=== PATIENT | female | born 1955 | race Caucasian/White ===

== ENCOUNTER 2024-10-26 23:15 | Inpatient (IN) | payer MEDICARE, SELFPAY ==
--- NOTE | ~2024-10-26 | CT_ITS ---
CT of the Abdomen and Pelvis: Indication: Abdominal pain Technique: 2.5 mm axial scans were obtained through the abdomen and pelvis following intravenous adm inistration of 100 cc of Omnipaque 350. Dose reduction technique was used on this scan by utilizing a utomated exposure control and iterative reconstruction technique. The dose-length product (DLP) was 1 940.28 mGy-cm. Findings: Scans through the lung bases are unremarkable. The liver, spleen, pancreas, adrenals and kidneys are within normal limits. Calcified gallstone prese nt. No evidence of aortic aneurysm. No lymphadenopathy. There are multiple mildly distended small bowel loops with extensive haziness/inflammatory change in the mesentery adjacent to these loops. Large bowel unremarkable. No abscess or free air. No well deli neated transition point. Images through the pelvis were performed. Urinary bladder unremarkable. No pelvic mass seen. Impression: Multiple mildly distended small bowel is within central mesenteric haziness/inflammatory change. [place] for early/partial small bowel obstruction versus possibly enteritis and reactive ileus. Cholelithiasis. Reviewed, dictated and finalized at [facility]. NG MACHINE ATTACHMENT TESTER Impression: Multiple mildly distended small bowel is within central mesenteric haziness/inf lammatory change. Correlate for early/partial small bowel obstruction versus po ssibly enteritis and reactive ileus. Cholelithiasis.
--- NOTE | ~2024-10-26 | XR_ITS ---
XR chest 1V portable 11/02/2024 11:14 Indication: Hypoxia Procedure: AP portable chest Comparison: Comparison to multiple prior studies sequentially, with oldest reviewed study dated 04/2024 . Findings: Endotracheal tube tip 3.3 cm above the jonathon. NG tube in the stomach. Cardiomegaly. Mild i nterstitial edema. No significant effusion. No pneumothorax. Impression: 1: Persistent mild interstitial edema. Reviewed, dictated and finalized at location B. ER COVERING MACHINE OPERATOR Impression: 1: Persistent mild interstitial edema.
--- NOTE | ~2024-10-26 | XR_ITS ---
EXAMINATION: XR chest 1V portable DATE: 10/28/2024 10:30 INDICATION: Acute respiratory failure. TECHNIQUE: A single frontal view of the chest was obtained. COMPARISON: Chest single view 10/27/2024, CT abdomen and pelvis 10/27/24 FINDINGS: Calcified left lung nodules and calcified left hilar lymph nodes are consistent with old gr anulomatous disease. The lung volumes are small. There are airspace opacities in the perihilar region s. No pleural effusion or pneumothorax. Cardiomegaly is noted. The endotracheal tube tip is 2.9 cm ab ove the jonathon. A right internal jugular central venous catheter is seen with tip at the superior cav oatrial junction. The nasogastric tube tip is in the stomach. IMPRESSION: 1. Small lung volumes with stable airspace opacities in the perihilar regions, consistent with atelec tasis versus pneumonia. 2. Cardiomegaly. Reviewed, dictated and finalized at location A. L COATER OPERATOR IMPRESSION: 1. Small lung volumes with stable airspace opacities in the perihilar regions, consistent with atelectasis versus pneumonia. 2. Cardiomegaly.
--- NOTE | ~2024-10-26 | XR_ITS ---
EXAMINATION: XR abdomen/kub 1V DATE: 10/27/2024 12:53 INDICATION: Small bowel obstruction. TECHNIQUE: A supine view of the abdomen on 3 radiographs was obtained. COMPARISON: CT abdomen and pelvis 10/27/2024 FINDINGS: Sensitivity is decreased by obesity. There are multiple dilated loops of small bowel. The c olon is decompressed. IMPRESSION: 1. Closed-loop small bowel obstruction. Reviewed, dictated and finalized at location A. SYSTEMS ANALYST
--- NOTE | ~2024-10-26 | XR_ITS ---
XR chest ET placement Ordering provider: Wilmer Hemphill History: 68 years Female with . et placement AND CENTRAL LINE . Comparison: None. FINDINGS: MEDIASTINUM: The cardiac silhouette is slightly enlarged. Endotracheal tube with the tip about 2.9 c m above the jonathon. Right central line with the tip overlying superior vena cava. Nasogastric tube ex tending to the stomach. LUNGS: No effusions or pneumothorax. Opacification in the left lung base medially. Opacification the right upper and lower lobes. OTHER: No free air under the diaphragm. Degenerative changes of the spine. Contrast seen in the stoma ch. IMPRESSION: Bilateral pneumonia. Underlying pulmonary edema is not excluded. Reviewed, dictated and finalized at location A. ENT CARE TECHNICIAN
--- NOTE | ~2024-10-26 | XR_ITS ---
XR abdomen gastric tube insert Ordering provider: Wilmer Hemphill MD History: . ng placement . Comparison: None. FINDINGS: BOWEL: Nonobstructive bowel gas pattern. Nasogastric tube seen in the stomach. Contrast also noted in the stomach. ORGANOMEGALY: None. SIGNIFICANT PATHOLOGIC CALCIFICATIONS: Radiopaque shadow in the right kidney which may be residual co ntrast or stones. OTHER: No free air is seen under the diaphragm. Degenerative changes of the spine. IMPRESSION: NO ACUTE ABDOMINAL FINDINGS. Possible stones in the right kidney. Reviewed, dictated and finalized at location A. CTOR CASE MANAGEMENT
--- NOTE | ~2024-10-26 | XR_ITS ---
Portable chest x-ray Comparison: 10/29/2024 Clinical History: Respiratory failure Findings: Endotracheal tube, NG tube, and right IJ line are in place. There is mild central pulmonar y edema pattern. No pleural effusion. Cardiomediastinal silhouette is stable. Bones and soft tissues are unremarkable. Impression: Mild central pulmonary edema. Support tubes, as above. Reviewed, dictated and finalized at [facility]. CE SUPPORT ASSISTANT Impression: Mild central pulmonary edema. Support tubes, as above.
--- NOTE | ~2024-10-26 | XR_ITS ---
EXAMINATION: XR chest 1V portable DATE: 10/29/2024 05:44 INDICATION: Acute respiratory failure. TECHNIQUE: A single frontal view of the chest was obtained. COMPARISON: Chest single view 10/28/2024, CT abdomen and pelvis 10/27/2024 FINDINGS: The lung volumes are small. A calcified left lung nodule and calcified left hilar lymph nod es are consistent with old granulomatous disease. There are airspace opacities in left lower lobe. No pleural effusion or pneumothorax. Cardiomegaly is noted. The nasogastric tube tip is beyond the infe rior margin of the radiograph, but at least to the stomach. The endotracheal tube tip is 2.7 cm above the jonathon. A right internal jugular central venous catheter is seen with tip at the superior cavoat rial junction. IMPRESSION: 1. Small lung volumes with stable airspace opacities in left lower lobe, consistent with atelectasis versus pneumonia. 2. Cardiomegaly. Reviewed, dictated and finalized at location A. D SERVICE COORDINATOR IMPRESSION: 1. Small lung volumes with stable airspace opacities in left lower lobe, consis tent with atelectasis versus pneumonia. 2. Cardiomegaly.
--- NOTE | ~2024-10-26 | XR_ITS ---
EXAMINATION: XR sm bowel follow through WS DATE: 10/27/2024 12:32 INDICATION: Small bowel obstruction. TECHNIQUE: Oral contrast was administered, and a time course of radiographs of the abdomen was obtain ed. Fluoroscopy of the small bowel was not performed. Fluoroscopy exposure time was 0 minutes. The to geoffrey number of images was 6. COMPARISON: CT abdomen and pelvis 10/27/2024 FINDINGS: The nasogastric tube tip is in the stomach. At 2 hours, contrast is still in the stomach. There are m ultiple dilated loops of small bowel. The colon is decompressed. There is a gallstone in the gallblad richie. IMPRESSION: 1. Closed-loop small bowel obstruction. Reviewed, dictated and finalized at location A. OGRAPHER
--- NOTE | ~2024-10-26 | XR_ITS ---
Upright portable view of the abdomen Clinical history: NG tube placement Findings: NG tube is in satisfactory position. Probable mildly dilated small bowel loops in the upper abdomen. No free air. No abnormal mass lesion or calcification is seen. Osseous structures are intac t. Impression: NG tube in satisfactory position. Probable mildly distended small bowel loops in the upper abdomen. Reviewed, dictated and finalized at location . HOLDER Impression: NG tube in satisfactory position. Probable mildly distended small bowel loops i n the upper abdomen.
[2024-10-26 23:08] VITALS: BP 164/79; PULSE 90; RESP 20; TEMP 36.6; O2SAT 96
--- NOTE | 2024-10-26 23:33 | ED.NAVMDI ---
HPI - Nausea/Vomiting/Diarrhea General Chief complaint: Nausea/Vomiting/Diarrhea Stated complaint: GEN ABD PAIN, N/V AFTER EATING, FELL TODAY. Time Seen by Provider: 10/26/24 23:28 Source: patient Mode of arrival: ambulatory Limitations: no limitations History of Present Illness HPI Narrative: This is a 68-year-old female with PMH of HTN, hypothyroid who presents to the ED via EMS for chief complaint of sudden-onset abdominal pain, nausea and vomiting. Reports this started tonight around 6:00 p.m. while eating dinner with her family. Reports that she has known history of abdominal hernia but the area feels much more distended and tight today. Reports history of gallstones in the past but has not had any abdominal surgeries. Denies recent illness. Denies fevers, chills, hematemesis, diarrhea, chest pain, shortness of breath. Related Data Allergies Allergy/AdvReac Type Severity Reaction Status Date / Time No Known Allergies Allergy Verified 10/26/24 23:18 Review of Systems Review of Systems: All systems as dictated in HPI Exam Narrative: GENERAL: Well-appearing, well-nourished, and in no acute distress. HEAD: Normocephalic, atraumatic. EYES: PERRLA and EOMI. ENT: Nares clear, no rhinorrhea or epistaxis. Mucous membranes moist. Oropharynx without tonsillar hypertrophy exudate or other lesions. NECK: Supple. No adenopathy or masses. CHEST: No respiratory distress. Clear to auscultation. No wheezes rales or rhonchi HEART: Regular rate and rhythm. No murmur heard. Normal peripheral pulses. ABDOMEN: Tenderness to the epigastrium. Abdominal distension present. Soft, otherwise nontender, normal active bowel sounds. Negative Lane sign. Negative peritoneal signs. MSK: Normal range of motion. No edema. SKIN: Warm, dry, no rash. NEURO: Alert and oriented x4. No focal deficits. PSYCH: Normal mood and affect. Course Vital Signs Vital signs: Vital Signs Temperature 97.8 F 10/26/24 23:08 Pulse Rate 90 10/26/24 23:08 Respiratory Rate 20 10/26/24 23:08 Blood Pressure 164/79 H 10/26/24 23:08 Pulse Oximetry 96 10/26/24 23:08 Oxygen Delivery Room Air 10/26/24 23:08 Temperature 97.8 F 10/26/24 23:08 Pulse Rate 101 H 10/27/24 01:34 Respiratory Rate 18 10/27/24 01:34 Blood Pressure 144/54 H 10/27/24 01:34 Pulse Oximetry 99 10/27/24 01:34 Oxygen Delivery Nasal Cannula 10/27/24 00:47 Oxygen Flow Rate 3 10/27/24 00:47 MDM - Nausea/Vomiting/Diarrhea MDM Narrative Medical decision making narrative: This is a 60-year-old female who presents to the ED for chief complaint of abdominal pain, nausea and vomiting. Vitals are normal. Exam shows tenderness and abdominal distention present. Lab work shows mildly elevated white count of 10.9. CMP is unremarkable overall. Urinalysis does show evidence of UTI with some dehydration. CT abdomen pelvis with IV contrast: Dilated small bowel measuring up to 3.1 cm, concerning for a bowel obstruction. Perienteric edema. No definite transition point identified. Surgical evaluation should be considered. Spoke with surgeon, Dr. Morales who agrees to consult on the patient. Recommends admitting to the hospitalist after placing NG tube. Spoke with hospitalist, Dr. Mccarty who agrees to admit the patient to medical floor for observation. Lab Data 10/26/24 23:32 10/26/24 23:32 Labs: Lab Results 10/26/24 10/27/24 10/27/24 Range/Units 23:32 00:17 01:33 WBC 10.9 H (4.5-10.0) K/mm3 RBC 5.21 (4.2-5.4) M/mm3 Hgb 14.6 (12.0-15.0) g/dL Hct 47.1 H (37.0-47.0) % MCV 90.4 (80-100) fl MCH 28.0 (26-34) pg MCHC 31.0 L (32-36) g/dl RDW 16.8 H (11.5-14.5) % Plt Count 291 (150-375) k/mm3 MPV 9.4 (7.4-10.4) fl Immature Gran % (Auto) 0.5 (0-0.5) % Neut % (Auto) 81.9 H (45.5-73.1) % Lymph % (Auto) 9.3 L (18.3-44.2) % [place] % (Auto) 5.4 (2.6-8.5) % Eos % (Auto) 2.5 (0-4.4) % Baso % (Auto) 0.4 (0.2-1.2) % Lymph # (Auto) 1.02 (0.9-3.2) K/mm3 [place] # (Auto) 0.6 (0.1-0.6) K/mm3 Eos # (Auto) 0.3 (0-0.3) K/mm3 Baso # (Auto) 0.0 (0.0-0.1) K/mm3 Abs Immat Gran (auto) 0.05 H (0.00-0.031) K/mm3 Absolute Neuts (auto) 9.0 H (1.3-6.7) K/mm3 Absolute Nucleated RBC 0.000 (0.0-0.012) K/mm3 Nucleated RBC % 0.0 (0.0-0.2) % Sodium 139 (137-145) mmol/L Potassium 5.2 H (3.4-5.0) mmol/L Chloride 102 (98-107) mmol/L Carbon Dioxide 35 H (22-30) mmol/L Anion Gap 2 L (4-12) mmol/L BUN 23 H (7-17) mg/dL Creatinine 1.00 (0.7-1.0) mg/dL Estim Creat Clear Calc 70 ml/min Estimated GFR 55 L (59 - ) Glucose 134 H (65-110) mg/dL Lactic Acid 1.6 (0.7-2.0) mmol/L Calcium 9.5 (8.4-10.2) mg/dL Total Bilirubin 0.5 (0.2-1.3) mg/dL AST 27 (14-36) U/L ALT 18 (6-35) U/L Alkaline Phosphatase 116 (38-126) U/L Total Protein 8.0 (6.3-8.2) g/dL Albumin 4.2 (3.5-5.1) g/dL Lipase 151 (23-300) U/L Urine Color Pending Urine Appearance Pending Urine pH Pending Ur Specific [place] Pending Urine Protein Pending Urine Glucose (UA) Pending Urine Ketones Pending Ur Blood (Man) Pending Urine Nitrate Pending Urine Bilirubin Pending Urine Urobilinogen Pending Leukocyte Esterase Rfl Pending Discharge Plan Discharge Clinical Impression: Bowel obstruction, Acute UTI Patient Disposition: Still a Patient Condition: Stable Instructions: Antibiotic Form Follow-up/Referrals: UNKNOWN,DOCTOR [Primary Care Provider] -
[2024-10-26 23:37] LABS: Basophils Percent Auto 0.4 % (0.2-1.2); Eosinophils Absolute Auto 0.3 K/mm3 (0-0.3); Eosinophils Percent Auto 2.5 % (0-4.4); Hematocrit 47.1 % (37.0-47.0); Hemoglobin 14.6 g/dL (12.0-15.0); Immature Granulocyte Absolute 0.05 K/mm3 (0.00-0.031); Immature Granulocyte Percent A 0.5 % (0-0.5); Lymphocytes Absolute Auto 1.02 K/mm3 (0.9-3.2); Lymphocytes Percent Auto 9.3 % (18.3-44.2); Mean Corpuscular Volume 90.4 fl (80-100); Mean Platelet Volume 9.4 fl (7.4-10.4); Monocytes Absolute Auto 0.6 K/mm3 (0.1-0.6); Monocytes Percent Auto 5.4 % (2.6-8.5); Neutrophils Percent Auto 81.9 % (45.5-73.1); Platelet Count Result 291 k/mm3 (150-375); Red Blood Count 5.21 M/mm3 (4.2-5.4); Red Cell Distribution Width 16.8 % (11.5-14.5); White Blood Count 10.9 K/mm3 (4.5-10.0)
[2024-10-26 23:47] LABS: Alanine Aminotransferase 18 U/L (6-35); Albumin Level 4.2 g/dL (3.5-5.1); Alkaline Phosphatase 116 U/L (38-126); Anion Gap 2 mmol/L (4-12); Aspartate Amino Transferase 27 U/L (14-36); Bilirubin,Total 0.5 mg/dL (0.2-1.3); Blood Urea Nitrogen 23 mg/dL (7-17); Calcium 9.5 mg/dL (8.4-10.2); Carbon Dioxide 35 mmol/L (22-30); Chloride 102 mmol/L (98-107); Estimated CRCL calculation 70 ml/min; Estimated Glomerular Filt Rate 55; Glucose 134 mg/dL (65-110); Lipase 151 U/L (23-300); Potassium 5.2 mmol/L (3.4-5.0); Sodium 139 mmol/L (137-145)
[2024-10-27] VITALS (25 sets, daily range): BP systolic 137–157; BP diastolic 54–92; PULSE 80–104; RESP 12–29; TEMP 36.2–37.4; O2SAT 79–100; BMI 61.0
[2024-10-27] MEDS: ONDANSETRON INJ 4 MG/2 ML VIAL IV PUSH (00:08)
[2024-10-27] MEDS: HYDROmorphone HCL INJ (*CRX) 1 MG/ML SYR IV PUSH (00:08)
[2024-10-27] MEDS: SODIUM CHLORIDE 0.9% IV 1,000 ML 999 ML IV CONT (00:08)
[2024-10-27 00:32] LABS: Lactic Acid Reflex 1.6 mmol/L (0.7-2.0)
--- NOTE | 2024-10-27 01:37 | PC.NURSE ---
straight cath was done by this RN and Aly[facility] sample[facility] Pt voided 50 ml or urine. Pt urine appeared dark yellow and cloudy with an odor. Mariel care was done as well.
[2024-10-27] MEDS: HYDROmorphone HCL INJ (*CRX) 1 MG/ML SYR 0.5 MG IV PUSH ×2 (02:16→08:14)
[2024-10-27 02:24] LABS: Add Urine Microscopic? YES; Appearance Urine Cloudy (Clear); Bacteria Urine 4+ /hpf; Bilirubin Urine Negative (Negative); Blood Urine 1+ (Negative); Budding Yeast Urine Present /hpf; Color Urine Yellow (Yellow); Glucose Urine UA Negative (Negative); Ketones Urine Negative (Negative); Leukocyte Esterase Ur 2+ LEU/UL (Negative); Need Manual Microscopic Reviewed; Nitrate Urine Negative (Negative); Protein Urine 3+ mg/dL (Negative); RBC Urine 0-2 /hpf (0-2); Specific Grav Ur > 1.045 (1.001-1.035); Squamous Epithelial Cell Urine None Seen /hpf (Few); Urobilinogen Urine 0.2 mg/dL (<2.0); WBC Urine >100 /hpf (0-3); pH Urine 5.5 (5.0-9.0)
--- NOTE | 2024-10-27 05:32 | ADMGEN ---
This patient, June Petty, was admitted to Medical Room 260-01. Patient/family oriented to hospital policies and general routines including ID bracelet, bed and alarms, visiting hours, pain management, procedures, bathroom and other care routines, personal items, smoking policy, room service/diet, and visiting hours. Information on how to activate the Rapid Response Team has been discussed. Patient/Family are encouraged to report perceived risks to care and to ask questions if they do not understand what they are told or what they should do.
[2024-10-27] MEDS: SODIUM CHLORIDE 0.9% IV 1,000 ML 125 ML IV CONT (05:50)
[2024-10-27 09:01] LABS: Basophils Percent Auto 0.2 % (0.2-1.2); Hematocrit 53.6 % (37.0-47.0); Immature Granulocyte Absolute 0.15 K/mm3 (0.00-0.031); Immature Granulocyte Percent A 0.7 % (0-0.5); Lymphocytes Absolute Auto 0.43 K/mm3 (0.9-3.2); Mean Corpuscular HGB Conc 29.9 g/dl (32-36); Mean Corpuscular Hemoglobin 27.9 pg (26-34); Mean Corpuscular Volume 93.5 fl (80-100); Mean Platelet Volume 9.4 fl (7.4-10.4); Monocytes Absolute Auto 0.9 K/mm3 (0.1-0.6); Monocytes Percent Auto 4.1 % (2.6-8.5); Neutrophils Absolute Auto 20.4 K/mm3 (1.3-6.7); Platelet Count Result 350 k/mm3 (150-375); Red Blood Count 5.73 M/mm3 (4.2-5.4); Red Cell Distribution Width 17.3 % (11.5-14.5); White Blood Count 21.9 K/mm3 (4.5-10.0)
--- NOTE | 2024-10-27 09:57 | PM.CNGS ---
Assessment and Plan Assessment and plan (1) Bowel obstruction: Code(s): K56.609 - Unspecified intestinal obstruction, unspecified as to partial versus complete obstruction Status: Acute Assessment and Plan: Exam largely benign, continue conservative management with NG tube decompression bowel rest, will get small bowel series for further evaluation, GI consultation for suggested enteritis on CT (2) Acute UTI: Code(s): N39.0 - Urinary tract infection, site not specified Status: Acute Assessment and Plan: Continue antibiotics per primary team History of Present Illness Consult details Consult date: 10/27/24 Reason for consult: abdominal pain Requesting physician: Bhavesh Garibay PA-C Narrative: The patient is a 68-year-old female presenting to the emergency department complaining severe, crampy abdominal pain. The patient reports the pain is diffuse in nature and started acutely around dinnertime yesterday. So seated abdominal distension, nausea. The patient denies previous similar episodes. Workup in the emergency department, including imaging significant for early small-bowel obstruction and enteritis. Review of Systems Review of Systems: All systems reviewed & are unremarkable except as noted in HPI and below PMFSH Social History Social History Smoking status: Never smoker Alcohol intake: never Substance use: never Substance use type: does not use Do You Feel Safe in your Home?: Yes Lack of Transportation: No Lack of Food: Never True Current Housing: I Have Housing Concerned About Future Housing: No Difficulty Paying Gas/Electric Bills: No Difficulty Paying for Meds: No Currently Unemployed: No Education: High School Diploma/GED Difficulty w/ Childcare or Family Care: No Spiritual care concerns: No Meds Home Medications and Allergies Home Medications Medication Instructions Recorded Confirmed Type allopurinol 100 mg tablet 100 mg PO DAILY 10/27/24 10/27/24 History amlodipine 5 mg tablet 5 mg PO DAILY 10/27/24 10/27/24 History atorvastatin 20 mg tablet 20 mg PO DAILY 10/27/24 10/27/24 History ferrous sulfate 325 mg (65 mg 325 mg PO DAILY 10/27/24 10/27/24 History iron) tablet furosemide 40 mg tablet 40 mg PO DAILY 10/27/24 10/27/24 History gabapentin 300 mg capsule 300 mg PO TID 10/27/24 10/27/24 History levothyroxine 137 mcg tablet 137 mcg PO DAILY 10/27/24 10/27/24 History montelukast 10 mg tablet 10 mg PO HS 10/27/24 10/27/24 History Allergies Allergy/AdvReac Type Severity Reaction Status Date / Time No Known Allergies Allergy Verified 10/26/24 23:18 Vital Signs Vital Signs - 24 hr 10/26/24 23:08 10/27/24 00:47 10/27/24 00:47 Temperature 36.6 C Pulse Rate 90 Respiratory Rate 20 Blood Pressure 164/79 H Pulse Oximetry 96 79 L 100 Oxygen Delivery Room Air Room Air Nasal Cannula Oxygen Flow Rate 3 10/27/24 01:34 10/27/24 03:25 10/27/24 05:27 Temperature Pulse Rate 101 H 98 91 Respiratory Rate 18 18 12 Blood Pressure 144/54 H 157/92 H 154/73 H Pulse Oximetry 99 97 97 Oxygen Delivery Oxygen Flow Rate 10/27/24 05:49 10/27/24 05:57 Temperature 36.2 C L Pulse Rate 100 Respiratory Rate 20 Blood Pressure 141/55 H Pulse Oximetry 95 95 Oxygen Delivery Nasal Cannula Oxygen Flow Rate 3 Exam Const: General: cooperative, uncomfortable and obese HENMT: Head: normal to inspection, normocephalic and atraumatic Eyes: General: appearance normal, both eyes and all related structures Neck: Neck: normal visual inspection, full ROM and no lymphadenopathy Resp: Auscultation: diminished lung sounds Cardio: Rate: regular rate Rhythm: regular rhythm GI: Inspection: normal to inspection, distended, Pannus present and obesity GI Palp: Yes abdominal tenderness, Yes Soft to palpation, Yes Tenderness to palpation present (GI), No Guarding due to palpation present (GI) and No Rigid due to palpation Skin: General skin exam: normal color and no rashes or lesions noted Neuro: General: patient oriented x3 and CN's II-XI intact bilaterally Extrem: General: normal to inspection and full ROM Results Labs 10/27/24 08:51 10/26/24 23:32 Labs: Abnormal lab results 10/26/24 10/27/24 10/27/24 Range/Units 23:32 01:55 08:51 WBC 10.9 H 21.9 H (4.5-10.0) K/mm3 RBC 5.73 H (4.2-5.4) M/mm3 Hgb 16.0 H (12.0-15.0) g/dL Hct 47.1 H 53.6 H (37.0-47.0) % MCHC 31.0 L 29.9 L (32-36) g/dl RDW 16.8 H 17.3 H (11.5-14.5) % Immature Gran % (Auto) 0.7 H (0-0.5) % Neut % (Auto) 81.9 H 93.0 H (45.5-73.1) % Lymph % (Auto) 9.3 L 2.0 L (18.3-44.2) % Lymph # (Auto) 0.43 L (0.9-3.2) K/mm3 [place] # (Auto) 0.9 H (0.1-0.6) K/mm3 Abs Immat Gran (auto) 0.05 H 0.15 H (0.00-0.031) K/mm3 Absolute Neuts (auto) 9.0 H 20.4 H (1.3-6.7) K/mm3 Potassium 5.2 H (3.4-5.0) mmol/L Carbon Dioxide 35 H (22-30) mmol/L Anion Gap 2 L (4-12) mmol/L BUN 23 H (7-17) mg/dL Estimated GFR 55 L (59 - ) Glucose 134 H (65-110) mg/dL Urine Appearance Cloudy H (Clear) Ur Specific [place] > 1.045 H (1.001-1.035) Urine Protein 3+ H (Negative) mg/dL Ur Blood (Man) 1+ H (Negative) Leukocyte Esterase Rfl 2+ H (Negative) JENNA/UL Urine WBC >100 H (0-3) /hpf Urine Yeast (Budding) Present H (None) /hpf Diabetes panel 10/26/24 Range/Units 23:32 Sodium 139 (137-145) mmol/L Potassium 5.2 H (3.4-5.0) mmol/L Chloride 102 (98-107) mmol/L Carbon Dioxide 35 H (22-30) mmol/L BUN 23 H (7-17) mg/dL Creatinine 1.00 (0.7-1.0) mg/dL Glucose 134 H (65-110) mg/dL Calcium 9.5 (8.4-10.2) mg/dL AST 27 (14-36) U/L ALT 18 (6-35) U/L Alkaline Phosphatase 116 (38-126) U/L Total Protein 8.0 (6.3-8.2) g/dL Albumin 4.2 (3.5-5.1) g/dL Calcium panel 10/26/24 Range/Units 23:32 Calcium 9.5 (8.4-10.2) mg/dL Albumin 4.2 (3.5-5.1) g/dL Pituitary panel 10/26/24 Range/Units 23:32 Sodium 139 (137-145) mmol/L Potassium 5.2 H (3.4-5.0) mmol/L Chloride 102 (98-107) mmol/L Carbon Dioxide 35 H (22-30) mmol/L BUN 23 H (7-17) mg/dL Creatinine 1.00 (0.7-1.0) mg/dL Glucose 134 H (65-110) mg/dL Calcium 9.5 (8.4-10.2) mg/dL Adrenal panel 10/26/24 Range/Units 23:32 Sodium 139 (137-145) mmol/L Potassium 5.2 H (3.4-5.0) mmol/L Chloride 102 (98-107) mmol/L Carbon Dioxide 35 H (22-30) mmol/L BUN 23 H (7-17) mg/dL Creatinine 1.00 (0.7-1.0) mg/dL Glucose 134 H (65-110) mg/dL Calcium 9.5 (8.4-10.2) mg/dL Total Bilirubin 0.5 (0.2-1.3) mg/dL AST 27 (14-36) U/L ALT 18 (6-35) U/L Alkaline Phosphatase 116 (38-126) U/L Total Protein 8.0 (6.3-8.2) g/dL Albumin 4.2 (3.5-5.1) g/dL All other labs normal. Imaging Abdominal x-ray: report reviewed and image reviewed Abdomen CT scan report/results: report reviewed and image reviewed
--- NOTE | 2024-10-27 10:33 | P.CONGI_ITS ---
I, Darvin Nichols MD, have provided a substantive portion of the care of this patient and discussed the patient with my Nurse Practitioner. I have reviewed any new relevant radiographic and laboratory results including medications. I agree with her documentation as noted below.?I personally performed the medical decision making and much of the history and exam for this encounter. briefly, she came with severe abdominal pain, n/v. Diagnosed with small bowel obstruction on admission but more uncomfortable while she was getting SBFT. Repeat KU showed closed loop small bowel obstruction. Surgery now is planning to take patient to OR. Will follow along. Assessment and Plan Assessment and plan (1) Abdominal pain: Qualifiers: Abdominal location: generalized Qualified Code(s): R10.84 - Generalized abdominal pain Code(s): R10.9 - Unspecified abdominal pain Status: Acute (2) Nausea and vomiting: Qualifiers: Vomiting type: bilious vomiting Qualified Code(s): R11.14 - Bilious vomiting Code(s): R11.2 - Nausea with vomiting, unspecified Status: Acute (3) Leukocytosis: Qualifiers: Leukocytosis type: unspecified Qualified Code(s): D72.829 - Elevated white blood cell count, unspecified Code(s): D72.829 - Elevated white blood cell count, unspecified Status: Acute (4) Abnormal digestive system diagnostic imaging: Code(s): R93.3 - Abnormal findings on diagnostic imaging of other parts of digestive tract Status: Acute (5) Enteritis: Code(s): K52.9 - Noninfective gastroenteritis and colitis, unspecified Status: Acute (6) Abdominal distention: Code(s): R14.0 - Abdominal distension (gaseous) Status: Acute (7) Bowel obstruction: Qualifiers: Intestinal obstruction type: unspecified ileus Qualified Code(s): K56.7 - Ileus, unspecified Code(s): K56.609 - Unspecified intestinal obstruction, unspecified as to partial versus complete obstruction Status: Acute Plan 1. Generalized abdominal pain/ abdominal distension /abnormal imaging digestive/enteritis/SBO vs ileus/nausea and vomiting /Leukocytosis: Endoscopy Hx unknown. CT scan today showed multiple mildly distended small bowel is within central mesenteric haziness / inflammatory changes. Possible early/ partial small bowel obstruction versus enteritis versus reactive ileus. Abdominal x-ray this morning showed probable mildly dilated small bowel loops in the upper abdomen and NG tube in satisfactory position. Patient was seen on stretcher in supine poisition in Radiology as she had been down there for a few hours pending completion of a small-bowel follow-through. She had nasal cannula connected to O2. NG tube was in place but not connected to suction. Patient states that she started having abdominal distention yesterday around 6:00 p.m. No bowel movement or flatulence since yesterday. She complains of generalized moderate to severe abdominal pain denied any nausea or vomiting at time of visit. Per radiologist at 2 hr vega of the study contrast had not even exited the stomach. Patient had tinkling bowel sound in the LLQ and hypoactive bowel sounds throughout the rest of the abdomen. Her abdominal distention seem to be more prominent on the left side. Dr. Morales was contacted at 12:09 voicing concerns about patient's abdominal pain, discomfort, and significantly delayed small bowel follow-through. Dr. Morales recommended a boarding small-bowel follow-through and returning patient back to her room and restart suction per nasal cannula. I spoke with the patients nurse and advised the cautious use of opioids as this can further exacerbate her symptoms. WBC's have increased since yesterday from 11-->22 while on ceftriaxone. labs show lactic acid 1.6, lipase 151, LFTs normal, HGB 16, HCT 54, MCV 350. Todays BMP pending at time of visit but yesterday showed sodium 139, potassium 5.2, BUN 23, creatinine 1.00. * bedside stat KUB ordered to exclude perforation * continue antibiotics * no indication for endoscopic evaluation at this time * keep NG tube in place connected to LIS * Continue supportive care but care with opioids * surgery on case and updated on clinical findings Thank you very much for allowing me to share in the care this very nice patient This report may have been done utilizing a voice recognition system. Attempts have been made to correct errors. However, there may be uncorrected grammatical, spelling, and recognition errors present. GI Consult Note Consult date/time: 10/27/24 10:33 Reason for consult: SBO HPI: This is a 68 year old female with no significant PMSH who presents to the ER yesterday with complaints of abdominal pain, nausea and vomiting. GI consulted for SBO. Due to acute pain the patient was unable to provide much subjective in formation. Patient was seen on a stretcher in radiology. NG tube in place but not connected to suction. Patient was complaining of significant generalized abdominal pain and shortness of breath.Patient had a nasal cannula. Patient states that abdominal distention started yesterday around 6:00 p.m. and states her last bowel movement was yesterday. Denies any nausea or vomiting today. Patient had been down in Radiology for a few hours with radiologist stating that after 2 hours into the study contrast was still located within the stomach. ENDOSCOPY HISTORY: EGD and colonoscopy history unknown LABS AND STOOL STUDIES: Labs 10/26/2024 showed sodium 139, potassium 5.2, BUN 23, creatinine 1.00, GFR 55. WBC is 11, HGB 15, HCT 47, MCV 90, platelets 291. Total bilirubin 0.5, AST 27, ALT 18, alkaline phosphatase 116, albumin 4.2, lipase 151, lactic acid 1.6. IMAGING: Abdominal Xray 10/27/2024 Findings: NG tube is in satisfactory position. Probable mildly dilated small bowel loops in the upper abdomen. No free air. No abnormal mass lesion or calcification is seen. Osseous structures are intact. Impression: NG tube in satisfactory position. Probable mildly distended small bowel loops in the upper abdomen. CT abd/pelvis w/contrast 10/27/2024 Impression: Multiple mildly distended small bowel is within central mesenteric haz iness/inflammatory change. Correlate for early/partial small bowel obstruction versus possibly enteritis and reactive ileus. Cholelithiasis. Review of Systems Review of Systems: ROS unobtainable: Yes unobtainable due to medical condition Constitutional: Constitutional: Reports as per HPI ENT: Reports as per HPI Cardiovascular: Cardiovascular: Reports as per HPI, Denies chest pain, Reports pedal edema, Reports leg edema and Reports dyspnea Respiratory: Respiratory: Denies cough, Denies dyspnea and Reports dyspnea on exertion Gastrointestinal: Gastrointestinal: Reports as per HPI and Reports abdominal pain Comments: abdominal distention PMFSH Social History Social History Smoking status: Never smoker Alcohol intake: never Substance use: never Substance use type: does not use Do You Feel Safe in your Home?: Yes Lack of Transportation: No Lack of Food: Never True Current Housing: I Have Housing Concerned About Future Housing: No Difficulty Paying Gas/Electric Bills: No Difficulty Paying for Meds: No Currently Unemployed: No Education: High School Diploma/GED Difficulty w/ Childcare or Family Care: No Spiritual care concerns: No Meds Home Medications and Allergies Home Medications Medication Instructions Recorded Confirmed Type allopurinol 100 mg tablet 100 mg PO DAILY 10/27/24 10/27/24 History amlodipine 5 mg tablet 5 mg PO DAILY 10/27/24 10/27/24 History atorvastatin 20 mg tablet 20 mg PO DAILY 10/27/24 10/27/24 History ferrous sulfate 325 mg (65 mg 325 mg PO DAILY 10/27/24 10/27/24 History iron) tablet furosemide 40 mg tablet 40 mg PO DAILY 10/27/24 10/27/24 History gabapentin 300 mg capsule 300 mg PO TID 10/27/24 10/27/24 History levothyroxine 137 mcg tablet 137 mcg PO DAILY 10/27/24 10/27/24 History montelukast 10 mg tablet 10 mg PO HS 10/27/24 10/27/24 History Allergies Allergy/AdvReac Type Severity Reaction Status Date / Time No Known Allergies Allergy Verified 10/26/24 23:18 Vital Signs Vital Signs - 24 hr 10/26/24 23:08 10/27/24 00:47 10/27/24 00:47 Temperature 97.8 F Pulse Rate 90 Respiratory Rate 20 Blood Pressure 164/79 H Pulse Oximetry 96 79 L 100 Oxygen Delivery Room Air Room Air Nasal Cannula Oxygen Flow Rate 3 10/27/24 01:34 10/27/24 03:25 10/27/24 05:27 Temperature Pulse Rate 101 H 98 91 Respiratory Rate 18 18 12 Blood Pressure 144/54 H 157/92 H 154/73 H Pulse Oximetry 99 97 97 Oxygen Delivery Oxygen Flow Rate 10/27/24 05:49 10/27/24 05:57 Temperature 97.2 F L Pulse Rate 100 Respiratory Rate 20 Blood Pressure 141/55 H Pulse Oximetry 95 95 Oxygen Delivery Nasal Cannula Oxygen Flow Rate 3 Exam Const: General: cooperative, no acute distress, well developed and uncomfortable Orientation/consciousness: oriented to person, oriented to place, oriented to time and patient oriented x3 HENMT: Head: normal to inspection, normocephalic and atraumatic Mouth: Yes Normal oral and palatal mucosa present and Yes moist mucous membranes Eyes: General: appearance normal, both eyes and all related structures Conjunctivae: conjunctivae normal Sclera: sclerae normal Pupils: Equal, round and reactive pupils present Neck: Neck: normal visual inspection Chest: Chest palpation & inspection: normal inspection of the chest Resp: Effort & Inspection: normal respiratory effort and able to speak in complete sentences Auscultation: clear to auscultation bilaterally Cardio: Jugular venous distension: no JVD Rate: regular rate Rhythm: regular rhythm Heart sounds: S1 normal heart sound present and S2 normal heart sound present GI: Inspection: distended GI Palp: Yes Firmness to palpation present (GI), No Tenderness to palpation present (GI), Yes Guarding due to palpation present (GI) and Yes No hepatosplenomegaly present Auscultation: normal bowel sounds Rectal Exam: deferred Other: tinkling bowel sounds on the RLQ and hypoactive in all other quadrants Skin: General skin exam: erythema Wounds: wounds noted Other: bilateral lower legs Neuro: General: oriented to person, oriented to place, oriented to time and patient oriented x3 Cranial nerves: Yes Equal, round and reactive pupils present Speech: normal speech Extrem: General: normal to inspection, edema and pedal edema Psych: Appearance: grossly normal and well kempt Affect: normal affect Results Labs 10/27/24 08:51 10/26/24 23:32 Labs: Short CBC 10/26/24 10/27/24 Range/Units 23:32 08:51 WBC 10.9 H 21.9 H (4.5-10.0) K/mm3 Hgb 14.6 16.0 H (12.0-15.0) g/dL Hct 47.1 H 53.6 H (37.0-47.0) % Plt Count 291 350 (150-375) k/mm3 BMP 10/26/24 23:32 Sodium 139 Potassium 5.2 H Chloride 102 Carbon Dioxide 35 H BUN 23 H Creatinine 1.00 Glucose 134 H Calcium 9.5 Liver Function 10/26/24 Range/Units 23:32 Total Bilirubin 0.5 (0.2-1.3) mg/dL AST 27 (14-36) U/L ALT 18 (6-35) U/L Alkaline Phosphatase 116 (38-126) U/L Albumin 4.2 (3.5-5.1) g/dL Urine 10/27/24 Range/Units 01:55 Urine Color Yellow (Yellow) Urine Appearance Cloudy H (Clear) Urine pH 5.5 (5.0-9.0) Ur Specific [place] > 1.045 H (1.001-1.035) Urine Protein 3+ H (Negative) mg/dL Urine Glucose (UA) Negative (Negative) mg/dL
[2024-10-27] MEDS: LACTATED RINGERS 1,000 ML 30 ML IV CONT (14:00)
--- NOTE | 2024-10-27 14:00 | PC.NURSE ---
Attempted to call patient's sister at this time to update that June was going to surgery but the call went to voicemail.
--- NOTE | 2024-10-27 14:05 | P.HP_ITS ---
H&P: HPI History of Present Illness Date/Time: 10/27/24 14:05 Chief Complaint: ABD pain/N/V Narrative: Patient is a 68 year old female who presented to the ED with complaints of acute ABD pain a few hours after eating dinner she also endorse nausea and vomiting. Patient states she has had a HX of gallstones but this feeling was different. Patient with PMX of HTN, hypothyroidism, obesity, neuropathy, and iron deficiency anemia. Initial findings in the ED showed a WBC of 10.[address] ABD early/partial small bowel obstruction versus possibly enteritis and reactive ileus. UA was suspicious for UTI otherwise labs unremarkable and vitals stable. Patient had NG tube placed for decompression and was admitted to the medical unit. Upon assessment this am patient denied ABD pain but bowel distention present and no BM or Flatulence. Patient lethargic but able to answer questions but following asleep during assessment. F/U CBC with WBC up 21.9 and stat KUB with Closed-loop small bowel obstruction some concern for perforation. Patient was taken for immediate surgery. I had also been called with a potassium critical of 6.5 patient already pre-op, called to surgery and anesthesia. Review of Systems Review of Systems: All systems reviewed & are unremarkable except as noted in HPI and below PMFSH Past Medical History Medical History (Updated 10/27/24 @ 14:32 by Enrique Rodriguez MD) Cardiomyopathy Gout Hypertension Hypothyroidism Iron deficiency anemia Obesity Social History Social History Smoking status: Never smoker Alcohol intake: never Substance use: never Substance use type: does not use Do You Feel Safe in your Home?: Yes Lack of Transportation: No Lack of Food: Never True Current Housing: I Have Housing Concerned About Future Housing: No Difficulty Paying Gas/Electric Bills: No Difficulty Paying for Meds: No Currently Unemployed: No Education: High School Diploma/GED Difficulty w/ Childcare or Family Care: No Spiritual care concerns: No Meds Home Medications and Allergies Home Medications Medication Instructions Recorded Confirmed Type allopurinol 100 mg tablet 100 mg PO DAILY 10/27/24 10/27/24 History amlodipine 5 mg tablet 5 mg PO DAILY 10/27/24 10/27/24 History atorvastatin 20 mg tablet 20 mg PO DAILY 10/27/24 10/27/24 History ferrous sulfate 325 mg (65 mg 325 mg PO DAILY 10/27/24 10/27/24 History iron) tablet furosemide 40 mg tablet 40 mg PO DAILY 10/27/24 10/27/24 History gabapentin 300 mg capsule 300 mg PO TID 10/27/24 10/27/24 History levothyroxine 137 mcg tablet 137 mcg PO DAILY 10/27/24 10/27/24 History montelukast 10 mg tablet 10 mg PO HS 10/27/24 10/27/24 History Allergies Allergy/AdvReac Type Severity Reaction Status Date / Time No Known Allergies Allergy Verified 10/27/24 14:25 Vital Signs Vital Signs - 24 hr 10/26/24 23:08 10/27/24 00:47 10/27/24 00:47 Temperature 97.8 F Pulse Rate 90 Respiratory Rate 20 Blood Pressure 164/79 H Pulse Oximetry 96 79 L 100 Oxygen Delivery Room Air Room Air Nasal Cannula Oxygen Flow Rate 3 10/27/24 01:34 10/27/24 03:25 10/27/24 05:27 Temperature Pulse Rate 101 H 98 91 Respiratory Rate 18 18 12 Blood Pressure 144/54 H 157/92 H 154/73 H Pulse Oximetry 99 97 97 Oxygen Delivery Oxygen Flow Rate 10/27/24 05:49 10/27/24 05:57 Temperature 97.2 F L Pulse Rate 100 Respiratory Rate 20 Blood Pressure 141/55 H Pulse Oximetry 95 95 Oxygen Delivery Nasal Cannula Oxygen Flow Rate 3 Exam Narrative: * GENERAL: Lethargic but oriented x 3. able to answer question but falling asleep, toxic appearing pleasant morbidly obese * EYES: EOMI. No scleral icterus. PERRLA. * HEENT: Moist mucous membranes. * LUNGS: Clear to auscultation bilaterally. No accessory muscle use. * CARDIOVASCULAR: Regular rate and rhythm. No murmur. No JVD. S1-S2 * ABDOMEN: mild tenderness with moderate distention * EXTREMITIES: No edema. Non-tender * SKIN: BLE scaly edema with scant swelling. Erythema and excoriation to josr and lower ABD folds and inner bilateral thighs * NEUROLOGIC: No focal neurological deficits. CN II-XII grossly intact * PSYCHIATRIC: Appropriate mood and affect. H&P: Results Labs Labs: Short CBC 10/26/24 10/27/24 Range/Units 23:32 08:51 WBC 10.9 H 21.9 H (4.5-10.0) K/mm3 Hgb 14.6 16.0 H (12.0-15.0) g/dL Hct 47.1 H 53.6 H (37.0-47.0) % Plt Count 291 350 (150-375) k/mm3 BMP 10/26/24 23:32 Sodium 139 Potassium 5.2 H Chloride 102 Carbon Dioxide 35 H BUN 23 H Creatinine 1.00 Glucose 134 H Calcium 9.5 Liver Function 10/26/24 Range/Units 23:32 Total Bilirubin 0.5 (0.2-1.3) mg/dL AST 27 (14-36) U/L ALT 18 (6-35) U/L Alkaline Phosphatase 116 (38-126) U/L Albumin 4.2 (3.5-5.1) g/dL Urine 10/27/24 Range/Units 01:55 Urine Color Yellow (Yellow) Urine Appearance Cloudy H (Clear) Urine pH 5.5 (5.0-9.0) Ur Specific [place] > 1.045 H (1.001-1.035) Urine Protein 3+ H (Negative) mg/dL Urine Glucose (UA) Negative (Negative) mg/dL Imaging Abdominal x-ray: Radiologist's impression: EXAMINATION: XR sm bowel follow through WS DATE: 10/27/2024 12:32 INDICATION: Small bowel obstruction. TECHNIQUE: Oral contrast was administered, and a time course of radiographs of the abdomen was obtained. Fluoroscopy of the small bowel was not performed. Fluoroscopy exposure time was 0 minutes. The total number of images was 6. COMPARISON: CT abdomen and pelvis 10/27/2024 FINDINGS: The nasogastric tube tip is in the stomach. At 2 hours, contrast is still in the stomach. There are multiple dilated loops of small bowel. The colon is decompressed. There is a gallstone in the gallbladder. IMPRESSION: 1. Closed-loop small bowel obstruction. Assessment and Plan Assessment and plan (1) Small bowel obstruction: Code(s): K56.609 - Unspecified intestinal obstruction, unspecified as to partial versus complete obstruction Status: Acute Assessment and Plan: * CT ABD Closed-loop small bowel obstruction * Surgery consulted * WBC trended up to 21.9 from 10 with increasing distention stat KUB to R/O perforation * IV fluids * NPO * Pain control * antiemetics * NG tube to suction * CBC/CMP/mag daily * Went for immediate surgery 10/27 (2) Acute UTI: Code(s): N39.0 - Urinary tract infection, site not specified Status: Acute Assessment and Plan: * UA suspicious for UTI * Rocephin pending cultures (3) Hypertension: Code(s): I10 - Essential (primary) hypertension Status: Acute Assessment and Plan: * Mild hypertnesive * NPO * holding amlodipine * can add IV hydralazine PRN (4) Hypothyroidism: Code(s): E03.9 - Hypothyroidism, unspecified Status: Acute Assessment and Plan: * Will resume her levothyroxine (5) Iron deficiency anemia: Code(s): D50.9 - Iron deficiency anemia, unspecified Status: Acute Assessment and Plan: * Will resume ferrous sulfate * monitor Hgb * Transfuse PRBC if Hgb <7.0 (6) Obesity: Code(s): E66.9 - Obesity, unspecified Status: Acute Assessment and Plan: * encourage increased on physical activity and lifestyle modification * encourage outpatient weight loss clinic * BMI . * Diet exercise counseling done. * consult to dietitian. Plan Code status: Full code per patient DVT prophylaxis: SCD's Stress ulcer prophylaxis: Protonix 40 daily PT/OT notes: PT/OT post surgery Disposition: Patient admitted for SBO was taken to immediate surgery following F/U KUB. Quality VTE Prophylaxis VTE prophylaxis: mechanical ordered -Patient's previous records reviewed on admission -ER notes reviewed in detail on admission -discussed all findings and current treatment plan with patient/Family/POA -Consultations reviewed for recommendations -Patient's disposition for safe discharge discussed with director case Dictation performed by [employer] direct speech recognition software, therefore plate and weld inspector variants and typographical errors may occur. Hospitalist MIPS Advance Care Plan I have confirmed that the patient's Advanced Care Plan is present, code status is documented, or surrogate decision maker is listed in patient medical record.: Yes Medication Reconciliation I have utilized all available resources to obtain, update and review the patients current medications (includes all prescriptions, OTC, herbals, cannabis, and nutritional supplements).: Yes The patient is not eligible for med reconciliation; the patient is in a emergent medical situation where delaying treatment would jeopardize the patients health.: No
--- NOTE | 2024-10-27 14:08 | ECG_ITS ---
Test Date: 2024-10-27 14:17:01 Measurements Intervals [place] Rate: 100 P: 42 DC: 186 QRS: 35 QRSD: 89 T: 28 QT: 317 QTc: 410 Interpretive Statements SINUS TACHYCARDIA POSSIBLE INFERIOR MYOCARDIAL INFARCTION , PROBABLY OLD [30 ms Q WAVE IN II/aVF] No previous ECG available for comparison Electronically Signed On 10-27-2024 14:33:04 [employer]PA[employer] by Maria A Branch M.D.
--- NOTE | 2024-10-27 14:31 | P.PNAN_ITS ---
Anes - Initial Pre Proc Eval Procedure: Operation Date: 10/27/24 14:00 Proposed Procedures p Exploratory Laparotomy, Possible Bowel Resection, Possible Ostomy - Gaviota Morales MD Date/Time: 10/27/24 14:31 Surgeon: Lolis Boles APRN Pre Op Diagnosis: SBO Patient Data Age: 68 Gender: F Height: 1.57 m Weight: 151.2 kg Last Vital Signs Temp 36.2 C L 10/27/24 05:49 Pulse 100 10/27/24 05:49 Resp 20 10/27/24 05:49 BP 141/55 H 10/27/24 05:49 Pulse Ox 95 10/27/24 05:57 O2 Del Method Nasal Cannula 10/27/24 05:57 O2 Flow Rate 3 10/27/24 05:57 Allergies Allergy/AdvReac Type Severity Reaction Status Date / Time No Known Allergies Allergy Verified 10/27/24 14:25 Home Medications Medication Instructions Recorded Confirmed Type allopurinol 100 mg tablet 100 mg PO DAILY 10/27/24 10/27/24 History amlodipine 5 mg tablet 5 mg PO DAILY 10/27/24 10/27/24 History atorvastatin 20 mg tablet 20 mg PO DAILY 10/27/24 10/27/24 History ferrous sulfate 325 mg (65 mg 325 mg PO DAILY 10/27/24 10/27/24 History iron) tablet furosemide 40 mg tablet 40 mg PO DAILY 10/27/24 10/27/24 History gabapentin 300 mg capsule 300 mg PO TID 10/27/24 10/27/24 History levothyroxine 137 mcg tablet 137 mcg PO DAILY 10/27/24 10/27/24 History montelukast 10 mg tablet 10 mg PO HS 10/27/24 10/27/24 History Laboratory Tests 10/26/24 10/27/24 10/27/24 23:32 00:17 01:55 WBC 10.9 H K/mm3 (4.5-10.0) RBC 5.21 M/mm3 (4.2-5.4) Hgb 14.6 g/dL (12.0-15.0) Hct 47.1 H % (37.0-47.0) MCV 90.4 fl (80-100) MCH 28.0 pg (26-34) MCHC 31.0 L g/dl (32-36) RDW 16.8 H % (11.5-14.5) Plt Count 291 k/mm3 (150-375) MPV 9.4 fl (7.4-10.4) Immature Gran % (Auto) 0.5 % (0-0.5) Neut % (Auto) 81.9 H % (45.5-73.1) Lymph % (Auto) 9.3 L % (18.3-44.2) [place] % (Auto) 5.4 % (2.6-8.5) Eos % (Auto) 2.5 % (0-4.4) Baso % (Auto) 0.4 % (0.2-1.2) Lymph # (Auto) 1.02 K/mm3 (0.9-3.2) [place] # (Auto) 0.6 K/mm3 (0.1-0.6) Eos # (Auto) 0.3 K/mm3 (0-0.3) Baso # (Auto) 0.0 K/mm3 (0.0-0.1) Abs Immat Gran (auto) 0.05 H K/mm3 (0.00-0.031) Absolute Neuts (auto) 9.0 H K/mm3 (1.3-6.7) Absolute Nucleated RBC 0.000 K/mm3 (0.0-0.012) Nucleated RBC % 0.0 % (0.0-0.2) Sodium 139 mmol/L (137-145) Potassium 5.2 H mmol/L (3.4-5.0) Chloride 102 mmol/L (98-107) Carbon Dioxide 35 H mmol/L (22-30) Anion Gap 2 L mmol/L (4-12) BUN 23 H mg/dL (7-17) Creatinine 1.00 mg/dL (0.7-1.0) Estim Creat Clear Calc 70 ml/min Estimated GFR 55 L (59 - ) Glucose 134 H mg/dL (65-110) Lactic Acid 1.6 mmol/L (0.7-2.0) Calcium 9.5 mg/dL (8.4-10.2) Magnesium Total Bilirubin 0.5 mg/dL (0.2-1.3) AST 27 U/L (14-36) ALT 18 U/L (6-35) Alkaline Phosphatase 116 U/L (38-126) Total Protein 8.0 g/dL (6.3-8.2) Albumin 4.2 g/dL (3.5-5.1) Lipase 151 U/L (23-300) Urine Color Yellow (Yellow) Urine Appearance Cloudy H (Clear) Urine pH 5.5 (5.0-9.0) Ur Specific [place] > 1.045 H (1.001-1.035) Urine Protein 3+ H mg/dL (Negative) Urine Glucose (UA) Negative mg/dL (Negative) Urine Ketones Negative mg/dL (Negative) Ur Blood (Man) 1+ H (Negative) Urine Nitrate Negative (Negative) Urine Bilirubin Negative (Negative) Urine Urobilinogen 0.2 mg/dL (<2.0) Add Ur Microanalysis Reviewed Leukocyte Esterase Rfl 2+ H JENNA/UL (Negative) Urine RBC 0-2 /hpf (0-2) Urine WBC >100 H /hpf (0-3) Ur Squamous Epith Cells None seen /hpf (Few) Urine Bacteria 4+ /hpf Urine Casts 6-10 Urine Yeast (Budding) Present H /hpf (None) Blood Type Antibody Screen 10/27/24 10/27/24 08:51 14:02 WBC 21.9 H K/mm3 (4.5-10.0) RBC 5.73 H M/mm3 (4.2-5.4) Hgb 16.0 H g/dL (12.0-15.0) Hct 53.6 H % (37.0-47.0) MCV 93.5 fl (80-100) MCH 27.9 pg (26-34) MCHC 29.9 L g/dl (32-36) RDW 17.3 H % (11.5-14.5) Plt Count 350 k/mm3 (150-375) MPV 9.4 fl (7.4-10.4) Immature Gran % (Auto) 0.7 H % (0-0.5) Neut % (Auto) 93.0 H % (45.5-73.1) Lymph % (Auto) 2.0 L % (18.3-44.2) [place] % (Auto) 4.1 % (2.6-8.5) Eos % (Auto) 0.0 % (0-4.4) Baso % (Auto) 0.2 % (0.2-1.2) Lymph # (Auto) 0.43 L K/mm3 (0.9-3.2) [place] # (Auto) 0.9 H K/mm3 (0.1-0.6) Eos # (Auto) 0.0 K/mm3 (0-0.3) Baso # (Auto) 0.0 K/mm3 (0.0-0.1) Abs Immat Gran (auto) 0.15 H K/mm3 (0.00-0.031) Absolute Neuts (auto) 20.4 H K/mm3 (1.3-6.7) Absolute Nucleated RBC 0.000 K/mm3 (0.0-0.012) Nucleated RBC % 0.0 % (0.0-0.2) Sodium Pending Potassium Pending Chloride Pending Carbon Dioxide Pending Anion Gap Pending BUN Pending Creatinine Pending Estim Creat Clear Calc Pending Estimated GFR Pending Glucose Pending Lactic Acid Calcium Pending Magnesium Pending Total Bilirubin Pending AST Pending ALT Pending Alkaline Phosphatase Pending Total Protein Pending Albumin Pending Lipase Urine Color Urine Appearance Urine pH Ur Specific [place] Urine Protein Urine Glucose (UA) Urine Ketones Ur Blood (Man) Urine Nitrate Urine Bilirubin Urine Urobilinogen Add Ur Microanalysis Leukocyte Esterase Rfl Urine RBC Urine WBC Ur Squamous Epith Cells Urine Bacteria Urine Casts Urine Yeast (Budding) Blood Type Pending Antibody Screen Pending Patient hx anesthesia problems: none Family hx anesthesia problems: none Results Review: All pre-operative results and documents have been reviewed as part of the pre- operative evaluation. [facility] Past Medical History Medical History Cardiomyopathy Gout Hypertension Hypothyroidism Iron deficiency anemia Obesity Social History Social History Smoking status: Never smoker Alcohol intake: never Substance use: never Substance use type: does not use Do You Feel Safe in your Home?: Yes Lack of Transportation: No Lack of Food: Never True Current Housing: I Have Housing Concerned About Future Housing: No Difficulty Paying Gas/Electric Bills: No Difficulty Paying for Meds: No Currently Unemployed: No Education: High School Diploma/GED Difficulty w/ Childcare or Family Care: No Spiritual care concerns: No Anes - Eval Final PreProcedure Day of Procedure 10/27/24 14:31 Patient weight: super morbidly obese Heart: tachycardia Lungs: decreased breath sounds Airway: Mallampati scale class III Neurological: alert and oriented Last oral intake: >/= 8 hours ASA classification: V Emergent: yes Anesthetic plan: proceed Anesthesia type and monitoring: general ETT, standard monitoring and invasive monitoring arterial line and central venous line Results Review: All pre-operative results and documents have been reviewed as part of the pre- operative evaluation. Informed Consent: The patient's anesthetic plan and its attendant risks and benefits were discussed with the patient/family/POA. Questions were solicited and answers provided to the satisfaction of the patient/family/POA.
--- NOTE | 2024-10-27 14:36 | SUR.PREOP ---
ATTEMPTS MADE X3 TO OBTAIN ECHO REPORT FROM [facility]; VOICEMAIL REACHED X3; NO MESSAGE LEFT. PT TO EMERGENT SURGERY. DR. LEWIS AWARE OF ABOVE.
--- NOTE | 2024-10-27 14:49 | SUR.PREOP ---
ATTEMPTS MADE AGAIN TO OBTAIN CARDIAC RECORDS FROM [facility] [place]; NO RECORDS ON FILE AT EITHER FACILITY. PT SOMNOLENT AND POOR HISTORIAN.
--- NOTE | 2024-10-27 15:46 | WPDANESACPN ---
Arterial Cath Proc Note Consent: I have discussed with the patient/family/POA, the non-emergent placement of an arterial catheter, including its clinical necessity/indication and associated potential risks and complications. The patient/family/POA and/or understand(s) and acknowledge(s) the need to proceed with the arterial catheter insertion as an important element of the patient's clinical management. Given emergent patient conditions, temporal constraints may have precluded informed consent. Time-Out: A pre-procedural Time-Out was completed immediately before starting the procedure and confirmed: Patient Identification, Site, Procedure, Patient Position and the Availability of Requisite Equipment. Procedure Note Patient position: supine Insertion site: right radial Method of insertion: surface landmarks Forest Examiner prep: sterile gloves, mask and hat Site prep: chlorahexadine Skin anesthesia: general anesthesia Gauge: 20 gauge Length (cm): 4.4 cm Closure/Dressing: tegaderm Complications: None immediately noted/suspected.
[2024-10-27 15:53] LABS: Alveolar/Arterial O2 Gradient 293.4 mmHg; Base Excess ABG -0.9 mEq/l (+/-2.0); Fractional Inspired Oxygen 100 %; Oxygen Content ABG 22.2 %vol (16.0-22.0); Oxygen Saturation ABG 99.7 % (95.0-100.0); Oxyhemoglobin 98.2 % THb (90.0-100.0); PCO2 ABG 57.6 mmHg (35.0-45.0); PO2 FiO2 Ratio Arterial Blood 3.62 %; Total Hemoglobin 15.4 g/dL (12.0-18.0)
[2024-10-27 15:57] LABS: Device IN OR/PER ANESTHESIA; Site Drawn ARTLINE; pH ABG 7.289 (7.350-7.450)
--- NOTE | 2024-10-27 16:12 | P.PCNANE_ITS ---
Anes - Cent Venous Cath Note Consent: I have discussed with the patient/family/POA, the non-emergent placement of a central venous catheter, including its clinical necessity/indication and associated potential risks and complications. The patient/family/POA understand(s) and acknowledge(s) the need to proceed with central venous catheter insertion as an important element of the patient's clinical management given emergent patient conditions, temporal constraints may have precluded informed consent. Time-Out: A pre-procedural Time-Out was completed immediately before starting the procedure and confirmed: Patient Identification, Site, Procedure, Patient Position and the Availability of Requisite Equipment. Procedure Note Clinical Indications: hypotension volume depletion Patient position: trendelenburg Central venous catheter insertion site: right internal jugular CVC method of insertion: ultrasound-guided Hand hygiene/Aseptic technique: Hand hygiene procedures were performed. Aseptic technique was maintained throughout the procedure. Sterile barrier precautions: Maximal sterile barrier precautions, including use of a cap, mask, sterile gown, sterile gloves and a sterile full body drape. Site prep: chlorhexidine Skin anesthesia: placed under general anesthesia [place]: 7 Lumen: 3 Length (cm): 15 cm Depth of insertion (cm): 15 Closure/Dressing: suture, biopatch and tegaderm Complications: None immediately noted/suspected. Chest X Ray: Ordered/review to follow. Procedure comments: placed with use of u/s first wire would not feed through catheter. second wire no issues.
[2024-10-27 16:15] LABS: Alanine Aminotransferase 12 U/L (6-35); Albumin Level 2.9 g/dL (3.5-5.1); Alkaline Phosphatase 76 U/L (38-126); Anion Gap 4 mmol/L (4-12); Aspartate Amino Transferase 19 U/L (14-36); Bilirubin,Total 0.5 mg/dL (0.2-1.3); Blood Urea Nitrogen 29 mg/dL (7-17); Calcium 7.6 mg/dL (8.4-10.2); Carbon Dioxide 27 mmol/L (22-30); Chloride 108 mmol/L (98-107); Estimated CRCL calculation 46 ml/min; Estimated Glomerular Filt Rate 35; Glucose 156 mg/dL (65-110); Magnesium 1.7 mg/dL (1.6-2.3); Potassium 5.2 mmol/L (3.4-5.0); Sodium 139 mmol/L (137-145)
--- NOTE | 2024-10-27 16:22 | W.PM.PROC2 ---
Procedure Note - Detailed Date of Procedure 10/27/24 Pre-op Diagnosis Closed loop small bowel obstruction, ischemic small bowel, sepsis Post-op Diagnosis Same Procedure Performed Exploratory laparotomy, lysis of adhesions, detorsion of closed loop small bowel obstruction Surgeon Gavitoa Morales MD Anesthesia General Indications 68-year-old female presenting with closed loop small bowel obstruction, sepsis Findings Closed loop small bowel obstruction in the mid jejunum, ischemic changes within the loop of small bowel Description of Procedure The patient was taken to the operating room and placed in the supine position. After adequate induction of general anesthesia, the patient was prepped and draped in the normal sterile fashion. A time-out was then done verify the patient's identity, as well as the procedure being performed. I began by making a generous midline incision. This was taken down into the peritoneal cavity. Upon entering the peritoneal cavity, a large amount of ascites was noted. The small bowel was noted to be very dilated. And upon examining the small intestine, there was noted to be a area that was stuck down by a band. This band was lysed with the LigaSure device. I was then able to bring out a piece of mid jejunum that was very ischemic appearing. The distal aspect of this area was examined and there was another band that was lysed. This loop of small intestine looked to be torsed upon itself and the mesentery. I manually de torsed this area once the bands were lysed and immediately noted some viability of this small bowel. Once this entirely was able to be examined this was noted to be quite ischemic. I then ran the entirety of the small bowel, noting no other pathology. With continued observation, the loop of mid jejunum that was involved in the closed loop obstruction became quite pink and viable. There was a bit hyperemia and inflammation, however the ischemic changes reverse quite quickly. I also examined the colon which was noted to be unremarkable. Given these findings, and the fact that the patient was hemodynamically stable and requiring no vasopressors, the decision was made to replace this small intestine back in the abdominal cavity without resection. I then closed the abdomen with looped 0 PDS sutures at fascial level x2. The skin was closed skin walter. The patient tolerated procedure and will be transferred to the intensive care unit in critical condition. Estimated Blood Loss 50 Pathology None sent Complications No immediate complications Condition Critical Disposition ICU [facility] Billing Surgery - Charge Forward: Surgery Billing
[2024-10-27] MEDS: LACTATED RINGERS 1,000 ML 125 ML IV CONT (16:50)
[2024-10-27] MEDS: PROPOFOL IV EMULSION 100 ML 4.54 MG IV CONT (16:50)
[2024-10-27] MEDS: FENTANYL 2,500MCG/NS250ML(*CRX 2,500 MCG/250 ML BAG IV CONT (16:55)
[2024-10-27 17:29] LABS: Triglycerides 126 mg/dL (<150)
[2024-10-27] MEDS: PIPERACILLN/TAZ 3.375GM/NS50ML 3.375 GM/50 ML BAG IVPB ×2 (17:35→23:38)
[2024-10-27 17:40] LABS: Glucose Point of Care 128 mg/dl (65-105)
[2024-10-27 17:45] LABS: Alveolar/Arterial O2 Gradient 203.1 mmHg; Base Excess ABG -1.8 mEq/l (+/-2.0); Fractional Inspired Oxygen 50 %; HCO3 ABG 27.3 mEq/l (22.0-26.0); Oxygen Content ABG 20.1 %vol (16.0-22.0); Oxygen Saturation ABG 93.3 % (95.0-100.0); Oxyhemoglobin 94.4 % THb (90.0-100.0); PO2 ABG 79.6 mmHg (80.0-100.0); PO2 FiO2 Ratio Arterial Blood 1.59 %; Total Hemoglobin 15.1 g/dL (12.0-18.0)
[2024-10-27 17:47] LABS: pH ABG 7.237 (7.350-7.450)
[2024-10-27 17:48] LABS: Device VENTILATOR; PCO2 ABG 65.6 mmHg (35.0-45.0); Site Drawn ARTLINE
[2024-10-27 17:50] LABS: Arterial Blood Gas Ventilator rate 20 /MIN
[2024-10-27 17:51] LABS: Arterial Blood Gas PEEP 8 cmH2O; Arterial Blood Gas Tidal Volume 400 ml; Arterial Blood Gas Vent Mode CMV
--- NOTE | 2024-10-27 18:37 | PC.NURSE ---
This patient, June Petty, was received from OR(formerly room 260) on 10/27/24 at 1630. Patient intubated. Family updated.
[2024-10-27 19:35] LABS: MRSA (PCR) NOT DETECTED (NOT DETECTE)
[2024-10-27] MEDS: MINERAL OIL/WHITE PETROLATUM OINTMENT 1 APPLIC EACH EYE (20:24)
[2024-10-27] MEDS: PROPOFOL IV EMULSION 100 ML 18.14 MG IV CONT (21:50)
[2024-10-28] VITALS (38 sets, daily range): BP systolic 101–133; BP diastolic 56–68; PULSE 84–107; RESP 21–29; TEMP 36.2–37.2; O2SAT 95–100
--- NOTE | 2024-10-28 | ECHO_ITS ---
Patient Info Name: June Petty Age: 68 years : 1955 Gender: Female Ht: 62 in Wt: 350 lbs BSA: 2.75 m2 HR: 106 bpm BP: 151 / 74 mmHg Heart Rhythm: Sinus Rhythm Technical Quality: Fair Exam Date: 10/28/2024 2:09 PM Exam Location: Echo Lab Patient Status: Inpatient Admit Date: 10/27/2024 Staff Ordering Physician: Wilmer Hemphill MD Quality Assurance Auditor: Becky Jarvis RDCS Attending Provider: Lolis Boles APRN Exam Type: CA echo doppler color flow Study Info Complete two-dimensional, color flow and Doppler transthoracic echocardiogram is performed. Summary 1. Complete two-dimensional, color flow and Doppler transthoracic echocardiogram is performed. 2. Left ventricle is normal size and systolic function. There is concentric left ventricular remodeling. The left ventricular ejection fraction is visually estimated to be 60-65%. 3. The right ventricle is normal in size and systolic function. 4. There is no significant valvular disease. Left Ventricle Left ventricle is normal size and systolic function. There is concentric left ventricular remodeling. The left ventricular ejection fraction is visually estimated to be 60-65%. Right Ventricle The right ventricle is normal in size and systolic function. Left Atria The left atrium is normal size. Right Atria The right atrium is normal size. Atrial Septum Atrial septum is not well visualized. Aortic Valve The aortic valve is trileaflet and sclerotic but opens well. There is no aortic regurgitation. Pulmonic Valve The pulmonic valve is not well visualized. There is no color Doppler evidence of pulmonic valve regurgitation. Mitral Valve Mitral valve is grossly normal. There is no mitral regurgitation. Tricuspid Valve Tricuspid valve is grossly normal. There is trivial tricuspid regurgitation. Pericardium/Pleural There is no pericardial effusion in the available views. Inferior Vena Cava Inferior vena cava is not well visualized. Aorta The aortic root at the level of the sinus of Valsalva measures 2.8 cm in diameter. Left Ventricular Outflow Tract Name Value Normal LVOT 2D LVOT Diameter 2.0 cm LVOT Doppler LVOT Peak Gradient 20 mmHg LVOT Mean Gradient 11 mmHg LVOT VTI 42 cm LVOT VTI/AV VTI Ratio 0.7 LVOT Stroke Volume 129 ml LVOT CO 30.1 l/min LVOT CI 10.9 l/min/m2 Pulmonic Valve Name Value Normal PV Doppler PV Peak Gradient 8 mmHg Mitral Valve Name Value Normal MV Doppler MV Peak Gradient 6 mmHg MV Mean Gradient 2 mmHg MV Decel Campbell 371 cm/s2 MV PHT 69 ms MV Area (PHT) 3.2 cm2 4.0-5.0 MV Area (Cont Eq VTI) 5.1 cm2 MV Diastolic Function MV E Peak Velocity 89 cm/s MV A Peak Velocity 79 cm/s MV E/A 1.1 MV Decel Time 239 ms MV Annular TDI MV E/e' (Septal) 12.4 <=8.0 MV E/e' (Lateral) 8.6 <=8.0 MV E/e' (Average) 10.5 Aorta Name Value Normal Ascending Aorta Ao Root Diameter (2D) 2.8 cm Ao Root Diam Index (2D) 1.0 cm/m2 Aortic Valve Name Value Normal AV Doppler AV Peak Velocity 295 cm/s AV Peak Gradient 35 mmHg AV Mean Gradient 22 mmHg AV VTI 57 cm AV Area (Cont Eq VTI) 2.3 cm2 >=3.0 AV Area (Cont Eq Chang) 2.3 cm2 AV Regurgitation 2D LVOT Area 3.1 cm2 Ventricles Name Value Normal LV Dimensions 2D/MM IVS Diastolic Thickness (2D) 1.2 cm 0.6-1.0 LVID Diastole (2D) 4.6 cm 3.8-5.2 LVIW Diastolic Thickness (2D) 1.2 cm 0.6-0.9 LVID Systole (2D) 3.3 cm 2.2-3.5 LVOT Diameter 2.0 cm LV Mass (2D Cubed) 209.70 g 67.00-162.00 LV Mass Index (2D Cubed) 76 g/m2 43-95 Relative Wall Thickness (2D) 0.52 LV Fractional Shortening/Ejection Fraction 2D/MM LV Fractional Shortening (2D) 29 % 27-45 LV EF (2D Teicholz) 56 % 54-74 LV Diastolic Volume (4C MOD) 150 ml LV EF (4C MOD) 56 % LV Diastolic Length (4C) 9.0 cm LV Systolic Length (4C) 7.7 cm LV Stroke Volume (4C MOD) 84 ml Atria Name Value Normal LA Dimensions LA Volume (4C A-L) 48 ml Report Signatures
[2024-10-28 01:01] LABS: Glucose Point of Care 120 mg/dl (65-105)
[2024-10-28] MEDS: LACTATED RINGERS 1,000 ML 125 ML IV CONT (01:04)
[2024-10-28 01:08] LABS: Anion Gap 3 mmol/L (4-12); Blood Urea Nitrogen 38 mg/dL (7-17); Calcium 8.3 mg/dL (8.4-10.2); Carbon Dioxide 31 mmol/L (22-30); Chloride 107 mmol/L (98-107); Estimated CRCL calculation 37 ml/min; Estimated Glomerular Filt Rate 26; Glucose 133 mg/dL (65-110); Potassium 6.1 mmol/L (3.4-5.0); Sodium 141 mmol/L (137-145)
[2024-10-28] MEDS: DEXTROSE 50% 25 GM/50 ML SYRINGE IV PUSH (01:24)
[2024-10-28] MEDS: SODIUM ZIRCONIUM CYCLOSILICATE 10 GM POWD.PACK FEED TUBE (01:24)
[2024-10-28] MEDS: CALCIUM GLUC 1,000 MG/NS 50 ML 1,000 MG/50 ML BAG 100 MG IVPB (01:24)
[2024-10-28] MEDS: SODIUM BICARBONATE 8.4% 50 MEQ/50 ML SYRINGE IV PUSH (01:24)
[2024-10-28] MEDS: INSULIN HUMAN REGULAR (*BKC) 100 UNITS/ML 10 UNITS IV PUSH (01:24)
[2024-10-28] MEDS: PROPOFOL IV EMULSION 100 ML 13.61 MG IV CONT ×2 (02:55→09:46)
[2024-10-28 03:32] LABS: Basophils Absolute Auto 0.1 K/mm3 (0.0-0.1); Basophils Percent Auto 0.2 % (0.2-1.2); Hematocrit 45.5 % (37.0-47.0); Hemoglobin 13.6 g/dL (12.0-15.0); Immature Granulocyte Absolute 0.15 K/mm3 (0.00-0.031); Immature Granulocyte Percent A 0.6 % (0-0.5); Lymphocytes Absolute Auto 0.81 K/mm3 (0.9-3.2); Lymphocytes Percent Auto 3.2 % (18.3-44.2); Mean Corpuscular HGB Conc 29.9 g/dl (32-36); Mean Corpuscular Hemoglobin 27.8 pg (26-34); Mean Corpuscular Volume 92.9 fl (80-100); Mean Platelet Volume 9.2 fl (7.4-10.4); Monocytes Absolute Auto 1.6 K/mm3 (0.1-0.6); Monocytes Percent Auto 6.1 % (2.6-8.5); Neutrophils Absolute Auto 22.9 K/mm3 (1.3-6.7); Neutrophils Percent Auto 89.9 % (45.5-73.1); Platelet Count Result 272 k/mm3 (150-375); Red Cell Distribution Width 17.4 % (11.5-14.5); White Blood Count 25.5 K/mm3 (4.5-10.0)
[2024-10-28 03:43] LABS: Alanine Aminotransferase 13 U/L (6-35); Albumin Level 2.8 g/dL (3.5-5.1); Alkaline Phosphatase 71 U/L (38-126); Anion Gap 0 mmol/L (4-12); Aspartate Amino Transferase 18 U/L (14-36); Bilirubin,Total 0.4 mg/dL (0.2-1.3); Blood Urea Nitrogen 42 mg/dL (7-17); Calcium 7.9 mg/dL (8.4-10.2); Carbon Dioxide 32 mmol/L (22-30); Chloride 108 mmol/L (98-107); Estimated CRCL calculation 35 ml/min; Estimated Glomerular Filt Rate 25; Glucose 154 mg/dL (65-110); Magnesium 1.8 mg/dL (1.6-2.3); Sodium 140 mmol/L (137-145)
[2024-10-28 04:46] LABS: Base Excess ABG 1.4 mEq/l (+/-2.0); Fractional Inspired Oxygen 50 %; HCO3 ABG 30.3 mEq/l (22.0-26.0); Oxygen Content ABG 19.5 %vol (16.0-22.0); Oxygen Saturation ABG 96.2 % (95.0-100.0); Oxyhemoglobin 96.5 % THb (90.0-100.0); PO2 ABG 96.7 mmHg (80.0-100.0); PO2 FiO2 Ratio Arterial Blood 1.93 %; Total Hemoglobin 14.3 g/dL (12.0-18.0)
[2024-10-28 04:49] LABS: pH ABG 7.265 (7.350-7.450)
[2024-10-28 04:50] LABS: PCO2 ABG 68.3 mmHg (35.0-45.0); Site Drawn ARTLINE
[2024-10-28 04:51] LABS: Arterial Blood Gas Ventilator rate 24 /MIN; Device VENTILATOR; Modified Allen's Test Pass
[2024-10-28 04:52] LABS: Arterial Blood Gas PEEP 8 cmH2O; Arterial Blood Gas Tidal Volume 400 ml; Arterial Blood Gas Vent Mode CMV
[2024-10-28] MEDS: PIPERACILLN/TAZ 3.375GM/NS50ML 3.375 GM/50 ML BAG IVPB ×3 (06:26→17:01)
[2024-10-28 06:41] LABS: Glucose Point of Care 113 mg/dl (65-105)
[2024-10-28] MEDS: ENOXAPARIN 40 MG/0.4 ML SYRINGE SUB-Q (09:03)
[2024-10-28] MEDS: SODIUM CHLORIDE 0.45% 1,000 ML 100 ML IV CONT ×2 (09:03→21:51)
[2024-10-28] MEDS: PANTOPRAZOLE SODIUM IV 40 MG VIAL IV PUSH (09:03)
[2024-10-28] MEDS: MINERAL OIL/WHITE PETROLATUM OINTMENT 1 APPLIC EACH EYE ×2 (09:04→20:25)
[2024-10-28] MEDS: EUCERIN CREAM 120 GM JAR 1 APPLIC TOPICAL (09:04)
[2024-10-28] MEDS: ALBUMIN HUMAN 25% 25 GM/100 ML 100 ML IVPB ×3 (09:04→20:25)
[2024-10-28] MEDS: CALCIUM GLUC 2,000 MG/NS 100ML 2,000 MG/100 ML BAG 100 MG IVPB (09:09)
--- NOTE | 2024-10-28 09:26 | WPDCNINT ---
Assessment and Plan Assessment and plan (1) Small bowel obstruction: Code(s): K56.609 - Unspecified intestinal obstruction, unspecified as to partial versus complete obstruction Status: Acute Assessment and Plan: Status post Exploratory laparotomy, lysis of adhesions, detorsion of closed loop small bowel obstruction npo feeding and management of wound as per General surgery (2) Hypothyroidism: Code(s): E03.9 - Hypothyroidism, unspecified Status: Acute Assessment and Plan: Resume levothyroxine. Will switch to IV at this time (3) Enteritis: Code(s): K52.9 - Noninfective gastroenteritis and colitis, unspecified Status: Acute Assessment and Plan: Continue Zosyn (4) Acute UTI: Code(s): N39.0 - Urinary tract infection, site not specified Status: Acute Assessment and Plan: UA suggestive of UTI. Urine and blood cultures pending Currently on Zosyn (5) Acute respiratory failure: Code(s): J96.00 - Acute respiratory failure, unspecified whether with hypoxia or hypercapnia Status: Acute Assessment and Plan: Acute Respiratory failure secondary to general anaesthesia cephalopathy and small-bowel obstruction Continue full mechanical ventilation support to prevent hypoxemia/hypercarbia and end organ damage. ABG reviewed and shows hypoxia respiratory acidosis Increase tidal volume to 450. Wean FiO2 down. Peep is currently at 8 Check chest x-ray Will attempt SBT when ready to wean. Bronchodilators (6) VEE (acute kidney injury): Code(s): N17.9 - Acute kidney failure, unspecified Status: Acute Assessment and Plan: Patient has developed postop VEE which could be secondary to fluid shifting, as sepsis, hypovolemia Patient received high PEEP fluid bolus in OR. She also has significant amount of ascites as per the surgeon which was drained out. Patient does have overall volume overload as evidenced by lower extremity edema and chronic venous stasis which she is likely third-spacing I will continue IV fluids at this time Add 25% albumin Her blood pressure has been adequate and she has not required any vasopressors and will be monitor Check CK level and urine electrolytes CT scan was negative for any obstruction or stone Monitor urine output electrolytes and creatinine If renal function does not improve or deteriorates will consult nephrology Plan DVT prophylaxis -Lovenox Stress ulcer prophylaxis -PPI Nutrition - npo Code Status - Full Code Total Critical Care Time - 40 minutes Due to a high probability of clinically significant, life threatening deterioration, the patient required my highest level of preparedness to intervene emergently and I personally spent this critical care time directly and personally managing the patient. This critical care time included obtaining a history; examining the patient; pulse oximetry; ordering and review of studies; arranging urgent treatment with development of a management plan; evaluation of patient's response to treatment; frequent reassessment; and discussions with other providers. It was exclusive of separately billable procedures and treating other patients and teaching time. Please see Assessment and Plan section and the rest of the note for further information on patient assessment and treatment [employer] Systems Consultant Consult Note Consult date: 10/28/24 Reason for consult: Acute respiratory failure, status post laparotomy, VEE HPI: June Petty is a 68 year old female with past medical history of morbid obesity, hypertension, hypothyroidism, neuropathy, iron deficiency anemia was admitted with nausea vomiting on 10/[address] abdomen pelvis at that time showed partial or early small-bowel obstruction versus possible enteritis. UA showed UTI. Patient was admitted to hospital and was started on antibiotics and general surgery and GI was consulted. Initially the plan was conservative management with NG tube decompression bowel rest and small-bowel follow-through. But her patient's symptoms worsened and patient was taken to the operating room yesterday afternoon. She underwent Exploratory laparotomy, lysis of adhesions, detorsion of closed loop small bowel obstruction. During the case a central venous catheter in art line was placed. She was given IV fluids Postop she was admitted to ICU. Patient was started on sedation for mechanical ventilation. IV fluids were continues. Her urine output has been poor. At this time patient is sedated intubated and provide any history. History was obtained from chart review and physician sign-out from anesthesia and General surgery Review of Systems Review of Systems: ROS unobtainable: Yes unobtainable due to endotracheal tube, unobtainable due to medical condition and unobtainable due to mental status PMF Past Medical History Medical History Cardiomyopathy Gout Hypertension Hypothyroidism Iron deficiency anemia Obesity Social History Social History Smoking status: Never smoker Alcohol intake: never Substance use: never Substance use type: does not use Do You Feel Safe in your Home?: Yes Lack of Transportation: No Lack of Food: Never True Current Housing: I Have Housing Concerned About Future Housing: No Difficulty Paying Gas/Electric Bills: No Difficulty Paying for Meds: No Currently Unemployed: No Education: High School Diploma/GED Difficulty w/ Childcare or Family Care: No Spiritual care concerns: No Meds Home Medications and Allergies Home Medications Medication Instructions Recorded Confirmed Type allopurinol 100 mg tablet 100 mg PO DAILY 10/27/24 10/27/24 History amlodipine 5 mg tablet 5 mg PO DAILY 10/27/24 10/27/24 History atorvastatin 20 mg tablet 20 mg PO DAILY 10/27/24 10/27/24 History ferrous sulfate 325 mg (65 mg 325 mg PO DAILY 10/27/24 10/27/24 History iron) tablet furosemide 40 mg tablet 40 mg PO DAILY 10/27/24 10/27/24 History gabapentin 300 mg capsule 300 mg PO TID 10/27/24 10/27/24 History levothyroxine 137 mcg tablet 137 mcg PO DAILY 10/27/24 10/27/24 History montelukast 10 mg tablet 10 mg PO HS 10/27/24 10/27/24 History Allergies Allergy/AdvReac Type Severity Reaction Status Date / Time No Known Allergies Allergy Verified 10/27/24 14:25 Vital Signs Vital Signs - 24 hr 10/27/24 14:00 10/27/24 16:40 10/27/24 16:45 Temperature 37.4 C Pulse Rate 104 H 90 Respiratory Rate 18 15 Blood Pressure 148/82 H 156/86 H Pulse Oximetry 97 100 Oxygen Delivery Room Air Fraction of Inspired Oxygen 50 10/27/24 16:45 10/27/24 16:50 10/27/24 16:55 Temperature Pulse Rate 95 88 85 Respiratory Rate 26 H 29 H Blood Pressure Pulse Oximetry 100 Oxygen Delivery Mechanical Ventilation Fraction of Inspired Oxygen 50 10/27/24 18:00 10/27/24 17:30 10/27/24 17:00 Temperature Pulse Rate 85 92 Respiratory Rate 19 Blood Pressure Pulse Oximetry 97 Oxygen Delivery Mechanical Ventilation Fraction of Inspired Oxygen 50 10/27/24 17:10 10/27/24 17:20 10/27/24 17:25 Temperature Pulse Rate 91 86 86 Respiratory Rate 23 H 17 17 Blood Pressure Pulse Oximetry Oxygen Delivery Fraction of Inspired Oxygen 10/27/24 17:10 10/27/24 18:00 10/27/24 18:30 Temperature Pulse Rate 91 84 85 Respiratory Rate 23 H 20 24 H Blood Pressure Pulse Oximetry Oxygen Delivery Fraction of Inspired Oxygen 10/27/24 18:30 10/27/24 18:31 10/27/24 20:28 Temperature Pulse Rate 85 86 82 Respiratory Rate 20 Blood Pressure Pulse Oximetry 98 98 Oxygen Delivery Mechanical Ventilation Mechanical Ventilation Fraction of Inspired Oxygen 50 50 10/27/24 21:50 10/27/24 21:50 10/27/24 20:00 Temperature Pulse Rate 82 82 Respiratory Rate 24 H 24 H Blood Pressure Pulse Oximetry Oxygen Delivery Mechanical Ventilation Fraction of Inspired Oxygen 50 10/27/24 20:00 10/27/24 20:00 10/27/24 20:00 Temperature 36.3 C L Pulse Rate 83 82 Respiratory Rate 24 H Blood Pressure 145/69 H Pulse Oximetry 98 Oxygen Delivery Fraction of Inspired Oxygen 50 10/27/24 20:00 10/27/24 20:00 10/27/24 22:37 Temperature Pulse Rate 83 83 80 Respiratory Rate 24 H 24 H Blood Pressure Pulse Oximetry 99 Oxygen Delivery Mechanical Ventilation Fraction of Inspired Oxygen 50 10/27/24 22:00 10/27/24 22:00 10/27/24 22:00 Temperature Pulse Rate 84 84 84 Respiratory Rate 24 H 24 H 24 H Blood Pressure 137/68 Pulse Oximetry 98 Oxygen Delivery Fraction of Inspired Oxygen 10/27/24 23:43 10/28/24 00:00 10/28/24 00:15 Temperature 36.3 C L Pulse Rate 86 88 Respiratory Rate 24 H 24 H Blood Pressure Pulse Oximetry Oxygen Delivery Fraction of Inspired Oxygen 10/28/24 00:00 10/28/24 00:00 10/28/24 01:30 Temperature Pulse Rate 86 86 84 Respiratory Rate 24 H 24 H 29 H Blood Pressure 116/67 Pulse Oximetry 95 Oxygen Delivery Fraction of Inspired Oxygen 10/28/24 01:35 10/28/24 00:00 10/28/24 00:00 Temperature Pulse Rate 86 Respiratory Rate 26 H Blood Pressure Pulse Oximetry Oxygen Delivery Mechanical Ventilation Fraction of Inspired Oxygen 50 50 10/28/24 00:00 10/28/24 02:15 10/28/24 02:00 Temperature Pulse Rate 85 91 93 Respiratory Rate 24 H Blood Pressure Pulse Oximetry 95 Oxygen Delivery Mechanical Ventilation Fraction of Inspired Oxygen 50 10/28/24 02:00 10/28/24 02:55 10/28/24 02:55 Temperature Pulse Rate 93 87 87 Respiratory Rate 24 H 24 H 24 H Blood Pressure Pulse Oximetry Oxygen Delivery Fraction of Inspired Oxygen 10/28/24 02:00 10/28/24 04:41 10/28/24 04:00 Temperature Pulse Rate 93 87 Respiratory Rate 24 H Blood Pressure 133/62 Pulse Oximetry 98 98 Oxygen Delivery Mechanical Ventilation Mechanical Ventilation Fraction of Inspired Oxygen 50 50 10/28/24 04:00 10/28/24 06:00 10/28/24 04:00 Temperature Pulse Rate 89 86 89 Respiratory Rate 24 H 24 H 24 H Blood Pressure Pulse Oximetry Oxygen Delivery Fraction of Inspired Oxygen 10/28/24 06:00 10/28/24 06:40 10/28/24 04:00 Temperature 36.2 C L Pulse Rate 86 101 H 94 Respiratory Rate 24 H 24 H 24 H Blood Pressure 112/63 Pulse Oximetry 96 Oxygen Delivery Fraction of Inspired Oxygen 10/28/24 04:00 10/28/24 04:00 10/28/24 06:00 Temperature Pulse Rate 97 86 Respiratory Rate 24 H Blood Pressure 108/56 L Pulse Oximetry 98 Oxygen Delivery Fraction of Inspired Oxygen 50 10/28/24 08:47 10/28/24 08:49 Temperature Pulse Rate 92 Respiratory Rate Blood Pressure Pulse Oximetry 98 98 Oxygen Delivery Mechanical Ventilation Mechanical Ventilation Fraction of Inspired Oxygen 50 50 Exam Narrative: General: Pt is sedated, intubated and on mechanical ventilation Lungs/Chest: Trachea central Coarse BS B/L, No crackles or wheezing. Cardiac: RRR. Normal S1 S2. No murmurs Circulation: Feet are warm Abdomen: Absent bowel sounds. Morbidly Obese. Soft. NT. ND. Incision in the midline covered with dressing Extremities: Bilateral edema and chronic venous stasis changes with dry flaky skin : Ann in place Neurologic: Sedated Moves all 4 extremities to painful stimuli. PERRL Results Labs 10/28/24 03:21 10/28/24 03:21 Labs: Impressions Abdomen X-Ray 10/27/24 12:56 IMPRESSION: 1. Closed-loop small bowel obstruction. ADDENDUM: 10/27/24 1310 I discussed this result with Marian Taylor. Small Bowel X-Ray 10/27/24 13:04 IMPRESSION: 1. Closed-loop small bowel obstruction. ADDENDUM: 10/27/24 1317 I called this result to Dr. Morales. Chest X-Ray 10/27/24 17:06 IMPRESSION: Bilateral pneumonia. Underlying pulmonary edema is not excluded. Abdomen X-Ray 10/27/24 17:09 IMPRESSION: NO ACUTE ABDOMINAL FINDINGS. Possible stones in the right kidney. Short CBC 10/27/24 10/28/24 Range/Units 08:51 03:21 WBC 21.9 H 25.5 H (4.5-10.0) K/mm3 Hgb 16.0 H 13.6 (12.0-15.0) g/dL Hct 53.6 H 45.5 (37.0-47.0) % Plt Count 350 272 (150-375) k/mm3 BMP 10/27/24 10/28/24 10/28/24 15:33 00:51 03:21 Sodium 139 141 140 Potassium 5.2 H 6.1 H* 5.0 Chloride 108 H 107 108 H Carbon Dioxide 27 31 H 32 H BUN 29 H 38 H 42 H Creatinine 1.50 H 1.90 H 2.00 H Glucose 156 H 133 H 154 H Calcium 7.6 L 8.3 L 7.9 L Liver Function 10/27/24 10/28/24 Range/Units 15:33 03:21 Total Bilirubin 0.5 0.4 (0.2-1.3) mg/dL AST 19 18 (14-36) U/L ALT 12 13 (6-35) U/L Alkaline Phosphatase 76 71 (38-126) U/L Albumin 2.9 L 2.8 L (3.5-5.1) g/dL ECG Interpretation: Sinus tachycardia with possible inferior myocardial infarction which is old as there is a Q-wave Hospitalist MIPS Advance Care Plan I have confirmed that the patient's Advanced Care Plan is present, code status is documented, or surrogate decision maker is listed in patient medical record.: Yes Medication Reconciliation I have utilized all available resources to obtain, update and review the patients current medications (includes all prescriptions, OTC, herbals, cannabis, and nutritional supplements).: Yes
--- NOTE | 2024-10-28 09:40 | P.PNGS_ITS ---
Progress Note: A&P Assessment and Plan (1) Small bowel obstruction: Code(s): K56.609 - Unspecified intestinal obstruction, unspecified as to partial versus complete obstruction Status: Acute Assessment and Plan: s/p ex lap and detorsion, cont NG decompression for now, abx (2) Acute respiratory failure: Code(s): J96.00 - Acute respiratory failure, unspecified whether with hypoxia or hypercapnia Status: Acute Assessment and Plan: wean vent per executive assistant to general counsel team (3) VEE (acute kidney injury): Code(s): N17.9 - Acute kidney failure, unspecified Status: Acute Assessment and Plan: cont to follow closely, mgmt per executive assistant to general counsel team Subjective Subjective Date/Time Seen: 10/28/24 09:40 Interval history: no acute issues overnight, still intubated, sedated, third spacing quite a bit of fluid Review of Systems Review of Systems: ROS unobtainable: Yes unobtainable due to endotracheal tube Exam Const: Other: intubated, sedated Resp: Auscultation: diminished lung sounds Cardio: Rate: regular rate Rhythm: regular rhythm GI: Inspection: Abdominal wall edema, distended and incision GI Palp: Yes abdominal tenderness and Yes Soft to palpation Objective Data Vital Signs Vital Signs: Vital Signs - 24 hr 10/27/24 14:00 10/27/24 16:40 10/27/24 16:45 Temperature 37.4 C Pulse Rate 104 H 90 Respiratory Rate 18 15 Blood Pressure 148/82 H 156/86 H Pulse Oximetry 97 100 Oxygen Delivery Room Air Fraction of Inspired Oxygen 50 10/27/24 16:45 10/27/24 16:50 10/27/24 16:55 Temperature Pulse Rate 95 88 85 Respiratory Rate 26 H 29 H Blood Pressure Pulse Oximetry 100 Oxygen Delivery Mechanical Ventilation Fraction of Inspired Oxygen 50 10/27/24 18:00 10/27/24 17:30 10/27/24 17:00 Temperature Pulse Rate 85 92 Respiratory Rate 19 Blood Pressure Pulse Oximetry 97 Oxygen Delivery Mechanical Ventilation Fraction of Inspired Oxygen 50 10/27/24 17:10 10/27/24 17:20 10/27/24 17:25 Temperature Pulse Rate 91 86 86 Respiratory Rate 23 H 17 17 Blood Pressure Pulse Oximetry Oxygen Delivery Fraction of Inspired Oxygen 10/27/24 17:10 10/27/24 18:00 10/27/24 18:30 Temperature Pulse Rate 91 84 85 Respiratory Rate 23 H 20 24 H Blood Pressure Pulse Oximetry Oxygen Delivery Fraction of Inspired Oxygen 10/27/24 18:30 10/27/24 18:31 10/27/24 20:28 Temperature Pulse Rate 85 86 82 Respiratory Rate 20 Blood Pressure Pulse Oximetry 98 98 Oxygen Delivery Mechanical Ventilation Mechanical Ventilation Fraction of Inspired Oxygen 50 50 10/27/24 21:50 10/27/24 21:50 10/27/24 20:00 Temperature Pulse Rate 82 82 Respiratory Rate 24 H 24 H Blood Pressure Pulse Oximetry Oxygen Delivery Mechanical Ventilation Fraction of Inspired Oxygen 50 10/27/24 20:00 10/27/24 20:00 10/27/24 20:00 Temperature 36.3 C L Pulse Rate 83 82 Respiratory Rate 24 H Blood Pressure 145/69 H Pulse Oximetry 98 Oxygen Delivery Fraction of Inspired Oxygen 50 10/27/24 20:00 10/27/24 20:00 10/27/24 22:37 Temperature Pulse Rate 83 83 80 Respiratory Rate 24 H 24 H Blood Pressure Pulse Oximetry 99 Oxygen Delivery Mechanical Ventilation Fraction of Inspired Oxygen 50 10/27/24 22:00 10/27/24 22:00 10/27/24 22:00 Temperature Pulse Rate 84 84 84 Respiratory Rate 24 H 24 H 24 H Blood Pressure 137/68 Pulse Oximetry 98 Oxygen Delivery Fraction of Inspired Oxygen 10/27/24 23:43 10/28/24 00:00 10/28/24 00:15 Temperature 36.3 C L Pulse Rate 86 88 Respiratory Rate 24 H 24 H Blood Pressure Pulse Oximetry Oxygen Delivery Fraction of Inspired Oxygen 10/28/24 00:00 10/28/24 00:00 10/28/24 01:30 Temperature Pulse Rate 86 86 84 Respiratory Rate 24 H 24 H 29 H Blood Pressure 116/67 Pulse Oximetry 95 Oxygen Delivery Fraction of Inspired Oxygen 10/28/24 01:35 10/28/24 00:00 10/28/24 00:00 Temperature Pulse Rate 86 Respiratory Rate 26 H Blood Pressure Pulse Oximetry Oxygen Delivery Mechanical Ventilation Fraction of Inspired Oxygen 50 50 10/28/24 00:00 10/28/24 02:15 10/28/24 02:00 Temperature Pulse Rate 85 91 93 Respiratory Rate 24 H Blood Pressure Pulse Oximetry 95 Oxygen Delivery Mechanical Ventilation Fraction of Inspired Oxygen 50 10/28/24 02:00 10/28/24 02:55 10/28/24 02:55 Temperature Pulse Rate 93 87 87 Respiratory Rate 24 H 24 H 24 H Blood Pressure Pulse Oximetry Oxygen Delivery Fraction of Inspired Oxygen 10/28/24 02:00 10/28/24 04:41 10/28/24 04:00 Temperature Pulse Rate 93 87 Respiratory Rate 24 H Blood Pressure 133/62 Pulse Oximetry 98 98 Oxygen Delivery Mechanical Ventilation Mechanical Ventilation Fraction of Inspired Oxygen 50 50 10/28/24 04:00 10/28/24 06:00 10/28/24 04:00 Temperature Pulse Rate 89 86 89 Respiratory Rate 24 H 24 H 24 H Blood Pressure Pulse Oximetry Oxygen Delivery Fraction of Inspired Oxygen 10/28/24 06:00 10/28/24 06:40 10/28/24 04:00 Temperature 36.2 C L Pulse Rate 86 101 H 94 Respiratory Rate 24 H 24 H 24 H Blood Pressure 112/63 Pulse Oximetry 96 Oxygen Delivery Fraction of Inspired Oxygen 10/28/24 04:00 10/28/24 04:00 10/28/24 06:00 Temperature Pulse Rate 97 86 Respiratory Rate 24 H Blood Pressure 108/56 L Pulse Oximetry 98 Oxygen Delivery Fraction of Inspired Oxygen 50 10/28/24 08:47 10/28/24 08:49 Temperature Pulse Rate 92 Respiratory Rate Blood Pressure Pulse Oximetry 98 98 Oxygen Delivery Mechanical Ventilation Mechanical Ventilation Fraction of Inspired Oxygen 50 50 Intake/Output Intake/Output: Intake & Output 10/25/24 10/26/24 10/27/24 10/28/24 23:59 23:59 23:59 23:59 Intake Total 1838.1 1316.0 Output Total 975 325 Balance 863.1 991.0 Meds/Results Medications: Active Medications Generic Name Dose Route Start Last Admin Trade Name Freq PRN Reason Stop Dose Admin Dextrose 12.5 gm 10/27/24 16:50 Dextrose 50% 25 Gm/50 Ml Syringe IV PUSH PRN PRN Hypoglycemia Protocol Enoxaparin Sodium 40 mg 10/28/24 09:00 10/28/24 09:03 Enoxaparin 40 Mg/0.4 Ml Syringe SUB-Q 40 mg DAILY YFN Administration Glucagon 1 mg 10/27/24 16:50 Glucagon For Inj 1 Mg Vial IM PRN PRN Hypoglycemia Protocol Glucose 15 gm 10/27/24 16:50 Glucose Oral Gel 15 Gm Of Glucse In 37.5 Gm Tube PO PRN PRN Hypoglycemia Protocol Hydromorphone HCl 0.5 mg 10/27/24 03:39 10/27/24 08:14 Hydromorphone Hcl Inj (*Crx) 1 Mg/Ml Syr IV PUSH 0.5 mg Q4H PRN Administration Pain Rated 7-10 Fentanyl Citrate 2,500 mcg in 250 mls @ 5 mls/hr 10/27/24 16:50 10/28/24 06:00 Fentanyl 2,500 Mcg/Ns 250 Ml IV CONT 50 mcg/hr .Q50H YFN 5 mls/hr Titration Protocol 50 MCG/HR Propofol 100 mls @ 13.608 mls/hr 10/27/24 16:50 10/28/24 06:40 Diprivan IV CONT 15 mcg/kg/min .Q7H21M YFN 13.61 mls/hr Titration Protocol 15 MCG/KG/MIN Dextrose 1,000 mls @ 100 mls/hr 10/27/24 16:50 Dextrose 5% 1,000 Ml IVPB PRN PRN Hypoglycemia Protocol Piperacillin/Tazobactam/Dextrose 3.375 gm in 50 mls @ 100 mls/hr 10/27/24 18:00 10/28/24 06:56 Zosyn 3.375 Gm/Ns 50 Ml IVPB Infused Q6H [facility] Infusion Albumin Human 100 mls @ 60 mls/hr 10/28/24 09:00 10/28/24 09:04 Albutein IVPB 60 mls/hr Q6H [facility] Administration Sodium Chloride 1,000 mls @ 100 mls/hr 10/28/24 08:45 10/28/24 09:03 Sodium Chloride 0.45% IV CONT 100 mls/hr .Q10H YFN Administration Insulin Aspart 3 - 6 units 10/27/24 18:00 10/28/24 06:32 Insulin Aspart (*Bkc) 100 Units/Ml SUB-Q Not Given Q6HR [facility] Protocol Levothyroxine Sodium 70 mcg 10/28/24 09:30 Levothyroxine Sodium Inj 100 Mcg/5 Ml Vial IV PUSH DAILY@0630 [facility] Multi-Ingred Cream/Lotion/Oil/Oint 1 applic 10/27/24 21:00 10/28/24 09:04 Mineral Oil/White Petrolatum Ointment EACH EYE 1 applic Q12HR YFN Administration Multi-Ingred Cream/Lotion/Oil/Oint 1 applic 10/28/24 09:00 10/28/24 09:04 Eucerin Cream 120 Gm Jar TOPICAL 1 applic DAILY YFN Administration Ondansetron HCl 4 mg 10/27/24 03:39 Ondansetron Inj 4 Mg/2 Ml Vial IV PUSH Q4H PRN Nausea Pantoprazole Sodium 40 mg 10/28/24 09:00 10/28/24 09:03 Pantoprazole Sodium Iv 40 Mg Vial IV PUSH 40 mg QAM YFN Administration Perflutren Lipid Microsphere 0 ml 10/28/24 09:27 Perflutren Lipid Microspheres 1.5 Ml Vial Diluted To 10 Ml Total Volume IV PUSH 10/31/24 09:27 ONCE PRN adequate visualization Protocol Sodium Chloride 10 ml 10/28/24 14:00 Central Line Flush IV PUSH Q8HR YFN Sodium Chloride 20 ml 10/28/24 07:52 Central Line Flush IV PUSH PRN PRN after blood draws Radiology Results: ITS Impressions Abdomen/Pelvis CT 10/27/24 05:48 Impression: Multiple mildly distended small bowel is within central mesenteric haziness/inflammatory change. Correlate for early/partial small bowel obstruc tion versus possibly enteritis and reactive ileus. Cholelithiasis. Small Bowel X-Ray 10/27/24 13:04 IMPRESSION: 1. Closed-loop small bowel obstruction. ADDENDUM: 10/27/24 [id number] I called this result to Dr. Morales. Chest X-Ray 10/27/24 17:06 IMPRESSION: Bilateral pneumonia. Underlying pulmonary edema is not excluded. Abdomen X-Ray 10/27/24 17:09 IMPRESSION: NO ACUTE ABDOMINAL FINDINGS. Possible stones in the right kidney. Labs Labs: Laboratory Results - last 24 hr 10/27/24 10/27/24 10/27/24 14:02 15:33 17:38 WBC RBC Hgb Hct MCV MCH MCHC RDW Plt Count MPV Immature Gran % (Auto) Neut % (Auto) Lymph % (Auto) [place] % (Auto) Eos % (Auto) Baso % (Auto) Lymph # (Auto) [place] # (Auto) Eos # (Auto) Baso # (Auto) Abs Immat Gran (auto) Absolute Neuts (auto) Absolute Nucleated RBC Nucleated RBC % Puncture Site Artline ABG pH 7.289 L* ABG pCO2 57.6 H ABG pO2 362.0 H ABG PO2/FiO2 Ratio 3.62 ABG HCO3 27.0 H ABG O2 Saturation 99.7 ABG O2 Content 22.2 H ABG Base Excess -0.9 A-a Gradient 293.4 Oxyhemoglobin 98.2 Total Hemoglobin 15.4 O2 Delivery Device In or/per anesthesia O2 Liters/Min Not Reportable Minute Volume Vent Rate Vent Mode FiO2 100 Tidal Volume PEEP Peak Inspir Pressure Pressure Support Sodium 139 Potassium 5.2 H Chloride 108 H Carbon Dioxide 27 Anion Gap 4 BUN 29 H Creatinine 1.50 H Estim Creat Clear Calc 46 Estimated GFR 35 L Glucose 156 H POC Capillary Glucose 128 H Calcium 7.6 L Magnesium 1.7 Total Bilirubin 0.5 AST 19 ALT 12 Alkaline Phosphatase 76 Total Protein 6.0 L Albumin 2.9 L Triglycerides 126 Nasal MRSA (PCR) Blood Type O Positive Antibody Screen Negative 10/27/24 10/27/24 10/27/24 17:39 18:09 23:36 WBC RBC Hgb Hct MCV MCH MCHC RDW Plt Count MPV Immature Gran % (Auto) Neut % (Auto) Lymph % (Auto) [place] % (Auto) Eos % (Auto) Baso % (Auto) Lymph # (Auto) [place] # (Auto) Eos # (Auto) Baso # (Auto) Abs Immat Gran (auto) Absolute Neuts (auto) Absolute Nucleated RBC Nucleated RBC % Puncture Site Artline ABG pH 7.237 L* ABG pCO2 65.6 H* ABG pO2 79.6 L ABG PO2/FiO2 Ratio 1.59 ABG HCO3 27.3 H ABG O2 Saturation 93.3 L ABG O2 Content 20.1 ABG Base Excess -1.8 A-a Gradient 203.1 Oxyhemoglobin 94.4 Total Hemoglobin 15.1 O2 Delivery Device Ventilator O2 Liters/Min Not Reportable Minute Volume Not Reportable Vent Rate 20 Vent Mode Cmv FiO2 50 Tidal Volume 400 PEEP 8 Peak Inspir Pressure Not Reportable Pressure Support Not Reportable Sodium Potassium Chloride Carbon Dioxide Anion Gap BUN Creatinine Estim Creat Clear Calc Estimated GFR Glucose POC Capillary Glucose 120 H Calcium Magnesium Total Bilirubin AST ALT Alkaline Phosphatase Total Protein Albumin Triglycerides Nasal MRSA (PCR) Not detected Blood Type Antibody Screen 10/28/24 10/28/24 10/28/24 00:51 03:21 04:39 WBC 25.5 H RBC 4.90 Hgb 13.6 Hct 45.5 MCV 92.9 MCH 27.8 MCHC 29.9 L RDW 17.4 H Plt Count 272 MPV 9.2 Immature Gran % (Auto) 0.6 H Neut % (Auto) 89.9 H Lymph % (Auto) 3.2 L [place] % (Auto) 6.1 Eos % (Auto) 0.0 Baso % (Auto) 0.2 Lymph # (Auto) 0.81 L [place] # (Auto) 1.6 H Eos # (Auto) 0.0 Baso # (Auto) 0.1 Abs Immat Gran (auto) 0.15 H Absolute Neuts (auto) 22.9 H Absolute Nucleated RBC 0.000 Nucleated RBC % 0.0 Puncture Site Artline ABG pH 7.265 L* ABG pCO2 68.3 H* ABG pO2 96.7 ABG PO2/FiO2 Ratio 1.93 ABG HCO3 30.3 H ABG O2 Saturation 96.2 ABG O2 Content 19.5 ABG Base Excess 1.4 A-a Gradient 183.0 Oxyhemoglobin 96.5 Total Hemoglobin 14.3 O2 Delivery Device Ventilator O2 Liters/Min Not Reportable Minute Volume Not Reportable Vent Rate 24 Vent Mode Cmv FiO2 50 Tidal Volume 400 PEEP 8 Peak Inspir Pressure Not Reportable Pressure Support Not Reportable Sodium 141 140 Potassium 6.1 H* 5.0 Chloride 107 108 H Carbon Dioxide 31 H 32 H Anion Gap 3 L 0 L BUN 38 H 42 H Creatinine 1.90 H 2.00 H Estim Creat Clear Calc 37 35 Estimated GFR 26 L 25 L Glucose 133 H 154 H POC Capillary Glucose Calcium 8.3 L 7.9 L Magnesium 1.8 Total Bilirubin 0.4 AST 18 ALT 13 Alkaline Phosphatase 71 Total Protein 5.0 L Albumin 2.8 L Triglycerides Nasal MRSA (PCR) Blood Type Antibody Screen 10/28/24 06:35 WBC RBC Hgb Hct MCV MCH MCHC RDW Plt Count MPV Immature Gran % (Auto) Neut % (Auto) Lymph % (Auto) [place] % (Auto) Eos % (Auto) Baso % (Auto) Lymph # (Auto) [place] # (Auto) Eos # (Auto) Baso # (Auto) Abs Immat Gran (auto) Absolute Neuts (auto) Absolute Nucleated RBC Nucleated RBC % Puncture Site ABG pH ABG pCO2 ABG pO2 ABG PO2/FiO2 Ratio ABG HCO3 ABG O2 Saturation ABG O2 Content ABG Base Excess A-a Gradient Oxyhemoglobin Total Hemoglobin O2 Delivery Device O2 Liters/Min Minute Volume Vent Rate Vent Mode FiO2 Tidal Volume PEEP Peak Inspir Pressure Pressure Support Sodium Potassium Chloride Carbon Dioxide Anion Gap BUN Creatinine Estim Creat Clear Calc Estimated GFR Glucose POC Capillary Glucose 113 H Calcium Magnesium Total Bilirubin AST ALT Alkaline Phosphatase Total Protein Albumin Triglycerides Nasal MRSA (PCR) Blood Type Antibody Screen
[2024-10-28] MEDS: LEVOTHYROXINE SODIUM INJ 100 MCG/5 ML VIAL 70 MCG IV PUSH (09:46)
[2024-10-28 10:07] LABS: Creatine Kinase 34 U/L (30-135)
[2024-10-28] MEDS: CENTRAL LINE FLUSH 10 ML IV PUSH ×2 (11:14→21:52)
[2024-10-28 11:19] LABS: Glucose Point of Care 125 mg/dl (65-105)
[2024-10-28 12:31] LABS: Sodium Urine Random 91 meq/L
--- NOTE | 2024-10-28 12:51 | WPDGIPROGNO ---
Progress Note: A&P Assessment and Plan (1) Small bowel obstruction: Code(s): K56.609 - Unspecified intestinal obstruction, unspecified as to partial versus complete obstruction Status: Acute Assessment and Plan: treated with urgent surgery now she is in icu on respiratory support management by surgery and dental detail representative, will follow as needed (2) Acute respiratory failure: Code(s): J96.00 - Acute respiratory failure, unspecified whether with hypoxia or hypercapnia Status: Acute (3) Abdominal distention: Code(s): R14.0 - Abdominal distension (gaseous) Status: Acute (4) Leukocytosis: Qualifiers: Leukocytosis type: unspecified Qualified Code(s): D72.829 - Elevated white blood cell count, unspecified Code(s): D72.829 - Elevated white blood cell count, unspecified Status: Acute (5) Nausea and vomiting: Qualifiers: Vomiting type: bilious vomiting Qualified Code(s): R11.14 - Bilious vomiting Code(s): R11.2 - Nausea with vomiting, unspecified Status: Acute Subjective Date/time seen: 10/28/24 12:51 Interval history: taken to OR yesterday for Exploratory laparotomy, lysis of adhesions, detorsion of closed loop small bowel obstruction now she is intubated in ICU, NGT in place Review of Systems Review of Systems: All systems reviewed & are unremarkable except as noted in HPI and below Exam Const: Other: intubated, sedated, obese HENMT: Other: ngt in place Eyes: Sclera: sclerae normal Neck: Neck: supple Resp: Auscultation: diminished lung sounds Cardio: Rate: regular rate Rhythm: regular rhythm GI: Inspection: Abdominal wall edema, distended and incision GI Palp: Yes abdominal tenderness and Yes Soft to palpation Skin: General skin exam: normal color Neuro: Other: sedated Extrem: General: normal to inspection Objective Data Vital Signs Vital Signs: Vital Signs - 24 hr 10/27/24 14:00 10/27/24 16:40 10/27/24 16:45 Temperature 99.3 F Pulse Rate 104 H 90 Respiratory Rate 18 15 Blood Pressure 148/82 H 156/86 H Pulse Oximetry 97 100 Oxygen Delivery Room Air Fraction of Inspired Oxygen 50 10/27/24 16:45 10/27/24 16:50 10/27/24 16:55 Temperature Pulse Rate 95 88 85 Respiratory Rate 26 H 29 H Blood Pressure Pulse Oximetry 100 Oxygen Delivery Mechanical Ventilation Fraction of Inspired Oxygen 50 10/27/24 18:00 10/27/24 17:30 10/27/24 17:00 Temperature Pulse Rate 85 92 Respiratory Rate 19 Blood Pressure Pulse Oximetry 97 Oxygen Delivery Mechanical Ventilation Fraction of Inspired Oxygen 50 10/27/24 17:10 10/27/24 17:20 10/27/24 17:25 Temperature Pulse Rate 91 86 86 Respiratory Rate 23 H 17 17 Blood Pressure Pulse Oximetry Oxygen Delivery Fraction of Inspired Oxygen 10/27/24 17:10 10/27/24 18:00 10/27/24 18:30 Temperature Pulse Rate 91 84 85 Respiratory Rate 23 H 20 24 H Blood Pressure Pulse Oximetry Oxygen Delivery Fraction of Inspired Oxygen 10/27/24 18:30 10/27/24 18:31 10/27/24 20:28 Temperature Pulse Rate 85 86 82 Respiratory Rate 20 Blood Pressure Pulse Oximetry 98 98 Oxygen Delivery Mechanical Ventilation Mechanical Ventilation Fraction of Inspired Oxygen 50 50 10/27/24 21:50 10/27/24 21:50 10/27/24 20:00 Temperature Pulse Rate 82 82 Respiratory Rate 24 H 24 H Blood Pressure Pulse Oximetry Oxygen Delivery Mechanical Ventilation Fraction of Inspired Oxygen 50 10/27/24 20:00 10/27/24 20:00 10/27/24 20:00 Temperature 97.4 F L Pulse Rate 83 82 Respiratory Rate 24 H Blood Pressure 145/69 H Pulse Oximetry 98 Oxygen Delivery Fraction of Inspired Oxygen 50 10/27/24 20:00 10/27/24 20:00 10/27/24 22:37 Temperature Pulse Rate 83 83 80 Respiratory Rate 24 H 24 H Blood Pressure Pulse Oximetry 99 Oxygen Delivery Mechanical Ventilation Fraction of Inspired Oxygen 50 10/27/24 22:00 10/27/24 22:00 10/27/24 22:00 Temperature Pulse Rate 84 84 84 Respiratory Rate 24 H 24 H 24 H Blood Pressure 137/68 Pulse Oximetry 98 Oxygen Delivery Fraction of Inspired Oxygen 10/27/24 23:43 10/28/24 00:00 10/28/24 00:15 Temperature 97.3 F L Pulse Rate 86 88 Respiratory Rate 24 H 24 H Blood Pressure Pulse Oximetry Oxygen Delivery Fraction of Inspired Oxygen 10/28/24 00:00 10/28/24 00:00 10/28/24 01:30 Temperature Pulse Rate 86 86 84 Respiratory Rate 24 H 24 H 29 H Blood Pressure 116/67 Pulse Oximetry 95 Oxygen Delivery Fraction of Inspired Oxygen 10/28/24 01:35 10/28/24 00:00 10/28/24 00:00 Temperature Pulse Rate 86 Respiratory Rate 26 H Blood Pressure Pulse Oximetry Oxygen Delivery Mechanical Ventilation Fraction of Inspired Oxygen 50 50 10/28/24 00:00 10/28/24 02:15 10/28/24 02:00 Temperature Pulse Rate 85 91 93 Respiratory Rate 24 H Blood Pressure Pulse Oximetry 95 Oxygen Delivery Mechanical Ventilation Fraction of Inspired Oxygen 50 10/28/24 02:00 10/28/24 02:55 10/28/24 02:55 Temperature Pulse Rate 93 87 87 Respiratory Rate 24 H 24 H 24 H Blood Pressure Pulse Oximetry Oxygen Delivery Fraction of Inspired Oxygen 10/28/24 02:00 10/28/24 04:41 10/28/24 04:00 Temperature Pulse Rate 93 87 Respiratory Rate 24 H Blood Pressure 133/62 Pulse Oximetry 98 98 Oxygen Delivery Mechanical Ventilation Mechanical Ventilation Fraction of Inspired Oxygen 50 50 10/28/24 04:00 10/28/24 06:00 10/28/24 04:00 Temperature Pulse Rate 89 86 89 Respiratory Rate 24 H 24 H 24 H Blood Pressure Pulse Oximetry Oxygen Delivery Fraction of Inspired Oxygen 10/28/24 06:00 10/28/24 06:40 10/28/24 04:00 Temperature 97.2 F L Pulse Rate 86 101 H 94 Respiratory Rate 24 H 24 H 24 H Blood Pressure 112/63 Pulse Oximetry 96 Oxygen Delivery Fraction of Inspired Oxygen 10/28/24 04:00 10/28/24 04:00 10/28/24 06:00 Temperature Pulse Rate 97 86 Respiratory Rate 24 H Blood Pressure 108/56 L Pulse Oximetry 98 Oxygen Delivery Fraction of Inspired Oxygen 50 10/28/24 08:47 10/28/24 08:49 10/28/24 09:46 Temperature Pulse Rate 92 96 Respiratory Rate 24 H Blood Pressure Pulse Oximetry 98 98 Oxygen Delivery Mechanical Ventilation Mechanical Ventilation Fraction of Inspired Oxygen 50 50 10/28/24 09:46 10/28/24 11:29 10/28/24 08:00 Temperature 98.4 F Pulse Rate 96 101 H 97 Respiratory Rate 24 H 24 H Blood Pressure 116/60 Pulse Oximetry 97 98 Oxygen Delivery Mechanical Ventilation Fraction of Inspired Oxygen 40 10/28/24 10:00 10/28/24 12:00 10/28/24 08:00 Temperature 98.6 F 98.7 F Pulse Rate 99 98 Respiratory Rate 24 H 24 H Blood Pressure 120/63 101/63 Pulse Oximetry 98 97 Oxygen Delivery Fraction of Inspired Oxygen 40 10/28/24 12:00 10/28/24 08:00 10/28/24 12:00 Temperature Pulse Rate 97 98 Respiratory Rate Blood Pressure Pulse Oximetry Oxygen Delivery Fraction of Inspired Oxygen 40 Intake/Output Intake/Output: Intake & Output 10/25/24 10/26/24 10/27/24 10/28/24 23:59 23:59 23:59 23:59 Intake Total 1838.1 1358.2 Output Total 975 325 Balance 863.1 1033.2 Meds/Results Medications: Active Medications Generic Name Dose Route Start Last Admin Trade Name Freq PRN Reason Stop Dose Admin Albuterol/Ipratropium 3 ml 10/28/24 09:44 Ipratropium 0.5 Mg/Albuterol Sulfate 2.5 Mg Ampul.Neb 3 Ml INHALATION Q6HRT PRN Wheezing Dextrose 12.5 gm 10/27/24 16:50 Dextrose 50% 25 Gm/50 Ml Syringe IV PUSH PRN PRN Hypoglycemia Protocol Enoxaparin Sodium 40 mg 10/28/24 09:00 10/28/24 09:03 Enoxaparin 40 Mg/0.4 Ml Syringe SUB-Q 40 mg DAILY YFN Administration Glucagon 1 mg 10/27/24 16:50 Glucagon For Inj 1 Mg Vial IM PRN PRN Hypoglycemia Protocol Glucose 15 gm 10/27/24 16:50 Glucose Oral Gel 15 Gm Of Glucse In 37.5 Gm Tube PO PRN PRN Hypoglycemia Protocol Hydromorphone HCl 0.5 mg 10/27/24 03:39 10/27/24 08:14 Hydromorphone Hcl Inj (*Crx) 1 Mg/Ml Syr IV PUSH 0.5 mg Q4H PRN Administration Pain Rated 7-10 Fentanyl Citrate 2,500 mcg in 250 mls @ 5 mls/hr 10/27/24 16:50 10/28/24 06:00 Fentanyl 2,500 Mcg/Ns 250 Ml IV CONT 50 mcg/hr .Q50H YFN 5 mls/hr Titration Protocol 50 MCG/HR Propofol 100 mls @ 13.608 mls/hr 10/27/24 16:50 10/28/24 09:46 Diprivan IV CONT 15 mcg/kg/min .Q7H21M YFN 13.61 mls/hr Administration Protocol 15 MCG/KG/MIN Dextrose 1,000 mls @ 100 mls/hr 10/27/24 16:50 Dextrose 5% 1,000 Ml IVPB PRN PRN Hypoglycemia Protocol Piperacillin/Tazobactam/Dextrose 3.375 gm in 50 mls @ 100 mls/hr 10/27/24 18:00 10/28/24 11:13 Zosyn 3.375 Gm/Ns 50 Ml IVPB 100 mls/hr Q6H YFN Administration Albumin Human 100 mls @ 60 mls/hr 10/28/24 09:00 10/28/24 09:04 Albutein IVPB 60 mls/hr Q6H YFN Administration Sodium Chloride 1,000 mls @ 100 mls/hr 10/28/24 08:45 10/28/24 09:03 Sodium Chloride 0.45% IV CONT 100 mls/hr .Q10H YFN Administration Insulin Aspart 3 - 6 units 10/27/24 18:00 10/28/24 11:14 Insulin Aspart (*Bkc) 100 Units/Ml SUB-Q Not Given Q6HR YFN Protocol Levothyroxine Sodium 70 mcg 10/28/24 09:30 10/28/24 09:46 Levothyroxine Sodium Inj 100 Mcg/5 Ml Vial IV PUSH 70 mcg DAILY@0630 YFN Administration Multi-Ingred Cream/Lotion/Oil/Oint 1 applic 10/27/24 21:00 10/28/24 09:04 Mineral Oil/White Petrolatum Ointment EACH EYE 1 applic Q12HR YFN Administration Multi-Ingred Cream/Lotion/Oil/Oint 1 applic 10/28/24 09:00 10/28/24 09:04 Eucerin Cream 120 Gm Jar TOPICAL 1 applic DAILY YFN Administration Ondansetron HCl 4 mg 10/27/24 03:39 Ondansetron Inj 4 Mg/2 Ml Vial IV PUSH Q4H PRN Nausea Pantoprazole Sodium 40 mg 10/28/24 09:00 10/28/24 09:03 Pantoprazole Sodium Iv 40 Mg Vial IV PUSH 40 mg QAM YFN Administration Perflutren Lipid Microsphere 0 ml 10/28/24 09:27 Perflutren Lipid Microspheres 1.5 Ml Vial Diluted To 10 Ml Total Volume IV PUSH 10/31/24 09:27 ONCE PRN adequate visualization Protocol Sodium Chloride 10 ml 10/28/24 14:00 10/28/24 11:14 Central Line Flush IV PUSH 10 ml Q8HR YFN Administration Sodium Chloride 20 ml 10/28/24 07:52 Central Line Flush IV PUSH PRN PRN after blood draws Radiology Results: ITS Impressions Abdomen/Pelvis CT 10/27/24 05:48 Impression: Multiple mildly distended small bowel is within central mesenteric haziness/inflammatory change. Correlate for early/partial small bowel obstruction versus possibly enteritis and reactive ileus. Cholelithiasis. Small Bowel X-Ray 10/27/24 13:04 IMPRESSION: 1. Closed-loop small bowel obstruction. ADDENDUM: 10/27/24 [id number] I called this result to Dr. Morales. Abdomen X-Ray 10/27/24 17:09 IMPRESSION: NO ACUTE ABDOMINAL FINDINGS. Possible stones in the right kidney. Chest X-Ray 10/28/24 10:32 IMPRESSION: 1. Small lung volumes with stable airspace opacities in the perihilar regions, consistent with atelectasis versus pneumonia. 2. Cardiomegaly. Labs Labs: Laboratory Results - last 24 hr 10/27/24 10/27/24 10/27/24 01:55 14:02 15:33 WBC RBC Hgb Hct MCV MCH MCHC RDW Plt Count MPV Immature Gran % (Auto) Neut % (Auto) Lymph % (Auto) [place] % (Auto) Eos % (Auto) Baso % (Auto) Lymph # (Auto) [place] # (Auto) Eos # (Auto) Baso # (Auto) Abs Immat Gran (auto) Absolute Neuts (auto) Absolute Nucleated RBC Nucleated RBC % Puncture Site Artline ABG pH 7.289 L* ABG pCO2 57.6 H ABG pO2 362.0 H ABG PO2/FiO2 Ratio 3.62 ABG HCO3 27.0 H ABG O2 Saturation 99.7 ABG O2 Content 22.2 H ABG Base Excess -0.9 A-a Gradient 293.4 Oxyhemoglobin 98.2 Total Hemoglobin 15.4 O2 Delivery Device In or/per anesthesia O2 Liters/Min Not Reportable Minute Volume Vent Rate Vent Mode FiO2 100 Tidal Volume PEEP Peak Inspir Pressure Pressure Support Sodium 139 Potassium 5.2 H Chloride 108 H Carbon Dioxide 27 Anion Gap 4 BUN 29 H Creatinine 1.50 H Estim Creat Clear Calc 46 Estimated GFR 35 L Glucose 156 H POC Capillary Glucose Calcium 7.6 L Magnesium 1.7 Total Bilirubin 0.5 AST 19 ALT 12 Alkaline Phosphatase 76 Total Creatine Kinase Total Protein 6.0 L Albumin 2.9 L Triglycerides 126 Ur Random Sodium 91 Nasal MRSA (PCR) Blood Type O Positive Antibody Screen Negative 10/27/24 10/27/24 10/27/24 17:38 17:39 18:09 WBC RBC Hgb Hct MCV MCH MCHC RDW Plt Count MPV Immature Gran % (Auto) Neut % (Auto) Lymph % (Auto) [place] % (Auto) Eos % (Auto) Baso % (Auto) Lymph # (Auto) [place] # (Auto) Eos # (Auto) Baso # (Auto) Abs Immat Gran (auto) Absolute Neuts (auto) Absolute Nucleated RBC Nucleated RBC % Puncture Site Artline ABG pH 7.237 L* ABG pCO2 65.6 H* ABG pO2 79.6 L ABG PO2/FiO2 Ratio 1.59 ABG HCO3 27.3 H ABG O2 Saturation 93.3 L ABG O2 Content 20.1 ABG Base Excess -1.8 A-a Gradient 203.1 Oxyhemoglobin 94.4 Total Hemoglobin 15.1 O2 Delivery Device Ventilator O2 Liters/Min Not Reportable Minute Volume Not Reportable Vent Rate 20 Vent Mode Cmv FiO2 50 Tidal Volume 400 PEEP 8 Peak Inspir Pressure Not Reportable Pressure Support Not Reportable Sodium Potassium Chloride Carbon Dioxide Anion Gap BUN Creatinine Estim Creat Clear Calc Estimated GFR Glucose POC Capillary Glucose 128 H Calcium Magnesium Total Bilirubin AST ALT Alkaline Phosphatase Total Creatine Kinase Total Protein Albumin Triglycerides Ur Random Sodium Nasal MRSA (PCR) Not detected Blood Type Antibody Screen 10/27/24 10/28/24 10/28/24 23:36 00:51 03:21 WBC 25.5 H RBC 4.90 Hgb 13.6 Hct 45.5 MCV 92.9 MCH 27.8 MCHC 29.9 L RDW 17.4 H Plt Count 272 MPV 9.2 Immature Gran % (Auto) 0.6 H Neut % (Auto) 89.9 H Lymph % (Auto) 3.2 L [place] % (Auto) 6.1 Eos % (Auto) 0.0 Baso % (Auto) 0.2 Lymph # (Auto) 0.81 L [place] # (Auto) 1.6 H Eos # (Auto) 0.0 Baso # (Auto) 0.1 Abs Immat Gran (auto) 0.15 H Absolute Neuts (auto) 22.9 H Absolute Nucleated RBC 0.000 Nucleated RBC % 0.0 Puncture Site ABG pH ABG pCO2 ABG pO2 ABG PO2/FiO2 Ratio ABG HCO3 ABG O2 Saturation ABG O2 Content ABG Base Excess A-a Gradient Oxyhemoglobin Total Hemoglobin O2 Delivery Device O2 Liters/Min Minute Volume Vent Rate Vent Mode FiO2 Tidal Volume PEEP Peak Inspir Pressure Pressure Support Sodium 141 140 Potassium 6.1 H* 5.0 Chloride 107 108 H Carbon Dioxide 31 H 32 H Anion Gap 3 L 0 L BUN 38 H 42 H Creatinine 1.90 H 2.00 H Estim Creat Clear Calc 37 35 Estimated GFR 26 L 25 L Glucose 133 H 154 H POC Capillary Glucose 120 H Calcium 8.3 L 7.9 L Magnesium 1.8 Total Bilirubin 0.4 AST 18 ALT 13 Alkaline Phosphatase 71 Total Creatine Kinase 34 Total Protein 5.0 L Albumin 2.8 L Triglycerides Ur Random Sodium Nasal MRSA (PCR) Blood Type Antibody Screen 10/28/24 10/28/24 10/28/24 04:39 06:35 11:17 WBC RBC Hgb Hct MCV MCH MCHC RDW Plt Count MPV Immature Gran % (Auto) Neut % (Auto) Lymph % (Auto) [place] % (Auto) Eos % (Auto) Baso % (Auto) Lymph # (Auto) [place] # (Auto) Eos # (Auto) Baso # (Auto) Abs Immat Gran (auto) Absolute Neuts (auto) Absolute Nucleated RBC Nucleated RBC % Puncture Site Artline ABG pH 7.265 L* ABG pCO2 68.3 H* ABG pO2 96.7 ABG PO2/FiO2 Ratio 1.93 ABG HCO3 30.3 H ABG O2 Saturation 96.2 ABG O2 Content 19.5 ABG Base Excess 1.4 A-a Gradient 183.0 Oxyhemoglobin 96.5 Total Hemoglobin 14.3 O2 Delivery Device Ventilator O2 Liters/Min Not Reportable Minute Volume Not Reportable Vent Rate 24 Vent Mode Cmv FiO2 50 Tidal Volume 400 PEEP 8 Peak Inspir Pressure Not Reportable Pressure Support Not Reportable Sodium Potassium Chloride Carbon Dioxide Anion Gap BUN Creatinine Estim Creat Clear Calc Estimated GFR Glucose POC Capillary Glucose 113 H 125 H Calcium Magnesium Total Bilirubin AST ALT Alkaline Phosphatase Total Creatine Kinase Total Protein Albumin Triglycerides Ur Random Sodium Nasal MRSA (PCR) Blood Type Antibody Screen
[2024-10-28] MEDS: PROPOFOL IV EMULSION 100 ML 18.14 MG IV CONT ×2 (17:01→22:21)
[2024-10-28 17:25] LABS: Glucose Point of Care 104 mg/dl (65-105)
[2024-10-29] VITALS (31 sets, daily range): BP systolic 99–157; BP diastolic 51–81; PULSE 67–107; RESP 17–27; TEMP 36.6–36.9; O2SAT 93–99
[2024-10-29] MEDS: PIPERACILLN/TAZ 3.375GM/NS50ML 3.375 GM/50 ML BAG IVPB ×4 (00:20→17:28)
[2024-10-29 00:39] LABS: Glucose Point of Care 114 mg/dl (65-105)
[2024-10-29] MEDS: ALBUMIN HUMAN 25% 25 GM/100 ML 100 ML IVPB ×4 (02:48→20:28)
[2024-10-29] MEDS: PROPOFOL IV EMULSION 100 ML 18.14 MG IV CONT ×2 (03:01→10:13)
[2024-10-29] MEDS: FENTANYL 2,500MCG/NS250ML(*CRX 2,500 MCG/250 ML BAG 7.5 MCG IV CONT (03:03)
[2024-10-29 04:52] LABS: Alveolar/Arterial O2 Gradient 140.6 mmHg; Base Excess ABG -0.2 mEq/l (+/-2.0); Fractional Inspired Oxygen 40 %; HCO3 ABG 24.9 mEq/l (22.0-26.0); Oxygen Content ABG 14.6 %vol (16.0-22.0); Oxygen Saturation ABG 97.2 % (95.0-100.0); Oxyhemoglobin 97.2 % THb (90.0-100.0); PCO2 ABG 42.5 mmHg (35.0-45.0); PO2 ABG 95.7 mmHg (80.0-100.0); PO2 FiO2 Ratio Arterial Blood 2.39 %; Total Hemoglobin 10.6 g/dL (12.0-18.0); pH ABG 7.386 (7.350-7.450)
[2024-10-29 04:53] LABS: Device VENTILATOR; Site Drawn ARTLINE
[2024-10-29 04:54] LABS: Arterial Blood Gas PEEP 8 cmH2O; Arterial Blood Gas Tidal Volume 450 ml; Arterial Blood Gas Vent Mode CMV; Arterial Blood Gas Ventilator rate 24 /MIN
[2024-10-29] MEDS: LEVOTHYROXINE SODIUM INJ 100 MCG/5 ML VIAL 70 MCG IV PUSH (05:25)
[2024-10-29] MEDS: CENTRAL LINE FLUSH 10 ML IV PUSH ×3 (05:48→20:30)
[2024-10-29 05:52] LABS: Glucose Point of Care 109 mg/dl (65-105)
[2024-10-29 05:56] LABS: Basophils Absolute Auto 0.1 K/mm3 (0.0-0.1); Basophils Percent Auto 0.4 % (0.2-1.2); Eosinophils Absolute Auto 0.1 K/mm3 (0-0.3); Eosinophils Percent Auto 0.6 % (0-4.4); Hematocrit 34.4 % (37.0-47.0); Hemoglobin 10.5 g/dL (12.0-15.0); Immature Granulocyte Absolute 0.09 K/mm3 (0.00-0.031); Immature Granulocyte Percent A 0.6 % (0-0.5); Lymphocytes Absolute Auto 1.07 K/mm3 (0.9-3.2); Lymphocytes Percent Auto 6.9 % (18.3-44.2); Mean Corpuscular HGB Conc 30.5 g/dl (32-36); Mean Corpuscular Hemoglobin 27.9 pg (26-34); Mean Corpuscular Volume 91.5 fl (80-100); Mean Platelet Volume 9.7 fl (7.4-10.4); Monocytes Percent Auto 6.4 % (2.6-8.5); Neutrophils Absolute Auto 13.3 K/mm3 (1.3-6.7); Neutrophils Percent Auto 85.1 % (45.5-73.1); Platelet Count Result 228 k/mm3 (150-375); Red Blood Count 3.76 M/mm3 (4.2-5.4); Red Cell Distribution Width 17.3 % (11.5-14.5); White Blood Count 15.6 K/mm3 (4.5-10.0)
[2024-10-29 06:10] LABS: Alanine Aminotransferase 9 U/L (6-35); Albumin Level 3.6 g/dL (3.5-5.1); Alkaline Phosphatase 55 U/L (38-126); Anion Gap 6 mmol/L (4-12); Aspartate Amino Transferase 18 U/L (14-36); Bilirubin,Total 0.8 mg/dL (0.2-1.3); Blood Urea Nitrogen 47 mg/dL (7-17); Calcium 8.2 mg/dL (8.4-10.2); Carbon Dioxide 30 mmol/L (22-30); Chloride 107 mmol/L (98-107); Estimated CRCL calculation 37 ml/min; Estimated Glomerular Filt Rate 26; Glucose 106 mg/dL (65-110); Potassium 4.5 mmol/L (3.4-5.0); Sodium 143 mmol/L (137-145)
[2024-10-29] MEDS: MINERAL OIL/WHITE PETROLATUM OINTMENT 1 APPLIC EACH EYE ×2 (08:36→20:29)
[2024-10-29] MEDS: EUCERIN CREAM 120 GM JAR 1 APPLIC TOPICAL (08:36)
[2024-10-29] MEDS: ENOXAPARIN 40 MG/0.4 ML SYRINGE SUB-Q (08:36)
[2024-10-29] MEDS: PANTOPRAZOLE SODIUM IV 40 MG VIAL IV PUSH (08:36)
--- NOTE | 2024-10-29 09:12 | WPDINTPN ---
Progress Note: A&P Assessment and Plan (1) Acute respiratory failure: Code(s): J96.00 - Acute respiratory failure, unspecified whether with hypoxia or hypercapnia Status: Acute Assessment and Plan: Acute Respiratory failure secondary to general anaesthesia cephalopathy and small-bowel obstruction Continue full mechanical ventilation support to prevent hypoxemia/hypercarbia and end organ damage. ABG reviewed and shows hypoxia respiratory acidosis FiO2 is a 40 Peep is currently at 8 Chest x-ray reviewed Patient placed 5/8 PSV SBT at this time. Pt awake and following commands. RSBI is adequate. Will check ABG and evaluate for extubation. Continue Bronchodilators (2) Small bowel obstruction: Code(s): K56.609 - Unspecified intestinal obstruction, unspecified as to partial versus complete obstruction Status: Acute Assessment and Plan: Status post Exploratory laparotomy, lysis of adhesions, detorsion of closed loop small bowel obstruction npo. NG tube to L IS feeding and management of wound as per General surgery (3) VEE (acute kidney injury): Code(s): N17.9 - Acute kidney failure, unspecified Status: Acute Assessment and Plan: Patient has developed postop VEE which could be secondary to fluid shifting, as sepsis, hypovolemia Patient received IV fluid bolus in OR. She also has significant amount of ascites as per the surgeon which was drained out. Patient does have overall volume overload as evidenced by lower extremity edema and chronic venous stasis which she is likely third-spacing Continue IV fluids Continue 25% albumin Her blood pressure has been adequate and she has not required any vasopressors and will be monitor Normal CK level CT scan was negative for any obstruction or stone Creatinine appears to have stabilized urine output is improving Monitor urine output electrolytes and creatinine (4) Hypothyroidism: Code(s): E03.9 - Hypothyroidism, unspecified Status: Acute Assessment and Plan: Continue IV levothyroxine (5) Enteritis: Code(s): K52.9 - Noninfective gastroenteritis and colitis, unspecified Status: Acute Assessment and Plan: Continue Zosyn (6) Acute UTI: Code(s): N39.0 - Urinary tract infection, site not specified Status: Acute Assessment and Plan: UA suggestive of UTI. Urine and blood cultures pending Currently on Zosyn Plan DVT prophylaxis -Lovenox Stress ulcer prophylaxis -PPI Nutrition - npo Code Status - Full Code Total Critical Care Time - 35 minutes Due to a high probability of clinically significant, life threatening deterioration, the patient required my highest level of preparedness to intervene emergently and I personally spent this critical care time directly and personally managing the patient. This critical care time included obtaining a history; examining the patient; pulse oximetry; ordering and review of studies; arranging urgent treatment with development of a management plan; evaluation of patient's response to treatment; frequent reassessment; and discussions with other providers. It was exclusive of separately billable procedures and treating other patients and teaching time. Please see Assessment and Plan section and the rest of the note for further information on patient assessment and treatment Subjective Date/time seen: 10/29/24 Overnight events reviewed. Afebrile Continues to be on mechanical ventilation 40% FiO2 and 8 of PEEP Continues to be on vasopressors Continues to be sedated with propofol and fentanyl Other Vitals acceptable Improvement in urine output No bowel movement NG tube to low intermittent suction Review of Systems Review of Systems: ROS unobtainable: Yes unobtainable due to endotracheal tube, unobtainable due to medical condition and unobtainable due to mental status Exam Narrative: General: Pt is sedated, intubated and on mechanical ventilation Lungs/Chest: Trachea central Coarse BS B/L, No crackles or wheezing. Cardiac: RRR. Normal S1 S2. No murmurs Circulation: Feet are warm Abdomen: Very few if any bowel sounds. Morbidly Obese. Soft. NT. ND. Incision in the midline covered with dressing Extremities: Bilateral edema and chronic venous stasis changes with dry flaky skin : Ann in place Neurologic: Sedated Moves all 4 extremities to painful stimuli. PERRL on holding sedation she follows commands with all 4 extremities nodes are head appropriately to questions Objective Data Vital Signs Vital Signs: Vital Signs - 24 hr 10/28/24 09:46 10/28/24 09:46 10/28/24 11:29 Temperature Pulse Rate 96 96 101 H Respiratory Rate 24 H 24 H Blood Pressure Pulse Oximetry 97 Oxygen Delivery Mechanical Ventilation Fraction of Inspired Oxygen 40 10/28/24 10:00 10/28/24 12:00 10/28/24 12:00 Temperature 37.0 C 37.1 C Pulse Rate 99 98 Respiratory Rate 24 H 24 H Blood Pressure 120/63 101/63 Pulse Oximetry 98 97 Oxygen Delivery Fraction of Inspired Oxygen 40 10/28/24 12:00 10/28/24 12:00 10/28/24 14:34 Temperature Pulse Rate 98 98 107 H Respiratory Rate 24 H Blood Pressure Pulse Oximetry 97 96 Oxygen Delivery Mechanical Ventilation Mechanical Ventilation Fraction of Inspired Oxygen 50 40 10/28/24 14:00 10/28/24 14:00 10/28/24 10:00 Temperature 37.2 C Pulse Rate 104 H 104 H 99 Respiratory Rate 21 H 24 H Blood Pressure 113/68 Pulse Oximetry 96 Oxygen Delivery Fraction of Inspired Oxygen 10/28/24 11:30 10/28/24 13:30 10/28/24 15:30 Temperature Pulse Rate 98 104 H 103 H Respiratory Rate 24 H 24 H 24 H Blood Pressure Pulse Oximetry Oxygen Delivery Fraction of Inspired Oxygen 10/28/24 09:30 10/28/24 11:00 10/28/24 13:00 Temperature Pulse Rate 97 98 102 H Respiratory Rate 24 H 24 H 24 H Blood Pressure Pulse Oximetry Oxygen Delivery Fraction of Inspired Oxygen 10/28/24 15:00 10/28/24 16:00 10/28/24 16:00 Temperature Pulse Rate 106 H 100 Respiratory Rate 24 H 24 H Blood Pressure Pulse Oximetry 97 Oxygen Delivery Mechanical Ventilation Fraction of Inspired Oxygen 40 50 10/28/24 16:00 10/28/24 16:00 10/28/24 18:00 Temperature 37.2 C 37.1 C Pulse Rate 100 100 100 Respiratory Rate 24 H 24 H Blood Pressure 109/56 L 128/58 L Pulse Oximetry 100 96 Oxygen Delivery Fraction of Inspired Oxygen 10/28/24 18:00 10/28/24 18:07 10/28/24 18:09 Temperature Pulse Rate 100 99 102 H Respiratory Rate 24 H 24 H Blood Pressure Pulse Oximetry Oxygen Delivery Fraction of Inspired Oxygen 10/28/24 17:01 10/28/24 17:01 10/28/24 17:08 Temperature Pulse Rate 99 99 107 H Respiratory Rate 21 H 21 H Blood Pressure Pulse Oximetry 96 Oxygen Delivery Mechanical Ventilation Fraction of Inspired Oxygen 40 10/28/24 20:00 10/28/24 20:00 10/28/24 20:54 Temperature Pulse Rate 93 93 100 Respiratory Rate 24 H 24 H Blood Pressure Pulse Oximetry 97 Oxygen Delivery Mechanical Ventilation Fraction of Inspired Oxygen 40 10/28/24 22:00 10/28/24 22:00 10/28/24 22:21 Temperature Pulse Rate 96 96 92 Respiratory Rate 24 H 24 H 24 H Blood Pressure Pulse Oximetry Oxygen Delivery Fraction of Inspired Oxygen 10/28/24 22:21 10/28/24 22:46 10/28/24 20:00 Temperature Pulse Rate 92 95 93 Respiratory Rate 24 H 24 H Blood Pressure Pulse Oximetry 96 97 Oxygen Delivery Mechanical Ventilation Mechanical Ventilation Fraction of Inspired Oxygen 40 40 10/28/24 20:00 10/28/24 20:00 10/28/24 20:00 Temperature 37.1 C Pulse Rate 93 93 Respiratory Rate 24 H Blood Pressure 106/56 L Pulse Oximetry 97 Oxygen Delivery Fraction of Inspired Oxygen 40 10/28/24 22:00 10/29/24 00:00 10/29/24 00:00 Temperature 37.1 C Pulse Rate 96 92 93 Respiratory Rate 24 H 24 H 24 H Blood Pressure 112/56 L Pulse Oximetry 97 Oxygen Delivery Fraction of Inspired Oxygen 10/29/24 00:00 10/29/24 00:00 10/29/24 00:00 Temperature Pulse Rate 89 89 Respiratory Rate 24 H Blood Pressure Pulse Oximetry 97 Oxygen Delivery Mechanical Ventilation Fraction of Inspired Oxygen 40 40 10/29/24 00:00 10/29/24 02:19 10/29/24 02:00 Temperature 36.9 C Pulse Rate 89 81 81 Respiratory Rate 24 H 24 H Blood Pressure 110/53 L Pulse Oximetry 97 97 Oxygen Delivery Mechanical Ventilation Fraction of Inspired Oxygen 40 10/29/24 02:00 10/29/24 03:01 10/29/24 03:01 Temperature Pulse Rate 81 80 80 Respiratory Rate 24 H 24 H 24 H Blood Pressure Pulse Oximetry Oxygen Delivery Fraction of Inspired Oxygen 10/29/24 03:03 10/29/24 03:03 10/29/24 02:00 Temperature 36.8 C Pulse Rate 80 80 83 Respiratory Rate 24 H 24 H 24 H Blood Pressure 99/54 L Pulse Oximetry 97 Oxygen Delivery Fraction of Inspired Oxygen 10/29/24 04:00 10/29/24 04:00 10/29/24 04:59 Temperature Pulse Rate 77 76 88 Respiratory Rate 24 H 24 H Blood Pressure Pulse Oximetry 97 Oxygen Delivery Mechanical Ventilation Fraction of Inspired Oxygen 40 10/29/24 06:00 10/29/24 06:00 10/29/24 04:00 Temperature Pulse Rate 88 88 79 Respiratory Rate 24 H 24 H 24 H Blood Pressure Pulse Oximetry 97 Oxygen Delivery Mechanical Ventilation Fraction of Inspired Oxygen 40 10/29/24 04:00 10/29/24 04:00 10/29/24 04:00 Temperature 36.7 C Pulse Rate 79 79 Respiratory Rate 24 H Blood Pressure 112/57 L Pulse Oximetry 97 Oxygen Delivery Fraction of Inspired Oxygen 40 10/29/24 06:00 10/29/24 08:00 10/29/24 08:00 Temperature 36.9 C 36.7 C Pulse Rate 89 72 72 Respiratory Rate 24 H 24 H 24 H Blood Pressure 132/59 L 111/51 L Pulse Oximetry 96 96 Oxygen Delivery Fraction of Inspired Oxygen 10/29/24 08:00 10/29/24 08:44 Temperature Pulse Rate 72 105 H Respiratory Rate 24 H Blood Pressure Pulse Oximetry 94 Oxygen Delivery Mechanical Ventilation Fraction of Inspired Oxygen 40 Intake/Output Intake/Output: Intake & Output 10/26/24 10/27/24 10/28/24 10/29/24 23:59 23:59 23:59 23:59 Intake Total 1838.1 3066.2 450.0 Output Total 975 700 750 Balance 863.1 2366.2 -300.0 Meds/Results Medications: Active Medications Generic Name Dose Route Start Last Admin Trade Name Freq PRN Reason Stop Dose Admin Albuterol/Ipratropium 3 ml 10/28/24 09:44 Ipratropium 0.5 Mg/Albuterol Sulfate 2.5 Mg Ampul.Neb 3 Ml INHALATION Q6HRT PRN Wheezing Dextrose 12.5 gm 10/27/24 16:50 Dextrose 50% 25 Gm/50 Ml Syringe IV PUSH PRN PRN Hypoglycemia Protocol Enoxaparin Sodium 40 mg 10/28/24 09:00 10/29/24 08:36 Enoxaparin 40 Mg/0.4 Ml Syringe SUB-Q 40 mg DAILY YFN Administration Glucagon 1 mg 10/27/24 16:50 Glucagon For Inj 1 Mg Vial IM PRN PRN Hypoglycemia Protocol Glucose 15 gm 10/27/24 16:50 Glucose Oral Gel 15 Gm Of Glucse In 37.5 Gm Tube PO PRN PRN Hypoglycemia Protocol Hydromorphone HCl 0.5 mg 10/27/24 03:39 10/27/24 08:14 Hydromorphone Hcl Inj (*Crx) 1 Mg/Ml Syr IV PUSH 0.5 mg Q4H PRN Administration Pain Rated 7-10 Fentanyl Citrate 2,500 mcg in 250 mls @ 0 mls/hr 10/27/24 16:50 10/29/24 08:00 Fentanyl 2,500 Mcg/Ns 250 Ml IV CONT 0 mcg/hr .Q0M YFN 0 mls/hr Titration Protocol 0 MCG/HR Propofol 100 mls @ 0 mls/hr 10/27/24 16:50 10/29/24 08:00 Diprivan IV CONT 0 mcg/kg/min .Q0M YFN 0 mls/hr Titration Protocol 0 MCG/KG/MIN Dextrose 1,000 mls @ 100 mls/hr 10/27/24 16:50 Dextrose 5% 1,000 Ml IVPB PRN PRN Hypoglycemia Protocol Piperacillin/Tazobactam/Dextrose 3.375 gm in 50 mls @ 100 mls/hr 10/27/24 18:00 10/29/24 06:22 Zosyn 3.375 Gm/Ns 50 Ml IVPB Infused Q6H YFN Infusion Albumin Human 100 mls @ 60 mls/hr 10/28/24 09:00 10/29/24 08:37 Albutein IVPB 10/29/24 23:59 60 mls/hr Q6H YFN Administration Sodium Chloride 1,000 mls @ 100 mls/hr 10/28/24 08:45 10/28/24 21:51 Sodium Chloride 0.45% IV CONT 100 mls/hr .Q10H YFN Administration Insulin Aspart 3 - 6 units 10/27/24 18:00 10/29/24 05:49 Insulin Aspart (*Bkc) 100 Units/Ml SUB-Q Not Given Q6HR YFN Protocol Levothyroxine Sodium 70 mcg 10/28/24 09:30 10/29/24 05:25 Levothyroxine Sodium Inj 100 Mcg/5 Ml Vial IV PUSH 70 mcg DAILY@0630 YFN Administration Multi-Ingred Cream/Lotion/Oil/Oint 1 applic 10/27/24 21:00 10/29/24 08:36 Mineral Oil/White Petrolatum Ointment EACH EYE 1 applic Q12HR YFN Administration Multi-Ingred Cream/Lotion/Oil/Oint 1 applic 10/28/24 09:00 10/29/24 08:36 Eucerin Cream 120 Gm Jar TOPICAL 1 applic DAILY YFN Administration Ondansetron HCl 4 mg 10/27/24 03:39 Ondansetron Inj 4 Mg/2 Ml Vial IV PUSH Q4H PRN Nausea Pantoprazole Sodium 40 mg 10/28/24 09:00 10/29/24 08:36 Pantoprazole Sodium Iv 40 Mg Vial IV PUSH 40 mg QAM YFN Administration Perflutren Lipid Microsphere 0 ml 10/28/24 09:27 Perflutren Lipid Microspheres 1.5 Ml Vial Diluted To 10 Ml Total Volume IV PUSH 10/31/24 09:27 ONCE PRN adequate visualization Protocol Sodium Chloride 10 ml 10/28/24 14:00 10/29/24 05:48 Central Line Flush IV PUSH 10 ml Q8HR YFN Administration Sodium Chloride 20 ml 10/28/24 07:52 Central Line Flush IV PUSH PRN PRN after blood draws Radiology Results: ITS Impressions Abdomen/Pelvis CT 10/27/24 05:48 Impression: Multiple mildly distended small bowel is within central mesenteric haziness/inflammatory change. Correlate for early/partial small bowel obstruction versus possibly enteritis and reactive ileus. Cholelithiasis. Small Bowel X-Ray 10/27/24 13:04 IMPRESSION: 1. Closed-loop small bowel obstruction. ADDENDUM: 10/27/24 [id number] I called this result to Dr. Morales. Abdomen X-Ray 10/27/24 17:09 IMPRESSION: NO ACUTE ABDOMINAL FINDINGS. Possible stones in the right kidney. Chest X-Ray 10/29/24 06:18 IMPRESSION: 1. Small lung volumes with stable airspace opacities in left lower lobe, consistent with atelectasis versus pneumonia. 2. Cardiomegaly. Labs Labs: Laboratory Results - last 24 hr 10/27/24 10/28/24 10/28/24 01:55 00:51 11:17 WBC RBC Hgb Hct MCV MCH MCHC RDW Plt Count MPV Immature Gran % (Auto) Neut % (Auto) Lymph % (Auto) [place] % (Auto) Eos % (Auto) Baso % (Auto) Lymph # (Auto) [place] # (Auto) Eos # (Auto) Baso # (Auto) Abs Immat Gran (auto) Absolute Neuts (auto) Absolute Nucleated RBC Nucleated RBC % Puncture Site ABG pH ABG pCO2 ABG pO2 ABG PO2/FiO2 Ratio ABG HCO3 ABG O2 Saturation ABG O2 Content ABG Base Excess A-a Gradient Oxyhemoglobin Total Hemoglobin O2 Delivery Device O2 Liters/Min Minute Volume Vent Rate Vent Mode FiO2 Tidal Volume PEEP Peak Inspir Pressure Pressure Support Sodium Potassium Chloride Carbon Dioxide Anion Gap BUN Creatinine Estim Creat Clear Calc Estimated GFR Glucose POC Capillary Glucose 125 H Calcium Total Bilirubin AST ALT Alkaline Phosphatase Total Creatine Kinase 34 Total Protein Albumin Ur Random Sodium 91 10/28/24 10/29/24 10/29/24 17:24 00:19 04:38 WBC RBC Hgb Hct MCV MCH MCHC RDW Plt Count MPV Immature Gran % (Auto) Neut % (Auto) Lymph % (Auto) [place] % (Auto) Eos % (Auto) Baso % (Auto) Lymph # (Auto) [place] # (Auto) Eos # (Auto) Baso # (Auto) Abs Immat Gran (auto) Absolute Neuts (auto) Absolute Nucleated RBC Nucleated RBC % Puncture Site Artline ABG pH 7.386 ABG pCO2 42.5 ABG pO2 95.7 ABG PO2/FiO2 Ratio 2.39 ABG HCO3 24.9 ABG O2 Saturation 97.2 ABG O2 Content 14.6 L ABG Base Excess -0.2 A-a Gradient 140.6 Oxyhemoglobin 97.2 Total Hemoglobin 10.6 L O2 Delivery Device Ventilator O2 Liters/Min Not Reportable Minute Volume Not Reportable Vent Rate 24 Vent Mode Cmv FiO2 40 Tidal Volume 450 PEEP 8 Peak Inspir Pressure Not Reportable Pressure Support Not Reportable Sodium Potassium Chloride Carbon Dioxide Anion Gap BUN Creatinine Estim Creat Clear Calc Estimated GFR Glucose POC Capillary Glucose 104 114 H Calcium Total Bilirubin AST ALT Alkaline Phosphatase Total Creatine Kinase Total Protein Albumin Ur Random Sodium 10/29/24 10/29/24 05:33 05:46 WBC 15.6 H RBC 3.76 L Hgb 10.5 L D Hct 34.4 L MCV 91.5 MCH 27.9 MCHC 30.5 L RDW 17.3 H Plt Count 228 MPV 9.7 Immature Gran % (Auto) 0.6 H Neut % (Auto) 85.1 H Lymph % (Auto) 6.9 L [place] % (Auto) 6.4 Eos % (Auto) 0.6 Baso % (Auto) 0.4 Lymph # (Auto) 1.07 [place] # (Auto) 1.0 H Eos # (Auto) 0.1 Baso # (Auto) 0.1 Abs Immat Gran (auto) 0.09 H Absolute Neuts (auto) 13.3 H Absolute Nucleated RBC 0.000 Nucleated RBC % 0.0 Puncture Site ABG pH ABG pCO2 ABG pO2 ABG PO2/FiO2 Ratio ABG HCO3 ABG O2 Saturation ABG O2 Content ABG Base Excess A-a Gradient Oxyhemoglobin Total Hemoglobin O2 Delivery Device O2 Liters/Min Minute Volume Vent Rate Vent Mode FiO2 Tidal Volume PEEP Peak Inspir Pressure Pressure Support Sodium 143 Potassium 4.5 Chloride 107 Carbon Dioxide 30 Anion Gap 6 BUN 47 H Creatinine 1.90 H Estim Creat Clear Calc 37 Estimated GFR 26 L Glucose 106 POC Capillary Glucose 109 H Calcium 8.2 L Total Bilirubin 0.8 AST 18 ALT 9 Alkaline Phosphatase 55 Total Creatine Kinase Total Protein 6.0 L Albumin 3.6 Ur Random Sodium Quality VTE Prophylaxis VTE prophylaxis: mechanical ordered
[2024-10-29] MEDS: SODIUM CHLORIDE 0.45% 1,000 ML 100 ML IV CONT ×2 (09:15→20:24)
[2024-10-29 09:39] LABS: Alveolar/Arterial O2 Gradient 120.3 mmHg; Base Excess ABG 0.6 mEq/l (+/-2.0); Fractional Inspired Oxygen 40 %; HCO3 ABG 28.2 mEq/l (22.0-26.0); Oxygen Content ABG 15.5 %vol (16.0-22.0); Oxygen Saturation ABG 96.3 % (95.0-100.0); Oxyhemoglobin 96.6 % THb (90.0-100.0); PO2 ABG 95.1 mmHg (80.0-100.0); PO2 FiO2 Ratio Arterial Blood 2.38 %; Total Hemoglobin 11.3 g/dL (12.0-18.0)
[2024-10-29 09:41] LABS: pH ABG 7.285 (7.350-7.450)
[2024-10-29 09:42] LABS: Device VENTILATOR; PCO2 ABG 60.7 mmHg (35.0-45.0); Site Drawn ARTLINE
[2024-10-29 09:43] LABS: Arterial Blood Gas Vent Mode SPONTANEOUS; Peak Inspiratory Pressure 5 cmH2O
[2024-10-29 09:44] LABS: Arterial Blood Gas PEEP 8 cmH2O
--- NOTE | 2024-10-29 11:34 | PM.PNGS ---
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 Subjective Subjective Date/Time Seen: 10/29/24 11:34 Interval history: no acute issues, failed weaning trial this am Review of Systems Review of Systems: ROS unobtainable: Yes unobtainable due to endotracheal tube Exam Const: Other: intubated, sedated Resp: Auscultation: diminished lung sounds Cardio: Rate: tachycardic Rhythm: regular rhythm GI: Inspection: normal to inspection, distended, incision and obesity GI Palp: Yes abdominal tenderness and Yes Soft to palpation Objective Data Vital Signs Vital Signs: Vital Signs - 24 hr 10/28/24 12:00 10/28/24 12:00 10/28/24 12:00 Temperature 37.1 C Pulse Rate 98 98 Respiratory Rate 24 H Blood Pressure 101/63 Pulse Oximetry 97 Oxygen Delivery Fraction of Inspired Oxygen 40 10/28/24 12:00 10/28/24 14:34 10/28/24 14:00 Temperature 37.2 C Pulse Rate 98 107 H 104 H Respiratory Rate 24 H 21 H Blood Pressure 113/68 Pulse Oximetry 97 96 96 Oxygen Delivery Mechanical Ventilation Mechanical Ventilation Fraction of Inspired Oxygen 50 40 10/28/24 14:00 10/28/24 13:30 10/28/24 15:30 Temperature Pulse Rate 104 H 104 H 103 H Respiratory Rate 24 H 24 H Blood Pressure Pulse Oximetry Oxygen Delivery Fraction of Inspired Oxygen 10/28/24 13:00 10/28/24 15:00 10/28/24 16:00 Temperature Pulse Rate 102 H 106 H Respiratory Rate 24 H 24 H Blood Pressure Pulse Oximetry Oxygen Delivery Fraction of Inspired Oxygen 40 10/28/24 16:00 10/28/24 16:00 10/28/24 16:00 Temperature 37.2 C Pulse Rate 100 100 100 Respiratory Rate 24 H 24 H Blood Pressure 109/56 L Pulse Oximetry 97 100 Oxygen Delivery Mechanical Ventilation Fraction of Inspired Oxygen 50 10/28/24 18:00 10/28/24 18:00 10/28/24 18:07 Temperature 37.1 C Pulse Rate 100 100 99 Respiratory Rate 24 H 24 H Blood Pressure 128/58 L Pulse Oximetry 96 Oxygen Delivery Fraction of Inspired Oxygen 10/28/24 18:09 10/28/24 17:01 10/28/24 17:01 Temperature Pulse Rate 102 H 99 99 Respiratory Rate 24 H 21 H 21 H Blood Pressure Pulse Oximetry Oxygen Delivery Fraction of Inspired Oxygen 10/28/24 17:08 10/28/24 20:00 10/28/24 20:00 Temperature Pulse Rate 107 H 93 93 Respiratory Rate 24 H 24 H Blood Pressure Pulse Oximetry 96 Oxygen Delivery Mechanical Ventilation Fraction of Inspired Oxygen 40 10/28/24 20:54 10/28/24 22:00 10/28/24 22:00 Temperature Pulse Rate 100 96 96 Respiratory Rate 24 H 24 H Blood Pressure Pulse Oximetry 97 Oxygen Delivery Mechanical Ventilation Fraction of Inspired Oxygen 40 10/28/24 22:21 10/28/24 22:21 10/28/24 22:46 Temperature Pulse Rate 92 92 95 Respiratory Rate 24 H 24 H Blood Pressure Pulse Oximetry 96 Oxygen Delivery Mechanical Ventilation Fraction of Inspired Oxygen 40 10/28/24 20:00 10/28/24 20:00 10/28/24 20:00 Temperature Pulse Rate 93 93 Respiratory Rate 24 H Blood Pressure Pulse Oximetry 97 Oxygen Delivery Mechanical Ventilation Fraction of Inspired Oxygen 40 40 10/28/24 20:00 10/28/24 22:00 10/29/24 00:00 Temperature 37.1 C 37.1 C Pulse Rate 93 96 92 Respiratory Rate 24 H 24 H 24 H Blood Pressure 106/56 L 112/56 L Pulse Oximetry 97 97 Oxygen Delivery Fraction of Inspired Oxygen 10/29/24 00:00 10/29/24 00:00 10/29/24 00:00 Temperature Pulse Rate 93 89 89 Respiratory Rate 24 H 24 H Blood Pressure Pulse Oximetry 97 Oxygen Delivery Mechanical Ventilation Fraction of Inspired Oxygen 40 10/29/24 00:00 10/29/24 00:00 10/29/24 02:19 Temperature 36.9 C Pulse Rate 89 81 Respiratory Rate 24 H Blood Pressure 110/53 L Pulse Oximetry 97 97 Oxygen Delivery Mechanical Ventilation Fraction of Inspired Oxygen 40 40 10/29/24 02:00 10/29/24 02:00 10/29/24 03:01 Temperature Pulse Rate 81 81 80 Respiratory Rate 24 H 24 H 24 H Blood Pressure Pulse Oximetry Oxygen Delivery Fraction of Inspired Oxygen 10/29/24 03:01 10/29/24 03:03 10/29/24 03:03 Temperature Pulse Rate 80 80 80 Respiratory Rate 24 H 24 H 24 H Blood Pressure Pulse Oximetry Oxygen Delivery Fraction of Inspired Oxygen 10/29/24 02:00 10/29/24 04:00 10/29/24 04:00 Temperature 36.8 C Pulse Rate 83 77 76 Respiratory Rate 24 H 24 H 24 H Blood Pressure 99/54 L Pulse Oximetry 97 Oxygen Delivery Fraction of Inspired Oxygen 10/29/24 04:59 10/29/24 06:00 10/29/24 06:00 Temperature Pulse Rate 88 88 88 Respiratory Rate 24 H 24 H Blood Pressure Pulse Oximetry 97 Oxygen Delivery Mechanical Ventilation Fraction of Inspired Oxygen 40 10/29/24 04:00 10/29/24 04:00 10/29/24 04:00 Temperature Pulse Rate 79 79 Respiratory Rate 24 H Blood Pressure Pulse Oximetry 97 Oxygen Delivery Mechanical Ventilation Fraction of Inspired Oxygen 40 40 10/29/24 04:00 10/29/24 06:00 10/29/24 08:00 Temperature 36.7 C 36.9 C 36.7 C Pulse Rate 79 89 72 Respiratory Rate 24 H 24 H 24 H Blood Pressure 112/57 L 132/59 L 111/51 L Pulse Oximetry 97 96 96 Oxygen Delivery Fraction of Inspired Oxygen 10/29/24 08:00 10/29/24 08:00 10/29/24 08:44 Temperature Pulse Rate 72 72 105 H Respiratory Rate 24 H 24 H Blood Pressure Pulse Oximetry 94 Oxygen Delivery Mechanical Ventilation Fraction of Inspired Oxygen 40 10/29/24 08:00 10/29/24 08:00 10/29/24 09:50 Temperature Pulse Rate 106 H Respiratory Rate Blood Pressure Pulse Oximetry 95 Oxygen Delivery Mechanical Ventilation Mechanical Ventilation Fraction of Inspired Oxygen 40 40 40 10/29/24 09:50 10/29/24 10:13 10/29/24 10:13 Temperature Pulse Rate 107 H 96 96 Respiratory Rate 27 H 24 H 24 H Blood Pressure Pulse Oximetry Oxygen Delivery Fraction of Inspired Oxygen 10/29/24 10:00 10/29/24 11:00 Temperature 36.9 C Pulse Rate 97 85 Respiratory Rate 19 Blood Pressure 144/65 H Pulse Oximetry 95 95 Oxygen Delivery Mechanical Ventilation Fraction of Inspired Oxygen 40 Intake/Output Intake/Output: Intake & Output 10/26/24 10/27/24 10/28/24 10/29/24 23:59 23:59 23:59 23:59 Intake Total 1838.1 3066.2 1557.0 Output Total 975 700 750 Balance 863.1 2366.2 807.0 Meds/Results Medications: Active Medications Generic Name Dose Route Start Last Admin Trade Name Freq PRN Reason Stop Dose Admin Albuterol/Ipratropium 3 ml 10/28/24 09:44 Ipratropium 0.5 Mg/Albuterol Sulfate 2.5 Mg Ampul.Neb 3 Ml INHALATION Q6HRT PRN Wheezing Dextrose 12.5 gm 10/27/24 16:50 Dextrose 50% 25 Gm/50 Ml Syringe IV PUSH PRN PRN Hypoglycemia Protocol Enoxaparin Sodium 40 mg 10/28/24 09:00 10/29/24 08:36 Enoxaparin 40 Mg/0.4 Ml Syringe SUB-Q 40 mg DAILY YFN Administration Glucagon 1 mg 10/27/24 16:50 Glucagon For Inj 1 Mg Vial IM PRN PRN Hypoglycemia Protocol Glucose 15 gm 10/27/24 16:50 Glucose Oral Gel 15 Gm Of Glucse In 37.5 Gm Tube PO PRN PRN Hypoglycemia Protocol Hydromorphone HCl 0.5 mg 10/27/24 03:39 10/27/24 08:14 Hydromorphone Hcl Inj (*Crx) 1 Mg/Ml Syr IV PUSH 0.5 mg Q4H PRN Administration Pain Rated 7-10 Fentanyl Citrate 2,500 mcg in 250 mls @ 0 mls/hr 10/27/24 16:50 10/29/24 08:00 Fentanyl 2,500 Mcg/Ns 250 Ml IV CONT 0 mcg/hr .Q0M YFN 0 mls/hr Titration Protocol 0 MCG/HR Propofol 100 mls @ 18.144 mls/hr 10/27/24 16:50 10/29/24 10:13 Diprivan IV CONT 20 mcg/kg/min .Q5H31M YFN 18.14 mls/hr Administration Protocol 20 MCG/KG/MIN Dextrose 1,000 mls @ 100 mls/hr 10/27/24 16:50 Dextrose 5% 1,000 Ml IVPB PRN PRN Hypoglycemia Protocol Piperacillin/Tazobactam/Dextrose 3.375 gm in 50 mls @ 100 mls/hr 10/27/24 18:00 10/29/24 06:22 Zosyn 3.375 Gm/Ns 50 Ml IVPB Infused Q6H YFN Infusion Albumin Human 100 mls @ 60 mls/hr 10/28/24 09:00 10/29/24 10:59 Albutein IVPB 10/29/24 23:59 Infused Q6H YFN Infusion Sodium Chloride 1,000 mls @ 100 mls/hr 10/28/24 08:45 10/29/24 09:15 Sodium Chloride 0.45% IV CONT 100 mls/hr .Q10H YFN Administration Insulin Aspart 3 - 6 units 10/27/24 18:00 10/29/24 05:49 Insulin Aspart (*Bkc) 100 Units/Ml SUB-Q Not Given Q6HR YFN Protocol Levothyroxine Sodium 70 mcg 10/28/24 09:30 10/29/24 05:25 Levothyroxine Sodium Inj 100 Mcg/5 Ml Vial IV PUSH 70 mcg DAILY@0630 YFN Administration Multi-Ingred Cream/Lotion/Oil/Oint 1 applic 10/27/24 21:00 10/29/24 08:36 Mineral Oil/White Petrolatum Ointment EACH EYE 1 applic Q12HR YFN Administration Multi-Ingred Cream/Lotion/Oil/Oint 1 applic 10/28/24 09:00 10/29/24 08:36 Eucerin Cream 120 Gm Jar TOPICAL 1 applic DAILY YFN Administration Ondansetron HCl 4 mg 10/27/24 03:39 Ondansetron Inj 4 Mg/2 Ml Vial IV PUSH Q4H PRN Nausea Pantoprazole Sodium 40 mg 10/28/24 09:00 10/29/24 08:36 Pantoprazole Sodium Iv 40 Mg Vial IV PUSH 40 mg QAM YFN Administration Perflutren Lipid Microsphere 0 ml 10/28/24 09:27 Perflutren Lipid Microspheres 1.5 Ml Vial Diluted To 10 Ml Total Volume IV PUSH 10/31/24 09:27 ONCE PRN adequate visualization Protocol Sodium Chloride 10 ml 10/28/24 14:00 10/29/24 05:48 Central Line Flush IV PUSH 10 ml Q8HR YFN Administration Sodium Chloride 20 ml 10/28/24 07:52 Central Line Flush IV PUSH PRN PRN after blood draws Radiology Results: ITS Impressions Abdomen/Pelvis CT 10/27/24 05:48 Impression: Multiple mildly distended small bowel is within central mesenteric haziness/inflammatory change. Correlate for early/partial small bowel obstruction versus possibly enteritis and reactive ileus. Cholelithiasis. Small Bowel X-Ray 10/27/24 13:04 IMPRESSION: 1. Closed-loop small bowel obstruction. ADDENDUM: 10/27/24 [id number] I called this result to Dr. Morales. Abdomen X-Ray 10/27/24 17:09 IMPRESSION: NO ACUTE ABDOMINAL FINDINGS. Possible stones in the right kidney. Chest X-Ray 10/29/24 06:18 IMPRESSION: 1. Small lung volumes with stable airspace opacities in left lower lobe, consistent with atelectasis versus pneumonia. 2. Cardiomegaly. Labs Labs: Laboratory Results - last 24 hr 10/27/24 10/28/24 10/29/24 01:55 17:24 00:19 WBC RBC Hgb Hct MCV MCH MCHC RDW Plt Count MPV Immature Gran % (Auto) Neut % (Auto) Lymph % (Auto) [place] % (Auto) Eos % (Auto) Baso % (Auto) Lymph # (Auto) [place] # (Auto) Eos # (Auto) Baso # (Auto) Abs Immat Gran (auto) Absolute Neuts (auto) Absolute Nucleated RBC Nucleated RBC % Puncture Site ABG pH ABG pCO2 ABG pO2 ABG PO2/FiO2 Ratio ABG HCO3 ABG O2 Saturation ABG O2 Content ABG Base Excess A-a Gradient Oxyhemoglobin Total Hemoglobin O2 Delivery Device O2 Liters/Min Minute Volume Vent Rate Vent Mode FiO2 Tidal Volume PEEP Peak Inspir Pressure Pressure Support Sodium Potassium Chloride Carbon Dioxide Anion Gap BUN Creatinine Estim Creat Clear Calc Estimated GFR Glucose POC Capillary Glucose 104 114 H Calcium Total Bilirubin AST ALT Alkaline Phosphatase Total Protein Albumin Ur Random Sodium 91 10/29/24 10/29/24 10/29/24 04:38 05:33 05:46 WBC 15.6 H RBC 3.76 L Hgb 10.5 L D Hct 34.4 L MCV 91.5 MCH 27.9 MCHC 30.5 L RDW 17.3 H Plt Count 228 MPV 9.7 Immature Gran % (Auto) 0.6 H Neut % (Auto) 85.1 H Lymph % (Auto) 6.9 L [place] % (Auto) 6.4 Eos % (Auto) 0.6 Baso % (Auto) 0.4 Lymph # (Auto) 1.07 [place] # (Auto) 1.0 H Eos # (Auto) 0.1 Baso # (Auto) 0.1 Abs Immat Gran (auto) 0.09 H Absolute Neuts (auto) 13.3 H Absolute Nucleated RBC 0.000 Nucleated RBC % 0.0 Puncture Site Artline ABG pH 7.386 ABG pCO2 42.5 ABG pO2 95.7 ABG PO2/FiO2 Ratio 2.39 ABG HCO3 24.9 ABG O2 Saturation 97.2 ABG O2 Content 14.6 L ABG Base Excess -0.2 A-a Gradient 140.6 Oxyhemoglobin 97.2 Total Hemoglobin 10.6 L O2 Delivery Device Ventilator O2 Liters/Min Not Reportable Minute Volume Not Reportable Vent Rate 24 Vent Mode Cmv FiO2 40 Tidal Volume 450 PEEP 8 Peak Inspir Pressure Not Reportable Pressure Support Not Reportable Sodium 143 Potassium 4.5 Chloride 107 Carbon Dioxide 30 Anion Gap 6 BUN 47 H Creatinine 1.90 H Estim Creat Clear Calc 37 Estimated GFR 26 L Glucose 106 POC Capillary Glucose 109 H Calcium 8.2 L Total Bilirubin 0.8 AST 18 ALT 9 Alkaline Phosphatase 55 Total Protein 6.0 L Albumin 3.6 Ur Random Sodium 10/29/24 09:35 WBC RBC Hgb Hct MCV MCH MCHC RDW Plt Count MPV Immature Gran % (Auto) Neut % (Auto) Lymph % (Auto) [place] % (Auto) Eos % (Auto) Baso % (Auto) Lymph # (Auto) [place] # (Auto) Eos # (Auto) Baso # (Auto) Abs Immat Gran (auto) Absolute Neuts (auto) Absolute Nucleated RBC Nucleated RBC % Puncture Site Artline ABG pH 7.285 L* ABG pCO2 60.7 H* ABG pO2 95.1 ABG PO2/FiO2 Ratio 2.38 ABG HCO3 28.2 H ABG O2 Saturation 96.3 ABG O2 Content 15.5 L ABG Base Excess 0.6 A-a Gradient 120.3 Oxyhemoglobin 96.6 Total Hemoglobin 11.3 L O2 Delivery Device Ventilator O2 Liters/Min 0.0 Minute Volume Not Reportable Vent Rate Not Reportable Vent Mode Spontaneous FiO2 40 Tidal Volume PEEP 8 Peak Inspir Pressure 5 Pressure Support Sodium Potassium Chloride Carbon Dioxide Anion Gap BUN Creatinine Estim Creat Clear Calc Estimated GFR Glucose POC Capillary Glucose Calcium Total Bilirubin AST ALT Alkaline Phosphatase Total Protein Albumin Ur Random Sodium
[2024-10-29 12:27] LABS: Glucose Point of Care 97 mg/dl (65-105)
[2024-10-29] MEDS: EUCERIN CREAM 454 GM JAR 1 APPLIC TOPICAL (12:43)
[2024-10-29] MEDS: PROPOFOL IV EMULSION 100 ML 27.22 MG IV CONT (15:06)
[2024-10-29 16:45] LABS: Glucose Point of Care 82 mg/dl (65-105)
[2024-10-29 17:03] LABS: Triglycerides 153 mg/dL (<150)
[2024-10-29] MEDS: PROPOFOL IV EMULSION 100 ML 31.75 MG IV CONT ×2 (18:58→22:00)
[2024-10-30] VITALS (33 sets, daily range): BP systolic 126–159; BP diastolic 61–94; PULSE 49–85; RESP 18–26; TEMP 36.5–37.2; O2SAT 91–97; BMI 61.9
[2024-10-30] MEDS: PIPERACILLN/TAZ 3.375GM/NS50ML 3.375 GM/50 ML BAG IVPB ×4 (00:32→17:50)
[2024-10-30] MEDS: PROPOFOL IV EMULSION 100 ML 31.75 MG IV CONT ×2 (00:40→06:03)
[2024-10-30 00:43] LABS: Glucose Point of Care 101 mg/dl (65-105)
[2024-10-30] MEDS: PROPOFOL IV EMULSION 100 ML 36.29 MG IV CONT (03:21)
[2024-10-30] MEDS: CENTRAL LINE FLUSH 10 ML IV PUSH ×3 (05:28→21:00)
[2024-10-30] MEDS: LEVOTHYROXINE SODIUM INJ 100 MCG/5 ML VIAL 70 MCG IV PUSH (05:30)
[2024-10-30 05:43] LABS: Basophils Absolute Auto 0.1 K/mm3 (0.0-0.1); Basophils Percent Auto 0.5 % (0.2-1.2); Eosinophils Absolute Auto 0.5 K/mm3 (0-0.3); Eosinophils Percent Auto 4.4 % (0-4.4); Immature Granulocyte Percent A 0.8 % (0-0.5); Lymphocytes Absolute Auto 1.25 K/mm3 (0.9-3.2); Lymphocytes Percent Auto 10.2 % (18.3-44.2); Mean Corpuscular Hemoglobin 27.8 pg (26-34); Mean Corpuscular Volume 92.6 fl (80-100); Mean Platelet Volume 9.8 fl (7.4-10.4); Monocytes Absolute Auto 0.8 K/mm3 (0.1-0.6); Monocytes Percent Auto 6.5 % (2.6-8.5); Neutrophils Absolute Auto 9.5 K/mm3 (1.3-6.7); Neutrophils Percent Auto 77.6 % (45.5-73.1); Platelet Count Result 185 k/mm3 (150-375); Red Blood Count 3.24 M/mm3 (4.2-5.4); Red Cell Distribution Width 17.2 % (11.5-14.5); White Blood Count 12.3 K/mm3 (4.5-10.0)
[2024-10-30 05:55] LABS: Alanine Aminotransferase 10 U/L (6-35); Albumin Level 3.7 g/dL (3.5-5.1); Alkaline Phosphatase 74 U/L (38-126); Anion Gap 6 mmol/L (4-12); Aspartate Amino Transferase 20 U/L (14-36); Bilirubin,Total 1.1 mg/dL (0.2-1.3); Blood Urea Nitrogen 35 mg/dL (7-17); Calcium 8.1 mg/dL (8.4-10.2); Carbon Dioxide 28 mmol/L (22-30); Chloride 107 mmol/L (98-107); Estimated CRCL calculation 47 ml/min; Estimated Glomerular Filt Rate 35; Glucose 89 mg/dL (65-110); Potassium 3.7 mmol/L (3.4-5.0); Sodium 141 mmol/L (137-145)
[2024-10-30] MEDS: SODIUM CHLORIDE 0.45% 1,000 ML 100 ML IV CONT (07:21)
[2024-10-30 08:19] LABS: Base Excess ABG 1.4 mEq/l (+/-2.0); Fractional Inspired Oxygen 40 %; HCO3 ABG 26.5 mEq/l (22.0-26.0); Oxygen Content ABG 14.5 %vol (16.0-22.0); Oxygen Saturation ABG 98.3 % (95.0-100.0); PO2 ABG 118.6 mmHg (80.0-100.0); PO2 FiO2 Ratio Arterial Blood 2.96 %; Total Hemoglobin 10.4 g/dL (12.0-18.0); pH ABG 7.397 (7.350-7.450)
[2024-10-30 08:20] LABS: Device VENTILATOR; Modified Allen's Test Pass; Site Drawn RIGHT RADIAL
[2024-10-30 08:21] LABS: Arterial Blood Gas PEEP 8 cmH2O; Arterial Blood Gas Tidal Volume 450 ml; Arterial Blood Gas Vent Mode CMV; Arterial Blood Gas Ventilator rate 20 /MIN
[2024-10-30] MEDS: SODIUM BICARBONATE TAB 650 MG TABLET FEED TUBE ×2 (08:47→16:23)
[2024-10-30] MEDS: PANTOPRAZOLE SODIUM IV 40 MG VIAL IV PUSH (08:47)
[2024-10-30] MEDS: ENOXAPARIN 40 MG/0.4 ML SYRINGE SUB-Q (08:47)
[2024-10-30] MEDS: POTASSIUM BICARBONATE 25 MEQ TABEF PO (08:48)
[2024-10-30] MEDS: EUCERIN CREAM 454 GM JAR 1 APPLIC TOPICAL (08:48)
[2024-10-30] MEDS: MINERAL OIL/WHITE PETROLATUM OINTMENT 1 APPLIC EACH EYE ×2 (08:48→20:57)
--- NOTE | 2024-10-30 08:50 | P.PNINT_ITS ---
Progress Note: A&P Assessment and Plan (1) Acute respiratory failure: Code(s): J96.00 - Acute respiratory failure, unspecified whether with hypoxia or hypercapnia Status: Acute Assessment and Plan: Acute Respiratory failure secondary to general anaesthesia encephalopathy and small-bowel obstruction Continue full mechanical ventilation support to prevent hypoxemia/hypercarbia and end organ damage. ABG reviewed and wean FiO2 FiO2 is a 40 Peep is currently at 8 Chest x-ray reviewed 09/29 Patient placed 5/8 PSV SBT at this time. Pt awake and following commands. RSBI was adequate. ABG showed respiratory acidosis and hypercarbia preventing extubation I suspect patient is a chronic CO2 retainer as evidenced by her morbid obesity and high bicarb on presentation. Now due to acute kidney injury she has no compensation for hypercarbia leading to acidosis. I will add per tube bicarb. Once extubated she may also need NIPPV Will also order decreased ventilation on the ventilator Continue Bronchodilators (2) Small bowel obstruction: Code(s): K56.609 - Unspecified intestinal obstruction, unspecified as to partial versus complete obstruction Status: Acute Assessment and Plan: Status post Exploratory laparotomy, lysis of adhesions, detorsion of closed loop small bowel obstruction npo. Tube feeds initiated management of surgical incision wound as per General surgery (3) VEE (acute kidney injury): Code(s): N17.9 - Acute kidney failure, unspecified Status: Acute Assessment and Plan: Patient has developed postop VEE which could be secondary to fluid shifting, as sepsis, hypovolemia Patient received IV fluid bolus in OR. She also has significant amount of ascites as per the surgeon which was drained out. Patient does have overall volume overload as evidenced by lower extremity edema and chronic venous stasis which she is likely third-spacing Creatinine is improving along with urine output Advance tube feeds and discontinue further IV fluids She received 25% albumin Her blood pressure has been adequate and she has not required any vasopressors and will be monitor Normal CK level CT scan was negative for any obstruction or stone Monitor urine output electrolytes and creatinine (4) Hypothyroidism: Code(s): E03.9 - Hypothyroidism, unspecified Status: Acute Assessment and Plan: Continue IV levothyroxine (5) Enteritis: Code(s): K52.9 - Noninfective gastroenteritis and colitis, unspecified Status: Acute Assessment and Plan: Continue Zosyn (6) Acute UTI: Code(s): N39.0 - Urinary tract infection, site not specified Status: Acute Assessment and Plan: UA suggestive of UTI. Blood cultures negative Urine cultures growing pansensitive E coli Currently on Zosyn Plan DVT prophylaxis -Lovenox Stress ulcer prophylaxis -PPI Nutrition -advance tube feeds Code Status - Full Code Total Critical Care Time - 35 minutes Due to a high probability of clinically significant, life threatening deterioration, the patient required my highest level of preparedness to intervene emergently and I personally spent this critical care time directly and personally managing the patient. This critical care time included obtaining a history; examining the patient; pulse oximetry; ordering and review of studies; arranging urgent treatment with development of a management plan; evaluation of patient's response to treatment; frequent reassessment; and discussions with other providers. It was exclusive of separately billable procedures and treating other patients and teaching time. Please see Assessment and Plan section and the rest of the note for further information on patient assessment and treatment Subjective Date/time seen: 10/30/24 Overnight events reviewed. Afebrile Continues to be on mechanical ventilation 40% FiO2 She failed weaning trial yesterday. She was started on tube feeds at 20 mL/hour. He is having bowel movements Continues to be sedated with propofol Improvement in urine output. Other Vitals acceptable Review of Systems Review of Systems: ROS unobtainable: Yes unobtainable due to endotracheal tube, unobtainable due to medical condition and unobtainable due to mental status Exam Narrative: General: Pt is sedated, intubated and on mechanical ventilation Lungs/Chest: Trachea central Coarse BS B/L, No crackles or wheezing. Cardiac: RRR. Normal S1 S2. No murmurs Circulation: Feet are warm Abdomen: Very few if any bowel sounds. Morbidly Obese. Soft. NT. ND. Incision in the midline covered with dressing Extremities: Bilateral edema and chronic venous stasis changes with dry flaky skin : Ann in place Neurologic: Sedated Moves all 4 extremities to painful stimuli. PERRL on holding sedation she follows commands with all 4 extremities nodes are head appropriately to questions Objective Data Vital Signs Vital Signs: Vital Signs - 24 hr 10/29/24 09:50 10/29/24 09:50 10/29/24 10:13 Temperature Pulse Rate 106 H 107 H 96 Respiratory Rate 27 H 24 H Blood Pressure Pulse Oximetry 95 Oxygen Delivery Mechanical Ventilation Fraction of Inspired Oxygen 40 10/29/24 10:13 10/29/24 10:00 10/29/24 11:00 Temperature 36.9 C Pulse Rate 96 97 85 Respiratory Rate 24 H 19 Blood Pressure 144/65 H Pulse Oximetry 95 95 Oxygen Delivery Mechanical Ventilation Fraction of Inspired Oxygen 40 10/29/24 12:40 10/29/24 12:00 10/29/24 12:00 Temperature 36.8 C Pulse Rate 81 81 Respiratory Rate 20 20 Blood Pressure 110/66 Pulse Oximetry 95 Oxygen Delivery Fraction of Inspired Oxygen 40 10/29/24 12:42 10/29/24 12:00 10/29/24 10:00 Temperature Pulse Rate 88 79 97 Respiratory Rate 21 H Blood Pressure Pulse Oximetry Oxygen Delivery Fraction of Inspired Oxygen 10/29/24 13:00 10/29/24 12:00 10/29/24 14:05 Temperature Pulse Rate 87 86 Respiratory Rate 20 Blood Pressure Pulse Oximetry 95 Oxygen Delivery Mechanical Ventilation Mechanical Ventilation Fraction of Inspired Oxygen 30 30 10/29/24 14:00 10/29/24 14:47 10/29/24 15:06 Temperature Pulse Rate 83 90 90 Respiratory Rate 19 18 18 Blood Pressure Pulse Oximetry Oxygen Delivery Fraction of Inspired Oxygen 10/29/24 14:00 10/29/24 14:00 10/29/24 16:00 Temperature 36.7 C 36.6 C Pulse Rate 83 83 78 Respiratory Rate 19 20 Blood Pressure 136/74 119/61 Pulse Oximetry 97 93 Oxygen Delivery Fraction of Inspired Oxygen 10/29/24 16:00 10/29/24 16:59 10/29/24 16:00 Temperature Pulse Rate 72 77 Respiratory Rate 20 Blood Pressure Pulse Oximetry 94 Oxygen Delivery Mechanical Ventilation Fraction of Inspired Oxygen 40 30 10/29/24 18:00 10/29/24 18:45 10/29/24 18:47 Temperature Pulse Rate 78 101 H 98 Respiratory Rate 19 24 H 17 Blood Pressure Pulse Oximetry Oxygen Delivery Fraction of Inspired Oxygen 10/29/24 18:58 10/29/24 16:00 10/29/24 18:00 Temperature Pulse Rate 98 76 78 Respiratory Rate 17 Blood Pressure Pulse Oximetry Oxygen Delivery Fraction of Inspired Oxygen 10/29/24 16:00 10/29/24 18:00 10/29/24 19:15 Temperature Pulse Rate 78 89 Respiratory Rate 19 Blood Pressure 157/79 H Pulse Oximetry 96 95 Oxygen Delivery Mechanical Ventilation Mechanical Ventilation Fraction of Inspired Oxygen 40 30 10/29/24 20:00 10/29/24 20:00 10/29/24 22:55 Temperature 36.6 C Pulse Rate 81 81 67 Respiratory Rate 20 20 Blood Pressure 156/81 H Pulse Oximetry 99 98 Oxygen Delivery Mechanical Ventilation Fraction of Inspired Oxygen 30 10/29/24 20:00 10/29/24 20:00 10/29/24 20:00 Temperature Pulse Rate 81 Respiratory Rate Blood Pressure Pulse Oximetry Oxygen Delivery Mechanical Ventilation Fraction of Inspired Oxygen 40 40 10/29/24 22:00 10/30/24 00:00 10/29/24 22:00 Temperature Pulse Rate 68 68 Respiratory Rate 20 Blood Pressure Pulse Oximetry Oxygen Delivery Mechanical Ventilation Fraction of Inspired Oxygen 40 10/29/24 22:00 10/30/24 00:00 10/29/24 22:00 Temperature Pulse Rate 67 66 68 Respiratory Rate 20 20 20 Blood Pressure 120/62 Pulse Oximetry 98 Oxygen Delivery Fraction of Inspired Oxygen 10/30/24 00:00 10/30/24 00:40 10/30/24 00:40 Temperature 36.7 C Pulse Rate 66 78 78 Respiratory Rate 20 23 H 23 H Blood Pressure 127/80 Pulse Oximetry 97 Oxygen Delivery Fraction of Inspired Oxygen 10/30/24 00:00 10/30/24 03:21 10/30/24 03:21 Temperature Pulse Rate 85 85 Respiratory Rate 26 H 26 H Blood Pressure Pulse Oximetry Oxygen Delivery Fraction of Inspired Oxygen 40 10/30/24 02:00 10/30/24 00:00 10/30/24 02:00 Temperature Pulse Rate 80 70 77 Respiratory Rate 20 Blood Pressure Pulse Oximetry Oxygen Delivery Fraction of Inspired Oxygen 10/30/24 02:00 10/30/24 02:02 10/30/24 04:00 Temperature 36.8 C Pulse Rate 77 72 65 Respiratory Rate 20 20 Blood Pressure 159/94 H 137/73 Pulse Oximetry 91 97 96 Oxygen Delivery Mechanical Ventilation Fraction of Inspired Oxygen 30 10/30/24 04:00 10/30/24 04:00 10/30/24 04:00 Temperature Pulse Rate 65 Respiratory Rate 20 Blood Pressure Pulse Oximetry Oxygen Delivery Mechanical Ventilation Fraction of Inspired Oxygen 40 40 10/30/24 04:00 10/30/24 05:27 10/30/24 05:31 Temperature Pulse Rate 68 56 L 49 L Respiratory Rate 20 Blood Pressure Pulse Oximetry 96 Oxygen Delivery Mechanical Ventilation Fraction of Inspired Oxygen 30 10/30/24 06:03 10/30/24 06:03 10/30/24 06:00 Temperature Pulse Rate 60 60 58 L Respiratory Rate 20 20 Blood Pressure Pulse Oximetry Oxygen Delivery Fraction of Inspired Oxygen 10/30/24 06:00 10/30/24 07:20 10/30/24 07:56 Temperature Pulse Rate 58 L 57 L 58 L Respiratory Rate 20 20 Blood Pressure 136/73 Pulse Oximetry 96 96 Oxygen Delivery Mechanical Ventilation Fraction of Inspired Oxygen 40 10/30/24 08:01 10/30/24 08:20 Temperature Pulse Rate 57 L 54 L Respiratory Rate 50 H Blood Pressure 148/79 H Pulse Oximetry 96 95 Oxygen Delivery Mechanical Ventilation Fraction of Inspired Oxygen 35 Intake/Output Intake/Output: Intake & Output 10/27/24 10/28/24 10/29/24 10/30/24 23:59 23:59 23:59 23:59 Intake Total 1838.1 3066.2 3138.3 1726.0 Output Total 913 996 8671 825 Balance 863.1 2366.2 1463.3 901.0 Meds/Results Medications: Active Medications Generic Name Dose Route Start Last Admin Trade Name Freq PRN Reason Stop Dose Admin Albuterol/Ipratropium 3 ml 10/28/24 09:44 Ipratropium 0.5 Mg/Albuterol Sulfate 2.5 Mg Ampul.Neb 3 Ml INHALATION Q6HRT PRN Wheezing Dextrose 12.5 gm 10/27/24 16:50 Dextrose 50% 25 Gm/50 Ml Syringe IV PUSH PRN PRN Hypoglycemia Protocol Enoxaparin Sodium 40 mg 10/28/24 09:00 10/30/24 08:47 Enoxaparin 40 Mg/0.4 Ml Syringe SUB-Q 40 mg DAILY YFN Administration Glucagon 1 mg 10/27/24 16:50 Glucagon For Inj 1 Mg Vial IM PRN PRN Hypoglycemia Protocol Glucose 15 gm 10/27/24 16:50 Glucose Oral Gel 15 Gm Of Glucse In 37.5 Gm Tube PO PRN PRN Hypoglycemia Protocol Hydromorphone HCl 0.5 mg 10/27/24 03:39 10/27/24 08:14 Hydromorphone Hcl Inj (*Crx) 1 Mg/Ml Syr IV PUSH 0.5 mg Q4H PRN Administration Pain Rated 7-10 Propofol 100 mls @ 27.216 mls/hr 10/27/24 16:50 10/30/24 07:56 Diprivan IV CONT 30 mcg/kg/min .Q3H41M YFN 27.22 mls/hr Titration Protocol 30 MCG/KG/MIN Dextrose 1,000 mls @ 100 mls/hr 10/27/24 16:50 Dextrose 5% 1,000 Ml IVPB PRN PRN Hypoglycemia Protocol Piperacillin/Tazobactam/Dextrose 3.375 gm in 50 mls @ 100 mls/hr 10/27/24 18:00 10/30/24 05:58 Zosyn 3.375 Gm/Ns 50 Ml IVPB Infused Q6H YFN Infusion Insulin Aspart 3 - 6 units 10/27/24 18:00 10/30/24 06:05 Insulin Aspart (*Bkc) 100 Units/Ml SUB-Q Not Given Q6HR YFN Protocol Levothyroxine Sodium 70 mcg 10/28/24 09:30 10/30/24 05:30 Levothyroxine Sodium Inj 100 Mcg/5 Ml Vial IV PUSH 70 mcg DAILY@0630 YFN Administration Multi-Ingred Cream/Lotion/Oil/Oint 1 applic 10/27/24 21:00 10/30/24 08:48 Mineral Oil/White Petrolatum Ointment EACH EYE 1 applic Q12HR YFN Administration Multi-Ingred Cream/Lotion/Oil/Oint 1 applic 10/29/24 12:30 10/30/24 08:48 Eucerin Cream 454 Gm Jar TOPICAL 1 applic DAILY YFN Administration Ondansetron HCl 4 mg 10/27/24 03:39 Ondansetron Inj 4 Mg/2 Ml Vial IV PUSH Q4H PRN Nausea Pantoprazole Sodium 40 mg 10/28/24 09:00 10/30/24 08:47 Pantoprazole Sodium Iv 40 Mg Vial IV PUSH 40 mg QAM YFN Administration Perflutren Lipid Microsphere 0 ml 10/28/24 09:27 Perflutren Lipid Microspheres 1.5 Ml Vial Diluted To 10 Ml Total Volume IV PUSH 10/31/24 09:27 ONCE PRN adequate visualization Protocol Sodium Bicarbonate 650 mg 10/30/24 09:00 10/30/24 08:47 Sodium Bicarbonate Tab 650 Mg Tablet FEED TUBE 650 mg BID YFN Administration Sodium Chloride 10 ml 10/28/24 14:00 10/30/24 05:28 Central Line Flush IV PUSH 10 ml Q8HR YFN Administration Sodium Chloride 20 ml 10/28/24 07:52 Central Line Flush IV PUSH PRN PRN after blood draws Radiology Results: ITS Impressions Abdomen/Pelvis CT 10/27/24 05:48 Impression: Multiple mildly distended small bowel is within central mesenteric hazi ness/inflammatory change. Correlate for early/partial small bowel obstruction versus possibly enteritis and reactive ileus. Cholelithiasis. Small Bowel X-Ray 10/27/24 13:04 IMPRESSION: 1. Closed-loop small bowel obstruction. ADDENDUM: 10/27/24 [id number] I called this result to Dr. Morales. Abdomen X-Ray 10/27/24 17:09 IMPRESSION: NO ACUTE ABDOMINAL FINDINGS. Possible stones in the right kidney. Chest X-Ray 10/29/24 06:18 IMPRESSION: 1. Small lung volumes with stable airspace opacities in left lower lobe, consistent with atelectasis versus pneumonia. 2. Cardiomegaly. Labs Labs: Laboratory Results - last 24 hr 10/29/24 10/29/24 10/29/24 09:35 12:23 16:41 WBC RBC Hgb Hct MCV MCH MCHC RDW Plt Count MPV Immature Gran % (Auto) Neut % (Auto) Lymph % (Auto) [place] % (Auto) Eos % (Auto) Baso % (Auto) Lymph # (Auto) [place] # (Auto) Eos # (Auto) Baso # (Auto) Abs Immat Gran (auto) Absolute Neuts (auto) Absolute Nucleated RBC Nucleated RBC % Puncture Site Artline ABG pH 7.285 L* ABG pCO2 60.7 H* ABG pO2 95.1 ABG PO2/FiO2 Ratio 2.38 ABG HCO3 28.2 H ABG O2 Saturation 96.3 ABG O2 Content 15.5 L ABG Base Excess 0.6 A-a Gradient 120.3 Oxyhemoglobin 96.6 Total Hemoglobin 11.3 L O2 Delivery Device Ventilator O2 Liters/Min 0.0 Minute Volume Not Reportable Vent Rate Not Reportable Vent Mode Spontaneous FiO2 40 Tidal Volume PEEP 8 Peak Inspir Pressure 5 Pressure Support Sodium Potassium Chloride Carbon Dioxide Anion Gap BUN Creatinine Estim Creat Clear Calc Estimated GFR Glucose POC Capillary Glucose 97 82 Calcium Total Bilirubin AST ALT Alkaline Phosphatase Total Protein Albumin Triglycerides 153 H 10/30/24 10/30/24 10/30/24 00:29 05:37 08:10 WBC 12.3 H RBC 3.24 L Hgb 9.0 L Hct 30.0 L MCV 92.6 MCH 27.8 MCHC 30.0 L RDW 17.2 H Plt Count 185 MPV 9.8 Immature Gran % (Auto) 0.8 H Neut % (Auto) 77.6 H Lymph % (Auto) 10.2 L [place] % (Auto) 6.5 Eos % (Auto) 4.4 Baso % (Auto) 0.5 Lymph # (Auto) 1.25 [place] # (Auto) 0.8 H Eos # (Auto) 0.5 H Baso # (Auto) 0.1 Abs Immat Gran (auto) 0.10 H Absolute Neuts (auto) 9.5 H Absolute Nucleated RBC 0.000 Nucleated RBC % 0.0 Puncture Site Right radial ABG pH 7.397 ABG pCO2 44.0 ABG pO2 118.6 H ABG PO2/FiO2 Ratio 2.96 ABG HCO3 26.5 H ABG O2 Saturation 98.3 ABG O2 Content 14.5 L ABG Base Excess 1.4 A-a Gradient 116.0 Oxyhemoglobin 98.0 Total Hemoglobin 10.4 L O2 Delivery Device Ventilator O2 Liters/Min Not Reportable Minute Volume Not Reportable Vent Rate 20 Vent Mode Cmv FiO2 40 Tidal Volume 450 PEEP 8 Peak Inspir Pressure Not Reportable Pressure Support Not Reportable Sodium 141 Potassium 3.7 Chloride 107 Carbon Dioxide 28 Anion Gap 6 BUN 35 H D Creatinine 1.50 H Estim Creat Clear Calc 47 Estimated GFR 35 L Glucose 89 POC Capillary Glucose 101 Calcium 8.1 L Total Bilirubin 1.1 AST 20 ALT 10 Alkaline Phosphatase 74 Total Protein 6.0 L Albumin 3.7 Triglycerides Quality VTE Prophylaxis VTE prophylaxis: mechanical ordered
[2024-10-30] MEDS: PROPOFOL IV EMULSION 100 ML 27.22 MG IV CONT ×5 (09:13→22:19)
--- NOTE | 2024-10-30 11:39 | P.PNGS_ITS ---
Progress Note: A&P Assessment and Plan (1) Acute respiratory failure: Code(s): J96.00 - Acute respiratory failure, unspecified whether with hypoxia or hypercapnia Status: Acute Assessment and Plan: continue vent management per certified rehabilitation counselor (2) Small bowel obstruction: Code(s): K56.609 - Unspecified intestinal obstruction, unspecified as to partial versus complete obstruction Status: Acute Assessment and Plan: abdominal exam largely benign, leukocytosis resolving, advance tube feeds as tolerated to goal (3) VEE (acute kidney injury): Code(s): N17.9 - Acute kidney failure, unspecified Status: Acute Assessment and Plan: improving, management per certified rehabilitation counselor team Subjective Subjective Date/Time Seen: 10/30/24 11:39 Interval history: no acute issues overnight, aimee trophic TFs, +bowel fxn Review of Systems Review of Systems: ROS unobtainable: Yes unobtainable due to endotracheal tube Exam Const: Other: intubated, sedated Resp: Auscultation: diminished lung sounds Cardio: Rate: regular rate Rhythm: regular rhythm GI: Inspection: normal to inspection, Abdominal wall edema and distended GI Palp: Yes abdominal tenderness and Yes Soft to palpation Other: incision clean dry and intact Objective Data Vital Signs Vital Signs: Vital Signs - 24 hr 10/29/24 12:40 10/29/24 12:00 10/29/24 12:00 Temperature 36.8 C Pulse Rate 81 81 Respiratory Rate 20 20 Blood Pressure 110/66 Pulse Oximetry 95 Oxygen Delivery Fraction of Inspired Oxygen 40 10/29/24 12:42 10/29/24 12:00 10/29/24 13:00 Temperature Pulse Rate 88 79 87 Respiratory Rate 21 H 20 Blood Pressure Pulse Oximetry Oxygen Delivery Fraction of Inspired Oxygen 10/29/24 12:00 10/29/24 14:05 10/29/24 14:00 Temperature Pulse Rate 86 83 Respiratory Rate 19 Blood Pressure Pulse Oximetry 95 Oxygen Delivery Mechanical Ventilation Mechanical Ventilation Fraction of Inspired Oxygen 30 30 10/29/24 14:47 10/29/24 15:06 10/29/24 14:00 Temperature Pulse Rate 90 90 83 Respiratory Rate 18 18 Blood Pressure Pulse Oximetry Oxygen Delivery Fraction of Inspired Oxygen 10/29/24 14:00 10/29/24 16:00 10/29/24 16:00 Temperature 36.7 C 36.6 C Pulse Rate 83 78 Respiratory Rate 19 20 Blood Pressure 136/74 119/61 Pulse Oximetry 97 93 Oxygen Delivery Fraction of Inspired Oxygen 40 10/29/24 16:59 10/29/24 16:00 10/29/24 18:00 Temperature Pulse Rate 72 77 78 Respiratory Rate 20 19 Blood Pressure Pulse Oximetry 94 Oxygen Delivery Mechanical Ventilation Fraction of Inspired Oxygen 30 10/29/24 18:45 10/29/24 18:47 10/29/24 18:58 Temperature Pulse Rate 101 H 98 98 Respiratory Rate 24 H 17 17 Blood Pressure Pulse Oximetry Oxygen Delivery Fraction of Inspired Oxygen 10/29/24 16:00 10/29/24 18:00 10/29/24 16:00 Temperature Pulse Rate 76 78 Respiratory Rate Blood Pressure Pulse Oximetry Oxygen Delivery Mechanical Ventilation Fraction of Inspired Oxygen 40 10/29/24 18:00 10/29/24 19:15 10/29/24 20:00 Temperature Pulse Rate 78 89 81 Respiratory Rate 19 20 Blood Pressure 157/79 H Pulse Oximetry 96 95 Oxygen Delivery Mechanical Ventilation Fraction of Inspired Oxygen 30 10/29/24 20:00 10/29/24 22:55 10/29/24 20:00 Temperature 36.6 C Pulse Rate 81 67 Respiratory Rate 20 Blood Pressure 156/81 H Pulse Oximetry 99 98 Oxygen Delivery Mechanical Ventilation Mechanical Ventilation Fraction of Inspired Oxygen 30 40 10/29/24 20:00 10/29/24 20:00 10/29/24 22:00 Temperature Pulse Rate 81 68 Respiratory Rate Blood Pressure Pulse Oximetry Oxygen Delivery Fraction of Inspired Oxygen 40 10/30/24 00:00 10/29/24 22:00 10/29/24 22:00 Temperature Pulse Rate 68 67 Respiratory Rate 20 20 Blood Pressure Pulse Oximetry Oxygen Delivery Mechanical Ventilation Fraction of Inspired Oxygen 40 10/30/24 00:00 10/29/24 22:00 10/30/24 00:00 Temperature 36.7 C Pulse Rate 66 68 66 Respiratory Rate 20 20 20 Blood Pressure 120/62 127/80 Pulse Oximetry 98 97 Oxygen Delivery Fraction of Inspired Oxygen 10/30/24 00:40 10/30/24 00:40 10/30/24 00:00 Temperature Pulse Rate 78 78 Respiratory Rate 23 H 23 H Blood Pressure Pulse Oximetry Oxygen Delivery Fraction of Inspired Oxygen 40 10/30/24 03:21 10/30/24 03:21 10/30/24 02:00 Temperature Pulse Rate 85 85 80 Respiratory Rate 26 H 26 H 20 Blood Pressure Pulse Oximetry Oxygen Delivery Fraction of Inspired Oxygen 10/30/24 00:00 10/30/24 02:00 10/30/24 02:00 Temperature Pulse Rate 70 77 77 Respiratory Rate 20 Blood Pressure 159/94 H Pulse Oximetry 91 Oxygen Delivery Fraction of Inspired Oxygen 10/30/24 02:02 10/30/24 04:00 10/30/24 04:00 Temperature 36.8 C Pulse Rate 72 65 Respiratory Rate 20 Blood Pressure 137/73 Pulse Oximetry 97 96 Oxygen Delivery Mechanical Ventilation Mechanical Ventilation Fraction of Inspired Oxygen 30 40 10/30/24 04:00 10/30/24 04:00 10/30/24 04:00 Temperature Pulse Rate 65 68 Respiratory Rate 20 Blood Pressure Pulse Oximetry Oxygen Delivery Fraction of Inspired Oxygen 40 10/30/24 05:27 10/30/24 05:31 10/30/24 06:03 Temperature Pulse Rate 56 L 49 L 60 Respiratory Rate 20 20 Blood Pressure Pulse Oximetry 96 Oxygen Delivery Mechanical Ventilation Fraction of Inspired Oxygen 30 10/30/24 06:03 10/30/24 06:00 10/30/24 06:00 Temperature Pulse Rate 60 58 L 58 L Respiratory Rate 20 20 Blood Pressure 136/73 Pulse Oximetry 96 Oxygen Delivery Fraction of Inspired Oxygen 10/30/24 07:20 10/30/24 07:56 10/30/24 08:01 Temperature Pulse Rate 57 L 58 L 57 L Respiratory Rate 20 20 Blood Pressure 148/79 H Pulse Oximetry 96 96 Oxygen Delivery Mechanical Ventilation Fraction of Inspired Oxygen 40 10/30/24 08:20 10/30/24 09:13 10/30/24 09:13 Temperature Pulse Rate 54 L 67 67 Respiratory Rate 20 20 Blood Pressure Pulse Oximetry 95 Oxygen Delivery Mechanical Ventilation Fraction of Inspired Oxygen 35 10/30/24 08:00 10/30/24 08:00 10/30/24 08:00 Temperature Pulse Rate 56 L Respiratory Rate Blood Pressure Pulse Oximetry Oxygen Delivery Mechanical Ventilation Fraction of Inspired Oxygen 35 40 10/30/24 10:18 10/30/24 10:00 10/30/24 10:00 Temperature Pulse Rate 59 L 59 L 58 L Respiratory Rate 18 18 Blood Pressure 157/81 H Pulse Oximetry 94 Oxygen Delivery Fraction of Inspired Oxygen 10/30/24 10:00 Temperature Pulse Rate 59 L Respiratory Rate Blood Pressure Pulse Oximetry 94 Oxygen Delivery Mechanical Ventilation Fraction of Inspired Oxygen 35 Intake/Output Intake/Output: Intake & Output 10/27/24 10/28/24 10/29/24 10/30/24 23:59 23:59 23:59 23:59 Intake Total 1838.1 3066.2 3138.3 1790.4 Output Total 453 459 6107 825 Balance 863.1 2366.2 1463.3 965.4 Meds/Results Medications: Active Medications Generic Name Dose Route Start Last Admin Trade Name Freq PRN Reason Stop Dose Admin Albuterol/Ipratropium 3 ml 10/28/24 09:44 Ipratropium 0.5 Mg/Albuterol Sulfate 2.5 Mg Ampul.Neb 3 Ml INHALATION Q6HRT PRN Wheezing Dextrose 12.5 gm 10/27/24 16:50 Dextrose 50% 25 Gm/50 Ml Syringe IV PUSH PRN PRN Hypoglycemia Protocol Enoxaparin Sodium 40 mg 10/28/24 09:00 10/30/24 08:47 Enoxaparin 40 Mg/0.4 Ml Syringe SUB-Q 40 mg DAILY YFN Administration Glucagon 1 mg 10/27/24 16:50 Glucagon For Inj 1 Mg Vial IM PRN PRN Hypoglycemia Protocol Glucose 15 gm 10/27/24 16:50 Glucose Oral Gel 15 Gm Of Glucse In 37.5 Gm Tube PO PRN PRN Hypoglycemia Protocol Hydromorphone HCl 0.5 mg 10/27/24 03:39 10/27/24 08:14 Hydromorphone Hcl Inj (*Crx) 1 Mg/Ml Syr IV PUSH 0.5 mg Q4H PRN Administration Pain Rated 7-10 Propofol 100 mls @ 27.216 mls/hr 10/27/24 16:50 10/30/24 10:18 Diprivan IV CONT 30 mcg/kg/min .Q3H41M YFN 27.22 mls/hr Titration Protocol 30 MCG/KG/MIN Dextrose 1,000 mls @ 100 mls/hr 10/27/24 16:50 Dextrose 5% 1,000 Ml IVPB PRN PRN Hypoglycemia Protocol Piperacillin/Tazobactam/Dextrose 3.375 gm in 50 mls @ 100 mls/hr 10/27/24 18:00 10/30/24 05:58 Zosyn 3.375 Gm/Ns 50 Ml IVPB Infused Q6H YFN Infusion Insulin Aspart 3 - 6 units 10/27/24 18:00 10/30/24 06:05 Insulin Aspart (*Bkc) 100 Units/Ml SUB-Q Not Given Q6HR YFN Protocol Levothyroxine Sodium 70 mcg 10/28/24 09:30 10/30/24 05:30 Levothyroxine Sodium Inj 100 Mcg/5 Ml Vial IV PUSH 70 mcg DAILY@0630 YFN Administration Multi-Ingred Cream/Lotion/Oil/Oint 1 applic 10/27/24 21:00 10/30/24 08:48 Mineral Oil/White Petrolatum Ointment EACH EYE 1 applic Q12HR YFN Administration Multi-Ingred Cream/Lotion/Oil/Oint 1 applic 10/29/24 12:30 10/30/24 08:48 Eucerin Cream 454 Gm Jar TOPICAL 1 applic DAILY YFN Administration Ondansetron HCl 4 mg 10/27/24 03:39 Ondansetron Inj 4 Mg/2 Ml Vial IV PUSH Q4H PRN Nausea Pantoprazole Sodium 40 mg 10/28/24 09:00 10/30/24 08:47 Pantoprazole Sodium Iv 40 Mg Vial IV PUSH 40 mg QAM YFN Administration Perflutren Lipid Microsphere 0 ml 10/28/24 09:27 Perflutren Lipid Microspheres 1.5 Ml Vial Diluted To 10 Ml Total Volume IV PUSH 10/31/24 09:27 ONCE PRN adequate visualization Protocol Sodium Bicarbonate 650 mg 10/30/24 09:00 10/30/24 08:47 Sodium Bicarbonate Tab 650 Mg Tablet FEED TUBE 650 mg BID YFN Administration Sodium Chloride 10 ml 10/28/24 14:00 10/30/24 05:28 Central Line Flush IV PUSH 10 ml Q8HR YFN Administration Sodium Chloride 20 ml 10/28/24 07:52 Central Line Flush IV PUSH PRN PRN after blood draws Radiology Results: ITS Impressions Abdomen/Pelvis CT 10/27/24 05:48 Impression: Multiple mildly distended small bowel is within central mesenteric haziness/inflammatory change. Correlate for early/partial small bowel obstruction versus possibly enteritis and reactive ileus. Cholelithiasis. Small Bowel X-Ray 10/27/24 13:04 IMPRESSION: 1. Closed-loop small bowel obstruction. ADDENDUM: 10/27/24 [id number] I called this result to Dr. Morales. Abdomen X-Ray 10/27/24 17:09 IMPRESSION: NO ACUTE ABDOMINAL FINDINGS. Possible stones in the right kidney. Chest X-Ray 10/29/24 06:18 IMPRESSION: 1. Small lung volumes with stable airspace opacities in left lower lobe, consistent with atelectasis versus pneumonia. 2. Cardiomegaly. Labs Labs: Laboratory Results - last 24 hr 10/29/24 10/29/24 10/29/24 09:35 12:23 16:41 WBC RBC Hgb Hct MCV MCH MCHC RDW Plt Count MPV Immature Gran % (Auto) Neut % (Auto) Lymph % (Auto) [place] % (Auto) Eos % (Auto) Baso % (Auto) Lymph # (Auto) [place] # (Auto) Eos # (Auto) Baso # (Auto) Abs Immat Gran (auto) Absolute Neuts (auto) Absolute Nucleated RBC Nucleated RBC % Puncture Site ABG pH ABG pCO2 ABG pO2 ABG PO2/FiO2 Ratio ABG HCO3 ABG O2 Saturation ABG O2 Content ABG Base Excess A-a Gradient Oxyhemoglobin Total Hemoglobin O2 Delivery Device O2 Liters/Min Minute Volume Vent Rate Vent Mode FiO2 Tidal Volume Not Reportable PEEP Peak Inspir Pressure Pressure Support Not Reportable Sodium Potassium Chloride Carbon Dioxide Anion Gap BUN Creatinine Estim Creat Clear Calc Estimated GFR Glucose POC Capillary Glucose 97 82 Calcium Total Bilirubin AST ALT Alkaline Phosphatase Total Protein Albumin Triglycerides 153 H 10/30/24 10/30/24 10/30/24 00:29 05:37 08:10 WBC 12.3 H RBC 3.24 L Hgb 9.0 L Hct 30.0 L MCV 92.6 MCH 27.8 MCHC 30.0 L RDW 17.2 H Plt Count 185 MPV 9.8 Immature Gran % (Auto) 0.8 H Neut % (Auto) 77.6 H Lymph % (Auto) 10.2 L [place] % (Auto) 6.5 Eos % (Auto) 4.4 Baso % (Auto) 0.5 Lymph # (Auto) 1.25 [place] # (Auto) 0.8 H Eos # (Auto) 0.5 H Baso # (Auto) 0.1 Abs Immat Gran (auto) 0.10 H Absolute Neuts (auto) 9.5 H Absolute Nucleated RBC 0.000 Nucleated RBC % 0.0 Puncture Site Right radial ABG pH 7.397 ABG pCO2 44.0 ABG pO2 118.6 H ABG PO2/FiO2 Ratio 2.96 ABG HCO3 26.5 H ABG O2 Saturation 98.3 ABG O2 Content 14.5 L ABG Base Excess 1.4 A-a Gradient 116.0 Oxyhemoglobin 98.0 Total Hemoglobin 10.4 L O2 Delivery Device Ventilator O2 Liters/Min Not Reportable Minute Volume Not Reportable Vent Rate 20 Vent Mode Cmv FiO2 40 Tidal Volume 450 PEEP 8 Peak Inspir Pressure Not Reportable Pressure Support Not Reportable Sodium 141 Potassium 3.7 Chloride 107 Carbon Dioxide 28 Anion Gap 6 BUN 35 H D Creatinine 1.50 H Estim Creat Clear Calc 47 Estimated GFR 35 L Glucose 89 POC Capillary Glucose 101 Calcium 8.1 L Total Bilirubin 1.1 AST 20 ALT 10 Alkaline Phosphatase 74 Total Protein 6.0 L Albumin 3.7 Triglycerides
[2024-10-30 12:16] LABS: Glucose Point of Care 95 mg/dl (65-105)
[2024-10-30 17:32] LABS: Glucose Point of Care 100 mg/dl (65-105)
[2024-10-31] VITALS (25 sets, daily range): BP systolic 114–179; BP diastolic 54–83; PULSE 54–88; RESP 14–28; TEMP 36.6–37.3; O2SAT 93–98
[2024-10-31 00:11] LABS: Glucose Point of Care 115 mg/dl (65-105)
[2024-10-31] MEDS: PIPERACILLN/TAZ 3.375GM/NS50ML 3.375 GM/50 ML BAG IVPB ×5 (00:11→23:45)
[2024-10-31] MEDS: PROPOFOL IV EMULSION 100 ML 27.22 MG IV CONT ×3 (02:00→09:04)
[2024-10-31] MEDS: LEVOTHYROXINE SODIUM INJ 100 MCG/5 ML VIAL 70 MCG IV PUSH (06:00)
[2024-10-31] MEDS: CENTRAL LINE FLUSH 10 ML IV PUSH ×3 (06:00→22:00)
[2024-10-31 06:32] LABS: Glucose Point of Care 100 mg/dl (65-105)
[2024-10-31 07:12] LABS: Basophils Absolute Auto 0.1 K/mm3 (0.0-0.1); Basophils Percent Auto 0.5 % (0.2-1.2); Eosinophils Absolute Auto 0.7 K/mm3 (0-0.3); Eosinophils Percent Auto 5.8 % (0-4.4); Hematocrit 33.3 % (37.0-47.0); Hemoglobin 9.9 g/dL (12.0-15.0); Immature Granulocyte Absolute 0.21 K/mm3 (0.00-0.031); Immature Granulocyte Percent A 1.6 % (0-0.5); Lymphocytes Absolute Auto 1.22 K/mm3 (0.9-3.2); Lymphocytes Percent Auto 9.5 % (18.3-44.2); Mean Corpuscular HGB Conc 29.7 g/dl (32-36); Mean Corpuscular Volume 94.1 fl (80-100); Mean Platelet Volume 10.2 fl (7.4-10.4); Monocytes Absolute Auto 0.9 K/mm3 (0.1-0.6); Monocytes Percent Auto 6.9 % (2.6-8.5); Neutrophils Absolute Auto 9.7 K/mm3 (1.3-6.7); Neutrophils Percent Auto 75.7 % (45.5-73.1); Nucleated Red Blood Cells Perc 0.2 % (0.0-0.2); Platelet Count Result 217 k/mm3 (150-375); Red Blood Count 3.54 M/mm3 (4.2-5.4); Red Cell Distribution Width 17.1 % (11.5-14.5); White Blood Count 12.8 K/mm3 (4.5-10.0)
[2024-10-31 08:04] LABS: Base Excess ABG 2.6 mEq/l (+/-2.0); HCO3 ABG 29.5 mEq/l (22.0-26.0); Oxygen Saturation ABG 93.5 % (95.0-100.0); PCO2 ABG 57.2 mmHg (35.0-45.0); PO2 ABG 73.4 mmHg (80.0-100.0); pH ABG 7.331 (7.350-7.450)
[2024-10-31 08:05] LABS: Alveolar/Arterial O2 Gradient 73.3 mmHg; Carboxyhemoglobin 0.4 % THb (0-2.0); Device VENTILATOR; Methemoglobin ABG 0.1 %THb (0-1.5); Oxygen Content ABG 14.6 %vol (16.0-22.0); Oxyhemoglobin 93.9 % THb (90.0-100.0); Reduced Hemoglobin 5.6 %THb (0-5.0)
[2024-10-31 08:06] LABS: Arterial Blood Gas PEEP 8 cmH2O; Arterial Blood Gas Tidal Volume 400 ml; Arterial Blood Gas Vent Mode CMV; Arterial Blood Gas Ventilator rate 18 /MIN; Fractional Inspired Oxygen 30 %
[2024-10-31 08:07] LABS: Alanine Aminotransferase 15 U/L (6-35); Albumin Level 3.7 g/dL (3.5-5.1); Alkaline Phosphatase 98 U/L (38-126); Anion Gap 5 mmol/L (4-12); Aspartate Amino Transferase 31 U/L (14-36); Bilirubin,Total 1.2 mg/dL (0.2-1.3); Blood Urea Nitrogen 29 mg/dL (7-17); Calcium 8.6 mg/dL (8.4-10.2); Carbon Dioxide 28 mmol/L (22-30); Chloride 110 mmol/L (98-107); Estimated CRCL calculation 58 ml/min; Estimated Glomerular Filt Rate 45; Glucose 107 mg/dL (65-110); Potassium 3.7 mmol/L (3.4-5.0); Sodium 143 mmol/L (137-145)
[2024-10-31] MEDS: ENOXAPARIN 40 MG/0.4 ML SYRINGE SUB-Q (08:58)
[2024-10-31] MEDS: PANTOPRAZOLE SODIUM IV 40 MG VIAL IV PUSH (08:58)
[2024-10-31] MEDS: SODIUM BICARBONATE TAB 650 MG TABLET FEED TUBE ×2 (08:59→17:33)
[2024-10-31] MEDS: MINERAL OIL/WHITE PETROLATUM OINTMENT 1 APPLIC EACH EYE ×2 (08:59→22:00)
[2024-10-31] MEDS: EUCERIN CREAM 454 GM JAR 1 APPLIC TOPICAL (08:59)
[2024-10-31 09:15] LABS: Anisocytosis 1+; Hypochromasia 1+; Ovalocytes 1+; Platelet Estimate Adequate (Adequate); Schistocytes None Seen
--- NOTE | 2024-10-31 11:28 | PCNFU ---
Nutrition Follow-Up Complete: Inadequate energy intake related to mechanical ventilation as evidenced by need for full tube feeding. Goal: Meet estimated protein energy needs Patient progressing towards goal. We will continue current goal. Pt current nutrition is Nepro at 50 ml/hr. Nutrition recommendation: rate to 40 ml/hr Last recorded weight is 155 kg, up from 153.5 kg on admit Bowel Motility: FMS Labs Reviewed:Cr 1.2, GFR 45, BUN 29 Meds Noted:Propofol at 25 kmok=038 kcal Skin: WNL Additional Notes: Patient remains on mechanical vent. Tube feedings are being tolerated of Nepro at 50 ml/hr. Discussions in rounds regarding overfeeding, recommend tube feeding rate change to 40 ml/hr. Tube feedings at 40 ml/hr in addition to propofol infusion 2183 kcal/ 71 gm protein/690 ml water with flush 30 ml q 4 hours. Monitoring medications, labs, weights, tube feeding tolerance, plan of care Follow up Tuesdays and Fridays per policy
--- NOTE | 2024-10-31 11:43 | PM.PNGS ---
Progress Note: A&P Assessment and Plan (1) Acute respiratory failure: Code(s): J96.00 - Acute respiratory failure, unspecified whether with hypoxia or hypercapnia Status: Acute Assessment and Plan: Continue vent management per director business systems. Will attempt breathing trial today. (2) Small bowel obstruction: Code(s): K56.609 - Unspecified intestinal obstruction, unspecified as to partial versus complete obstruction Status: Acute Assessment and Plan: S/p ex lap with adhesiolysis. Tolerating tube feedings. Continue to advance as tolerated to goal. Incision healing well. (3) VEE (acute kidney injury): Code(s): N17.9 - Acute kidney failure, unspecified Status: Acute Assessment and Plan: Continues to improve. Trend labs. Plan I have discussed the patient's case and plan of care with Dr. Moralse. Subjective Subjective Date/Time Seen: 10/31/24 11:43 Post Op day: 4 (Exploratory laparotomy, lysis of adhesions, detorsion of closed loop small bowel obstruction) Interval history: Patient intubated and sedated in the ICU. Bowels are moving. Per nursing, tolerating tube feeds. Review of Systems Review of Systems: ROS unobtainable: Yes unobtainable due to endotracheal tube Exam Const: General: no acute distress Orientation/consciousness: Other orientation findings (Sedated and intubated) GI: Inspection: distended, incision (Dry and walter intact, no erythema) and obesity GI Palp: Yes Soft to palpation, No Guarding due to palpation present (GI) and Yes Other GI palpation findings present (Exam limited due to sedation) Auscultation: normal bowel sounds Other: Rectal tube in place with liquid brown stool Objective Data Vital Signs Vital Signs: Vital Signs - 24 hr 10/30/24 12:00 10/30/24 12:00 10/30/24 12:00 Temperature 97.7 F Pulse Rate 61 Respiratory Rate 18 Blood Pressure 140/72 Pulse Oximetry 94 Oxygen Delivery Mechanical Ventilation Fraction of Inspired Oxygen 35 35 10/30/24 12:00 10/30/24 12:39 10/30/24 12:39 Temperature Pulse Rate 59 L 75 75 Respiratory Rate 19 19 Blood Pressure Pulse Oximetry Oxygen Delivery Fraction of Inspired Oxygen 10/30/24 13:10 10/30/24 14:00 10/30/24 14:00 Temperature Pulse Rate 64 56 L 56 L Respiratory Rate 18 Blood Pressure 126/62 Pulse Oximetry 92 96 Oxygen Delivery Mechanical Ventilation Fraction of Inspired Oxygen 35 10/30/24 16:00 10/30/24 16:00 10/30/24 16:00 Temperature 98.0 F Pulse Rate 62 62 Respiratory Rate 18 Blood Pressure 139/69 Pulse Oximetry 95 Oxygen Delivery Mechanical Ventilation Fraction of Inspired Oxygen 35 10/30/24 16:00 10/30/24 16:05 10/30/24 16:19 Temperature Pulse Rate 62 63 Respiratory Rate 18 Blood Pressure Pulse Oximetry 95 Oxygen Delivery Mechanical Ventilation Fraction of Inspired Oxygen 35 35 10/30/24 16:19 10/30/24 18:00 10/30/24 18:00 Temperature Pulse Rate 63 77 72 Respiratory Rate 18 18 Blood Pressure 148/70 H Pulse Oximetry Oxygen Delivery Fraction of Inspired Oxygen 10/30/24 19:23 10/30/24 19:23 10/30/24 20:00 Temperature Pulse Rate 66 66 61 Respiratory Rate 21 H 21 H 18 Blood Pressure Pulse Oximetry Oxygen Delivery Fraction of Inspired Oxygen 10/30/24 20:00 10/30/24 20:00 10/30/24 20:00 Temperature 98.7 F Pulse Rate 61 61 Respiratory Rate 18 Blood Pressure 136/61 Pulse Oximetry 97 Oxygen Delivery Mechanical Ventilation Fraction of Inspired Oxygen 35 10/30/24 20:00 10/30/24 20:10 10/30/24 22:00 Temperature Pulse Rate 59 L 63 Respiratory Rate Blood Pressure Pulse Oximetry 97 Oxygen Delivery Mechanical Ventilation Fraction of Inspired Oxygen 35 35 10/30/24 22:00 10/30/24 22:19 10/30/24 22:19 Temperature Pulse Rate 63 66 66 Respiratory Rate 18 18 18 Blood Pressure 142/68 H Pulse Oximetry 95 Oxygen Delivery Fraction of Inspired Oxygen 10/30/24 23:08 10/31/24 00:00 10/31/24 00:00 Temperature Pulse Rate 68 69 Respiratory Rate 18 Blood Pressure Pulse Oximetry 94 Oxygen Delivery Mechanical Ventilation Mechanical Ventilation Fraction of Inspired Oxygen 30 30 10/31/24 00:00 10/31/24 00:00 10/31/24 00:00 Temperature 97.9 F Pulse Rate 69 69 Respiratory Rate 18 Blood Pressure 156/68 H Pulse Oximetry 94 Oxygen Delivery Fraction of Inspired Oxygen 30 10/31/24 02:00 10/31/24 02:00 10/31/24 02:00 Temperature Pulse Rate 71 71 72 Respiratory Rate 18 18 Blood Pressure Pulse Oximetry Oxygen Delivery Fraction of Inspired Oxygen 10/31/24 02:00 10/31/24 02:04 10/31/24 04:00 Temperature Pulse Rate 72 70 Respiratory Rate 18 Blood Pressure 164/74 H Pulse Oximetry 98 98 Oxygen Delivery Mechanical Ventilation Mechanical Ventilation Fraction of Inspired Oxygen 30 30 10/31/24 04:00 10/31/24 04:00 10/31/24 04:00 Temperature 98.6 F Pulse Rate 83 83 Respiratory Rate 28 H Blood Pressure 157/83 H Pulse Oximetry 93 Oxygen Delivery Fraction of Inspired Oxygen 30 10/31/24 04:00 10/31/24 05:49 10/31/24 06:00 Temperature Pulse Rate 83 70 73 Respiratory Rate 28 H 18 Blood Pressure Pulse Oximetry Oxygen Delivery Fraction of Inspired Oxygen 10/31/24 06:00 10/31/24 07:16 10/31/24 07:46 Temperature Pulse Rate 73 70 62 Respiratory Rate 18 18 Blood Pressure 147/65 H Pulse Oximetry 94 96 Oxygen Delivery Mechanical Ventilation Fraction of Inspired Oxygen 30 10/31/24 08:00 10/31/24 08:00 10/31/24 08:00 Temperature Pulse Rate 76 76 Respiratory Rate 22 H Blood Pressure Pulse Oximetry 96 Oxygen Delivery Mechanical Ventilation Fraction of Inspired Oxygen 30 30 10/31/24 08:00 10/31/24 08:00 10/31/24 09:03 Temperature 98.4 F Pulse Rate 76 60 61 Respiratory Rate 22 H 20 Blood Pressure 159/61 H Pulse Oximetry 96 94 Oxygen Delivery Mechanical Ventilation Fraction of Inspired Oxygen 30 10/31/24 09:04 10/31/24 09:04 10/31/24 10:00 Temperature Pulse Rate 60 60 54 L Respiratory Rate 20 20 20 Blood Pressure Pulse Oximetry Oxygen Delivery Fraction of Inspired Oxygen 10/31/24 10:00 10/31/24 10:00 10/31/24 11:26 Temperature Pulse Rate 54 L 56 L 55 L Respiratory Rate 14 Blood Pressure 114/54 L Pulse Oximetry 95 95 Oxygen Delivery Mechanical Ventilation Fraction of Inspired Oxygen 30 Intake/Output Intake/Output: Intake & Output 10/28/24 10/29/24 10/30/24 10/31/24 23:59 23:59 23:59 23:59 Intake Total 3066.2 3138.3 2601.6 941.4 Output Total 700 1675 1775 1050 Balance 2366.2 1463.3 826.6 -108.6 Meds/Results Medications: Active Medications Generic Name Dose Route Start Last Admin Trade Name Freq PRN Reason Stop Dose Admin Albuterol/Ipratropium 3 ml 10/28/24 09:44 Ipratropium 0.5 Mg/Albuterol Sulfate 2.5 Mg Ampul.Neb 3 Ml INHALATION Q6HRT PRN Wheezing Dextrose 12.5 gm 10/27/24 16:50 Dextrose 50% 25 Gm/50 Ml Syringe IV PUSH PRN PRN Hypoglycemia Protocol Enoxaparin Sodium 40 mg 10/28/24 09:00 10/31/24 08:58 Enoxaparin 40 Mg/0.4 Ml Syringe SUB-Q 40 mg DAILY YFN Administration Glucagon 1 mg 10/27/24 16:50 Glucagon For Inj 1 Mg Vial IM PRN PRN Hypoglycemia Protocol Glucose 15 gm 10/27/24 16:50 Glucose Oral Gel 15 Gm Of Glucse In 37.5 Gm Tube PO PRN PRN Hypoglycemia Protocol Hydromorphone HCl 0.5 mg 10/27/24 03:39 10/27/24 08:14 Hydromorphone Hcl Inj (*Crx) 1 Mg/Ml Syr IV PUSH 0.5 mg Q4H PRN Administration Pain Rated 7-10 Propofol 100 mls @ 22.68 mls/hr 10/27/24 16:50 10/31/24 10:00 Diprivan IV CONT 25 mcg/kg/min .Q4H25M YFN 22.68 mls/hr Titration Protocol 25 MCG/KG/MIN Dextrose 1,000 mls @ 100 mls/hr 10/27/24 16:50 Dextrose 5% 1,000 Ml IVPB PRN PRN Hypoglycemia Protocol Piperacillin/Tazobactam/Dextrose 3.375 gm in 50 mls @ 100 mls/hr 10/27/24 18:00 10/31/24 07:18 Zosyn 3.375 Gm/Ns 50 Ml IVPB 11/02/24 23:59 Infused Q6H YFN Infusion Insulin Aspart 3 - 6 units 10/27/24 18:00 10/31/24 05:49 Insulin Aspart (*Bkc) 100 Units/Ml SUB-Q Not Given Q6HR [facility] Protocol Levothyroxine Sodium 70 mcg 10/28/24 09:30 10/31/24 06:00 Levothyroxine Sodium Inj 100 Mcg/5 Ml Vial IV PUSH 70 mcg DAILY@0630 YFN Administration Multi-Ingred Cream/Lotion/Oil/Oint 1 applic 10/27/24 21:00 10/31/24 08:59 Mineral Oil/White Petrolatum Ointment EACH EYE 1 applic Q12HR YFN Administration Multi-Ingred Cream/Lotion/Oil/Oint 1 applic 10/29/24 12:30 10/31/24 08:59 Eucerin Cream 454 Gm Jar TOPICAL 1 applic DAILY YFN Administration Ondansetron HCl 4 mg 10/27/24 03:39 Ondansetron Inj 4 Mg/2 Ml Vial IV PUSH Q4H PRN Nausea Pantoprazole Sodium 40 mg 10/28/24 09:00 10/31/24 08:58 Pantoprazole Sodium Iv 40 Mg Vial IV PUSH 40 mg QAM YFN Administration Sodium Bicarbonate 650 mg 10/30/24 09:00 10/31/24 08:59 Sodium Bicarbonate Tab 650 Mg Tablet FEED TUBE 650 mg BID YFN Administration Sodium Chloride 10 ml 10/28/24 14:00 10/30/24 21:00 Central Line Flush IV PUSH 10 ml Q8HR YFN Administration Sodium Chloride 20 ml 10/28/24 07:52 Central Line Flush IV PUSH PRN PRN after blood draws Radiology Results: ITS Impressions Abdomen/Pelvis CT 10/27/24 05:48 Impression: Multiple mildly distended small bowel is within central mesenteric haziness/inflammatory change. Correlate for early/partial small bowel obstruction versus possibly enteritis and reactive ileus. Cholelithiasis. Small Bowel X-Ray 10/27/24 13:04 IMPRESSION: 1. Closed-loop small bowel obstruction. ADDENDUM: 10/27/24 [id number] I called this result to Dr. Morales. Abdomen X-Ray 10/27/24 17:09 IMPRESSION: NO ACUTE ABDOMINAL FINDINGS. Possible stones in the right kidney. Chest X-Ray 10/29/24 06:18 IMPRESSION: 1. Small lung volumes with stable airspace opacities in left lower lobe, consistent with atelectasis versus pneumonia. 2. Cardiomegaly. Labs Labs: Laboratory Results - last 24 hr 12/09/24 12/09/24 12/10/24 12:13 16:38 00:04 WBC RBC Hgb Hct MCV MCH MCHC RDW Plt Count MPV Immature Gran % (Auto) Neut % (Auto) Lymph % (Auto) [place] % (Auto) Eos % (Auto) Baso % (Auto) Lymph # (Auto) [place] # (Auto) Eos # (Auto) Baso # (Auto) Abs Immat Gran (auto) Absolute Neuts (auto) Absolute Nucleated RBC Nucleated RBC % Platelet Estimate Hypochromasia Anisocytosis Ovalocytes Schistocytes Puncture Site ABG pH ABG pCO2 ABG pO2 ABG PO2/FiO2 Ratio ABG HCO3 ABG O2 Saturation ABG O2 Content ABG Base Excess A-a Gradient Oxyhemoglobin Carboxyhemoglobin Methemoglobin Reduced Hemoglobin Total Hemoglobin O2 Delivery Device O2 Liters/Min Minute Volume Vent Rate Vent Mode FiO2 Tidal Volume PEEP Peak Inspir Pressure Pressure Support Sodium Potassium Chloride Carbon Dioxide Anion Gap BUN Creatinine Estim Creat Clear Calc Estimated GFR Glucose POC Capillary Glucose 95 100 115 H Calcium Total Bilirubin AST ALT Alkaline Phosphatase Total Protein Albumin 10/31/24 10/31/24 10/31/24 05:00 05:13 05:51 WBC 12.8 H RBC 3.54 L Hgb 9.9 L Hct 33.3 L MCV 94.1 MCH 28.0 MCHC 29.7 L RDW 17.1 H Plt Count 217 MPV 10.2 Immature Gran % (Auto) 1.6 H Neut % (Auto) 75.7 H Lymph % (Auto) 9.5 L [place] % (Auto) 6.9 Eos % (Auto) 5.8 H Baso % (Auto) 0.5 Lymph # (Auto) 1.22 [place] # (Auto) 0.9 H Eos # (Auto) 0.7 H Baso # (Auto) 0.1 Abs Immat Gran (auto) 0.21 H Absolute Neuts (auto) 9.7 H Absolute Nucleated RBC 0.030 H Nucleated RBC % 0.2 Platelet Estimate Adequate Hypochromasia 1+ Anisocytosis 1+ Ovalocytes 1+ Schistocytes None seen Puncture Site Not Reportable ABG pH 7.331 L ABG pCO2 57.2 H ABG pO2 73.4 L ABG PO2/FiO2 Ratio 93.50 ABG HCO3 29.5 H ABG O2 Saturation 93.5 L ABG O2 Content 14.6 L ABG Base Excess 2.6 A-a Gradient 73.3 Oxyhemoglobin 93.9 Carboxyhemoglobin 0.4 Methemoglobin 0.1 Reduced Hemoglobin 5.6 H Total Hemoglobin 11.0 L O2 Delivery Device Ventilator O2 Liters/Min Not Reportable Minute Volume Not Reportable Vent Rate 18 Vent Mode Cmv FiO2 30 Tidal Volume 400 PEEP 8 Peak Inspir Pressure Not Reportable Pressure Support Not Reportable Sodium Potassium Chloride Carbon Dioxide Anion Gap BUN Creatinine Estim Creat Clear Calc Estimated GFR Glucose POC Capillary Glucose 100 Calcium Total Bilirubin AST ALT Alkaline Phosphatase Total Protein Albumin 10/31/24 06:30 WBC RBC Hgb Hct MCV MCH MCHC RDW Plt Count MPV Immature Gran % (Auto) Neut % (Auto) Lymph % (Auto) [place] % (Auto) Eos % (Auto) Baso % (Auto) Lymph # (Auto) [place] # (Auto) Eos # (Auto) Baso # (Auto) Abs Immat Gran (auto) Absolute Neuts (auto) Absolute Nucleated RBC Nucleated RBC % Platelet Estimate Hypochromasia Anisocytosis Ovalocytes Schistocytes Puncture Site ABG pH ABG pCO2 ABG pO2 ABG PO2/FiO2 Ratio ABG HCO3 ABG O2 Saturation ABG O2 Content ABG Base Excess A-a Gradient Oxyhemoglobin Carboxyhemoglobin Methemoglobin Reduced Hemoglobin Total Hemoglobin O2 Delivery Device O2 Liters/Min Minute Volume Vent Rate Vent Mode FiO2 Tidal Volume PEEP Peak Inspir Pressure Pressure Support Sodium 143 Potassium 3.7 Chloride 110 H Carbon Dioxide 28 Anion Gap 5 BUN 29 H Creatinine 1.20 H Estim Creat Clear Calc 58 Estimated GFR 45 L Glucose 107 POC Capillary Glucose Calcium 8.6 Total Bilirubin 1.2 AST 31 ALT 15 Alkaline Phosphatase 98 Total Protein 6.0 L Albumin 3.7
[2024-10-31 12:49] LABS: Glucose Point of Care 103 mg/dl (65-105)
--- NOTE | 2024-10-31 13:46 | WPDINTPN ---
Progress Note: A&P Assessment and Plan (1) Acute respiratory failure: Code(s): J96.00 - Acute respiratory failure, unspecified whether with hypoxia or hypercapnia Status: Acute Assessment and Plan: Acute Respiratory failure secondary to general anaesthesia encephalopathy and small-bowel obstruction Continue full mechanical ventilation support to prevent hypoxemia/hypercarbia and end organ damage. ABG reviewed and wean FiO2 Chest and ABGs reviewed x-ray reviewed ventilator adjusted, on peep of 8 in 30% FiO2, decrease rate to 20 -have asked the bedside RN to DC propofol, will place patient on SBT and evaluate for extubation -I suspect patient is a chronic CO2 retainer as evidenced by her morbid obesity and high bicarb on presentation. Now due to acute kidney injury she has no compensation for hypercarbia leading to acidosis. Bicarb per tube. Once extubated she may also need NIPPV Continue Bronchodilators (2) Small bowel obstruction: Code(s): K56.609 - Unspecified intestinal obstruction, unspecified as to partial versus complete obstruction Status: Acute Assessment and Plan: Status post Exploratory laparotomy, lysis of adhesions, detorsion of closed loop small bowel obstruction npo. Tube feeds initiated management of surgical incision wound as per General surgery (3) VEE (acute kidney injury): Code(s): N17.9 - Acute kidney failure, unspecified Status: Acute Assessment and Plan: Patient has developed postop VEE which could be secondary to fluid shifting, as sepsis, hypovolemia Patient received IV fluid bolus in OR. She also has significant amount of ascites as per the surgeon which was drained out. Patient does have overall volume overload as evidenced by lower extremity edema and chronic venous stasis which she is likely third-spacing Creatinine is improving along with urine output Advance tube feeds and discontinue further IV fluids She received 25% albumin Her blood pressure has been adequate and she has not required any vasopressors and will be monitor Normal CK level CT scan was negative for any obstruction or stone Monitor urine output electrolytes and creatinine -creatinine improving, will continue to monitor (4) Hypothyroidism: Code(s): E03.9 - Hypothyroidism, unspecified Status: Acute Assessment and Plan: Continue IV levothyroxine (5) Enteritis: Code(s): K52.9 - Noninfective gastroenteritis and colitis, unspecified Status: Acute Assessment and Plan: Continue Zosyn (6) Acute UTI: Code(s): N39.0 - Urinary tract infection, site not specified Status: Acute Assessment and Plan: UA suggestive of UTI. Blood cultures negative Urine cultures growing pansensitive E coli Currently on Zosyn Plan DVT prophylaxis -Lovenox Stress ulcer prophylaxis -PPI Nutrition -tolerating tube feeds Code Status - Full Code Total Critical Care Time - 34 minutes Due to a high probability of clinically significant, life threatening deterioration, the patient required my highest level of preparedness to intervene emergently and I personally spent this critical care time directly and personally managing the patient. This critical care time included obtaining a history; examining the patient; pulse oximetry; ordering and review of studies; arranging urgent treatment with development of a management plan; evaluation of patient's response to treatment; frequent reassessment; and discussions with other providers. It was exclusive of separately billable procedures and treating other patients and teaching time. Please see Assessment and Plan section and the rest of the note for further information on patient assessment and treatment This dictation may have been done utilizing a voice recognition system. Attempts have been made to correct errors. However, there may be uncorrected grammatical, spelling, and recognitions errors present. Subjective Date/time seen: 10/31/24 13:46 Interval history: Reason for consult: Small-bowel obstruction status post Exploratory laparotomy, lysis of adhesions, detorsion of closed loop small bowel obstruction, acute respiratory failure, acute kidney injury 10/31/2024: Patient seen examined the ICU, remains intubated on CMV mode of ventilation, peep of 8, 30% FiO2. Sedated with propofol infusion, patient opens eyes but does not follow simple commands. Urine output has been adequate, afebrile. Creatinine improving Review of Systems Review of Systems: ROS unobtainable: Yes unobtainable due to endotracheal tube, unobtainable due to medical condition and unobtainable due to mental status Exam Narrative: General: Pt is sedated, intubated and on mechanical ventilation Lungs/Chest: Trachea central Coarse BS B/L, No crackles or wheezing. Cardiac: RRR. Normal S1 S2. No murmurs Circulation: Feet are warm Abdomen: Hypoactive bowel sounds Morbidly Obese. Soft. NT. ND. Incision in the midline covered with dressing Extremities: Bilateral edema and chronic venous stasis changes with dry flaky skin : Ann in place Neurologic: Intubated, sedated. Opens her eyes but does not follow simple commands. Pupils equal and reactive, sclerae is clear Objective Data Vital Signs Vital Signs: Vital Signs - 24 hr 10/30/24 14:00 10/30/24 14:00 10/30/24 16:00 Temperature Pulse Rate 56 L 56 L 62 Respiratory Rate 18 Blood Pressure 126/62 Pulse Oximetry 96 Oxygen Delivery Fraction of Inspired Oxygen 10/30/24 16:00 10/30/24 16:00 10/30/24 16:00 Temperature 98.0 F Pulse Rate 62 Respiratory Rate 18 Blood Pressure 139/69 Pulse Oximetry 95 Oxygen Delivery Mechanical Ventilation Fraction of Inspired Oxygen 35 35 10/30/24 16:05 10/30/24 16:19 10/30/24 16:19 Temperature Pulse Rate 62 63 63 Respiratory Rate 18 18 Blood Pressure Pulse Oximetry 95 Oxygen Delivery Mechanical Ventilation Fraction of Inspired Oxygen 35 10/30/24 18:00 10/30/24 18:00 10/30/24 19:23 Temperature Pulse Rate 77 72 66 Respiratory Rate 18 21 H Blood Pressure 148/70 H Pulse Oximetry Oxygen Delivery Fraction of Inspired Oxygen 10/30/24 19:23 10/30/24 20:00 10/30/24 20:00 Temperature Pulse Rate 66 61 Respiratory Rate 21 H 18 Blood Pressure Pulse Oximetry Oxygen Delivery Mechanical Ventilation Fraction of Inspired Oxygen 35 10/30/24 20:00 10/30/24 20:00 10/30/24 20:00 Temperature 98.7 F Pulse Rate 61 61 Respiratory Rate 18 Blood Pressure 136/61 Pulse Oximetry 97 Oxygen Delivery Fraction of Inspired Oxygen 35 10/30/24 20:10 10/30/24 22:00 10/30/24 22:00 Temperature Pulse Rate 59 L 63 63 Respiratory Rate 18 Blood Pressure 142/68 H Pulse Oximetry 97 95 Oxygen Delivery Mechanical Ventilation Fraction of Inspired Oxygen 35 10/30/24 22:19 10/30/24 22:19 10/30/24 23:08 Temperature Pulse Rate 66 66 68 Respiratory Rate 18 18 Blood Pressure Pulse Oximetry 94 Oxygen Delivery Mechanical Ventilation Fraction of Inspired Oxygen 30 10/31/24 00:00 10/31/24 00:00 10/31/24 00:00 Temperature Pulse Rate 69 69 Respiratory Rate 18 Blood Pressure Pulse Oximetry Oxygen Delivery Mechanical Ventilation Fraction of Inspired Oxygen 30 10/31/24 00:00 10/31/24 00:00 10/31/24 02:00 Temperature 97.9 F Pulse Rate 69 71 Respiratory Rate 18 18 Blood Pressure 156/68 H Pulse Oximetry 94 Oxygen Delivery Fraction of Inspired Oxygen 30 10/31/24 02:00 10/31/24 02:00 10/31/24 02:00 Temperature Pulse Rate 71 72 72 Respiratory Rate 18 18 Blood Pressure 164/74 H Pulse Oximetry 98 Oxygen Delivery Fraction of Inspired Oxygen 10/31/24 02:04 10/31/24 04:00 10/31/24 04:00 Temperature Pulse Rate 70 83 Respiratory Rate Blood Pressure Pulse Oximetry 98 Oxygen Delivery Mechanical Ventilation Mechanical Ventilation Fraction of Inspired Oxygen 30 30 10/31/24 04:00 10/31/24 04:00 10/31/24 04:00 Temperature 98.6 F Pulse Rate 83 83 Respiratory Rate 28 H 28 H Blood Pressure 157/83 H Pulse Oximetry 93 Oxygen Delivery Fraction of Inspired Oxygen 30 10/31/24 05:49 10/31/24 06:00 10/31/24 06:00 Temperature Pulse Rate 70 73 73 Respiratory Rate 18 18 Blood Pressure 147/65 H Pulse Oximetry 94 Oxygen Delivery Fraction of Inspired Oxygen 10/31/24 07:16 10/31/24 07:46 10/31/24 08:00 Temperature Pulse Rate 70 62 76 Respiratory Rate 18 22 H Blood Pressure Pulse Oximetry 96 96 Oxygen Delivery Mechanical Ventilation Mechanical Ventilation Fraction of Inspired Oxygen 30 30 10/31/24 08:00 10/31/24 08:00 10/31/24 08:00 Temperature 98.4 F Pulse Rate 76 76 Respiratory Rate 22 H Blood Pressure 159/61 H Pulse Oximetry 96 Oxygen Delivery Fraction of Inspired Oxygen 30 10/31/24 08:00 10/31/24 09:03 10/31/24 09:04 Temperature Pulse Rate 60 61 60 Respiratory Rate 20 20 Blood Pressure Pulse Oximetry 94 Oxygen Delivery Mechanical Ventilation Fraction of Inspired Oxygen 30 10/31/24 09:04 10/31/24 10:00 10/31/24 10:00 Temperature Pulse Rate 60 54 L 54 L Respiratory Rate 20 20 Blood Pressure Pulse Oximetry Oxygen Delivery Fraction of Inspired Oxygen 10/31/24 10:00 10/31/24 11:26 10/31/24 12:00 Temperature Pulse Rate 56 L 55 L 55 L Respiratory Rate 14 20 Blood Pressure 114/54 L Pulse Oximetry 95 95 95 Oxygen Delivery Mechanical Ventilation Mechanical Ventilation Fraction of Inspired Oxygen 30 30 12/10/24 12:00 10/31/24 12:00 10/31/24 12:00 Temperature 98.6 F Pulse Rate 73 55 L Respiratory Rate 20 Blood Pressure 137/74 Pulse Oximetry 95 Oxygen Delivery Fraction of Inspired Oxygen 30 10/31/24 12:47 Temperature Pulse Rate 73 Respiratory Rate Blood Pressure Pulse Oximetry 95 Oxygen Delivery Mechanical Ventilation Fraction of Inspired Oxygen 30 Intake/Output Intake/Output: Intake & Output 10/28/24 10/29/24 10/30/24 10/31/24 23:59 23:59 23:59 23:59 Intake Total 3066.2 3138.3 2601.6 941.4 Output Total 700 1675 1775 1050 Balance 2366.2 1463.3 826.6 -108.6 Meds/Results Medications: Active Medications Generic Name Dose Route Start Last Admin Trade Name Freq PRN Reason Stop Dose Admin Albuterol/Ipratropium 3 ml 10/28/24 09:44 Ipratropium 0.5 Mg/Albuterol Sulfate 2.5 Mg Ampul.Neb 3 Ml INHALATION Q6HRT PRN Wheezing Dextrose 12.5 gm 10/27/24 16:50 Dextrose 50% 25 Gm/50 Ml Syringe IV PUSH PRN PRN Hypoglycemia Protocol Enoxaparin Sodium 40 mg 10/28/24 09:00 10/31/24 08:58 Enoxaparin 40 Mg/0.4 Ml Syringe SUB-Q 40 mg DAILY YFN Administration Glucagon 1 mg 10/27/24 16:50 Glucagon For Inj 1 Mg Vial IM PRN PRN Hypoglycemia Protocol Glucose 15 gm 10/27/24 16:50 Glucose Oral Gel 15 Gm Of Glucse In 37.5 Gm Tube PO PRN PRN Hypoglycemia Protocol Hydromorphone HCl 0.5 mg 10/27/24 03:39 10/27/24 08:14 Hydromorphone Hcl Inj (*Crx) 1 Mg/Ml Syr IV PUSH 0.5 mg Q4H PRN Administration Pain Rated 7-10 Propofol 100 mls @ 22.68 mls/hr 10/27/24 16:50 10/31/24 10:00 Diprivan IV CONT 25 mcg/kg/min .Q4H25M YFN 22.68 mls/hr Titration Protocol 25 MCG/KG/MIN Dextrose 1,000 mls @ 100 mls/hr 10/27/24 16:50 Dextrose 5% 1,000 Ml IVPB PRN PRN Hypoglycemia Protocol Piperacillin/Tazobactam/Dextrose 3.375 gm in 50 mls @ 100 mls/hr 10/27/24 18:00 10/31/24 12:50 Zosyn 3.375 Gm/Ns 50 Ml IVPB 11/02/24 23:59 100 mls/hr Q6H YFN Administration Insulin Aspart 3 - 6 units 10/27/24 18:00 10/31/24 12:47 Insulin Aspart (*Bkc) 100 Units/Ml SUB-Q Not Given Q6HR YFN Protocol Levothyroxine Sodium 70 mcg 10/28/24 09:30 10/31/24 06:00 Levothyroxine Sodium Inj 100 Mcg/5 Ml Vial IV PUSH 70 mcg DAILY@0630 YFN Administration Multi-Ingred Cream/Lotion/Oil/Oint 1 applic 10/27/24 21:00 10/31/24 08:59 Mineral Oil/White Petrolatum Ointment EACH EYE 1 applic Q12HR YFN Administration Multi-Ingred Cream/Lotion/Oil/Oint 1 applic 10/29/24 12:30 10/31/24 08:59 Eucerin Cream 454 Gm Jar TOPICAL 1 applic DAILY YFN Administration Ondansetron HCl 4 mg 10/27/24 03:39 Ondansetron Inj 4 Mg/2 Ml Vial IV PUSH Q4H PRN Nausea Pantoprazole Sodium 40 mg 10/28/24 09:00 10/31/24 08:58 Pantoprazole Sodium Iv 40 Mg Vial IV PUSH 40 mg QAM YFN Administration Sodium Bicarbonate 650 mg 10/30/24 09:00 10/31/24 08:59 Sodium Bicarbonate Tab 650 Mg Tablet FEED TUBE 650 mg BID YFN Administration Sodium Chloride 10 ml 10/28/24 14:00 10/30/24 21:00 Central Line Flush IV PUSH 10 ml Q8HR YFN Administration Sodium Chloride 20 ml 10/28/24 07:52 Central Line Flush IV PUSH PRN PRN after blood draws Radiology Results: ITS Impressions Abdomen/Pelvis CT 10/27/24 05:48 Impression: Multiple mildly distended small bowel is within central mesenteric haziness/inflammatory change. Correlate for early/partial small bowel obstruction versus possibly enteritis and reactive ileus. Cholelithiasis. Small Bowel X-Ray 10/27/24 13:04 IMPRESSION: 1. Closed-loop small bowel obstruction. ADDENDUM: 10/27/24 [id number] I called this result to Dr. Morales. Abdomen X-Ray 10/27/24 17:09 IMPRESSION: NO ACUTE ABDOMINAL FINDINGS. Possible stones in the right kidney. Chest X-Ray 10/29/24 06:18 IMPRESSION: 1. Small lung volumes with stable airspace opacities in left lower lobe, consistent with atelectasis versus pneumonia. 2. Cardiomegaly. Labs Labs: Laboratory Results - last 24 hr 10/30/24 10/31/24 10/31/24 16:38 00:04 05:00 WBC 12.8 H RBC 3.54 L Hgb 9.9 L Hct 33.3 L MCV 94.1 MCH 28.0 MCHC 29.7 L RDW 17.1 H Plt Count 217 MPV 10.2 Immature Gran % (Auto) 1.6 H Neut % (Auto) 75.7 H Lymph % (Auto) 9.5 L [place] % (Auto) 6.9 Eos % (Auto) 5.8 H Baso % (Auto) 0.5 Lymph # (Auto) 1.22 [place] # (Auto) 0.9 H Eos # (Auto) 0.7 H Baso # (Auto) 0.1 Abs Immat Gran (auto) 0.21 H Absolute Neuts (auto) 9.7 H Absolute Nucleated RBC 0.030 H Nucleated RBC % 0.2 Platelet Estimate Adequate Hypochromasia 1+ Anisocytosis 1+ Ovalocytes 1+ Schistocytes None seen Puncture Site ABG pH ABG pCO2 ABG pO2 ABG PO2/FiO2 Ratio ABG HCO3 ABG O2 Saturation ABG O2 Content ABG Base Excess A-a Gradient Oxyhemoglobin Carboxyhemoglobin Methemoglobin Reduced Hemoglobin Total Hemoglobin O2 Delivery Device O2 Liters/Min Minute Volume Vent Rate Vent Mode FiO2 Tidal Volume PEEP Peak Inspir Pressure Pressure Support Sodium Potassium Chloride Carbon Dioxide Anion Gap BUN Creatinine Estim Creat Clear Calc Estimated GFR Glucose POC Capillary Glucose 100 115 H Calcium Total Bilirubin AST ALT Alkaline Phosphatase Total Protein Albumin 10/31/24 10/31/24 10/31/24 05:13 05:51 06:30 WBC RBC Hgb Hct MCV MCH MCHC RDW Plt Count MPV Immature Gran % (Auto) Neut % (Auto) Lymph % (Auto) [place] % (Auto) Eos % (Auto) Baso % (Auto) Lymph # (Auto) [place] # (Auto) Eos # (Auto) Baso # (Auto) Abs Immat Gran (auto) Absolute Neuts (auto) Absolute Nucleated RBC Nucleated RBC % Platelet Estimate Hypochromasia Anisocytosis Ovalocytes Schistocytes Puncture Site Not Reportable ABG pH 7.331 L ABG pCO2 57.2 H ABG pO2 73.4 L ABG PO2/FiO2 Ratio 93.50 ABG HCO3 29.5 H ABG O2 Saturation 93.5 L ABG O2 Content 14.6 L ABG Base Excess 2.6 A-a Gradient 73.3 Oxyhemoglobin 93.9 Carboxyhemoglobin 0.4 Methemoglobin 0.1 Reduced Hemoglobin 5.6 H Total Hemoglobin 11.0 L O2 Delivery Device Ventilator O2 Liters/Min Not Reportable Minute Volume Not Reportable Vent Rate 18 Vent Mode Cmv FiO2 30 Tidal Volume 400 PEEP 8 Peak Inspir Pressure Not Reportable Pressure Support Not Reportable Sodium 143 Potassium 3.7 Chloride 110 H Carbon Dioxide 28 Anion Gap 5 BUN 29 H Creatinine 1.20 H Estim Creat Clear Calc 58 Estimated GFR 45 L Glucose 107 POC Capillary Glucose 100 Calcium 8.6 Total Bilirubin 1.2 AST 31 ALT 15 Alkaline Phosphatase 98 Total Protein 6.0 L Albumin 3.7 10/31/24 12:46 WBC RBC Hgb Hct MCV MCH MCHC RDW Plt Count MPV Immature Gran % (Auto) Neut % (Auto) Lymph % (Auto) [place] % (Auto) Eos % (Auto) Baso % (Auto) Lymph # (Auto) [place] # (Auto) Eos # (Auto) Baso # (Auto) Abs Immat Gran (auto) Absolute Neuts (auto) Absolute Nucleated RBC Nucleated RBC % Platelet Estimate Hypochromasia Anisocytosis Ovalocytes Schistocytes Puncture Site ABG pH ABG pCO2 ABG pO2 ABG PO2/FiO2 Ratio ABG HCO3 ABG O2 Saturation ABG O2 Content ABG Base Excess A-a Gradient Oxyhemoglobin Carboxyhemoglobin Methemoglobin Reduced Hemoglobin Total Hemoglobin O2 Delivery Device O2 Liters/Min Minute Volume Vent Rate Vent Mode FiO2 Tidal Volume PEEP Peak Inspir Pressure Pressure Support Sodium Potassium Chloride Carbon Dioxide Anion Gap BUN Creatinine Estim Creat Clear Calc Estimated GFR Glucose POC Capillary Glucose 103 Calcium Total Bilirubin AST ALT Alkaline Phosphatase Total Protein Albumin Quality VTE Prophylaxis VTE prophylaxis: mechanical ordered and pharmacologic ordered
[2024-10-31 17:07] LABS: Glucose Point of Care 107 mg/dl (65-105)
[2024-10-31 23:56] LABS: Glucose Point of Care 104 mg/dl (65-105)
[2024-11-01] VITALS (20 sets, daily range): BP systolic 141–164; BP diastolic 58–78; PULSE 61–619; RESP 17–27; TEMP 36.8–37.7; O2SAT 90–97
[2024-11-01 04:56] LABS: Basophils Percent Auto 0.3 % (0.2-1.2); Eosinophils Absolute Auto 0.7 K/mm3 (0-0.3); Eosinophils Percent Auto 5.8 % (0-4.4); Hematocrit 32.4 % (37.0-47.0); Immature Granulocyte Absolute 0.19 K/mm3 (0.00-0.031); Immature Granulocyte Percent A 1.7 % (0-0.5); Lymphocytes Absolute Auto 1.26 K/mm3 (0.9-3.2); Lymphocytes Percent Auto 11.2 % (18.3-44.2); Mean Corpuscular HGB Conc 30.9 g/dl (32-36); Mean Corpuscular Hemoglobin 28.2 pg (26-34); Mean Corpuscular Volume 91.3 fl (80-100); Mean Platelet Volume 9.5 fl (7.4-10.4); Monocytes Absolute Auto 0.9 K/mm3 (0.1-0.6); Monocytes Percent Auto 8.1 % (2.6-8.5); Neutrophils Absolute Auto 8.2 K/mm3 (1.3-6.7); Neutrophils Percent Auto 72.9 % (45.5-73.1); Nucleated Red Blood Cells Perc 0.2 % (0.0-0.2); Platelet Count Result 204 k/mm3 (150-375); Red Blood Count 3.55 M/mm3 (4.2-5.4); Red Cell Distribution Width 16.8 % (11.5-14.5); White Blood Count 11.3 K/mm3 (4.5-10.0)
[2024-11-01 05:04] LABS: Alveolar/Arterial O2 Gradient 82.9 mmHg; Base Excess ABG 4.1 mEq/l (+/-2.0); Carboxyhemoglobin 0.6 % THb (0-2.0); Fractional Inspired Oxygen 30 %; HCO3 ABG 29.7 mEq/l (22.0-26.0); Oxygen Content ABG 14.8 %vol (16.0-22.0); Oxygen Saturation ABG 94.3 % (95.0-100.0); Oxyhemoglobin 94.2 % THb (90.0-100.0); PCO2 ABG 49.8 mmHg (35.0-45.0); PO2 ABG 72.5 mmHg (80.0-100.0); PO2 FiO2 Ratio Arterial Blood 2.42 %; Reduced Hemoglobin 5.2 %THb (0-5.0); Total Hemoglobin 11.1 g/dL (12.0-18.0); pH ABG 7.394 (7.350-7.450)
[2024-11-01 05:05] LABS: Arterial Blood Gas PEEP 8 cmH2O; Arterial Blood Gas Vent Mode CMV; Arterial Blood Gas Ventilator rate 20 /MIN; Device VENTILATOR; Modified Allen's Test Pass; Site Drawn RIGHT RADIAL
[2024-11-01 05:06] LABS: Arterial Blood Gas Tidal Volume 400 ml
[2024-11-01 05:09] LABS: Alanine Aminotransferase 17 U/L (6-35); Albumin Level 3.2 g/dL (3.5-5.1); Alkaline Phosphatase 113 U/L (38-126); Anion Gap 1 mmol/L (4-12); Aspartate Amino Transferase 26 U/L (14-36); Bilirubin,Total 1.3 mg/dL (0.2-1.3); Blood Urea Nitrogen 22 mg/dL (7-17); Calcium 8.7 mg/dL (8.4-10.2); Carbon Dioxide 34 mmol/L (22-30); Chloride 109 mmol/L (98-107); Estimated CRCL calculation 58 ml/min; Estimated Glomerular Filt Rate 45; Glucose 104 mg/dL (65-110); Potassium 3.4 mmol/L (3.4-5.0); Sodium 144 mmol/L (137-145)
[2024-11-01] MEDS: CENTRAL LINE FLUSH 10 ML IV PUSH ×2 (05:34→20:45)
[2024-11-01] MEDS: LEVOTHYROXINE SODIUM INJ 100 MCG/5 ML VIAL 70 MCG IV PUSH (05:34)
[2024-11-01] MEDS: PIPERACILLN/TAZ 3.375GM/NS50ML 3.375 GM/50 ML BAG IVPB ×3 (05:34→23:48)
[2024-11-01] MEDS: FUROSEMIDE INJ 40 MG/4 ML VIAL IV PUSH (07:52)
[2024-11-01] MEDS: POTASSIUM CHLORIDE 20 MEQ PACKET (FOR LIQUID) 40 MEQ FEED TUBE (07:52)
[2024-11-01] MEDS: SODIUM BICARBONATE TAB 650 MG TABLET FEED TUBE (07:52)
[2024-11-01] MEDS: PANTOPRAZOLE SODIUM IV 40 MG VIAL IV PUSH (07:53)
[2024-11-01] MEDS: KCL 40 MEQ/WATER 100 ML 100 ML 25 ML IVPB (08:13)
[2024-11-01] MEDS: ENOXAPARIN 40 MG/0.4 ML SYRINGE SUB-Q (08:13)
[2024-11-01] MEDS: EUCERIN CREAM 454 GM JAR 1 APPLIC TOPICAL (08:14)
--- NOTE | 2024-11-01 08:43 | WPDINTPN ---
Progress Note: A&P Assessment and Plan (1) Acute respiratory failure: Code(s): J96.00 - Acute respiratory failure, unspecified whether with hypoxia or hypercapnia Status: Acute Assessment and Plan: Acute Respiratory failure secondary to general anaesthesia encephalopathy and small-bowel obstruction Continue full mechanical ventilation support to prevent hypoxemia/hypercarbia and end organ damage. ABG reviewed and wean FiO2 Chest and ABGs reviewed x-ray reviewed ventilator adjusted, on peep of 8 in 30% FiO2, decrease rate to 20 -patient is off all sedation, will place patient on SBT likely 08/29 in extubate to if she does well -I suspect patient is a chronic CO2 retainer as evidenced by her morbid obesity and high bicarb on presentation. Now due to acute kidney injury she has no compensation for hypercarbia leading to acidosis. Bicarb per tube. Once extubated she may also need NIPPV Continue Bronchodilators (2) Small bowel obstruction: Code(s): K56.609 - Unspecified intestinal obstruction, unspecified as to partial versus complete obstruction Status: Acute Assessment and Plan: Status post Exploratory laparotomy, lysis of adhesions, detorsion of closed loop small bowel obstruction npo. Tube feeds initiated management of surgical incision wound as per General surgery (3) VEE (acute kidney injury): Code(s): N17.9 - Acute kidney failure, unspecified Status: Acute Assessment and Plan: Patient has developed postop VEE which could be secondary to fluid shifting, as sepsis, hypovolemia Patient received IV fluid bolus in OR. She also has significant amount of ascites as per the surgeon which was drained out. Patient does have overall volume overload as evidenced by lower extremity edema and chronic venous stasis which she is likely third-spacing Creatinine is improving along with urine output Advance tube feeds and discontinue further IV fluids She received 25% albumin Her blood pressure has been adequate and she has not required any vasopressors and will be monitor Normal CK level CT scan was negative for any obstruction or stone Monitor urine output electrolytes and creatinine -creatinine improving, will continue to monitor (4) Hypothyroidism: Code(s): E03.9 - Hypothyroidism, unspecified Status: Acute Assessment and Plan: Continue IV levothyroxine (5) Enteritis: Code(s): K52.9 - Noninfective gastroenteritis and colitis, unspecified Status: Acute Assessment and Plan: Continue Zosyn (6) Acute UTI: Code(s): N39.0 - Urinary tract infection, site not specified Status: Acute Assessment and Plan: UA suggestive of UTI. Blood cultures negative Urine cultures growing pansensitive E coli Currently on Zosyn Plan DVT prophylaxis -Lovenox Stress ulcer prophylaxis -PPI Nutrition -tolerating tube feeds, currently on hold for possible extubated Code Status - Full Code Total Critical Care Time - 33 minutes Due to a high probability of clinically significant, life threatening deterioration, the patient required my highest level of preparedness to intervene emergently and I personally spent this critical care time directly and personally managing the patient. This critical care time included obtaining a history; examining the patient; pulse oximetry; ordering and review of studies; arranging urgent treatment with development of a management plan; evaluation of patient's response to treatment; frequent reassessment; and discussions with other providers. It was exclusive of separately billable procedures and treating other patients and teaching time. Please see Assessment and Plan section and the rest of the note for further information on patient assessment and treatment This dictation may have been done utilizing a voice recognition system. Attempts have been made to correct errors. However, there may be uncorrected grammatical, spelling, and recognitions errors present. Subjective Date/time seen: 11/01/24 08:43 Interval history: Reason for consult: Small-bowel obstruction status post Exploratory laparotomy, lysis of adhesions, detorsion of closed loop small bowel obstruction, acute respiratory failure, acute kidney injury 11/01/2024: Patient seen and examined in the ICU, remains intubated on CMV mode of ventilation, peep of 8, 30% FiO2. Patient is off all sedation, is awake, alert, follows simple commands and nods to questions. Chest pain, shortness of breath, abdominal pain. Hemodynamically stable. Creatinine improving, adequate urine output, afebrile Review of Systems Review of Systems: ROS unobtainable: Yes unobtainable due to endotracheal tube, unobtainable due to medical condition and unobtainable due to mental status Exam Narrative: General: Morbidly obese patient, is intubated, off sedation, in no acute distress HEENT: Pupils equal and reactive, sclera is clear Lungs/Chest: Coarse breath sounds bilaterally, decreased at bases, no wheezing, adequate air entry. Cardiac: RRR. Normal S1 S2. No murmurs Abdomen: Hypoactive bowel sounds Morbidly Obese. Soft. NT. ND. Incision in the midline covered with dressing Extremities: Bilateral edema and chronic venous stasis changes with dry flaky skin : Ann in place Neurologic: Intubated, not on any sedation, opens her eyes, nods to questions, follows simple commands in all extremities Objective Data Vital Signs Vital Signs: Vital Signs - 24 hr 10/31/24 09:03 10/31/24 09:04 10/31/24 09:04 Temperature Pulse Rate 61 60 60 Respiratory Rate 20 20 Blood Pressure Pulse Oximetry 94 Oxygen Delivery Mechanical Ventilation Fraction of Inspired Oxygen 30 10/31/24 10:00 10/31/24 10:00 10/31/24 10:00 Temperature Pulse Rate 54 L 54 L 56 L Respiratory Rate 20 14 Blood Pressure 114/54 L Pulse Oximetry 95 Oxygen Delivery Fraction of Inspired Oxygen 10/31/24 11:26 10/31/24 12:00 10/31/24 12:00 Temperature Pulse Rate 55 L 55 L 73 Respiratory Rate 20 Blood Pressure Pulse Oximetry 95 95 Oxygen Delivery Mechanical Ventilation Mechanical Ventilation Fraction of Inspired Oxygen 30 30 10/31/24 12:00 10/31/24 12:00 10/31/24 12:00 Temperature 98.6 F Pulse Rate 55 L 62 Respiratory Rate 20 19 Blood Pressure 137/74 Pulse Oximetry 95 Oxygen Delivery Fraction of Inspired Oxygen 30 10/31/24 12:47 10/31/24 14:00 10/31/24 14:00 Temperature Pulse Rate 73 87 87 Respiratory Rate 24 H Blood Pressure 171/79 H Pulse Oximetry 95 94 Oxygen Delivery Mechanical Ventilation Fraction of Inspired Oxygen 30 10/31/24 16:00 10/31/24 16:00 10/31/24 16:00 Temperature Pulse Rate 86 88 Respiratory Rate 20 Blood Pressure Pulse Oximetry 95 Oxygen Delivery Mechanical Ventilation Fraction of Inspired Oxygen 30 30 10/31/24 16:00 10/31/24 16:09 10/31/24 17:11 Temperature 98.5 F Pulse Rate 86 88 84 Respiratory Rate 20 Blood Pressure 160/75 H Pulse Oximetry 94 95 93 Oxygen Delivery Mechanical Ventilation Mechanical Ventilation Fraction of Inspired Oxygen 30 30 10/31/24 18:00 10/31/24 18:00 10/31/24 20:00 Temperature 98.9 F Pulse Rate 72 72 Respiratory Rate 18 Blood Pressure 179/74 H Pulse Oximetry 94 Oxygen Delivery Fraction of Inspired Oxygen 30 10/31/24 20:00 10/31/24 20:00 10/31/24 20:00 Temperature 99.1 F Pulse Rate 86 86 Respiratory Rate 20 Blood Pressure 164/73 H Pulse Oximetry 94 Oxygen Delivery Mechanical Ventilation Fraction of Inspired Oxygen 30 10/31/24 20:25 10/31/24 22:00 10/31/24 22:00 Temperature Pulse Rate 85 75 75 Respiratory Rate 20 Blood Pressure 148/59 H Pulse Oximetry 94 94 Oxygen Delivery Mechanical Ventilation Fraction of Inspired Oxygen 30 10/31/24 22:52 11/01/24 00:00 11/01/24 00:00 Temperature Pulse Rate 80 Respiratory Rate Blood Pressure Pulse Oximetry 95 Oxygen Delivery Mechanical Ventilation Mechanical Ventilation Fraction of Inspired Oxygen 30 30 30 11/01/24 00:00 11/01/24 00:00 11/01/24 02:00 Temperature 99.5 F Pulse Rate 68 68 65 Respiratory Rate 20 20 Blood Pressure 141/59 H 142/58 H Pulse Oximetry 93 93 Oxygen Delivery Fraction of Inspired Oxygen 11/01/24 02:00 11/01/24 02:23 11/01/24 04:00 Temperature Pulse Rate 65 65 Respiratory Rate Blood Pressure Pulse Oximetry 94 Oxygen Delivery Mechanical Ventilation Fraction of Inspired Oxygen 30 30 11/01/24 04:00 11/01/24 04:00 11/01/24 04:00 Temperature 99.8 F H Pulse Rate 64 64 Respiratory Rate 20 Blood Pressure 143/60 H Pulse Oximetry 93 Oxygen Delivery Mechanical Ventilation Fraction of Inspired Oxygen 30 11/01/24 05:07 11/01/24 06:00 11/01/24 06:00 Temperature Pulse Rate 73 81 81 Respiratory Rate 20 Blood Pressure 163/70 H Pulse Oximetry 93 94 Oxygen Delivery Mechanical Ventilation Fraction of Inspired Oxygen 30 Intake/Output Intake/Output: Intake & Output 10/29/24 10/30/24 10/31/24 11/01/24 23:59 23:59 23:59 23:59 Intake Total 3138.3 2601.6 1682.8 50 Output Total 1675 1775 2300 1225 Balance 1463.3 826.6 -617.2 -1175 Meds/Results Medications: Active Medications Generic Name Dose Route Start Last Admin Trade Name Freq PRN Reason Stop Dose Admin Albuterol/Ipratropium 3 ml 10/28/24 09:44 Ipratropium 0.5 Mg/Albuterol Sulfate 2.5 Mg Ampul.Neb 3 Ml INHALATION Q6HRT PRN Wheezing Dextrose 12.5 gm 10/27/24 16:50 Dextrose 50% 25 Gm/50 Ml Syringe IV PUSH PRN PRN Hypoglycemia Protocol Enoxaparin Sodium 40 mg 10/28/24 09:00 11/01/24 08:13 Enoxaparin 40 Mg/0.4 Ml Syringe SUB-Q 40 mg DAILY YFN Administration Glucagon 1 mg 10/27/24 16:50 Glucagon For Inj 1 Mg Vial IM PRN PRN Hypoglycemia Protocol Glucose 15 gm 10/27/24 16:50 Glucose Oral Gel 15 Gm Of Glucse In 37.5 Gm Tube PO PRN PRN Hypoglycemia Protocol Hydromorphone HCl 0.5 mg 10/27/24 03:39 10/27/24 08:14 Hydromorphone Hcl Inj (*Crx) 1 Mg/Ml Syr IV PUSH 0.5 mg Q4H PRN Administration Pain Rated 7-10 Dextrose 1,000 mls @ 100 mls/hr 10/27/24 16:50 Dextrose 5% 1,000 Ml IVPB PRN PRN Hypoglycemia Protocol Piperacillin/Tazobactam/Dextrose 3.375 gm in 50 mls @ 100 mls/hr 10/27/24 18:00 11/01/24 05:34 Zosyn 3.375 Gm/Ns 50 Ml IVPB 11/02/24 23:59 100 mls/hr Q6H YFN Administration Potassium Chloride 100 mls @ 25 mls/hr 11/01/24 07:45 11/01/24 08:13 Kcl 40 Meq/Water 100 Ml IVPB 11/01/24 11:44 25 mls/hr ONCE ONE Administration Insulin Aspart 3 - 6 units 10/27/24 18:00 11/01/24 05:33 Insulin Aspart (*Bkc) 100 Units/Ml SUB-Q Not Given Q6HR YFN Protocol Levothyroxine Sodium 70 mcg 10/28/24 09:30 11/01/24 05:34 Levothyroxine Sodium Inj 100 Mcg/5 Ml Vial IV PUSH 70 mcg DAILY@0630 YFN Administration Multi-Ingred Cream/Lotion/Oil/Oint 1 applic 10/27/24 21:00 11/01/24 07:53 Mineral Oil/White Petrolatum Ointment EACH EYE Not Given Q12HR YFN Multi-Ingred Cream/Lotion/Oil/Oint 1 applic 10/29/24 12:30 11/01/24 08:14 Eucerin Cream 454 Gm Jar TOPICAL 1 applic DAILY YFN Administration Ondansetron HCl 4 mg 10/27/24 03:39 Ondansetron Inj 4 Mg/2 Ml Vial IV PUSH Q4H PRN Nausea Pantoprazole Sodium 40 mg 10/28/24 09:00 11/01/24 07:53 Pantoprazole Sodium Iv 40 Mg Vial IV PUSH 40 mg QAM YFN Administration Sodium Bicarbonate 650 mg 10/30/24 09:00 11/01/24 07:52 Sodium Bicarbonate Tab 650 Mg Tablet FEED TUBE 650 mg BID YFN Administration Sodium Chloride 10 ml 10/28/24 14:00 11/01/24 05:34 Central Line Flush IV PUSH 10 ml Q8HR YFN Administration Sodium Chloride 20 ml 10/28/24 07:52 Central Line Flush IV PUSH PRN PRN after blood draws Radiology Results: ITS Impressions Abdomen/Pelvis CT 10/27/24 05:48 Impression: Multiple mildly distended small bowel is within central mesenteric haziness/inflammatory change. Correlate for early/partial small bowel obstruction versus possibly enteritis and reactive ileus. Cholelithiasis. Small Bowel X-Ray 10/27/24 13:04 IMPRESSION: 1. Closed-loop small bowel obstruction. ADDENDUM: 10/27/24 [id number] I called this result to Dr. Morales. Abdomen X-Ray 10/27/24 17:09 IMPRESSION: NO ACUTE ABDOMINAL FINDINGS. Possible stones in the right kidney. Chest X-Ray 11/01/24 06:23 Impression: Mild central pulmonary edema. Support tubes, as above. Labs Labs: Laboratory Results - last 24 hr 10/31/24 10/31/24 10/31/24 05:00 12:46 17:05 WBC 12.8 H RBC 3.54 L Hgb 9.9 L Hct 33.3 L MCV 94.1 MCH 28.0 MCHC 29.7 L RDW 17.1 H Plt Count 217 MPV 10.2 Immature Gran % (Auto) 1.6 H Neut % (Auto) 75.7 H Lymph % (Auto) 9.5 L Stewart % (Auto) 6.9 Eos % (Auto) 5.8 H Baso % (Auto) 0.5 Lymph # (Auto) 1.22 Stewart # (Auto) 0.9 H Eos # (Auto) 0.7 H Baso # (Auto) 0.1 Abs Immat Gran (auto) 0.21 H Absolute Neuts (auto) 9.7 H Absolute Nucleated RBC 0.030 H Nucleated RBC % 0.2 Platelet Estimate Adequate Hypochromasia 1+ Anisocytosis 1+ Ovalocytes 1+ Schistocytes None seen Puncture Site ABG pH ABG pCO2 ABG pO2 ABG PO2/FiO2 Ratio ABG HCO3 ABG O2 Saturation ABG O2 Content ABG Base Excess A-a Gradient Oxyhemoglobin Carboxyhemoglobin Methemoglobin Reduced Hemoglobin Total Hemoglobin O2 Delivery Device O2 Liters/Min Minute Volume Vent Rate Vent Mode FiO2 Tidal Volume PEEP Peak Inspir Pressure Pressure Support Sodium Potassium Chloride Carbon Dioxide Anion Gap BUN Creatinine Estim Creat Clear Calc Estimated GFR Glucose POC Capillary Glucose 103 107 H Calcium Total Bilirubin AST ALT Alkaline Phosphatase Total Protein Albumin 10/31/24 11/01/24 11/01/24 23:48 04:51 04:52 WBC 11.3 H RBC 3.55 L Hgb 10.0 L Hct 32.4 L MCV 91.3 MCH 28.2 MCHC 30.9 L RDW 16.8 H Plt Count 204 MPV 9.5 Immature Gran % (Auto) 1.7 H Neut % (Auto) 72.9 Lymph % (Auto) 11.2 L Stewart % (Auto) 8.1 Eos % (Auto) 5.8 H Baso % (Auto) 0.3 Lymph # (Auto) 1.26 Stewart # (Auto) 0.9 H Eos # (Auto) 0.7 H Baso # (Auto) 0.0 Abs Immat Gran (auto) 0.19 H Absolute Neuts (auto) 8.2 H Absolute Nucleated RBC 0.020 H Nucleated RBC % 0.2 Platelet Estimate Hypochromasia Anisocytosis Ovalocytes Schistocytes Puncture Site Right radial ABG pH 7.394 ABG pCO2 49.8 H ABG pO2 72.5 L ABG PO2/FiO2 Ratio 2.42 ABG HCO3 29.7 H ABG O2 Saturation 94.3 L ABG O2 Content 14.8 L ABG Base Excess 4.1 A-a Gradient 82.9 Oxyhemoglobin 94.2 Carboxyhemoglobin 0.6 Methemoglobin 0.0 Reduced Hemoglobin 5.2 H Total Hemoglobin 11.1 L O2 Delivery Device Ventilator O2 Liters/Min Not Reportable Minute Volume Not Reportable Vent Rate 20 Vent Mode Cmv FiO2 30 Tidal Volume 400 PEEP 8 Peak Inspir Pressure Not Reportable Pressure Support Not Reportable Sodium 144 Potassium 3.4 Chloride 109 H Carbon Dioxide 34 H Anion Gap 1 L BUN 22 H Creatinine 1.20 H Estim Creat Clear Calc 58 Estimated GFR 45 L Glucose 104 POC Capillary Glucose 104 Calcium 8.7 Total Bilirubin 1.3 AST 26 ALT 17 Alkaline Phosphatase 113 Total Protein 6.0 L Albumin 3.2 L Quality VTE Prophylaxis VTE prophylaxis: mechanical ordered and pharmacologic ordered
[2024-11-01 10:38] LABS: Alveolar/Arterial O2 Gradient 73.8 mmHg; Base Excess ABG 5.5 mEq/l (+/-2.0); Fractional Inspired Oxygen 30 %; HCO3 ABG 31.7 mEq/l (22.0-26.0); Oxygen Content ABG 15.5 %vol (16.0-22.0); Oxygen Saturation ABG 94.9 % (95.0-100.0); Oxyhemoglobin 94.6 % THb (90.0-100.0); PCO2 ABG 54.2 mmHg (35.0-45.0); PO2 ABG 76.4 mmHg (80.0-100.0); PO2 FiO2 Ratio Arterial Blood 2.55 %; Total Hemoglobin 11.6 g/dL (12.0-18.0); pH ABG 7.385 (7.350-7.450)
[2024-11-01 10:41] LABS: Device VENTILATOR; Modified Allen's Test Pass; Site Drawn RIGHT RADIAL
[2024-11-01 10:44] LABS: Arterial Blood Gas Vent Mode SPONTANEOUS
[2024-11-01 10:45] LABS: Arterial Blood Gas PEEP 8 cmH2O; Peak Inspiratory Pressure 10 cmH2O
--- NOTE | 2024-11-01 11:21 | PCFNICU ---
ICU Rounding Note: Pt current nutrition is Nepro @ 40 ml/h ON HOLD for breathing trial. May be discontinued if pt is extubated Nutrition recommendation: Resume tube feeding with formula change: Vital 1.2 @ 60 ml/h for 1584 kcal, 99 g protein, 1070 ml free water if tube feeding resumed. If pt is extubated, PO diet per speech recs Last recorded weight is 155 kg. Bowel Motility: Liquid stool output per FMS Labs Reviewed: Hgb 10.0, Hct 34.4, Alb 3.2, GFR 45, BUN 22, Cre 1.2 Meds Noted: Sedation is off. Novolog, zosyn Skin: No skin issues noted Additional Notes: Pt continues on ent, may be extubated today. Recommend formula change to Vital 1.2 to better meet protein energy needs if tube feeding is resumed. Following daily in ICU rounds. Monitoring medications, labs, weights, tube feeding tolerance, plan of care Follow up Tuesdays and Fridays per policy.
[2024-11-01 12:19] LABS: Glucose Point of Care 89 mg/dl (65-105)
--- NOTE | 2024-11-01 13:42 | PM.PNGS ---
Progress Note: A&P Assessment and Plan (1) Acute respiratory failure: Code(s): J96.00 - Acute respiratory failure, unspecified whether with hypoxia or hypercapnia Status: Acute Assessment and Plan: Continue vent management per housekeeping/laundry. Will attempt breathing trial today. (2) Small bowel obstruction: Code(s): K56.609 - Unspecified intestinal obstruction, unspecified as to partial versus complete obstruction Status: Acute Assessment and Plan: S/p ex lap with adhesiolysis. Has been tolerating tube feedings. Will be held for extubation. Once patient is extubated, if she is stable, then it is okay from our standpoint to start an oral diet when swallow has been evaluated. Incision healing well. (3) VEE (acute kidney injury): Code(s): N17.9 - Acute kidney failure, unspecified Status: Acute Plan I have discussed the patient's case and plan of care with Dr. Morales. Subjective Subjective Date/Time Seen: 11/01/24 13:42 Post Op day: 5 (Exploratory laparotomy, lysis of adhesions, detorsion of closed loop small bowel obstruction) Patient reports: afebrile Interval history: Patient intubated and sedated in ICU. Per nursing they are going to attempt extubation this morning. No acute events overnight. Review of Systems Review of Systems: ROS unobtainable: Yes unobtainable due to endotracheal tube Exam Const: Nutritional Appearance: obese Orientation/consciousness: Other orientation findings (Sedated and intubated) GI: Inspection: distended, incision (Dry and walter intact, no erythema), Pannus present and obesity GI Palp: Yes Soft to palpation and No Guarding due to palpation present (GI) Auscultation: normal bowel sounds Other: Rectal tube in place with liquid brown stool Objective Data Vital Signs Vital Signs: Vital Signs - 24 hr 10/31/24 14:00 10/31/24 14:00 10/31/24 16:00 Temperature Pulse Rate 87 87 86 Respiratory Rate 24 H 20 Blood Pressure 171/79 H Pulse Oximetry 94 95 Oxygen Delivery Mechanical Ventilation Fraction of Inspired Oxygen 30 10/31/24 16:00 10/31/24 16:00 10/31/24 16:00 Temperature 98.5 F Pulse Rate 88 86 Respiratory Rate 20 Blood Pressure 160/75 H Pulse Oximetry 94 Oxygen Delivery Fraction of Inspired Oxygen 30 10/31/24 16:09 10/31/24 17:11 10/31/24 18:00 Temperature Pulse Rate 88 84 72 Respiratory Rate Blood Pressure Pulse Oximetry 95 93 Oxygen Delivery Mechanical Ventilation Mechanical Ventilation Fraction of Inspired Oxygen 30 30 10/31/24 18:00 10/31/24 20:00 10/31/24 20:00 Temperature 98.9 F Pulse Rate 72 Respiratory Rate 18 Blood Pressure 179/74 H Pulse Oximetry 94 Oxygen Delivery Mechanical Ventilation Fraction of Inspired Oxygen 30 30 10/31/24 20:00 10/31/24 20:00 10/31/24 20:25 Temperature 99.1 F Pulse Rate 86 86 85 Respiratory Rate 20 Blood Pressure 164/73 H Pulse Oximetry 94 94 Oxygen Delivery Mechanical Ventilation Fraction of Inspired Oxygen 30 10/31/24 22:00 10/31/24 22:00 10/31/24 22:52 Temperature Pulse Rate 75 75 80 Respiratory Rate 20 Blood Pressure 148/59 H Pulse Oximetry 94 95 Oxygen Delivery Mechanical Ventilation Fraction of Inspired Oxygen 30 11/01/24 00:00 11/01/24 00:00 11/01/24 00:00 Temperature Pulse Rate 68 Respiratory Rate Blood Pressure Pulse Oximetry Oxygen Delivery Mechanical Ventilation Fraction of Inspired Oxygen 30 30 11/01/24 00:00 11/01/24 02:00 11/01/24 02:00 Temperature 99.5 F Pulse Rate 68 65 65 Respiratory Rate 20 20 Blood Pressure 141/59 H 142/58 H Pulse Oximetry 93 93 Oxygen Delivery Fraction of Inspired Oxygen 11/01/24 02:23 11/01/24 04:00 11/01/24 04:00 Temperature 99.8 F H Pulse Rate 65 64 Respiratory Rate 20 Blood Pressure 143/60 H Pulse Oximetry 94 93 Oxygen Delivery Mechanical Ventilation Fraction of Inspired Oxygen 30 30 11/01/24 04:00 11/01/24 04:00 11/01/24 05:07 Temperature Pulse Rate 64 73 Respiratory Rate Blood Pressure Pulse Oximetry 93 Oxygen Delivery Mechanical Ventilation Mechanical Ventilation Fraction of Inspired Oxygen 30 30 11/01/24 06:00 11/01/24 06:00 11/01/24 08:00 Temperature Pulse Rate 81 81 72 Respiratory Rate 20 22 H Blood Pressure 163/70 H Pulse Oximetry 94 94 Oxygen Delivery Mechanical Ventilation Fraction of Inspired Oxygen 30 11/01/24 08:00 11/01/24 08:00 11/01/24 08:00 Temperature 98.3 F Pulse Rate 72 71 Respiratory Rate 22 H Blood Pressure 152/63 H Pulse Oximetry 93 Oxygen Delivery Fraction of Inspired Oxygen 30 11/01/24 08:53 11/01/24 10:00 11/01/24 10:00 Temperature Pulse Rate 77 77 72 Respiratory Rate 22 H Blood Pressure 142/60 H Pulse Oximetry 93 94 Oxygen Delivery Mechanical Ventilation Fraction of Inspired Oxygen 30 11/01/24 10:55 11/01/24 12:00 11/01/24 12:00 Temperature Pulse Rate 69 63 69 Respiratory Rate 20 Blood Pressure Pulse Oximetry 94 94 Oxygen Delivery Mechanical Ventilation Mechanical Ventilation Fraction of Inspired Oxygen 30 30 11/01/24 12:00 11/01/24 12:00 Temperature Pulse Rate 63 Respiratory Rate 20 Blood Pressure 141/61 H Pulse Oximetry 94 Oxygen Delivery Fraction of Inspired Oxygen 30 Intake/Output Intake/Output: Intake & Output 10/29/24 10/30/24 10/31/24 11/01/24 23:59 23:59 23:59 23:59 Intake Total 3138.3 2601.6 1682.8 150 Output Total 1675 1775 2300 1225 Balance 1463.3 826.6 -617.2 -1075 Meds/Results Medications: Active Medications Generic Name Dose Route Start Last Admin Trade Name Freq PRN Reason Stop Dose Admin Albuterol/Ipratropium 3 ml 10/28/24 09:44 Ipratropium 0.5 Mg/Albuterol Sulfate 2.5 Mg Ampul.Neb 3 Ml INHALATION Q6HRT PRN Wheezing Dextrose 12.5 gm 10/27/24 16:50 Dextrose 50% 25 Gm/50 Ml Syringe IV PUSH PRN PRN Hypoglycemia Protocol Enoxaparin Sodium 40 mg 10/28/24 09:00 11/01/24 08:13 Enoxaparin 40 Mg/0.4 Ml Syringe SUB-Q 40 mg DAILY YFN Administration Glucagon 1 mg 10/27/24 16:50 Glucagon For Inj 1 Mg Vial IM PRN PRN Hypoglycemia Protocol Glucose 15 gm 10/27/24 16:50 Glucose Oral Gel 15 Gm Of Glucse In 37.5 Gm Tube PO PRN PRN Hypoglycemia Protocol Hydromorphone HCl 0.5 mg 10/27/24 03:39 10/27/24 08:14 Hydromorphone Hcl Inj (*Crx) 1 Mg/Ml Syr IV PUSH 0.5 mg Q4H PRN Administration Pain Rated 7-10 Dextrose 1,000 mls @ 100 mls/hr 10/27/24 16:50 Dextrose 5% 1,000 Ml IVPB PRN PRN Hypoglycemia Protocol Piperacillin/Tazobactam/Dextrose 3.375 gm in 50 mls @ 100 mls/hr 10/27/24 18:00 11/01/24 13:25 Zosyn 3.375 Gm/Ns 50 Ml IVPB 11/02/24 23:59 Infused Q6H YFN Infusion Insulin Aspart 3 - 6 units 10/27/24 18:00 11/01/24 12:53 Insulin Aspart (*Bkc) 100 Units/Ml SUB-Q Not Given Q6HR [facility] Protocol Levothyroxine Sodium 70 mcg 10/28/24 09:30 11/01/24 05:34 Levothyroxine Sodium Inj 100 Mcg/5 Ml Vial IV PUSH 70 mcg DAILY@0630 YFN Administration Multi-Ingred Cream/Lotion/Oil/Oint 1 applic 10/27/24 21:00 11/01/24 07:53 Mineral Oil/White Petrolatum Ointment EACH EYE Not Given Q12HR YFN Multi-Ingred Cream/Lotion/Oil/Oint 1 applic 10/29/24 12:30 11/01/24 08:14 Eucerin Cream 454 Gm Jar TOPICAL 1 applic DAILY YFN Administration Ondansetron HCl 4 mg 10/27/24 03:39 Ondansetron Inj 4 Mg/2 Ml Vial IV PUSH Q4H PRN Nausea Pantoprazole Sodium 40 mg 10/28/24 09:00 11/01/24 07:53 Pantoprazole Sodium Iv 40 Mg Vial IV PUSH 40 mg QAM YFN Administration Sodium Bicarbonate 650 mg 10/30/24 09:00 11/01/24 07:52 Sodium Bicarbonate Tab 650 Mg Tablet FEED TUBE 650 mg BID YFN Administration Sodium Chloride 10 ml 10/28/24 14:00 11/01/24 05:34 Central Line Flush IV PUSH 10 ml Q8HR YFN Administration Sodium Chloride 20 ml 10/28/24 07:52 Central Line Flush IV PUSH PRN PRN after blood draws Radiology Results: ITS Impressions Abdomen/Pelvis CT 10/27/24 05:48 Impression: Multiple mildly distended small bowel is within central mesenteric haziness/inflammatory change. Correlate for early/partial small bowel obstruction versus possibly enteritis and reactive ileus. Cholelithiasis. Small Bowel X-Ray 10/27/24 13:04 IMPRESSION: 1. Closed-loop small bowel obstruction. ADDENDUM: 10/27/24 [id number] I called this result to Dr. Morales. Abdomen X-Ray 10/27/24 17:09 IMPRESSION: NO ACUTE ABDOMINAL FINDINGS. Possible stones in the right kidney. Chest X-Ray 11/01/24 06:23 Impression: Mild central pulmonary edema. Support tubes, as above. Labs Labs: Laboratory Results - last 24 hr 10/31/24 10/31/24 11/01/24 17:05 23:48 04:51 WBC 11.3 H RBC 3.55 L Hgb 10.0 L Hct 32.4 L MCV 91.3 MCH 28.2 MCHC 30.9 L RDW 16.8 H Plt Count 204 MPV 9.5 Immature Gran % (Auto) 1.7 H Neut % (Auto) 72.9 Lymph % (Auto) 11.2 L [place] % (Auto) 8.1 Eos % (Auto) 5.8 H Baso % (Auto) 0.3 Lymph # (Auto) 1.26 [place] # (Auto) 0.9 H Eos # (Auto) 0.7 H Baso # (Auto) 0.0 Abs Immat Gran (auto) 0.19 H Absolute Neuts (auto) 8.2 H Absolute Nucleated RBC 0.020 H Nucleated RBC % 0.2 Puncture Site ABG pH ABG pCO2 ABG pO2 ABG PO2/FiO2 Ratio ABG HCO3 ABG O2 Saturation ABG O2 Content ABG Base Excess A-a Gradient Oxyhemoglobin Carboxyhemoglobin Methemoglobin Reduced Hemoglobin Total Hemoglobin O2 Delivery Device O2 Liters/Min Minute Volume Vent Rate Vent Mode FiO2 Tidal Volume PEEP Peak Inspir Pressure Pressure Support Sodium 144 Potassium 3.4 Chloride 109 H Carbon Dioxide 34 H Anion Gap 1 L BUN 22 H Creatinine 1.20 H Estim Creat Clear Calc 58 Estimated GFR 45 L Glucose 104 POC Capillary Glucose 107 H 104 Calcium 8.7 Total Bilirubin 1.3 AST 26 ALT 17 Alkaline Phosphatase 113 Total Protein 6.0 L Albumin 3.2 L 11/01/24 11/01/24 11/01/24 04:52 10:33 12:17 WBC RBC Hgb Hct MCV MCH MCHC RDW Plt Count MPV Immature Gran % (Auto) Neut % (Auto) Lymph % (Auto) [place] % (Auto) Eos % (Auto) Baso % (Auto) Lymph # (Auto) [place] # (Auto) Eos # (Auto) Baso # (Auto) Abs Immat Gran (auto) Absolute Neuts (auto) Absolute Nucleated RBC Nucleated RBC % Puncture Site Right radial Right radial ABG pH 7.394 7.385 ABG pCO2 49.8 H 54.2 H ABG pO2 72.5 L 76.4 L ABG PO2/FiO2 Ratio 2.42 2.55 ABG HCO3 29.7 H 31.7 H ABG O2 Saturation 94.3 L 94.9 L ABG O2 Content 14.8 L 15.5 L ABG Base Excess 4.1 5.5 A-a Gradient 82.9 73.8 Oxyhemoglobin 94.2 94.6 Carboxyhemoglobin 0.6 Methemoglobin 0.0 Reduced Hemoglobin 5.2 H Total Hemoglobin 11.1 L 11.6 L O2 Delivery Device Ventilator Ventilator O2 Liters/Min Not Reportable Not Reportable Minute Volume Not Reportable Not Reportable Vent Rate 20 Not Reportable Vent Mode Cmv Spontaneous FiO2 30 30 Tidal Volume 400 Not Reportable PEEP 8 8 Peak Inspir Pressure Not Reportable 10 Pressure Support Not Reportable Not Reportable Sodium Potassium Chloride Carbon Dioxide Anion Gap BUN Creatinine Estim Creat Clear Calc Estimated GFR Glucose POC Capillary Glucose 89 Calcium Total Bilirubin AST ALT Alkaline Phosphatase Total Protein Albumin
[2024-11-01 17:20] LABS: Phosphorus 2.9 mg/dL (2.5-4.5)
[2024-11-01 17:41] LABS: Glucose Point of Care 93 mg/dl (65-105)
[2024-11-01] MEDS: MINERAL OIL/WHITE PETROLATUM OINTMENT 1 APPLIC EACH EYE (20:43)
[2024-11-02] VITALS (29 sets, daily range): BP systolic 122–160; BP diastolic 54–75; PULSE 47–84; RESP 16–24; TEMP 36.7–37.7; O2SAT 90–99
[2024-11-02 00:13] LABS: Glucose Point of Care 101 mg/dl (65-105)
[2024-11-02 05:02] LABS: Basophils Absolute Auto 0.1 K/mm3 (0.0-0.1); Basophils Percent Auto 0.6 % (0.2-1.2); Eosinophils Absolute Auto 0.7 K/mm3 (0-0.3); Eosinophils Percent Auto 5.1 % (0-4.4); Hematocrit 33.9 % (37.0-47.0); Hemoglobin 10.4 g/dL (12.0-15.0); Immature Granulocyte Absolute 0.26 K/mm3 (0.00-0.031); Immature Granulocyte Percent A 2.1 % (0-0.5); Lymphocytes Absolute Auto 1.23 K/mm3 (0.9-3.2); Lymphocytes Percent Auto 9.7 % (18.3-44.2); Mean Corpuscular HGB Conc 30.7 g/dl (32-36); Mean Corpuscular Volume 91.4 fl (80-100); Mean Platelet Volume 9.3 fl (7.4-10.4); Monocytes Percent Auto 8.2 % (2.6-8.5); Neutrophils Absolute Auto 9.4 K/mm3 (1.3-6.7); Neutrophils Percent Auto 74.3 % (45.5-73.1); Nucleated Red Blood Cells Perc 0.2 % (0.0-0.2); Platelet Count Result 221 k/mm3 (150-375); Red Blood Count 3.71 M/mm3 (4.2-5.4); Red Cell Distribution Width 16.9 % (11.5-14.5); White Blood Count 12.7 K/mm3 (4.5-10.0)
[2024-11-02 05:13] LABS: Alanine Aminotransferase 20 U/L (6-35); Albumin Level 3.2 g/dL (3.5-5.1); Alkaline Phosphatase 111 U/L (38-126); Anion Gap 0 mmol/L (4-12); Aspartate Amino Transferase 29 U/L (14-36); Bilirubin,Total 1.2 mg/dL (0.2-1.3); Blood Urea Nitrogen 23 mg/dL (7-17); Calcium 8.8 mg/dL (8.4-10.2); Carbon Dioxide 36 mmol/L (22-30); Chloride 107 mmol/L (98-107); Estimated CRCL calculation 58 ml/min; Estimated Glomerular Filt Rate 45; Glucose 104 mg/dL (65-110); Potassium 3.7 mmol/L (3.4-5.0); Sodium 143 mmol/L (137-145)
[2024-11-02] MEDS: PIPERACILLN/TAZ 3.375GM/NS50ML 3.375 GM/50 ML BAG IVPB ×3 (05:35→17:21)
[2024-11-02] MEDS: CENTRAL LINE FLUSH 10 ML IV PUSH ×3 (05:35→20:00)
[2024-11-02] MEDS: LEVOTHYROXINE SODIUM INJ 100 MCG/5 ML VIAL 70 MCG IV PUSH (05:36)
[2024-11-02 06:08] LABS: Base Excess ABG 8.4 mEq/l (+/-2.0); Carboxyhemoglobin 1.5 % THb (0-2.0); Fractional Inspired Oxygen 30 %; HCO3 ABG 33.5 mEq/l (22.0-26.0); Methemoglobin ABG 0.2 %THb (0-1.5); Oxygen Content ABG 8.9 %vol (16.0-22.0); Oxygen Saturation ABG 93.2 % (95.0-100.0); Oxyhemoglobin 92.9 % THb (90.0-100.0); PCO2 ABG 51.8 mmHg (35.0-45.0); Reduced Hemoglobin 5.4 %THb (0-5.0); pH ABG 7.429 (7.350-7.450)
[2024-11-02 06:09] LABS: Total Hemoglobin 6.7 g/dL (12.0-18.0)
[2024-11-02 06:10] LABS: Arterial Blood Gas PEEP 8 cmH2O; Arterial Blood Gas Tidal Volume 400 ml; Arterial Blood Gas Vent Mode CMV; Arterial Blood Gas Ventilator rate 20 /MIN; Device VENTILATOR; Modified Allen's Test Pass; Site Drawn RIGHT RADIAL
[2024-11-02] MEDS: ENOXAPARIN 40 MG/0.4 ML SYRINGE SUB-Q (08:34)
[2024-11-02] MEDS: POTASSIUM CHLORIDE 20 MEQ PACKET (FOR LIQUID) 40 MEQ FEED TUBE (08:34)
[2024-11-02] MEDS: SODIUM BICARBONATE TAB 650 MG TABLET FEED TUBE ×2 (08:34→17:20)
[2024-11-02] MEDS: PANTOPRAZOLE SODIUM IV 40 MG VIAL IV PUSH (08:34)
[2024-11-02] MEDS: FUROSEMIDE INJ 40 MG/4 ML VIAL IV PUSH (08:34)
[2024-11-02] MEDS: EUCERIN CREAM 454 GM JAR 1 APPLIC TOPICAL (08:35)
[2024-11-02] MEDS: KCL 40 MEQ/WATER 100 ML 100 ML 25 ML IVPB (08:53)
--- NOTE | 2024-11-02 09:18 | WPDINTPN ---
Progress Note: A&P Assessment and Plan (1) Acute respiratory failure: Code(s): J96.00 - Acute respiratory failure, unspecified whether with hypoxia or hypercapnia Status: Acute Assessment and Plan: Acute Respiratory failure secondary to general anaesthesia encephalopathy and small-bowel obstruction Continue full mechanical ventilation support to prevent hypoxemia/hypercarbia and end organ damage. ABG reviewed and wean FiO2 Chest and ABGs reviewed x-ray reviewed -patient is off all sedation, will place patient on SBT likely 08/29 in extubate to if she does well -I suspect patient is a chronic CO2 retainer as evidenced by her morbid obesity and high bicarb on presentation. Now due to acute kidney injury she has no compensation for hypercarbia leading to acidosis. Bicarb per tube. Once extubated she may also need NIPPV 11/01: Tolerated SBT 08/29 for approximately 2 hours, then she was tachypneic in the upper 20s to mid 30s. RSBI had increased, patient was hypercapnic on her ABGs. Extubation was deferred 11/02: Will retry placing patient on a little higher SBT support today given her body habitus and BMI of 62.5 Continue Bronchodilators -will diurese today (2) Small bowel obstruction: Code(s): K56.609 - Unspecified intestinal obstruction, unspecified as to partial versus complete obstruction Status: Acute Assessment and Plan: Status post Exploratory laparotomy, lysis of adhesions, detorsion of closed loop small bowel obstruction npo. Tube feeds initiated management of surgical incision wound as per General surgery (3) VEE (acute kidney injury): Code(s): N17.9 - Acute kidney failure, unspecified Status: Acute Assessment and Plan: Patient has developed postop VEE which could be secondary to fluid shifting, as sepsis, hypovolemia Patient received IV fluid bolus in OR. She also has significant amount of ascites as per the surgeon which was drained out. Patient does have overall volume overload as evidenced by lower extremity edema and chronic venous stasis which she is likely third-spacing Creatinine is improving along with urine output Advance tube feeds and discontinue further IV fluids Status post albumin Her blood pressure has been adequate and she has not required any vasopressors and will be monitor Normal CK level CT scan was negative for any obstruction or stone Monitor urine output electrolytes and creatinine -creatinine improving, will continue to monitor (4) Hypothyroidism: Code(s): E03.9 - Hypothyroidism, unspecified Status: Acute Assessment and Plan: Continue IV levothyroxine (5) Enteritis: Code(s): K52.9 - Noninfective gastroenteritis and colitis, unspecified Status: Acute Assessment and Plan: Continue Zosyn (6) Acute UTI: Code(s): N39.0 - Urinary tract infection, site not specified Status: Acute Assessment and Plan: UA suggestive of UTI. Blood cultures negative Urine cultures growing pansensitive E coli Currently on Zosyn Plan DVT prophylaxis -Lovenox Stress ulcer prophylaxis -PPI Nutrition -tolerating tube feeds Code Status - Full Code Total Critical Care Time - 33 minutes Due to a high probability of clinically significant, life threatening deterioration, the patient required my highest level of preparedness to intervene emergently and I personally spent this critical care time directly and personally managing the patient. This critical care time included obtaining a history; examining the patient; pulse oximetry; ordering and review of studies; arranging urgent treatment with development of a management plan; evaluation of patient's response to treatment; frequent reassessment; and discussions with other providers. It was exclusive of separately billable procedures and treating other patients and teaching time. Please see Assessment and Plan section and the rest of the note for further information on patient assessment and treatment This dictation may have been done utilizing a voice recognition system. Attempts have been made to correct errors. However, there may be uncorrected grammatical, spelling, and recognitions errors present. Subjective Date/time seen: 11/02/24 09:18 Interval history: Reason for consult: Small-bowel obstruction status post Exploratory laparotomy, lysis of adhesions, detorsion of closed loop small bowel obstruction, acute respiratory failure, acute kidney injury 11/02/2024: Patient seen and examined the ICU, remains intubated on CMV mode of ventilation, peep of 8, 30% FiO2, patient has been off all sedation for approximately 48 hours. Patient opens her eyes, follows simple commands in all extremities. Patient was placed on SBT you yesterday 08/29, tolerated well for approximately 2 hours, then she had episodes of tachypnea with increased RSBI, ABG showed hypercapnia, extubation was deferred Patient denies any chest pain, shortness of breath, abdominal pain. Afebrile, hemodynamically stable, responded well to diuresis yesterday Review of Systems Review of Systems: ROS unobtainable: Yes unobtainable due to endotracheal tube, unobtainable due to medical condition and unobtainable due to mental status Exam Narrative: General: Morbidly obese patient, is intubated, off sedation, in no acute distress HEENT: Pupils equal and reactive, sclera is clear Lungs/Chest: Coarse breath sounds bilaterally, decreased at bases, no wheezing, adequate air entry. Cardiac: RRR. Normal S1 S2. No murmurs Abdomen: Hypoactive bowel sounds Morbidly Obese. Soft. NT. ND. Incision in the midline covered with dressing Extremities: Bilateral edema and chronic venous stasis changes with dry flaky skin : Ann in place Neurologic: Intubated, not on any sedation, opens her eyes, nods to questions, follows simple commands in all extremities Objective Data Vital Signs Vital Signs: Vital Signs - 24 hr 11/01/24 10:00 11/01/24 10:00 11/01/24 10:55 Temperature Pulse Rate 77 72 69 Respiratory Rate 22 H Blood Pressure 142/60 H Pulse Oximetry 94 94 Oxygen Delivery Mechanical Ventilation Fraction of Inspired Oxygen 30 11/01/24 12:00 11/01/24 12:00 11/01/24 12:00 Temperature Pulse Rate 63 69 Respiratory Rate 20 Blood Pressure Pulse Oximetry 94 Oxygen Delivery Mechanical Ventilation Fraction of Inspired Oxygen 30 30 11/01/24 12:00 11/01/24 14:00 11/01/24 14:00 Temperature Pulse Rate 63 69 619 H Respiratory Rate 20 21 H Blood Pressure 141/61 H 142/63 H Pulse Oximetry 94 92 Oxygen Delivery Fraction of Inspired Oxygen 11/01/24 14:11 11/01/24 16:00 11/01/24 16:00 Temperature 98.4 F Pulse Rate 70 63 88 Respiratory Rate 17 27 H Blood Pressure 159/61 H Pulse Oximetry 93 94 94 Oxygen Delivery Mechanical Ventilation Mechanical Ventilation Fraction of Inspired Oxygen 30 30 11/01/24 16:00 11/01/24 16:00 11/01/24 18:00 Temperature Pulse Rate 89 61 Respiratory Rate Blood Pressure Pulse Oximetry 94 Oxygen Delivery Mechanical Ventilation Fraction of Inspired Oxygen 30 30 11/01/24 18:59 11/01/24 20:00 11/01/24 20:00 Temperature 98.8 F Pulse Rate 68 73 72 Respiratory Rate 20 Blood Pressure 164/75 H Pulse Oximetry 97 90 Oxygen Delivery Mechanical Ventilation Fraction of Inspired Oxygen 30 11/01/24 20:00 11/01/24 20:00 11/01/24 20:30 Temperature Pulse Rate 66 Respiratory Rate Blood Pressure Pulse Oximetry 93 Oxygen Delivery Mechanical Ventilation Mechanical Ventilation Fraction of Inspired Oxygen 30 30 30 11/01/24 22:00 11/01/24 22:00 11/01/24 22:29 Temperature Pulse Rate 76 76 72 Respiratory Rate 20 Blood Pressure 159/78 H Pulse Oximetry 95 94 Oxygen Delivery Mechanical Ventilation Fraction of Inspired Oxygen 30 11/02/24 00:00 11/02/24 00:00 11/02/24 00:00 Temperature 99.9 F H Pulse Rate 72 Respiratory Rate 20 Blood Pressure 160/75 H Pulse Oximetry 99 Oxygen Delivery Mechanical Ventilation Fraction of Inspired Oxygen 30 30 11/02/24 00:00 11/02/24 02:00 11/02/24 02:00 Temperature Pulse Rate 69 67 67 Respiratory Rate 20 Blood Pressure 144/70 H Pulse Oximetry 94 Oxygen Delivery Fraction of Inspired Oxygen 11/02/24 02:20 11/02/24 04:00 11/02/24 04:00 Temperature 99.2 F Pulse Rate 59 L 63 Respiratory Rate 20 Blood Pressure 137/60 Pulse Oximetry 95 94 Oxygen Delivery Mechanical Ventilation Fraction of Inspired Oxygen 30 30 11/02/24 04:00 11/02/24 04:00 11/02/24 05:12 Temperature Pulse Rate 63 59 L Respiratory Rate Blood Pressure Pulse Oximetry 93 Oxygen Delivery Mechanical Ventilation Mechanical Ventilation Fraction of Inspired Oxygen 30 30 11/02/24 06:00 11/02/24 06:00 11/02/24 08:20 Temperature Pulse Rate 57 L 57 L 74 Respiratory Rate 20 Blood Pressure 131/62 Pulse Oximetry 93 93 Oxygen Delivery Mechanical Ventilation Fraction of Inspired Oxygen 30 11/02/24 08:51 11/02/24 09:14 Temperature Pulse Rate 81 Respiratory Rate Blood Pressure Pulse Oximetry 90 93 Oxygen Delivery Mechanical Ventilation Mechanical Ventilation Fraction of Inspired Oxygen 30 40 Intake/Output Intake/Output: Intake & Output 10/30/24 10/31/24 11/01/24 11/02/24 23:59 23:59 23:59 23:59 Intake Total 2601.6 1682.8 150 614 Output Total 1775 2300 1775 650 Balance 826.6 -617.2 -1625 -36 Meds/Results Medications: Active Medications Generic Name Dose Route Start Last Admin Trade Name Freq PRN Reason Stop Dose Admin Albuterol/Ipratropium 3 ml 10/28/24 09:44 Ipratropium 0.5 Mg/Albuterol Sulfate 2.5 Mg Ampul.Neb 3 Ml INHALATION Q6HRT PRN Wheezing Dextrose 12.5 gm 10/27/24 16:50 Dextrose 50% 25 Gm/50 Ml Syringe IV PUSH PRN PRN Hypoglycemia Protocol Enoxaparin Sodium 40 mg 10/28/24 09:00 11/02/24 08:34 Enoxaparin 40 Mg/0.4 Ml Syringe SUB-Q 40 mg DAILY YFN Administration Glucagon 1 mg 10/27/24 16:50 Glucagon For Inj 1 Mg Vial IM PRN PRN Hypoglycemia Protocol Glucose 15 gm 10/27/24 16:50 Glucose Oral Gel 15 Gm Of Glucse In 37.5 Gm Tube PO PRN PRN Hypoglycemia Protocol Hydromorphone HCl 0.5 mg 10/27/24 03:39 10/27/24 08:14 Hydromorphone Hcl Inj (*Crx) 1 Mg/Ml Syr IV PUSH 0.5 mg Q4H PRN Administration Pain Rated 7-10 Dextrose 1,000 mls @ 100 mls/hr 10/27/24 16:50 Dextrose 5% 1,000 Ml IVPB PRN PRN Hypoglycemia Protocol Piperacillin/Tazobactam/Dextrose 3.375 gm in 50 mls @ 100 mls/hr 10/27/24 18:00 11/02/24 05:35 Zosyn 3.375 Gm/Ns 50 Ml IVPB 11/02/24 23:59 100 mls/hr Q6H YFN Administration Potassium Chloride 100 mls @ 25 mls/hr 11/02/24 07:51 11/02/24 08:53 Kcl 40 Meq/Water 100 Ml IVPB 11/02/24 11:50 25 mls/hr ONCE ONE Administration Insulin Aspart 3 - 6 units 10/27/24 18:00 11/02/24 05:36 Insulin Aspart (*Bkc) 100 Units/Ml SUB-Q Not Given Q6HR YFN Protocol Levothyroxine Sodium 70 mcg 10/28/24 09:30 11/02/24 05:36 Levothyroxine Sodium Inj 100 Mcg/5 Ml Vial IV PUSH 70 mcg DAILY@0630 YFN Administration Multi-Ingred Cream/Lotion/Oil/Oint 1 applic 10/29/24 12:30 11/02/24 08:35 Eucerin Cream 454 Gm Jar TOPICAL 1 applic DAILY YFN Administration Ondansetron HCl 4 mg 10/27/24 03:39 Ondansetron Inj 4 Mg/2 Ml Vial IV PUSH Q4H PRN Nausea Pantoprazole Sodium 40 mg 10/28/24 09:00 11/02/24 08:34 Pantoprazole Sodium Iv 40 Mg Vial IV PUSH 40 mg QAM YFN Administration Sodium Bicarbonate 650 mg 10/30/24 09:00 11/02/24 08:34 Sodium Bicarbonate Tab 650 Mg Tablet FEED TUBE 650 mg BID YFN Administration Sodium Chloride 10 ml 10/28/24 14:00 11/02/24 05:35 Central Line Flush IV PUSH 10 ml Q8HR YFN Administration Sodium Chloride 20 ml 10/28/24 07:52 Central Line Flush IV PUSH PRN PRN after blood draws Radiology Results: ITS Impressions Abdomen/Pelvis CT 10/27/24 05:48 Impression: Multiple mildly distended small bowel is within central mesenteric haziness/inflammatory change. Correlate for early/partial small bowel obstruction versus possibly enteritis and reactive ileus. Cholelithiasis. Small Bowel X-Ray 10/27/24 13:04 IMPRESSION: 1. Closed-loop small bowel obstruction. ADDENDUM: 10/27/24 0081 I called this result to Dr. Morales. Abdomen X-Ray 10/27/24 17:09 IMPRESSION: NO ACUTE ABDOMINAL FINDINGS. Possible stones in the right kidney. Chest X-Ray 11/01/24 06:23 Impression: Mild central pulmonary edema. Support tubes, as above. Labs Labs: Laboratory Results - last 24 hr 11/01/24 11/01/24 11/01/24 04:51 10:33 12:17 WBC RBC Hgb Hct MCV MCH MCHC RDW Plt Count MPV Immature Gran % (Auto) Neut % (Auto) Lymph % (Auto) [place] % (Auto) Eos % (Auto) Baso % (Auto) Lymph # (Auto) [place] # (Auto) Eos # (Auto) Baso # (Auto) Abs Immat Gran (auto) Absolute Neuts (auto) Absolute Nucleated RBC Nucleated RBC % Puncture Site Right radial ABG pH 7.385 ABG pCO2 54.2 H ABG pO2 76.4 L ABG PO2/FiO2 Ratio 2.55 ABG HCO3 31.7 H ABG O2 Saturation 94.9 L ABG O2 Content 15.5 L ABG Base Excess 5.5 A-a Gradient 73.8 Oxyhemoglobin 94.6 Carboxyhemoglobin Methemoglobin Reduced Hemoglobin Total Hemoglobin 11.6 L O2 Delivery Device Ventilator O2 Liters/Min Not Reportable Minute Volume Not Reportable Vent Rate Not Reportable Vent Mode Spontaneous FiO2 30 Tidal Volume Not Reportable PEEP 8 Peak Inspir Pressure 10 Pressure Support Not Reportable Sodium Potassium Chloride Carbon Dioxide Anion Gap BUN Creatinine Estim Creat Clear Calc Estimated GFR Glucose POC Capillary Glucose 89 Calcium Phosphorus 2.9 Magnesium 2.0 Total Bilirubin AST ALT Alkaline Phosphatase Total Protein Albumin 11/01/24 11/01/24 11/02/24 17:39 23:39 04:54 WBC 12.7 H RBC 3.71 L Hgb 10.4 L Hct 33.9 L MCV 91.4 MCH 28.0 MCHC 30.7 L RDW 16.9 H Plt Count 221 MPV 9.3 Immature Gran % (Auto) 2.1 H Neut % (Auto) 74.3 H Lymph % (Auto) 9.7 L [place] % (Auto) 8.2 Eos % (Auto) 5.1 H Baso % (Auto) 0.6 Lymph # (Auto) 1.23 [place] # (Auto) 1.0 H Eos # (Auto) 0.7 H Baso # (Auto) 0.1 Abs Immat Gran (auto) 0.26 H Absolute Neuts (auto) 9.4 H Absolute Nucleated RBC 0.020 H Nucleated RBC % 0.2 Puncture Site ABG pH ABG pCO2 ABG pO2 ABG PO2/FiO2 Ratio ABG HCO3 ABG O2 Saturation ABG O2 Content ABG Base Excess A-a Gradient Oxyhemoglobin Carboxyhemoglobin Methemoglobin Reduced Hemoglobin Total Hemoglobin O2 Delivery Device O2 Liters/Min Minute Volume Vent Rate Vent Mode FiO2 Tidal Volume PEEP Peak Inspir Pressure Pressure Support Sodium 143 Potassium 3.7 Chloride 107 Carbon Dioxide 36 H Anion Gap 0 L BUN 23 H Creatinine 1.20 H Estim Creat Clear Calc 58 Estimated GFR 45 L Glucose 104 POC Capillary Glucose 93 101 Calcium 8.8 Phosphorus Magnesium Total Bilirubin 1.2 AST 29 ALT 20 Alkaline Phosphatase 111 Total Protein 6.0 L Albumin 3.2 L 11/02/24 05:17 WBC RBC Hgb Hct MCV MCH MCHC RDW Plt Count MPV Immature Gran % (Auto) Neut % (Auto) Lymph % (Auto) [place] % (Auto) Eos % (Auto) Baso % (Auto) Lymph # (Auto) [place] # (Auto) Eos # (Auto) Baso # (Auto) Abs Immat Gran (auto) Absolute Neuts (auto) Absolute Nucleated RBC Nucleated RBC % Puncture Site Right radial ABG pH 7.429 ABG pCO2 51.8 H ABG pO2 66.0 L ABG PO2/FiO2 Ratio 2.20 ABG HCO3 33.5 H ABG O2 Saturation 93.2 L ABG O2 Content 8.9 L ABG Base Excess 8.4 A-a Gradient 87.0 Oxyhemoglobin 92.9 Carboxyhemoglobin 1.5 Methemoglobin 0.2 Reduced Hemoglobin 5.4 H Total Hemoglobin 6.7 L* O2 Delivery Device Ventilator O2 Liters/Min Not Reportable Minute Volume Not Reportable Vent Rate 20 Vent Mode Cmv FiO2 30 Tidal Volume 400 PEEP 8 Peak Inspir Pressure Not Reportable Pressure Support Not Reportable Sodium Potassium Chloride Carbon Dioxide Anion Gap BUN Creatinine Estim Creat Clear Calc Estimated GFR Glucose POC Capillary Glucose Calcium Phosphorus Magnesium Total Bilirubin AST ALT Alkaline Phosphatase Total Protein Albumin Quality VTE Prophylaxis VTE prophylaxis: mechanical ordered and pharmacologic ordered
--- NOTE | 2024-11-02 10:25 | PM.PNGS ---
Progress Note: A&P Assessment and Plan (1) Small bowel obstruction: Code(s): K56.609 - Unspecified intestinal obstruction, unspecified as to partial versus complete obstruction Status: Acute Assessment and Plan: aimee TF at goal, off now for SBT, exam benign (2) Acute respiratory failure: Code(s): J96.00 - Acute respiratory failure, unspecified whether with hypoxia or hypercapnia Status: Acute Assessment and Plan: SBT today, wean/extubate as tolerated Subjective Subjective Date/Time Seen: 11/02/24 10:25 Interval history: no acute issues, more alert today, plan to SBT later today Review of Systems Review of Systems: ROS unobtainable: Yes unobtainable due to endotracheal tube Exam Const: General: cooperative, alert, ill appearing and obese Resp: Auscultation: diminished lung sounds Cardio: Rate: regular rate Rhythm: regular rhythm GI: Inspection: normal to inspection, distended and incision GI Palp: Yes abdominal tenderness, Yes Soft to palpation, Yes Tenderness to palpation present (GI), No Guarding due to palpation present (GI) and No Rigid due to palpation Other: incision C/D/I Objective Data Vital Signs Vital Signs: Vital Signs - 24 hr 11/01/24 10:55 11/01/24 12:00 11/01/24 12:00 Temperature Pulse Rate 69 63 69 Respiratory Rate 20 Blood Pressure Pulse Oximetry 94 94 Oxygen Delivery Mechanical Ventilation Mechanical Ventilation Fraction of Inspired Oxygen 30 30 11/01/24 12:00 11/01/24 12:00 11/01/24 14:00 Temperature Pulse Rate 63 69 Respiratory Rate 20 21 H Blood Pressure 141/61 H 142/63 H Pulse Oximetry 94 92 Oxygen Delivery Fraction of Inspired Oxygen 30 11/01/24 14:00 11/01/24 14:11 11/01/24 16:00 Temperature 36.9 C Pulse Rate 619 H 70 63 Respiratory Rate 17 Blood Pressure 159/61 H Pulse Oximetry 93 94 Oxygen Delivery Mechanical Ventilation Fraction of Inspired Oxygen 30 11/01/24 16:00 11/01/24 16:00 11/01/24 16:00 Temperature Pulse Rate 88 89 Respiratory Rate 27 H Blood Pressure Pulse Oximetry 94 Oxygen Delivery Mechanical Ventilation Fraction of Inspired Oxygen 30 30 11/01/24 18:00 11/01/24 18:59 11/01/24 20:00 Temperature 37.1 C Pulse Rate 61 68 73 Respiratory Rate 20 Blood Pressure 164/75 H Pulse Oximetry 94 97 90 Oxygen Delivery Mechanical Ventilation Mechanical Ventilation Fraction of Inspired Oxygen 30 30 11/01/24 20:00 11/01/24 20:00 11/01/24 20:00 Temperature Pulse Rate 72 Respiratory Rate Blood Pressure Pulse Oximetry Oxygen Delivery Mechanical Ventilation Fraction of Inspired Oxygen 30 30 11/01/24 20:30 11/01/24 22:00 11/01/24 22:00 Temperature Pulse Rate 66 76 76 Respiratory Rate 20 Blood Pressure 159/78 H Pulse Oximetry 93 95 Oxygen Delivery Mechanical Ventilation Fraction of Inspired Oxygen 30 11/01/24 22:29 11/02/24 00:00 11/02/24 00:00 Temperature 37.7 C H Pulse Rate 72 72 Respiratory Rate 20 Blood Pressure 160/75 H Pulse Oximetry 94 99 Oxygen Delivery Mechanical Ventilation Fraction of Inspired Oxygen 30 30 11/02/24 00:00 11/02/24 00:00 11/02/24 02:00 Temperature Pulse Rate 69 67 Respiratory Rate 20 Blood Pressure 144/70 H Pulse Oximetry 94 Oxygen Delivery Mechanical Ventilation Fraction of Inspired Oxygen 30 11/02/24 02:00 11/02/24 02:20 11/02/24 04:00 Temperature 37.3 C Pulse Rate 67 59 L 63 Respiratory Rate 20 Blood Pressure 137/60 Pulse Oximetry 95 94 Oxygen Delivery Mechanical Ventilation Fraction of Inspired Oxygen 30 11/02/24 04:00 11/02/24 04:00 11/02/24 04:00 Temperature Pulse Rate 63 Respiratory Rate Blood Pressure Pulse Oximetry Oxygen Delivery Mechanical Ventilation Fraction of Inspired Oxygen 30 30 11/02/24 05:12 11/02/24 06:00 11/02/24 06:00 Temperature Pulse Rate 59 L 57 L 57 L Respiratory Rate 20 Blood Pressure 131/62 Pulse Oximetry 93 93 Oxygen Delivery Mechanical Ventilation Fraction of Inspired Oxygen 30 11/02/24 08:00 11/02/24 08:00 11/02/24 08:00 Temperature Pulse Rate 57 L Respiratory Rate Blood Pressure Pulse Oximetry Oxygen Delivery Mechanical Ventilation Fraction of Inspired Oxygen 30 30 11/02/24 08:00 11/02/24 08:20 11/02/24 08:51 Temperature 37.1 C Pulse Rate 57 L 74 81 Respiratory Rate 20 Blood Pressure 123/56 L Pulse Oximetry 93 93 90 Oxygen Delivery Mechanical Ventilation Mechanical Ventilation Fraction of Inspired Oxygen 30 30 11/02/24 09:14 11/02/24 10:00 11/02/24 10:00 Temperature Pulse Rate 50 L 47 L Respiratory Rate 16 Blood Pressure 131/60 Pulse Oximetry 93 96 Oxygen Delivery Mechanical Ventilation Fraction of Inspired Oxygen 40 Intake/Output Intake/Output: Intake & Output 10/30/24 10/31/24 11/01/24 11/02/24 23:59 23:59 23:59 23:59 Intake Total 2601.6 1682.8 150 614 Output Total 1775 2300 1775 650 Balance 826.6 -617.2 -1625 -36 Meds/Results Medications: Active Medications Generic Name Dose Route Start Last Admin Trade Name Freq PRN Reason Stop Dose Admin Albuterol/Ipratropium 3 ml 11/02/24 14:00 Ipratropium 0.5 Mg/Albuterol Sulfate 2.5 Mg Ampul.Neb 3 Ml INHALATION Q6HRT YFN Dextrose 12.5 gm 10/27/24 16:50 Dextrose 50% 25 Gm/50 Ml Syringe IV PUSH PRN PRN Hypoglycemia Protocol Enoxaparin Sodium 40 mg 10/28/24 09:00 11/02/24 08:34 Enoxaparin 40 Mg/0.4 Ml Syringe SUB-Q 40 mg DAILY FYN Administration Glucagon 1 mg 10/27/24 16:50 Glucagon For Inj 1 Mg Vial IM PRN PRN Hypoglycemia Protocol Glucose 15 gm 10/27/24 16:50 Glucose Oral Gel 15 Gm Of Glucse In 37.5 Gm Tube PO PRN PRN Hypoglycemia Protocol Hydromorphone HCl 0.5 mg 10/27/24 03:39 10/27/24 08:14 Hydromorphone Hcl Inj (*Crx) 1 Mg/Ml Syr IV PUSH 0.5 mg Q4H PRN Administration Pain Rated 7-10 Dextrose 1,000 mls @ 100 mls/hr 10/27/24 16:50 Dextrose 5% 1,000 Ml IVPB PRN PRN Hypoglycemia Protocol Piperacillin/Tazobactam/Dextrose 3.375 gm in 50 mls @ 100 mls/hr 10/27/24 18:00 11/02/24 05:35 Zosyn 3.375 Gm/Ns 50 Ml IVPB 11/02/24 23:59 100 mls/hr Q6H YFN Administration Potassium Chloride 100 mls @ 25 mls/hr 11/02/24 07:51 11/02/24 08:53 Kcl 40 Meq/Water 100 Ml IVPB 11/02/24 11:50 25 mls/hr ONCE ONE Administration Insulin Aspart 3 - 6 units 10/27/24 18:00 11/02/24 05:36 Insulin Aspart (*Bkc) 100 Units/Ml SUB-Q Not Given Q6HR [facility] Protocol Levothyroxine Sodium 70 mcg 10/28/24 09:30 11/02/24 05:36 Levothyroxine Sodium Inj 100 Mcg/5 Ml Vial IV PUSH 70 mcg DAILY@0630 YFN Administration Multi-Ingred Cream/Lotion/Oil/Oint 1 applic 10/29/24 12:30 11/02/24 08:35 Eucerin Cream 454 Gm Jar TOPICAL 1 applic DAILY YFN Administration Ondansetron HCl 4 mg 10/27/24 03:39 Ondansetron Inj 4 Mg/2 Ml Vial IV PUSH Q4H PRN Nausea Pantoprazole Sodium 40 mg 10/28/24 09:00 11/02/24 08:34 Pantoprazole Sodium Iv 40 Mg Vial IV PUSH 40 mg QAM YFN Administration Sodium Bicarbonate 650 mg 10/30/24 09:00 11/02/24 08:34 Sodium Bicarbonate Tab 650 Mg Tablet FEED TUBE 650 mg BID YFN Administration Sodium Chloride 10 ml 10/28/24 14:00 11/02/24 05:35 Central Line Flush IV PUSH 10 ml Q8HR YFN Administration Sodium Chloride 20 ml 10/28/24 07:52 Central Line Flush IV PUSH PRN PRN after blood draws Radiology Results: ITS Impressions Abdomen/Pelvis CT 10/27/24 05:48 Impression: Multiple mildly distended small bowel is within central mesenteric haziness/inflammatory change. Correlate for early/partial small bowel obstruction versus possibly enteritis and reactive ileus. Cholelithiasis. Small Bowel X-Ray 10/27/24 13:04 IMPRESSION: 1. Closed-loop small bowel obstruction. ADDENDUM: 10/27/24 2072 I called this result to Dr. Morales. Abdomen X-Ray 10/27/24 17:09 IMPRESSION: NO ACUTE ABDOMINAL FINDINGS. Possible stones in the right kidney. Chest X-Ray 11/01/24 06:23 Impression: Mild central pulmonary edema. Support tubes, as above. Labs Labs: Laboratory Results - last 24 hr 11/01/24 11/01/24 11/01/24 04:51 10:33 12:17 WBC RBC Hgb Hct MCV MCH MCHC RDW Plt Count MPV Immature Gran % (Auto) Neut % (Auto) Lymph % (Auto) [place] % (Auto) Eos % (Auto) Baso % (Auto) Lymph # (Auto) [place] # (Auto) Eos # (Auto) Baso # (Auto) Abs Immat Gran (auto) Absolute Neuts (auto) Absolute Nucleated RBC Nucleated RBC % Puncture Site Right radial ABG pH 7.385 ABG pCO2 54.2 H ABG pO2 76.4 L ABG PO2/FiO2 Ratio 2.55 ABG HCO3 31.7 H ABG O2 Saturation 94.9 L ABG O2 Content 15.5 L ABG Base Excess 5.5 A-a Gradient 73.8 Oxyhemoglobin 94.6 Carboxyhemoglobin Methemoglobin Reduced Hemoglobin Total Hemoglobin 11.6 L O2 Delivery Device Ventilator O2 Liters/Min Not Reportable Minute Volume Not Reportable Vent Rate Not Reportable Vent Mode Spontaneous FiO2 30 Tidal Volume Not Reportable PEEP 8 Peak Inspir Pressure 10 Pressure Support Not Reportable Sodium Potassium Chloride Carbon Dioxide Anion Gap BUN Creatinine Estim Creat Clear Calc Estimated GFR Glucose POC Capillary Glucose 89 Calcium Phosphorus 2.9 Magnesium 2.0 Total Bilirubin AST ALT Alkaline Phosphatase Total Protein Albumin 11/01/24 11/01/24 11/02/24 17:39 23:39 04:54 WBC 12.7 H RBC 3.71 L Hgb 10.4 L Hct 33.9 L MCV 91.4 MCH 28.0 MCHC 30.7 L RDW 16.9 H Plt Count 221 MPV 9.3 Immature Gran % (Auto) 2.1 H Neut % (Auto) 74.3 H Lymph % (Auto) 9.7 L [place] % (Auto) 8.2 Eos % (Auto) 5.1 H Baso % (Auto) 0.6 Lymph # (Auto) 1.23 [place] # (Auto) 1.0 H Eos # (Auto) 0.7 H Baso # (Auto) 0.1 Abs Immat Gran (auto) 0.26 H Absolute Neuts (auto) 9.4 H Absolute Nucleated RBC 0.020 H Nucleated RBC % 0.2 Puncture Site ABG pH ABG pCO2 ABG pO2 ABG PO2/FiO2 Ratio ABG HCO3 ABG O2 Saturation ABG O2 Content ABG Base Excess A-a Gradient Oxyhemoglobin Carboxyhemoglobin Methemoglobin Reduced Hemoglobin Total Hemoglobin O2 Delivery Device O2 Liters/Min Minute Volume Vent Rate Vent Mode FiO2 Tidal Volume PEEP Peak Inspir Pressure Pressure Support Sodium 143 Potassium 3.7 Chloride 107 Carbon Dioxide 36 H Anion Gap 0 L BUN 23 H Creatinine 1.20 H Estim Creat Clear Calc 58 Estimated GFR 45 L Glucose 104 POC Capillary Glucose 93 101 Calcium 8.8 Phosphorus Magnesium Total Bilirubin 1.2 AST 29 ALT 20 Alkaline Phosphatase 111 Total Protein 6.0 L Albumin 3.2 L 11/02/24 05:17 WBC RBC Hgb Hct MCV MCH MCHC RDW Plt Count MPV Immature Gran % (Auto) Neut % (Auto) Lymph % (Auto) [place] % (Auto) Eos % (Auto) Baso % (Auto) Lymph # (Auto) [place] # (Auto) Eos # (Auto) Baso # (Auto) Abs Immat Gran (auto) Absolute Neuts (auto) Absolute Nucleated RBC Nucleated RBC % Puncture Site Right radial ABG pH 7.429 ABG pCO2 51.8 H ABG pO2 66.0 L ABG PO2/FiO2 Ratio 2.20 ABG HCO3 33.5 H ABG O2 Saturation 93.2 L ABG O2 Content 8.9 L ABG Base Excess 8.4 A-a Gradient 87.0 Oxyhemoglobin 92.9 Carboxyhemoglobin 1.5 Methemoglobin 0.2 Reduced Hemoglobin 5.4 H Total Hemoglobin 6.7 L* O2 Delivery Device Ventilator O2 Liters/Min Not Reportable Minute Volume Not Reportable Vent Rate 20 Vent Mode Cmv FiO2 30 Tidal Volume 400 PEEP 8 Peak Inspir Pressure Not Reportable Pressure Support Not Reportable Sodium Potassium Chloride Carbon Dioxide Anion Gap BUN Creatinine Estim Creat Clear Calc Estimated GFR Glucose POC Capillary Glucose Calcium Phosphorus Magnesium Total Bilirubin AST ALT Alkaline Phosphatase Total Protein Albumin
--- NOTE | 2024-11-02 11:41 | PCFNICU ---
ICU Rounding Note: Pt current nutrition is Nepro at 40 ml/hr. Last recorded weight is 155 kg, up from 153.5 kg on admit. Bowel Motility: FMS Labs Reviewed: Cr 1.2, GFR 45, BUN 23, Alb 3.2 Meds Noted:Lovenox, Zosyn, Protonix Skin: skin tear noted-coccyx. Additional Notes: Patient current with mechanical vent. No sedation. Tube feedings on hold for breathing trial today. If patient does not tolerate breathing trail recommend restarting tube feedings of Nepro at 40 ml/hr. Flush 30 ml q 4 hours. Following daily in ICU rounds. Monitoring medications, labs, weights, tube feeding tolerance, plan of care Follow up Tuesdays and Fridays per policy.
[2024-11-02 12:09] LABS: Glucose Point of Care 100 mg/dl (65-105)
[2024-11-02] MEDS: IPRATROPIUM 0.5 MG/ALBUTEROL SULFATE 2.5 MG AMPUL.NEB 3 ML INHALATION ×2 (12:59→20:19)
[2024-11-02 13:38] LABS: Alveolar/Arterial O2 Gradient 80.5 mmHg; Base Excess ABG 7.5 mEq/l (+/-2.0); Fractional Inspired Oxygen 30 %; HCO3 ABG 32.8 mEq/l (22.0-26.0); Oxygen Content ABG 15.7 %vol (16.0-22.0); Oxygen Saturation ABG 95.3 % (95.0-100.0); Oxyhemoglobin 94.3 % THb (90.0-100.0); PCO2 ABG 49.7 mmHg (35.0-45.0); Total Hemoglobin 11.8 g/dL (12.0-18.0); pH ABG 7.438 (7.350-7.450)
[2024-11-02 13:39] LABS: Modified Allen's Test Pass; Site Drawn RIGHT RADIAL
[2024-11-02 13:40] LABS: Arterial Blood Gas PEEP 8 cmH2O; Arterial Blood Gas Pressure Support 10 cmH2O; Arterial Blood Gas Vent Mode SPONTANEOUS; Device VENTILATOR
[2024-11-02 17:38] LABS: Glucose Point of Care 85 mg/dl (65-105)
--- NOTE | 2024-11-02 17:42 | PC.NURSE ---
Notified Dr Phillips of patients POC glucose of 85. Trending down from POC of 100 previously. Received order to give half an amp of D50. Order read back and verified.
[2024-11-02] MEDS: DEXTROSE 50% 25 GM/50 ML SYRINGE IV PUSH (17:45)
[2024-11-02 18:36] LABS: Glucose Point of Care 119 mg/dl (65-105)
[2024-11-03] VITALS (22 sets, daily range): BP systolic 113–157; BP diastolic 49–95; PULSE 58–606; RESP 14–24; TEMP 36.5–37.1; O2SAT 91–100
[2024-11-03 00:51] LABS: Glucose Point of Care 74 mg/dl (65-105)
[2024-11-03] MEDS: IPRATROPIUM 0.5 MG/ALBUTEROL SULFATE 2.5 MG AMPUL.NEB 3 ML INHALATION ×4 (02:36→20:28)
[2024-11-03 05:32] LABS: Alveolar/Arterial O2 Gradient 100.7 mmHg; Carboxyhemoglobin 0.7 % THb (0-2.0); Fractional Inspired Oxygen 36 %; HCO3 ABG 31.7 mEq/l (22.0-26.0); Methemoglobin ABG 0.1 %THb (0-1.5); Oxygen Content ABG 16.3 %vol (16.0-22.0); Oxygen Saturation ABG 96.4 % (95.0-100.0); PCO2 ABG 56.9 mmHg (35.0-45.0); Reduced Hemoglobin 3.2 %THb (0-5.0); pH ABG 7.364 (7.350-7.450)
[2024-11-03 06:01] LABS: Device NASAL CANNULA; Modified Allen's Test Pass; Site Drawn LEFT RADIAL
[2024-11-03 06:23] LABS: Basophils Absolute Auto 0.1 K/mm3 (0.0-0.1); Basophils Percent Auto 0.5 % (0.2-1.2); Eosinophils Absolute Auto 0.8 K/mm3 (0-0.3); Eosinophils Percent Auto 6.5 % (0-4.4); Hematocrit 35.1 % (37.0-47.0); Hemoglobin 10.6 g/dL (12.0-15.0); Immature Granulocyte Percent A 2.4 % (0-0.5); Lymphocytes Absolute Auto 1.41 K/mm3 (0.9-3.2); Lymphocytes Percent Auto 11.2 % (18.3-44.2); Mean Corpuscular HGB Conc 30.2 g/dl (32-36); Mean Corpuscular Volume 92.9 fl (80-100); Mean Platelet Volume 9.5 fl (7.4-10.4); Monocytes Absolute Auto 1.1 K/mm3 (0.1-0.6); Monocytes Percent Auto 8.5 % (2.6-8.5); Neutrophils Absolute Auto 8.9 K/mm3 (1.3-6.7); Neutrophils Percent Auto 70.9 % (45.5-73.1); Platelet Count Result 248 k/mm3 (150-375); Red Blood Count 3.78 M/mm3 (4.2-5.4); Red Cell Distribution Width 16.8 % (11.5-14.5); White Blood Count 12.6 K/mm3 (4.5-10.0)
[2024-11-03 06:25] LABS: Glucose Point of Care 72 mg/dl (65-105)
[2024-11-03 06:25] LABS: Glucose Point of Care 47 mg/dl (65-105)
[2024-11-03 06:33] LABS: Alanine Aminotransferase 25 U/L (6-35); Albumin Level 3.3 g/dL (3.5-5.1); Alkaline Phosphatase 109 U/L (38-126); Anion Gap 1 mmol/L (4-12); Aspartate Amino Transferase 38 U/L (14-36); Bilirubin,Total 1.2 mg/dL (0.2-1.3); Blood Urea Nitrogen 25 mg/dL (7-17); Calcium 8.7 mg/dL (8.4-10.2); Carbon Dioxide 37 mmol/L (22-30); Chloride 106 mmol/L (98-107); Estimated CRCL calculation 58 ml/min; Estimated Glomerular Filt Rate 45; Glucose 81 mg/dL (65-110); Magnesium 1.9 mg/dL (1.6-2.3); Potassium 4.3 mmol/L (3.4-5.0); Sodium 144 mmol/L (137-145)
[2024-11-03] MEDS: CENTRAL LINE FLUSH 10 ML IV PUSH ×3 (06:45→21:14)
[2024-11-03] MEDS: LEVOTHYROXINE SODIUM INJ 100 MCG/5 ML VIAL 70 MCG IV PUSH (06:46)
[2024-11-03] MEDS: ENOXAPARIN 40 MG/0.4 ML SYRINGE SUB-Q (08:38)
[2024-11-03] MEDS: PANTOPRAZOLE SODIUM IV 40 MG VIAL IV PUSH (08:39)
[2024-11-03] MEDS: SODIUM BICARBONATE TAB 650 MG TABLET FEED TUBE ×2 (08:39→16:49)
[2024-11-03] MEDS: EUCERIN CREAM 454 GM JAR 1 APPLIC TOPICAL (08:39)
--- NOTE | 2024-11-03 10:05 | P.PNGS_ITS ---
Progress Note: A&P Assessment and Plan (1) Bowel obstruction: Qualifiers: Intestinal obstruction type: unspecified ileus Qualified Code(s): K56.7 - Ileus, unspecified Code(s): K56.609 - Unspecified intestinal obstruction, unspecified as to partial versus complete obstruction Status: Acute Assessment and Plan: will get modified swallow study, cont TFs for now, ok to transfer to floor from surgical standpoint Subjective Subjective Date/Time Seen: 11/03/24 10:05 Interval history: extubated yesterday, failed swallow study this am Review of Systems Review of Systems: All systems reviewed & are unremarkable except as noted in HPI and below Exam Const: General: cooperative, comfortable, no acute distress and obese Resp: Auscultation: diminished lung sounds Cardio: Rate: regular rate Rhythm: regular rhythm GI: Inspection: normal to inspection, incision and obesity GI Palp: Yes abdominal tenderness and Yes Soft to palpation Objective Data Vital Signs Vital Signs: Vital Signs - 24 hr 11/02/24 10:20 11/02/24 10:32 11/02/24 10:53 Temperature Pulse Rate 48 L 60 Respiratory Rate Blood Pressure Pulse Oximetry 95 93 92 Oxygen Delivery Mechanical Ventilation Mechanical Ventilation Mechanical Ventilation Oxygen Flow Rate Fraction of Inspired Oxygen 40 30 30 11/02/24 12:00 11/02/24 12:00 11/02/24 12:00 Temperature 36.9 C Pulse Rate 56 L 59 L Respiratory Rate 17 Blood Pressure 145/66 H Pulse Oximetry 92 Oxygen Delivery Mechanical Ventilation Oxygen Flow Rate Fraction of Inspired Oxygen 30 11/02/24 13:00 11/02/24 13:00 11/02/24 13:20 Temperature Pulse Rate 57 L 57 L 67 Respiratory Rate 19 21 H Blood Pressure Pulse Oximetry 94 Oxygen Delivery Mechanical Ventilation Oxygen Flow Rate Fraction of Inspired Oxygen 30 11/02/24 13:56 11/02/24 14:00 11/02/24 14:00 Temperature Pulse Rate 84 84 Respiratory Rate 17 Blood Pressure 122/54 L Pulse Oximetry 92 Oxygen Delivery BiPAP Oxygen Flow Rate Fraction of Inspired Oxygen 11/02/24 14:02 11/02/24 15:40 11/02/24 15:50 Temperature Pulse Rate Respiratory Rate Blood Pressure Pulse Oximetry 95 97 93 Oxygen Delivery Nasal Cannula Nasal Cannula Nasal Cannula Oxygen Flow Rate 6 6 4 Fraction of Inspired Oxygen 44 44 36 11/02/24 15:53 11/02/24 16:00 11/02/24 16:00 Temperature Pulse Rate 72 69 70 Respiratory Rate 18 Blood Pressure 135/62 Pulse Oximetry 94 92 Oxygen Delivery Nasal Cannula Oxygen Flow Rate 4 Fraction of Inspired Oxygen 11/02/24 18:00 11/02/24 18:00 11/02/24 20:00 Temperature 36.7 C Pulse Rate 64 67 62 Respiratory Rate 18 Blood Pressure 137/70 144/67 H Pulse Oximetry 97 95 Oxygen Delivery Oxygen Flow Rate Fraction of Inspired Oxygen 11/02/24 20:00 11/02/24 20:00 11/02/24 20:24 Temperature Pulse Rate 63 63 Respiratory Rate 24 H Blood Pressure Pulse Oximetry 93 Oxygen Delivery Nasal Cannula Oxygen Flow Rate 4 Fraction of Inspired Oxygen 11/02/24 20:27 11/02/24 20:34 11/02/24 22:00 Temperature Pulse Rate 65 74 Respiratory Rate 24 H Blood Pressure Pulse Oximetry 95 Oxygen Delivery Nasal Cannula Oxygen Flow Rate 4 Fraction of Inspired Oxygen 11/02/24 22:00 11/03/24 00:00 11/03/24 00:00 Temperature 36.9 C Pulse Rate 74 65 Respiratory Rate 19 17 Blood Pressure 135/72 142/66 H Pulse Oximetry 94 94 94 Oxygen Delivery Nasal Cannula Oxygen Flow Rate 4 Fraction of Inspired Oxygen 11/03/24 00:00 11/03/24 02:00 11/03/24 02:00 Temperature Pulse Rate 65 58 L 58 L Respiratory Rate 19 Blood Pressure 157/75 H Pulse Oximetry 96 Oxygen Delivery Oxygen Flow Rate Fraction of Inspired Oxygen 11/03/24 02:40 11/03/24 02:50 11/03/24 04:00 Temperature Pulse Rate 60 606 H Respiratory Rate 19 19 Blood Pressure Pulse Oximetry 95 Oxygen Delivery Nasal Cannula Oxygen Flow Rate 4 Fraction of Inspired Oxygen 11/03/24 04:00 11/03/24 04:00 11/03/24 06:00 Temperature 36.8 C Pulse Rate 69 67 58 L Respiratory Rate 24 H Blood Pressure 141/66 H Pulse Oximetry 95 Oxygen Delivery Oxygen Flow Rate Fraction of Inspired Oxygen 11/03/24 06:00 11/03/24 07:25 11/03/24 07:25 Temperature Pulse Rate 58 L 60 60 Respiratory Rate 18 18 18 Blood Pressure 127/49 L Pulse Oximetry 93 96 Oxygen Delivery Nasal Cannula Oxygen Flow Rate 4 Fraction of Inspired Oxygen 11/03/24 07:32 11/03/24 08:00 11/03/24 08:00 Temperature 36.5 C Pulse Rate 58 L 64 68 Respiratory Rate 18 14 Blood Pressure 154/77 H Pulse Oximetry 96 Oxygen Delivery Oxygen Flow Rate Fraction of Inspired Oxygen Intake/Output Intake/Output: Intake & Output 10/31/24 11/01/24 11/02/24 11/03/24 23:59 23:59 23:59 23:59 Intake Total 1682.8 150 864 Output Total 2300 1775 3100 955 Balance -617.2 -1625 -2236 -955 Meds/Results Medications: Active Medications Generic Name Dose Route Start Last Admin Trade Name Freq PRN Reason Stop Dose Admin Albuterol/Ipratropium 3 ml 11/02/24 14:00 11/03/24 07:25 Ipratropium 0.5 Mg/Albuterol Sulfate 2.5 Mg Ampul.Neb 3 Ml INHALATION 3 ml Q6HRT YFN Administration Dextrose 12.5 gm 10/27/24 16:50 11/02/24 17:45 Dextrose 50% 25 Gm/50 Ml Syringe IV PUSH 12.5 gm PRN PRN Administration Hypoglycemia Protocol Enoxaparin Sodium 40 mg 10/28/24 09:00 11/03/24 08:38 Enoxaparin 40 Mg/0.4 Ml Syringe SUB-Q 40 mg DAILY YFN Administration Glucagon 1 mg 10/27/24 16:50 Glucagon For Inj 1 Mg Vial IM PRN PRN Hypoglycemia Protocol Glucose 15 gm 10/27/24 16:50 Glucose Oral Gel 15 Gm Of Glucse In 37.5 Gm Tube PO PRN PRN Hypoglycemia Protocol Hydromorphone HCl 0.5 mg 10/27/24 03:39 10/27/24 08:14 Hydromorphone Hcl Inj (*Crx) 1 Mg/Ml Syr IV PUSH 0.5 mg Q4H PRN Administration Pain Rated 7-10 Dextrose 1,000 mls @ 100 mls/hr 10/27/24 16:50 Dextrose 5% 1,000 Ml IVPB PRN PRN Hypoglycemia Protocol Insulin Aspart 3 - 6 units 10/27/24 18:00 11/03/24 06:45 Insulin Aspart (*Bkc) 100 Units/Ml SUB-Q Not Given Q6HR YFN Protocol Levothyroxine Sodium 70 mcg 10/28/24 09:30 11/03/24 06:46 Levothyroxine Sodium Inj 100 Mcg/5 Ml Vial IV PUSH 70 mcg DAILY@0630 YFN Administration Multi-Ingred Cream/Lotion/Oil/Oint 1 applic 10/29/24 12:30 11/03/24 08:39 Eucerin Cream 454 Gm Jar TOPICAL 1 applic DAILY YFN Administration Ondansetron HCl 4 mg 10/27/24 03:39 Ondansetron Inj 4 Mg/2 Ml Vial IV PUSH Q4H PRN Nausea Pantoprazole Sodium 40 mg 10/28/24 09:00 11/03/24 08:39 Pantoprazole Sodium Iv 40 Mg Vial IV PUSH 40 mg QAM YFN Administration Sodium Bicarbonate 650 mg 10/30/24 09:00 11/03/24 08:39 Sodium Bicarbonate Tab 650 Mg Tablet FEED TUBE 650 mg BID YFN Administration Sodium Chloride 10 ml 10/28/24 14:00 11/03/24 06:45 Central Line Flush IV PUSH 10 ml Q8HR YFN Administration Sodium Chloride 20 ml 10/28/24 07:52 Central Line Flush IV PUSH PRN PRN after blood draws Radiology Results: ITS Impressions Abdomen/Pelvis CT 10/27/24 05:48 Impression: Multiple mildly distended small bowel is within central mesenteric haziness/inflammatory change. Correlate for early/partial small bowel obstruction versus possibly enteritis and reactive ileus. Cholelithiasis. Small Bowel X-Ray 10/27/24 13:04 IMPRESSION: 1. Closed-loop small bowel obstruction. ADDENDUM: 10/27/24 1713 I called this result to Dr. Morales. Abdomen X-Ray 10/27/24 17:09 IMPRESSION: NO ACUTE ABDOMINAL FINDINGS. Possible stones in the right kidney. Chest X-Ray 11/02/24 11:28 Impression: 1: Persistent mild interstitial edema. Labs Labs: Laboratory Results - last 24 hr 11/02/24 11/02/24 11/02/24 11:37 13:36 17:20 WBC RBC Hgb Hct MCV MCH MCHC RDW Plt Count MPV Immature Gran % (Auto) Neut % (Auto) Lymph % (Auto) [place] % (Auto) Eos % (Auto) Baso % (Auto) Lymph # (Auto) [place] # (Auto) Eos # (Auto) Baso # (Auto) Abs Immat Gran (auto) Absolute Neuts (auto) Absolute Nucleated RBC Nucleated RBC % Puncture Site Right radial ABG pH 7.438 ABG pCO2 49.7 H ABG pO2 75.0 L ABG PO2/FiO2 Ratio 2.50 ABG HCO3 32.8 H ABG O2 Saturation 95.3 ABG O2 Content 15.7 L ABG Base Excess 7.5 A-a Gradient 80.5 Oxyhemoglobin 94.3 Carboxyhemoglobin Methemoglobin Reduced Hemoglobin Total Hemoglobin 11.8 L O2 Delivery Device Ventilator O2 Liters/Min Not Reportable Minute Volume Not Reportable Vent Rate Not Reportable Vent Mode Spontaneous FiO2 30 Tidal Volume Not Reportable PEEP 8 Peak Inspir Pressure Not Reportable Pressure Support 10 Sodium Potassium Chloride Carbon Dioxide Anion Gap BUN Creatinine Estim Creat Clear Calc Estimated GFR Glucose POC Capillary Glucose 100 85 Calcium Phosphorus Magnesium Total Bilirubin AST ALT Alkaline Phosphatase Total Protein Albumin 11/02/24 11/03/24 11/03/24 18:34 00:49 05:23 WBC RBC Hgb Hct MCV MCH MCHC RDW Plt Count MPV Immature Gran % (Auto) Neut % (Auto) Lymph % (Auto) [place] % (Auto) Eos % (Auto) Baso % (Auto) Lymph # (Auto) [place] # (Auto) Eos # (Auto) Baso # (Auto) Abs Immat Gran (auto) Absolute Neuts (auto) Absolute Nucleated RBC Nucleated RBC % Puncture Site Left radial ABG pH 7.364 ABG pCO2 56.9 H ABG pO2 90.0 ABG PO2/FiO2 Ratio 2.50 ABG HCO3 31.7 H ABG O2 Saturation 96.4 ABG O2 Content 16.3 ABG Base Excess 5.0 A-a Gradient 100.7 Oxyhemoglobin 96.0 Carboxyhemoglobin 0.7 Methemoglobin 0.1 Reduced Hemoglobin 3.2 Total Hemoglobin 12.0 O2 Delivery Device Nasal cannula O2 Liters/Min 4.0 Minute Volume Vent Rate Vent Mode FiO2 36 Tidal Volume PEEP Peak Inspir Pressure Pressure Support Sodium Potassium Chloride Carbon Dioxide Anion Gap BUN Creatinine Estim Creat Clear Calc Estimated GFR Glucose POC Capillary Glucose 119 H 74 Calcium Phosphorus Magnesium Total Bilirubin AST ALT Alkaline Phosphatase Total Protein Albumin 11/03/24 11/03/24 11/03/24 06:14 06:19 06:21 WBC 12.6 H RBC 3.78 L Hgb 10.6 L Hct 35.1 L MCV 92.9 MCH 28.0 MCHC 30.2 L RDW 16.8 H Plt Count 248 MPV 9.5 Immature Gran % (Auto) 2.4 H Neut % (Auto) 70.9 Lymph % (Auto) 11.2 L [place] % (Auto) 8.5 Eos % (Auto) 6.5 H Baso % (Auto) 0.5 Lymph # (Auto) 1.41 [place] # (Auto) 1.1 H Eos # (Auto) 0.8 H Baso # (Auto) 0.1 Abs Immat Gran (auto) 0.30 H Absolute Neuts (auto) 8.9 H Absolute Nucleated RBC 0.000 Nucleated RBC % 0.0 Puncture Site ABG pH ABG pCO2 ABG pO2 ABG PO2/FiO2 Ratio ABG HCO3 ABG O2 Saturation ABG O2 Content ABG Base Excess A-a Gradient Oxyhemoglobin Carboxyhemoglobin Methemoglobin Reduced Hemoglobin Total Hemoglobin O2 Delivery Device O2 Liters/Min Minute Volume Vent Rate Vent Mode FiO2 Tidal Volume PEEP Peak Inspir Pressure Pressure Support Sodium 144 Potassium 4.3 Chloride 106 Carbon Dioxide 37 H Anion Gap 1 L BUN 25 H Creatinine 1.20 H Estim Creat Clear Calc 58 Estimated GFR 45 L Glucose 81 POC Capillary Glucose 47 L* 72 Calcium 8.7 Phosphorus 4.0 Magnesium 1.9 Total Bilirubin 1.2 AST 38 H ALT 25 Alkaline Phosphatase 109 Total Protein 6.0 L Albumin 3.3 L
--- NOTE | 2024-11-03 10:20 | PCSTNOTE ---
Please refer to the Bedside Swallow Evaluation in the EMR. Please note, silent aspiration cannot be ruled out at bedside. The above pt, admitted with an SBO with surgery, subsequent respiratory failure, and intubation was seen for a bedside swallow evaluation; she was extubated yesterday. She was positioned as upright as possible in the ICU bed for an optimal feeding position. She was alert but not oriented to place; denied previous dysphagia. Oral motor function was grossly intact with good upper and lower dentition. Vocal quality was clear but slightly raspy. Oral mucosa was dry. She was presented with multiple trials of ice chips via a spoon, pudding and cracker, then water via cup sips. With all trials of ice chips and water, no overt s/s of aspiration were exhibited; multiple trials of pudding revealed inconsistent cough; and after the cracker trial, coughing was again exhibited. Due to the inconsistent nature of the overt s/s of aspiration, an MBS was recommended; however, it was then determined pts weight exceeded the MBS chair limit. Impression: undetermined degree of dysphagia due to inconsistent s/s of aspiration, i.e. coughing. Recommend ice chips today to facilitate swallowing, reassess at bedside tomorrow. If MBS is still recommended after another bedside swallow assessment tomorrow and PT/OT feel pt would be able to stand for that testing, MBS could be completed as she could be transferred to x-ray via w/c.
[2024-11-03 12:12] LABS: Glucose Point of Care 77 mg/dl (65-105)
--- NOTE | 2024-11-03 12:17 | PCNFU ---
Nutrition Follow-Up Complete: Inadequate energy intake related to mechanical ventilation as evidenced by need for full tube feeding. Goal: Meet estimated protein energy needs Patient is progressing towards goal. We will continue current goal. Pt current nutrition is Nepro at 40 ml/hr. Last recorded weight is 158 kg, up from 153.5 kg. Bowel Motility: FMS Labs Reviewed: Cr 1.2, BUN 25, BUN 45, Alb 3.3, Hct 35.1, Hgb 10.6 Meds Noted: NovoLog, Zosyn, Protonix. Skin: WNL Additional Notes: Patient has been extubated 11/02. Speech Evaluation today, patient unable to tolerate MBS. Plans to repeat MBS tomorrow and will continue NGT feedings of Nepro at 40 ml/hr. Tube feedings at 40 ml/hr providing 1584 kcal/72 gm protein/640 ml water. Flush 30 ml q 4 hours. Agree with diet orders. Monitoring medications, labs, weights, tube feeding tolerance, plan of care Follow up Tuesdays and Fridays per policy
--- NOTE | 2024-11-03 12:19 | P.PNINT_ITS ---
Progress Note: A&P Assessment and Plan (1) Acute respiratory failure: Code(s): J96.00 - Acute respiratory failure, unspecified whether with hypoxia or hypercapnia Status: Acute Assessment and Plan: Acute Respiratory failure secondary to general anaesthesia encephalopathy and small-bowel obstruction Continue full mechanical ventilation support to prevent hypoxemia/hypercarbia and end organ damage. ABG reviewed and wean FiO2 Chest and ABGs reviewed x-ray reviewed -patient is off all sedation, will place patient on SBT likely 08/29 in extubate to if she does well -I suspect patient is a chronic CO2 retainer as evidenced by her morbid obesity and high bicarb on presentation. Now due to acute kidney injury she has no compensation for hypercarbia leading to acidosis. Bicarb per tube. Once extubated she may also need NIPPV 11/01: Tolerated SBT 08/29 for approximately 2 hours, then she was tachypneic in the upper 20s to mid 30s. RSBI had increased, patient was hypercapnic on her ABGs. Extubation was deferred 11/02: Will retry placing patient on a little higher SBT support today given her body habitus and BMI of 62.5 11/02: Successfully extubated -patient diuresed well Continue bronchodilators, on 3 L nasal cannula (2) Small bowel obstruction: Code(s): K56.609 - Unspecified intestinal obstruction, unspecified as to partial versus complete obstruction Status: Acute Assessment and Plan: Status post Exploratory laparotomy, lysis of adhesions, detorsion of closed loop small bowel obstruction npo. management of surgical incision wound as per General surgery -speech therapy evaluated the patient, failed her bedside swallow, recommended modified barium swallow test, patient will not be able to get her modified swallow test due to weight limitations (3) VEE (acute kidney injury): Code(s): N17.9 - Acute kidney failure, unspecified Status: Acute Assessment and Plan: Patient has developed postop VEE which could be secondary to fluid shifting, as sepsis, hypovolemia Patient received IV fluid bolus in OR. She also has significant amount of ascites as per the surgeon which was drained out. Patient does have overall volume overload as evidenced by lower extremity edema and chronic venous stasis which she is likely third-spacing Creatinine is improving along with urine output Advance tube feeds and discontinue further IV fluids Status post albumin Her blood pressure has been adequate and she has not required any vasopressors and will be monitor Normal CK level CT scan was negative for any obstruction or stone Monitor urine output electrolytes and creatinine -creatinine improving, will continue to monitor (4) Hypothyroidism: Code(s): E03.9 - Hypothyroidism, unspecified Status: Acute Assessment and Plan: Continue IV levothyroxine (5) Enteritis: Code(s): K52.9 - Noninfective gastroenteritis and colitis, unspecified Status: Acute Assessment and Plan: Completed a course of Zosyn (6) Acute UTI: Code(s): N39.0 - Urinary tract infection, site not specified Status: Acute Assessment and Plan: UA suggestive of UTI. Blood cultures negative Urin n cultures growing pansensitive E coli Completed a course of Zosyn Plan DVT prophylaxis -Lovenox Stress ulcer prophylaxis -PPI Nutrition -patient failed his swallow test, unable to do modified swallow test due to weight limitations on the of the chair, will continue tube feeds. Speech will continue to follow, okay with ice chips and sips with meds Code Status - Full Code Total Critical Care Time - 32 minutes Due to a high probability of clinically significant, life threatening dete rioration, the patient required my highest level of preparedness to intervene emergently and I personally spent this critical care time directly and personally managing the patient. This critical care time included obtaining a history; examining the patient; pulse oximetry; ordering and review of studies; arranging urgent treatment with development of a management plan; evaluation of patient's response to treatment; frequent reassessment; and discussions with other providers. It was exclusive of separately billable procedures and treating other patients and teaching time. Please see Assessment and Plan section and the rest of the note for further information on patient assessment and treatment This dictation may have been done utilizing a voice recognition system. Attempts have been made to correct errors. However, there may be uncorrected grammatical, spelling, and recognitions errors present. Subjective Date/time seen: 11/03/24 12:19 Interval history: Reason for consult: Small-bowel obstruction status post Exploratory laparotomy, lysis of adhesions, detorsion of closed loop small bowel obstruction, acute respiratory failure, acute kidney injury 11/02/24: Extubated 11/03/2024: Patient seen and examined in the ICU, remains extubated on 3 L nasal cannula, is awake, alert, oriented x3, denies any chest pain, shortness a ventral abdominal pain, nausea, vomiting. States she is hungry. Urine output has been adequate, hemodynamically stable afebrile Review of Systems Review of Systems: All systems reviewed & are unremarkable except as noted in HPI and below Exam Narrative: General: Morbidly obese patient, is awake, alert, oriented, in no acute distress HEENT: Pupils equal and reactive, sclera is clear Lungs/Chest: Clear to auscultation bilaterally, decreased at bases, adequate air entry. Cardiac: Sinus tachycardia Abdomen: Hypoactive bowel sounds Morbidly Obese. Soft. NT. ND. Incision in the midline covered with dressing Extremities: Bilateral edema and chronic venous stasis changes with dry flaky skin : Ann in place Neurologic: patient is awake, alert, answers to questions appropriately and follows simple commands in all extremities Objective Data Vital Signs Vital Signs: Vital Signs - 24 hr 11/02/24 13:00 11/02/24 13:00 11/02/24 13:20 Temperature Pulse Rate 57 L 57 L 67 Respiratory Rate 19 21 H Blood Pressure Pulse Oximetry 94 Oxygen Delivery Mechanical Ventilation Oxygen Flow Rate Fraction of Inspired Oxygen 30 11/02/24 13:56 11/02/24 14:00 11/02/24 14:00 Temperature Pulse Rate 84 84 Respiratory Rate 17 Blood Pressure 122/54 L Pulse Oximetry 92 Oxygen Delivery BiPAP Oxygen Flow Rate Fraction of Inspired Oxygen 11/02/24 14:02 11/02/24 15:40 11/02/24 15:50 Temperature Pulse Rate Respiratory Rate Blood Pressure Pulse Oximetry 95 97 93 Oxygen Delivery Nasal Cannula Nasal Cannula Nasal Cannula Oxygen Flow Rate 6 6 4 Fraction of Inspired Oxygen 44 44 36 11/02/24 15:53 11/02/24 16:00 11/02/24 16:00 Temperature Pulse Rate 72 69 70 Respiratory Rate 18 Blood Pressure 135/62 Pulse Oximetry 94 92 Oxygen Delivery Nasal Cannula Oxygen Flow Rate 4 Fraction of Inspired Oxygen 11/02/24 18:00 11/02/24 18:00 11/02/24 20:00 Temperature 98.0 F Pulse Rate 64 67 62 Respiratory Rate 18 Blood Pressure 137/70 144/67 H Pulse Oximetry 97 95 Oxygen Delivery Oxygen Flow Rate Fraction of Inspired Oxygen 11/02/24 20:00 11/02/24 20:00 11/02/24 20:24 Temperature Pulse Rate 63 63 Respiratory Rate 24 H Blood Pressure Pulse Oximetry 93 Oxygen Delivery Nasal Cannula Oxygen Flow Rate 4 Fraction of Inspired Oxygen 11/02/24 20:27 11/02/24 20:34 11/02/24 22:00 Temperature Pulse Rate 65 74 Respiratory Rate 24 H Blood Pressure Pulse Oximetry 95 Oxygen Delivery Nasal Cannula Oxygen Flow Rate 4 Fraction of Inspired Oxygen 11/02/24 22:00 11/03/24 00:00 11/03/24 00:00 Temperature 98.4 F Pulse Rate 74 65 Respiratory Rate 19 17 Blood Pressure 135/72 142/66 H Pulse Oximetry 94 94 94 Oxygen Delivery Nasal Cannula Oxygen Flow Rate 4 Fraction of Inspired Oxygen 11/03/24 00:00 11/03/24 02:00 11/03/24 02:00 Temperature Pulse Rate 65 58 L 58 L Respiratory Rate 19 Blood Pressure 157/75 H Pulse Oximetry 96 Oxygen Delivery Oxygen Flow Rate Fraction of Inspired Oxygen 11/03/24 02:40 11/03/24 02:50 11/03/24 04:00 Temperature Pulse Rate 60 606 H Respiratory Rate 19 19 Blood Pressure Pulse Oximetry 95 Oxygen Delivery Nasal Cannula Oxygen Flow Rate 4 Fraction of Inspired Oxygen 11/03/24 04:00 11/03/24 04:00 11/03/24 06:00 Temperature 98.2 F Pulse Rate 69 67 58 L Respiratory Rate 24 H Blood Pressure 141/66 H Pulse Oximetry 95 Oxygen Delivery Oxygen Flow Rate Fraction of Inspired Oxygen 11/03/24 06:00 11/03/24 07:25 11/03/24 07:25 Temperature Pulse Rate 58 L 60 60 Respiratory Rate 18 18 18 Blood Pressure 127/49 L Pulse Oximetry 93 96 Oxygen Delivery Nasal Cannula Oxygen Flow Rate 4 Fraction of Inspired Oxygen 11/03/24 07:32 11/03/24 08:00 11/03/24 08:00 Temperature 97.7 F Pulse Rate 58 L 64 68 Respiratory Rate 18 14 Blood Pressure 154/77 H Pulse Oximetry 96 Oxygen Delivery Oxygen Flow Rate Fraction of Inspired Oxygen 11/03/24 10:00 11/03/24 10:00 11/03/24 12:00 Temperature Pulse Rate 67 61 63 Respiratory Rate 19 Blood Pressure 113/95 H Pulse Oximetry 100 Oxygen Delivery Oxygen Flow Rate Fraction of Inspired Oxygen 11/03/24 12:00 Temperature 98.7 F Pulse Rate 65 Respiratory Rate 18 Blood Pressure 139/87 Pulse Oximetry 97 Oxygen Delivery Oxygen Flow Rate Fraction of Inspired Oxygen Intake/Output Intake/Output: Intake & Output 10/31/24 11/01/24 11/02/24 11/03/24 23:59 23:59 23:59 23:59 Intake Total 1682.8 150 864 Output Total 2300 1775 3100 955 [facility] -617.2 -1625 -2236 -955 Meds/Results Medications: Active Medications Generic Name Dose Route Start Last Admin Trade Name Freq PRN Reason Stop Dose Admin Albuterol/Ipratropium 3 ml 11/02/24 14:00 11/03/24 07:25 Ipratropium 0.5 Mg/Albuterol Sulfate 2.5 Mg Ampul.Neb 3 Ml INHALATION 3 ml Q6HRT YFN Administration Dextrose 12.5 gm 10/27/24 16:50 11/02/24 17:45 Dextrose 50% 25 Gm/50 Ml Syringe IV PUSH 12.5 gm PRN PRN Administration Hypoglycemia Protocol Enoxaparin Sodium 40 mg 10/28/24 09:00 11/03/24 08:38 Enoxaparin 40 Mg/0.4 Ml Syringe SUB-Q 40 mg DAILY YFN Administration Glucagon 1 mg 10/27/24 16:50 Glucagon For Inj 1 Mg Vial IM PRN PRN Hypoglycemia Protocol Glucose 15 gm 10/27/24 16:50 Glucose Oral Gel 15 Gm Of Glucse In 37.5 Gm Tube PO PRN PRN Hypoglycemia Protocol Hydromorphone HCl 0.5 mg 10/27/24 03:39 10/27/24 08:14 Hydromorphone Hcl Inj (*Crx) 1 Mg/Ml Syr IV PUSH 0.5 mg Q4H PRN Administration Pain Rated 7-10 Dextrose 1,000 mls @ 100 mls/hr 10/27/24 16:50 Dextrose 5% 1,000 Ml IVPB PRN PRN Hypoglycemia Protocol Insulin Aspart 3 - 6 units 10/27/24 18:00 11/03/24 06:45 Insulin Aspart (*Bkc) 100 Units/Ml SUB-Q Not Given Q6HR [facility] Protocol Levothyroxine Sodium 70 mcg 10/28/24 09:30 11/03/24 06:46 Levothyroxine Sodium Inj 100 Mcg/5 Ml Vial IV PUSH 70 mcg DAILY@0630 [facility] Administration Multi-Ingred Cream/Lotion/Oil/Oint 1 applic 10/29/24 12:30 11/03/24 08:39 Eucerin Cream 454 Gm Jar TOPICAL 1 applic DAILY YFN Administration Ondansetron HCl 4 mg 10/27/24 03:39 Ondansetron Inj 4 Mg/2 Ml Vial IV PUSH Q4H PRN Nausea Pantoprazole Sodium 40 mg 10/28/24 09:00 11/03/24 08:39 Pantoprazole Sodium Iv 40 Mg Vial IV PUSH 40 mg QAM FYN Administration Sodium Bicarbonate 650 mg 10/30/24 09:00 11/03/24 08:39 Sodium Bicarbonate Tab 650 Mg Tablet FEED TUBE 650 mg BID YFN Administration Sodium Chloride 10 ml 10/28/24 14:00 11/03/24 06:45 Central Line Flush IV PUSH 10 ml Q8HR YFN Administration Sodium Chloride 20 ml 10/28/24 07:52 Central Line Flush IV PUSH PRN PRN after blood draws Radiology Results: ITS Impressions Abdomen/Pelvis CT 10/27/24 05:48 Impression: Multiple mildly distended small bowel is within central mesenteric haziness/inflammatory change. Correlate for early/partial small bowel obstruction versus possibly enteritis and reactive ileus. Cholelithiasis. Small Bowel X-Ray 10/27/24 13:04 IMPRESSION: 1. Closed-loop small bowel obstruction. ADDENDUM: 10/27/24 [id number] I called this result to Dr. Morales. Abdomen X-Ray 10/27/24 17:09 IMPRESSION: NO ACUTE ABDOMINAL FINDINGS. Possible stones in the right kidney. Chest X-Ray 11/02/24 11:28 Impression: 1: Persistent mild interstitial edema. Labs Labs: Laboratory Results - last 24 hr 11/02/24 11/02/24 11/02/24 13:36 17:20 18:34 WBC RBC Hgb Hct MCV MCH MCHC RDW Plt Count MPV Immature Gran % (Auto) Neut % (Auto) Lymph % (Auto) [place] % (Auto) Eos % (Auto) Baso % (Auto) Lymph # (Auto) [place] # (Auto) Eos # (Auto) Baso # (Auto) Abs Immat Gran (auto) Absolute Neuts (auto) Absolute Nucleated RBC Nucleated RBC % Puncture Site Right radial ABG pH 7.438 ABG pCO2 49.7 H ABG pO2 75.0 L ABG PO2/FiO2 Ratio 2.50 ABG HCO3 32.8 H ABG O2 Saturation 95.3 ABG O2 Content 15.7 L ABG Base Excess 7.5 A-a Gradient 80.5 Oxyhemoglobin 94.3 Carboxyhemoglobin Methemoglobin Reduced Hemoglobin Total Hemoglobin 11.8 L O2 Delivery Device Ventilator O2 Liters/Min Not Reportable Minute Volume Not Reportable Vent Rate Not Reportable Vent Mode Spontaneous FiO2 30 Tidal Volume Not Reportable PEEP 8 Peak Inspir Pressure Not Reportable Pressure Support 10 Sodium Potassium Chloride Carbon Dioxide Anion Gap BUN Creatinine Estim Creat Clear Calc Estimated GFR Glucose POC Capillary Glucose 85 119 H Calcium Phosphorus Magnesium Total Bilirubin AST ALT Alkaline Phosphatase Total Protein Albumin 11/03/24 11/03/24 11/03/24 00:49 05:23 06:14 WBC 12.6 H RBC 3.78 L Hgb 10.6 L Hct 35.1 L MCV 92.9 MCH 28.0 MCHC 30.2 L RDW 16.8 H Plt Count 248 MPV 9.5 Immature Gran % (Auto) 2.4 H Neut % (Auto) 70.9 Lymph % (Auto) 11.2 L [place] % (Auto) 8.5 Eos % (Auto) 6.5 H Baso % (Auto) 0.5 Lymph # (Auto) 1.41 [place] # (Auto) 1.1 H Eos # (Auto) 0.8 H Baso # (Auto) 0.1 Abs Immat Gran (auto) 0.30 H Absolute Neuts (auto) 8.9 H Absolute Nucleated RBC 0.000 Nucleated RBC % 0.0 Puncture Site Left radial ABG pH 7.364 ABG pCO2 56.9 H ABG pO2 90.0 ABG PO2/FiO2 Ratio 2.50 ABG HCO3 31.7 H ABG O2 Saturation 96.4 ABG O2 Content 16.3 ABG Base Excess 5.0 A-a Gradient 100.7 Oxyhemoglobin 96.0 Carboxyhemoglobin 0.7 Methemoglobin 0.1 Reduced Hemoglobin 3.2 Total Hemoglobin 12.0 O2 Delivery Device Nasal cannula O2 Liters/Min 4.0 Minute Volume Vent Rate Vent Mode FiO2 36 Tidal Volume PEEP Peak Inspir Pressure Pressure Support Sodium 144 Potassium 4.3 Chloride 106 Carbon Dioxide 37 H Anion Gap 1 L BUN 25 H Creatinine 1.20 H Estim Creat Clear Calc 58 Estimated GFR 45 L Glucose 81 POC Capillary Glucose 74 Calcium 8.7 Phosphorus 4.0 Magnesium 1.9 Total Bilirubin 1.2 AST 38 H ALT 25 Alkaline Phosphatase 109 Total Protein 6.0 L Albumin 3.3 L 11/03/24 11/03/24 11/03/24 06:19 06:21 12:10 WBC RBC Hgb Hct MCV MCH MCHC RDW Plt Count MPV Immature Gran % (Auto) Neut % (Auto) Lymph % (Auto) [place] % (Auto) Eos % (Auto) Baso % (Auto) Lymph # (Auto) [place] # (Auto) Eos # (Auto) Baso # (Auto) Abs Immat Gran (auto) Absolute Neuts (auto) Absolute Nucleated RBC Nucleated RBC % Puncture Site ABG pH ABG pCO2 ABG pO2 ABG PO2/FiO2 Ratio ABG HCO3 ABG O2 Saturation ABG O2 Content ABG Base Excess A-a Gradient Oxyhemoglobin Carboxyhemoglobin Methemoglobin Reduced Hemoglobin Total Hemoglobin O2 Delivery Device O2 Liters/Min Minute Volume Vent Rate Vent Mode FiO2 Tidal Volume PEEP Peak Inspir Pressure Pressure Support Sodium Potassium Chloride Carbon Dioxide Anion Gap BUN Creatinine Estim Creat Clear Calc Estimated GFR Glucose POC Capillary Glucose 47 L* 72 77 Calcium Phosphorus Magnesium Total Bilirubin AST ALT Alkaline Phosphatase Total Protein Albumin Quality VTE Prophylaxis VTE prophylaxis: mechanical ordered and pharmacologic ordered
--- NOTE | 2024-11-03 12:56 | PC.NURSE ---
Patient failed bedside swallow evaluation this AM. Speech therapist recommends modified barium swallow follow through. Cloth Printing Inspector notified at time of recommendations. Per speech therapist, the recliner in which barium studies are performed is not rated for weight >250-300 lbs. If patient can tolerate standing for 5-10 minutes they will be able to complete. At this time patient is due to be seen and evaluated by PT and OT. Will assess appropriateness for standing. Currently surgical services and outside parts salesman recommend resuming tube feeds per NG following previous diet/rate/flushes. Patient states she does not feel she needs this study completed despite medical recommendations.
--- NOTE | 2024-11-03 14:43 | P.PNIM_ITS ---
Progress Note: A&P Assessment and Plan (1) Acute respiratory failure: Code(s): J96.00 - Acute respiratory failure, unspecified whether with hypoxia or hypercapnia Status: Acute Assessment and Plan: Acute Respiratory failure secondary to general anaesthesia encephalopathy and small-bowel obstruction patient extubated successfully and now on 3 liters oxygen 11/02: Successfully extubated CXR showed pulm edema on Lasix (2) Small bowel obstruction: Code(s): K56.609 - Unspecified intestinal obstruction, unspecified as to partial versus complete obstruction Status: Acute Assessment and Plan: Status post Exploratory laparotomy, lysis of adhesions, detorsion of closed loop small bowel obstruction npo. management of surgical incision wound as per General surgery -continued modified diet per SPeech therapy and advance per evaluation (3) VEE (acute kidney injury): Code(s): N17.9 - Acute kidney failure, unspecified Status: Acute Assessment and Plan: Patient has developed postop VEE which could be secondary to fluid shifting, as sepsis, hypovolemia s/p IVF -creatinine improving, Cr 1.2 today monitor (4) Hypothyroidism: Code(s): E03.9 - Hypothyroidism, unspecified Status: Acute Assessment and Plan: Continue IV levothyroxine (5) Enteritis: Code(s): K52.9 - Noninfective gastroenteritis and colitis, unspecified Status: Acute Assessment and Plan: Completed a course of Zosyn (6) Acute UTI: Code(s): N39.0 - Urinary tract infection, site not specified Status: Acute Assessment and Plan: UA suggestive of UTI. Blood cultures negative Urin n cultures growing pansensitive E coli Completed a course of Zosyn Plan DVT prophylaxis -Lovenox Stress ulcer prophylaxis -PPI Code Status - Full Code Subjective Date/time seen: 11/03/24 14:43 Interval history: Patient comfortable at bedside now on modified diet Review of Systems Review of Systems: All systems reviewed & are unremarkable except as noted in HPI and below ROS unobtainable: Yes unobtainable due to endotracheal tube, unobtainable due to medical condition and unobtainable due to mental status Exam Narrative: General: Morbidly obese patient, is awake, alert, oriented, in no acute distress HEENT: Pupils equal and reactive, sclera is clear Lungs/Chest: Clear to auscultation bilaterally, decreased at bases, adequate air entry. Cardiac: Sinus tachycardia Abdomen: Hypoactive bowel sounds Morbidly Obese. Soft. NT. ND. Incision in the midline covered with dressing Extremities: Bilateral edema and chronic venous stasis changes with dry flaky skin : Ann in place Neurologic: patient is awake, alert, answers to questions appropriately and follows simple commands in all extremities Objective Data Vital Signs Vital Signs: Vital Signs - 24 hr 11/02/24 15:40 11/02/24 15:50 11/02/24 15:53 Temperature Pulse Rate 72 Respiratory Rate Blood Pressure Pulse Oximetry 97 93 94 Oxygen Delivery Nasal Cannula Nasal Cannula Nasal Cannula Oxygen Flow Rate 6 4 4 Fraction of Inspired Oxygen 44 36 11/02/24 16:00 11/02/24 16:00 11/02/24 18:00 Temperature Pulse Rate 69 70 64 Respiratory Rate 18 Blood Pressure 135/62 Pulse Oximetry 92 Oxygen Delivery Oxygen Flow Rate Fraction of Inspired Oxygen 11/02/24 18:00 11/02/24 20:00 11/02/24 20:00 Temperature 98.0 F Pulse Rate 67 62 Respiratory Rate 18 Blood Pressure 137/70 144/67 H Pulse Oximetry 97 95 93 Oxygen Delivery Nasal Cannula Oxygen Flow Rate 4 Fraction of Inspired Oxygen 11/02/24 20:00 11/02/24 20:24 11/02/24 20:27 Temperature Pulse Rate 63 63 Respiratory Rate 24 H Blood Pressure Pulse Oximetry 95 Oxygen Delivery Nasal Cannula Oxygen Flow Rate 4 Fraction of Inspired Oxygen 11/02/24 20:34 11/02/24 22:00 11/02/24 22:00 Temperature Pulse Rate 65 74 74 Respiratory Rate 24 H 19 Blood Pressure 135/72 Pulse Oximetry 94 Oxygen Delivery Oxygen Flow Rate Fraction of Inspired Oxygen 11/03/24 00:00 11/03/24 00:00 11/03/24 00:00 Temperature 98.4 F Pulse Rate 65 65 Respiratory Rate 17 Blood Pressure 142/66 H Pulse Oximetry 94 94 Oxygen Delivery Nasal Cannula Oxygen Flow Rate 4 Fraction of Inspired Oxygen 11/03/24 02:00 11/03/24 02:00 11/03/24 02:40 Temperature Pulse Rate 58 L 58 L 60 Respiratory Rate 19 19 Blood Pressure 157/75 H Pulse Oximetry 96 Oxygen Delivery Oxygen Flow Rate Fraction of Inspired Oxygen 11/03/24 02:50 11/03/24 04:00 11/03/24 04:00 Temperature 98.2 F Pulse Rate 606 H 69 Respiratory Rate 19 24 H Blood Pressure 141/66 H Pulse Oximetry 95 95 Oxygen Delivery Nasal Cannula Oxygen Flow Rate 4 Fraction of Inspired Oxygen 11/03/24 04:00 11/03/24 06:00 11/03/24 06:00 Temperature Pulse Rate 67 58 L 58 L Respiratory Rate 18 Blood Pressure 127/49 L Pulse Oximetry 93 Oxygen Delivery Oxygen Flow Rate Fraction of Inspired Oxygen 11/03/24 07:25 11/03/24 07:25 11/03/24 07:32 Temperature Pulse Rate 60 60 58 L Respiratory Rate 18 18 18 Blood Pressure Pulse Oximetry 96 Oxygen Delivery Nasal Cannula Oxygen Flow Rate 4 Fraction of Inspired Oxygen 11/03/24 08:00 11/03/24 08:00 11/03/24 10:00 Temperature 97.7 F Pulse Rate 64 68 67 Respiratory Rate 14 19 Blood Pressure 154/77 H 113/95 H Pulse Oximetry 96 100 Oxygen Delivery Oxygen Flow Rate Fraction of Inspired Oxygen 11/03/24 10:00 11/03/24 12:00 11/03/24 12:00 Temperature 98.7 F Pulse Rate 61 63 65 Respiratory Rate 18 Blood Pressure 139/87 Pulse Oximetry 97 Oxygen Delivery Oxygen Flow Rate Fraction of Inspired Oxygen 11/03/24 13:15 11/03/24 13:25 Temperature Pulse Rate 59 L 63 Respiratory Rate 18 18 Blood Pressure Pulse Oximetry Oxygen Delivery Oxygen Flow Rate Fraction of Inspired Oxygen Intake/Output Intake/Output: Intake & Output 10/31/24 11/01/24 11/02/24 11/03/24 23:59 23:59 23:59 23:59 Intake Total 1682.8 150 864 Output Total 2300 1775 3100 955 [facility]617.2 -1625 -2236 -955 Meds/Results Medications: Active Medications Generic Name Dose Route Start Last Admin Trade Name Freq PRN Reason Stop Dose Admin Albuterol/Ipratropium 3 ml 11/02/24 14:00 11/03/24 13:13 Ipratropium 0.5 Mg/Albuterol Sulfate 2.5 Mg Ampul.Neb 3 Ml INHALATION 3 ml Q6HRT YFN Administration Dextrose 12.5 gm 10/27/24 16:50 11/02/24 17:45 Dextrose 50% 25 Gm/50 Ml Syringe IV PUSH 12.5 gm PRN PRN Administration Hypoglycemia Protocol Enoxaparin Sodium 40 mg 10/28/24 09:00 11/03/24 08:38 Enoxaparin 40 Mg/0.4 Ml Syringe SUB-Q 40 mg DAILY YFN Administration Glucagon 1 mg 10/27/24 16:50 Glucagon For Inj 1 Mg Vial IM PRN PRN Hypoglycemia Protocol Glucose 15 gm 10/27/24 16:50 Glucose Oral Gel 15 Gm Of Glucse In 37.5 Gm Tube PO PRN PRN Hypoglycemia Protocol Hydromorphone HCl 0.5 mg 10/27/24 03:39 10/27/24 08:14 Hydromorphone Hcl Inj (*Crx) 1 Mg/Ml Syr IV PUSH 0.5 mg Q4H PRN Administration Pain Rated 7-10 Dextrose 1,000 mls @ 100 mls/hr 10/27/24 16:50 Dextrose 5% 1,000 Ml IVPB PRN PRN Hypoglycemia Protocol Insulin Aspart 3 - 6 units 10/27/24 18:00 11/03/24 12:21 Insulin Aspart (*Bkc) 100 Units/Ml SUB-Q Not Given Q6HR YFN Protocol Levothyroxine Sodium 70 mcg 10/28/24 09:30 11/03/24 06:46 Levothyroxine Sodium Inj 100 Mcg/5 Ml Vial IV PUSH 70 mcg DAILY@0630 YFN Administration Multi-Ingred Cream/Lotion/Oil/Oint 1 applic 10/29/24 12:30 11/03/24 08:39 Eucerin Cream 454 Gm Jar TOPICAL 1 applic DAILY YFN Administration Ondansetron HCl 4 mg 10/27/24 03:39 Ondansetron Inj 4 Mg/2 Ml Vial IV PUSH Q4H PRN Nausea Pantoprazole Sodium 40 mg 10/28/24 09:00 11/03/24 08:39 Pantoprazole Sodium Iv 40 Mg Vial IV PUSH 40 mg QAM YFN Administration Sodium Bicarbonate 650 mg 10/30/24 09:00 11/03/24 08:39 Sodium Bicarbonate Tab 650 Mg Tablet FEED TUBE 650 mg BID YFN Administration Sodium Chloride 10 ml 10/28/24 14:00 11/03/24 06:45 Central Line Flush IV PUSH 10 ml Q8HR YFN Administration Sodium Chloride 20 ml 10/28/24 07:52 Central Line Flush IV PUSH PRN PRN after blood draws Radiology Results: ITS Impressions Abdomen/Pelvis CT 10/27/24 05:48 Impression: Multiple mildly distended small bowel is within central mesenteric haziness/inflammatory change. Correlate for early/partial small bowel obstruction versus possibly enteritis and reactive ileus. Cholelithiasis. Small Bowel X-Ray 10/27/24 13:04 IMPRESSION: 1. Closed-loop small bowel obstruction. ADDENDUM: 10/27/24 1914 I called this result to Dr. Morales. Abdomen X-Ray 10/27/24 17:09 IMPRESSION: NO ACUTE ABDOMINAL FINDINGS. Possible stones in the right kidney. Chest X-Ray 11/02/24 11:28 Impression: 1: Persistent mild interstitial edema. Labs Labs: Laboratory Results - last 24 hr 11/02/24 11/02/24 11/03/24 17:20 18:34 00:49 WBC RBC Hgb Hct MCV MCH MCHC RDW Plt Count MPV Immature Gran % (Auto) Neut % (Auto) Lymph % (Auto) [place] % (Auto) Eos % (Auto) Baso % (Auto) Lymph # (Auto) [place] # (Auto) Eos # (Auto) Baso # (Auto) Abs Immat Gran (auto) Absolute Neuts (auto) Absolute Nucleated RBC Nucleated RBC % Puncture Site ABG pH ABG pCO2 ABG pO2 ABG PO2/FiO2 Ratio ABG HCO3 ABG O2 Saturation ABG O2 Content ABG Base Excess A-a Gradient Oxyhemoglobin Carboxyhemoglobin Methemoglobin Reduced Hemoglobin Total Hemoglobin O2 Delivery Device O2 Liters/Min FiO2 Sodium Potassium Chloride Carbon Dioxide Anion Gap BUN Creatinine Estim Creat Clear Calc Estimated GFR Glucose POC Capillary Glucose 85 119 H 74 Calcium Phosphorus Magnesium Total Bilirubin AST ALT Alkaline Phosphatase Total Protein Albumin 11/03/24 11/03/24 11/03/24 05:23 06:14 06:19 WBC 12.6 H RBC 3.78 L Hgb 10.6 L Hct 35.1 L MCV 92.9 MCH 28.0 MCHC 30.2 L RDW 16.8 H Plt Count 248 MPV 9.5 Immature Gran % (Auto) 2.4 H Neut % (Auto) 70.9 Lymph % (Auto) 11.2 L [place] % (Auto) 8.5 Eos % (Auto) 6.5 H Baso % (Auto) 0.5 Lymph # (Auto) 1.41 [place] # (Auto) 1.1 H Eos # (Auto) 0.8 H Baso # (Auto) 0.1 Abs Immat Gran (auto) 0.30 H Absolute Neuts (auto) 8.9 H Absolute Nucleated RBC 0.000 Nucleated RBC % 0.0 Puncture Site Left radial ABG pH 7.364 ABG pCO2 56.9 H ABG pO2 90.0 ABG PO2/FiO2 Ratio 2.50 ABG HCO3 31.7 H ABG O2 Saturation 96.4 ABG O2 Content 16.3 ABG Base Excess 5.0 A-a Gradient 100.7 Oxyhemoglobin 96.0 Carboxyhemoglobin 0.7 Methemoglobin 0.1 Reduced Hemoglobin 3.2 Total Hemoglobin 12.0 O2 Delivery Device Nasal cannula O2 Liters/Min 4.0 FiO2 36 Sodium 144 Potassium 4.3 Chloride 106 Carbon Dioxide 37 H Anion Gap 1 L BUN 25 H Creatinine 1.20 H Estim Creat Clear Calc 58 Estimated GFR 45 L Glucose 81 POC Capillary Glucose 47 L* Calcium 8.7 Phosphorus 4.0 Magnesium 1.9 Total Bilirubin 1.2 AST 38 H ALT 25 Alkaline Phosphatase 109 Total Protein 6.0 L Albumin 3.3 L 11/03/24 11/03/24 06:21 12:10 WBC RBC Hgb Hct MCV MCH MCHC RDW Plt Count MPV Immature Gran % (Auto) Neut % (Auto) Lymph % (Auto) [place] % (Auto) Eos % (Auto) Baso % (Auto) Lymph # (Auto) [place] # (Auto) Eos # (Auto) Baso # (Auto) Abs Immat Gran (auto) Absolute Neuts (auto) Absolute Nucleated RBC Nucleated RBC % Puncture Site ABG pH ABG pCO2 ABG pO2 ABG PO2/FiO2 Ratio ABG HCO3 ABG O2 Saturation ABG O2 Content ABG Base Excess A-a Gradient Oxyhemoglobin Carboxyhemoglobin Methemoglobin Reduced Hemoglobin Total Hemoglobin O2 Delivery Device O2 Liters/Min FiO2 Sodium Potassium Chloride Carbon Dioxide Anion Gap BUN Creatinine Estim Creat Clear Calc Estimated GFR Glucose POC Capillary Glucose 72 77 Calcium Phosphorus Magnesium Total Bilirubin AST ALT Alkaline Phosphatase Total Protein Albumin Quality VTE Prophylaxis VTE prophylaxis: mechanical ordered and pharmacologic ordered
[2024-11-03 17:05] LABS: Glucose Point of Care 77 mg/dl (65-105)
--- NOTE | 2024-11-03 19:05 | PC.NURSE ---
This patient, Juen Petty, was received from [ICU-6 ] on 11/03/24 at 1908. Patient/family oriented to unit policies and routines. Reported received from SALONI Wright @ [id number]
[2024-11-04] VITALS (27 sets, daily range): BP systolic 120–155; BP diastolic 48–65; PULSE 65–87; RESP 16–24; TEMP 36.4–36.7; O2SAT 85–99
[2024-11-04 00:53] LABS: Glucose Point of Care 89 mg/dl (65-105)
[2024-11-04] MEDS: IPRATROPIUM 0.5 MG/ALBUTEROL SULFATE 2.5 MG AMPUL.NEB 3 ML INHALATION ×4 (02:18→20:54)
[2024-11-04] MEDS: CENTRAL LINE FLUSH 10 ML IV PUSH ×3 (05:27→22:39)
[2024-11-04] MEDS: LEVOTHYROXINE SODIUM INJ 100 MCG/5 ML VIAL 70 MCG IV PUSH (05:27)
[2024-11-04] MEDS: CENTRAL LINE FLUSH 20 ML IV PUSH ×2 (05:27→09:43)
[2024-11-04 05:58] LABS: Basophils Absolute Auto 0.1 K/mm3 (0.0-0.1); Basophils Percent Auto 0.4 % (0.2-1.2); Eosinophils Absolute Auto 0.7 K/mm3 (0-0.3); Eosinophils Percent Auto 5.1 % (0-4.4); Hematocrit 34.9 % (37.0-47.0); Hemoglobin 10.7 g/dL (12.0-15.0); Immature Granulocyte Absolute 0.33 K/mm3 (0.00-0.031); Immature Granulocyte Percent A 2.4 % (0-0.5); Lymphocytes Absolute Auto 1.53 K/mm3 (0.9-3.2); Lymphocytes Percent Auto 10.9 % (18.3-44.2); Mean Corpuscular HGB Conc 30.7 g/dl (32-36); Mean Corpuscular Hemoglobin 28.2 pg (26-34); Mean Corpuscular Volume 92.1 fl (80-100); Mean Platelet Volume 9.4 fl (7.4-10.4); Monocytes Absolute Auto 1.1 K/mm3 (0.1-0.6); Monocytes Percent Auto 7.6 % (2.6-8.5); Neutrophils Absolute Auto 10.3 K/mm3 (1.3-6.7); Neutrophils Percent Auto 73.6 % (45.5-73.1); Platelet Count Result 280 k/mm3 (150-375); Red Blood Count 3.79 M/mm3 (4.2-5.4); Red Cell Distribution Width 16.5 % (11.5-14.5)
[2024-11-04 06:09] LABS: Alanine Aminotransferase 33 U/L (6-35); Albumin Level 3.3 g/dL (3.5-5.1); Alkaline Phosphatase 123 U/L (38-126); Anion Gap -1 mmol/L (4-12); Aspartate Amino Transferase 47 U/L (14-36); Bilirubin,Total 1.1 mg/dL (0.2-1.3); Blood Urea Nitrogen 25 mg/dL (7-17); Calcium 8.6 mg/dL (8.4-10.2); Carbon Dioxide 36 mmol/L (22-30); Chloride 106 mmol/L (98-107); Estimated CRCL calculation 71 ml/min; Estimated Glomerular Filt Rate 55; Glucose 103 mg/dL (65-110); Lactic Acid Reflex 0.7 mmol/L (0.7-2.0); Magnesium 1.9 mg/dL (1.6-2.3); Potassium 3.8 mmol/L (3.4-5.0); Sodium 141 mmol/L (137-145)
[2024-11-04] MEDS: PANTOPRAZOLE SODIUM IV 40 MG VIAL IV PUSH (09:44)
[2024-11-04] MEDS: EUCERIN CREAM 454 GM JAR 1 APPLIC TOPICAL (09:44)
[2024-11-04] MEDS: ENOXAPARIN 40 MG/0.4 ML SYRINGE SUB-Q (09:44)
[2024-11-04] MEDS: SODIUM BICARBONATE TAB 650 MG TABLET FEED TUBE ×2 (09:44→22:39)
[2024-11-04 12:09] LABS: Glucose Point of Care 106 mg/dl (65-105)
--- NOTE | 2024-11-04 13:26 | PCSTNOTE ---
Please refer to the Bedside Swallow Evaluation in the EMR. Please note, silent aspiration cannot be ruled out at bedside.
--- NOTE | 2024-11-04 15:27 | PM.IMPN ---
Progress Note: A&P Assessment and Plan (1) Acute respiratory failure: Code(s): J96.00 - Acute respiratory failure, unspecified whether with hypoxia or hypercapnia Status: Acute Assessment and Plan: Acute Respiratory failure secondary to general anaesthesia encephalopathy and small-bowel obstruction patient extubated successfully and now on 3 liters oxygen 11/02: Successfully extubated CXR showed pulm edema on Lasix (2) Small bowel obstruction: Code(s): K56.609 - Unspecified intestinal obstruction, unspecified as to partial versus complete obstruction Status: Acute Assessment and Plan: Status post Exploratory laparotomy, lysis of adhesions, detorsion of closed loop small bowel obstruction npo. management of surgical incision wound as per General surgery -continued modified diet per ST (3) VEE (acute kidney injury): Code(s): N17.9 - Acute kidney failure, unspecified Status: Acute Assessment and Plan: Patient has developed postop VEE which could be secondary to fluid shifting, as sepsis, hypovolemia s/p IVF -creatinine improving, Cr 1.0 today monitor (4) Hypothyroidism: Code(s): E03.9 - Hypothyroidism, unspecified Status: Acute Assessment and Plan: Continue IV levothyroxine (5) Enteritis: Code(s): K52.9 - Noninfective gastroenteritis and colitis, unspecified Status: Acute Assessment and Plan: Completed a course of Zosyn (6) Acute UTI: Code(s): N39.0 - Urinary tract infection, site not specified Status: Acute Assessment and Plan: UA suggestive of UTI. Blood cultures negative Urin n cultures growing pansensitive E coli Completed a course of Zosyn Plan DVT prophylaxis -Lovenox Stress ulcer prophylaxis -PPI Code Status - Full Code Subjective Date/time seen: 11/04/24 15:27 Interval history: Patient comfortable at bedside now cleared for diet per Speech on rectal tube, likely diarrhea from tube feeding Review of Systems Review of Systems: All systems reviewed & are unremarkable except as noted in HPI and below ROS unobtainable: Yes unobtainable due to endotracheal tube, unobtainable due to medical condition and unobtainable due to mental status Exam Narrative: General: Morbidly obese patient, is awake, alert, oriented, in no acute distress HEENT: Pupils equal and reactive, sclera is clear Lungs/Chest: Clear to auscultation bilaterally, decreased at bases, adequate air entry. Cardiac: Sinus tachycardia Abdomen: Hypoactive bowel sounds Morbidly Obese. Soft. NT. ND. Incision in the midline covered with dressing Extremities: Bilateral edema and chronic venous stasis changes with dry flaky skin : Ann in place Neurologic: patient is awake, alert, answers to questions appropriately and follows simple commands in all extremities Objective Data Vital Signs Vital Signs: Vital Signs - 24 hr 11/03/24 16:00 11/03/24 16:00 11/03/24 18:00 Temperature 98.6 F Pulse Rate 67 67 71 Respiratory Rate 21 H Blood Pressure 150/54 H Pulse Oximetry 94 Oxygen Delivery Oxygen Flow Rate Fraction of Inspired Oxygen 11/03/24 20:00 11/03/24 20:00 11/03/24 20:20 Temperature 97.8 F Pulse Rate 75 77 75 Respiratory Rate 20 20 Blood Pressure 123/54 L Pulse Oximetry 94 94 Oxygen Delivery Nasal Cannula Oxygen Flow Rate 2 Fraction of Inspired Oxygen 11/03/24 20:30 11/03/24 20:31 11/03/24 20:41 Temperature Pulse Rate 73 76 Respiratory Rate 18 18 Blood Pressure Pulse Oximetry 91 Oxygen Delivery Nasal Cannula Oxygen Flow Rate 2 Fraction of Inspired Oxygen 11/03/24 22:00 11/04/24 00:00 11/04/24 00:00 Temperature 97.9 F Pulse Rate 79 72 78 Respiratory Rate 20 Blood Pressure 135/48 L Pulse Oximetry 91 Oxygen Delivery Oxygen Flow Rate Fraction of Inspired Oxygen 11/04/24 00:40 11/04/24 02:00 11/04/24 02:19 Temperature Pulse Rate 72 77 70 Respiratory Rate 20 16 Blood Pressure Pulse Oximetry 91 Oxygen Delivery Nasal Cannula Oxygen Flow Rate 2 Fraction of Inspired Oxygen 11/04/24 02:30 11/04/24 04:00 11/04/24 04:52 Temperature 97.8 F Pulse Rate 72 86 86 Respiratory Rate 16 20 Blood Pressure 155/65 H Pulse Oximetry 92 Oxygen Delivery Oxygen Flow Rate Fraction of Inspired Oxygen 11/04/24 04:55 11/04/24 06:00 11/04/24 08:00 Temperature 97.6 F Pulse Rate 86 77 73 Respiratory Rate 20 24 H Blood Pressure 139/60 Pulse Oximetry 92 97 Oxygen Delivery Nasal Cannula Oxygen Flow Rate 2 Fraction of Inspired Oxygen 11/04/24 08:19 11/04/24 08:19 11/04/24 08:40 Temperature Pulse Rate 71 Respiratory Rate 18 Blood Pressure Pulse Oximetry 96 Oxygen Delivery Nasal Cannula Nasal Cannula Oxygen Flow Rate 2 2 Fraction of Inspired Oxygen 28 11/04/24 09:57 11/04/24 11:56 11/04/24 14:10 Temperature 97.5 F L Pulse Rate 80 77 65 Respiratory Rate 18 24 H 20 Blood Pressure 120/55 L Pulse Oximetry 90 Oxygen Delivery Oxygen Flow Rate Fraction of Inspired Oxygen 11/04/24 14:23 Temperature Pulse Rate 70 Respiratory Rate 20 Blood Pressure Pulse Oximetry Oxygen Delivery Oxygen Flow Rate Fraction of Inspired Oxygen Intake/Output Intake/Output: Intake & Output 11/01/24 11/02/24 11/03/24 11/04/24 23:59 23:59 23:59 23:59 Intake Total 150 864 186 412 Output Total 1775 3100 1630 620 [facility] -1625 -2236 -1444 -208 Meds/Results Medications: Active Medications Generic Name Dose Route Start Last Admin Trade Name Freq PRN Reason Stop Dose Admin Albuterol/Ipratropium 3 ml 11/02/24 14:00 11/04/24 14:10 Ipratropium 0.5 Mg/Albuterol Sulfate 2.5 Mg Ampul.Neb 3 Ml INHALATION 3 ml Q6HRT YFN Administration Dextrose 12.5 gm 10/27/24 16:50 11/02/24 17:45 Dextrose 50% 25 Gm/50 Ml Syringe IV PUSH 12.5 gm PRN PRN Administration Hypoglycemia Protocol Enoxaparin Sodium 40 mg 10/28/24 09:00 11/04/24 09:44 Enoxaparin 40 Mg/0.4 Ml Syringe SUB-Q 40 mg DAILY YFN Administration Glucagon 1 mg 10/27/24 16:50 Glucagon For Inj 1 Mg Vial IM PRN PRN Hypoglycemia Protocol Glucose 15 gm 10/27/24 16:50 Glucose Oral Gel 15 Gm Of Glucse In 37.5 Gm Tube PO PRN PRN Hypoglycemia Protocol Hydromorphone HCl 0.5 mg 10/27/24 03:39 10/27/24 08:14 Hydromorphone Hcl Inj (*Crx) 1 Mg/Ml Syr IV PUSH 0.5 mg Q4H PRN Administration Pain Rated 7-10 Dextrose 1,000 mls @ 100 mls/hr 10/27/24 16:50 Dextrose 5% 1,000 Ml IVPB PRN PRN Hypoglycemia Protocol Insulin Aspart 3 - 6 units 10/27/24 18:00 11/04/24 08:00 Insulin Aspart (*Bkc) 100 Units/Ml SUB-Q Not Given Q6HR [facility] Protocol Levothyroxine Sodium 70 mcg 10/28/24 09:30 11/04/24 05:27 Levothyroxine Sodium Inj 100 Mcg/5 Ml Vial IV PUSH 70 mcg DAILY@0630 YFN Administration Multi-Ingred Cream/Lotion/Oil/Oint 1 applic 10/29/24 12:30 11/04/24 09:44 Eucerin Cream 454 Gm Jar TOPICAL 1 applic DAILY YFN Administration Ondansetron HCl 4 mg 10/27/24 03:39 Ondansetron Inj 4 Mg/2 Ml Vial IV PUSH Q4H PRN Nausea Pantoprazole Sodium 40 mg 10/28/24 09:00 11/04/24 09:44 Pantoprazole Sodium Iv 40 Mg Vial IV PUSH 40 mg QAM YFN Administration Sodium Bicarbonate 650 mg 10/30/24 09:00 11/04/24 09:44 Sodium Bicarbonate Tab 650 Mg Tablet FEED TUBE 650 mg BID YFN Administration Sodium Chloride 10 ml 10/28/24 14:00 11/04/24 05:27 Central Line Flush IV PUSH 10 ml Q8HR YFN Administration Sodium Chloride 20 ml 10/28/24 07:52 11/04/24 09:43 Central Line Flush IV PUSH 20 ml PRN PRN Administration after blood draws Radiology Results: ITS Impressions Abdomen/Pelvis CT 10/27/24 05:48 Impression: Multiple mildly distended small bowel is within central mesenteric haziness/inflammatory change. Correlate for early/partial small bowel obstruction versus possibly enteritis and reactive ileus. Cholelithiasis. Small Bowel X-Ray 10/27/24 13:04 IMPRESSION: 1. Closed-loop small bowel obstruction. ADDENDUM: 10/27/24 [id number] I called this result to Dr. Morales. Abdomen X-Ray 10/27/24 17:09 IMPRESSION: NO ACUTE ABDOMINAL FINDINGS. Possible stones in the right kidney. Chest X-Ray 11/02/24 11:28 Impression: 1: Persistent mild interstitial edema. Labs Labs: Laboratory Results - last 24 hr 11/03/24 11/04/24 11/04/24 17:02 00:13 05:47 WBC 14.0 H RBC 3.79 L Hgb 10.7 L Hct 34.9 L MCV 92.1 MCH 28.2 MCHC 30.7 L RDW 16.5 H Plt Count 280 MPV 9.4 Immature Gran % (Auto) 2.4 H Neut % (Auto) 73.6 H Lymph % (Auto) 10.9 L [place] % (Auto) 7.6 Eos % (Auto) 5.1 H Baso % (Auto) 0.4 Lymph # (Auto) 1.53 [place] # (Auto) 1.1 H Eos # (Auto) 0.7 H Baso # (Auto) 0.1 Abs Immat Gran (auto) 0.33 H Absolute Neuts (auto) 10.3 H Absolute Nucleated RBC 0.000 Nucleated RBC % 0.0 Sodium 141 Potassium 3.8 Chloride 106 Carbon Dioxide 36 H Anion Gap -1 L BUN 25 H Creatinine 1.00 Estim Creat Clear Calc 71 Estimated GFR 55 L Glucose 103 POC Capillary Glucose 77 89 Lactic Acid 0.7 Calcium 8.6 Magnesium 1.9 Total Bilirubin 1.1 AST 47 H ALT 33 Alkaline Phosphatase 123 Total Protein 6.0 L Albumin 3.3 L 11/04/24 12:06 WBC RBC Hgb Hct MCV MCH MCHC RDW Plt Count MPV Immature Gran % (Auto) Neut % (Auto) Lymph % (Auto) [place] % (Auto) Eos % (Auto) Baso % (Auto) Lymph # (Auto) [place] # (Auto) Eos # (Auto) Baso # (Auto) Abs Immat Gran (auto) Absolute Neuts (auto) Absolute Nucleated RBC Nucleated RBC % Sodium Potassium Chloride Carbon Dioxide Anion Gap BUN Creatinine Estim Creat Clear Calc Estimated GFR Glucose POC Capillary Glucose 106 H Lactic Acid Calcium Magnesium Total Bilirubin AST ALT Alkaline Phosphatase Total Protein Albumin Quality VTE Prophylaxis VTE prophylaxis: mechanical ordered and pharmacologic ordered
[2024-11-04 18:35] LABS: Glucose Point of Care 75 mg/dl (65-105)
--- NOTE | 2024-11-04 21:12 | WPDPN ---
Progress Note: A&P Assessment and Plan (1) Small bowel obstruction: Code(s): K56.609 - Unspecified intestinal obstruction, unspecified as to partial versus complete obstruction Status: Acute Assessment and Plan: Small-bowel obstruction has not resolved after laparotomy and adhesiolysis. She has tolerated extubation. She actually has passed her swallow test today and her nasogastric tube was removed and started on a modified soft diet as per speech therapy recommendations. Continue supportive management. She seems to be improving. Subjective Date/time seen: 11/04/24 21:12 Interval history: Patient sitting up in chair today. Rectal tube in place. Having liquid stools. She is tolerating her tube feeds via nasogastric tube. She had failed her swallow test yesterday had a continued on tube feeds. She otherwise feels pretty well. Pain her incision is okay. Her breathing is okay. Exam GI: Other: Abdomen is morbidly obese. Soft. Midline incision healing well with walter in place. No redness or drainage. Objective Data Vital Signs Vital Signs: Vital Signs - 24 hr 11/03/24 22:00 11/04/24 00:00 11/04/24 00:00 Temperature 36.6 C Pulse Rate 79 72 78 Respiratory Rate 20 Blood Pressure 135/48 L Pulse Oximetry 91 Oxygen Delivery Oxygen Flow Rate Fraction of Inspired Oxygen 11/04/24 00:40 11/04/24 02:00 11/04/24 02:19 Temperature Pulse Rate 72 77 70 Respiratory Rate 20 16 Blood Pressure Pulse Oximetry 91 Oxygen Delivery Nasal Cannula Oxygen Flow Rate 2 Fraction of Inspired Oxygen 11/04/24 02:30 11/04/24 04:00 11/04/24 04:52 Temperature 36.6 C Pulse Rate 72 86 86 Respiratory Rate 16 20 Blood Pressure 155/65 H Pulse Oximetry 92 Oxygen Delivery Oxygen Flow Rate Fraction of Inspired Oxygen 11/04/24 04:55 11/04/24 06:00 11/04/24 08:00 Temperature 36.4 C Pulse Rate 86 77 73 Respiratory Rate 20 24 H Blood Pressure 139/60 Pulse Oximetry 92 97 Oxygen Delivery Nasal Cannula Oxygen Flow Rate 2 Fraction of Inspired Oxygen 11/04/24 08:00 11/04/24 08:19 11/04/24 08:19 Temperature Pulse Rate 71 71 Respiratory Rate 18 Blood Pressure Pulse Oximetry 96 Oxygen Delivery Nasal Cannula Oxygen Flow Rate 2 Fraction of Inspired Oxygen 28 11/04/24 08:40 11/04/24 09:57 11/04/24 10:00 Temperature Pulse Rate 80 73 Respiratory Rate 18 Blood Pressure Pulse Oximetry Oxygen Delivery Nasal Cannula Oxygen Flow Rate 2 Fraction of Inspired Oxygen 11/04/24 11:56 11/04/24 12:00 11/04/24 14:10 Temperature 36.4 C L Pulse Rate 77 73 65 Respiratory Rate 24 H 20 Blood Pressure 120/55 L Pulse Oximetry 90 Oxygen Delivery Oxygen Flow Rate Fraction of Inspired Oxygen 11/04/24 14:23 11/04/24 15:48 11/04/24 16:00 Temperature 36.4 C L Pulse Rate 70 78 84 Respiratory Rate 20 24 H Blood Pressure 150/53 H Pulse Oximetry 99 Oxygen Delivery Oxygen Flow Rate Fraction of Inspired Oxygen 11/04/24 19:34 11/04/24 20:55 11/04/24 21:04 Temperature 36.7 C Pulse Rate 79 80 85 Respiratory Rate 24 H 20 20 Blood Pressure 140/61 Pulse Oximetry 97 Oxygen Delivery Oxygen Flow Rate Fraction of Inspired Oxygen 11/04/24 21:05 Temperature Pulse Rate Respiratory Rate Blood Pressure Pulse Oximetry 94 Oxygen Delivery Room Air Oxygen Flow Rate Fraction of Inspired Oxygen Intake/Output Intake/Output: Intake & Output 11/01/24 11/02/24 11/03/24 11/04/24 23:59 23:59 23:59 23:59 Intake Total 150 864 186 412 Output Total 1775 3100 1630 1120 [facility] -1625 -2236 -1444 -708 Meds/Results Medications: Active Medications Generic Name Dose Route Start Last Admin Trade Name Freq PRN Reason Stop Dose Admin Albuterol/Ipratropium 3 ml 11/02/24 14:00 11/04/24 20:54 Ipratropium 0.5 Mg/Albuterol Sulfate 2.5 Mg Ampul.Neb 3 Ml INHALATION 3 ml Q6HRT YFN Administration Amlodipine Besylate 5 mg 11/05/24 09:00 Amlodipine Besylate 5 Mg Tablet PO DAILY YFN Dextrose 12.5 gm 10/27/24 16:50 11/02/24 17:45 Dextrose 50% 25 Gm/50 Ml Syringe IV PUSH 12.5 gm PRN PRN Administration Hypoglycemia Protocol Enoxaparin Sodium 40 mg 10/28/24 09:00 11/04/24 09:44 Enoxaparin 40 Mg/0.4 Ml Syringe SUB-Q 40 mg DAILY YFN Administration Furosemide 40 mg 11/05/24 09:00 Furosemide 40 Mg Tablet PO DAILY YFN Glucagon 1 mg 10/27/24 16:50 Glucagon For Inj 1 Mg Vial IM PRN PRN Hypoglycemia Protocol Glucose 15 gm 10/27/24 16:50 Glucose Oral Gel 15 Gm Of Glucse In 37.5 Gm Tube PO PRN PRN Hypoglycemia Protocol Hydromorphone HCl 0.5 mg 10/27/24 03:39 10/27/24 08:14 Hydromorphone Hcl Inj (*Crx) 1 Mg/Ml Syr IV PUSH 0.5 mg Q4H PRN Administration Pain Rated 7-10 Dextrose 1,000 mls @ 100 mls/hr 10/27/24 16:50 Dextrose 5% 1,000 Ml IVPB PRN PRN Hypoglycemia Protocol Insulin Aspart 3 - 6 units 10/27/24 18:00 11/04/24 17:21 Insulin Aspart (*Bkc) 100 Units/Ml SUB-Q Not Given Q6HR [facility] Protocol Levothyroxine Sodium 112 mcg/ 137 mcg 11/05/24 06:30 Levothyroxine Sodium 25 mcg PO DAILY@0630 [facility] Montelukast Sodium 10 mg 11/04/24 21:00 Montelukast Sodium 10 Mg Tablet PO HS [facility] Multi-Ingred Cream/Lotion/Oil/Oint 1 applic 10/29/24 12:30 11/04/24 09:44 Eucerin Cream 454 Gm Jar TOPICAL 1 applic DAILY YFN Administration Ondansetron HCl 4 mg 10/27/24 03:39 Ondansetron Inj 4 Mg/2 Ml Vial IV PUSH Q4H PRN Nausea Pantoprazole Sodium 40 mg 10/28/24 09:00 11/04/24 09:44 Pantoprazole Sodium Iv 40 Mg Vial IV PUSH 40 mg QAM YFN Administration Sodium Bicarbonate 650 mg 10/30/24 09:00 11/04/24 09:44 Sodium Bicarbonate Tab 650 Mg Tablet FEED TUBE 650 mg BID YFN Administration Sodium Chloride 10 ml 10/28/24 14:00 11/04/24 12:00 Central Line Flush IV PUSH 10 ml Q8HR YFN Administration Sodium Chloride 20 ml 10/28/24 07:52 11/04/24 09:43 Central Line Flush IV PUSH 20 ml PRN PRN Administration after blood draws Radiology Results: ITS Impressions Abdomen/Pelvis CT 10/27/24 05:48 Impression: Multiple mildly distended small bowel is within central mesenteric haziness/inflammatory change. Correlate for early/partial small bowel obstruction versus possibly enteritis and reactive ileus. Cholelithiasis. Small Bowel X-Ray 10/27/24 13:04 IMPRESSION: 1. Closed-loop small bowel obstruction. ADDENDUM: 10/27/24 1847 I called this result to Dr. Morales. Abdomen X-Ray 10/27/24 17:09 IMPRESSION: NO ACUTE ABDOMINAL FINDINGS. Possible stones in the right kidney. Chest X-Ray 11/02/24 11:28 Impression: 1: Persistent mild interstitial edema. Labs Labs: Laboratory Results - last 24 hr 11/04/24 11/04/24 11/04/24 00:13 05:47 12:06 WBC 14.0 H RBC 3.79 L Hgb 10.7 L Hct 34.9 L MCV 92.1 MCH 28.2 MCHC 30.7 L RDW 16.5 H Plt Count 280 MPV 9.4 Immature Gran % (Auto) 2.4 H Neut % (Auto) 73.6 H Lymph % (Auto) 10.9 L [place] % (Auto) 7.6 Eos % (Auto) 5.1 H Baso % (Auto) 0.4 Lymph # (Auto) 1.53 [place] # (Auto) 1.1 H Eos # (Auto) 0.7 H Baso # (Auto) 0.1 Abs Immat Gran (auto) 0.33 H Absolute Neuts (auto) 10.3 H Absolute Nucleated RBC 0.000 Nucleated RBC % 0.0 Sodium 141 Potassium 3.8 Chloride 106 Carbon Dioxide 36 H Anion Gap -1 L BUN 25 H Creatinine 1.00 Estim Creat Clear Calc 71 Estimated GFR 55 L Glucose 103 POC Capillary Glucose 89 106 H Lactic Acid 0.7 Calcium 8.6 Magnesium 1.9 Total Bilirubin 1.1 AST 47 H ALT 33 Alkaline Phosphatase 123 Total Protein 6.0 L Albumin 3.3 L 11/04/24 18:33 WBC RBC Hgb Hct MCV MCH MCHC RDW Plt Count MPV Immature Gran % (Auto) Neut % (Auto) Lymph % (Auto) [place] % (Auto) Eos % (Auto) Baso % (Auto) Lymph # (Auto) [place] # (Auto) Eos # (Auto) Baso # (Auto) Abs Immat Gran (auto) Absolute Neuts (auto) Absolute Nucleated RBC Nucleated RBC % Sodium Potassium Chloride Carbon Dioxide Anion Gap BUN Creatinine Estim Creat Clear Calc Estimated GFR Glucose POC Capillary Glucose 75 Lactic Acid Calcium Magnesium Total Bilirubin AST ALT Alkaline Phosphatase Total Protein Albumin
[2024-11-04] MEDS: MONTELUKAST SODIUM 10 MG TABLET PO (22:39)
[2024-11-05] VITALS (22 sets, daily range): BP systolic 109–138; BP diastolic 42–66; PULSE 64–100; RESP 16–24; TEMP 36.2–36.9; O2SAT 88–100
[2024-11-05 00:39] LABS: Glucose Point of Care 76 mg/dl (65-105)
[2024-11-05] MEDS: IPRATROPIUM 0.5 MG/ALBUTEROL SULFATE 2.5 MG AMPUL.NEB 3 ML INHALATION ×4 (01:33→18:09)
[2024-11-05 05:07] LABS: Hematocrit 36.5 % (37.0-47.0); Hemoglobin 10.9 g/dL (12.0-15.0); Mean Corpuscular HGB Conc 29.9 g/dl (32-36); Mean Corpuscular Hemoglobin 27.6 pg (26-34); Mean Corpuscular Volume 92.4 fl (80-100); Mean Platelet Volume 9.5 fl (7.4-10.4); Platelet Count Result 297 k/mm3 (150-375); Red Blood Count 3.95 M/mm3 (4.2-5.4); Red Cell Distribution Width 16.5 % (11.5-14.5); White Blood Count 11.1 K/mm3 (4.5-10.0)
[2024-11-05 05:36] LABS: Anisocytosis 1+; Atypical Lymphocytes Present; Eosinophils Absolute Manual 0.77 K/mm3 (0.02-0.50); Eosinophils Percent Manual 7 % (0-4); Hypochromasia 1+; Lymphocytes Absolute Manual 1.99 K/mm3 (1.1-4.5); Monocytes Absolute Manual 0.44 K/mm3 (0.1-0.90); Monocytes Percent Manual 4 % (3-9); Neutrophils Percent Manual 71 % (46-73); Platelet Estimate Adequate (Adequate); Schistocytes None Seen; Smudge Cells PRESENT; Total Cells Counted 100
[2024-11-05 05:38] LABS: Alanine Aminotransferase 46 U/L (6-35); Albumin Level 3.3 g/dL (3.5-5.1); Alkaline Phosphatase 130 U/L (38-126); Anion Gap 1 mmol/L (4-12); Aspartate Amino Transferase 56 U/L (14-36); Blood Urea Nitrogen 21 mg/dL (7-17); Calcium 8.6 mg/dL (8.4-10.2); Carbon Dioxide 33 mmol/L (22-30); Chloride 106 mmol/L (98-107); Estimated CRCL calculation 65 ml/min; Estimated Glomerular Filt Rate 49; Glucose 79 mg/dL (65-110); Potassium 3.8 mmol/L (3.4-5.0); Sodium 140 mmol/L (137-145)
[2024-11-05 05:44] LABS: Glucose Point of Care 80 mg/dl (65-105)
[2024-11-05] MEDS: LEVOTHYROXINE SODIUM 112 MCG, LEVOTHYROXINE SODIUM 25 MCG 137 MCG PO (06:56)
[2024-11-05] MEDS: SODIUM BICARBONATE TAB 650 MG TABLET FEED TUBE ×2 (09:05→16:28)
[2024-11-05] MEDS: FUROSEMIDE 40 MG TABLET PO (09:05)
[2024-11-05] MEDS: PANTOPRAZOLE SODIUM IV 40 MG VIAL IV PUSH (09:05)
[2024-11-05] MEDS: ENOXAPARIN 40 MG/0.4 ML SYRINGE SUB-Q (09:05)
[2024-11-05] MEDS: amLODIPine BESYLATE 5 MG TABLET PO (09:05)
[2024-11-05] MEDS: EUCERIN CREAM 454 GM JAR 1 APPLIC TOPICAL (09:06)
--- NOTE | 2024-11-05 10:10 | PC.NURSE ---
Transfer received from IMU room 204 to room 341 per hospital bed.
--- NOTE | 2024-11-05 11:05 | PM.IMPN ---
Progress Note: A&P Assessment and Plan (1) Acute respiratory failure: Code(s): J96.00 - Acute respiratory failure, unspecified whether with hypoxia or hypercapnia Status: Acute Assessment and Plan: Acute Respiratory failure secondary to general anaesthesia encephalopathy and small-bowel obstruction patient extubated successfully and now on 3 liters oxygen 11/02: Successfully extubated CXR showed pulm edema on Lasix (2) Small bowel obstruction: Code(s): K56.609 - Unspecified intestinal obstruction, unspecified as to partial versus complete obstruction Status: Acute Assessment and Plan: Status post Exploratory laparotomy, lysis of adhesions, detorsion of closed loop small bowel obstruction management of surgical incision wound as per General surgery -continued modified diet per ST (3) VEE (acute kidney injury): Code(s): N17.9 - Acute kidney failure, unspecified Status: Acute Assessment and Plan: Patient has developed postop VEE which could be secondary to fluid shifting, as sepsis, hypovolemia s/p IVF -creatinine improving, Cr 1.0 today monitor (4) Hypothyroidism: Code(s): E03.9 - Hypothyroidism, unspecified Status: Acute Assessment and Plan: Continue IV levothyroxine (5) Enteritis: Code(s): K52.9 - Noninfective gastroenteritis and colitis, unspecified Status: Acute Assessment and Plan: Completed a course of Zosyn (6) Acute UTI: Code(s): N39.0 - Urinary tract infection, site not specified Status: Acute Assessment and Plan: UA suggestive of UTI. Blood cultures negative Urin n cultures growing pansensitive E coli Completed a course of Zosyn Plan Diarrhea likely from tube feeding now on po diet monitor DVT prophylaxis -Lovenox Stress ulcer prophylaxis -PPI Code Status - Full Code Subjective Date/time seen: 11/05/24 11:05 Interval history: Patient comfortable at bedside Now on diet Rectal tube was not draining feces today will monitor one more day . Review of Systems Review of Systems: All systems reviewed & are unremarkable except as noted in HPI and below ROS unobtainable: Yes unobtainable due to endotracheal tube, unobtainable due to medical condition and unobtainable due to mental status Exam Narrative: General: Morbidly obese patient, is awake, alert, oriented, in no acute distress HEENT: Pupils equal and reactive, sclera is clear Lungs/Chest: Clear to auscultation bilaterally, decreased at bases, adequate air entry. Cardiac: Sinus tachycardia Abdomen: Hypoactive bowel sounds Morbidly Obese. Soft. NT. ND. Incision in the midline covered with dressing Extremities: Bilateral edema and chronic venous stasis changes with dry flaky skin : Ann in place Neurologic: patient is awake, alert, answers to questions appropriately and follows simple commands in all extremities Objective Data Vital Signs Vital Signs: Vital Signs - 24 hr 11/04/24 11:56 11/04/24 12:00 11/04/24 14:10 Temperature 97.5 F L Pulse Rate 77 73 65 Respiratory Rate 24 H 20 Blood Pressure 120/55 L Pulse Oximetry 90 Oxygen Delivery Oxygen Flow Rate Fraction of Inspired Oxygen 11/04/24 14:23 11/04/24 15:48 11/04/24 16:00 Temperature 97.5 F L Pulse Rate 70 78 84 Respiratory Rate 20 24 H Blood Pressure 150/53 H Pulse Oximetry 99 Oxygen Delivery Oxygen Flow Rate Fraction of Inspired Oxygen 11/04/24 19:34 11/04/24 20:00 11/04/24 20:00 Temperature 98.1 F Pulse Rate 79 79 83 Respiratory Rate 24 H 24 H Blood Pressure 140/61 Pulse Oximetry 97 97 Oxygen Delivery Room Air Oxygen Flow Rate Fraction of Inspired Oxygen 11/04/24 20:55 11/04/24 21:04 11/04/24 21:05 Temperature Pulse Rate 80 85 Respiratory Rate 20 20 Blood Pressure Pulse Oximetry 94 Oxygen Delivery Room Air Oxygen Flow Rate Fraction of Inspired Oxygen 11/04/24 22:00 11/04/24 22:35 11/04/24 23:00 Temperature Pulse Rate 87 84 82 Respiratory Rate 22 H 20 Blood Pressure Pulse Oximetry 85 L 98 Oxygen Delivery Room Air Nasal Cannula Oxygen Flow Rate 2 Fraction of Inspired Oxygen 11/05/24 00:00 11/05/24 00:00 11/05/24 00:20 Temperature 98.5 F Pulse Rate 82 80 82 Respiratory Rate 22 H 22 H Blood Pressure 125/42 L Pulse Oximetry 95 95 Oxygen Delivery Nasal Cannula Oxygen Flow Rate 2 Fraction of Inspired Oxygen 11/05/24 01:33 11/05/24 01:42 11/05/24 01:45 Temperature Pulse Rate 70 74 71 Respiratory Rate 20 20 20 Blood Pressure Pulse Oximetry 96 Oxygen Delivery Nasal Cannula Oxygen Flow Rate 2 Fraction of Inspired Oxygen 11/05/24 02:00 11/05/24 04:00 11/05/24 04:00 Temperature Pulse Rate 78 74 72 Respiratory Rate 23 H Blood Pressure Pulse Oximetry 98 Oxygen Delivery Nasal Cannula Oxygen Flow Rate 1 Fraction of Inspired Oxygen 11/05/24 04:14 11/05/24 04:30 11/05/24 06:00 Temperature 97.9 F Pulse Rate 74 77 64 Respiratory Rate 23 H 22 H Blood Pressure 138/57 L Pulse Oximetry 98 98 Oxygen Delivery Room Air Oxygen Flow Rate Fraction of Inspired Oxygen 11/05/24 06:30 11/05/24 07:00 11/05/24 08:00 Temperature Pulse Rate 65 69 69 Respiratory Rate 24 H 20 20 Blood Pressure Pulse Oximetry 88 L 97 100 Oxygen Delivery Room Air Nasal Cannula Room Air Oxygen Flow Rate 1 Fraction of Inspired Oxygen 28 11/05/24 08:03 11/05/24 09:13 11/05/24 09:13 Temperature 97.8 F Pulse Rate 64 100 Respiratory Rate 22 H 20 Blood Pressure 137/52 L Pulse Oximetry 100 100 Oxygen Delivery Nasal Cannula Oxygen Flow Rate 2 Fraction of Inspired Oxygen 11/05/24 09:22 Temperature Pulse Rate 69 Respiratory Rate 20 Blood Pressure Pulse Oximetry Oxygen Delivery Oxygen Flow Rate Fraction of Inspired Oxygen Intake/Output Intake/Output: Intake & Output 11/02/24 11/03/24 11/04/24 11/05/24 23:59 23:59 23:59 23:59 Intake Total 864 186 412 300 Output Total 3100 1630 1170 730 [facility] -2236 -1444 -758 -430 Meds/Results Medications: Active Medications Generic Name Dose Route Start Last Admin Trade Name Freq PRN Reason Stop Dose Admin Albuterol/Ipratropium 3 ml 11/02/24 14:00 11/05/24 09:10 Ipratropium 0.5 Mg/Albuterol Sulfate 2.5 Mg Ampul.Neb 3 Ml INHALATION 3 ml Q6HRT YFN Administration Amlodipine Besylate 5 mg 11/05/24 09:00 11/05/24 09:05 Amlodipine Besylate 5 Mg Tablet PO 5 mg DAILY YFN Administration Dextrose 12.5 gm 10/27/24 16:50 11/02/24 17:45 Dextrose 50% 25 Gm/50 Ml Syringe IV PUSH 12.5 gm PRN PRN Administration Hypoglycemia Protocol Enoxaparin Sodium 40 mg 10/28/24 09:00 11/05/24 09:05 Enoxaparin 40 Mg/0.4 Ml Syringe SUB-Q 40 mg DAILY YFN Administration Furosemide 40 mg 11/05/24 09:00 11/05/24 09:05 Furosemide 40 Mg Tablet PO 40 mg DAILY YFN Administration Glucagon 1 mg 10/27/24 16:50 Glucagon For Inj 1 Mg Vial IM PRN PRN Hypoglycemia Protocol Glucose 15 gm 10/27/24 16:50 Glucose Oral Gel 15 Gm Of Glucse In 37.5 Gm Tube PO PRN PRN Hypoglycemia Protocol Hydromorphone HCl 0.5 mg 10/27/24 03:39 10/27/24 08:14 Hydromorphone Hcl Inj (*Crx) 1 Mg/Ml Syr IV PUSH 0.5 mg Q4H PRN Administration Pain Rated 7-10 Dextrose 1,000 mls @ 100 mls/hr 10/27/24 16:50 Dextrose 5% 1,000 Ml IVPB PRN PRN Hypoglycemia Protocol Insulin Aspart 3 - 6 units 10/27/24 18:00 11/05/24 06:54 Insulin Aspart (*Bkc) 100 Units/Ml SUB-Q Not Given Q6HR YFN Protocol Levothyroxine Sodium 112 mcg/ 137 mcg 11/05/24 06:30 11/05/24 06:56 Levothyroxine Sodium 25 mcg PO 137 mcg DAILY@0630 YFN Administration Miscellaneous Information 1 each 11/05/24 00:01 Dilauded Needs To Be Renewed Or It Will Automatically Discontinue. XX 12/05/24 00:00 CLARIFY YFN Montelukast Sodium 10 mg 11/04/24 21:00 11/04/24 22:39 Montelukast Sodium 10 Mg Tablet PO 10 mg HS YFN Administration Multi-Ingred Cream/Lotion/Oil/Oint 1 applic 10/29/24 12:30 11/05/24 09:06 Eucerin Cream 454 Gm Jar TOPICAL 1 applic DAILY YFN Administration Ondansetron HCl 4 mg 10/27/24 03:39 Ondansetron Inj 4 Mg/2 Ml Vial IV PUSH Q4H PRN Nausea Pantoprazole Sodium 40 mg 10/28/24 09:00 11/05/24 09:05 Pantoprazole Sodium Iv 40 Mg Vial IV PUSH 40 mg QAM YFN Administration Sodium Bicarbonate 650 mg 10/30/24 09:00 11/05/24 09:05 Sodium Bicarbonate Tab 650 Mg Tablet FEED TUBE 650 mg BID YFN Administration Sodium Chloride 10 ml 10/28/24 14:00 11/05/24 06:55 Central Line Flush IV PUSH Not Given Q8HR YFN Sodium Chloride 20 ml 10/28/24 07:52 11/04/24 09:43 Central Line Flush IV PUSH 20 ml PRN PRN Administration after blood draws Radiology Results: ITS Impressions Abdomen/Pelvis CT 10/27/24 05:48 Impression: Multiple mildly distended small bowel is within central mesenteric haziness/inflammatory change. Correlate for early/partial small bowel obstruction versus possibly enteritis and reactive ileus. Cholelithiasis. Small Bowel X-Ray 10/27/24 13:04 IMPRESSION: 1. Closed-loop small bowel obstruction. ADDENDUM: 10/27/24 2524 I called this result to Dr. Morales. Abdomen X-Ray 10/27/24 17:09 IMPRESSION: NO ACUTE ABDOMINAL FINDINGS. Possible stones in the right kidney. Chest X-Ray 11/02/24 11:28 Impression: 1: Persistent mild interstitial edema. Labs Labs: Laboratory Results - last 24 hr 11/04/24 11/04/24 11/05/24 12:06 18:33 00:22 WBC RBC Hgb Hct MCV MCH MCHC RDW Plt Count MPV Immature Gran % (Auto) Neut % (Auto) Lymph % (Auto) [place] % (Auto) Eos % (Auto) Baso % (Auto) Lymph # (Auto) [place] # (Auto) Eos # (Auto) Baso # (Auto) Abs Immat Gran (auto) Absolute Neuts (auto) Absolute Nucleated RBC Total Counted Neutrophils % (Manual) Lymphocytes % (Manual) Monocytes % (Manual) Eosinophils % (Manual) Nucleated RBC % Abs Lymphs (Manual) Abs Monocytes (Manual) Absolute Eos (Manual) Atypical Lymphocytes Smudge Cells Platelet Estimate Hypochromasia Anisocytosis Schistocytes Sodium Potassium Chloride Carbon Dioxide Anion Gap BUN Creatinine Estim Creat Clear Calc Estimated GFR Glucose POC Capillary Glucose 106 H 75 76 Calcium Magnesium Total Bilirubin AST ALT Alkaline Phosphatase Total Protein Albumin 11/05/24 11/05/24 11/05/24 04:24 04:26 05:41 WBC 11.1 H RBC 3.95 L Hgb 10.9 L Hct 36.5 L MCV 92.4 MCH 27.6 MCHC 29.9 L RDW 16.5 H Plt Count 297 MPV 9.5 Immature Gran % (Auto) Not Reportable Neut % (Auto) Not Reportable Lymph % (Auto) Not Reportable [place] % (Auto) Not Reportable Eos % (Auto) Not Reportable Baso % (Auto) Not Reportable Lymph # (Auto) Not Reportable [place] # (Auto) Not Reportable Eos # (Auto) Not Reportable Baso # (Auto) Not Reportable Abs Immat Gran (auto) Not Reportable Absolute Neuts (auto) Not Reportable Absolute Nucleated RBC Not Reportable Total Counted 100 Neutrophils % (Manual) 71 Lymphocytes % (Manual) 18.0 Monocytes % (Manual) 4 Eosinophils % (Manual) 7 H Nucleated RBC % Not Reportable Abs Lymphs (Manual) 1.99 Abs Monocytes (Manual) 0.44 Absolute Eos (Manual) 0.77 H Atypical Lymphocytes Present Smudge Cells Present Platelet Estimate Adequate Hypochromasia 1+ Anisocytosis 1+ Schistocytes None seen Sodium 140 Potassium 3.8 Chloride 106 Carbon Dioxide 33 H Anion Gap 1 L BUN 21 H Creatinine 1.10 H Estim Creat Clear Calc 65 Estimated GFR 49 L Glucose 79 POC Capillary Glucose 80 Calcium 8.6 Magnesium 2.0 Total Bilirubin 1.0 AST 56 H ALT 46 H Alkaline Phosphatase 130 H Total Protein 6.0 L Albumin 3.3 L Quality VTE Prophylaxis VTE prophylaxis: mechanical ordered and pharmacologic ordered
--- NOTE | 2024-11-05 11:36 | P.PN_ITS ---
Progress Note: A&P Assessment and Plan (1) Bowel obstruction: Qualifiers: Intestinal obstruction type: unspecified ileus Qualified Code(s): K56.7 - Ileus, unspecified Code(s): K56.609 - Unspecified intestinal obstruction, unspecified as to partial versus complete obstruction Status: Acute Assessment and Plan: Resolved after laparotomy and adhesiolysis. Now continued to have bowel movements a rectal tube. Passed her swallow tests now on soft consistency small bite diet. She continues to slowly improve. Continue physical therapy and occupational therapy treatments for strengthening. She continues to be a full clear lift the present time. Removing Ann catheter and rectal tube as soon as possible would be advisable. If her mobility is improved to the point that she can get to a bedside commode then that can be ordered. Continue supportive management. Subjective Date/time seen: 11/05/24 11:36 Interval history: Patient is doing well today. Has been moved from IMU to regular med/surg floor. Tolerating soft small bite diet. Rectal tube in place and is having stool output. Ann catheter remains in place. White blood cell count is down to 11,000. She feels pretty good. Therapy is working with there but she is still max assist with a Zena lift. Exam GI: Other: The abdomen is soft very obese. Midline incision is healing well without any redness or drainage. [place] are in place. Objective Data Vital Signs Vital Signs: Vital Signs - 24 hr 11/04/24 11:56 11/04/24 12:00 11/04/24 14:10 Temperature 36.4 C L Pulse Rate 77 73 65 Respiratory Rate 24 H 20 Blood Pressure 120/55 L Pulse Oximetry 90 Oxygen Delivery Oxygen Flow Rate Fraction of Inspired Oxygen 11/04/24 14:23 11/04/24 15:48 11/04/24 16:00 Temperature 36.4 C L Pulse Rate 70 78 84 Respiratory Rate 20 24 H Blood Pressure 150/53 H Pulse Oximetry 99 Oxygen Delivery Oxygen Flow Rate Fraction of Inspired Oxygen 11/04/24 19:34 11/04/24 20:00 11/04/24 20:00 Temperature 36.7 C Pulse Rate 79 79 83 Respiratory Rate 24 H 24 H Blood Pressure 140/61 Pulse Oximetry 97 97 Oxygen Delivery Room Air Oxygen Flow Rate Fraction of Inspired Oxygen 11/04/24 20:55 11/04/24 21:04 11/04/24 21:05 Temperature Pulse Rate 80 85 Respiratory Rate 20 20 Blood Pressure Pulse Oximetry 94 Oxygen Delivery Room Air Oxygen Flow Rate Fraction of Inspired Oxygen 11/04/24 22:00 11/04/24 22:35 11/04/24 23:00 Temperature Pulse Rate 87 84 82 Respiratory Rate 22 H 20 Blood Pressure Pulse Oximetry 85 L 98 Oxygen Delivery Room Air Nasal Cannula Oxygen Flow Rate 2 Fraction of Inspired Oxygen 11/05/24 00:00 11/05/24 00:00 11/05/24 00:20 Temperature 36.9 C Pulse Rate 82 80 82 Respiratory Rate 22 H 22 H Blood Pressure 125/42 L Pulse Oximetry 95 95 Oxygen Delivery Nasal Cannula Oxygen Flow Rate 2 Fraction of Inspired Oxygen 11/05/24 01:33 11/05/24 01:42 11/05/24 01:45 Temperature Pulse Rate 70 74 71 Respiratory Rate 20 20 20 Blood Pressure Pulse Oximetry 96 Oxygen Delivery Nasal Cannula Oxygen Flow Rate 2 Fraction of Inspired Oxygen 11/05/24 02:00 11/05/24 04:00 11/05/24 04:00 Temperature Pulse Rate 78 74 72 Respiratory Rate 23 H Blood Pressure Pulse Oximetry 98 Oxygen Delivery Nasal Cannula Oxygen Flow Rate 1 Fraction of Inspired Oxygen 11/05/24 04:14 11/05/24 04:30 11/05/24 06:00 Temperature 36.6 C Pulse Rate 74 77 64 Respiratory Rate 23 H 22 H Blood Pressure 138/57 L Pulse Oximetry 98 98 Oxygen Delivery Room Air Oxygen Flow Rate Fraction of Inspired Oxygen 11/05/24 06:30 11/05/24 07:00 11/05/24 08:00 Temperature Pulse Rate 65 69 69 Respiratory Rate 24 H 20 20 Blood Pressure Pulse Oximetry 88 L 97 100 Oxygen Delivery Room Air Nasal Cannula Room Air Oxygen Flow Rate 1 Fraction of Inspired Oxygen 28 11/05/24 08:03 11/05/24 09:13 11/05/24 09:13 Temperature 36.6 C Pulse Rate 64 100 Respiratory Rate 22 H 20 Blood Pressure 137/52 L Pulse Oximetry 100 100 Oxygen Delivery Nasal Cannula Oxygen Flow Rate 2 Fraction of Inspired Oxygen 11/05/24 09:22 Temperature Pulse Rate 69 Respiratory Rate 20 Blood Pressure Pulse Oximetry Oxygen Delivery Oxygen Flow Rate Fraction of Inspired Oxygen Intake/Output Intake/Output: Intake & Output 12/12/24 12/13/24 12/14/24 12/15/24 23:59 23:59 23:59 23:59 Intake Total 864 186 412 300 Output Total 3100 0870 1170 730 [id number] [phone] Meds/Results Medications: Active Medications Generic Name Dose Route Start Last Admin Trade Name Freq PRN Reason Stop Dose Admin Albuterol/Ipratropium 3 ml 11/02/24 14:00 11/05/24 09:10 Ipratropium 0.5 Mg/Albuterol Sulfate 2.5 Mg Ampul.Neb 3 Ml INHALATION 3 ml Q6HRT YFN Administration Amlodipine Besylate 5 mg 11/05/24 09:00 11/05/24 09:05 Amlodipine Besylate 5 Mg Tablet PO 5 mg DAILY YFN Administration Dextrose 12.5 gm 10/27/24 16:50 11/02/24 17:45 Dextrose 50% 25 Gm/50 Ml Syringe IV PUSH 12.5 gm PRN PRN Administration Hypoglycemia Protocol Enoxaparin Sodium 40 mg 10/28/24 09:00 11/05/24 09:05 Enoxaparin 40 Mg/0.4 Ml Syringe SUB-Q 40 mg DAILY YFN Administration Furosemide 40 mg 11/05/24 09:00 11/05/24 09:05 Furosemide 40 Mg Tablet PO 40 mg DAILY YFN Administration Glucagon 1 mg 10/27/24 16:50 Glucagon For Inj 1 Mg Vial IM PRN PRN Hypoglycemia Protocol Glucose 15 gm 10/27/24 16:50 Glucose Oral Gel 15 Gm Of Glucse In 37.5 Gm Tube PO PRN PRN Hypoglycemia Protocol Hydromorphone HCl 0.5 mg 10/27/24 03:39 10/27/24 08:14 Hydromorphone Hcl Inj (*Crx) 1 Mg/Ml Syr IV PUSH 0.5 mg Q4H PRN Administration Pain Rated 7-10 Dextrose 1,000 mls @ 100 mls/hr 10/27/24 16:50 Dextrose 5% 1,000 Ml IVPB PRN PRN Hypoglycemia Protocol Insulin Aspart 3 - 6 units 10/27/24 18:00 11/05/24 06:54 Insulin Aspart (*Bkc) 100 Units/Ml SUB-Q Not Given Q6HR YFN Protocol Levothyroxine Sodium 112 mcg/ 137 mcg 11/05/24 06:30 11/05/24 06:56 Levothyroxine Sodium 25 mcg PO 137 mcg DAILY@0630 YFN Administration Miscellaneous Information 1 each 11/05/24 00:01 Dilauded Needs To Be Renewed Or It Will Automatically Discontinue. XX 12/05/24 00:00 CLARIFY YFN Montelukast Sodium 10 mg 11/04/24 21:00 11/04/24 22:39 Montelukast Sodium 10 Mg Tablet PO 10 mg HS YFN Administration Multi-Ingred Cream/Lotion/Oil/Oint 1 applic 10/29/24 12:30 11/05/24 09:06 Eucerin Cream 454 Gm Jar TOPICAL 1 applic DAILY YFN Administration Ondansetron HCl 4 mg 10/27/24 03:39 Ondansetron Inj 4 Mg/2 Ml Vial IV PUSH Q4H PRN Nausea Pantoprazole Sodium 40 mg 10/28/24 09:00 11/05/24 09:05 Pantoprazole Sodium Iv 40 Mg Vial IV PUSH 40 mg QAM YFN Administration Sodium Bicarbonate 650 mg 10/30/24 09:00 11/05/24 09:05 Sodium Bicarbonate Tab 650 Mg Tablet FEED TUBE 650 mg BID YFN Administration Sodium Chloride 10 ml 10/28/24 14:00 11/05/24 06:55 Central Line Flush IV PUSH Not Given Q8HR YFN Sodium Chloride 20 ml 10/28/24 07:52 11/04/24 09:43 Central Line Flush IV PUSH 20 ml PRN PRN Administration after blood draws Radiology Results: ITS Impressions Abdomen/Pelvis CT 10/27/24 05:48 Impression: Multiple mildly distended small bowel is within central mesenteric haziness/inflammatory change. Correlate for early/partial small bowel obstruction versus possibly enteritis and reactive ileus. Cholelithiasis. Small Bowel X-Ray 10/27/24 13:04 IMPRESSION: 1. Closed-loop small bowel obstruction. ADDENDUM: 10/27/24 [id number] I called this result to Dr. Morales. Abdomen X-Ray 10/27/24 17:09 IMPRESSION: NO ACUTE ABDOMINAL FINDINGS. Possible stones in the right kidney. Chest X-Ray 11/02/24 11:28 Impression: 1: Persistent mild interstitial edema. Labs Labs: Laboratory Results - last 24 hr 11/04/24 11/04/24 11/05/24 12:06 18:33 00:22 WBC RBC Hgb Hct MCV MCH MCHC RDW Plt Count MPV Immature Gran % (Auto) Neut % (Auto) Lymph % (Auto) [place] % (Auto) Eos % (Auto) Baso % (Auto) Lymph # (Auto) [place] # (Auto) Eos # (Auto) Baso # (Auto) Abs Immat Gran (auto) Absolute Neuts (auto) Absolute Nucleated RBC Total Counted Neutrophils % (Manual) Lymphocytes % (Manual) Monocytes % (Manual) Eosinophils % (Manual) Nucleated RBC % Abs Lymphs (Manual) Abs Monocytes (Manual) Absolute Eos (Manual) Atypical Lymphocytes Smudge Cells Platelet Estimate Hypochromasia Anisocytosis Schistocytes Sodium Potassium Chloride Carbon Dioxide Anion Gap BUN Creatinine Estim Creat Clear Calc Estimated GFR Glucose POC Capillary Glucose 106 H 75 76 Calcium Magnesium Total Bilirubin AST ALT Alkaline Phosphatase Total Protein Albumin 11/05/24 11/05/24 11/05/24 04:24 04:26 05:41 WBC 11.1 H RBC 3.95 L Hgb 10.9 L Hct 36.5 L MCV 92.4 MCH 27.6 MCHC 29.9 L RDW 16.5 H Plt Count 297 MPV 9.5 Immature Gran % (Auto) Not Reportable Neut % (Auto) Not Reportable Lymph % (Auto) Not Reportable [place] % (Auto) Not Reportable Eos % (Auto) Not Reportable Baso % (Auto) Not Reportable Lymph # (Auto) Not Reportable [place] # (Auto) Not Reportable Eos # (Auto) Not Reportable Baso # (Auto) Not Reportable Abs Immat Gran (auto) Not Reportable Absolute Neuts (auto) Not Reportable Absolute Nucleated RBC Not Reportable Total Counted 100 Neutrophils % (Manual) 71 Lymphocytes % (Manual) 18.0 Monocytes % (Manual) 4 Eosinophils % (Manual) 7 H Nucleated RBC % Not Reportable Abs Lymphs (Manual) 1.99 Abs Monocytes (Manual) 0.44 Absolute Eos (Manual) 0.77 H Atypical Lymphocytes Present Smudge Cells Present Platelet Estimate Adequate Hypochromasia 1+ Anisocytosis 1+ Schistocytes None seen Sodium 140 Potassium 3.8 Chloride 106 Carbon Dioxide 33 H Anion Gap 1 L BUN 21 H Creatinine 1.10 H Estim Creat Clear Calc 65 Estimated GFR 49 L Glucose 79 POC Capillary Glucose 80 Calcium 8.6 Magnesium 2.0 Total Bilirubin 1.0 AST 56 H ALT 46 H Alkaline Phosphatase 130 H Total Protein 6.0 L Albumin 3.3 L
[2024-11-05 12:20] LABS: Glucose Point of Care 86 mg/dl (65-105)
[2024-11-05 17:10] LABS: Glucose Point of Care 114 mg/dl (65-105)
[2024-11-05] MEDS: MONTELUKAST SODIUM 10 MG TABLET PO (21:31)
[2024-11-05 22:14] LABS: Glucose Point of Care 87 mg/dl (65-105)
[2024-11-06] VITALS (10 sets, daily range): BP systolic 131–147; BP diastolic 52–60; PULSE 68–82; RESP 16–20; TEMP 36.1–36.6; O2SAT 91–99
--- NOTE | 2024-11-06 05:46 | PCRCNOTE ---
Window of time for administration has passed. See next scheduled administration.
[2024-11-06 05:58] LABS: Hematocrit 37.2 % (37.0-47.0); Hemoglobin 11.2 g/dL (12.0-15.0); Mean Corpuscular HGB Conc 30.1 g/dl (32-36); Mean Corpuscular Hemoglobin 27.3 pg (26-34); Mean Corpuscular Volume 90.7 fl (80-100); Mean Platelet Volume 9.5 fl (7.4-10.4); Platelet Count Result 338 k/mm3 (150-375); Red Cell Distribution Width 16.2 % (11.5-14.5); White Blood Count 12.2 K/mm3 (4.5-10.0)
[2024-11-06 06:10] LABS: Alanine Aminotransferase 53 U/L (6-35); Albumin Level 3.4 g/dL (3.5-5.1); Alkaline Phosphatase 128 U/L (38-126); Anion Gap 3 mmol/L (4-12); Aspartate Amino Transferase 61 U/L (14-36); Bilirubin,Total 0.8 mg/dL (0.2-1.3); Blood Urea Nitrogen 18 mg/dL (7-17); Calcium 8.5 mg/dL (8.4-10.2); Carbon Dioxide 33 mmol/L (22-30); Chloride 103 mmol/L (98-107); Estimated CRCL calculation 72 ml/min; Estimated Glomerular Filt Rate 55; Glucose 85 mg/dL (65-110); Magnesium 1.8 mg/dL (1.6-2.3); Potassium 3.5 mmol/L (3.4-5.0); Sodium 139 mmol/L (137-145)
[2024-11-06] MEDS: LEVOTHYROXINE SODIUM 112 MCG, LEVOTHYROXINE SODIUM 25 MCG 137 MCG PO (06:13)
[2024-11-06] MEDS: IPRATROPIUM 0.5 MG/ALBUTEROL SULFATE 2.5 MG AMPUL.NEB 3 ML INHALATION ×3 (07:32→21:02)
[2024-11-06 08:29] LABS: Band Neutrophils Percent 6 % (0-6); Eosinophils Absolute Manual 0.61 K/mm3 (0.02-0.50); Eosinophils Percent Manual 5 % (0-4); Hypochromasia 1+; Lymphocytes Absolute Manual 1.46 K/mm3 (1.1-4.5); Lymphocytes Percent Manual 12 % (18-44); Monocytes Absolute Manual 0.85 K/mm3 (0.1-0.90); Monocytes Percent Manual 7 % (3-9); Neutrophils Absolute Manual 9.27 K/mm3 (1.7-7.2); Neutrophils Percent Manual 70 % (46-73); Platelet Estimate Adequate (Adequate); Total Cells Counted 100
[2024-11-06 08:30] LABS: Schistocytes None Seen
[2024-11-06] MEDS: ENOXAPARIN 40 MG/0.4 ML SYRINGE SUB-Q (09:12)
[2024-11-06] MEDS: amLODIPine BESYLATE 5 MG TABLET PO (09:12)
[2024-11-06] MEDS: PANTOPRAZOLE SODIUM IV 40 MG VIAL IV PUSH (09:12)
[2024-11-06] MEDS: SODIUM BICARBONATE TAB 650 MG TABLET FEED TUBE ×2 (09:12→16:05)
[2024-11-06] MEDS: FUROSEMIDE 40 MG TABLET PO (09:12)
--- NOTE | 2024-11-06 12:50 | PCNFU ---
Nutrition Follow-Up Complete: Inadequate energy intake related to mechanical ventilation as evidenced by need for full tube feeding. - Resolved Meet estimated protein energy needs - Goal being met. Nutrition needs being met PO. Intakes 100% Goal: Pt current nutrition is Heart healthy diet, soft & bite sized level 6, Moderately thick L3 liquids. Nutrition recommendation: No new nutrition recommendations. Continue current nutrition care plan and orders Agree with orders Last recorded weight is 163.1 kg. Bowel Motility: Liquid stool output per FMS Labs Reviewed: Hgb 11.2, Alb 3.4, GFR 55, BUN 18 Meds Noted: Novolog, Lasix, protonix Skin: No pressure injuries Additional Notes: Intakes are improved to 100%. Continue current nutrition care plan. Monitoring medications, labs, weights, intakes, plan of care Follow up every 5 days
--- NOTE | 2024-11-06 13:30 | P.PNGS_ITS ---
Progress Note: A&P Assessment and Plan (1) Bowel obstruction: Qualifiers: Intestinal obstruction type: unspecified ileus Qualified Code(s): K56.7 - Ileus, unspecified Code(s): K56.609 - Unspecified intestinal obstruction, unspecified as to partial versus complete obstruction Status: Acute Assessment and Plan: doing well, cont routine postop care, PT/OT, OOB/IS Subjective Subjective Date/Time Seen: 11/06/24 13:30 Interval history: no acute issues, feels pretty good, aimee diet Review of Systems Review of Systems: All systems reviewed & are unremarkable except as noted in HPI and below Exam Const: General: cooperative, comfortable, no acute distress, ill appearing and obese Resp: Auscultation: diminished lung sounds Cardio: Rate: regular rate Rhythm: regular rhythm GI: Inspection: normal to inspection, incision, Pannus present and obesity GI Palp: No abdominal tenderness, Yes Soft to palpation and No Tenderness to palpation present (GI) Other: incision C/D/I Objective Data Vital Signs Vital Signs: Vital Signs - 24 hr 11/05/24 13:39 11/05/24 17:10 11/05/24 18:09 Temperature 36.2 C L Pulse Rate 74 72 Respiratory Rate 18 16 Blood Pressure 132/49 L Pulse Oximetry 93 90 Oxygen Delivery Room Air Fraction of Inspired Oxygen 21 11/05/24 18:09 11/05/24 18:16 11/05/24 20:00 Temperature Pulse Rate 72 69 Respiratory Rate 20 20 Blood Pressure Pulse Oximetry Oxygen Delivery Room Air Fraction of Inspired Oxygen 11/05/24 22:03 11/06/24 05:59 11/06/24 07:30 Temperature 36.2 C L 36.1 C L Pulse Rate 67 70 68 Respiratory Rate 18 18 18 Blood Pressure 109/66 147/57 H Pulse Oximetry 91 92 91 Oxygen Delivery Room Air Fraction of Inspired Oxygen 11/06/24 07:30 11/06/24 07:40 11/06/24 08:00 Temperature Pulse Rate 68 69 Respiratory Rate 18 18 Blood Pressure Pulse Oximetry 92 Oxygen Delivery Room Air Fraction of Inspired Oxygen Intake/Output Intake/Output: Intake & Output 11/03/24 11/04/24 11/05/24 11/06/24 23:59 23:59 23:59 23:59 Intake Total 186 412 880 590 Output Total 1630 1170 2030 1250 [facility] -[phone] -660 Meds/Results Medications: Active Medications Generic Name Dose Route Start Last Admin Trade Name Freq PRN Reason Stop Dose Admin Albuterol/Ipratropium 3 ml 11/02/24 14:00 11/06/24 07:32 Ipratropium 0.5 Mg/Albuterol Sulfate 2.5 Mg Ampul.Neb 3 Ml INHALATION 3 ml Q6HRT YFN Administration Amlodipine Besylate 5 mg 11/05/24 09:00 11/06/24 09:12 Amlodipine Besylate 5 Mg Tablet PO 5 mg DAILY YFN Administration Dextrose 12.5 gm 10/27/24 16:50 11/02/24 17:45 Dextrose 50% 25 Gm/50 Ml Syringe IV PUSH 12.5 gm PRN PRN Administration Hypoglycemia Protocol Enoxaparin Sodium 40 mg 10/28/24 09:00 11/06/24 09:12 Enoxaparin 40 Mg/0.4 Ml Syringe SUB-Q 40 mg DAILY YFN Administration Furosemide 40 mg 11/05/24 09:00 11/06/24 09:12 Furosemide 40 Mg Tablet PO 40 mg DAILY YFN Administration Glucagon 1 mg 10/27/24 16:50 Glucagon For Inj 1 Mg Vial IM PRN PRN Hypoglycemia Protocol Glucose 15 gm 10/27/24 16:50 Glucose Oral Gel 15 Gm Of Glucse In 37.5 Gm Tube PO PRN PRN Hypoglycemia Protocol Dextrose 1,000 mls @ 100 mls/hr 10/27/24 16:50 Dextrose 5% 1,000 Ml IVPB PRN PRN Hypoglycemia Protocol Levothyroxine Sodium 112 mcg/ 137 mcg 11/05/24 06:30 11/06/24 06:13 Levothyroxine Sodium 25 mcg PO 137 mcg DAILY@0630 YFN Administration Montelukast Sodium 10 mg 11/04/24 21:00 11/05/24 21:31 Montelukast Sodium 10 Mg Tablet PO 10 mg HS YNF Administration Multi-Ingred Cream/Lotion/Oil/Oint 1 applic 10/29/24 12:30 11/05/24 09:06 Eucerin Cream 454 Gm Jar TOPICAL 1 applic DAILY YFN Administration Ondansetron HCl 4 mg 10/27/24 03:39 Ondansetron Inj 4 Mg/2 Ml Vial IV PUSH Q4H PRN Nausea Pantoprazole Sodium 40 mg 10/28/24 09:00 11/06/24 09:12 Pantoprazole Sodium Iv 40 Mg Vial IV PUSH 40 mg QAM YFN Administration Sodium Bicarbonate 650 mg 10/30/24 09:00 11/06/24 09:12 Sodium Bicarbonate Tab 650 Mg Tablet FEED TUBE 650 mg BID YFN Administration Sodium Chloride 10 ml 10/28/24 14:00 11/06/24 06:14 Central Line Flush IV PUSH Not Given Q8HR YFN Sodium Chloride 20 ml 10/28/24 07:52 11/04/24 09:43 Central Line Flush IV PUSH 20 ml PRN PRN Administration after blood draws Radiology Results: ITS Impressions Abdomen/Pelvis CT 10/27/24 05:48 Impression: Multiple mildly distended small bowel is within central mesenteric haziness/inflammatory change. Correlate for early/partial small bowel obstruction versus possibly enteritis and reactive ileus. Cholelithiasis. Small Bowel X-Ray 10/27/24 13:04 IMPRESSION: 1. Closed-loop small bowel obstruction. ADDENDUM: 10/27/24 [id number] I called this result to Dr. Morales. Abdomen X-Ray 10/27/24 17:09 IMPRESSION: NO ACUTE ABDOMINAL FINDINGS. Possible stones in the right kidney. Chest X-Ray 11/02/24 11:28 Impression: 1: Persistent mild interstitial edema. Labs Labs: Laboratory Results - last 24 hr 11/05/24 11/05/24 11/06/24 17:05 22:07 05:24 WBC 12.2 H RBC 4.10 L Hgb 11.2 L Hct 37.2 MCV 90.7 MCH 27.3 MCHC 30.1 L RDW 16.2 H Plt Count 338 MPV 9.5 Immature Gran % (Auto) Not Reportable Neut % (Auto) Not Reportable Lymph % (Auto) Not Reportable [place] % (Auto) Not Reportable Eos % (Auto) Not Reportable Baso % (Auto) Not Reportable Lymph # (Auto) Not Reportable [place] # (Auto) Not Reportable Eos # (Auto) Not Reportable Baso # (Auto) Not Reportable Abs Immat Gran (auto) Not Reportable Absolute Neuts (auto) Not Reportable Absolute Nucleated RBC Not Reportable Total Counted 100 Neutrophils % (Manual) 70 Band Neutrophils % 6 Lymphocytes % (Manual) 12 L Monocytes % (Manual) 7 Eosinophils % (Manual) 5 H Nucleated RBC % Not Reportable Abs Neuts (Manual) 9.27 H Abs Lymphs (Manual) 1.46 Abs Monocytes (Manual) 0.85 Absolute Eos (Manual) 0.61 H Platelet Estimate Adequate Hypochromasia 1+ Schistocytes None seen Sodium 139 Potassium 3.5 Chloride 103 Carbon Dioxide 33 H Anion Gap 3 L BUN 18 H Creatinine 1.00 Estim Creat Clear Calc 72 Estimated GFR 55 L Glucose 85 POC Capillary Glucose 114 H 87 Calcium 8.5 Magnesium 1.8 Total Bilirubin 0.8 AST 61 H ALT 53 H Alkaline Phosphatase 128 H Total Protein 6.0 L Albumin 3.4 L
--- NOTE | 2024-11-06 15:41 | P.PNIM_ITS ---
Progress Note: A&P Assessment and Plan (1) Acute respiratory failure: Code(s): J96.00 - Acute respiratory failure, unspecified whether with hypoxia or hypercapnia Status: Acute Assessment and Plan: Acute Respiratory failure secondary to general anaesthesia encephalopathy and small-bowel obstruction patient extubated successfully and now on 3 liters oxygen 11/02: Successfully extubated CXR showed pulm edema on Lasix (2) Small bowel obstruction: Code(s): K56.609 - Unspecified intestinal obstruction, unspecified as to partial versus complete obstruction Status: Acute Assessment and Plan: Status post Exploratory laparotomy, lysis of adhesions, detorsion of closed loop small bowel obstruction management of surgical incision wound as per General surgery -now on regular diet (3) VEE (acute kidney injury): Code(s): N17.9 - Acute kidney failure, unspecified Status: Acute Assessment and Plan: Patient has developed postop VEE which could be secondary to fluid shifting, as sepsis, hypovolemia s/p IVF -creatinine improving, Cr 1.0 today monitor (4) Hypothyroidism: Code(s): E03.9 - Hypothyroidism, unspecified Status: Acute Assessment and Plan: Continue IV levothyroxine (5) Enteritis: Code(s): K52.9 - Noninfective gastroenteritis and colitis, unspecified Status: Acute Assessment and Plan: Completed a course of Zosyn (6) Acute UTI: Code(s): N39.0 - Urinary tract infection, site not specified Status: Acute Assessment and Plan: UA suggestive of UTI. Blood cultures negative Urin n cultures growing pansensitive E coli Completed a course of Zosyn Plan Diarrhea r/o infection persistent despite switching to regular diet Stool culture and C diff test pendi ng gentle rehydration and monitor monitor DVT prophylaxis -Lovenox Stress ulcer prophylaxis -PPI Code Status - Full Code Subjective Date/time seen: 11/06/24 15:41 Interval history: Patient still having diarrhea despite switching to regular diet, still on fecal management system Will obtain stool studies along with C diff Review of Systems Review of Systems: All systems reviewed & are unremarkable except as noted in HPI and below ROS unobtainable: Yes unobtainable due to endotracheal tube, unobtainable due to medical condition and unobtainable due to mental status Exam Narrative: General: Morbidly obese patient, is awake, alert, oriented, in no acute distress HEENT: Pupils equal and reactive, sclera is clear Lungs/Chest: Clear to auscultation bilaterally, decreased at bases, adequate air entry. Cardiac: Sinus tachycardia Abdomen: Hypoactive bowel sounds Morbidly Obese. Soft. NT. ND. Incision in the midline covered with dressing Extremities: Bilateral edema and chronic venous stasis changes with dry flaky skin : Ann in place Neurologic: patient is awake, alert, answers to questions appropriately and follows simple commands in all extremities Objective Data Vital Signs Vital Signs: Vital Signs - 24 hr 11/05/24 17:10 11/05/24 18:09 11/05/24 18:09 Temperature 97.1 F L Pulse Rate 72 72 Respiratory Rate 16 20 Blood Pressure 132/49 L Pulse Oximetry 93 90 Oxygen Delivery Room Air Fraction of Inspired Oxygen 21 11/05/24 18:16 11/05/24 20:00 11/05/24 22:03 Temperature 97.1 F L Pulse Rate 69 67 Respiratory Rate 20 18 Blood Pressure 109/66 Pulse Oximetry 91 Oxygen Delivery Room Air Fraction of Inspired Oxygen 11/06/24 05:59 11/06/24 07:30 11/06/24 07:30 Temperature 97 F L Pulse Rate 70 68 68 Respiratory Rate 18 18 18 Blood Pressure 147/57 H Pulse Oximetry 92 91 Oxygen Delivery Room Air Fraction of Inspired Oxygen 11/06/24 07:40 11/06/24 08:00 11/06/24 13:15 Temperature Pulse Rate 69 74 Respiratory Rate 18 18 Blood Pressure Pulse Oximetry 92 Oxygen Delivery Room Air Fraction of Inspired Oxygen 11/06/24 13:25 Temperature Pulse Rate 73 Respiratory Rate 20 Blood Pressure Pulse Oximetry Oxygen Delivery Fraction of Inspired Oxygen Intake/Output Intake/Output: Intake & Output 11/03/24 11/04/24 11/05/24 11/06/24 23:59 23:59 23:59 23:59 Intake Total 186 412 880 590 Output Total 1630 1170 2030 1250 [facility] -[phone] Meds/Results Medications: Active Medications Generic Name Dose Route Start Last Admin Trade Name Freq PRN Reason Stop Dose Admin Albuterol/Ipratropium 3 ml 11/02/24 14:00 11/06/24 13:15 Ipratropium 0.5 Mg/Albuterol Sulfate 2.5 Mg Ampul.Neb 3 Ml INHALATION 3 ml Q6HRT YFN Administration Amlodipine Besylate 5 mg 11/05/24 09:00 11/06/24 09:12 Amlodipine Besylate 5 Mg Tablet PO 5 mg DAILY YFN Administration Dextrose 12.5 gm 10/27/24 16:50 11/02/24 17:45 Dextrose 50% 25 Gm/50 Ml Syringe IV PUSH 12.5 gm PRN PRN Administration Hypoglycemia Protocol Enoxaparin Sodium 40 mg 10/28/24 09:00 11/06/24 09:12 Enoxaparin 40 Mg/0.4 Ml Syringe SUB-Q 40 mg DAILY YFN Administration Furosemide 40 mg 11/05/24 09:00 11/06/24 09:12 Furosemide 40 Mg Tablet PO 40 mg DAILY YFN Administration Glucagon 1 mg 10/27/24 16:50 Glucagon For Inj 1 Mg Vial IM PRN PRN Hypoglycemia Protocol Glucose 15 gm 10/27/24 16:50 Glucose Oral Gel 15 Gm Of Glucse In 37.5 Gm Tube PO PRN PRN Hypoglycemia Protocol Dextrose 1,000 mls @ 100 mls/hr 10/27/24 16:50 Dextrose 5% 1,000 Ml IVPB PRN PRN Hypoglycemia Protocol Levothyroxine Sodium 112 mcg/ 137 mcg 11/05/24 06:30 11/06/24 06:13 Levothyroxine Sodium 25 mcg PO 137 mcg DAILY@0630 YFN Administration Montelukast Sodium 10 mg 11/04/24 21:00 11/05/24 21:31 Montelukast Sodium 10 Mg Tablet PO 10 mg HS YFN Administration Multi-Ingred Cream/Lotion/Oil/Oint 1 applic 10/29/24 12:30 11/05/24 09:06 Eucerin Cream 454 Gm Jar TOPICAL 1 applic DAILY YFN Administration Ondansetron HCl 4 mg 10/27/24 03:39 Ondansetron Inj 4 Mg/2 Ml Vial IV PUSH Q4H PRN Nausea Pantoprazole Sodium 40 mg 10/28/24 09:00 11/06/24 09:12 Pantoprazole Sodium Iv 40 Mg Vial IV PUSH 40 mg QAM YFN Administration Sodium Bicarbonate 650 mg 10/30/24 09:00 11/06/24 09:12 Sodium Bicarbonate Tab 650 Mg Tablet FEED TUBE 650 mg BID YFN Administration Sodium Chloride 10 ml 10/28/24 14:00 11/06/24 06:14 Central Line Flush IV PUSH Not Given Q8HR YFN Sodium Chloride 20 ml 10/28/24 07:52 11/04/24 09:43 Central Line Flush IV PUSH 20 ml PRN PRN Administration after blood draws Radiology Results: ITS Impressions Abdomen/Pelvis CT 10/27/24 05:48 Impression: Multiple mildly distended small bowel is within central mesenteric haziness/inflammatory change. Correlate for early/partial small bowel obstruction versus possibly enteritis and reactive ileus. Cholelithiasis. Small Bowel X-Ray 10/27/24 13:04 IMPRESSION: 1. Closed-loop small bowel obstruction. ADDENDUM: 10/27/24 [id number] I called this result to Dr. Morales. Abdomen X-Ray 10/27/24 17:09 IMPRESSION: NO ACUTE ABDOMINAL FINDINGS. Possible stones in the right kidney. Chest X-Ray 11/02/24 11:28 Impression: 1: Persistent mild interstitial edema. Labs Labs: Laboratory Results - last 24 hr 11/05/24 11/05/24 11/06/24 17:05 22:07 05:24 WBC 12.2 H RBC 4.10 L Hgb 11.2 L Hct 37.2 MCV 90.7 MCH 27.3 MCHC 30.1 L RDW 16.2 H Plt Count 338 MPV 9.5 Immature Gran % (Auto) Not Reportable Neut % (Auto) Not Reportable Lymph % (Auto) Not Reportable [place] % (Auto) Not Reportable Eos % (Auto) Not Reportable Baso % (Auto) Not Reportable Lymph # (Auto) Not Reportable [place] # (Auto) Not Reportable Eos # (Auto) Not Reportable Baso # (Auto) Not Reportable Abs Immat Gran (auto) Not Reportable Absolute Neuts (auto) Not Reportable Absolute Nucleated RBC Not Reportable Total Counted 100 Neutrophils % (Manual) 70 Band Neutrophils % 6 Lymphocytes % (Manual) 12 L Monocytes % (Manual) 7 Eosinophils % (Manual) 5 H Nucleated RBC % Not Reportable Abs Neuts (Manual) 9.27 H Abs Lymphs (Manual) 1.46 Abs Monocytes (Manual) 0.85 Absolute Eos (Manual) 0.61 H Platelet Estimate Adequate Hypochromasia 1+ Schistocytes None seen Sodium 139 Potassium 3.5 Chloride 103 Carbon Dioxide 33 H Anion Gap 3 L BUN 18 H Creatinine 1.00 Estim Creat Clear Calc 72 Estimated GFR 55 L Glucose 85 POC Capillary Glucose 114 H 87 Calcium 8.5 Magnesium 1.8 Total Bilirubin 0.8 AST 61 H ALT 53 H Alkaline Phosphatase 128 H Total Protein 6.0 L Albumin 3.4 L Quality VTE Prophylaxis VTE prophylaxis: mechanical ordered and pharmacologic ordered
[2024-11-06] MEDS: EUCERIN CREAM 454 GM JAR 1 APPLIC TOPICAL (16:05)
[2024-11-06] MEDS: CENTRAL LINE FLUSH 10 ML IV PUSH (16:05)
[2024-11-06] MEDS: SODIUM CHLORIDE 0.9% IV 1,000 ML 50 ML IV CONT (16:05)
[2024-11-06 19:04] LABS: Toxigenic C. Diff NEGATIVE (NEGATIVE)
[2024-11-06] MEDS: MONTELUKAST SODIUM 10 MG TABLET PO (20:56)
[2024-11-07] VITALS (13 sets, daily range): BP systolic 128–137; BP diastolic 46–58; PULSE 72–85; RESP 16–24; TEMP 36.4–36.6; O2SAT 93–96
[2024-11-07] MEDS: IPRATROPIUM 0.5 MG/ALBUTEROL SULFATE 2.5 MG AMPUL.NEB 3 ML INHALATION ×4 (02:08→19:55)
[2024-11-07 05:41] LABS: Basophils Absolute Auto 0.1 K/mm3 (0.0-0.1); Basophils Percent Auto 0.9 % (0.2-1.2); Eosinophils Absolute Auto 0.7 K/mm3 (0-0.3); Eosinophils Percent Auto 5.4 % (0-4.4); Hematocrit 37.8 % (37.0-47.0); Hemoglobin 11.2 g/dL (12.0-15.0); Immature Granulocyte Percent A 3.3 % (0-0.5); Lymphocytes Absolute Auto 1.66 K/mm3 (0.9-3.2); Lymphocytes Percent Auto 13.6 % (18.3-44.2); Mean Corpuscular HGB Conc 29.6 g/dl (32-36); Mean Corpuscular Hemoglobin 27.2 pg (26-34); Mean Corpuscular Volume 91.7 fl (80-100); Mean Platelet Volume 9.3 fl (7.4-10.4); Monocytes Absolute Auto 0.8 K/mm3 (0.1-0.6); Monocytes Percent Auto 6.6 % (2.6-8.5); Neutrophils Absolute Auto 8.6 K/mm3 (1.3-6.7); Neutrophils Percent Auto 70.2 % (45.5-73.1); Nucleated Red Blood Cells Perc 0.2 % (0.0-0.2); Platelet Count Result 334 k/mm3 (150-375); Red Blood Count 4.12 M/mm3 (4.2-5.4); Red Cell Distribution Width 16.4 % (11.5-14.5); White Blood Count 12.2 K/mm3 (4.5-10.0)
[2024-11-07 05:51] LABS: Alanine Aminotransferase 50 U/L (6-35); Albumin Level 3.3 g/dL (3.5-5.1); Alkaline Phosphatase 118 U/L (38-126); Anion Gap 2 mmol/L (4-12); Aspartate Amino Transferase 47 U/L (14-36); Bilirubin,Total 0.7 mg/dL (0.2-1.3); Blood Urea Nitrogen 17 mg/dL (7-17); Calcium 8.1 mg/dL (8.4-10.2); Carbon Dioxide 33 mmol/L (22-30); Chloride 104 mmol/L (98-107); Estimated CRCL calculation 65 ml/min; Estimated Glomerular Filt Rate 49; Glucose 90 mg/dL (65-110); Magnesium 1.8 mg/dL (1.6-2.3); Potassium 3.6 mmol/L (3.4-5.0); Sodium 139 mmol/L (137-145)
[2024-11-07 06:23] LABS: Anisocytosis 1+; Hypochromasia 1+; Platelet Estimate Adequate (Adequate); Schistocytes None Seen
[2024-11-07] MEDS: LEVOTHYROXINE SODIUM 112 MCG, LEVOTHYROXINE SODIUM 25 MCG 137 MCG PO (06:28)
[2024-11-07] MEDS: amLODIPine BESYLATE 5 MG TABLET PO (08:50)
[2024-11-07] MEDS: SODIUM BICARBONATE TAB 650 MG TABLET FEED TUBE (08:50)
[2024-11-07] MEDS: ENOXAPARIN 40 MG/0.4 ML SYRINGE SUB-Q (08:51)
[2024-11-07] MEDS: PANTOPRAZOLE SODIUM IV 40 MG VIAL IV PUSH (08:51)
[2024-11-07] MEDS: EUCERIN CREAM 454 GM JAR 1 APPLIC TOPICAL (08:51)
--- NOTE | 2024-11-07 11:05 | PM.IMPN ---
Progress Note: A&P Assessment and Plan (1) VEE (acute kidney injury): Code(s): N17.9 - Acute kidney failure, unspecified Status: Acute (2) Acute respiratory failure: Code(s): J96.00 - Acute respiratory failure, unspecified whether with hypoxia or hypercapnia Status: Acute (3) Small bowel obstruction: Code(s): K56.609 - Unspecified intestinal obstruction, unspecified as to partial versus complete obstruction Status: Acute (4) Obesity: Code(s): E66.9 - Obesity, unspecified Status: Acute (5) Iron deficiency anemia: Code(s): D50.9 - Iron deficiency anemia, unspecified Status: Acute (6) Hypothyroidism: Code(s): E03.9 - Hypothyroidism, unspecified Status: Acute (7) Hypertension: Code(s): I10 - Essential (primary) hypertension Status: Acute (8) Abdominal distention: Code(s): R14.0 - Abdominal distension (gaseous) Status: Acute (9) Leukocytosis: Qualifiers: Leukocytosis type: unspecified Qualified Code(s): D72.829 - Elevated white blood cell count, unspecified Code(s): D72.829 - Elevated white blood cell count, unspecified Status: Acute (10) Nausea and vomiting: Qualifiers: Vomiting type: bilious vomiting Qualified Code(s): R11.14 - Bilious vomiting Code(s): R11.2 - Nausea with vomiting, unspecified Status: Acute Plan (1) Acute respiratory failure: Code(s): J96.00 - Acute respiratory failure, unspecified whether with hypoxia or hypercapnia Status: Acute Assessment and Plan: Acute Respiratory failure secondary to general anaesthesia encephalopathy and small-bowel obstruction patient extubated successfully and now on 3 liters oxygen 12/12: Successfully extubated CXR showed pulm edema Received A Lasix Patient is on 2 L oxygen (2) Small bowel obstruction: Code(s): K56.609 - Unspecified intestinal obstruction, unspecified as to partial versus complete obstruction Status: Acute Assessment and Plan: Status post Exploratory laparotomy, lysis of adhesions, detorsion of closed loop small bowel obstruction management of surgical incision wound as per General surgery -now on regular diet Patient tolerated diet well. Denies nausea vomiting. Diarrhea has resolved (3) VEE (acute kidney injury): Code(s): N17.9 - Acute kidney failure, unspecified Status: Acute Assessment and Plan: Patient has developed postop VEE which could be secondary to fluid shifting, as sepsis, hypovolemia s/p IVF -creatinine improving, Resolved monitor (4) Hypothyroidism: Code(s): E03.9 - Hypothyroidism, unspecified Status: Acute Assessment and Plan: Continue IV levothyroxine (5) Enteritis: Code(s): K52.9 - Noninfective gastroenteritis and colitis, unspecified Status: Acute Assessment and Plan: Completed a course of Zosyn (6) Acute UTI: Code(s): N39.0 - Urinary tract infection, site not specified Status: Acute Assessment and Plan: UA suggestive of UTI. Blood cultures negative Urin n cultures growing pansensitive E coli Completed a course of Zosyn Plan Diarrhea r/o infection persistent despite switching to regular diet Stool culture pending gentle rehydration and monitor monitor Subjective Date/time seen: 11/07/24 11:05 Interval history: I saw examined patient. Patient feels better today, she has a general weakness. Able to tolerated diet well, denies nausea vomiting abdomen pain. Diarrhea stopped. Patient is afebrile blood pressure stable. Patient denies dysuria, urinary urgency frequency also Exam Narrative: GENERAL: Pleasant, in no acute distress. Morbid obesity, - EYES: EOMI. Anicteric. - HENT: Moist mucous membranes. - LUNGS: Clear to auscultation bilaterally, no wheezing, rhonchi, or rales. - CARDIOVASCULAR: Regular rate and rhythm. No murmur. No JVD. - ABDOMEN: Soft, non-tender and non-distended. No palpable masses. - EXTREMITIES: No edema. Peripheral pulses 2+. Non-tender. - NEUROLOGIC: No focal neurological deficits. CN II-XII grossly intact. - PSYCHIATRIC: Awake, Alert and oriented x 3. Appropriate mood and affect. - SKIN: No rashes or lesions. Warm. - LYMPH: No cervical lymphadenopathy. Objective Data Vital Signs Vital Signs: Vital Signs - 24 hr 11/06/24 13:15 11/06/24 13:25 11/06/24 14:00 Temperature 97.3 F L Pulse Rate 74 73 82 Respiratory Rate 18 20 16 Blood Pressure 131/60 Pulse Oximetry 99 Oxygen Delivery Oxygen Flow Rate 11/06/24 20:00 11/06/24 21:02 11/06/24 21:02 Temperature Pulse Rate 70 Respiratory Rate 20 Blood Pressure Pulse Oximetry 94 Oxygen Delivery Room Air Room Air Oxygen Flow Rate 11/06/24 21:07 11/06/24 21:59 11/07/24 02:08 Temperature 98 F Pulse Rate 71 76 72 Respiratory Rate 20 18 24 H Blood Pressure 136/52 L Pulse Oximetry 93 Oxygen Delivery Oxygen Flow Rate 11/07/24 02:10 11/07/24 02:14 11/07/24 05:56 Temperature 97.6 F Pulse Rate 73 76 Respiratory Rate 24 H 18 Blood Pressure 137/58 L Pulse Oximetry 93 96 Oxygen Delivery Nasal Cannula Oxygen Flow Rate 1 11/07/24 07:45 11/07/24 07:47 11/07/24 08:03 Temperature Pulse Rate 72 74 Respiratory Rate 21 H 21 H Blood Pressure Pulse Oximetry 94 Oxygen Delivery Nasal Cannula Oxygen Flow Rate 2 Intake/Output Intake/Output: Intake & Output 11/04/24 11/05/24 11/06/24 11/07/24 23:59 23:59 23:59 23:59 Intake Total 412 880 690 0 Output Total 1170 2030 2375 700 [facility] [phone] Meds/Results Medications: Active Medications Generic Name Dose Route Start Last Admin Trade Name Freq PRN Reason Stop Dose Admin Albuterol/Ipratropium 3 ml 11/02/24 14:00 11/07/24 07:42 Ipratropium 0.5 Mg/Albuterol Sulfate 2.5 Mg Ampul.Neb 3 Ml INHALATION 3 ml Q6HRT YFN Administration Amlodipine Besylate 5 mg 11/05/24 09:00 11/07/24 08:50 Amlodipine Besylate 5 Mg Tablet PO 5 mg DAILY YFN Administration Dextrose 12.5 gm 10/27/24 16:50 11/02/24 17:45 Dextrose 50% 25 Gm/50 Ml Syringe IV PUSH 12.5 gm PRN PRN Administration Hypoglycemia Protocol Enoxaparin Sodium 40 mg 10/28/24 09:00 11/07/24 08:51 Enoxaparin 40 Mg/0.4 Ml Syringe SUB-Q 40 mg DAILY YFN Administration Glucagon 1 mg 10/27/24 16:50 Glucagon For Inj 1 Mg Vial IM PRN PRN Hypoglycemia Protocol Glucose 15 gm 10/27/24 16:50 Glucose Oral Gel 15 Gm Of Glucse In 37.5 Gm Tube PO PRN PRN Hypoglycemia Protocol Dextrose 1,000 mls @ 100 mls/hr 10/27/24 16:50 Dextrose 5% 1,000 Ml IVPB PRN PRN Hypoglycemia Protocol Sodium Chloride 1,000 mls @ 50 mls/hr 11/06/24 15:45 11/06/24 16:05 Normal Saline Iv IV CONT 50 mls/hr .Q20H YFN Administration Levothyroxine Sodium 112 mcg/ 137 mcg 11/05/24 06:30 11/07/24 06:28 Levothyroxine Sodium 25 mcg PO 137 mcg DAILY@0630 YFN Administration Montelukast Sodium 10 mg 11/04/24 21:00 11/06/24 20:56 Montelukast Sodium 10 Mg Tablet PO 10 mg HS YFN Administration Multi-Ingred Cream/Lotion/Oil/Oint 1 applic 10/29/24 12:30 11/07/24 08:51 Eucerin Cream 454 Gm Jar TOPICAL 1 applic DAILY YFN Administration Ondansetron HCl 4 mg 10/27/24 03:39 Ondansetron Inj 4 Mg/2 Ml Vial IV PUSH Q4H PRN Nausea Pantoprazole Sodium 40 mg 10/28/24 09:00 11/07/24 08:51 Pantoprazole Sodium Iv 40 Mg Vial IV PUSH 40 mg QAM YFN Administration Sodium Bicarbonate 650 mg 10/30/24 09:00 11/07/24 08:50 Sodium Bicarbonate Tab 650 Mg Tablet FEED TUBE 650 mg BID YFN Administration Sodium Chloride 10 ml 10/28/24 14:00 11/07/24 06:29 Central Line Flush IV PUSH Not Given Q8HR YFN Sodium Chloride 20 ml 10/28/24 07:52 11/04/24 09:43 Central Line Flush IV PUSH 20 ml PRN PRN Administration after blood draws Radiology Results: ITS Impressions Abdomen/Pelvis CT 10/27/24 05:48 Impression: Multiple mildly distended small bowel is within central mesenteric haziness/inflammatory change. Correlate for early/partial small bowel obstruction versus possibly enteritis and reactive ileus. Cholelithiasis. Small Bowel X-Ray 10/27/24 13:04 IMPRESSION: 1. Closed-loop small bowel obstruction. ADDENDUM: 10/27/24 [id number] I called this result to Dr. Morales. Abdomen X-Ray 10/27/24 17:09 IMPRESSION: NO ACUTE ABDOMINAL FINDINGS. Possible stones in the right kidney. Chest X-Ray 11/02/24 11:28 Impression: 1: Persistent mild interstitial edema. Labs Labs: Laboratory Results - last 24 hr 11/06/24 11/07/24 17:16 05:20 WBC 12.2 H RBC 4.12 L Hgb 11.2 L Hct 37.8 MCV 91.7 MCH 27.2 MCHC 29.6 L RDW 16.4 H Plt Count 334 MPV 9.3 Immature Gran % (Auto) 3.3 H Neut % (Auto) 70.2 Lymph % (Auto) 13.6 L [place] % (Auto) 6.6 Eos % (Auto) 5.4 H Baso % (Auto) 0.9 Lymph # (Auto) 1.66 [place] # (Auto) 0.8 H Eos # (Auto) 0.7 H Baso # (Auto) 0.1 Abs Immat Gran (auto) 0.40 H Absolute Neuts (auto) 8.6 H Absolute Nucleated RBC 0.020 H Nucleated RBC % 0.2 Platelet Estimate Adequate Hypochromasia 1+ Anisocytosis 1+ Schistocytes None seen Sodium 139 Potassium 3.6 Chloride 104 Carbon Dioxide 33 H Anion Gap 2 L BUN 17 Creatinine 1.10 H Estim Creat Clear Calc 65 Estimated GFR 49 L Glucose 90 Calcium 8.1 L Magnesium 1.8 Total Bilirubin 0.7 AST 47 H ALT 50 H Alkaline Phosphatase 118 Total Protein 6.0 L Albumin 3.3 L C. difficile (PCR) Negative
--- NOTE | 2024-11-07 11:33 | PM.PNGS ---
Progress Note: A&P Assessment and Plan (1) Bowel obstruction: Qualifiers: Intestinal obstruction type: unspecified ileus Qualified Code(s): K56.7 - Ileus, unspecified Code(s): K56.609 - Unspecified intestinal obstruction, unspecified as to partial versus complete obstruction Status: Acute Assessment and Plan: POD11 and surgically stable. Still has rectal tube and she is increasing her activity with PT/OT. Will have nursing try to remove the rectal tube today as she can stand and pivot to the commode. Incision is healing well. Will plan to remove walter before she discharges. CC working on placement to rehab on discharge, which is appropriate. Okay to discharge from a surgical standpoint once placement is confirmed. Plan I have discussed the patient's case and plan of care with Dr. Morales. Subjective Subjective Date/Time Seen: 11/07/24 11:33 Post Op day: 11 Patient reports: no new complaints, flatus, bowel movement and afebrile Interval history: Patient being seen by PT when evaluating her. They are doing bed exercises. She was hoyered into a chair yesterday, but was able to stand at the side of the bed with a wheelchair. She denies any abdominal pain, nausea, vomiting. She is tolerating a heart healthy diet with thickened liquids. She still has a rectal tube in place with liquid stools. Exam Const: General: comfortable and no acute distress Nutritional Appearance: obese Orientation/consciousness: patient oriented x3 GI: Inspection: incision (dry and walter intact, no erythema, no drainage), Pannus present and obesity GI Palp: Yes Soft to palpation, No Tenderness to palpation present (GI), No Guarding due to palpation present (GI) and No Rebound tenderness present Auscultation: normal bowel sounds Other: Rectal tube in place with liquid brown stool Urinary Catheter: Urinary Catheter: patent and draining Objective Data Vital Signs Vital Signs: Vital Signs - 24 hr 11/06/24 13:15 11/06/24 13:25 11/06/24 14:00 Temperature 97.3 F L Pulse Rate 74 73 82 Respiratory Rate 18 20 16 Blood Pressure 131/60 Pulse Oximetry 99 Oxygen Delivery Oxygen Flow Rate 11/06/24 20:00 11/06/24 21:02 11/06/24 21:02 Temperature Pulse Rate 70 Respiratory Rate 20 Blood Pressure Pulse Oximetry 94 Oxygen Delivery Room Air Room Air Oxygen Flow Rate 11/06/24 21:07 11/06/24 21:59 11/07/24 02:08 Temperature 98 F Pulse Rate 71 76 72 Respiratory Rate 20 18 24 H Blood Pressure 136/52 L Pulse Oximetry 93 Oxygen Delivery Oxygen Flow Rate 11/07/24 02:10 11/07/24 02:14 11/07/24 05:56 Temperature 97.6 F Pulse Rate 73 76 Respiratory Rate 24 H 18 Blood Pressure 137/58 L Pulse Oximetry 93 96 Oxygen Delivery Nasal Cannula Oxygen Flow Rate 1 11/07/24 07:45 11/07/24 07:47 11/07/24 08:03 Temperature Pulse Rate 72 74 Respiratory Rate 21 H 21 H Blood Pressure Pulse Oximetry 94 Oxygen Delivery Nasal Cannula Oxygen Flow Rate 2 Intake/Output Intake/Output: Intake & Output 11/04/24 11/05/24 11/06/24 11/07/24 23:59 23:59 23:59 23:59 Intake Total 412 880 690 0 Output Total 1170 2030 9585 700 [place] [phone] Meds/Results Medications: Active Medications Generic Name Dose Route Start Last Admin Trade Name Freq PRN Reason Stop Dose Admin Albuterol/Ipratropium 3 ml 11/02/24 14:00 11/07/24 07:42 Ipratropium 0.5 Mg/Albuterol Sulfate 2.5 Mg Ampul.Neb 3 Ml INHALATION 3 ml Q6HRT YFN Administration Amlodipine Besylate 5 mg 11/05/24 09:00 11/07/24 08:50 Amlodipine Besylate 5 Mg Tablet PO 5 mg DAILY YFN Administration Dextrose 12.5 gm 10/27/24 16:50 11/02/24 17:45 Dextrose 50% 25 Gm/50 Ml Syringe IV PUSH 12.5 gm PRN PRN Administration Hypoglycemia Protocol Enoxaparin Sodium 40 mg 10/28/24 09:00 11/07/24 08:51 Enoxaparin 40 Mg/0.4 Ml Syringe SUB-Q 40 mg DAILY YFN Administration Glucagon 1 mg 10/27/24 16:50 Glucagon For Inj 1 Mg Vial IM PRN PRN Hypoglycemia Protocol Glucose 15 gm 10/27/24 16:50 Glucose Oral Gel 15 Gm Of Glucse In 37.5 Gm Tube PO PRN PRN Hypoglycemia Protocol Dextrose 1,000 mls @ 100 mls/hr 10/27/24 16:50 Dextrose 5% 1,000 Ml IVPB PRN PRN Hypoglycemia Protocol Sodium Chloride 1,000 mls @ 50 mls/hr 11/06/24 15:45 11/06/24 16:05 Normal Saline Iv IV CONT 50 mls/hr .Q20H YFN Administration Levothyroxine Sodium 112 mcg/ 137 mcg 11/05/24 06:30 11/07/24 06:28 Levothyroxine Sodium 25 mcg PO 137 mcg DAILY@0630 YFN Administration Montelukast Sodium 10 mg 11/04/24 21:00 11/06/24 20:56 Montelukast Sodium 10 Mg Tablet PO 10 mg HS YFN Administration Multi-Ingred Cream/Lotion/Oil/Oint 1 applic 10/29/24 12:30 11/07/24 08:51 Eucerin Cream 454 Gm Jar TOPICAL 1 applic DAILY YFN Administration Ondansetron HCl 4 mg 10/27/24 03:39 Ondansetron Inj 4 Mg/2 Ml Vial IV PUSH Q4H PRN Nausea Pantoprazole Sodium 40 mg 10/28/24 09:00 11/07/24 08:51 Pantoprazole Sodium Iv 40 Mg Vial IV PUSH 40 mg QAM YFN Administration Sodium Bicarbonate 650 mg 11/07/24 17:00 Sodium Bicarbonate Tab 650 Mg Tablet PO BID YFN Sodium Chloride 10 ml 10/28/24 14:00 11/07/24 06:29 Central Line Flush IV PUSH Not Given Q8HR YFN Sodium Chloride 20 ml 10/28/24 07:52 11/04/24 09:43 Central Line Flush IV PUSH 20 ml PRN PRN Administration after blood draws Radiology Results: ITS Impressions Abdomen/Pelvis CT 10/27/24 05:48 Impression: Multiple mildly distended small bowel is within central mesenteric haziness/inflammatory change. Correlate for early/partial small bowel obstruction versus possibly enteritis and reactive ileus. Cholelithiasis. Small Bowel X-Ray 10/27/24 13:04 IMPRESSION: 1. Closed-loop small bowel obstruction. ADDENDUM: 10/27/24 [id number] I called this result to Dr. Morales. Abdomen X-Ray 10/27/24 17:09 IMPRESSION: NO ACUTE ABDOMINAL FINDINGS. Possible stones in the right kidney. Chest X-Ray 12/12/24 11:28 Impression: 1: Persistent mild interstitial edema. Labs Labs: Laboratory Results - last 24 hr 11/06/24 11/07/24 17:16 05:20 WBC 12.2 H RBC 4.12 L Hgb 11.2 L Hct 37.8 MCV 91.7 MCH 27.2 MCHC 29.6 L RDW 16.4 H Plt Count 334 MPV 9.3 Immature Gran % (Auto) 3.3 H Neut % (Auto) 70.2 Lymph % (Auto) 13.6 L [place] % (Auto) 6.6 Eos % (Auto) 5.4 H Baso % (Auto) 0.9 Lymph # (Auto) 1.66 [place] # (Auto) 0.8 H Eos # (Auto) 0.7 H Baso # (Auto) 0.1 Abs Immat Gran (auto) 0.40 H Absolute Neuts (auto) 8.6 H Absolute Nucleated RBC 0.020 H Nucleated RBC % 0.2 Platelet Estimate Adequate Hypochromasia 1+ Anisocytosis 1+ Schistocytes None seen Sodium 139 Potassium 3.6 Chloride 104 Carbon Dioxide 33 H Anion Gap 2 L BUN 17 Creatinine 1.10 H Estim Creat Clear Calc 65 Estimated GFR 49 L Glucose 90 Calcium 8.1 L Magnesium 1.8 Total Bilirubin 0.7 AST 47 H ALT 50 H Alkaline Phosphatase 118 Total Protein 6.0 L Albumin 3.3 L C. difficile (PCR) Negative
[2024-11-07] MEDS: SODIUM BICARBONATE TAB 650 MG TABLET PO (16:46)
[2024-11-07] MEDS: MONTELUKAST SODIUM 10 MG TABLET PO (21:22)
[2024-11-08 01:18] VITALS: PULSE 76; RESP 20
[2024-11-08] MEDS: IPRATROPIUM 0.5 MG/ALBUTEROL SULFATE 2.5 MG AMPUL.NEB 3 ML INHALATION ×2 (01:18→07:36)
[2024-11-08 01:26] VITALS: PULSE 74; RESP 20
[2024-11-08] MEDS: LEVOTHYROXINE SODIUM 112 MCG, LEVOTHYROXINE SODIUM 25 MCG 137 MCG PO (05:05)
[2024-11-08 06:28] VITALS: BP 130/46; PULSE 72; RESP 18; TEMP 36.6; O2SAT 99
[2024-11-08 07:36] VITALS: PULSE 77; RESP 20; O2SAT 98
[2024-11-08 07:47] VITALS: PULSE 72; RESP 20
--- NOTE | 2024-11-08 08:31 | P.PNIM_ITS ---
Progress Note: A&P Assessment and Plan (1) VEE (acute kidney injury): Code(s): N17.9 - Acute kidney failure, unspecified Status: Acute (2) Acute respiratory failure: Code(s): J96.00 - Acute respiratory failure, unspecified whether with hypoxia or hypercapnia Status: Acute (3) Small bowel obstruction: Code(s): K56.609 - Unspecified intestinal obstruction, unspecified as to partial versus complete obstruction Status: Acute (4) Obesity: Code(s): E66.9 - Obesity, unspecified Status: Acute (5) Iron deficiency anemia: Code(s): D50.9 - Iron deficiency anemia, unspecified Status: Acute (6) Hypothyroidism: Code(s): E03.9 - Hypothyroidism, unspecified Status: Acute (7) Hypertension: Code(s): I10 - Essential (primary) hypertension Status: Acute (8) Abdominal distention: Code(s): R14.0 - Abdominal distension (gaseous) Status: Acute (9) Leukocytosis: Qualifiers: Leukocytosis type: unspecified Qualified Code(s): D72.829 - Elevated white blood cell count, unspecified Code(s): D72.829 - Elevated white blood cell count, unspecified Status: Acute (10) Nausea and vomiting: Qualifiers: Vomiting type: bilious vomiting Qualified Code(s): R11.14 - Bilious vomiting Code(s): R11.2 - Nausea with vomiting, unspecified Status: Acute Plan Acute respiratory failure: Code(s): J96.00 - Acute respiratory failure, unspecified whether with hypoxia or hypercapnia Status: Acute Assessment and Plan: Acute Respiratory failure secondary to general anaesthesia encephalopathy and small-bowel obstruction patient extubated successfully and now on 3 liters oxygen 12/12: Successfully extubated CXR showed pulm edema Received A Lasix Patient is on 2 L oxygen possible superimposed with hypoventilation syndrome due to morbid obesity Small bowel obstruction: Code(s): K56.609 - Unspecified intestinal obstruction, unspecified as to partial versus complete obstruction Status: Acute Assessment and Plan: Status post Exploratory laparotomy, lysis of adhesions, detorsion of closed loop small bowel obstruction management of surgical incision wound as per General surgery -now on regular diet Patient tolerated diet well. Denies nausea vomiting. Diarrhea has resolved Speech eval patient, and recommends regular diet (3) VEE (acute kidney injury): Code(s): N17.9 - Acute kidney failure, unspecified Status: Acute Assessment and Plan: Patient has developed postop VEE which could be secondary to fluid shifting, as sepsis, hypovolemia s/p IVF creatinine improving, Resolved monitor Hypothyroidism: Code(s): E03.9 - Hypothyroidism, unspecified Status: Acute Assessment and Plan: Continue IV levothyroxine (5) Enteritis: Code(s): K52.9 - Noninfective gastroenteritis and colitis, unspecified Status: Acute Assessment and Plan: Completed a course of Zosyn Acute UTI: Code(s): N39.0 - Urinary tract infection, site not specified Status: Acute Assessment and Plan: UA suggestive of UTI. Blood cultures negative Urin n cultures growing pansensitive E coli Completed a course of Zosyn Diarrhea has resolved gentle rehydration Stool culture unremarkable monitor Subjective Date/time seen: 11/08/24 08:31 Interval history: I saw examined patient. Patient feels better today, patient tolerated regular diet well patient denies nausea vomiting abdomen pain. Patient is afebrile blood pressure stable. Patient denies dysuria, urinary urgency frequency. Folic catheter was removed yesterday, no urinary retention Exam Narrative: GENERAL: Pleasant, in no acute distress. Morbid obesity, - EYES: EOMI. Anicteric. - HENT: Moist mucous membranes. - LUNGS: Clear to auscultation bilateral ly, no wheezing, rhonchi, or rales. - CARDIOVASCULAR: Regular rate and rhyth m. No murmur. No JVD. - ABDOMEN: Soft, non-tender and non-dist ended. No palpable masses. - EXTREMITIES: No edema. Peripheral puls es 2+. Non-tender. - NEUROLOGIC: No focal neurological defi cits. CN II-XII grossly intact. - PSYCHIATRIC: Awake, Alert and oriented x 3. Appropriate mood and affect. - SKIN: No rashes or lesions. Warm. - LYMPH: No cervical lymphadenopathy. Objective Data Vital Signs Vital Signs: Vital Signs - 24 hr 11/07/24 13:50 11/07/24 14:03 11/07/24 14:26 Temperature 97.9 F Pulse Rate 76 75 82 Respiratory Rate 20 20 16 Blood Pressure 128/48 L Pulse Oximetry 96 Oxygen Delivery Oxygen Flow Rate 11/07/24 19:56 11/07/24 20:00 11/07/24 20:05 Temperature Pulse Rate 72 74 Respiratory Rate 20 20 Blood Pressure Pulse Oximetry Oxygen Delivery Room Air Oxygen Flow Rate 11/07/24 22:14 11/08/24 01:18 11/08/24 01:26 Temperature 97.7 F Pulse Rate 85 76 74 Respiratory Rate 16 20 20 Blood Pressure 130/46 L Pulse Oximetry 93 Oxygen Delivery Oxygen Flow Rate 11/08/24 06:28 11/08/24 07:36 11/08/24 07:36 Temperature 97.8 F Pulse Rate 72 77 Respiratory Rate 18 20 Blood Pressure 130/46 L Pulse Oximetry 99 98 Oxygen Delivery Nasal Cannula Oxygen Flow Rate 2 11/08/24 07:47 Temperature Pulse Rate 72 Respiratory Rate 20 Blood Pressure Pulse Oximetry Oxygen Delivery Oxygen Flow Rate Intake/Output Intake/Output: Intake & Output 11/05/24 11/06/24 11/07/24 11/08/24 23:59 23:59 23:59 23:59 Intake Total 880 690 100 0 Output Total 2030 2375 1200 200 Balance -1150 -1685 -1100 -200 Meds/Results Medications: Active Medications Generic Name Dose Route Start Last Admin Trade Name Freq PRN Reason Stop Dose Admin Albuterol/Ipratropium 3 ml 11/02/24 14:00 11/08/24 07:36 Ipratropium 0.5 Mg/Albuterol Sulfate 2.5 Mg Ampul.Neb 3 Ml INHALATION 3 ml Q6HRT YFN Administration Amlodipine Besylate 5 mg 11/05/24 09:00 11/07/24 08:50 Amlodipine Besylate 5 Mg Tablet PO 5 mg DAILY YFN Administration Dextrose 12.5 gm 10/27/24 16:50 11/02/24 17:45 Dextrose 50% 25 Gm/50 Ml Syringe IV PUSH 12.5 gm PRN PRN Administration Hypoglycemia Protocol Enoxaparin Sodium 40 mg 10/28/24 09:00 11/07/24 08:51 Enoxaparin 40 Mg/0.4 Ml Syringe SUB-Q 40 mg DAILY YFN Administration Glucagon 1 mg 10/27/24 16:50 Glucagon For Inj 1 Mg Vial IM PRN PRN Hypoglycemia Protocol Glucose 15 gm 10/27/24 16:50 Glucose Oral Gel 15 Gm Of Glucse In 37.5 Gm Tube PO PRN PRN Hypoglycemia Protocol Dextrose 1,000 mls @ 100 mls/hr 10/27/24 16:50 Dextrose 5% 1,000 Ml IVPB PRN PRN Hypoglycemia Protocol Levothyroxine Sodium 112 mcg/ 137 mcg 11/05/24 06:30 11/08/24 05:05 Levothyroxine Sodium 25 mcg PO 137 mcg DAILY@0630 YFN Administration Montelukast Sodium 10 mg 11/04/24 21:00 11/07/24 21:22 Montelukast Sodium 10 Mg Tablet PO 10 mg HS YFN Administration Multi-Ingred Cream/Lotion/Oil/Oint 1 applic 10/29/24 12:30 11/07/24 08:51 Eucerin Cream 454 Gm Jar TOPICAL 1 applic DAILY YFN Administration Ondansetron HCl 4 mg 10/27/24 03:39 Ondansetron Inj 4 Mg/2 Ml Vial IV PUSH Q4H PRN Nausea Pantoprazole Sodium 40 mg 10/28/24 09:00 11/07/24 08:51 Pantoprazole Sodium Iv 40 Mg Vial IV PUSH 40 mg QAM YFN Administration Sodium Bicarbonate 650 mg 11/07/24 17:00 11/07/24 16:46 Sodium Bicarbonate Tab 650 Mg Tablet PO 650 mg BID YFN Administration Sodium Chloride 20 ml 10/28/24 07:52 11/04/24 09:43 Central Line Flush IV PUSH 20 ml PRN PRN Administration after blood draws Radiology Results: ITS Impressions Abdomen/Pelvis CT 10/27/24 05:48 Impression: Multiple mildly distended small bowel is within central mesenteric haziness/inflammatory change. Correlate for early/partial small bowel obstruction versus possibly enteritis and reactive ileus. Cholelithiasis. Small Bowel X-Ray 10/27/24 13:04 IMPRESSION: 1. Closed-loop small bowel obstruction. ADDENDUM: 10/27/24 [id number] I called this result to Dr. Morales. Abdomen X-Ray 10/27/24 17:09 IMPRESSION: NO ACUTE ABDOMINAL FINDINGS. Possible stones in the right kidney. Chest X-Ray 11/02/24 11:28 Impression: 1: Persistent mild interstitial edema.
[2024-11-08] MEDS: SODIUM BICARBONATE TAB 650 MG TABLET PO (08:40)
[2024-11-08] MEDS: PANTOPRAZOLE SODIUM IV 40 MG VIAL IV PUSH (08:40)
[2024-11-08] MEDS: amLODIPine BESYLATE 5 MG TABLET PO (08:40)
[2024-11-08] MEDS: ENOXAPARIN 40 MG/0.4 ML SYRINGE SUB-Q (08:41)
[2024-11-08] MEDS: EUCERIN CREAM 454 GM JAR 1 APPLIC TOPICAL (08:41)
--- NOTE | 2024-11-08 11:31 | P.PNGS_ITS ---
Progress Note: A&P Assessment and Plan (1) Bowel obstruction: Qualifiers: Intestinal obstruction type: unspecified ileus Qualified Code(s): K56.7 - Ileus, unspecified Code(s): K56.609 - Unspecified intestinal obstruction, unspecified as to partial versus complete obstruction Status: Acute Assessment and Plan: doing well, ok to dc to rehab from surgical standpoint, f/u 2 wks Subjective Subjective Date/Time Seen: 11/08/24 11:31 Interval history: no c/o, aimee diet, +bowel fxn Review of Systems 2 Review of Systems: All systems reviewed & are unremarkable except as noted in HPI and below Exam Const: General: cooperative, comfortable and no acute distress Resp: Auscultation: diminished lung sounds Cardio: Rate: regular rate Rhythm: regular rhythm GI: Inspection: normal to inspection, distended and incision GI Palp: No abdominal tenderness and Yes Soft to palpation Other: walter removed Objective Data Vital Signs Vital Signs: Vital Signs - 24 hr 11/07/24 13:50 11/07/24 14:03 11/07/24 14:26 Temperature 36.6 C Pulse Rate 76 75 82 Respiratory Rate 20 20 16 Blood Pressure 128/48 L Pulse Oximetry 96 Oxygen Delivery Oxygen Flow Rate 11/07/24 19:56 11/07/24 20:00 11/07/24 20:05 Temperature Pulse Rate 72 74 Respiratory Rate 20 20 Blood Pressure Pulse Oximetry Oxygen Delivery Room Air Oxygen Flow Rate 11/07/24 22:14 11/08/24 01:18 11/08/24 01:26 Temperature 36.5 C Pulse Rate 85 76 74 Respiratory Rate 16 20 20 Blood Pressure 130/46 L Pulse Oximetry 93 Oxygen Delivery Oxygen Flow Rate 11/08/24 06:28 11/08/24 07:36 11/08/24 07:36 Temperature 36.6 C Pulse Rate 72 77 Respiratory Rate 18 20 Blood Pressure 130/46 L Pulse Oximetry 99 98 Oxygen Delivery Nasal Cannula Oxygen Flow Rate 2 11/08/24 07:47 Temperature Pulse Rate 72 Respiratory Rate 20 Blood Pressure Pulse Oximetry Oxygen Delivery Oxygen Flow Rate Intake/Output Intake/Output: Intake & Output 11/05/24 11/06/24 11/07/24 11/08/24 23:59 23:59 23:59 23:59 Intake Total 880 690 100 0 Output Total 2030 2375 1200 200 Balance -1150 -1685 -1100 -200 Meds/Results Medications: Active Medications Generic Name Dose Route Start Last Admin Trade Name Freq PRN Reason Stop Dose Admin Albuterol/Ipratropium 3 ml 11/02/24 14:00 11/08/24 07:36 Ipratropium 0.5 Mg/Albuterol Sulfate 2.5 Mg Ampul.Neb 3 Ml INHALATION 3 ml Q6HRT YFN Administration Amlodipine Besylate 5 mg 11/05/24 09:00 11/08/24 08:40 Amlodipine Besylate 5 Mg Tablet PO 5 mg DAILY YFN Administration Dextrose 12.5 gm 10/27/24 16:50 11/02/24 17:45 Dextrose 50% 25 Gm/50 Ml Syringe IV PUSH 12.5 gm PRN PRN Administration Hypoglycemia Protocol Enoxaparin Sodium 40 mg 10/28/24 09:00 11/08/24 08:41 Enoxaparin 40 Mg/0.4 Ml Syringe SUB-Q 40 mg DAILY YFN Administration Glucagon 1 mg 10/27/24 16:50 Glucagon For Inj 1 Mg Vial IM PRN PRN Hypoglycemia Protocol Glucose 15 gm 10/27/24 16:50 Glucose Oral Gel 15 Gm Of Glucse In 37.5 Gm Tube PO PRN PRN Hypoglycemia Protocol Dextrose 1,000 mls @ 100 mls/hr 10/27/24 16:50 Dextrose 5% 1,000 Ml IVPB PRN PRN Hypoglycemia Protocol Levothyroxine Sodium 112 mcg/ 137 mcg 11/05/24 06:30 11/08/24 05:05 Levothyroxine Sodium 25 mcg PO 137 mcg DAILY@0630 YFN Administration Montelukast Sodium 10 mg 11/04/24 21:00 11/07/24 21:22 Montelukast Sodium 10 Mg Tablet PO 10 mg HS YFN Administration Multi-Ingred Cream/Lotion/Oil/Oint 1 applic 10/29/24 12:30 11/08/24 08:41 Eucerin Cream 454 Gm Jar TOPICAL 1 applic DAILY YFN Administration Ondansetron HCl 4 mg 10/27/24 03:39 Ondansetron Inj 4 Mg/2 Ml Vial IV PUSH Q4H PRN Nausea Pantoprazole Sodium 40 mg 10/28/24 09:00 11/08/24 08:40 Pantoprazole Sodium Iv 40 Mg Vial IV PUSH 40 mg QAM YFN Administration Sodium Bicarbonate 650 mg 11/07/24 17:00 11/08/24 08:40 Sodium Bicarbonate Tab 650 Mg Tablet PO 650 mg BID YFN Administration Sodium Chloride 20 ml 10/28/24 07:52 11/04/24 09:43 Central Line Flush IV PUSH 20 ml PRN PRN Administration after blood draws Radiology Results: ITS Impressions Abdomen/Pelvis CT 10/27/24 05:48 Impression: Multiple mildly distended small bowel is within central mesenteric haziness/inflammatory change. Correlate for early/partial small bowel obstruction versus possibly enteritis and reactive ileus. Cholelithiasis. Small Bowel X-Ray 10/27/24 13:04 IMPRESSION: 1. Closed-loop small bowel obstruction. ADDENDUM: 10/27/24 [id number] I called this result to Dr. Morales. Abdomen X-Ray 10/27/24 17:09 IMPRESSION: NO ACUTE ABDOMINAL FINDINGS. Possible stones in the right kidney. Chest X-Ray 11/02/24 11:28 Impression: 1: Persistent mild interstitial edema.
--- NOTE | 2024-11-08 12:10 | PM.DS ---
DS: Admitting Diagnosis Discharge Date 11/08/24 Admitting Diagnosis (1) VEE (acute kidney injury): Code(s): N17.9 - Acute kidney failure, unspecified Status: Acute (2) Acute respiratory failure: Code(s): J96.00 - Acute respiratory failure, unspecified whether with hypoxia or hypercapnia Status: Acute (3) Small bowel obstruction: Code(s): K56.609 - Unspecified intestinal obstruction, unspecified as to partial versus complete obstruction Status: Acute (4) Obesity: Code(s): E66.9 - Obesity, unspecified Status: Acute (5) Iron deficiency anemia: Code(s): D50.9 - Iron deficiency anemia, unspecified Status: Acute (6) Hypothyroidism: Code(s): E03.9 - Hypothyroidism, unspecified Status: Acute (7) Hypertension: Code(s): I10 - Essential (primary) hypertension Status: Acute (8) Abdominal distention: Code(s): R14.0 - Abdominal distension (gaseous) Status: Acute (9) Leukocytosis: Qualifiers: Leukocytosis type: unspecified Qualified Code(s): D72.829 - Elevated white blood cell count, unspecified Code(s): D72.829 - Elevated white blood cell count, unspecified Status: Acute (10) Nausea and vomiting: Qualifiers: Vomiting type: bilious vomiting Qualified Code(s): R11.14 - Bilious vomiting Code(s): R11.2 - Nausea with vomiting, unspecified Status: Acute DS: Discharge Diagnosis Discharge Diagnosis (1) VEE (acute kidney injury): Code(s): N17.9 - Acute kidney failure, unspecified Status: Acute (2) Acute respiratory failure: Code(s): J96.00 - Acute respiratory failure, unspecified whether with hypoxia or hypercapnia Status: Acute (3) Small bowel obstruction: Code(s): K56.609 - Unspecified intestinal obstruction, unspecified as to partial versus complete obstruction Status: Acute (4) Obesity: Code(s): E66.9 - Obesity, unspecified Status: Acute (5) Iron deficiency anemia: Code(s): D50.9 - Iron deficiency anemia, unspecified Status: Acute (6) Hypothyroidism: Code(s): E03.9 - Hypothyroidism, unspecified Status: Acute (7) Hypertension: Code(s): I10 - Essential (primary) hypertension Status: Acute (8) Abdominal distention: Code(s): R14.0 - Abdominal distension (gaseous) Status: Acute (9) Leukocytosis: Qualifiers: Leukocytosis type: unspecified Qualified Code(s): D72.829 - Elevated white blood cell count, unspecified Code(s): D72.829 - Elevated white blood cell count, unspecified Status: Acute (10) Nausea and vomiting: Qualifiers: Vomiting type: bilious vomiting Qualified Code(s): R11.14 - Bilious vomiting Code(s): R11.2 - Nausea with vomiting, unspecified Status: Acute DS: Summary Hospital Course Hospital Course: Per H&P, Patient is a 68 year old female who presented to the ED with complaints of acute ABD pain a few hours after eating dinner she also endorse nausea and vomiting. Patient states she has had a HX of gallstones but this feeling was different. Patient with PMX of HTN, hypothyroidism, obesity, neuropathy, and iron deficiency anemia. Initial findings in the ED showed a WBC of 10.[address] ABD early/partial small bowel obstruction versus possibly enteritis and reactive ileus. UA was suspicious for UTI otherwise labs unremarkable and vitals stable. Patient had NG tube placed for decompression and was admitted to the medical unit. Upon assessment this am patient denied ABD pain but bowel distention present and no BM or Flatulence. Patient lethargic but able to answer questions but following asleep during assessment. F/U CBC with WBC up 21.9 and stat KUB with Closed-loop small bowel obstruction some concern for perforation. Patient was taken for immediate surgery. potassium critical of 6.5 upon arrival The following med issues have been addressed during hospitalization Acute respiratory failure: Code(s): J96.00 - Acute respiratory failure, unspecified whether with hypoxia or hypercapnia Status: Acute Assessment and Plan: Acute Respiratory failure secondary to general anaesthesia encephalopathy and small-bowel obstruction patient extubated successfully and now on 3 liters oxygen /: Successfully extubated CXR showed pulm edema Received A Lasix Patient is on 2 L oxygen possible superimposed with hypoventilation syndrome due to morbid obesity Small bowel obstruction: Code(s): K56.609 - Unspecified intestinal obstruction, unspecified as to partial versus complete obstruction Status: Acute Assessment and Plan: Status post Exploratory laparotomy, lysis of adhesions, detorsion of closed loop small bowel obstruction management of surgical incision wound as per General surgery -now on regular diet Patient tolerated diet well. Denies nausea vomiting. Diarrhea has resolved Speech eval patient, and recommends regular diet (3) VEE (acute kidney injury): Code(s): N17.9 - Acute kidney failure, unspecified Status: Acute Assessment and Plan: Patient has developed postop VEE which could be secondary to fluid shifting, as sepsis, hypovolemia s/p IVF creatinine improving, Resolved monitor Hypothyroidism: Code(s): E03.9 - Hypothyroidism, unspecified Status: Acute Assessment and Plan: Continue IV levothyroxine (5) Enteritis: Code(s): K52.9 - Noninfective gastroenteritis and colitis, unspecified Status: Acute Assessment and Plan: Completed a course of Zosyn Acute UTI: Code(s): N39.0 - Urinary tract infection, site not specified Status: Acute Assessment and Plan: UA suggestive of UTI. Blood cultures negative Urin n cultures growing pansensitive E coli Completed a course of Zosyn Diarrhea has resolved gentle rehydration Stool culture unremarkable Patient will be discharged to residential for rehab Time Spent with Patient Time attestation: Total time spent providing and/or coordinating discharge services: Exam Narrative: GENERAL: Pleasant, in no acute distress. Morbid obesity, - EYES: EOMI. Anicteric. - HENT: Moist mucous membranes. - LUNGS: Clear to auscultation bilaterally, no wheezing, rhonchi, or rales. - CARDIOVASCULAR: Regular rate and rhythm. No murmur. No JVD. - ABDOMEN: Soft, non-tender and non-distended. No palpable masses. - EXTREMITIES: No edema. Peripheral pulses 2+. Non-tender. - NEUROLOGIC: No focal neurological deficits. CN II-XII grossly intact. - PSYCHIATRIC: Awake, Alert and oriented x 3. Appropriate mood and affect. - SKIN: No rashes or lesions. Warm. - LYMPH: No cervical lymphadenopathy. Discharge Plan Discharge Attending physician on discharge: Idris Cardoso Consulting providers: Darvin Nichols; Gaviota Morales; Wilmer Hemphill Discharging Clinician: Idris Cardoso Anticipated Discharge Date/Time: 11/08/24 12:14 Activity: as tolerated Diet: as tolerated and heart healthy Patient Language: Maltese Follow-up/Referrals: Bhavesh Garibay PA-C [Emergency Provider] - Gaviota Morales MD [Physician] - (Patient has follow-up appointment with general surgeon in 2 weeks) UNKNOWN,DOCTOR [Primary Care Provider] - (Patient needs to see primary care doctor in 1 week) Discharge Medications: Continued furosemide 40 mg tablet 40 mg PO DAILY levothyroxine 137 mcg tablet 137 mcg PO DAILY atorvastatin 20 mg tablet 20 mg PO DAILY amlodipine 5 mg tablet 5 mg PO DAILY allopurinol 100 mg tablet 100 mg PO DAILY ferrous sulfate 325 mg (65 mg iron) tablet 325 mg PO DAILY gabapentin 300 mg capsule 300 mg PO TID montelukast 10 mg tablet 10 mg PO HS Date of admission: 10/27/24 07:31 Primary Care Provider: UNKNOWN,DOCTOR Admitting Provider: Amirah Mccarty Attending physician on admission: Lolis Boles Condition: Stable
[2024-11-08 13:41] VITALS: BP 122/46; PULSE 70; RESP 18; TEMP 36.7; O2SAT 94
--- NOTE | 2024-11-09 12:53 | WPDHPUPDATE1 ---
History and Physical Update Update Date/Time: 11/09/24 12:53 History and Physical has been reviewed, including an updated exam of the patient. There are NO changes in the patient's condition. Risks, benefits, and alternatives have been discussed and questions answered. Patient agrees to proceed with procedure. For exploratory laporotomy
== END 2024-11-08 14:33 | DRG 335 ==
LOC: ANHED 10-27 03:42 → ANH2MED 10-27 05:10 → ANHICU 10-27 16:50 → ANHIMU 11-03 18:54 → ANH3MED 11-05 09:44
PROVIDERS: Emergency Medicine; Internal Medicine; Nurse Practitioner Family; Surgery; Admitting Provider Internal Medicine; Emergency Provider Physician Assistant; Visit Provider Hospitalist
PROC: 0DN80ZZ Release Small Intestine, Open Approach (ICD-10-PCS; CPT 49000; principal; 2024-10-27 14:00)
DX: K56.2 Volvulus (principal); G92.8 Other toxic encephalopathy; J96.00 Acute respiratory failure, unspecified whether with hypoxia or hypercapnia; N17.9 Acute kidney failure, unspecified; N39.0 Urinary tract infection, site not specified; R18.8 Other ascites; Z68.44 Body mass index [BMI] 60.0-69.9, adult; K56.52 Intestinal adhesions [bands] with complete obstruction; T88.59XA Other complications of anesthesia, initial encounter; I10 Essential (primary) hypertension; E03.9 Hypothyroidism, unspecified; D50.9 Iron deficiency anemia, unspecified; K52.9 Noninfective gastroenteritis and colitis, unspecified; I87.8 Other specified disorders of veins; E66.01 Morbid (severe) obesity due to excess calories; B96.20 Unspecified Escherichia coli [E. coli] as the cause of diseases classified elsewhere
CPT/HCPCS: 36415; 36600; 71045; 74018; 74177; 74250; 80048; 80053; 81001; 82375; 82550; 82805; 82948; 83050; 83605; 83690; 83735; 84100; 84300; 84478; 85018; 85025; 86850; 86900; 86901; 87040; 87045; 87086; 87186; 87427; 87449; 87493; 87641; 92610; 93005; 93306; 94002; 94003; 94640; 96361; 96365; 96375; 96376; 97110; 97161; 97166; 97530; 97535; 99212; 99285; A9270; G0378; G0463; J0612; J0613; J0650; J0696; J1171; J1650; J1815; J1940; J2405; J2470; J2543; J2704; J3010; J3480; J7030; J7120; P9047; Q9967

== ENCOUNTER 2025-09-21 20:30 | Inpatient (IN) | payer MEDICARE, SELFPAY ==
--- NOTE | ~2025-09-21 | CT_ITS ---
CT LUMBAR SPINE WITHOUT CONTRAST INDICATION: Back pain, fall COMPARISON: None available. TECHNIQUE: Axial 2.5 mm images of the lumbar spine were obtained without contrast. Additional coronal and sagittal reformatted images were rendered. FINDINGS: Vertebral body height and alignment are maintained. There is no acute compression fracture or spondylolysis. Multilevel degenerative disc disease with disc bulging and disc osteophyte complexes are noted. Facet joint arthropathy and vacuum disc phenomenon. This results in moderate mild to moderate neural foraminal narrowing. Mild central canal narrowing noted. IMPRESSION: No acute fracture or spondylolysis. Degenerative changes with disc bulging and disc osteophyte complexes. All CT scans at this facility are performed using low dose modulation techniques as appropriate to perform exam including the following: automated exposure control; use of iterative reconstruction technique; adjustment of the mA and/or kV according to patient size (this includes techniques or standardized protocols for targeted exams where dose is matched to indication/reason for exam). Reviewed, dictated and finalized at location S. IMPRESSION: No acute fracture or spondylolysis. Degenerative changes with disc bulging and disc osteophyte complexes. All CT scans at this facility are performed using low dose modulation techniqu es as appropriate to perform exam including the following: automated exposure c ontrol; use of iterative reconstruction technique; adjustment of the mA and/or kV according to patient size (this includes techniques or standardized protocol s for targeted exams where dose is matched to indication/reason for exam).
--- NOTE | ~2025-09-21 | CT_ITS ---
CT brain wo con HISTORY:falls COMPARISON: None. TECHNIQUE: Axial images were obtained of the head without intravenous contrast. FINDINGS: No acute intracranial hemorrhage, mass effect or midline shift. No extra-axial fluid collections. Chronic white matter microangiopathic changes are noted in the periventricular white matter.Visualized paranasal sinuses and mastoid air cells are clear. IMPRESSION: No acute intracranial hemorrhage or extra axial fluid collections. Chronic white matter microangiopathic changes. All CT scans at this facility are performed using low dose modulation techniques as appropriate to perform exam including the following: automated exposure control; use of iterative reconstruction technique; adjustment of the mA and/or kV according to patient size (this includes techniques or standardized protocols for targeted exams where dose is matched to indication/reason for exam). Reviewed, dictated and finalized at location S. IMPRESSION: No acute intracranial hemorrhage or extra axial fluid collections. Chronic white matter microangiopathic changes. All CT scans at this facility are performed using low dose modulation techniqu es as appropriate to perform exam including the following: automated exposure c ontrol; use of iterative reconstruction technique; adjustment of the mA and/or kV according to patient size (this includes techniques or standardized protocol s for targeted exams where dose is matched to indication/reason for exam).
--- NOTE | ~2025-09-21 | XR_ITS ---
XR chest 1V INDICATION:. 69 years Female GENERAL WEAKNESS COMPARISON: None FINDINGS: A single view of the chest demonstrates enlarged heart. Infiltrates are noted. There is no evidence of pneumothorax or pleural effusion. IMPRESSION: Bilateral infiltrates. Reviewed, dictated and finalized at location S. IMPRESSION: Bilateral infiltrates.
[2025-09-21 20:39] VITALS: BP 154/86; PULSE 94; RESP 23; O2SAT 98
[2025-09-21 20:40] VITALS: BP 154/100; PULSE 97; RESP 24; TEMP 36.5; O2SAT 99
--- OUTSIDE RECORDS SUMMARY | 2025-09-21 20:49 | XMS_ITS | Encounter Summary ---
Author Organization [facility] Address [facility] [place] [address] Care Team Providers Care Finance And Administration Manager Name Role Phone Xavier Mclaughlin Primary Care Provider [phone] Helen Mathews MD Primary Care Provider + Encounter Details Date Type Department Care Team (Late st Contact Info) Description 07/08/2022 Abstract [facility] [address] Alyse Delgado MA Social History Tobacco Use Types Packs/Day Years Used Date Smoking Tobacco: Never Smokeless Tobacco: Never Alcohol Use Standard Drinks/Week Comments No 0 (1 standard drink = 0.6 oz pur e alcohol) AUDIT-C Answer Date Recorded Frequency of Alcohol Consumption Never 11/30/2018 Average Number of Drinks Not on file 019 Frequency of Binge Drinking Not on file 07/2019 Comments No Sex and Gender Information Value Date Recorded Sex Assigned at Not on file Legal Sex Female 7:25 PM CDT Gender Identity Not on file Sexual Orientation Not on file documented as of this encounter Plan of Treatment Not on file documented as of this encounter Procedures Procedure Name Priority Date/Time Associated Diagnosis Comments CBC (OUTSIDE LAB) Routine 02/03/2023 BASIC METABOLIC PANEL Routine 10/30/2022 LIPOPROTEIN A Routine 10/09/2022 BASIC METABOLIC PANEL Routine 10/09/2022 LIPID PANEL Routine 10/09/2022 CBC (OUTSIDE LAB) Routine 04/15/2022 BNP Routine 04/15/2022 COMPREHENSIVE METABOLIC PANEL Routine 04/15/2022 THYROXINE, FREE (FT4) Routine 04/15/2022 THYROID STIM HORMONE TSH Routine 04/15/2022 documented in this encounter Results * CBC (OUTSIDE LAB) (02/03/2023) WBC 8.5 HGB 13.5 HCT 41.6 PLT 275 02/03/2023 us Default History Genericprovider LAB-OUTSIDE/ABST RACTED Final Result * (ABNORMAL) BASIC METABOLIC PANEL (10/30/2022) SODIUM S/P/B 143 POTASSIUM S/P/B 4.9 CO2 20 CHLORIDE S/P/B 100 GLUCOSE 102 mg/dL CALCIUM S/P/B 9.9 BUN 26 CREATININE S/P/B 1.29(A) 0.5 - 1.0 EGFR NON-AFR. AMER. 46 <=90 10/30/2022 us Default History Genericprovider LABORATORY Final Result * LIPOPROTEIN A (10/09/2022) LIPOPROTEIN (A) 129 <75 10/09/2022 us Default History Genericprovider LABORATORY Final Result * BASIC METABOLIC PANEL (10/09/2022) SODIUM S/P/B 146 POTASSIUM S/P/B 4.4 CO2 29 CHLORIDE S/P/B 104 GLUCOSE 70 mg/dL CALCIUM S/P/B 9.2 BUN 20 CREATININE S/P/B 0.98 0.5 - 1.0 EGFR NON-AFR. AMER. 64 <=90 10/09/2022 Default History Genericprovider LABORATORY Final Result * LIPID PANEL (10/09/2022) Pathologist [facility] CHOLESTEROL 157 HDL 79 TRIGLYCERIDES 72 NON HDL CHOLESTEROL 78 LDL (CALCULATED) 63 10/09/2022 Default History Genericprovider LABORATORY Edited Result - Final * THYROXINE, FREE (FT4) (04/15/2022) Pathologist [facility] FREE T4 1.1 04/15/2022 us Doc [facility] Abstract LABORATORY Final Result * THYROID STIM HORMONE, TSH (04/15/2022) Pathologist [facility] TSH 4.28 04/15/2022 us Doc [facility] Abstract LABORATORY Final Result * CBC (OUTSIDE LAB) (04/15/2022) [facility] WBC 8.8 HGB 11.2 HCT 35.7 PLT 315 04/15/2022 us Doc [facility] Abstract LAB-OUTSIDE/ABSTRACTED Final Result * (ABNORMAL) COMPREHENSIVE METABOLIC PANEL (04/15/2022) Pathologist [facility] SODIUM S/P/B 148 POTASSIUM S/P/B 5.4 CO2 27 CHLORIDE S/P/B 109 GLUCOSE 73 mg/dL CALCIUM S/P/B 9.3 BUN 35 CREATININE S/P/B 1.44(A) 0.5 - 1.0 EGFR AFR. AMER. 44 <=90 EGFR NON-AFR. AMER. 38 <=90 ALKALINE PHOSPHATASE S/P/B 102 ALT 8 AST 12 BILIRUBIN TOTAL S/P/B 0.5 ALBUMIN S/P/B 4.0 3.5 - 5.0 TOTAL PROTEIN S/P/B 6.8 GLOBULIN 2.8 04/15/2022 us Doc [facility] Abstract LABORATORY Final Result * BNP (04/15/2022) B TYPE NATRIURETIC PEPTIDE 17 04/15/2022 us Doc [facility] Abstract LABORATORY Final Result documented in this encounter Visit Diagnoses Not on filedocumented in this encounter Care Teams Finance And Administration Manager Relationship Specialty Start Date End Date Xavier Mclaughlin PA PCP - General 01/11/17 05/02/25 Helen Mathews MD [id number] [address] PCP - General FAMILY PRACTICE 05/03/25 documented as of this encounter
--- OUTSIDE RECORDS SUMMARY | 2025-09-21 20:49 | XMS_ITS | Clinical Summary ---
Author Organization [facility] Address [address] [place] [address] Care Team Providers Care Wagon Person Name Role Phone Gamaliel Grajeda MD Unavailable [phone] Gamaliel Grajeda MD Primary Care Provider [phone] Allergies No known active allergies Medications atorvastatin (LIPITOR) 20 mg tablet Take 1 tablet (20 mg total) by mouth daily Active albuterol HFA (PROVENTIL HFA,VENTOLIN HFA,PROAIR HFA) 90 mcg/actuation inhaler Inhale 2 puffs every 4 (four) hours as needed 2 Active ferrous sulfate 325 mg (65 mg of elemental iron) tablet Take 1 tablet (325 mg total) by mouth daily 2 Active aspirin 81 mg enteric coated tablet Take 1 tablet (81 mg total) by mouth daily 2 Active Vanicream Moisturizing lotion Apply 1 Application topically daily as needed 3 Active gabapentin (NEURONTIN) 300 mg capsule Take 1 capsule (300 mg total) by mouth 3 (three) times a day Active furosemide (LASIX) 40 mg tablet Take 1 tablet (40 mg total) by mouth 2 (two) times a day 180 tablet 1 3 Active amLODIPine (NORVASC) 5 mg tablet Take 1 tablet (5 mg total) by mouth daily Active budesonide-formo teroL (SYMBICORT) 160-4.5 mcg/actuation inhalerIndicatio ns:Bronchospasm Prevention with COPD Inhale 2 puffs 2 (two) times a day Rinse mouth with water after use. Do not swallow. 1 each 3 3 Active Additional Information Patient not taking.Reported on 04/13/2024 montelukast (SINGULAIR) 10 mg tablet Take 1 tablet (10 mg total) by mouth nightly 30 tablet 11 3 Active Additional Information Patient not taking.Reported on 04/13/2024 levothyroxine (SYNTHROID) 137 mcg tablet Take 1 tablet (137 mcg total) by mouth loss prevention supervisor before breakfast Active allopurinoL (ZYLOPRIM) 300 mg tablet Take 0.5 tablets (150 mg total) by mouth daily Active triamcinolone (KENALOG) 0.1 % cream Apply 1 g topically 2 (two) times a day 4 Active nystatin cream Apply 1 Application topically 2 (two) times a day APPLY TO AFFECTED AREA 4 Active miconazole 2 % powder Apply topically 2 (two) times a day 70 g 1 4 Active acetaminophen (TYLENOL) 325 mg tablet Take 2 tablets (650 mg total) by mouth every 4 (four) hours as needed for pain 4 Active clobetasoL (TEMOVATE) 0.05 % creamIndications :Plaque Psoriasis Apply topically 2 (two) times a day Use for 14 days to BLE with Vanicream then hold x14 days. 60 g 4 Active Active Problems Problem Noted Date Diagnosed Date Other emphysema 04/04/2024 Assessment & Plan (04/04/2024 8:48 AM CDT): Chronic, stable; recent HPI was SOB; cont rx albuterol, complete rx doxycycline. Arthralgia 04/04/2024 Assessment & Plan (04/04/2024 8:52 AM CDT): Chronic, cont rx gabapentin Metabolic syndrome 03/24/2024 Psoriasis 03/24/2024 Physical deconditioning 03/24/2024 Assessment & Plan (04/04/2024 8:55 AM CDT): I endorse admission to penitentiary care. The patient is at risk of injury, illness and a requirement for a higher level of care without this service. The patient needs assistance from the nurses and care team for all activities of daily living including dressing, hygeine of person and toilet, safe transfer and mobility, dietary needs, medication administration, and grooming. The patient will need physical and occupational therapy to progress to a safer level of care. Animal bite 10/05/2023 CKD (chronic kidney disease), stage III 10/01/20 Assessment & Plan (04/10/2024 12:15 PM CDT): Labs ordered for today but not transmitted - changed to Wednesday 04/11. Monitor. Assessment & Plan (04/07/2024 11:17 AM CDT): Cr mildly elevated. Recheck BMP Wednesday. Murmur, heart 04/28/2023 Hypercapnia 04/21/2023 Pulmonary scarring 11/10/2022 Obstructive sleep apnea 09/08/2022 Nonsmoker 09/08/[address] of the chest 09/08/2022 Type 2 diabetes mellitus wit h kidney complication, without long-term current use of insulin 07/20/2022 Assessment & Plan (04/07/2024 11:16 AM CDT): A1c 6.1. Well controlled off meds. Assessment & Plan (08/05/2022 1:31 PM CDT): A1c 6.0, Trulicity discontinued. Sliding scale insulin discontinued and Accu- Cheks have been well controlled without intervention Assessment & Plan (07/30/2022 11:37 AM CDT): BG < 130s. Will dc SSI mealtime. Accucheks prn Assessment & Plan (07/21/2022 1:05 PM CDT): A1c 6.0 Currently only on SSI. Has not required any since admission. Monitor rest of week - if continues to not required d/c mealtime insulin. Will dc nightime today. Assessment & Plan (07/20/2022 8:17 AM CDT): A1C 6.0 on 12/2021. BG 71-109. On SSI. Accucheks. Trulicity dcd Mixed hyperlipidemia 07/20/2022 Assessment & Plan (04/04/2024 8:50 AM CDT): Chronic, contr rx lipitor Assessment & Plan (08/05/2022 1:30 PM CDT): Stable, continue statin Assessment & Plan (07/20/2022 8:19 AM CDT): Cont lipitor 20 mg Chronic gout of multiple sites 07/20/2022 Assessment & Plan (04/04/2024 8:49 AM CDT): Monitor and cont rx allopurinol. Assessment & Plan (08/05/2022 1:32 PM CDT): Stable, continue allopurinol Assessment & Plan (07/30/2022 11:38 AM CDT): syx controlled with med Assessment & Plan (07/20/2022 8:20 AM CDT): On allopurinol 300 mg Fall 07/05/2022 Chronic respiratory failure with hypercapnia Assessment & Plan (04/13/2024 11:54 AM CDT): Compensated. Baseline. Continue O2. Not discharged/transferred on any inhaler. FU with PCP. Assessment & Plan (04/10/2024 12:15 PM CDT): Compensated. Baseline. BMI 50.0-59.9, adult 12/22/2021 Assessment & Plan (08/20/2022 10:03 AM CDT): Morbidly obese. Weight loss would significantly improve her current condition. Encouraged diet exercise and potential evaluation for weight loss surgery. Acquired hypothyroidism 12/22/2021 Assessment & Plan (04/04/2024 8:52 AM CDT): Cont rx synthroid Assessment & Plan (08/05/2022 1:31 PM CDT): Recent TSH within normal limits, continue Synthroid 112 mcg daily Assessment & Plan (07/20/2022 8:12 AM CDT): TSH 3.6. On synthroid 112 mcg Essential hypertension 12/22/2021 Assessment & Plan (04/04/2024 8:49 AM CDT): Chronic, stable; cont rx norvasc Assessment & Plan (08/20/2022 10:03 AM CDT): Hypertension chronic and controlled. Continue medical therapy Assessment & Plan (08/05/2022 1:30 PM CDT): Blood pressure control, continue only Lasix Assessment & Plan (07/30/2022 11:37 AM CDT): BP controlled. On lasix Assessment & Plan (07/21/2022 10:40 AM CDT): BP stable. Continue Lasix daily. Assessment & Plan (07/20/2022 8:19 AM CDT): TRANG controlled. On lasix 40 mg daily. Lymphedema of both lower extremities 12/22/2021 Assessment & Plan (08/20/2022 10:04 AM CDT): Edema stable. She has chronic skin changes and likely secondary to morbid obesity. Patient has been non compliant with pneumatic compression. I stressed the absolute importance for compliance with her compression regimen. Follow-up with me on a p.r.n. basis. Assessment & Plan (08/05/2022 1:33 PM CDT): Edema is overall stable, continue compression, elevation, Lasix 40 mg daily Assessment & Plan (08/03/2022 10:29 PM CDT): Edema overall stable. Continue compression, elevation. Continue Lasix 40 mg daily Assessment & Plan (07/30/2022 11:38 AM CDT): Cont lasix, paul wrap, Edema improving Assessment & Plan (07/20/2022 8:19 AM CDT): Cont lasix 40 mg daily. Monitor lytes and wt. Paul wrap Venous stasis dermatitis of both lower extremiti es 12/22/2021 Assessment & Plan (04/13/2024 11:53 AM CDT): Continue Eucerin + Clobetasol BID x 14d, off 14d. Monitor. Assessment & Plan (04/07/2024 11:14 AM CDT): Will start Eucerin + Clobetasol BID x 14d. Monitor. Assessment & Plan (04/04/2024 8:50 AM CDT): Dietary consult, encourage wt management. Ordered lovenox rx for dvt prophy Tinea pedis of both feet 12/22/2021 Overview (12/22/2021): Between 4-5th toes bilaterally Left knee pain 04/07/2018 Patella, chondromalacia 04/07/2018 Chronic diastolic congestive heart failure Assessment & Plan (04/13/2024 11:54 AM CDT): Compensated. Continue Lasix. Monitor. Assessment & Plan (04/10/2024 12:13 PM CDT): Compensated. Continue Lasix. Monitor. Assessment & Plan (04/07/2024 11:16 AM CDT): Acute phase resolved. Continue Lasix. Monitor. Resolved Problems Problem Noted Date Diagnosed Date Resolved Date Lymphedema 04/04/2024 04/04/2024 Normocytic anemia 03/24/2024 04/07/2024 History of CHF (congestive heart failure) 10/05/2023 04/07/2024 Assessment & Plan (04/04/2024 8:51 AM CDT): Cont rx lasix Acute hypoxic respiratory failure 10/01/2023 04/13/2024 Raccoon bite 10/01/2023 04/07/2024 Diastolic dysfunction 05/27/20232023 Lower extremity edema 04/28/20232023 BMI 60.0-69.9, adult 09/08/2022 024 Shortness of breath 09/08/2022 04/07/20 24 Venous ulcer of left leg 07/30/2022 Assessment & Plan (08/05/2022 1:32 PM CDT): Wound continues to slowly improved. Continue current dressing changes Assessment & Plan (08/03/2022 10:32 PM CDT): Wound improving, no surrounding signs or symptoms of worsening cellulitis. Continue current dressing changes Assessment & Plan (07/30/2022 9:11 AM CDT): Continue cleans wound with cleanser, skin prep, apply Xeroform, covered with ABD and Royal wrap, Tubigrip. Change daily or p.r.n.. Follows by [facility] Metabolic acidosis with respiratory acidosis 07/21/2022 Assessment & Plan (07/20/2022 7:55 AM CDT): pH of 7.1, pCO2 of 52 and Bicarb of 14. Patient has been treated with sodium bicarb. Cellulitis of both lower extremities 07/20/2022 04/07/2024 Assessment & Plan (08/05/2022 1:32 PM CDT): Antibiotics were completed, skin is stable, wound slowly healing. Encouraged lower extremity elevation, compression to reduce swelling Assessment & Plan (07/21/2022 10:45 AM CDT): Abx complete. Continue wound care. Assessment & Plan (07/20/2022 7:57 AM CDT): Presented with swelling BLE, C/B frequent falls. Treated with vancomycin, Rocephin, completed 11 day course. Blood culture negative. Continue to monitor Bandemia 07/20/2022 04/07/2024 Assessment & Plan (07/21/2022 1:02 PM CDT): Trending down. Continue to monitor. Assessment & Plan (07/20/2022 8:07 AM CDT): WBC elevated, can be steroid induced. Has completed abx for legs cellulitis. BCx neg, CXR wnl, UCx criteria not met. Completing prednisone on 07/24. Monitor CBC Acute kidney injury superimp osed on chronic kidney disease 07/20/2022 04/04/2024 Assessment & Plan (08/05/2022 1:31 PM CDT): Renal function has returned to baseline, continue Lasix 40 mg daily Assessment & Plan (08/03/2022 10:35 PM CDT): Renal function is overall stable, continue to monitor as patient is on Lasix. Assessment & Plan (07/21/2022 1:04 PM CDT): Continues to fluctuate. 1.9 today. Montior. Assessment & Plan (07/20/2022 8:11 AM CDT): Cr 3.4 in ER (baseline around 1.3). Nephrology consulted. Cr improved with IVF. Lisinopril dcd. Now Cr 1.7. Avoid nephrotoxic drugs. Monitor renal function Hyperkalemia 07/06/2022 07/21/2022 Assessment & Plan (07/20/2022 7:56 AM CDT): On presentation potassium was 7. Given calcium gluconate, insulin, dextrose, Lokelma. Home med lisinopril discontinued. Potassium levels improved. Continue to monitor Assessment & Plan (07/06/2022 10:01 AM CDT): Treat with Ca gluconate,Insulin,Dextrose,Lokelma and alb nebs.nephrology has been consulted.Telemetry monitoring Pneumonia due to COVID-19 virus 12/22/2021 07/21/2022 Acute respiratory failure due to COVID-19 12/22/2021 07/21/2022 Decreased GFR 12/12/2020 04/04/2024 Lymphedema 04/13/2018 04/04/2024 Immunizations Immunization Administration Dates Next Due Influenza, Quadrivalent, Spl it, Intramuscular 09/13/2019,12/16/2018 Influenza, Quadrivalent, Spl it, Preservative Free, Intramuscular 08/25/2020,08/21/2017 Pneumococcal Polysaccharide PPV23 12/16/2018 Rabies Immune Globulin 10/01/2023 Rabies Vaccine 10/15/2023, 3,10/04/2023,10/01 Td, adsorbed 01/15/2012 Surgical History Surgery Date Site/Laterality Comments BREAST LUMPECTOMY MOLE REMOVAL Back Medical History Medical History Date Comments Hypertension Thyroid disease hypothyroidism Hyperlipidemia CKD (chronic kidney disease), stage III (HCC) Lymphedema Asthma Emphysema lung CHF (congestive heart failure) (HCC) Psoriasis Lymphedema 04/04/2024 Other emphysema 04/04/2024 Social History Tobacco Use Types Packs/Day Years Used Date Smoking Tobacco: Never Smokeless Tobacco: Never Tobacco Cessation:Counseling Given: Not Answered [facility] Utilities Answer Date Recorded In the past 12 months has Gr[employer]per, gas, oil, or water Nobl threatened to shut off services in your home? No 03/24/2024 Social Connection and Isolation Panel Answer Date Recorded In a typical week, how many times do you talk on the phone with family, friends, or neighbors? Three times a week 03/24/2024 How often do you get togethe r with friends or relatives? Three times a week 03/24/2024 How often do you attend chur ch or advent services? Never 03/24/2024 Do you belong to any clubs o r organizations such as mosque groups, unions, fraternal or athletic groups, or school groups? No 03/24/2024 How often do you attend meet ings of the clubs or organizations you belong to? Never 03/24/2024 Are you , , di vorced, , never , or living with a partner? Never 03/24/2024 AUDIT-C Answer Date Recorded Frequency of Alcohol Consumption Not on file 03/24/2024 Q2: How many drinks containi ng alcohol do you have on a typical day when you are drinking? Patient does not drink Q3: How often do you have si x or more drinks on one occasion? Never 03/24/2024 Overall Financial Resource Strain (CARDIA) Answe r Date Recorded How hard is it for you to pa y for the very basics like food, housing, medical care, and heating? Not very hard 03/24/2024 Hunger Vital Sign Answer Date Recorded Within the past 12 months, y ou worried that your food would run out before you got the money to buy more. Never true 03/26/20 24 Within the past 12 months, t he food you bought just didn't last and you didn't have money to get more. Never true 03/26/2024 PRAPARE - Transportation Answer Date Re corded In the past 12 months, has l ack of transportation kept you from medical appointments or from getting medications? No 01/2024 In the past 12 months, has l ack of transportation kept you from meetings, work, or from getting things needed for daily living? No 03/24/2024 Housing Stability Vital Sign Answer Octavio e Recorded In the last 12 months, was t here a time when you were not able to pay the mortgage or rent on time? No 03/24/2024 In the last 12 months, how many places have you lived? 1 03/24/2024 In the last 12 months, was t here a time when you did not have a steady place to sleep or slept in a mcc (including now)? No 03/24/2024 Personal Safety Answer Date Recorded Have you ever been in or are you currently in a harmful physical or emotional relationship or is someone making you feel afraid or unsafe? 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 Gender Identity Not on file Sexual Orientation Not on file Obstetrics History Last Filed Vital Signs Vital Sign Reading Time Taken Comments Blood Pressure 125/54 04/13/2024 11:48 AM CDT Pulse 55 04/13/2024 11:48 AM CDT Temperature 36.3 C (97.3 F) 04/13/2024 11:48 AM CDT Respiratory Rate 20 04/13/2024 11:4 8 AM CDT Oxygen Saturation 100% 04/13/2024 11: 48 AM CDT Inhaled Oxygen Concentration - - Weight 148.2 kg (326 lb 11.2 oz) 2023 12:10 AM CDT Height 157.5 cm (5' 2) 03/24/2024 12:1 0 AM CDT Body Mass Index 59.75 03/24/2024 12:10 AM CDT Plan of Treatment Health Maintenance Due Date Last Done Comments Albumin Creatinine Ratio, Urine 1955 Breast Cancer Screening-Mammogram 1955 Colon Cancer Screening-Colonoscopy 1955 Depression Screening 1955 Hepatitis C Screening 1955 Osteoporosis Screening-Bone Density Scan 1955 Dilated Eye Exam 1955 Foot Exam 1955 Hepatitis B Screening 1973 Zoster Vaccine (1 of 2) 2005 DTaP/Tdap/Td Vaccine (1 - Tdap) 01/16/2012 2 Pneumococcal vaccine 65+ (2 of 2 - PCV) 12/16/2019 12/16/2018 Well Visit 65+ 2020 Hemoglobin A1C 09/24/2024 03/24/2024, 08/3 , 12/23/2021 Lipid Panel 03/24/2025 03/24/2024, 07/0 11/2022, 10/09/2022 Fall Risk Assessment 04/02/2025 04/02/2024 eGFR 04/11/2025 04/11/2024, 03/22, 03/30/2024, Additional history exists Covid-19 Vaccine (3 - 2024-2 6 season) 2025 04/18/2021, 03/27/2021 Influenza Vaccine (#1) 2025 0, 09/13/2019, 12/16/2018, Additional history exists Procedures Procedure Name Priority Date/Time Associated Diagnosis Comments EGFR Routine 04/11/2024 7:20 AM CDT HEMOGLOBIN A1C Routine 03/24/2024 2:13 AM CDT LIPID PANEL Routine 03/24/2024 2:13 AM CDT from Last 3 Months or Most Recently Relevant to Health Maintenance Results * (ABNORMAL) eGFR (04/11/2024 7:20 AM CDT) eGFR 33(L) >=60 mL/min/1. 73 m2 [facility] Comment: Interpretive Data Reference Interval Normal >/= 90 mL/min/1.73m2 Mildly decreased* 60 - 89 mL/min/1.73m2 Mildly to moderately decreased 45 - 59 mL/min/1.73m2 Moderately to severely decreased 30 - 44 mL/min/1.73m2 Severely decreased 15 - 29 mL/min/1.73m2 Kidney Failure < 15 mL/min/1.73m2 *Relative to young adult level Estimated glomerular filtration rate is determined by the 2020 CKD-EPI equation recommended by the National Kidney Foundation (A Unifying Approach to GFR Estimation: Recommendations of the NKF-ASK Task Force on Reassessing the Inclusion of Race in Diagnosing Kidney Disease, JASN 2020). The CKD-EPI equation should not be used for patients with unstable renal function and has not been validated in children and those over 70. Current interpretive data was last reviewed 2021. [facility], [address] [place] [address], [place]., [address] Blood 04/11/2024 7:20 AM CDT 04/11/2024 7:39 AM CDT us Kirsty Paniagua TRAINING AND QUALITY MANAGER LAB BLOOD ORDERABLES Final Result [facility] [address] [place] [address] Department [place] [address] * (ABNORMAL) Hemoglobin A1c (03/24/2024 2:13 AM CDT) Hgb A1C 6.1(H) 4.0 - 5.6 % Estimated Average Glucose 128 mg/dL [facility] Comment: The ADA recommends reporting an estimated Average Glucose (eAG) with all Hemoglobin A1c results using the equation derived from a study of 507 normal and diabetic adults. Minority populations were underrepresented and children were not included. (Diabetes Care 31:0456-4597, 2008). The eAG is not equivalent to a fasting glucose. Blood 03/24/2024 2:13 AM CDT 03/24/2024 3:38 AM CDT us Rip Miguel Trujillo TRAINING AND QUALITY MANAGER LAB BLOOD ORDERABLES Fin al Result [facility] [address] [facility] Department [place] [address] * Lipid panel (03/24/2024 2:13 AM CDT) Cholesterol 188 30 - 199 mg/dL Comment: Interpretive Data Ages < or = 19 years Acceptable: <170 mg/dL Borderline high: 170-199 mg/dL High: >or= 200 mg/dL Ages > or = 20 years Desirable: <200 mg/dL Borderline high: 200-239 mg/dL High: >or= 240 mg/dL Literature References: 1. Expert Panel on Integrated Guidelines for Cardiovascular Health and Risk Reduction in Children and Adolescents. Pediatrics 2011;128:S213 2. NCEP Expert Panel. Circulation 2004;110:227 Current Interpretive Data was last revised on 2018. Triglycerides 142 <=149 mg/dL [facility] Comment: Interpretive Data Ages < or = 9 years Acceptable: <75 mg/dL Borderline high: 75-99 mg/dL High: >or= 100 mg/dL Ages 10 to 20 years Acceptable: <90 mg/dL Borderline high: 90-129 mg/dL High: >or= 130 mg/dL Ages > or = 20 years Desirable: <150 mg/dL Borderline high: 150-199 mg/dL High: 200-499 mg/dL Very high: >or= 499 mg/dL Literature References: 1. Expert Panel on Integrated Guidelines for Cardiovascular Health and Risk Reduction in Children and Adolescents. Pediatrics 2011;128:S213 2. NCEP Expert Panel. Circulation 2004;110:227 Current Interpretive Data was last revised on 2018. HDL 63 >=40 mg/dL [facility] Comment: Interpretive Data Ages < or = 19 years Acceptable: >45 mg/dL Borderline low: 40-45 mg/dL Low: <40 mg/dL Ages > or = 20 years Desirable: >or= 60 mg/dL Low: <40 mg/dL Literature References: 1. Expert Panel on Integrated Guidelines for Cardiovascular Health and Risk Reduction in Children and Adolescents. Pediatrics 2011;128:S213 2. NCEP Expert Panel. Circulation 2003;110:227 Current Interpretive Data was last revised on 2018. LDL, calculated 97 <=129 mg/dL [facility] Comment: Interpretive Data Ages < or = 19 years Acceptable: <110 mg/dL Borderline high: 110-129 mg/dL High: >or= 130 mg/dL Ages > or = 20 years Optimal: <100 mg/dL Near optimal: 100-129 mg/dL Borderline high: 130-159 mg/dL High: >160 mg/dL Literature References: 1. Expert Panel on Integrated Guidelines for Cardiovascular Health and Risk Reduction in Children and Adolescents. Pediatrics 2011;128:S213 2. NCEP Expert Panel. Circulation 2004;110:227 Current Interpretive Data was last revised on 2018. Non-HDL Cholesterol 125 mg/dL [facility] Comment: Interpretive Data Ages < or = 19 years Acceptable: <120 mg/dL Borderline high: 120-144 mg/dL High: >145 mg/dL Ages > or = 20 years When triglycerides are >200 mg/dL, Non-HDL cholesterol is a secondary target of therapy with treatment goals that are 30 mg/dL greater than the LDL cholesterol target. Literature References: 1. Expert Panel on Integrated Guidelines for Cardiovascular Health and Risk Reduction in Children and Adolescents. Pediatrics 2011;128:S213 2. NCEP Expert Panel. Circulation 2003;110:227 Current Interpretive Data was last revised on 2018. Chol/HDL ratio 3 [facility] Blood 03/24/2024 2:13 AM CDT 03/24/2024 3:38 AM CDT us Rip Miguel Trujillo TRAINING AND QUALITY MANAGER LAB BLOOD ORDERABLES Fin al Result [facility] [address] [facility] [place] [address] from Last 3 Months or Most Recently Relevant to Health Maintenance Insurance [facility] Member Subscriber Plan / Payer (Ef fective 2022-Present) Name:June Petty Relation to Subscriber:Self Name:June Petty Payer ID:[id number] (NAIC) Type:[facility] HMO/PPO Address: [place] [phone] MEDICARE [facility] Advance Directives For more information, please contact: [phone] * LIMITED - No CPR (Latest Code Status on File) Date Activated Date Inactivated Comments 03/23/2024 11:43 PM 04/02/2024 6:48 PM Question Answer Comments Provide aggressive medical m anagement before a full cardiopulmonary arrest occurs. Use antibiotics, IV Fluids, and medical treatment unless specifically selected below: No intubation * Full Code Date Activated Date Inactivated Comments 03/23/2024 10:37 PM 03/23/2024 11:43 PM * Full Code Date Activated Date Inactivated Comments 10/01/2023 1:53 PM 10/06/2023 8:00 PM * Full Code Date Activated Date Inactivated Comments 04/21/2023 11:50 PM 04/30/2023 9:51 PM * Full Code Date Activated Date Inactivated Comments 07/05/2022 9:59 PM 07/18/2022 10:06 PM Care Teams Wagon Person Relationship Specialty Start Date End Date Gamaliel Grajeda MD PCP - General Pulmonary Disease 10/27/24 Gamaliel Grajeda MD Consulting Physician Pulmonary Disease 10/27/24
--- NOTE | 2025-09-21 20:50 | ED.BACK ---
HPI - Back Pain/Injury General Chief Complaint: Back Pain/Injury Stated Complaint: back pain Time Seen by Provider: 09/21/25 20:33 Source: patient and EMS Mode of arrival: EMS Limitations: no limitations History of Present Illness HPI Narrative: 69 YEARS OLD WHITE FEMALE CAME TO THE ED BY AMBULANCE FROM HOME AFTER SLIDING DOWN WHILE WALKING TRYING TO GO TO THE BATHROOM USING HER WALKER. PATIENT REPORTS LOWER BACK PAIN WHICH IS NEW TODAY. SHE DENIES ANY FEVER, CHILLS, NAUSEA, VOMITING, DIARRHEA, CONSTIPATION, CHEST PAIN OR SHORTNESS OF BREATH OR HEAD INJURY OR HEADACHE OR NECK PAIN. , HISTORY OF KIDNEY INSUFFICIENCY, CHRONIC RESPIRATORY FAILURE, OBESITY, IRON DEFICIENCY ANEMIA, HYPOTHYROIDISM, HYPERTENSION, PATIENT CURRENTLY ON CHRONIC OXYGEN BY NASAL CANNULA AT 3 LITERS/MINUTE. PATIENT IS TELLING ME THAT SHE LIVES WITH HER SISTER WHO BEEN DIAGNOSED OF CANCER AND UNABLE TO MANAGE TO TAKE CARE OF HERSELF, SEVERE POOR HYGIENIC CONDITION, EMT REPORT THAT PATIENT HOUSE IS EXTREMELY FILTHY WITH STOOL AND URINE ALL OVER THE PLACE. Related Data Home Medications ?Medication ?Instructions ?Recorded ?Confirmed ?Last Taken ?Type allopurinol 100 mg tablet 100 mg PO DAILY 10/27/24 09/22/25 09/10/25 History amlodipine 5 mg tablet 5 mg PO DAILY 10/27/24 09/22/25 09/10/25 History atorvastatin 20 mg tablet 20 mg PO DAILY 10/27/24 09/22/25 09/10/25 History ferrous sulfate 325 mg (65 mg 325 mg PO DAILY 10/27/24 09/22/25 09/10/25 History iron) tablet furosemide 40 mg tablet 40 mg PO DAILY 10/27/24 09/22/25 09/10/25 History gabapentin 300 mg capsule 300 mg PO TID 10/27/24 09/22/25 09/10/25 History levothyroxine 137 mcg tablet 137 mcg PO DAILY 10/27/24 09/22/25 09/10/25 History montelukast 10 mg tablet 10 mg PO HS 10/27/24 09/22/25 09/10/25 History Allergies Allergy/AdvReac Type Severity Reaction Status Date / Time No Known Allergies Allergy Verified 09/22/25 05:02 Review of Systems Review of Systems: All systems reviewed & are unremarkable except as noted in HPI and below PMFSH Past Medical History Medical History (Updated 09/24/25 @ 07:51 by Jes Moreno MD) Congestive heart failure Chronic respiratory failure Asthma Cardiomyopathy Echo 10/28/2024ummary 1. Complete two-dimensional, color flow and Doppler transthoracic echocardiogram is performed. 2. Left ventricle is normal size and systolic function. There is concentric left ventricular remodeling. The left ventricular ejection fraction is visually estimated to be 60-65%. 3. The right ventricle is normal in size and systolic function. 4. There is no significant valvular disease Obesity Iron deficiency anemia Hypothyroidism Gout Hypertension Surgical History Surgical History (Updated 09/22/25 @ 07:03 by Eve Freitas APRN) History of colon resection Social History Social History (Updated 09/22/25 @ 07:06 by Eve Freitas APRN) Social History: She lives with her sister and is single. She has never been or had any children. Code status: Full code Smoking status: Never smoker Alcohol intake: never Substance use: never Substance use type: does not use Do You Feel Safe in your Home?: Yes Lack of Transportation: No Lack of Food: Never True Current Housing: I Have Housing Concerned About Future Housing: No Difficulty Paying Gas/Electric Bills: No Difficulty Paying for Meds: No Currently Unemployed: No Education: High School Diploma/GED Difficulty w/ Childcare or Family Care: No Spiritual care concerns: No Exam Narrative: GENERAL APPEARANCE: WELL-DEVELOPED, WELL-NOURISHED, OBESE, SEVERE POOR HYGIENIC CONDITION, STOOL AND URINE ALL OVER HER BODY. SKIN: NORMAL COLOR, CHRONIC STASIS DERMATITIS BILATERALLY HEAD: NORMOCEPHALIC, NONTRAUMATIC EYES: CLEAR CONJUNCTIVA ENT: OROPHARYNX NORMAL, EARS NORMAL, NOSE NORMAL NECK: SUPPLE, NONTENDER CHEST AND RESPIRATORY: AIRWAY PATENT, NO RESPIRATORY DISTRESS, NO ACCESSORY MUSCLE USE. NASAL CANNULA ON, 3 LITER/MINUTE, HEART: REGULAR RATE/RHYTHM ABDOMEN: SOFT, NONTENDER, NO ORGANOMEGALY, QUIET BOWEL SOUNDS VASCULAR: NORMAL PERIPHERAL PULSES, NORMAL CAPILLARY REFILL. MUSCULOSKELETAL: LOWER BACK PAIN, NO BRUISES, NO SWELLING OR RASH NEUROLOGIC: ALERT AND ORIENTED ?3, GASTROENTEROLOGY MANAGER IS NORMAL TESTED, NO GROSS MOTOR DEFICIT Course Consultations Consultation #1: PATIENT CARE TURNED OVER TO DR. Navarro AT SHIFT CHANGE, AWAITING LABS, IMAGING, DISPOSITION. PATIENT BEEN RESTING QUIETLY IN THE EMERGENCY ROOM WITHOUT ANY ISSUES OR PROBLEMS. Date: 09/21/25 Time: 22:01 Vital Signs Vital signs: Vital Signs Pulse Rate 94 09/21/25 20:39 Respiratory Rate 23 H 09/21/25 20:39 Blood Pressure 154/86 H 09/21/25 20:39 Pulse Oximetry 98 09/21/25 20:39 Temperature 36.5 C 09/24/25 05:18 Pulse Rate 80 09/24/25 05:18 Respiratory Rate 20 09/24/25 05:18 Blood Pressure 113/61 09/24/25 05:18 Pulse Oximetry 98 09/24/25 05:18 Oxygen Delivery Nasal Cannula 09/23/25 20:00 Oxygen Flow Rate 3 09/23/25 20:00 Fraction of Inspired Oxygen 32 09/22/25 20:00 MDM - Back Pain/Injury MDM Narrative Medical decision making narrative: PATIENT CAME WITH GENERAL WEAKNESS, MULTIPLE FALLS, UNABLE TO MANAGE CARE WITHOUT MARKETING COMMUNICATIONS MANAGER, LIVES WITH HER SISTER WHO BEEN DIAGNOSIS OF CANCER. VITAL SIGNS ARE STABLE PHYSICAL EXAMINATION SHOWING POOR HYGIENIC CONDITION, OBESITY, 3 L OF OXYGEN BY NASAL CANNULA, CHRONIC, LOWER BACK TENDERNESS DIFFERENTIAL DIAGNOSIS INCLUDE GENERAL WEAKNESS, ELECTROLYTE IMBALANCE, DEHYDRATION, POOR HYGIENIC CONDITION, UNABLE TO MANAGE LIVING WITHOUT MARKETING COMMUNICATIONS MANAGER AND HELP. BLOOD WORKUP TODAY INCLUDES CBC, CMP, TSH SHOWED URINALYSIS SHOWED CT LUMBAR SPINE SHOWED Differential Diagnosis Differential diagnosis: Likely other ( ABOVE) Lab Data 09/24/25 05:48 09/24/25 05:48 Labs: Lab Results 09/21/25 09/22/25 09/22/25 Range/Units 23:22 00:43 02:22 WBC 11.7 H (4.5-10.0) K/mm3 RBC 4.60 (4.2-5.4) M/mm3 Hgb 12.8 (12.0-15.0) g/dL Hct 45.9 (37.0-47.0) % MCV 99.8 (80-100) fl MCH 27.8 (26-34) pg MCHC 27.9 L (32-36) g/dl RDW 14.1 (11.5-14.5) % Plt Count 297 (150-375) k/mm3 MPV 9.1 (7.4-10.4) fl Immature Gran % (Auto) 0.9 H (0-0.5) % Neut % (Auto) 83.9 H (45.5-73.1) % Lymph % (Auto) 7.2 L (18.3-44.2) % Early % (Auto) 5.6 (2.6-8.5) % Eos % (Auto) 2.1 (0-4.4) % Baso % (Auto) 0.3 (0.2-1.2) % Lymph # (Auto) 0.84 L (0.9-3.2) K/mm3 Early # (Auto) 0.7 H (0.1-0.6) K/mm3 Eos # (Auto) 0.3 (0-0.3) K/mm3 Baso # (Auto) 0.0 (0.0-0.1) K/mm3 Abs Immat Gran (auto) 0.11 H (0.00-0.031) K/mm3 Absolute Neuts (auto) 9.8 H (1.3-6.7) K/mm3 Absolute Nucleated RBC 0.000 (0.0-0.012) K/mm3 Nucleated RBC % 0.0 (0.0-0.2) % PT 12.5 (11.1-14.7) Seconds INR 0.9 APTT 25.2 (22.3-36.8) Seconds Sodium 139 (137-145) mmol/L Potassium 4.8 (3.4-5.0) mmol/L Chloride 95 L (98-107) mmol/L Carbon Dioxide 37 H (22-30) mmol/L Anion Gap 7 (4-12) mmol/L BUN 20 H (7-17) mg/dL Creatinine 0.96 (0.7-1.0) mg/dL Estim Creat Clear Calc 67 ml/min Estimated GFR 58 L (59 - ) Glucose 83 (65-110) mg/dL Lactic Acid 1.5 (0.7-2.0) mmol/L Calcium 8.9 (8.4-10.2) mg/dL Magnesium (1.6-2.3) mg/dL Total Bilirubin 0.6 (0.2-1.3) mg/dL AST 24 (14-36) U/L ALT 11 (6-35) U/L Alkaline Phosphatase 102 (38-126) U/L C-Reactive Protein 1.5 H (<1.0) mg/dL Total Protein 7.8 (6.3-8.2) g/dL Albumin 4.2 (3.5-5.1) g/dL TSH 11.600 H (0.465-4.680) uIU/mL TSH (Reflex) (0.465-4.68) uIU/mL Free T4 (0.78-2.19) ng/dL Urine Color Yellow (Yellow) Urine Appearance Cloudy H (Clear) Urine pH 5.0 (5.0-9.0) Ur Specific [place] 1.020 (1.001-1.035) Urine Protein 3+ H (Negative) mg/dL Urine Glucose (UA) Negative (Negative) mg/dL Urine Ketones Negative (Negative) mg/dL Ur Blood (Man) Trace (Negative) Urine Nitrate Positive H (Negative) Urine Bilirubin Negative (Negative) Urine Urobilinogen 0.2 (<2.0) mg/dL Add Ur Microanalysis Reviewed Leukocyte Esterase Rfl 1+ H (Negative) JENNA/UL Urine RBC 0-2 (0-2) /hpf Urine WBC 21-50 H (0-3) /hpf Ur Squamous Epith Cells None seen (Few) /hpf Urine Bacteria 4+ H /hpf Urine Casts 6-10 09/22/25 09/23/25 Range/Units 07:41 05:23 WBC 9.1 6.3 (4.5-10.0) K/mm3 RBC 3.96 L 4.02 L (4.2-5.4) M/mm3 Hgb 11.1 L 11.2 L (12.0-15.0) g/dL Hct 39.1 39.4 (37.0-47.0) % MCV 98.7 98.0 (80-100) fl MCH 28.0 27.9 (26-34) pg MCHC 28.4 L 28.4 L (32-36) g/dl RDW 14.2 14.3 (11.5-14.5) % Plt Count 235 265 (150-375) k/mm3 MPV 8.5 9.3 (7.4-10.4) fl Immature Gran % (Auto) 0.6 H (0-0.5) % Neut % (Auto) 65.7 (45.5-73.1) % Lymph % (Auto) 19.4 (18.3-44.2) % Early % (Auto) 7.8 (2.6-8.5) % Eos % (Auto) 6.0 H (0-4.4) % Baso % (Auto) 0.5 (0.2-1.2) % Lymph # (Auto) 1.22 (0.9-3.2) K/mm3 Early # (Auto) 0.5 (0.1-0.6) K/mm3 Eos # (Auto) 0.4 H (0-0.3) K/mm3 Baso # (Auto) 0.0 (0.0-0.1) K/mm3 Abs Immat Gran (auto) 0.04 H (0.00-0.031) K/mm3 Absolute Neuts (auto) 4.1 (1.3-6.7) K/mm3 Absolute Nucleated RBC 0.000 (0.0-0.012) K/mm3 Nucleated RBC % 0.0 (0.0-0.2) % PT (11.1-14.7) Seconds INR APTT (22.3-36.8) Seconds Sodium 137 138 (137-145) mmol/L Potassium 4.7 4.9 (3.4-5.0) mmol/L Chloride 97 L 94 L (98-107) mmol/L Carbon Dioxide 38 H 38 H (22-30) mmol/L Anion Gap 2 L 6 (4-12) mmol/L BUN 18 H 16 (7-17) mg/dL Creatinine 0.92 0.89 (0.7-1.0) mg/dL Estim Creat Clear Calc 70 72 ml/min Estimated GFR > 60 > 60 (59 - ) Glucose 88 78 (65-110) mg/dL Lactic Acid (0.7-2.0) mmol/L Calcium 8.3 L 8.0 L (8.4-10.2) mg/dL Magnesium 1.6 (1.6-2.3) mg/dL Total Bilirubin 0.4 (0.2-1.3) mg/dL AST 17 (14-36) U/L ALT 8 (6-35) U/L Alkaline Phosphatase 77 (38-126) U/L C-Reactive Protein (<1.0) mg/dL Total Protein 5.6 L (6.3-8.2) g/dL Albumin 3.0 L (3.5-5.1) g/dL TSH (0.465-4.680) uIU/mL TSH (Reflex) 12.900 H (0.465-4.68) uIU/mL Free T4 0.62 L (0.78-2.19) ng/dL Urine Color (Yellow) Urine Appearance (Clear) Urine pH (5.0-9.0) Ur Specific [place] (1.001-1.035) Urine Protein (Negative) mg/dL Urine Glucose (UA) (Negative) mg/dL Urine Ketones (Negative) mg/dL Ur Blood (Man) (Negative) Urine Nitrate (Negative) Urine Bilirubin (Negative) Urine Urobilinogen (<2.0) mg/dL Add Ur Microanalysis Leukocyte Esterase Rfl (Negative) JENNA/UL Urine RBC (0-2) /hpf Urine WBC (0-3) /hpf Ur Squamous Epith Cells (Few) /hpf Urine Bacteria /hpf Urine Casts Critical Care Time Critical Care Time Critical Care Time: No Discharge Plan Discharge Clinical Impression: Urinary tract infection, Pneumonia Patient Disposition: Still a Patient Condition: Stable
--- NOTE | 2025-09-21 21:11 | ECG_ITS ---
Test Date: 2025-09-21 23:43:01 Measurements Intervals [place] Rate: 98 P: 22 [place]: 195 QRS: 10 QRSD: 87 T: 2 QT: 340 QTc: 435 Interpretive Statements SINUS RHYTHM WITH OCCASIONAL VENTRICULAR PREMATURE COMPLEXES INFERIOR MYOCARDIAL INFARCTION , PROBABLY OLD [40+ ms Q WAVE AND/OR ST/T ABNORMALITY IN II/aVF] Compared to ECG 10/27/2024 14:17:01 Ventricular premature complex(es) now present Sinus tachycardia no longer present Electronically Signed On 09-22-2025 11:59:58 CDT by Sky Reyes M.D.
[2025-09-21 22:43] VITALS: BP 149/78; PULSE 92; RESP 15; O2SAT 96
[2025-09-21 23:30] VITALS: BP 170/66; PULSE 91; RESP 18; O2SAT 98
[2025-09-21 23:43] LABS: Hematocrit 45.9 % (37.0-47.0); Hemoglobin 12.8 g/dL (12.0-15.0); Immature Granulocyte Percent A 0.9 % (0-0.5); Lymphocytes Absolute Auto 0.84 K/mm3 (0.9-3.2); Mean Corpuscular HGB Conc 27.9 g/dl (32-36); Mean Corpuscular Hemoglobin 27.8 pg (26-34); Mean Corpuscular Volume 99.8 fl (80-100); Nucleated Red Blood Cells Absolute Auto 0.000 K/mm3 (0.0-0.012); Nucleated Red Blood Cells Perc 0.0 % (0.0-0.2); Platelet Count Result 297 k/mm3 (150-375); Red Blood Count 4.60 M/mm3 (4.2-5.4); White Blood Count 11.7 K/mm3 (4.5-10.0)
[2025-09-21 23:54] LABS: Alanine Aminotransferase 11 U/L (6-35); Alkaline Phosphatase 102 U/L (38-126); Aspartate Amino Transferase 24 U/L (14-36); Bilirubin,Total 0.6 mg/dL (0.2-1.3); Blood Urea Nitrogen 20 mg/dL (7-17); CRP 1.5 mg/dL (<1.0); Calcium 8.9 mg/dL (8.4-10.2); Chloride 95 mmol/L (98-107); Estimated CRCL calculation 67 ml/min; Estimated Glomerular Filt Rate 58; Glucose 83 mg/dL (65-110); Potassium 4.8 mmol/L (3.4-5.0); Sodium 139 mmol/L (137-145); Total Protein 7.8 g/dL (6.3-8.2)
[2025-09-21 23:55] LABS: Albumin Level 4.2 g/dL (3.5-5.1)
[2025-09-21 23:59] LABS: Anion Gap 7 mmol/L (4-12); Carbon Dioxide 37 mmol/L (22-30)
[2025-09-22] VITALS (10 sets, daily range): BP systolic 117–177; BP diastolic 55–77; PULSE 89–96; RESP 19–22; TEMP 36–36.4; O2SAT 96–99; BMI 57.6
--- NOTE | 2025-09-22 00:10 | PC.NURSE ---
Multiple attempts for second set of blood cultures unsuccessful. Phlebotomy called.
[2025-09-22 00:13] LABS: Thyroid Stimulating Hormone 11.600 uIU/mL (0.465-4.680)
--- NOTE | 2025-09-22 00:47 | PC.NURSE ---
pt cleaned. pt put on female external catheter
[2025-09-22 01:09] LABS: Add Urine Microscopic? YES; Appearance Urine Cloudy (Clear); Glucose Urine UA Negative (Negative); Leukocyte Esterase Ur 1+ LEU/UL (Negative); Need Manual Microscopic Reviewed; Nitrate Urine Positive (Negative); Specific Grav Ur 1.020 (1.001-1.035)
[2025-09-22] MEDS: cefTRIAXone 1 GM in SODIUM CHLORIDE 0.9% IV 50 ML 100 ML IVPB (02:37)
[2025-09-22 02:39] LABS: Partial Thromboplastin Time 25.2 Seconds (22.3-36.8)
[2025-09-22 02:45] LABS: INR 0.9; Prothrombin Time 12.5 Seconds (11.1-14.7)
[2025-09-22] MEDS: AZITHROMYCIN IV 500 MG in SODIUM CHLORIDE 0.9% IV 250 ML IVPB (04:05)
--- NOTE | 2025-09-22 05:02 | ADMGEN ---
This patient, June Petty, was admitted to [facility] Surg Room 303-01. Patient/family oriented to hospital policies and general routines including ID bracelet, bed and alarms, visiting hours, pain management, procedures, bathroom and other care routines, personal items, smoking policy, room service/diet, and visiting hours. Information on how to activate the Rapid Response Team has been discussed. Patient/Family are encouraged to report perceived risks to care and to ask questions if they do not understand what they are told or what they should do.
--- NOTE | 2025-09-22 06:51 | PM.IMHP ---
H&P: HPI History of Present Illness Date/Time: 09/22/25 06:51 Chief Complaint: Back pain after fall Narrative: And this is a 69-year-old female patient who has a history of chronic respiratory failure and is chronically on oxygen 3 L per nasal cannula at home. She denies having COPD but admits having asthma. The patient stated that her legs have been weak lately and she has been falling often. She is not on any anticoagulations. The patient came to the emergency room via ambulance after sliding down to the floor while walking to the bathroom. She stated she was using the walker if that time. She denies any fever chills nausea vomiting or diarrhea. She lives with her sister who was diagnosed with an aggressive cancer and is not able to take care of the patient. Is reported that the house was extremely filthy with stool and urine all over the place. Abnormal labs her white count was 11.7. Her CRP was 1.5. Her TSH was 11.6 no reflux was performed. Urine was cloudy with 3+ protein, positive nitrate, 1+ leukocyte esterase, wbc's 21-50, and 4+ bacteria. Head CT shows no acute intracranial and hemorrhage or extra-axial fluid collection. Chronic white-matter microangiopathic changes. Chest x-ray was read as bilateral infiltration. Lumbar spine CT was read as no acute fracture or spondylosis. Degenerative changes with disc bulging and disc osteophyte complexes. The patient was started on Rocephin and azithromycin. EKG was read as sinus rhythm. The patient is being admitted to observation status on the date of service of 09/22/2025 Review of Systems Constitutional: Constitutional: Reports as per HPI and Reports no additional constitutional complaints Eyes: Eyes: Reports as per HPI and Reports no additional eye complaints ENT: Reports system reviewed and no additional complaints, except as documented and Reports Normal hearing present Cardiovascular: Cardiovascular: Reports no additional cardiovascular complaints Respiratory: Respiratory: Reports as per HPI and Reports no additional respiratory complaints Gastrointestinal: Gastrointestinal: Reports as per HPI and Reports no additional gastrointestinal complaints Genitourinary: Genitourinary: Reports no additional female genitourinary complaints Musculoskeletal: Musculoskeletal: Reports no additional musculoskeletal complaints Integumentary/Breasts: Skin/Breast: Reports system reviewed and no additional complaints, except as docu Neurologic: Reports system reviewed and no additional complaints, except as documented and Reports Normal hearing present Psychiatric: Psychiatric: Reports no additional psychiatric complaints and Reports as per HPI Hematologic/Lymphatic: Hematologic/Lymphatic: Reports no additional hematologic/lymphatic complaints Allergic/Immunologic: Allergic/Immunologic: Reports no additional allergic/immunologic complaints [facility] Past Medical History Medical History (Updated 09/24/25 @ 07:51 by Jes Moreno MD) Congestive heart failure Chronic respiratory failure Asthma Cardiomyopathy Echo 10/28/2024ummary 1. Complete two-dimensional, color flow and Doppler transthoracic echocardiogram is performed. 2. Left ventricle is normal size and systolic function. There is concentric left ventricular remodeling. The left ventricular ejection fraction is visually estimated to be 60-65%. 3. The right ventricle is normal in size and systolic function. 4. There is no significant valvular disease Obesity Iron deficiency anemia Hypothyroidism Gout Hypertension Surgical History Surgical History (Updated 09/22/25 @ 07:03 by Eve Freitas APRN) History of colon resection Social History Social History (Updated 09/22/25 @ 07:06 by Eve Freitas APRN) Social History: She lives with her sister and is single. She has never been or had any children. Code status: Full code Smoking status: Never smoker Alcohol intake: never Substance use: never Substance use type: does not use Do You Feel Safe in your Home?: Yes Lack of Transportation: No Lack of Food: Never True Current Housing: I Have Housing Concerned About Future Housing: No Difficulty Paying Gas/Electric Bills: No Difficulty Paying for Meds: No Currently Unemployed: No Education: High School Diploma/GED Difficulty w/ Childcare or Family Care: No Spiritual care concerns: No Meds Home Medications and Allergies Home Medications ?Medication ?Instructions ?Recorded ?Confirmed ?Type allopurinol 100 mg tablet 100 mg PO DAILY 10/27/24 09/22/25 History amlodipine 5 mg tablet 5 mg PO DAILY 10/27/24 09/22/25 History atorvastatin 20 mg tablet 20 mg PO DAILY 10/27/24 09/22/25 History ferrous sulfate 325 mg (65 mg 325 mg PO DAILY 10/27/24 09/22/25 History iron) tablet furosemide 40 mg tablet 40 mg PO DAILY 10/27/24 09/22/25 History gabapentin 300 mg capsule 300 mg PO TID 10/27/24 09/22/25 History levothyroxine 137 mcg tablet 137 mcg PO DAILY 10/27/24 09/22/25 History montelukast 10 mg tablet 10 mg PO HS 10/27/24 09/22/25 History Allergies Allergy/AdvReac Type Severity Reaction Status Date / Time No Known Allergies Allergy Verified 09/22/25 05:02 Vital Signs Vital Signs - 24 hr 09/21/25 20:39 09/21/25 20:40 09/21/25 22:43 Temperature 97.7 F Pulse Rate 94 97 92 Respiratory Rate 23 H 24 H 15 Blood Pressure 154/86 H 154/100 H 149/78 H Pulse Oximetry 98 99 96 Oxygen Delivery Nasal Cannula Oxygen Flow Rate 3 09/21/25 23:30 09/22/25 00:15 09/22/25 01:38 Temperature Pulse Rate 91 93 89 Respiratory Rate 18 21 H 20 Blood Pressure 170/66 H 159/77 H 164/69 H Pulse Oximetry 98 98 96 Oxygen Delivery Oxygen Flow Rate 09/22/25 02:59 09/22/25 04:58 09/22/25 06:00 Temperature 97.2 F L Pulse Rate 96 96 90 Respiratory Rate 22 H 22 H 20 Blood Pressure 177/71 H 117/71 132/64 Pulse Oximetry 99 99 98 Oxygen Delivery Oxygen Flow Rate Exam Const: General: cooperative, healthy appearing, comfortable, no acute distress, well developed, awake and Physically active Nutritional Appearance: well nourished Orientation/consciousness: oriented to person, oriented to place and oriented to time HENMT: Head: normal to inspection, No palpable skull fracture present, normocephalic, atraumatic and abrasion Ears: hearing grossly normal bilaterally Eyes: General: appearance normal, both eyes and all related structures Alignment and Position: alignment normal Periorbital: periorbital findings normal Neck: Neck: normal visual inspection, full ROM and no lymphadenopathy Chest: Chest palpation & inspection: normal inspection of the chest Resp: Effort & Inspection: normal respiratory effort Auscultation: abnormal I/E ratio and wheezes scattered wheezes Cardio: Palpation: normal PMI Rate: regular rate Rhythm: regular rhythm Heart sounds: S1 normal heart sound present and S2 normal heart sound present Peripheral pulses: Peripheral pulses 2+ throughout GI: Inspection: normal to inspection Auscultation: normal bowel sounds : General: Yes no CVA tenderness Back/Spine/Pelvis: Thoracic/Lumbar Spine: thoracic and lumbar spine normal to inspection Skin: General skin exam: normal color Lesions: no lesions Rashes: no rashes Trauma: no lacerations or abrasions Wounds: no wounds Hair: normal Nails: normal Other: Lower extremity dry and flaky on a salmon bed Neuro: General: oriented to person, oriented to place, oriented to time and patient oriented x3 Cranial nerves: Yes Equal, round and reactive pupils present and Yes Normal hearing present Cognition (Neuro): normal cognition Speech: normal speech Motor exam (neuro): 5/5 motor strength present throughout Sensory Exam: normal sensation Extrem: General: normal to inspection Right upper extremity: normal to inspection and shoulder/upper arm Left upper extremity: normal to inspection and shoulder/upper arm Right lower extremity: normal to inspection Left lower extremity: normal to inspection Psych: Appearance: grossly normal Mental Status: mental status grossly normal Speech and movement: Normal speech and movement present Affect: normal affect Attitude: cooperative Thought process: Normal thought process present Thought content: Yes Normal thought content present H&P: Results Labs Labs: Short CBC 09/21/25 Range/Units 23:22 WBC 11.7 H (4.5-10.0) K/mm3 Hgb 12.8 (12.0-15.0) g/dL Hct 45.9 (37.0-47.0) % Plt Count 297 (150-375) k/mm3 BMP 09/21/25 23:22 Sodium 139 Potassium 4.8 Chloride 95 L Carbon Dioxide 37 H BUN 20 H Creatinine 0.96 Glucose 83 Calcium 8.9 Liver Function 09/21/25 Range/Units 23:22 Total Bilirubin 0.6 (0.2-1.3) mg/dL AST 24 (14-36) U/L ALT 11 (6-35) U/L Alkaline Phosphatase 102 (38-126) U/L Albumin 4.2 (3.5-5.1) g/dL Urine 09/22/25 Range/Units 00:43 Urine Color Yellow (Yellow) Urine Appearance Cloudy H (Clear) Urine pH 5.0 (5.0-9.0) Ur Specific [place] 1.020 (1.001-1.035) Urine Protein 3+ H (Negative) mg/dL Urine Glucose (UA) Negative (Negative) mg/dL ECG Interpretation: 195 QRSd 87 QT 340 QTc 435 --Jud-- P 22 QRS 10 T 2 SINUS RHYTHM WITH OCCASIONAL VENTRICULAR PREMATURE COMPLEXES INFERIOR MYOCARDIAL INFARCTION , PROBABLY OLD [40+ ms Q WAVE AND/OR ST/T ABNORMALITY IN II/aVF] Compared to ECG 10/27/2024 14:17:01 Ventricular premature complex(es) now present Sinus tachycardia no longer present Myocardial infarct finding Imaging Chest x-ray: Radiologist's impression: Impressions Lumbar Spine CT 09/21/25 21:31 IMPRESSION: No acute fracture or spondylolysis. Degenerative changes with disc bulging and disc osteophyte complexes. All CT scans at this facility are performed using low dose modulation techniques as appropriate to perform exam including the following: automated exposure control; use of iterative reconstruction technique; adjustment of the mA and/or kV according to patient size (this includes techniques or standardized protocols for targeted exams where dose is matched to indication/reason for exam). Chest X-Ray 09/21/25 21:38 IMPRESSION: Bilateral infiltrates. Head CT 09/21/25 22:46 IMPRESSION: No acute intracranial hemorrhage or extra axial fluid collections. Chronic white matter microangiopathic changes. All CT scans at this facility are performed using low dose modulation techniques as appropriate to perform exam including the following: automated exposure control; use of iterative reconstruction technique; adjustment of the mA and/or kV according to patient size (this includes techniques or standardized protocols for targeted exams where dose is matched to indication/reason for exam). Assessment and Plan Assessment and plan (1) Acute UTI: Code(s): N39.0 - Urinary tract infection, site not specified Status: Acute Assessment and Plan: -patient was placed on Rocephin. -blood and urine cultures are pending -the patient has a history of UTIs with E coli which is pansensitive. -patient has mild leukocytosis but is afebrile. White count 11.7 (2) Pneumonia: Code(s): J18.9 - Pneumonia, unspecified organism Status: Acute Assessment and Plan: -the patient was placed on azithromycin and Rocephin. -urine cultures are pending and blood cultures are pending. -p.r.n. albuterol. -the patient denies having COPD but admitted to asthma. She has some wheezing. (3) Chronic respiratory failure: Code(s): J96.10 - Chronic respiratory failure, unspecified whether with hypoxia or hypercapnia Status: Acute Assessment and Plan: -the patient is on oxygen at 3 L per nasal cannula chronically (4) Asthma: Code(s): J45.909 - Unspecified asthma, uncomplicated Status: Acute Assessment and Plan: -p.r.n. albuterol. -continue with Singulair (5) Hypertension: Code(s): I10 - Essential (primary) hypertension Status: Acute Assessment and Plan: -continue with amlodipine and Lasix. (6) Debility: Code(s): R53.81 - Other malaise Status: Acute Assessment and Plan: -the patient had multiple falls at home. The patient stated that her legs are giving out she feels weak. -PT OT evaluation would greatly be appreciated. -care coordination consult with greatly be appreciated. The patient stated that she is open to going to rehab. Quality VTE Prophylaxis VTE prophylaxis: mechanical ordered
[2025-09-22 07:48] LABS: Hematocrit 39.1 % (37.0-47.0); Hemoglobin 11.1 g/dL (12.0-15.0); Mean Corpuscular HGB Conc 28.4 g/dl (32-36); Mean Corpuscular Hemoglobin 28.0 pg (26-34); Mean Corpuscular Volume 98.7 fl (80-100); Platelet Count Result 235 k/mm3 (150-375); Red Blood Count 3.96 M/mm3 (4.2-5.4); White Blood Count 9.1 K/mm3 (4.5-10.0)
[2025-09-22 08:00] LABS: Blood Urea Nitrogen 18 mg/dL (7-17); Calcium 8.3 mg/dL (8.4-10.2); Chloride 97 mmol/L (98-107); Estimated CRCL calculation 70 ml/min; Estimated Glomerular Filt Rate > 60; Glucose 88 mg/dL (65-110); Magnesium 1.6 mg/dL (1.6-2.3); Potassium 4.7 mmol/L (3.4-5.0); Sodium 137 mmol/L (137-145)
--- NOTE | 2025-09-22 08:05 | PM.IMPN ---
Progress Note: A&P Assessment and Plan (1) Acute UTI: Code(s): N39.0 - Urinary tract infection, site not specified Status: Acute Assessment and Plan: -patient was placed on Rocephin. -blood and urine cultures are pending -the patient has a history of UTIs with E coli which is pansensitive. -patient has mild leukocytosis but is afebrile. White count 11.7 -AM labs (2) Pneumonia: Code(s): J18.9 - Pneumonia, unspecified organism Status: Acute Assessment and Plan: -the patient was placed on Paul of the mycin Rocephin. -urine cultures are pending and blood cultures are pending. -p.r.n. albuterol. -the patient denies having COPD but admitted to asthma. -AM labs (3) Chronic respiratory failure: Code(s): J96.10 - Chronic respiratory failure, unspecified whether with hypoxia or hypercapnia Status: Acute Assessment and Plan: -the patient is on oxygen at 3 L per nasal cannula. (4) Asthma: Code(s): J45.909 - Unspecified asthma, uncomplicated Status: Acute Assessment and Plan: -p.r.n. albuterol. -continue with Singulair -no wheezing on exam (5) Hypertension: Code(s): I10 - Essential (primary) hypertension Status: Acute Assessment and Plan: -continue with amlodipine and Lasix. (6) Debility: Code(s): R53.81 - Other malaise Status: Acute Assessment and Plan: -the patient had multiple falls at home. The patient stated that her legs are giving out she feels weak. -PT OT evaluation would greatly be appreciated. -care coronary consult with greatly be appreciated. The patient stated that she is open to going to rehab. -per ED not the patients home is not livable, patient may need LTC placement but says she is going home after rehab Subjective Date/time seen: 09/22/25 08:05 Interval history: Patient seen for a follow up visit. Patient lying in bed, in no acute distress. Patient on IV ceftriaxone for UTI and PNA. PT/OT consulted. Patient open to going to rehab on discharge but reports she wants to return home. Per EMS the home was not livable. Care coordination consult. Review of Systems Review of Systems: All systems reviewed & are unremarkable except as noted in HPI and below Objective Data Vital Signs Vital Signs: Vital Signs - 24 hr 09/21/25 20:39 09/21/25 20:40 09/21/25 22:43 Temperature 97.7 F Pulse Rate 94 97 92 Respiratory Rate 23 H 24 H 15 Blood Pressure 154/86 H 154/100 H 149/78 H Pulse Oximetry 98 99 96 Oxygen Delivery Nasal Cannula Oxygen Flow Rate 3 09/21/25 23:30 09/22/25 00:15 09/22/25 01:38 Temperature Pulse Rate 91 93 89 Respiratory Rate 18 21 H 20 Blood Pressure 170/66 H 159/77 H 164/69 H Pulse Oximetry 98 98 96 Oxygen Delivery Oxygen Flow Rate 09/22/25 02:59 09/22/25 04:58 09/22/25 05:00 Temperature Pulse Rate 96 96 90 Respiratory Rate 22 H 22 H 20 Blood Pressure 177/71 H 117/71 Pulse Oximetry 99 99 98 Oxygen Delivery Nasal Cannula Oxygen Flow Rate 3 09/22/25 06:00 Temperature 97.2 F L Pulse Rate 90 Respiratory Rate 20 Blood Pressure 132/64 Pulse Oximetry 98 Oxygen Delivery Oxygen Flow Rate Intake/Output Intake/Output: Intake & Output 09/19/25 09/20/25 09/21/25 09/22/25 23:59 23:59 23:59 23:59 Intake Total 50 Output Total 200 Balance -150 Meds/Results Medications: Active Medications Generic Name Dose Route Start Last Admin Trade Name Freq PRN Reason Stop Dose Admin Acetaminophen 650 mg 09/22/25 02:59 Acetaminophen 325 Mg Tablet PO Q4H PRN Mild Pain (1-3) or Fever Albuterol 2.5 mg 09/22/25 07:12 Albuterol Sulfate Neb 2.5 Mg/3 Ml Inh INHALATION Q4HRT PRN Shortness Of Breath Allopurinol 100 mg 09/22/25 09:00 Allopurinol 100 Mg Tablet PO DAILY [facility] Amlodipine Besylate 5 mg 09/22/25 09:00 Amlodipine Besylate 5 Mg Tablet PO DAILY [facility] Atorvastatin Calcium 20 mg 09/22/25 09:00 Atorvastatin 20 Mg Tablet PO DAILY [facility] Ferrous Sulfate 325 mg 09/22/25 09:00 Ferrous Sulfate 325 Mg Tablet PO DAILY [facility] Furosemide 40 mg 09/22/25 09:00 Furosemide 40 Mg Tablet PO DAILY [facility] Gabapentin 300 mg 09/22/25 09:00 Gabapentin 300 Mg Capsule PO TID [facility] Ceftriaxone Sodium 1 gm/ 50 mls @ 100 mls/hr 09/23/25 02:00 Sodium Chloride IVPB Q24H YNF Azithromycin 500 mg/ Sodium 250 mls @ 250 mls/hr 09/23/25 04:00 Chloride IVPB 09/26/25 04:59 Q24H [facility] Levothyroxine Sodium 112 mcg/ 137 mcg 09/22/25 08:00 Levothyroxine Sodium 25 mcg PO DAILY@0630 [facility] Montelukast Sodium 10 mg 09/22/25 21:00 Montelukast Sodium 10 Mg Tablet PO HS [facility] Ondansetron HCl 4 mg 09/22/25 02:59 Ondansetron Inj 4 Mg/2 Ml Vial IV PUSH Q4H PRN Nausea Radiology Results: ITS Impressions Lumbar Spine CT 09/21/25 21:31 IMPRESSION: No acute fracture or spondylolysis. Degenerative changes with disc bulging and disc osteophyte complexes. All CT scans at this facility are performed using low dose modulation techniques as appropriate to perform exam including the following: automated exposure control; use of iterative reconstruction technique; adjustment of the mA and/or kV according to patient size (this includes techniques or standardized protocols for targeted exams where dose is matched to indication/reason for exam). Chest X-Ray 09/21/25 21:38 IMPRESSION: Bilateral infiltrates. Head CT 09/21/25 22:46 IMPRESSION: No acute intracranial hemorrhage or extra axial fluid collections. Chronic white matter microangiopathic changes. All CT scans at this facility are performed using low dose modulation techniques as appropriate to perform exam including the following: automated exposure control; use of iterative reconstruction technique; adjustment of the mA and/or kV according to patient size (this includes techniques or standardized protocols for targeted exams where dose is matched to indication/reason for exam). Labs Labs: Laboratory Results - last 24 hr 09/21/25 09/22/25 09/22/25 23:22 00:43 02:22 WBC 11.7 H RBC 4.60 Hgb 12.8 Hct 45.9 MCV 99.8 MCH 27.8 MCHC 27.9 L RDW 14.1 Plt Count 297 MPV 9.1 Immature Gran % (Auto) 0.9 H Neut % (Auto) 83.9 H Lymph % (Auto) 7.2 L [place] % (Auto) 5.6 Eos % (Auto) 2.1 Baso % (Auto) 0.3 Lymph # (Auto) 0.84 L [place] # (Auto) 0.7 H Eos # (Auto) 0.3 Baso # (Auto) 0.0 Abs Immat Gran (auto) 0.11 H Absolute Neuts (auto) 9.8 H Absolute Nucleated RBC 0.000 Nucleated RBC % 0.0 PT 12.5 INR 0.9 APTT 25.2 Sodium 139 Potassium 4.8 Chloride 95 L Carbon Dioxide 37 H Anion Gap 7 BUN 20 H Creatinine 0.96 Estim Creat Clear Calc 67 Estimated GFR 58 L Glucose 83 Lactic Acid 1.5 Calcium 8.9 Magnesium Total Bilirubin 0.6 AST 24 ALT 11 Alkaline Phosphatase 102 C-Reactive Protein 1.5 H Total Protein 7.8 Albumin 4.2 TSH 11.600 H Urine Color Yellow Urine Appearance Cloudy H Urine pH 5.0 Ur Specific [place] 1.020 Urine Protein 3+ H Urine Glucose (UA) Negative Urine Ketones Negative Ur Blood (Man) Trace Urine Nitrate Positive H Urine Bilirubin Negative Urine Urobilinogen 0.2 Add Ur Microanalysis Reviewed Leukocyte Esterase Rfl 1+ H Urine RBC 0-2 Urine WBC 21-50 H Ur Squamous Epith Cells None seen Urine Bacteria 4+ H Urine Casts 6-10 09/22/25 07:41 WBC 9.1 RBC 3.96 L Hgb 11.1 L Hct 39.1 MCV 98.7 MCH 28.0 MCHC 28.4 L RDW 14.2 Plt Count 235 MPV 8.5 Immature Gran % (Auto) Neut % (Auto) Lymph % (Auto) [place] % (Auto) Eos % (Auto) Baso % (Auto) Lymph # (Auto) [place] # (Auto) Eos # (Auto) Baso # (Auto) Abs Immat Gran (auto) Absolute Neuts (auto) Absolute Nucleated RBC Nucleated RBC % PT INR APTT Sodium 137 Potassium 4.7 Chloride 97 L Carbon Dioxide Anion Gap BUN 18 H Creatinine 0.92 Estim Creat Clear Calc 70 Estimated GFR > 60 Glucose 88 Lactic Acid Calcium 8.3 L Magnesium 1.6 Total Bilirubin AST ALT Alkaline Phosphatase C-Reactive Protein Total Protein Albumin TSH Urine Color Urine Appearance Urine pH Ur Specific [place] Urine Protein Urine Glucose (UA) Urine Ketones Ur Blood (Man) Urine Nitrate Urine Bilirubin Urine Urobilinogen Add Ur Microanalysis Leukocyte Esterase Rfl Urine RBC Urine WBC Ur Squamous Epith Cells Urine Bacteria Urine Casts Quality VTE Prophylaxis VTE prophylaxis: mechanical ordered
[2025-09-22 08:26] LABS: Anion Gap 2 mmol/L (4-12); Carbon Dioxide 38 mmol/L (22-30)
[2025-09-22] MEDS: GABAPENTIN 300 MG CAPSULE PO ×3 (08:27→17:04)
[2025-09-22] MEDS: FUROSEMIDE 40 MG TABLET PO (08:28)
[2025-09-22 08:29] LABS: Thyroid Stimulating Hormone Reflex 12.900 uIU/mL (0.465-4.68)
[2025-09-22] MEDS: FERROUS SULFATE 325 MG TABLET PO (08:29)
[2025-09-22] MEDS: ATORVASTATIN 20 MG TABLET PO (08:29)
[2025-09-22] MEDS: ACETAMINOPHEN 325 MG TABLET 650 MG PO ×2 (08:34→19:48)
[2025-09-22 09:50] LABS: Free T4 Free Thyroxine Reflex 0.62 ng/dL (0.78-2.19)
[2025-09-22] MEDS: MONTELUKAST SODIUM 10 MG TABLET PO (20:37)
[2025-09-23] MEDS: cefTRIAXone 1 GM in SODIUM CHLORIDE 0.9% IV 50 ML 100 ML IVPB (02:24)
--- NOTE | 2025-09-23 02:35 | PC.NURSE ---
Daylight Savings Time For Daylight Savings Time Ending in the Fall - Clocks are moved back. For Daylight Savings Time Beginning in the Spring - Clocks are moved ahead. For [facility], the time of change occurs at 0200 hrs. Time is taken from the senior sql server developer. This entry on the patient's chart recognizes the change in time reflected during documentation. Example: 2 entries for vital signs may be charted for 0200 hrs.
[2025-09-23] MEDS: AZITHROMYCIN IV 500 MG in SODIUM CHLORIDE 0.9% IV 250 ML IVPB (04:06)
[2025-09-23 04:30] VITALS: BP 141/63; PULSE 81; RESP 26; TEMP 36.6; O2SAT 99
[2025-09-23 06:21] LABS: Hematocrit 39.4 % (37.0-47.0); Hemoglobin 11.2 g/dL (12.0-15.0); Immature Granulocyte Percent A 0.6 % (0-0.5); Lymphocytes Absolute Auto 1.22 K/mm3 (0.9-3.2); Mean Corpuscular HGB Conc 28.4 g/dl (32-36); Mean Corpuscular Hemoglobin 27.9 pg (26-34); Mean Corpuscular Volume 98.0 fl (80-100); Nucleated Red Blood Cells Absolute Auto 0.000 K/mm3 (0.0-0.012); Nucleated Red Blood Cells Perc 0.0 % (0.0-0.2); Platelet Count Result 265 k/mm3 (150-375); Red Blood Count 4.02 M/mm3 (4.2-5.4); White Blood Count 6.3 K/mm3 (4.5-10.0)
[2025-09-23 07:08] LABS: Alanine Aminotransferase 8 U/L (6-35); Albumin Level 3.0 g/dL (3.5-5.1); Alkaline Phosphatase 77 U/L (38-126); Anion Gap 6 mmol/L (4-12); Aspartate Amino Transferase 17 U/L (14-36); Bilirubin,Total 0.4 mg/dL (0.2-1.3); Blood Urea Nitrogen 16 mg/dL (7-17); Calcium 8.0 mg/dL (8.4-10.2); Carbon Dioxide 38 mmol/L (22-30); Chloride 94 mmol/L (98-107); Estimated CRCL calculation 72 ml/min; Estimated Glomerular Filt Rate > 60; Glucose 78 mg/dL (65-110); Potassium 4.9 mmol/L (3.4-5.0); Sodium 138 mmol/L (137-145); Total Protein 5.6 g/dL (6.3-8.2)
[2025-09-23] MEDS: FERROUS SULFATE 325 MG TABLET PO (08:05)
[2025-09-23] MEDS: ACETAMINOPHEN 325 MG TABLET 650 MG PO ×3 (08:06→22:21)
[2025-09-23] MEDS: FUROSEMIDE 40 MG TABLET PO (08:06)
[2025-09-23] MEDS: GABAPENTIN 300 MG CAPSULE PO ×3 (08:06→17:21)
[2025-09-23] MEDS: ATORVASTATIN 20 MG TABLET PO (08:06)
--- NOTE | 2025-09-23 08:10 | PM.IMPN ---
Progress Note: A&P Assessment and Plan (1) Acute UTI: Code(s): N39.0 - Urinary tract infection, site not specified Status: Acute Assessment and Plan: - UA: cloudy appearance with 3+ protein, positive nitrates, 1+ leukocytes, 21-50 WBC, 4+ bacteria - UC obtained on 09/22: pending - Blood culture obtained on 09/22: pending - previous micro reviewed 10/27/24: ecoli pansensitive - started on Rocephin 09/23 No longer endorsing UTI like symptoms. (2) Pneumonia: Code(s): J18.9 - Pneumonia, unspecified organism Status: Acute Assessment and Plan: CXR: bilateral infiltrates - started on CAP tx: azithromycin ceftriaxone on 09/23 - Consider ordering legionella, mycoplasma and pneumococcal - Remains on baseline 3L NC with stable saturations - Monitor vital signs, I&Os, neuro status and patient is a fall risk - Follow WBC, serum electrolytes, temperature curves and cultures (3) Hypothyroidism: Code(s): E03.9 - Hypothyroidism, unspecified Status: Acute Assessment and Plan: Chronic TSH elevated at 12.9 with low T4 of 0.62 Patient states she does not remember the last time she has taken her synthroid. She denies being unable to afford it. Will continue her synthroid 137 mcg daily and patient will need repeat tsh and t4 in the outpatient setting (4) Debility: Code(s): R53.81 - Other malaise Status: Acute Assessment and Plan: Reports multiple falls at home. The patient stated that her legs are giving out resulting in her falling to the floor and requiring lift assists. She denies any dizziness/lightheadedness prior to falls. - Head CT and lumbar spine ct showing no acute findings - PT OT recommending SNF placement - Care coordination following for possible placement (5) Hypertension: Code(s): I10 - Essential (primary) hypertension Status: Acute Assessment and Plan: Chronic, continue home medications - lasix 40 mg daily and amlodipine 5 mg daily - blood pressures reviewed and stable, continue to monitor (6) COPD (chronic obstructive pulmonary disease): Code(s): J44.9 - Chronic obstructive pulmonary disease, unspecified Status: Acute Assessment and Plan: Chronic, not in acute exacerbation (7) Chronic respiratory failure: Code(s): J96.10 - Chronic respiratory failure, unspecified whether with hypoxia or hypercapnia Status: Acute Assessment and Plan: -the patient is on oxygen at 3 L per nasal cannula. Time Spent With Patient Time with patient: 25 - 35 minutes Subjective Date/time seen: 09/23/25 08:10 Interval history: 69 year old female with past medical history of hypertension, hypothyroidism, copd with chronic respiratory failure on 3L NC baseline, and chf presents to the hospital for weakness and recurrent falls. Patient is pleasant sitting up comfortably in her bed. She continues to endorse shortness of breath that is further exacerbated with activity but states that this is getting closer to her baseline. She denies any associated cough. She notes that her UTI like symptoms have resolved. She has no other complaints denying chest pain, palpitations, nausea /vomiting, abdominal pain. Review of Systems Review of Systems: All systems reviewed & are unremarkable except as noted in HPI and below Exam Narrative: AF HR 81 RR 26 SpO2 99 3L NC baseline BP 141/63 General: female in no acute respiratory distress who is nontoxic appearing, lying semi recumbent in bed. HEENT: Normocephalic. Atraumatic. Extraocular movement intact. Sclera clear and anicteric. No facial asymmetry. Chest: Lungs are clear to auscultation bilaterally. No wheezes or crackles. CV: Heart was regular rate and rhythm. Abd: Abdomen was soft. Nontender. Nondistended. Positive bowel sounds. Ext: Scaling to the bilateral lower extremities. No noted wounds. DP pulses bilaterally. Neuro: Patient is alert and oriented x4. Speech is clear. Objective Data Vital Signs Vital Signs: Vital Signs - 24 hr 09/22/25 09:14 09/22/25 09:54 09/22/25 10:01 Temperature Pulse Rate 92 Respiratory Rate 20 Blood Pressure Pulse Oximetry 96 Oxygen Delivery Nasal Cannula Nasal Cannula Nasal Cannula Oxygen Flow Rate 3 3 2 Fraction of Inspired Oxygen 32 09/22/25 14:00 09/22/25 20:00 09/22/25 20:10 Temperature 97.6 F 96.8 F L Pulse Rate 92 92 92 Respiratory Rate 19 20 20 Blood Pressure 128/55 L 128/72 Pulse Oximetry 98 99 99 Oxygen Delivery Nasal Cannula Oxygen Flow Rate 3 Fraction of Inspired Oxygen 32 09/23/25 04:30 Temperature 97.8 F Pulse Rate 81 Respiratory Rate 26 H Blood Pressure 141/63 H Pulse Oximetry 99 Oxygen Delivery Oxygen Flow Rate Fraction of Inspired Oxygen Intake/Output Intake/Output: Intake & Output 09/20/25 09/21/25 09/22/25 09/23/25 23:59 23:59 23:59 22:59 Intake Total 1400 300 Output Total 200 675 Balance 1200 -375 Meds/Results Medications: Active Medications Generic Name Dose Route Start Last Admin Trade Name Freq PRN Reason Stop Dose Admin Acetaminophen 650 mg 09/22/25 02:59 09/23/25 08:06 Acetaminophen 325 Mg Tablet PO 650 mg Q4H PRN Administration Mild Pain (1-3) or Fever Albuterol 2.5 mg 09/22/25 07:12 Albuterol Sulfate Neb 2.5 Mg/3 Ml Inh INHALATION Q4HRT PRN Shortness Of Breath Allopurinol 100 mg 09/22/25 09:00 09/23/25 08:05 Allopurinol 100 Mg Tablet PO 100 mg DAILY YFN Administration Amlodipine Besylate 5 mg 09/22/25 09:00 09/23/25 08:06 Amlodipine Besylate 5 Mg Tablet PO 5 mg DAILY YFN Administration Atorvastatin Calcium 20 mg 09/22/25 09:00 09/23/25 08:06 Atorvastatin 20 Mg Tablet PO 20 mg DAILY YFN Administration Ferrous Sulfate 325 mg 09/22/25 09:00 09/23/25 08:05 Ferrous Sulfate 325 Mg Tablet PO 325 mg DAILY YFN Administration Furosemide 40 mg 09/22/25 09:00 09/23/25 08:06 Furosemide 40 Mg Tablet PO 40 mg DAILY YFN Administration Gabapentin 300 mg 09/22/25 09:00 09/23/25 08:06 Gabapentin 300 Mg Capsule PO 300 mg TID YFN Administration Ceftriaxone Sodium 1 gm/ 50 mls @ 100 mls/hr 09/23/25 02:00 09/23/25 02:54 Sodium Chloride IVPB Infused Q24H YFN Infusion Azithromycin 500 mg/ Sodium 250 mls @ 250 mls/hr 09/23/25 04:00 09/23/25 05:06 Chloride IVPB 09/26/25 04:59 Infused Q24H YFN Infusion Levothyroxine Sodium 112 mcg/ 137 mcg 09/22/25 08:00 09/23/25 05:48 Levothyroxine Sodium 25 mcg PO 137 mcg DAILY@0630 YFN Administration Montelukast Sodium 10 mg 09/22/25 21:00 09/22/25 20:37 Montelukast Sodium 10 Mg Tablet PO 10 mg HS YFN Administration Ondansetron HCl 4 mg 09/22/25 02:59 Ondansetron Inj 4 Mg/2 Ml Vial IV PUSH Q4H PRN Nausea Radiology Results: ITS Impressions Lumbar Spine CT 09/21/25 21:31 IMPRESSION: No acute fracture or spondylolysis. Degenerative changes with disc bulging and disc osteophyte complexes. All CT scans at this facility are performed using low dose modulation techniques as appropriate to perform exam including the following: automated exposure control; use of iterative reconstruction technique; adjustment of the mA and/or kV according to patient size (this includes techniques or standardized protocols for targeted exams where dose is matched to indication/reason for exam). Chest X-Ray 09/21/25 21:38 IMPRESSION: Bilateral infiltrates. Head CT 09/21/25 22:46 IMPRESSION: No acute intracranial hemorrhage or extra axial fluid collections. Chronic white matter microangiopathic changes. All CT scans at this facility are performed using low dose modulation techniques as appropriate to perform exam including the following: automated exposure control; use of iterative reconstruction technique; adjustment of the mA and/or kV according to patient size (this includes techniques or standardized protocols for targeted exams where dose is matched to indication/reason for exam). Labs Labs: Laboratory Results - last 24 hr 09/22/25 09/23/25 07:41 05:23 WBC 6.3 RBC 4.02 L Hgb 11.2 L Hct 39.4 MCV 98.0 MCH 27.9 MCHC 28.4 L RDW 14.3 Plt Count 265 MPV 9.3 Immature Gran % (Auto) 0.6 H Neut % (Auto) 65.7 Lymph % (Auto) 19.4 [place] % (Auto) 7.8 Eos % (Auto) 6.0 H Baso % (Auto) 0.5 Lymph # (Auto) 1.22 [place] # (Auto) 0.5 Eos # (Auto) 0.4 H Baso # (Auto) 0.0 Abs Immat Gran (auto) 0.04 H Absolute Neuts (auto) 4.1 Absolute Nucleated RBC 0.000 Nucleated RBC % 0.0 Sodium 138 Potassium 4.9 Chloride 94 L Carbon Dioxide 38 H Anion Gap 6 BUN 16 Creatinine 0.89 Estim Creat Clear Calc 72 Estimated GFR > 60 Glucose 78 Calcium 8.0 L Total Bilirubin 0.4 AST 17 ALT 8 Alkaline Phosphatase 77 Total Protein 5.6 L Albumin 3.0 L Free T4 0.62 L Quality VTE Prophylaxis VTE prophylaxis: mechanical ordered and pharmacologic ordered
[2025-09-23 14:00] VITALS: BP 120/59; PULSE 87; RESP 20; TEMP 36; O2SAT 97
[2025-09-23 20:00] VITALS: O2SAT 97
[2025-09-23 22:00] VITALS: BP 143/61; PULSE 86; RESP 20; TEMP 36.4; O2SAT 97
[2025-09-23] MEDS: MONTELUKAST SODIUM 10 MG TABLET PO (22:22)
[2025-09-24] VITALS (7 sets, daily range): BP systolic 113–137; BP diastolic 46–65; PULSE 77–83; RESP 17–20; TEMP 36.3–36.5; O2SAT 97–100
[2025-09-24] MEDS: cefTRIAXone 1 GM in SODIUM CHLORIDE 0.9% IV 50 ML 100 ML IVPB (04:32)
[2025-09-24] MEDS: AZITHROMYCIN IV 500 MG in SODIUM CHLORIDE 0.9% IV 250 ML IVPB (04:33)
[2025-09-24 06:00] LABS: Hematocrit 39.7 % (37.0-47.0); Hemoglobin 11.2 g/dL (12.0-15.0); Mean Corpuscular HGB Conc 28.2 g/dl (32-36); Mean Corpuscular Hemoglobin 27.9 pg (26-34); Mean Corpuscular Volume 98.8 fl (80-100); Platelet Count Result 257 k/mm3 (150-375); Red Blood Count 4.02 M/mm3 (4.2-5.4); White Blood Count 6.8 K/mm3 (4.5-10.0)
[2025-09-24 06:24] LABS: Alanine Aminotransferase 9 U/L (6-35); Albumin Level 3.3 g/dL (3.5-5.1); Alkaline Phosphatase 72 U/L (38-126); Aspartate Amino Transferase 21 U/L (14-36); Bilirubin,Total 0.4 mg/dL (0.2-1.3); Blood Urea Nitrogen 15 mg/dL (7-17); Calcium 8.3 mg/dL (8.4-10.2); Chloride 92 mmol/L (98-107); Estimated CRCL calculation 74 ml/min; Estimated Glomerular Filt Rate > 60; Glucose 83 mg/dL (65-110); Potassium 5.1 mmol/L (3.4-5.0); Sodium 138 mmol/L (137-145); Total Protein 6.3 g/dL (6.3-8.2)
[2025-09-24 06:52] LABS: Carbon Dioxide > 40 mmol/L (22-30)
[2025-09-24] MEDS: FUROSEMIDE 40 MG TABLET PO (08:36)
[2025-09-24] MEDS: GABAPENTIN 300 MG CAPSULE PO ×3 (08:38→16:39)
[2025-09-24] MEDS: ATORVASTATIN 20 MG TABLET PO (08:39)
[2025-09-24] MEDS: FERROUS SULFATE 325 MG TABLET PO (08:40)
[2025-09-24] MEDS: ENOXAPARIN 40 MG/0.4 ML SYRINGE SUB-Q (08:41)
--- NOTE | 2025-09-24 08:58 | PM.IMPN ---
Progress Note: A&P Assessment and Plan (1) Acute UTI: Code(s): N39.0 - Urinary tract infection, site not specified Status: Acute Assessment and Plan: - UA: cloudy appearance with 3+ protein, positive nitrates, 1+ leukocytes, 21-50 WBC, 4+ bacteria - UC obtained on 09/22: gram negative bacilli - Blood culture obtained on 09/22: pending - previous micro reviewed 10/27/24: ecoli pansensitive - started on Rocephin 09/23 Endorsed slight discomfort with urination. Otherwise denies UTI like symptoms. (2) Pneumonia: Code(s): J18.9 - Pneumonia, unspecified organism Status: Acute Assessment and Plan: CXR: bilateral infiltrates - started on CAP tx: IV azithromycin ceftriaxone on 09/23, transitioned to oral azithromycin on 09/24. Continue IV Rocephin pending urine culture. - Consider ordering legionella, mycoplasma and pneumococcal - Remains on baseline 2-3L NC with stable saturations - Monitor vital signs, I&Os, neuro status and patient is a fall risk - Follow WBC, serum electrolytes, temperature curves and cultures Lungs slightly diminished. States feels at baseline shortness of breath given COPD. Continue antibiotics as above. (3) Hypothyroidism: Code(s): E03.9 - Hypothyroidism, unspecified Status: Acute Assessment and Plan: Chronic TSH elevated at 12.9 with low T4 of 0.62 Patient states she does not remember the last time she has taken her synthroid. She denies being unable to afford it. Will continue her synthroid 137 mcg daily and patient will need repeat tsh and t4 in the outpatient setting (4) Debility: Code(s): R53.81 - Other malaise Status: Acute Assessment and Plan: Reports multiple falls at home. The patient stated that her legs are giving out resulting in her falling to the floor and requiring lift assists. She denies any dizziness/lightheadedness prior to falls. - Head CT and lumbar spine ct showing no acute findings - PT OT recommending SNF placement - Care coordination following for possible placement (5) Hypertension: Code(s): I10 - Essential (primary) hypertension Status: Acute Assessment and Plan: Chronic, continue home medications - lasix 40 mg daily and amlodipine 5 mg daily - blood pressures reviewed and stable, continue to monitor (6) COPD (chronic obstructive pulmonary disease): Code(s): J44.9 - Chronic obstructive pulmonary disease, unspecified Status: Acute Assessment and Plan: Chronic, not in acute exacerbation (7) Chronic respiratory failure: Code(s): J96.10 - Chronic respiratory failure, unspecified whether with hypoxia or hypercapnia Status: Acute Assessment and Plan: -the patient is on oxygen at 2-3 L per nasal cannula. Time Spent With Patient Time with patient: 25 - 35 minutes Subjective Date/time seen: 09/24/25 08:58 Interval history: 69 year old female with past medical history of hypertension, hypothyroidism, copd with chronic respiratory failure on 3L NC baseline, and chf presents to the hospital for weakness and recurrent falls. Patient is pleasant sitting up comfortably in her chair with family at bedside. She continues to endorse shortness of breath but states this is at her baseline given her COPD. She has no other complaints denying chest pain, palpitations, nausea/vomiting and abdominal pain. She notes slight discomfort with urination but denies any burning sensation. Review of Systems Review of Systems: All systems reviewed & are unremarkable except as noted in HPI and below Exam Narrative: AF HR 77 RR 18 SPO2 100 2L NC BP 132/64 General: female in no acute respiratory distress who is nontoxic appearing, sitting up in chair HEENT: Normocephalic. Atraumatic. Extraocular movement intact. Sclera clear and anicteric. No facial asymmetry. Chest: Lungs are slightly diminished to auscultation bilaterally. No wheezes or crackles. CV: Heart was regular rate and rhythm. Abd: Abdomen was soft. Nontender. Nondistended. Positive bowel sounds. Ext: Scaling to the bilateral lower extremities. No noted wounds. DP pulses bilaterally. Neuro: Patient is alert. Speech is clear. Objective Data Vital Signs Vital Signs: Vital Signs - 24 hr 09/23/25 14:00 09/23/25 20:00 09/23/25 22:00 Temperature 96.8 F L 97.5 F L Pulse Rate 87 86 Respiratory Rate 20 20 Blood Pressure 120/59 L 143/61 H Pulse Oximetry 97 97 97 Oxygen Delivery Nasal Cannula Oxygen Flow Rate 3 09/24/25 05:18 09/24/25 08:00 09/24/25 08:27 Temperature 97.7 F 97.7 F Pulse Rate 80 77 Respiratory Rate 20 18 Blood Pressure 113/61 132/64 Pulse Oximetry 98 98 100 Oxygen Delivery Nasal Cannula Oxygen Flow Rate 2 Intake/Output Intake/Output: Intake & Output 09/21/25 09/22/25 09/23/25 09/24/25 23:59 23:59 22:59 23:59 Intake Total 1400 1520 640 Output Total 200 2675 200 Balance 1200 -1155 440 Meds/Results Medications: Active Medications Generic Name Dose Route Start Last Admin Trade Name Freq PRN Reason Stop Dose Admin Acetaminophen 650 mg 09/22/25 02:59 09/23/25 22:21 Acetaminophen 325 Mg Tablet PO 650 mg Q4H PRN Administration Mild Pain (1-3) or Fever Albuterol 2.5 mg 09/22/25 07:12 Albuterol Sulfate Neb 2.5 Mg/3 Ml Inh INHALATION Q4HRT PRN Shortness Of Breath Allopurinol 100 mg 09/22/25 09:00 09/24/25 08:38 Allopurinol 100 Mg Tablet PO 100 mg DAILY YFN Administration Amlodipine Besylate 5 mg 09/22/25 09:00 09/24/25 08:37 Amlodipine Besylate 5 Mg Tablet PO 5 mg DAILY YFN Administration Atorvastatin Calcium 20 mg 09/22/25 09:00 09/24/25 08:39 Atorvastatin 20 Mg Tablet PO 20 mg DAILY YFN Administration Enoxaparin Sodium 40 mg 09/24/25 09:00 09/24/25 08:41 Enoxaparin 40 Mg/0.4 Ml Syringe SUB-Q 40 mg DAILY YFN Administration Ferrous Sulfate 325 mg 09/22/25 09:00 09/24/25 08:40 Ferrous Sulfate 325 Mg Tablet PO 325 mg DAILY YFN Administration Furosemide 40 mg 09/22/25 09:00 09/24/25 08:36 Furosemide 40 Mg Tablet PO 40 mg DAILY YFN Administration Gabapentin 300 mg 09/22/25 09:00 09/24/25 08:38 Gabapentin 300 Mg Capsule PO 300 mg TID YFN Administration Ceftriaxone Sodium 1 gm/ 50 mls @ 100 mls/hr 09/23/25 02:00 09/24/25 04:32 Sodium Chloride IVPB 100 mls/hr Q24H YFN Administration Azithromycin 500 mg/ Sodium 250 mls @ 250 mls/hr 09/23/25 04:00 09/24/25 04:33 Chloride IVPB 09/26/25 04:59 250 mls/hr Q24H YFN Administration Levothyroxine Sodium 112 mcg/ 137 mcg 09/22/25 08:00 09/24/25 06:29 Levothyroxine Sodium 25 mcg PO 137 mcg DAILY@0630 YFN Administration Montelukast Sodium 10 mg 09/22/25 21:00 09/23/25 22:22 Montelukast Sodium 10 Mg Tablet PO 10 mg HS YFN Administration Ondansetron HCl 4 mg 09/22/25 02:59 Ondansetron Inj 4 Mg/2 Ml Vial IV PUSH Q4H PRN Nausea Radiology Results: ITS Impressions Lumbar Spine CT 09/21/25 21:31 IMPRESSION: No acute fracture or spondylolysis. Degenerative changes with disc bulging and disc osteophyte complexes. All CT scans at this facility are performed using low dose modulation techniques as appropriate to perform exam including the following: automated exposure control; use of iterative reconstruction technique; adjustment of the mA and/or kV according to patient size (this includes techniques or standardized protocols for targeted exams where dose is matched to indication/reason for exam). Chest X-Ray 09/21/25 21:38 IMPRESSION: Bilateral infiltrates. Head CT 09/21/25 22:46 IMPRESSION: No acute intracranial hemorrhage or extra axial fluid collections. Chronic white matter microangiopathic changes. All CT scans at this facility are performed using low dose modulation techniques as appropriate to perform exam including the following: automated exposure control; use of iterative reconstruction technique; adjustment of the mA and/or kV according to patient size (this includes techniques or standardized protocols for targeted exams where dose is matched to indication/reason for exam). Labs Labs: Laboratory Results - last 24 hr 09/24/25 05:48 WBC 6.8 RBC 4.02 L Hgb 11.2 L Hct 39.7 MCV 98.8 MCH 27.9 MCHC 28.2 L RDW 14.2 Plt Count 257 MPV 8.9 Sodium 138 Potassium 5.1 H Chloride 92 L Carbon Dioxide > 40 H Anion Gap BUN 15 Creatinine 0.86 Estim Creat Clear Calc 74 Estimated GFR > 60 Glucose 83 Calcium 8.3 L Total Bilirubin 0.4 AST 21 ALT 9 Alkaline Phosphatase 72 Total Protein 6.3 Albumin 3.3 L Quality VTE Prophylaxis VTE prophylaxis: mechanical ordered and pharmacologic ordered
--- NOTE | 2025-09-24 10:07 | PC.NURSE ---
On 09/24/25, the student, [Nivia Skinner ], provided care and completed [facility] documentation on this patient. I have reviewed the student's documentation and agree with the findings.
--- NOTE | 2025-09-24 10:07 | PC.NURSE ---
On 09/24/25, the student, [Bria Jackson ], provided care and completed [facility] documentation on this patient. I have reviewed the student's documentation and agree with the findings.
--- NOTE | 2025-09-24 11:01 | P.CDI_ITS ---
CDI Query Clarification Request Patient with a BMI of 57.7 please provide a diagnosis to accompany this finding: * Overweight * Obesity * Morbid Obesity * Other/Unknown <Yolanda Yu RN - Last Filed: 09/24/25 11:02> Clarified Diagnosis Clarified Diagnosis: Morbid obesity <Maria M Cristobal PA-C - Last Filed: 09/24/25 12:34>
[2025-09-24] MEDS: ACETAMINOPHEN 325 MG TABLET 650 MG PO ×2 (12:16→21:38)
[2025-09-24] MEDS: LACTIC ACID 12% LOTION 225 BTL 1 APPLIC TOPICAL (12:48)
[2025-09-24] MEDS: MONTELUKAST SODIUM 10 MG TABLET PO (21:36)
[2025-09-25] MEDS: cefTRIAXone 1 GM in SODIUM CHLORIDE 0.9% IV 50 ML 100 ML IVPB (01:48)
[2025-09-25 05:03] VITALS: BP 123/60; PULSE 90; RESP 20; TEMP 36; O2SAT 98
[2025-09-25 05:42] LABS: Hematocrit 41.2 % (37.0-47.0); Hemoglobin 11.9 g/dL (12.0-15.0); Mean Corpuscular HGB Conc 28.9 g/dl (32-36); Mean Corpuscular Hemoglobin 28.3 pg (26-34); Mean Corpuscular Volume 97.9 fl (80-100); Platelet Count Result 251 k/mm3 (150-375); Red Blood Count 4.21 M/mm3 (4.2-5.4); White Blood Count 7.1 K/mm3 (4.5-10.0)
[2025-09-25 06:11] LABS: Alanine Aminotransferase 9 U/L (6-35); Albumin Level 3.6 g/dL (3.5-5.1); Alkaline Phosphatase 66 U/L (38-126); Aspartate Amino Transferase 21 U/L (14-36); Bilirubin,Total 0.4 mg/dL (0.2-1.3); Blood Urea Nitrogen 18 mg/dL (7-17); Calcium 7.9 mg/dL (8.4-10.2); Carbon Dioxide > 40 mmol/L (22-30); Chloride 93 mmol/L (98-107); Estimated CRCL calculation 71 ml/min; Estimated Glomerular Filt Rate > 60; Glucose 79 mg/dL (65-110); Potassium 4.9 mmol/L (3.4-5.0); Sodium 136 mmol/L (137-145); Total Protein 6.5 g/dL (6.3-8.2)
[2025-09-25 08:00] VITALS: O2SAT 98
--- NOTE | 2025-09-25 08:02 | PM.IMPN ---
Progress Note: A&P Assessment and Plan (1) Acute UTI: Code(s): N39.0 - Urinary tract infection, site not specified Status: Acute Assessment and Plan: - UA: cloudy appearance with 3+ protein, positive nitrates, 1+ leukocytes, 21-50 WBC, 4+ bacteria - UC obtained on 09/22: Ecoli with significant resistance, see report - Blood culture obtained on 09/22: pending - previous micro reviewed 10/27/24: ecoli pansensitive - started on Rocephin 09/23, transitioned to Macrobid on 09/25 after discussing with [facility] pharmacy Denies any UTI like symptoms at this time. (2) Pneumonia: Code(s): J18.9 - Pneumonia, unspecified organism Status: Acute Assessment and Plan: CXR: bilateral infiltrates - started on CAP tx: IV azithromycin ceftriaxone on 09/23, transitioned to oral azithromycin on 09/24. Transitioned to Augmentin on 09/25, Rocephin DC. - Consider ordering legionella, mycoplasma and pneumococcal - Remains on baseline 2-3L NC with stable saturations - Monitor vital signs, I&Os, neuro status and patient is a fall risk - Follow WBC, serum electrolytes, temperature curves and cultures Denies shortness of breath. Oxygen saturations stable on home O2. Continue antibiotics as above. (3) Hypothyroidism: Code(s): E03.9 - Hypothyroidism, unspecified Status: Acute Assessment and Plan: Chronic TSH elevated at 12.9 with low T4 of 0.62 Patient states she does not remember the last time she has taken her synthroid. She denies being unable to afford it. Will continue her synthroid 137 mcg daily and patient will need repeat tsh and t4 in the outpatient setting (4) Debility: Code(s): R53.81 - Other malaise Status: Acute Assessment and Plan: Reports multiple falls at home. The patient stated that her legs are giving out resulting in her falling to the floor and requiring lift assists. She denies any dizziness/lightheadedness prior to falls. - Head CT and lumbar spine ct showing no acute findings - PT OT recommending SNF placement - Care coordination following for placement (5) Hypertension: Code(s): I10 - Essential (primary) hypertension Status: Acute Assessment and Plan: Chronic, continue home medications - lasix 40 mg daily and amlodipine 5 mg daily - blood pressures reviewed and stable, continue to monitor (6) COPD (chronic obstructive pulmonary disease): Code(s): J44.9 - Chronic obstructive pulmonary disease, unspecified Status: Acute Assessment and Plan: Chronic, not in acute exacerbation (7) Chronic respiratory failure: Code(s): J96.10 - Chronic respiratory failure, unspecified whether with hypoxia or hypercapnia Status: Acute Assessment and Plan: -the patient is on oxygen at 2-3 L per nasal cannula. Time Spent With Patient Time with patient: 25 - 35 minutes Subjective Date/time seen: 09/25/25 08:02 Interval history: 69 year old female with past medical history of hypertension, hypothyroidism, copd with chronic respiratory failure on 3L NC baseline, and chf presents to the hospital for weakness and recurrent falls. Patient is pleasant sitting comfortably in her chair. She has not had movement but is passing flatus. She denies any associated nausea / vomiting or abdominal pain and is tolerating her diet well. Started on a bowel regimen. She has no other complaints denying chest pain, shortness a breath, palpitations, and any UTI like symptoms including dysuria/ burning sensation with urination. Review of Systems Review of Systems: All systems reviewed & are unremarkable except as noted in HPI and below Exam Narrative: AF HR 90 RR 20 SPO2 98 3L NC (baseline) BP 123/60 General: female in no acute respiratory distress who is nontoxic appearing, sitting up in chair HEENT: Normocephalic. Atraumatic. Extraocular movement intact. Sclera clear and anicteric. No facial asymmetry. Chest: Lungs are slightly diminished to auscultation bilaterally. No wheezes or crackles. CV: Heart was regular rate and rhythm. Abd: Abdomen was soft. Nontender. Nondistended. Positive bowel sounds. Ext: Scaling to the bilateral lower extremities. No noted wounds. DP pulses bilaterally. Neuro: Patient is alert. Speech is clear. Objective Data Vital Signs Vital Signs: Vital Signs - 24 hr 09/24/25 08:27 09/24/25 13:59 09/24/25 19:46 Temperature 97.7 F 97.7 F Pulse Rate 77 83 Respiratory Rate 18 17 Blood Pressure 132/64 137/46 L Pulse Oximetry 100 99 97 Oxygen Delivery Nasal Cannula Oxygen Flow Rate 3 Fraction of Inspired Oxygen 32 09/24/25 20:00 09/24/25 20:44 09/25/25 05:03 Temperature 97.4 F L 96.8 F L Pulse Rate 78 90 Respiratory Rate 20 20 Blood Pressure 124/65 123/60 Pulse Oximetry 99 99 98 Oxygen Delivery Nasal Cannula Oxygen Flow Rate 3 Fraction of Inspired Oxygen Intake/Output Intake/Output: Intake & Output 09/22/25 09/23/25 09/24/25 09/25/25 23:59 22:59 23:59 23:59 Intake Total 1400 1520 1410 360 Output Total 200 2675 1750 250 Balance 1200 -1155 -340 110 Meds/Results Medications: Active Medications Generic Name Dose Route Start Last Admin Trade Name Freq PRN Reason Stop Dose Admin Acetaminophen 650 mg 09/22/25 02:59 09/24/25 21:38 Acetaminophen 325 Mg Tablet PO 650 mg Q4H PRN Administration Mild Pain (1-3) or Fever Albuterol 2.5 mg 09/22/25 07:12 Albuterol Sulfate Neb 2.5 Mg/3 Ml Inh INHALATION Q4HRT PRN Shortness Of Breath Allopurinol 100 mg 09/22/25 09:00 09/24/25 08:38 Allopurinol 100 Mg Tablet PO 100 mg DAILY YFN Administration Amlodipine Besylate 5 mg 09/22/25 09:00 09/24/25 08:37 Amlodipine Besylate 5 Mg Tablet PO 5 mg DAILY YFN Administration Atorvastatin Calcium 20 mg 09/22/25 09:00 09/24/25 08:39 Atorvastatin 20 Mg Tablet PO 20 mg DAILY YFN Administration Azithromycin 500 mg 09/25/25 09:00 Azithromycin 500 Mg Tablet PO 09/27/25 08:59 DAILY YFN Enoxaparin Sodium 40 mg 09/24/25 09:00 09/24/25 08:41 Enoxaparin 40 Mg/0.4 Ml Syringe SUB-Q 40 mg DAILY YFN Administration Ferrous Sulfate 325 mg 09/22/25 09:00 09/24/25 08:40 Ferrous Sulfate 325 Mg Tablet PO 325 mg DAILY YFN Administration Furosemide 40 mg 09/22/25 09:00 09/24/25 08:36 Furosemide 40 Mg Tablet PO 40 mg DAILY YFN Administration Gabapentin 300 mg 09/22/25 09:00 09/24/25 16:39 Gabapentin 300 Mg Capsule PO 300 mg TID YFN Administration Ceftriaxone Sodium 1 gm/ 50 mls @ 100 mls/hr 09/23/25 02:00 09/25/25 01:48 Sodium Chloride IVPB 100 mls/hr Q24H YFN Administration Lactic Acid 1 applic 09/24/25 09:00 09/24/25 12:48 Lactic Acid 12% Lotion 225 Btl TOPICAL 1 applic QAM YFN Administration Levothyroxine Sodium 112 mcg/ 137 mcg 09/22/25 08:00 09/25/25 05:32 Levothyroxine Sodium 25 mcg PO 137 mcg DAILY@0630 YFN Administration Montelukast Sodium 10 mg 09/22/25 21:00 09/24/25 21:36 Montelukast Sodium 10 Mg Tablet PO 10 mg HS YFN Administration Ondansetron HCl 4 mg 09/22/25 02:59 Ondansetron Inj 4 Mg/2 Ml Vial IV PUSH Q4H PRN Nausea Radiology Results: ITS Impressions Lumbar Spine CT 09/21/25 21:31 IMPRESSION: No acute fracture or spondylolysis. Degenerative changes with disc bulging and disc osteophyte complexes. All CT scans at this facility are performed using low dose modulation techniques as appropriate to perform exam including the following: automated exposure control; use of iterative reconstruction technique; adjustment of the mA and/or kV according to patient size (this includes techniques or standardized protocols for targeted exams where dose is matched to indication/reason for exam). Chest X-Ray 09/21/25 21:38 IMPRESSION: Bilateral infiltrates. Head CT 09/21/25 22:46 IMPRESSION: No acute intracranial hemorrhage or extra axial fluid collections. Chronic white matter microangiopathic changes. All CT scans at this facility are performed using low dose modulation techniques as appropriate to perform exam including the following: automated exposure control; use of iterative reconstruction technique; adjustment of the mA and/or kV according to patient size (this includes techniques or standardized protocols for targeted exams where dose is matched to indication/reason for exam). Labs Labs: Laboratory Results - last 24 hr 09/25/25 05:18 WBC 7.1 RBC 4.21 Hgb 11.9 L Hct 41.2 MCV 97.9 MCH 28.3 MCHC 28.9 L RDW 14.5 Plt Count 251 MPV 9.1 Sodium 136 L Potassium 4.9 Chloride 93 L Carbon Dioxide > 40 H Anion Gap BUN 18 H Creatinine 0.91 Estim Creat Clear Calc 71 Estimated GFR > 60 Glucose 79 Calcium 7.9 L Total Bilirubin 0.4 AST 21 ALT 9 Alkaline Phosphatase 66 Total Protein 6.5 Albumin 3.6 Quality VTE Prophylaxis VTE prophylaxis: mechanical ordered and pharmacologic ordered
[2025-09-25 08:05] VITALS: O2SAT 97
[2025-09-25] MEDS: GABAPENTIN 300 MG CAPSULE PO ×3 (08:35→16:40)
[2025-09-25] MEDS: AZITHROMYCIN 500 MG TABLET PO (08:35)
[2025-09-25] MEDS: ENOXAPARIN 40 MG/0.4 ML SYRINGE SUB-Q (08:35)
[2025-09-25] MEDS: FERROUS SULFATE 325 MG TABLET PO (08:35)
[2025-09-25] MEDS: ATORVASTATIN 20 MG TABLET PO (08:35)
[2025-09-25] MEDS: FUROSEMIDE 40 MG TABLET PO (08:35)
[2025-09-25] MEDS: LACTIC ACID 12% LOTION 225 BTL 1 APPLIC TOPICAL (08:36)
[2025-09-25] MEDS: NITROFURANTOIN MONOHYD MACROCR 100 MG CAP PO ×2 (08:36→21:43)
[2025-09-25 14:00] VITALS: BP 115/47; PULSE 83; RESP 22; TEMP 36.2; O2SAT 98
[2025-09-25] MEDS: ACETAMINOPHEN 325 MG TABLET 650 MG PO (18:14)
[2025-09-25 20:00] VITALS: PULSE 86; RESP 16; O2SAT 98
[2025-09-25 20:13] VITALS: BP 132/56; PULSE 86; RESP 16; TEMP 36.1; O2SAT 98
[2025-09-25] MEDS: SENNA/DOCUSATE SODIUM TABLET 1 TAB PO (21:44)
[2025-09-25] MEDS: MONTELUKAST SODIUM 10 MG TABLET PO (21:44)
[2025-09-26 05:55] LABS: Hematocrit 41.4 % (37.0-47.0); Hemoglobin 11.5 g/dL (12.0-15.0); Mean Corpuscular HGB Conc 27.8 g/dl (32-36); Mean Corpuscular Hemoglobin 27.8 pg (26-34); Mean Corpuscular Volume 100.2 fl (80-100); Platelet Count Result 234 k/mm3 (150-375); Red Blood Count 4.13 M/mm3 (4.2-5.4); White Blood Count 7.2 K/mm3 (4.5-10.0)
[2025-09-26 06:00] VITALS: BP 133/54; PULSE 80; RESP 18; TEMP 36.2; O2SAT 100
[2025-09-26 06:19] LABS: Alanine Aminotransferase 9 U/L (6-35); Albumin Level 3.4 g/dL (3.5-5.1); Alkaline Phosphatase 72 U/L (38-126); Aspartate Amino Transferase 21 U/L (14-36); Bilirubin,Total 0.3 mg/dL (0.2-1.3); Blood Urea Nitrogen 20 mg/dL (7-17); Calcium 7.9 mg/dL (8.4-10.2); Chloride 92 mmol/L (98-107); Estimated CRCL calculation 63 ml/min; Estimated Glomerular Filt Rate 53; Glucose 81 mg/dL (65-110); Potassium 4.7 mmol/L (3.4-5.0); Sodium 136 mmol/L (137-145); Total Protein 6.2 g/dL (6.3-8.2)
[2025-09-26 06:46] LABS: Carbon Dioxide > 40 mmol/L (22-30)
[2025-09-26 08:00] VITALS: O2SAT 93
[2025-09-26] MEDS: FUROSEMIDE 40 MG TABLET PO (08:20)
[2025-09-26] MEDS: AZITHROMYCIN 500 MG TABLET PO (08:20)
[2025-09-26] MEDS: ENOXAPARIN 40 MG/0.4 ML SYRINGE SUB-Q (08:20)
[2025-09-26] MEDS: GABAPENTIN 300 MG CAPSULE PO ×2 (08:20→13:25)
[2025-09-26] MEDS: ATORVASTATIN 20 MG TABLET PO (08:20)
[2025-09-26] MEDS: NITROFURANTOIN MONOHYD MACROCR 100 MG CAP PO (08:20)
[2025-09-26] MEDS: FERROUS SULFATE 325 MG TABLET PO (08:20)
[2025-09-26] MEDS: LACTIC ACID 12% LOTION 225 BTL 1 APPLIC TOPICAL (08:22)
[2025-09-26 08:59] VITALS: PULSE 87; O2SAT 93
[2025-09-26] MEDS: ACETAMINOPHEN 325 MG TABLET 650 MG PO (12:40)
[2025-09-26 14:00] VITALS: BP 119/55; PULSE 78; RESP 18; TEMP 36.3; O2SAT 99
--- NOTE | 2025-09-26 15:45 | PM.DS ---
DS: Admitting Diagnosis Discharge Date 09/26/2025 Admitting Diagnosis Weakness and recurrent falls DS: Discharge Diagnosis Discharge Diagnosis (1) Congestive heart failure: Code(s): I50.9 - Heart failure, unspecified Status: Acute (2) Hypertension: Code(s): I10 - Essential (primary) hypertension Status: Acute (3) Acute UTI: Code(s): N39.0 - Urinary tract infection, site not specified Status: Acute (4) Debility: Code(s): R53.81 - Other malaise Status: Acute (5) Recurrent falls: Code(s): R29.6 - Repeated falls Status: Acute (6) Pneumonia: Code(s): J18.9 - Pneumonia, unspecified organism Status: Acute Plan 69-year-old female with multiple comorbidities presents with weakness and recurrent falls. She has been improving with therapy. Discharged in stable condition on 09/26/2025 to intermediate facility. Repeat BMP in 2 days to monitor kidney function on Lasix. At this time appears euvolemic. All of her questions and concerns were answered to satisfaction. The patient was full code during admission. Discharge with Macrobid for UTI, Augmentin to finish course for pneumonia. Also received azithromycin for 3 days. DS: Summary Hospital Course Hospital Course: 69-year-old female with multiple comorbidities presents with weakness and recurrent falls. She has been improving with therapy. Discharged in stable condition on 09/26/2025 to intermediate facility. Repeat BMP in 2 days to monitor kidney function on Lasix. At this time appears euvolemic. All of her questions and concerns were answered to satisfaction. The patient was full code during admission. Discharge with Macrobid for UTI, Augmentin to finish course for pneumonia. Also received azithromycin for 3 days. Time Spent with Patient Time attestation: Total time spent providing and/or coordinating discharge services: Time spent: Greater than 30 minutes Exam Const: General: comfortable and no acute distress Eyes: Pupils: Equal, round and reactive pupils present Neck: Neck: supple Resp: Effort & Inspection: normal respiratory effort Auscultation: clear to auscultation bilaterally Cardio: Rate: regular rate Rhythm: regular rhythm GI: Inspection: non-distended GI Palp: Yes Soft to palpation Neuro: Motor exam (neuro): 5/5 motor strength present throughout Extrem: Other: No edema. Lipodermatosclerosis with large skin folding DS: Data Data Completed and Pending Labs on day of discharge: Labs from last 24 hours 09/26/25 05:44 WBC 7.2 RBC 4.13 L Hgb 11.5 L Hct 41.4 MCV 100.2 H MCH 27.8 MCHC 27.8 L RDW 13.9 Plt Count 234 MPV 9.3 Sodium 136 L Potassium 4.7 Chloride 92 L Carbon Dioxide > 40 H Anion Gap BUN 20 H Creatinine 1.03 H Estim Creat Clear Calc 63 Estimated GFR 53 L Glucose 81 Calcium 7.9 L Total Bilirubin 0.3 AST 21 ALT 9 Alkaline Phosphatase 72 Total Protein 6.2 L Albumin 3.4 L Preliminary micro results at discharge 09/21/25 23:22 Blood Culture - Preliminary Blood 09/22/25 02:22 Blood Culture - Preliminary Blood Discharge Plan Discharge Attending physician on discharge: Marina Marquez Consulting providers: Maria M Cristobal Discharging Clinician: Marina Marquez Patient Disposition: SNF Activity: march shower Diet: as tolerated Patient Language: Romansh Stand Alone Forms: General Discharge Information Discharge Medications: New nitrofurantoin monohyd/m-cryst [Macrobid] 100 mg Capsule 100 mg PO Q12HR Qty: 7 0RF sennosides-docusate sodium [Senokot-S] 8.6-50 mg Tablet 1 tablet PO HS Qty: 30 0RF amoxicillin-pot clavulanate 875-125 mg tablet 1 tablet PO Q12H Qty: 4 0RF Continued furosemide 40 mg tablet 40 mg PO DAILY levothyroxine 137 mcg tablet 137 mcg PO DAILY atorvastatin 20 mg tablet 20 mg PO DAILY allopurinol 100 mg tablet 100 mg PO DAILY ferrous sulfate 325 mg (65 mg iron) tablet 325 mg PO DAILY gabapentin 300 mg capsule 300 mg PO TID montelukast 10 mg tablet 10 mg PO HS Discontinued amlodipine 5 mg tablet 5 mg PO DAILY Other Ambulatory Orders: Basic Metabolic Panel (Routine) Timeframe: 2 Days Location: Determined by Patient Ordered By: Marina Marquez Date of admission: 09/23/25 14:58 Primary Care Provider: ReidHelen Admitting Provider: Oscar Castro Attending physician on admission: Castro,Oscar Condition: Stable Hospitalist MIPS Heart Failure (Exclusion) Patient has history of Heart Transplant or Left Ventricular Assistive Device?: No IF YES, STOP HERE Heart Failure (Qualifier) Patient has current or prior documentation of LVEF less than or equal to 40%, or mod/servere depressed LVSF?: No IF NO, STOP HERE
== END 2025-09-26 17:03 | DRG 689 ==
LOC: ANHED 20:46 → ANH3MEDSUR 09-22 03:54
PROVIDERS: Nurse Practitioner; Nurse Practitioner Adult Health; Student in an Organized Health Care Education/Training Program; Admitting Provider Internal Medicine; Emergency Provider Emergency Medicine; PCP Student in an Organized Health Care Education/Training Program; Visit Provider General Practice
DX: N39.0 Urinary tract infection, site not specified (principal); J18.9 Pneumonia, unspecified organism; Z68.43 Body mass index [BMI] 50.0-59.9, adult; J96.10 Chronic respiratory failure, unspecified whether with hypoxia or hypercapnia; B96.20 Unspecified Escherichia coli [E. coli] as the cause of diseases classified elsewhere; E66.01 Morbid (severe) obesity due to excess calories; D50.9 Iron deficiency anemia, unspecified; E03.9 Hypothyroidism, unspecified; I11.0 Hypertensive heart disease with heart failure; I50.9 Heart failure, unspecified; J45.909 Unspecified asthma, uncomplicated; M10.9 Gout, unspecified; R29.6 Repeated falls; Z99.81 Dependence on supplemental oxygen
CPT/HCPCS: 36415; 70450; 71045; 72131; 80048; 80053; 81001; 83605; 83735; 84439; 84443; 85025; 85027; 85610; 85730; 86140; 87040; 87086; 87186; 87449; 93005; 96365; 97110; 97161; 97165; 97530; 97535; 99285; A9270; G0378; J0456; J0696; J1650; J7050

== ENCOUNTER 2025-10-28 17:57 | Inpatient (IN) | payer MEDICARE, SELFPAY ==
[2025-10-28] VITALS (19 sets, daily range): BP systolic 137–200; BP diastolic 55–187; PULSE 82–97; RESP 14–36; TEMP 36.6; O2SAT 96–100
--- NOTE | ~2025-10-28 | XR_ITS ---
EXAMINATION: XR chest 1V portable COMPARISON: No comparisons available. HISTORY: cough/DARRICK, BEST IMAGES OBTAINABLE DUE TO PT CONDITION FINDINGS: Mild pulmonary venous congestion. No pneumothorax. Mild cardiomegaly. Mediastinal and hilar contours are within normal limits. Bony thorax no acute abnormality. Miscellaneous: None Impression: CHF Reviewed, dictated and finalized at location P. LFISH FARMING SUPERVISOR Impression: CHF
--- NOTE | ~2025-10-28 | CT_ITS ---
EXAMINATION: CTA chest PE protocol DATE: 10/28/2025 23:32 INDICATION: Hypoxia. Hypercapnia. TECHNIQUE: Computed tomography angiography (CTA) of the chest was performed with 100 mL Omnipaque-350 intravenous contrast timed to evaluate the pulmonary arteries. Coronal maximum intensity projection 3D-reconstructions were created by the technologist. Automated exposure control and iterative reconstruction technique were employed. The dose-length product was 914.47 mGy-cm. COMPARISON: None. FINDINGS: The lungs demonstrate mild atelectasis. There is septal thickening, consistent mild pulmonary edema. Calcified left lung nodules and calcified left hilar and mediastinal lymph nodes are consistent with old granulomatous disease. No pleural effusion. Cardiomegaly is noted. No pericardial effusion. The central pulmonary arteries are enlarged, consistent with pulmonary arterial hypertension. There is no pulmonary embolus. There is a gallstone in the gallbladder, which is normal in size. Calcifications in the spleen are consistent with old granulomatous disease. There is severe thoracic spondylosis. IMPRESSION: 1. No pulmonary embolus. 2. Mild pulmonary edema. Reviewed, dictated and finalized at location E. LIFT OPERATOR
--- NOTE | 2025-10-28 18:08 | ECG_ITS ---
Test Date: 2025-10-28 18:27:02 Measurements Intervals Disney Rate: 95 P: 43 AR: 216 QRS: 60 QRSD: 97 T: 18 QT: 336 QTc: 423 Interpretive Statements SINUS RHYTHM WITH FIRST DEGREE AV BLOCK WITH OCCASIONAL VENTRICULAR PREMATURE COMPLEXES CONSIDER INFERIOR INFARCT, AGE INDETERMINATE BASELINE ARTIFACT- I, II, III, AVR, AVL, AVF, V1, V4-V6 ABNORMAL ECG Compared to ECG 09/21/2025 23:43:01 First degree AV block now present Electronically Signed On 10-28-2025 19:41:25 [employer]IOR [employer]OCIATE by Chris Farias D.O.
--- NOTE | 2025-10-28 18:24 | PC.NURSE ---
RT at bedside placing pt. on BiPAP.
--- NOTE | 2025-10-28 18:34 | ED.AMS ---
HPI - Altered Mental Status General Chief Complaint: Altered Mental Status Stated Complaint: unresponsive Time Seen by Provider: 10/28/25 18:08 History of Present Illness HPI narrative: Patient sent here from group home due to being unresponsive with difficulty breathing, patient tells me it is because her oxygen is low. She is denying other complaints. Related Data Home Medications ?Medication ?Instructions ?Recorded ?Confirmed ?Last Taken ?Type allopurinol 100 mg tablet 100 mg PO DAILY 10/27/24 09/22/25 09/10/25 History atorvastatin 20 mg tablet 20 mg PO DAILY 10/27/24 09/22/25 09/10/25 History ferrous sulfate 325 mg (65 mg 325 mg PO DAILY 10/27/24 09/22/25 09/10/25 History iron) tablet furosemide 40 mg tablet 40 mg PO DAILY 10/27/24 09/22/25 09/10/25 History gabapentin 300 mg capsule 300 mg PO TID 10/27/24 09/22/25 09/10/25 History levothyroxine 137 mcg tablet 137 mcg PO DAILY 10/27/24 09/22/25 09/10/25 History montelukast 10 mg tablet 10 mg PO HS 10/27/24 09/22/25 09/10/25 History Allergies Allergy/AdvReac Type Severity Reaction Status Date / Time No Known Allergies Allergy Verified 10/28/25 18:42 Review of Systems Review of Systems: All systems reviewed & are unremarkable except as noted in HPI and below PMFSH Past Medical History Medical History (Updated 10/28/25 @ 19:30 by Galilea Gonzáles MD) Congestive heart failure Chronic respiratory failure Asthma Cardiomyopathy Echo 10/28/2024ummary 1. Complete two-dimensional, color flow and Doppler transthoracic echocardiogram is performed. 2. Left ventricle is normal size and systolic function. There is concentric left ventricular remodeling. The left ventricular ejection fraction is visually estimated to be 60-65%. 3. The right ventricle is normal in size and systolic function. 4. There is no significant valvular disease Obesity Iron deficiency anemia Hypothyroidism Gout Hypertension Surgical History Surgical History (Updated 09/22/25 @ 07:03 by Eve Freitas APRN) History of colon resection Social History Social History (Updated 09/22/25 @ 07:06 by Eve Freitas APRN) Social History: She lives with her sister and is single. She has never been or had any children. Code status: Full code Smoking status: Never smoker Alcohol intake: never Substance use: never Substance use type: does not use Lack of Transportation: No Lack of Food: Never True Current Housing: I Have Housing Concerned About Future Housing: No Difficulty Paying Gas/Electric Bills: No Difficulty Paying for Meds: No Currently Unemployed: No Education: High School Diploma/GED Difficulty w/ Childcare or Family Care: No Spiritual care concerns: No Exam Narrative: EXAMINATION OF ORGAN SYSTEMS/BODY AREAS: Constitutional: Vital signs per nursing GENERAL: Sleepy but wakes to voice HEAD: Normal with no signs of head trauma. EYES: EOMI, conjunctiva normal ENT: Hearing grossly intact LUNGS: Shallow respirations HEART: [Regular rate and rhythm] ABD: [Soft], [nontender to palpation] EXT: Normal range of motion SKIN: Beefy red rash around diaper NEURO: [Sleepy but wakes to voice. No gross focal sensory or strength deficits.] PSYCH: Normal affect Course Vital Signs Vital signs: Vital Signs Temperature 97.8 F 10/28/25 18:00 Pulse Rate 97 10/28/25 18:00 Respiratory Rate 36 H 10/28/25 18:00 Blood Pressure 190/74 H 10/28/25 18:00 Pulse Oximetry 97 10/28/25 18:00 Oxygen Delivery Nasal Cannula 10/28/25 18:00 Oxygen Flow Rate 3 10/28/25 18:00 Temperature 97.8 F 10/28/25 18:00 Pulse Rate 97 10/28/25 18:00 Respiratory Rate 36 H 10/28/25 18:00 Blood Pressure 190/74 H 10/28/25 18:00 Pulse Oximetry 97 10/28/25 18:00 Oxygen Delivery Nasal Cannula 10/28/25 18:00 Oxygen Flow Rate 3 10/28/25 18:00 MDM MDM Narrative Medical decision making narrative: Patient presenting here in possible shortness of breath, unresponsiveness per group home. On exam she is quite sleepy but wakes to voice and answers questions appropriately. Has a beefy diaper rash consistent with yeast. She states that she is here because her oxygen was low. She is normally on 2 L of oxygen. She denies other complaints. Urinalysis consistent with UTI, her last susceptibilities show EBSL so I will start her on meropenem. Chest x-ray does appear consistent with fluid overload. I did order Lasix and given her breathing, started on BiPAP. EKG - 12-Lead: Performed at 1827. Interpreted by me. [Sinus rhythm]. Rate 95. [Normal] axis. OR-interval 216. QRS duration 97. QTc 423. [No ST segment elevation or depression]. [T-wave normal]. Impression: No EKG evidence of acute ischemia or dysrhythmia. ABG on my independent interpretation showing CO2 narcosis, acidosis. On re-evaluation patient is breathing much more comfortably on the BiPAP. I did have a discussion with the patient, her papers show that she is no CPR, I did verify this with her, she does want chest compressions and she does not want to be intubated. Will be discussed with hospitalist for admission. Differential Diagnosis Differential Diagnosis: Infection, CO2 narcosis, CHF or COPD exacerbation, etc Critical Care Time Critical Care Time Critical Care Time: Yes Indication: acute hypercapnic hypoxemic respiratory failure Initial evaluation, discuss w/ involved parties, attempting to gather old records: 10 minutes Documenting medical record: 5 minutes Review of results (EKG's, labs, imaging): 5 minutes Serial repeat bedside evaluation: 10 minutes Discussing case with multiple memebers of the care team and consultants: 5 minutes Total Critical Care Time: 35 Discharge Plan Discharge Clinical Impression: Acute hypercapnic respiratory failure, UTI (urinary tract infection), CHF exacerbation Patient Disposition: Still a Patient Condition: Serious Patient Language: Argentine Prescriptions: No Action furosemide 40 mg tablet 40 mg PO DAILY levothyroxine 137 mcg tablet 137 mcg PO DAILY atorvastatin 20 mg tablet 20 mg PO DAILY allopurinol 100 mg tablet 100 mg PO DAILY ferrous sulfate 325 mg (65 mg iron) tablet 325 mg PO DAILY gabapentin 300 mg capsule 300 mg PO TID montelukast 10 mg tablet 10 mg PO HS sennosides-docusate sodium [Senokot-S] 8.6-50 mg Tablet 1 tablet PO HS Qty: 30 0RF nitrofurantoin monohyd/m-cryst [Macrobid] 100 mg Capsule 100 mg PO Q12HR Qty: 7 0RF amoxicillin-pot clavulanate 875-125 mg tablet 1 tablet PO Q12H Qty: 4 0RF Follow-up/Referrals: Reid,Helen Garcia MD [Primary Care Provider, Unknown]
[2025-10-28 18:44] LABS: Hematocrit 44.1 % (37.0-47.0); Hemoglobin 12.3 g/dL (12.0-15.0); Immature Granulocyte Percent A 2.3 % (0-0.5); Lymphocytes Absolute Auto 1.36 K/mm3 (0.9-3.2); Mean Corpuscular HGB Conc 27.9 g/dl (32-36); Mean Corpuscular Hemoglobin 28.7 pg (26-34); Mean Corpuscular Volume 102.8 fl (80-100); Nucleated Red Blood Cells Absolute Auto 0.000 K/mm3 (0.0-0.012); Nucleated Red Blood Cells Perc 0.0 % (0.0-0.2); Platelet Count Result 243 k/mm3 (150-375); Red Blood Count 4.29 M/mm3 (4.2-5.4); White Blood Count 9.4 K/mm3 (4.5-10.0)
[2025-10-28 18:53] LABS: Alveolar/Arterial O2 Gradient 55.6 mmHg; Fractional Inspired Oxygen 40 %; HCO3 ABG 43.1 mEq/l (22.0-26.0); Oxygen Content ABG 17.1 %vol (16.0-22.0); Oxygen Saturation ABG 91.6 % (95.0-100.0); PO2 ABG 83.4 mmHg (80.0-100.0); PO2 FiO2 Ratio Arterial Blood 2.09 %
[2025-10-28 18:58] LABS: Cannabinoid Screen Urine Negative (Negative)
[2025-10-28 19:03] LABS: Modified Allen's Test Pass; PCO2 ABG 127.1 mmHg (35.0-45.0); Site Drawn RIGHT RADIAL
[2025-10-28 19:10] LABS: Add Urine Microscopic? YES; Appearance Urine Turbid (Clear); Glucose Urine UA Negative (Negative); Leukocyte Esterase Ur 2+ LEU/UL (Negative); Need Manual Microscopic Reviewed; Nitrate Urine Negative (Negative); Non Pathogenic Casts >20; Specific Grav Ur 1.018 (1.001-1.035)
[2025-10-28 19:13] LABS: Anisocytosis 1+; Schistocytes None Seen
[2025-10-28] MEDS: FUROSEMIDE INJ 40 MG/4 ML VIAL IV PUSH (19:37)
--- NOTE | 2025-10-28 19:40 | PC.NURSE ---
verbally states she is okay with RN placing schulte catheter.
--- NOTE | 2025-10-28 19:47 | PC.NURSE ---
MD Gonzáles states she does not want cultures drawn before starting IV antibiotics.
[2025-10-28] MEDS: MEROPENEM 1 GM in SODIUM CHLORIDE 0.9% IV 100 ML 200 ML IVPB ×2 (19:50→22:48)
[2025-10-28 20:01] LABS: Alanine Aminotransferase 10 U/L (6-35); Albumin Level 3.9 g/dL (3.5-5.1); Alkaline Phosphatase 81 U/L (38-126); Aspartate Amino Transferase 26 U/L (14-36); Bilirubin,Total 0.5 mg/dL (0.2-1.3); Blood Urea Nitrogen 34 mg/dL (7-17); Calcium 8.8 mg/dL (8.4-10.2); Carbon Dioxide > 40 mmol/L (22-30); Chloride 97 mmol/L (98-107); Estimated Glomerular Filt Rate 46; Glucose 109 mg/dL (65-110); Potassium 5.3 mmol/L (3.4-5.0); Sodium 140 mmol/L (137-145); Total Protein 7.5 g/dL (6.3-8.2)
[2025-10-28 20:26] LABS: NT Pro B Type Natriuretic Pept 389 pg/mL (19.9-100)
[2025-10-28 20:29] LABS: Thyroid Stimulating Hormone 2.870 uIU/mL (0.465-4.680)
[2025-10-28 20:43] LABS: Anion Gap 5.3 mmol/L (4-12)
[2025-10-28] MEDS: IPRATROPIUM 0.5 MG/ALBUTEROL SULFATE 2.5 MG (BASE) AMPUL.NEB 3 ML INHALATION ×3 (20:43→20:45)
[2025-10-28] MEDS: MICONAZOLE NITRATE 2% CREAM 30 GM TUBE 1 APPLIC TOPICAL (21:47)
--- NOTE | 2025-10-28 21:49 | P.HP_ITS ---
H&P: HPI History of Present Illness Date/Time: 10/28/25 21:49 Chief Complaint: Shortness of breath/altered mental status Narrative: 69-year-old female with PMH heart failure, obesity, chronic respiratory failure, hypothyroidism, iron deficiency anemia, asthma, gout, hypertension with recent hospital admission and [facility] discharged on 09/26/2025 with weakness and recurrent falls as well as VEE and UTI/pneumonia presents [facility] on 10/28/2025. She comes from [facility]. She was noted to have altered mental status for a few hours. She was drowsy. She had wheezing, shortness of breath. She usually uses 2 L nasal cannula. She was started on BiPAP. Chest x-ray showing fluid overload. She was given Lasix. Urinalysis consistent with UTI and she has history of ESBL, started on meropenem. EKG without evidence of acute ischemia. Sinus rhythm. QTC 423. ABG showing acute on chronic hypercapnia. Patient was adamant she wanted to be DNR. Only wanted to use BiPAP. After placement of BiPAP the patient was resting comfortably without any complaints. Blood pressure 170/116 initially increasing to 200/187. She is to receive hydralazine now. Afebrile. WBC 9400, hemoglobin 12.3, platelets 243, ABG: PH 7.148, pCO2 127 baseline around 50-56, PO2 83, on BiPAP 40% FiO2, bicarb 43. Potassium 5.3, BUN 34, serum creatinine 1.16 slightly elevated from discharge at 1.03. BNP 389. TSH 2.8, drugs of abuse screen negative. Urine culture obtained. Review of Systems Review of Systems: All systems reviewed & are unremarkable except as noted in HPI and below (Subjective) [facility] Past Medical History Medical History (Updated 10/28/25 @ 19:30 by Galilea Gonzáles MD) Congestive heart failure Chronic respiratory failure Asthma Cardiomyopathy Echo 10/28/2024ummary 1. Complete two-dimensional, color flow and Doppler transthoracic echocardiogram is performed. 2. Left ventricle is normal size and systolic function. There is concentric left ventricular remodeling. The left ventricular ejection fraction is visually estimated to be 60-65%. 3. The right ventricle is normal in size and systolic function. 4. There is no significant valvular disease Obesity Iron deficiency anemia Hypothyroidism Gout Hypertension Surgical History Surgical History (Updated 09/22/25 @ 07:03 by Eve Freitas APRN) History of colon resection Social History Social History (Updated 09/22/25 @ 07:06 by Eve Freitas APRN) Social History: She lives with her sister and is single. She has never been or had any children. Code status: Full code Smoking status: Never smoker Alcohol intake: never Substance use: never Substance use type: does not use Lack of Transportation: No Lack of Food: Never True Current Housing: I Have Housing Concerned About Future Housing: No Difficulty Paying Gas/Electric Bills: No Difficulty Paying for Meds: No Currently Unemployed: No Education: High School Diploma/GED Difficulty w/ Childcare or Family Care: No Spiritual care concerns: No Meds Home Medications and Allergies Home Medications ?Medication ?Instructions ?Recorded ?Confirmed ?Type allopurinol 100 mg tablet 100 mg PO DAILY 10/27/2412/16 History atorvastatin 20 mg tablet 20 mg PO DAILY 10/27/2412/16 History ferrous sulfate 325 mg (65 mg 325 mg PO DAILY 10/27/24 09/22/25 History iron) tablet furosemide 40 mg tablet 40 mg PO DAILY 10/27/2412/16 History gabapentin 300 mg capsule 300 mg PO TID 10/27/2409/22 History levothyroxine 137 mcg tablet 137 mcg PO DAILY 10/27/24 09/22/25 History montelukast 10 mg tablet 10 mg PO HS 10/27/24 5 History amoxicillin 875 mg-potassium 1 tablet PO Q12H #4 tabs 09/26/25 Rx clavulanate 125 mg tablet nitrofurantoin 100 mg PO Q12HR #7 caps 04/15 Rx monohydrate/macrocrystals 100 mg capsule (Macrobid) sennosides 8.6 mg-docusate sodium 1 tablet PO HS #30 t abs 09/26/25 Rx 50 mg tablet (Senokot-S) Allergies Allergy/AdvReac Type Severity Reaction Status Date / Time No Known Allergies Allergy Verified 10/28/25 18:42 Vital Signs Vital Signs - 24 hr 10/28/25 18:00 10/28/25 18:24 10/28/25 18:40 Temperature 97.8 F Pulse Rate 97 97 94 Respiratory Rate 36 H 27 H 20 Blood Pressure 190/74 H 189/94 H Pulse Oximetry 97 98 100 Oxygen Delivery Nasal Cannula BiPAP Oxygen Flow Rate 3 10/28/25 18:47 10/28/25 19:01 10/28/25 19:13 Temperature Pulse Rate 93 89 91 Respiratory Rate 22 H 19 25 H Blood Pressure 177/89 H 182/85 H Pulse Oximetry 100 100 100 Oxygen Delivery BiPAP Oxygen Flow Rate 10/28/25 19:17 10/28/25 19:31 10/28/25 19:38 Temperature Pulse Rate 92 91 90 Respiratory Rate 19 23 H 14 Blood Pressure 173/106 H 164/112 H 164/112 H Pulse Oximetry 96 96 98 Oxygen Delivery Oxygen Flow Rate 10/28/25 19:39 10/28/25 19:46 10/28/25 20:16 Temperature Pulse Rate 91 89 Respiratory Rate 23 H 24 H Blood Pressure 170/116 H 150/135 H Pulse Oximetry 98 100 98 Oxygen Delivery BiPAP Oxygen Flow Rate 10/28/25 20:31 10/28/25 20:46 10/28/25 20:46 Temperature Pulse Rate 87 82 82 Respiratory Rate 24 H 30 H 24 H Blood Pressure 170/134 H 200/187 H Pulse Oximetry 97 96 Oxygen Delivery Oxygen Flow Rate Exam Const: General: comfortable and no acute distress Other: A&O x3 Eyes: Pupils: Equal, round and reactive pupils present Neck: Neck: supple Resp: Auscultation: crackles, wheezes and diminished lung sounds Cardio: Rate: regular rate Rhythm: regular rhythm Heart sounds: no gallops GI: Inspection: non-distended GI Palp: Yes Soft to palpation : Other: Intertriginous dermatitis Neuro: Motor exam (neuro): 5/5 motor strength present throughout Extrem: Other: Lipodermatosclerosis bilateral lower extremities with minimal pitting edema Results Labs Labs: Short CBC 10/28/25 Range/Units 18:35 WBC 9.4 (4.5-10.0) K/mm3 Hgb 12.3 (12.0-15.0) g/dL Hct 44.1 (37.0-47.0) % Plt Count 243 (150-375) k/mm3 BMP 10/28/25 18:35 Sodium 140 Potassium 5.3 H Chloride 97 L Carbon Dioxide > 40 H BUN 34 H D Creatinine 1.16 H Glucose 109 Calcium 8.8 Liver Function 10/28/25 Range/Units 18:35 Total Bilirubin 0.5 (0.2-1.3) mg/dL AST 26 (14-36) U/L ALT 10 (6-35) U/L Alkaline Phosphatase 81 (38-126) U/L Albumin 3.9 (3.5-5.1) g/dL Urine 10/28/25 Range/Units 18:25 Urine Color Yellow (Yellow) Urine Appearance Turbid H (Clear) Urine pH 7.0 (5.0-9.0) Ur Specific [place] 1.018 (1.001-1.035) Urine Protein 3+ H (Negative) mg/dL Urine Glucose (UA) Negative (Negative) mg/dL Assessment and Plan Assessment and plan (1) VEE (acute kidney injury): Code(s): N17.9 - Acute kidney failure, unspecified Status: Acute (2) UTI (urinary tract infection): Code(s): N39.0 - Urinary tract infection, site not specified Status: Acute (3) Acute hypercapnic respiratory failure: Code(s): J96.02 - Acute respiratory failure with hypercapnia Status: Acute Plan Patient presents with acute on chronic respiratory failure with hypercapnia and hypoxia. She has wheezing, diminished breath sounds, slight crackles, reveal pitting edema with a not very high BNP in the setting of decreased GFR albeit she is obese. Her treatment plan will consist of BiPAP, ABG in the morning, DuoNebs, Solu-Medrol. Mild heart failure if any, however not very convincing. Will obtain a CT chest PE protocol. Daily weights, strict intake/output. Continue meropenem for UTI. 2D echocardiogram on 10/28/2024 demonstrates ejection fraction normal 65%. Will repeat another. Check quad viral screen, full respiratory pathogen panel. Trend renal function. Miconazole nitrate topical b.i.d. for genital intertrigo dermatitis Mild hyperkalemia. Recheck BMP. Patient does wish to be DNR. Heart healthy diet when stable off BiPAP. Saline lock IV. Fall precautions, ambulate with assistance. PT/OT. Prior Studies I have reviewed the following patient records and this information was taken into consideration when formulating the assessment and plan.: previous labs, previous ER visits and previous hospitalizations Time Spent with Patient Time with patient: 45 - 74 minutes Hospitalist [facility] Advance Care Plan I have confirmed that the patient's Advanced Care Plan is present, code status is documented, or surrogate decision maker is listed in patient medical record.: Yes Medication Reconciliation I have utilized all available resources to obtain, update and review the patients current medications (includes all prescriptions, OTC, herbals, cannabis, and nutritional supplements).: Yes
[2025-10-28 23:31] LABS: Blood Urea Nitrogen 34 mg/dL (7-17); Calcium 8.6 mg/dL (8.4-10.2); Carbon Dioxide > 40 mmol/L (22-30); Chloride 97 mmol/L (98-107); Estimated Glomerular Filt Rate 51; Glucose 129 mg/dL (65-110); Potassium 4.8 mmol/L (3.4-5.0); Sodium 139 mmol/L (137-145)
--- NOTE | 2025-10-28 23:36 | PC.NURSE ---
Pt request that this RN get a hold of her sister for an update. This RN attempted twice and was unable to get a hold of her sister. Pt updated at this time.
[2025-10-28 23:37] LABS: Influenza A QL RT-PCR Negative (Negative); Influenza B QL RT-PCR Negative (Negative); RSV RNA, RT-PCR Negative (Negative); SARS-CoV-2 RNA PCR Negative (Negative)
[2025-10-29] VITALS (34 sets, daily range): BP systolic 133–196; BP diastolic 53–123; PULSE 86–112; RESP 16–42; TEMP 36.4–37; O2SAT 88–100; BMI 54.6
--- NOTE | 2025-10-29 | ECHO_ITS ---
Patient Info Name: June Petty Age: 69 years : 1955 Gender: Female Ht: 62 in Wt: 326 lbs BSA: 2.65 m2 HR: 91 bpm BP: 140 / 56 mmHg Technical Quality: Fair Exam Date: 10/29/2025 1:22 PM Patient Status: I Admit Date: 10/28/2025 Exam Type: CA echo dop color flow w con Complete two-dimensional, color flow and Doppler transthoracic echocardiogram is performed with contrast to opacify the left ventricle and to improve the deliniation of the left ventricle endocardial borders. Staff Referring Physician: Marina Marquez Exhibits Curator: Chau Mcnulty III Attending Provider: Marina Marquez Contrast/Agitated Saline Contrast/Ag. Saline: Definity Amount: 2.00 ml Administered By: Chau Mcnulty III Existing IV Access: Yes IV Access Condition: patent with no signs of infiltration Summary 1. Technically difficult study with limited views. 2. The cardiac valves are not fully visualized in this study. 3. Overall, appears to have normal biventricular size and systolic function. Left Ventricle The left ventricle is normal in size and systolic function. There is mild concentric left ventricular hypertrophy. The left ventricular ejection fraction is visually estimated to be 60-65%. Right Ventricle The right ventricle is normal in size and systolic function. Left Atria The left atrium is normal size. Right Atria Right atrium is normal size. Atrial Septum Atrial septum is not well visualized. Aortic Valve The aortic valve is trileaflet and opens well. There is no aortic regurgitation. Pulmonic Valve The pulmonic valve is not well visualized. Mitral Valve The mitral valve leaflets are sclerotic. Tricuspid Valve The tricuspid valve is grossly normal. Pericardium/Pleural Pericardium is normal in appearance with no evidence for significant pericardial effusion. Inferior Vena Cava Inferior vena cava is not well visualized. Aorta The aortic root at the level of the sinus of Valsalva measures 2.8 cm in diameter. Left Ventricular Outflow Tract Name Value Normal LVOT 2D LVOT Diameter 2.1 cm LVOT Doppler LVOT Peak Velocity 172 cm/s LVOT Peak Gradient 12 mmHg LVOT Mean Gradient 8 mmHg LVOT VTI 34 cm LVOT VTI/AV VTI Ratio 1.0 LVOT Stroke Volume 117 ml LVOT CO 12.2 l/min LVOT CI 4.6 l/min/m2 Pulmonic Valve Name Value Normal PV Doppler PV Peak Velocity 216 cm/s PV Peak Gradient 19 mmHg PV Mean Gradient 9 mmHg Mitral Valve Name Value Normal MV Doppler MV Peak Gradient 10 mmHg MV Mean Gradient 5 mmHg MV Area (Cont Eq VTI) 4.4 cm2 MV Diastolic Function MV E Peak Velocity 119 cm/s MV A Peak Velocity 149 cm/s MV E/A 0.8 MV Decel Time (PW) 190 ms MV Annular TDI MV E/e' (Septal) 24.3 MV E/e' (Lateral) 9.8 MV E/e' (Average) 17.1 Aortic Valve Name Value Normal AV Doppler AV Peak Velocity 205 cm/s AV Peak Gradient 17 mmHg AV Mean Gradient 9 mmHg AV VTI 35 cm AV Area (Cont Eq VTI) 3.4 cm2 >=3.0 AV Area (Cont Eq Chang) 2.9 cm2 AV DI (Chang) 0.84 AV Regurgitation 2D LVOT Area 3.5 cm2 Ventricles Name Value Normal LV Dimensions 2D/MM IVS Diastolic Thickness (2D) 1.4 cm 0.6-1.0 LVID Diastole (2D) 5.0 cm 3.8-5.2 LVIW Diastolic Thickness (2D) 1.4 cm 0.6-0.9 LVID Systole (2D) 2.9 cm 2.2-3.5 LVOT Diameter 2.1 cm LV Mass (2D Cubed) 283.91 g 67.00-162.00 LV Mass Index (2D Cubed) 107 g/m2 43-95 Relative Wall Thickness (2D) 0.57 <=0.42 LV Fractional Shortening/Ejection Fraction 2D/MM LV Fractional Shortening (2D) 41 % 27-45 LV EF (2D Teichholz) 72 % LV Diastolic Volume (4C MOD) 115 ml LV EF (4C MOD) 81 % LV Diastolic Volume (2C MOD) 109 ml LV EF (2C MOD) 87 % LV Diastolic Volume (BP MOD) 114 ml 46-106 LV Diastolic Volume Index (BP MOD) 43 ml/m2 29-61 LV Systolic Volume (BP MOD) 18 ml 14-42 LV Systolic Volume Index (BP MOD) 7 ml/m2 8-24 LV EF (BP MOD) 84 % 54-74 LV Diastolic Length (4C) 8.5 cm LV Systolic Length (4C) 6.7 cm LV Stroke Volume (4C MOD) 94 ml Atria Name Value Normal LA Dimensions LA Volume (4C A-L) 74 ml LA Volume (BP A-L) 76 ml Report Signatures
--- NOTE | 2025-10-29 00:58 | WPCEDHO ---
ED Hand Off Checklist All vitals saved: Yes IV Site documented: Yes All med administrations documented: Yes Triage Note Triage Note To ed via ems from [facility] 10/28/25 18:00 [facility]. Staff reported to ems that pt has had altered mental status since lunch. Last known normal was approx 1300. Pt drowsy but arousable to verbal. A & O x4. Resp labored with audible wheezing noted. Uses home 02 at 2 l NC at home. Denies any pain. Allergies No Known Allergies Allergy (Verified 10/28/25 18:42) Current Diagnoses Acute respiratory failure with hypercapnia (10/28/25) Acute kidney failure, unspecified (10/28/25) Urinary tract infection, site not specified (10/28/25) Active Medications including assessments/comments Methylprednisolone Sodium Succinate (Methylprednisolone Sod Succ 125 Mg Vial) 80 mg IV PUSH Q8HR [facility] Last Admin: 10/28/25 22:46 Dose: 80 mg Documented By: ABRAHAM Miconazole Nitrate (Miconazole Nitrate 2% Cream 30 Gm Tube) 1 applic TOPICAL Q12HR [facility] Last Admin: 10/28/25 21:47 Dose: 1 applic Documented By: ABRAHAM Miscellaneous Information (Please Add Site Of Application For Miconazole) 1 each XX CLARIFY YFN Stop: 11/27/25 00:00 Last Admin: 10/29/25 00:02 Dose: 1 each Documented By: ABRAHAM Comments: Applied to BILATERAL LOWER LEGS. Admin: 10/28/25 21:47 Dose: 1 each Documented By: ABRAHAM Comments: Applied to pt bilateral legs. Administered/Completed Medications Discontinued Medications Albuterol/Ipratropium (Ipratropium 0.5 Mg/Albuterol Sulfate 2.5 Mg (Base) Ampul.Neb 3 Ml) 3 ml INHALATION Q20M [facility] Stop: 10/28/25 20:56 Last Admin: 10/28/25 20:45 Dose: 3 ml Documented By: Admin: 10/28/25 20:45 Dose: 3 ml Documented By: Admin: 10/28/25 20:43 Dose: 3 ml Documented By: AKILA Furosemide (Furosemide Inj 40 Mg/4 Ml Vial) 40 mg IV PUSH ONCE STA Stop: 10/28/25 19:09 Last Admin: 10/28/25 19:37 Dose: 40 mg Documented By: ABRAHAM Hydralazine HCl (Hydralazine Hcl 20 Mg/Ml Vial) 10 mg IV PUSH ONCE ONE Stop: 10/28/25 22:03 Last Admin: 10/28/25 22:46 Dose: 10 mg Documented By: ABRAHAM Comments: Meropenem 1 gm/ Sodium (Chloride) 100 mls @ 200 mls/hr IVPB ONCE ONE Stop: 10/28/25 19:46 Last Infusion: 10/28/25 20:21 Dose: Infused Documented By: Admin: 10/28/25 19:50 Dose: 200 mls/hr Documented By: ABRAHAM Meropenem 1 gm/ Sodium (Chloride) 100 mls @ 200 mls/hr IVPB ONCE ONE Stop: 10/28/25 22:49 Last Infusion: 10/28/25 23:30 Dose: Infused Documented By: Admin: 10/28/25 22:48 Dose: 200 mls/hr Documented By: ABRAHAM Notes 10/28/25 23:36 Nurse Note by Zoë Fuentes Pt request that this RN get a hold of her sister for an update. This RN attempted twice and was unable to get a hold of her sister. Pt updated at this time. Initialized on 10/28/25 23:36 - END OF NOTE 10/28/25 19:47 Nurse Note by Zoë Fuentes MD Gonzáles states she does not want cultures drawn before starting IV antibiotics. Initialized on 10/28/25 19:47 - END OF NOTE 10/28/25 19:40 Nurse Note by Zoë Fuentes MD verbally states she is okay with RN placing schulte catheter. Initialized on 10/28/25 19:40 - END OF NOTE 10/28/25 18:24 Nurse Note by Margie Garner RT at bedside placing pt. on BiPAP. Initialized on 10/28/25 18:24 - END OF NOTE Interventions/Assessments IV / Saline Lock, Insert Start: 10/28/25 17:55 Freq: Status: Active Protocol: Document 10/28/25 19:50 ABRAHAM (Rec: 10/28/25 19:50 ABRAHAM [id number]) IV Assessment Peripheral Access Left Arm, Upper IV Catheter Access Initiated Before Arrival Catheter Gauge 18 IV Site Assessment WNL IV Care and WNL Maintenance PA: Cardiovascular Assessment Start: 10/28/25 17:55 Freq: Status: Active Protocol: Document 10/28/25 18:14 LEV (Rec: 10/28/25 18:14 LEV [id number]) Cardiovascular Assessment Cardiovascular Dyspnea Symptoms Skin Description Normal Color Heart Sounds Normal Jugular Vein None Distention Rhythm/Strength Monitor Rhythm Regular Pulse Strength 3+ Normal EKG Rythm Sinus Tachycardia PA: Neurological Assessment Start: 10/28/25 17:55 Freq: Status: Active Protocol: Document 10/28/25 18:13 LEV (Rec: 10/28/25 18:14 LEV [id number]) Neurological Assessment Level of Drowsy Consciousness Arousable to Verbal Orientation Oriented to Person,Oriented to Place,Oriented to Time Neurological Weakness, General Symptoms Unable to Redirect No Behavior Behavior Appropriate,Cooperative Patient Able to Comprehend Comprehension Memory Description Intact Ability to Maintain Unable to Assess Balance PA: Respiratory Assessment Start: 10/28/25 17:55 Freq: Status: Active Protocol: Document 10/28/25 18:12 LEV (Rec: 10/28/25 18:13 LEV [id number]) Respiratory Assessment Symptoms Shortness of Breath at Rest,Wheezing Effort Abdominal Breathing Depth Normal Chest Expansion Symmetrical Adult Capillary Normal/Less than 2 Seconds Refill Throughout Phase Expiratory Lung Sounds Wheezes Cough Description None Last Vital Signs Temperature 98.5 F 10/29/25 00:03 Pulse Rate 90 10/28/25 23:46 Respiratory Rate 22 H 10/28/25 23:46 Pulse Oximetry 100 10/28/25 23:46 Blood Pressure 138/97 H 10/28/25 23:46 Blood Pressure Mean 107 10/28/25 23:46 Blood Pressure Position Supine 10/28/25 18:00 Oxygen Delivery BiPAP 10/28/25 21:52 Oxygen Flow Rate 3 10/28/25 18:00 Fraction of Inspired Oxygen 30 10/28/25 21:52 Weight 148.2 kg 10/28/25 18:00 Last Result - Abnormals Only MCV 102.8 fl (80-100) H 10/28/25 18:35 MCHC 27.9 g/dl (32-36) L 10/28/25 18:35 RDW 14.7 % (11.5-14.5) H 10/28/25 18:35 Immature Gran % (Auto) 2.3 % (0-0.5) H 10/28/25 18:35 Lymph % (Auto) 14.4 % (18.3-44.2) L 10/28/25 18:35 Eos % (Auto) 4.6 % (0-4.4) H 10/28/25 18:35 Eos # (Auto) 0.4 K/mm3 (0-0.3) H 10/28/25 18:35 Abs Immat Gran (auto) 0.22 K/mm3 (0.00-0.031) H 10/28/25 18:35 Absolute Neuts (auto) 6.8 K/mm3 (1.3-6.7) H 10/28/25 18:35 ABG pH 7.148 (7.350-7.450) L* 10/28/25 18:46 ABG pCO2 127.1 mmHg (35.0-45.0) H* 10/28/25 18:46 ABG HCO3 43.1 mEq/l (22.0-26.0) H 10/28/25 18:46 ABG O2 Saturation 91.6 % (95.0-100.0) L 10/28/25 18:46 Potassium 5.3 mmol/L (3.4-5.0) H 10/28/25 18:35 Chloride 97 mmol/L (98-107) L 10/28/25 22:53 Carbon Dioxide > 40 mmol/L (22-30) H 10/28/25 22:53 BUN 34 mg/dL (7-17) H 10/28/25 22:53 Creatinine 1.06 mg/dL (0.7-1.0) H 10/28/25 22:53 Estimated GFR 51 (59-) L 10/28/25 22:53 Glucose 129 mg/dL (65-110) H 10/28/25 22:53 NT-Pro-B Natriuret Pep 389 pg/mL (19.9-100) H 10/28/25 18:35 Urine Appearance Turbid (Clear) H 10/28/25 18:25 Urine Protein 3+ mg/dL (Negative) H 10/28/25 18:25 Ur Blood (Man) Non-hemolyzed trace (Negative) H 10/28/25 18:25 Leukocyte Esterase Rfl 2+ JENNA/UL (Negative) H 10/28/25 18:25 Urine WBC >100 /hpf (0-3) H 10/28/25 18:25 Urine WBC Clumps Present /HPF (None) H 10/28/25 18:25 Most Recent Suicide Severity Rating Suicide Severity Rating NO RISK INDICATED 10/28/25 18:00
--- NOTE | 2025-10-29 01:04 | WPCACHO ---
Situation Room: Virtual Bed IMU Bed: 2 Registration Status: ADM IN Reason for Visit: CO2 narcosis, acidosis, UTI Primary Language: Yoruba Preferred Language for Healthcare Information: Yoruba Living Arrangement: Contact: /Person to Notify// Admitting: Marina Marquez MD Attending: Marina Marquez MD Primary: Helen Mathews, Referring: Background Triage Note: To ed via ems from [facility]. Staff reported to ems that pt has had altered mental status since lunch. Last known normal was approx 1300. Pt drowsy but arousable to verbal. A & O x4. Resp labored with audible wheezing noted. Uses home 02 at 2 l NC at home. Denies any pain. Assessment New observations/notes/concerns this shift: Recommendations Abnormal labs: Specimens to Collect: Planned/Potential Procedures: Consents Obtained/Needed: Consults: Other follow-up needed: Discharge Planning Note: Code Status 10/28/25 19:21 Code Status ORDER Resuscitation Status: Do Not Resuscitate
--- NOTE | 2025-10-29 01:27 | PC.NURSE ---
ED respiratory states its going to be a minute before he can help take up the pt to the floor. oilseed meat presser made aware.
--- NOTE | 2025-10-29 02:37 | ADMGEN ---
This patient, June Petty, was admitted to IMU Room 201-01 on 10/29/25 at 0206. Patient/family oriented to hospital policies and general routines including ID bracelet, bed and alarms, visiting hours, pain management, procedures, bathroom and other care routines, personal items, smoking policy, room service/diet, and visiting hours. Information on how to activate the Rapid Response Team has been discussed. Patient/Family are encouraged to report perceived risks to care and to ask questions if they do not understand what they are told or what they should do.
[2025-10-29 04:14] LABS: Hematocrit 41.5 % (37.0-47.0); Hemoglobin 11.8 g/dL (12.0-15.0); Immature Granulocyte Percent A 5.1 % (0-0.5); Lymphocytes Absolute Auto 0.34 K/mm3 (0.9-3.2); Mean Corpuscular HGB Conc 28.4 g/dl (32-36); Mean Corpuscular Hemoglobin 28.7 pg (26-34); Mean Corpuscular Volume 101.0 fl (80-100); Nucleated Red Blood Cells Absolute Auto 0.000 K/mm3 (0.0-0.012); Nucleated Red Blood Cells Perc 0.0 % (0.0-0.2); Platelet Count Result 234 k/mm3 (150-375); Red Blood Count 4.11 M/mm3 (4.2-5.4); White Blood Count 10.8 K/mm3 (4.5-10.0)
[2025-10-29 04:29] LABS: Blood Urea Nitrogen 32 mg/dL (7-17); Calcium 9.0 mg/dL (8.4-10.2); Chloride 95 mmol/L (98-107); Estimated CRCL calculation 58 ml/min; Estimated Glomerular Filt Rate 50; Glucose 144 mg/dL (65-110); Magnesium 1.6 mg/dL (1.6-2.3); Potassium 4.4 mmol/L (3.4-5.0); Sodium 141 mmol/L (137-145)
--- NOTE | 2025-10-29 04:46 | PCRCNOTE ---
Window of time for administration has passed. See next scheduled administration.
[2025-10-29 04:58] LABS: Alveolar/Arterial O2 Gradient 62.9 mmHg; Carboxyhemoglobin 1.0 % THb (0-2.0); Fractional Inspired Oxygen 30 %; HCO3 ABG 42.5 mEq/l (22.0-26.0); Methemoglobin ABG 0.1 %THb (0-1.5); Oxygen Content ABG 16.4 %vol (16.0-22.0); Oxygen Saturation ABG 92.7 % (95.0-100.0); PO2 ABG 67.8 mmHg (80.0-100.0); PO2 FiO2 Ratio Arterial Blood 2.26 %; Reduced Hemoglobin 5.7 %THb (0-5.0)
[2025-10-29 05:07] LABS: Anisocytosis 1+; Stomatocytes Occasional
[2025-10-29 05:08] LABS: Schistocytes None Seen
[2025-10-29 05:09] LABS: Modified Allen's Test Pass; PCO2 ABG 70.8 mmHg (35.0-45.0); Site Drawn RIGHT RADIAL
[2025-10-29 05:10] LABS: Arterial Blood Gas Ventilator rate 4 /MIN
[2025-10-29 06:25] LABS: Anion Gap 12 mmol/L (4-12); Carbon Dioxide 34 mmol/L (22-30)
[2025-10-29] MEDS: GABAPENTIN 300 MG CAPSULE PO ×3 (06:56→20:02)
[2025-10-29] MEDS: LEVOTHYROXINE SODIUM 25 MCG TABLET PO (06:56)
[2025-10-29] MEDS: LEVOTHYROXINE SODIUM 112 MCG TABLET PO (06:56)
[2025-10-29] MEDS: IPRATROPIUM 0.5 MG/ALBUTEROL SULFATE 2.5 MG (BASE) AMPUL.NEB 3 ML INHALATION ×3 (07:39→20:29)
[2025-10-29] MEDS: ATORVASTATIN 20 MG TABLET PO (08:27)
[2025-10-29] MEDS: FERROUS SULFATE 325 MG TABLET BY MOUTH (08:27)
[2025-10-29] MEDS: MICONAZOLE NITRATE 2% CREAM 30 GM TUBE 1 APPLIC TOPICAL ×2 (08:27→20:03)
[2025-10-29] MEDS: MEROPENEM 2 GM in SODIUM CHLORIDE 0.9% IV 100 ML IVPB ×2 (09:02→17:06)
--- NOTE | 2025-10-29 09:51 | P.PNIM_ITS ---
Assessment and Plan Assessment and Plan (1) Acute hypercapnic respiratory failure: Code(s): J96.02 - Acute respiratory failure with hypercapnia Status: Acute Assessment and Plan: * Symptoms: wheezing, diminished breath sounds, slight crackles * Suspected cause: likely CHF exacerbation * SpO2: Lowest O2 88%, now 100% on 2L * ABG: pH 7.396, CO2 70.8, O2 67.8, HCO3 42.5, O2 saturation 92.7 * EKG: Sinus rhythm w/ 1st D AV block w/ occasional premature Vent complexes * Chest XR: CHF * Chest CTA: No pulmonary embolus. Mild pulmonary edema. * Echo pending * BiPAP overnight - 2L NC during the day * Continue duo-nebs, Methylprednisone 80mg IV q8 hrs (2) CHF exacerbation: Code(s): I50.9 - Heart failure, unspecified Status: Acute Assessment and Plan: * See above * BNP: 389 * Chest XR: CHF * Echo: repeat pending * Monitor vital signs, I&Os, BUN/creatinine, daily weights, neuro status and patient is a fall risk * Monitor serum electrolytes, Keep serum Potassium>4 and serum Magnesium>2 and CBC * Resume Lasix 40mg (3) UTI (urinary tract infection): Code(s): N39.0 - Urinary tract infection, site not specified Status: Acute Assessment and Plan: * UA indicative of infection, w/ WBC * UC obtained on 10/28 * started on Meropenem on 10/28 Subjective Date/time seen: 10/29/25 09:51 Interval history: 69-year-old female with PMH heart failure, obesity, chronic respiratory failure, hypothyroidism, iron deficiency anemia, asthma, gout, HTN w/ recent hospital admission discharged on 09/26/2025 with weakness and recurrent falls as well as VEE and UTI/pneumonia. Comes from [facility]. Noted to have AMS for a few hours. She was drowsy. She had wheezing & SOB. On 2L NC baseline. 10/29/2025 Patient sitting comfortably in bed at time of examination. Denies any chest pain, shortness of breath nausea/vomiting or abdominal pain at this time. Back on 2 L nasal cannula, which is her baseline. Urine culture still pending. Review of Systems Review of Systems: All systems reviewed & are unremarkable except as noted in HPI and below Exam Const: General: comfortable and no acute distress Other: A&O x3 Eyes: Pupils: Equal, round and reactive pupils present Neck: Neck: supple Resp: Auscultation: crackles, wheezes and diminished lung sounds Cardio: Rate: regular rate Rhythm: regular rhythm Heart sounds: no gallops GI: Inspection: non-distended : Other: Intertriginous dermatitis Neuro: Cranial nerves: Yes Equal, round and reactive pupils present Motor exam (neuro): 5/5 motor strength present throughout Extrem: Other: Lipodermatosclerosis bilateral lower extremities with minimal pitting edema Objective Data Vital Signs Vital Signs: Vital Signs - 24 hr 10/28/25 18:00 10/28/25 18:24 10/28/25 18:40 Temperature 97.8 F Pulse Rate 97 97 94 Respiratory Rate 36 H 27 H 20 Blood Pressure 190/74 H 189/94 H Pulse Oximetry 97 98 100 Oxygen Delivery Nasal Cannula BiPAP Oxygen Flow Rate 3 Fraction of Inspired Oxygen 10/28/25 18:47 10/28/25 19:01 10/28/25 19:13 Temperature Pulse Rate 93 89 91 Respiratory Rate 22 H 19 25 H Blood Pressure 177/89 H 182/85 H Pulse Oximetry 100 100 100 Oxygen Delivery BiPAP Oxygen Flow Rate Fraction of Inspired Oxygen 10/28/25 19:17 10/28/25 19:31 10/28/25 19:38 Temperature Pulse Rate 92 91 90 Respiratory Rate 19 23 H 14 Blood Pressure 173/106 H 164/112 H 164/112 H Pulse Oximetry 96 96 98 Oxygen Delivery Oxygen Flow Rate Fraction of Inspired Oxygen 10/28/25 19:39 10/28/25 19:46 10/28/25 20:16 Temperature Pulse Rate 91 89 Respiratory Rate 23 H 24 H Blood Pressure 170/116 H 150/135 H Pulse Oximetry 98 100 98 Oxygen Delivery BiPAP Oxygen Flow Rate Fraction of Inspired Oxygen 10/28/25 20:31 10/28/25 20:46 10/28/25 20:46 Temperature Pulse Rate 87 82 82 Respiratory Rate 24 H 30 H 24 H Blood Pressure 170/134 H 200/187 H Pulse Oximetry 97 96 Oxygen Delivery Oxygen Flow Rate Fraction of Inspired Oxygen 10/28/25 21:52 10/28/25 21:52 10/28/25 22:52 Temperature Pulse Rate 87 87 87 Respiratory Rate 21 H 24 H Blood Pressure 150/64 H Pulse Oximetry 98 98 100 Oxygen Delivery BiPAP BiPAP Oxygen Flow Rate Fraction of Inspired Oxygen 30 10/28/25 23:01 10/28/25 23:34 10/28/25 23:46 Temperature Pulse Rate 86 91 90 Respiratory Rate 21 H 27 H 22 H Blood Pressure 151/55 H 137/75 138/97 H Pulse Oximetry 100 100 100 Oxygen Delivery Oxygen Flow Rate Fraction of Inspired Oxygen 10/29/25 00:03 10/29/25 00:08 10/29/25 00:17 Temperature 98.5 F Pulse Rate 90 88 Respiratory Rate 22 H 22 H Blood Pressure 196/123 H 153/69 H Pulse Oximetry 99 98 Oxygen Delivery Oxygen Flow Rate Fraction of Inspired Oxygen 10/29/25 00:31 10/29/25 00:46 10/29/25 01:01 Temperature Pulse Rate 88 89 86 Respiratory Rate 19 22 H 25 H Blood Pressure 151/67 H 133/58 L 141/58 H Pulse Oximetry 88 L 96 97 Oxygen Delivery Oxygen Flow Rate Fraction of Inspired Oxygen 10/29/25 02:06 10/29/25 02:10 10/29/25 02:14 Temperature 97.6 F Pulse Rate 96 98 97 Respiratory Rate 27 H 33 H Blood Pressure 150/80 H Pulse Oximetry 100 94 Oxygen Delivery BiPAP Oxygen Flow Rate Fraction of Inspired Oxygen 10/29/25 02:20 10/29/25 04:00 10/29/25 04:25 Temperature Pulse Rate 96 92 91 Respiratory Rate 27 H 21 H Blood Pressure Pulse Oximetry 100 95 Oxygen Delivery BiPAP BiPAP Oxygen Flow Rate Fraction of Inspired Oxygen 30 30 10/29/25 04:26 10/29/25 04:44 10/29/25 06:00 Temperature 97.6 F Pulse Rate 101 H 91 90 Respiratory Rate 22 H 40 H Blood Pressure 140/56 L Pulse Oximetry 93 97 Oxygen Delivery BiPAP Oxygen Flow Rate Fraction of Inspired Oxygen 10/29/25 06:50 10/29/25 07:30 10/29/25 07:40 Temperature Pulse Rate 101 H 96 93 Respiratory Rate 22 H 24 H 20 Blood Pressure Pulse Oximetry 93 96 95 Oxygen Delivery BiPAP Nasal Cannula Nasal Cannula Oxygen Flow Rate 2 2 Fraction of Inspired Oxygen 30 10/29/25 07:40 10/29/25 07:46 10/29/25 08:00 Temperature 98.1 F Pulse Rate 93 93 94 Respiratory Rate 20 20 16 Blood Pressure 149/81 H Pulse Oximetry 100 Oxygen Delivery Oxygen Flow Rate Fraction of Inspired Oxygen Intake/Output Intake/Output: Intake & Output 10/26/25 10/27/25 10/28/25 10/29/25 23:59 23:59 23:59 23:59 Intake Total 200 236 Output Total 2150 Balance 200 -1914 Meds/Results Medications: Active Medications Generic Name Dose Route Start Last Admin Trade Name Elsa PRN Reason Stop Dose Admin Albuterol/Ipratropium 3 ml 10/29/25 02:00 10/29/25 07:39 Ipratropium 0.5 Mg/Albuterol Sulfate 2.5 Mg (Base) Ampul.Neb 3 Ml INHALATION 3 ml Q6HRT YFN Administration Allopurinol 100 mg 10/29/25 08:00 10/29/25 08:27 Allopurinol 100 Mg Tablet PO 100 mg DAILY@0800 YFN Administration Atorvastatin Calcium 20 mg 10/29/25 09:00 10/29/25 08:27 Atorvastatin 20 Mg Tablet PO 20 mg DAILY YFN Administration Ferrous Sulfate 325 mg 10/29/25 09:00 10/29/25 08:27 Ferrous Sulfate 325 Mg Tablet BY MOUTH 325 mg DAILY YFN Administration Gabapentin 300 mg 10/29/25 06:00 10/29/25 06:56 Gabapentin 300 Mg Capsule PO 300 mg Q8HR YFN Administration Meropenem 2 gm/ Sodium 140 mls @ 280 mls/hr 10/29/25 08:00 10/29/25 09:02 Chloride IVPB 280 mls/hr Q8H YFN Administration Levothyroxine Sodium 112 mcg 10/29/25 06:30 10/29/25 06:56 Levothyroxine Sodium 112 Mcg Tablet PO 112 mcg DAILY@0630 YFN Administration Levothyroxine Sodium 25 mcg 10/29/25 06:30 10/29/25 06:56 Levothyroxine Sodium 25 Mcg Tablet PO 25 mcg DAILY@0630 YFN Administration Methylprednisolone Sodium Succinate 80 mg 10/28/25 22:05 10/29/25 06:56 Methylprednisolone Sod Succ 125 Mg Vial IV PUSH 80 mg Q8HR YFN Administration Miconazole Nitrate 1 applic 10/28/25 21:30 10/29/25 08:27 Miconazole Nitrate 2% Cream 30 Gm Tube TOPICAL 1 applic Q12HR YFN Administration Miscellaneous Information 1 each 10/28/25 00:01 10/29/25 00:02 Please Add Site Of Application For Miconazole XX 11/27/25 00:00 1 each CLARIFY YFN Administration Montelukast Sodium 10 mg 10/29/25 21:00 Montelukast Sodium 10 Mg Tablet PO HS YFN Perflutren Lipid Microsphere 0 ml 10/28/25 22:02 Perflutren Lipid Microspheres 1.5 Ml Vial Diluted To 10 Ml Total Volume IV PUSH 10/31/25 22:02 ONCE PRN adequate visualization Protocol Radiology Results: ITS Impressions Chest X-Ray 10/28/25 18:59 Impression: CHF Chest CTA 10/29/25 07:14 IMPRESSION: 1. No pulmonary embolus. 2. Mild pulmonary edema. Labs Labs: Laboratory Results - last 24 hr 10/28/25 10/28/25 10/28/25 18:25 18:35 18:46 WBC 9.4 RBC 4.29 Hgb 12.3 Hct 44.1 MCV 102.8 H MCH 28.7 MCHC 27.9 L RDW 14.7 H Plt Count 243 MPV 9.4 Immature Gran % (Auto) 2.3 H Neut % (Auto) 72.6 Lymph % (Auto) 14.4 L [place] % (Auto) 5.7 Eos % (Auto) 4.6 H Baso % (Auto) 0.4 Lymph # (Auto) 1.36 [place] # (Auto) 0.5 Eos # (Auto) 0.4 H Baso # (Auto) 0.0 Abs Immat Gran (auto) 0.22 H Absolute Neuts (auto) 6.8 H Absolute Nucleated RBC 0.000 Band Neutrophils % Not Reportable Nucleated RBC % 0.0 Platelet Estimate Adequate Anisocytosis 1+ Stomatocytes Schistocytes None seen Puncture Site Right radial ABG pH 7.148 L* ABG pCO2 127.1 H* ABG pO2 83.4 ABG PO2/FiO2 Ratio 2.09 ABG HCO3 43.1 H ABG O2 Saturation 91.6 L ABG O2 Content 17.1 ABG Base Excess 9.6 A-a Gradient 55.6 Oxyhemoglobin 93.9 Carboxyhemoglobin Methemoglobin Reduced Hemoglobin Total Hemoglobin 12.9 O2 Delivery Device Bipap O2 Liters/Min Not Reportable Vent Rate FiO2 40 Expiratory Pressure 8 Inspiratory Pressure 15 Sodium 140 Potassium 5.3 H Chloride 97 L Carbon Dioxide > 40 H Anion Gap 5.3 BUN 34 H D Creatinine 1.16 H Estim Creat Clear Calc Not Reportable Estimated GFR 46 L Glucose 109 Lactic Acid 0.8 Calcium 8.8 Magnesium Total Bilirubin 0.5 AST 26 ALT 10 Alkaline Phosphatase 81 NT-Pro-B Natriuret Pep 389 H Total Protein 7.5 Albumin 3.9 TSH 2.870 Urine Color Yellow Urine Appearance Turbid H Urine pH 7.0 Ur Specific Smock 1.018 Urine Protein 3+ H Urine Glucose (UA) Negative Urine Ketones Negative Ur Blood (Man) Non-hemolyzed trace H Urine Nitrate Negative Urine Bilirubin Negative Urine Urobilinogen 0.2 Add Ur Microanalysis Reviewed Leukocyte Esterase Rfl 2+ H Urine RBC 0-2 Urine WBC >100 H Urine WBC Clumps Present H Ur Squamous Epith Cells None seen Urine Bacteria 4+ Urine Casts >20 Urine Opiates Screen Negative Urine Methadone Screen Negative Ur Barbiturates Screen Negative Ur Phencyclidine Scrn Negative Ur Amphetamine Screen Negative U Benzodiazepines Scrn Negative Urine Cocaine Screen Negative U Cannabinoids Screen Negative Influenza A (RT-PCR) Influenza B (RT-PCR) RSV (RT-PCR) SARS-CoV-2 RNA (RT-PCR) 10/28/25 10/29/25 10/29/25 22:53 03:41 04:49 WBC 10.8 H RBC 4.11 L Hgb 11.8 L Hct 41.5 MCV 101.0 H MCH 28.7 MCHC 28.4 L RDW 14.6 H Plt Count 234 MPV 9.6 Immature Gran % (Auto) 5.1 H Neut % (Auto) 90.1 H Lymph % (Auto) 3.2 L [place] % (Auto) 1.1 L Eos % (Auto) 0.3 Baso % (Auto) 0.2 Lymph # (Auto) 0.34 L [place] # (Auto) 0.1 Eos # (Auto) 0.0 Baso # (Auto) 0.0 Abs Immat Gran (auto) 0.55 H Absolute Neuts (auto) 9.7 H Absolute Nucleated RBC 0.000 Band Neutrophils % Not Reportable Nucleated RBC % 0.0 Platelet Estimate Adequate Anisocytosis 1+ Stomatocytes Occasional Schistocytes None seen Puncture Site Right radial ABG pH 7.396 ABG pCO2 70.8 H* ABG pO2 67.8 L ABG PO2/FiO2 Ratio 2.26 ABG HCO3 42.5 H ABG O2 Saturation 92.7 L ABG O2 Content 16.4 ABG Base Excess 14.5 A-a Gradient 62.9 Oxyhemoglobin 93.2 Carboxyhemoglobin 1.0 Methemoglobin 0.1 Reduced Hemoglobin 5.7 H Total Hemoglobin 12.5 O2 Delivery Device Bipap O2 Liters/Min Not Reportable Vent Rate 4 FiO2 30 Expiratory Pressure Inspiratory Pressure Sodium 139 141 Potassium 4.8 4.4 Chloride 97 L 95 L Carbon Dioxide > 40 H 34 H Anion Gap 12 BUN 34 H 32 H Creatinine 1.06 H 1.08 H Estim Creat Clear Calc Not Reportable 58 Estimated GFR 51 L 50 L Glucose 129 H 144 H Lactic Acid Calcium 8.6 9.0 Magnesium 1.6 Total Bilirubin AST ALT Alkaline Phosphatase NT-Pro-B Natriuret Pep Total Protein Albumin TSH Urine Color Urine Appearance Urine pH Ur Specific Smock Urine Protein Urine Glucose (UA) Urine Ketones Ur Blood (Man) Urine Nitrate Urine Bilirubin Urine Urobilinogen Add Ur Microanalysis Leukocyte Esterase Rfl Urine RBC Urine WBC Urine WBC Clumps Ur Squamous Epith Cells Urine Bacteria Urine Casts Urine Opiates Screen Urine Methadone Screen Ur Barbiturates Screen Ur Phencyclidine Scrn Ur Amphetamine Screen U Benzodiazepines Scrn Urine Cocaine Screen U Cannabinoids Screen Influenza A (RT-PCR) Negative Influenza B (RT-PCR) Negative RSV (RT-PCR) Negative SARS-CoV-2 RNA (RT-PCR) Negative
--- NOTE | 2025-10-29 11:25 | P.CDI_ITS ---
CDI Query Clarification Request Patient with a BMI of 54.6 please provide a diagnosis to accompany this finding: * Overweight * Obesity * Morbid Obesity * Other/Unknown <Yolanda Yu RN - Last Filed: 10/29/25 11:26> Clarified Diagnosis Clarified Diagnosis: BMI 54.6 would classify patient as morbidly obese <Raffi Hodgson PA-C - Last Filed: 10/29/25 12:27>
--- NOTE | 2025-10-29 12:00 | PC.NURSE ---
pt wob increased, called resp therapy to reapply bipap
[2025-10-29] MEDS: PERFLUTREN LIPID MICROSPHERES 1.5 ML VIAL DILUTED TO 10 ML TOTAL VOLUME IV PUSH (15:13)
--- NOTE | 2025-10-29 15:13 | IVDEFINITY ---
Prior to administration of IV Definity the patient was educated on the risks and benefits of the imaging enhancing agent including potential adverse side effects. The patient verbalized understanding. Allergies were verified. No exclusion criteria were identified and at least one of the following inclusion criteria were met: 1) physician request, 2) patient technically difficult to image (per the [place] [employer] guidelines of two or more segments not discernable within the apical view), or 3) questionable left ventricular function. ?
--- NOTE | 2025-10-29 16:10 | PCOTNOTE ---
Attempted to see pt for OT evaluation however pt had just gotten back to bed and declines further activity at this time.
[2025-10-29] MEDS: MONTELUKAST SODIUM 10 MG TABLET PO (20:02)
[2025-10-30] VITALS (19 sets, daily range): BP systolic 139–153; BP diastolic 55–87; PULSE 32–105; RESP 18–32; TEMP 36.3–36.8; O2SAT 92–98
[2025-10-30] MEDS: MEROPENEM 2 GM in SODIUM CHLORIDE 0.9% IV 100 ML IVPB (01:16)
[2025-10-30] MEDS: IPRATROPIUM 0.5 MG/ALBUTEROL SULFATE 2.5 MG (BASE) AMPUL.NEB 3 ML INHALATION ×2 (02:02→08:18)
[2025-10-30] MEDS: LEVOTHYROXINE SODIUM 112 MCG TABLET PO (05:51)
[2025-10-30] MEDS: GABAPENTIN 300 MG CAPSULE PO ×3 (05:51→20:43)
[2025-10-30] MEDS: MEROPENEM 1 GM in SODIUM CHLORIDE 0.9% IV 100 ML 200 ML IVPB ×3 (05:51→20:44)
[2025-10-30] MEDS: LEVOTHYROXINE SODIUM 25 MCG TABLET PO (05:52)
[2025-10-30] MEDS: ERGOCALCIFEROL (VITAMIN D2) 1,250 MCG (50,000 UNITS) CAPSULE 1250 MCG PO (08:58)
[2025-10-30] MEDS: FUROSEMIDE 40 MG TABLET PO (08:58)
[2025-10-30] MEDS: FERROUS SULFATE 325 MG TABLET BY MOUTH (08:58)
[2025-10-30] MEDS: ATORVASTATIN 20 MG TABLET PO (08:58)
[2025-10-30] MEDS: MICONAZOLE NITRATE 2% CREAM 30 GM TUBE 1 APPLIC TOPICAL ×2 (08:59→20:44)
--- NOTE | 2025-10-30 09:00 | P.PNIM_ITS ---
Assessment and Plan Assessment and Plan (1) Acute hypercapnic respiratory failure: Code(s): J96.02 - Acute respiratory failure with hypercapnia Status: Acute Assessment and Plan: * Symptoms: wheezing, diminished breath sounds, slight crackles * Suspected cause: likely CHF exacerbation * SpO2: Lowest O2 88%, now 100% on 2L * ABG: pH 7.396, CO2 70.8, O2 67.8, HCO3 42.5, O2 saturation 92.7 * EKG: Sinus rhythm w/ 1st D AV block w/ occasional premature Vent complexes * Chest XR: CHF * Chest CTA: No pulmonary embolus. Mild pulmonary edema. * Echo : Overall, appears to have normal biventricular size and systolic function. Technically difficult study with limited views. * BiPAP overnight - 2L NC during the day * Continue duo-nebs (2) CHF exacerbation: Code(s): I50.9 - Heart failure, unspecified Status: Acute Assessment and Plan: * See above * BNP: 389 * Chest XR: CHF * Echo: repeat pending * Monitor vital signs, I&Os, BUN/creatinine, daily weights, neuro status and patient is a fall risk * Monitor serum electrolytes, Keep serum Potassium>4 and serum Magnesium>2 and CBC * Resume Lasix 40mg (3) UTI (urinary tract infection): Code(s): N39.0 - Urinary tract infection, site not specified Status: Acute Assessment and Plan: * UA indicative of infection, w/ WBC * UC obtained on 10/28 * started on Meropenem on 10/28 Subjective Date/time seen: 10/30/25 09:00 Interval history: 69-year-old female with PMH heart failure, obesity, chronic respiratory failure, hypothyroidism, iron deficiency anemia, asthma, gout, HTN w/ recent hospital admission discharged on 09/26/2025 with weakness and recurrent falls as well as VEE and UTI/pneumonia. Comes from [facility]. Noted to have AMS for a few hours. She was drowsy. She had wheezing & SOB. On 2L NC baseline. 10/30/2025 Patient sitting comfortably in bed at time of examination. She states she is feeling much better today than yesterday. She remains on 2L NC which is her baseline. O2 satuation remains in the mid 90s. CBC remains unremarkable, kidney function slightly worse, will need to monitor closely as she is being diuresed with 40mg PO lasix. Urine culture still pending - will need to monitor. Remains afebrile without leukocytosis. Review of Systems Review of Systems: All systems reviewed & are unremarkable except as noted in HPI and below Exam Const: General: comfortable and no acute distress Other: A&O x3 Eyes: Pupils: Equal, round and reactive pupils present Neck: Neck: supple Resp: Auscultation: crackles, wheezes and diminished lung sounds Cardio: Rate: regular rate Rhythm: regular rhythm Heart sounds: no gallops GI: Inspection: non-distended : Other: Intertriginous dermatitis Neuro: Cranial nerves: Yes Equal, round and reactive pupils present Motor exam (neuro): 5/5 motor strength present throughout Extrem: Other: Lipodermatosclerosis bilateral lower extremities with minimal pitting edema Objective Data Vital Signs Vital Signs: Vital Signs - 24 hr 10/29/25 10:00 10/29/25 11:01 10/29/25 12:00 Temperature 98.6 F Pulse Rate 105 H 107 H Respiratory Rate 42 H Blood Pressure 152/60 H Pulse Oximetry 93 Oxygen Delivery Nasal Cannula Oxygen Flow Rate 2 Fraction of Inspired Oxygen 10/29/25 12:00 10/29/25 12:00 10/29/25 12:11 Temperature Pulse Rate 98 112 H 91 Respiratory Rate 20 24 H Blood Pressure Pulse Oximetry 95 92 Oxygen Delivery Nasal Cannula Nasal Cannula Oxygen Flow Rate 3 2 Fraction of Inspired Oxygen 10/29/25 14:00 10/29/25 14:11 10/29/25 14:11 Temperature Pulse Rate 102 H 101 H 101 H Respiratory Rate 20 20 Blood Pressure Pulse Oximetry 95 Oxygen Delivery Nasal Cannula Oxygen Flow Rate 2 Fraction of Inspired Oxygen 10/29/25 14:24 10/29/25 16:00 10/29/25 16:00 Temperature 97.6 F Pulse Rate 106 H 110 H 105 H Respiratory Rate 20 24 H 20 Blood Pressure 147/53 H Pulse Oximetry 98 94 Oxygen Delivery Nasal Cannula Oxygen Flow Rate 3 Fraction of Inspired Oxygen 10/29/25 16:00 10/29/25 18:00 10/29/25 20:00 Temperature 98.2 F Pulse Rate 105 H 108 H 100 Respiratory Rate 20 Blood Pressure 135/56 L Pulse Oximetry 91 Oxygen Delivery Oxygen Flow Rate Fraction of Inspired Oxygen 10/29/25 20:00 10/29/25 20:00 10/29/25 20:29 Temperature Pulse Rate 101 H 98 Respiratory Rate 20 Blood Pressure Pulse Oximetry 94 Oxygen Delivery Nasal Cannula Oxygen Flow Rate 2 Fraction of Inspired Oxygen 10/29/25 20:33 10/29/25 20:35 10/29/25 22:00 Temperature Pulse Rate 90 96 Respiratory Rate 20 Blood Pressure Pulse Oximetry 94 Oxygen Delivery Nasal Cannula Oxygen Flow Rate 2 Fraction of Inspired Oxygen 10/29/25 22:02 10/30/25 00:00 10/30/25 00:00 Temperature 98.3 F Pulse Rate 87 32 L 76 Respiratory Rate 31 H 32 H 20 Blood Pressure 141/61 H Pulse Oximetry 93 94 94 Oxygen Delivery BiPAP BiPAP Oxygen Flow Rate Fraction of Inspired Oxygen 30 10/30/25 00:00 10/30/25 02:00 10/30/25 02:02 Temperature Pulse Rate 85 82 79 Respiratory Rate 22 H Blood Pressure Pulse Oximetry Oxygen Delivery Oxygen Flow Rate Fraction of Inspired Oxygen 10/30/25 02:03 10/30/25 02:10 10/30/25 04:00 Temperature Pulse Rate 79 81 81 Respiratory Rate 22 H 23 H 23 H Blood Pressure Pulse Oximetry 94 94 Oxygen Delivery BiPAP BiPAP Oxygen Flow Rate Fraction of Inspired Oxygen 30 10/30/25 04:00 10/30/25 04:00 10/30/25 06:00 Temperature 97.8 F Pulse Rate 86 89 75 Respiratory Rate 22 H Blood Pressure 141/60 H Pulse Oximetry 97 Oxygen Delivery Oxygen Flow Rate Fraction of Inspired Oxygen 10/30/25 08:00 10/30/25 08:19 10/30/25 08:19 Temperature 97.4 F L Pulse Rate 96 95 96 Respiratory Rate 18 20 20 Blood Pressure 152/64 H Pulse Oximetry 97 95 Oxygen Delivery Nasal Cannula Oxygen Flow Rate 2 Fraction of Inspired Oxygen 10/30/25 08:25 Temperature Pulse Rate 105 H Respiratory Rate 20 Blood Pressure Pulse Oximetry Oxygen Delivery Oxygen Flow Rate Fraction of Inspired Oxygen Intake/Output Intake/Output: Intake & Output 10/27/25 10/28/25 10/29/25 10/30/25 23:59 23:59 23:59 23:59 Intake Total 200 1417 495 Output Total 2900 400 Balance 200 -1483 95 Meds/Results Medications: Active Medications Generic Name Dose Route Start Last Admin Trade Name Freq PRN Reason Stop Dose Admin Acetaminophen 1,000 mg 10/29/25 10:06 Acetaminophen 500 Mg Tablet PO Q6H PRN fever or pain Albuterol/Ipratropium 3 ml 10/29/25 02:00 10/30/25 08:18 Ipratropium 0.5 Mg/Albuterol Sulfate 2.5 Mg (Base) Ampul.Neb 3 Ml INHALATION 3 ml Q6HRT YFN Administration Allopurinol 100 mg 10/29/25 08:00 10/30/25 08:58 Allopurinol 100 Mg Tablet PO 100 mg DAILY@0800 YFN Administration Atorvastatin Calcium 20 mg 10/29/25 09:00 10/30/25 08:58 Atorvastatin 20 Mg Tablet PO 20 mg DAILY YFN Administration Ergocalciferol 1,250 mcg 10/30/25 09:00 10/30/25 08:58 Ergocalciferol (Vitamin D2) 1,250 Mcg (50,000 Units) Capsule PO 1,250 mcg WEEKLY YFN Administration Ferrous Sulfate 325 mg 10/29/25 09:00 10/30/25 08:58 Ferrous Sulfate 325 Mg Tablet BY MOUTH 325 mg DAILY YFN Administration Furosemide 40 mg 10/30/25 09:00 10/30/25 08:58 Furosemide 40 Mg Tablet PO 40 mg DAILY YFN Administration Gabapentin 300 mg 10/29/25 06:00 10/30/25 05:51 Gabapentin 300 Mg Capsule PO 300 mg Q8HR YFN Administration Meropenem 1 gm/ Sodium 100 mls @ 200 mls/hr 10/30/25 07:00 10/30/25 05:51 Chloride IVPB 200 mls/hr Q8HR YFN Administration Levothyroxine Sodium 112 mcg 10/29/25 06:30 10/30/25 05:51 Levothyroxine Sodium 112 Mcg Tablet PO 112 mcg DAILY@0630 YFN Administration Levothyroxine Sodium 25 mcg 10/29/25 06:30 10/30/25 05:52 Levothyroxine Sodium 25 Mcg Tablet PO 25 mcg DAILY@0630 YFN Administration Methylprednisolone Sodium Succinate 80 mg 10/28/25 22:05 10/30/25 05:51 Methylprednisolone Sod Succ 125 Mg Vial IV PUSH 80 mg Q8HR YFN Administration Miconazole Nitrate 1 applic 10/28/25 21:30 10/30/25 08:59 Miconazole Nitrate 2% Cream 30 Gm Tube TOPICAL 1 applic Q12HR YFN Administration Montelukast Sodium 10 mg 10/29/25 21:00 10/29/25 20:02 Montelukast Sodium 10 Mg Tablet PO 10 mg HS YFN Administration Senna/Docusate Sodium 1 tab 10/29/25 21:00 10/29/25 20:02 Senna/Docusate Sodium Tablet PO Not Given HS YFN Radiology Results: ITS Impressions Chest X-Ray 10/28/25 18:59 Impression: CHF Chest CTA 10/29/25 07:14 IMPRESSION: 1. No pulmonary embolus. 2. Mild pulmonary edema. Labs Labs: Laboratory Results - last 24 hr 10/29/25 04:49 Minute Volume Not Reportable Vent Mode Not Reportable Expiratory Pressure 8 Tidal Volume Not Reportable PEEP Not Reportable Inspiratory Pressure 15 Peak Inspir Pressure Not Reportable Pressure Support Not Reportable
[2025-10-30 09:11] LABS: Hematocrit 41.1 % (37.0-47.0); Hemoglobin 12.1 g/dL (12.0-15.0); Immature Granulocyte Percent A 0.9 % (0-0.5); Lymphocytes Absolute Auto 0.35 K/mm3 (0.9-3.2); Mean Corpuscular HGB Conc 29.4 g/dl (32-36); Mean Corpuscular Hemoglobin 28.5 pg (26-34); Mean Corpuscular Volume 96.9 fl (80-100); Nucleated Red Blood Cells Absolute Auto 0.000 K/mm3 (0.0-0.012); Nucleated Red Blood Cells Perc 0.0 % (0.0-0.2); Platelet Count Result 230 k/mm3 (150-375); Red Blood Count 4.24 M/mm3 (4.2-5.4); White Blood Count 9.9 K/mm3 (4.5-10.0)
[2025-10-30 09:39] LABS: Alanine Aminotransferase 19 U/L (6-35); Albumin Level 3.6 g/dL (3.5-5.1); Alkaline Phosphatase 81 U/L (38-126); Aspartate Amino Transferase 21 U/L (14-36); Bilirubin,Total 0.2 mg/dL (0.2-1.3); Blood Urea Nitrogen 44 mg/dL (7-17); Calcium 9.3 mg/dL (8.4-10.2); Chloride 92 mmol/L (98-107); Estimated CRCL calculation 55 ml/min; Estimated Glomerular Filt Rate 46; Glucose 265 mg/dL (65-110); Potassium 4.7 mmol/L (3.4-5.0); Sodium 137 mmol/L (137-145); Total Protein 6.7 g/dL (6.3-8.2)
[2025-10-30 10:04] LABS: Anion Gap 7 mmol/L (4-12); Carbon Dioxide 38 mmol/L (22-30)
[2025-10-30 10:07] LABS: Hypochromasia 1+; Schistocytes None Seen
[2025-10-30] MEDS: MONTELUKAST SODIUM 10 MG TABLET PO (20:43)
[2025-10-31] VITALS (16 sets, daily range): BP systolic 135–154; BP diastolic 49–77; PULSE 73–95; RESP 20–28; TEMP 36.4–36.8; O2SAT 93–98
[2025-10-31 04:41] LABS: Hematocrit 37.3 % (37.0-47.0); Hemoglobin 10.9 g/dL (12.0-15.0); Immature Granulocyte Percent A 0.6 % (0-0.5); Lymphocytes Absolute Auto 0.59 K/mm3 (0.9-3.2); Mean Corpuscular HGB Conc 29.2 g/dl (32-36); Mean Corpuscular Hemoglobin 28.0 pg (26-34); Mean Corpuscular Volume 95.9 fl (80-100); Nucleated Red Blood Cells Absolute Auto 0.000 K/mm3 (0.0-0.012); Nucleated Red Blood Cells Perc 0.0 % (0.0-0.2); Platelet Count Result 251 k/mm3 (150-375); Red Blood Count 3.89 M/mm3 (4.2-5.4); White Blood Count 11.4 K/mm3 (4.5-10.0)
[2025-10-31 05:06] LABS: Alanine Aminotransferase 9 U/L (6-35); Albumin Level 3.4 g/dL (3.5-5.1); Alkaline Phosphatase 69 U/L (38-126); Anion Gap 1 mmol/L (4-12); Aspartate Amino Transferase 18 U/L (14-36); Bilirubin,Total 0.3 mg/dL (0.2-1.3); Blood Urea Nitrogen 52 mg/dL (7-17); Calcium 8.7 mg/dL (8.4-10.2); Carbon Dioxide 37 mmol/L (22-30); Chloride 96 mmol/L (98-107); Estimated CRCL calculation 56 ml/min; Estimated Glomerular Filt Rate 47; Glucose 123 mg/dL (65-110); Potassium 4.9 mmol/L (3.4-5.0); Sodium 134 mmol/L (137-145); Total Protein 6.3 g/dL (6.3-8.2)
[2025-10-31 05:22] LABS: Anisocytosis 1+; Hypochromasia 1+
[2025-10-31 05:23] LABS: Schistocytes None Seen
[2025-10-31] MEDS: MEROPENEM 1 GM in SODIUM CHLORIDE 0.9% IV 100 ML 200 ML IVPB ×3 (05:39→20:46)
[2025-10-31] MEDS: LEVOTHYROXINE SODIUM 25 MCG TABLET PO (05:40)
[2025-10-31] MEDS: GABAPENTIN 300 MG CAPSULE PO ×3 (05:40→20:45)
[2025-10-31] MEDS: LEVOTHYROXINE SODIUM 112 MCG TABLET PO (05:40)
--- NOTE | 2025-10-31 08:41 | PM.IMPN2 ---
Assessment and Plan Assessment and Plan (1) Acute hypercapnic respiratory failure: Code(s): J96.02 - Acute respiratory failure with hypercapnia Status: Acute Assessment and Plan: Symptoms: wheezing, diminished breath sounds, slight crackles Suspected cause: likely CHF exacerbation SpO2: Lowest O2 88%, now 100% on 2L ABG: pH 7.396, CO2 70.8, O2 67.8, HCO3 42.5, O2 saturation 92.7 EKG: Sinus rhythm w/ 1st D AV block w/ occasional premature Vent complexes Chest XR: CHF Chest CTA: No pulmonary embolus. Mild pulmonary edema. Echo : Overall, appears to have normal biventricular size and systolic function. Technically difficult study with limited views. BiPAP overnight - 2L NC during the day Continue duo-nebs (2) CHF exacerbation: Code(s): I50.9 - Heart failure, unspecified Status: Acute Assessment and Plan: See above BNP: 389 Chest XR: CHF Echo: repeat pending Monitor vital signs, I&Os, BUN/creatinine, daily weights, neuro status and patient is a fall risk Monitor serum electrolytes, Keep serum Potassium>4 and serum Magnesium>2 and CBC Resume Lasix 40mg (3) UTI (urinary tract infection): Code(s): N39.0 - Urinary tract infection, site not specified Status: Acute Assessment and Plan: UA indicative of infection, w/ WBC UC obtained on 10/28 started on Meropenem on 10/28 Subjective Date/time seen: 10/31/25 08:41 Interval history: 69-year-old female with PMH heart failure, obesity, chronic respiratory failure, hypothyroidism, iron deficiency anemia, asthma, gout, HTN w/ recent hospital admission discharged on 09/26/2025 with weakness and recurrent falls as well as VEE and UTI/pneumonia. Comes from [facility]. Noted to have AMS for a few hours. She was drowsy. She had wheezing & SOB. On 2L NC baseline. 10/31/2025 Patient sitting comfortably in bed at time of examination. Review of Systems Review of Systems: All systems reviewed & are unremarkable except as noted in HPI and below Exam Const: General: comfortable and no acute distress Other: A&O x3 Eyes: Pupils: Equal, round and reactive pupils present Neck: Neck: supple Resp: Auscultation: crackles, wheezes and diminished lung sounds Cardio: Rate: regular rate Rhythm: regular rhythm Heart sounds: no gallops GI: Inspection: non-distended : Other: Intertriginous dermatitis Neuro: Cranial nerves: Yes Equal, round and reactive pupils present Motor exam (neuro): 5/5 motor strength present throughout Extrem: Other: Lipodermatosclerosis bilateral lower extremities with minimal pitting edema Objective Data Vital Signs Vital Signs: Vital Signs - 24 hr 10/30/25 09:34 10/30/25 10:00 10/30/25 12:00 Temperature 97.9 F Pulse Rate 98 88 Respiratory Rate 18 Blood Pressure 150/55 H Pulse Oximetry 98 Oxygen Delivery Nasal Cannula Oxygen Flow Rate 2 Fraction of Inspired Oxygen 10/30/25 12:00 10/30/25 12:00 10/30/25 14:00 Temperature Pulse Rate 99 100 Respiratory Rate Blood Pressure Pulse Oximetry 96 Oxygen Delivery Nasal Cannula Oxygen Flow Rate 2 Fraction of Inspired Oxygen 10/30/25 16:00 10/30/25 16:00 10/30/25 16:00 Temperature 97.6 F Pulse Rate 92 79 Respiratory Rate 22 H Blood Pressure 153/70 H Pulse Oximetry 96 97 Oxygen Delivery Nasal Cannula Oxygen Flow Rate 2 Fraction of Inspired Oxygen 10/30/25 17:41 10/30/25 19:19 10/30/25 20:00 Temperature 98.3 F Pulse Rate 95 98 98 Respiratory Rate 22 H 22 H Blood Pressure 139/87 Pulse Oximetry 92 92 Oxygen Delivery Nasal Cannula Oxygen Flow Rate 2 Fraction of Inspired Oxygen 10/30/25 20:00 10/30/25 22:00 10/30/25 22:48 Temperature Pulse Rate 97 75 77 Respiratory Rate 24 H Blood Pressure Pulse Oximetry 95 Oxygen Delivery BiPAP Oxygen Flow Rate Fraction of Inspired Oxygen 10/31/25 00:00 10/31/25 00:00 10/31/25 00:27 Temperature 98.1 F Pulse Rate 77 81 77 Respiratory Rate 24 H 28 H Blood Pressure 141/49 H Pulse Oximetry 95 95 Oxygen Delivery BiPAP Oxygen Flow Rate Fraction of Inspired Oxygen 30 10/31/25 02:00 10/31/25 04:00 10/31/25 04:00 Temperature Pulse Rate 74 76 76 Respiratory Rate 28 H Blood Pressure Pulse Oximetry 95 Oxygen Delivery BiPAP Oxygen Flow Rate Fraction of Inspired Oxygen 30 10/31/25 04:15 10/31/25 04:35 10/31/25 06:00 Temperature 98.3 F Pulse Rate 73 86 73 Respiratory Rate 25 H 22 H Blood Pressure 135/63 Pulse Oximetry 95 98 Oxygen Delivery BiPAP Oxygen Flow Rate Fraction of Inspired Oxygen 10/31/25 07:45 Temperature 98.2 F Pulse Rate 88 Respiratory Rate 20 Blood Pressure 154/77 H Pulse Oximetry 95 Oxygen Delivery Oxygen Flow Rate Fraction of Inspired Oxygen Intake/Output Intake/Output: Intake & Output 10/28/25 10/29/25 10/30/25 10/31/25 23:59 23:59 23:59 23:59 Intake Total 200 1417 2125 Output Total 2900 925 600 Balance 200 -1483 1200 -600 Meds/Results Medications: Active Medications Generic Name Dose Route Start Last Admin Trade Name Freq PRN Reason Stop Dose Admin Acetaminophen 1,000 mg 10/29/25 10:06 Acetaminophen 500 Mg Tablet PO Q6H PRN fever or pain Albuterol/Ipratropium 3 ml 10/30/25 11:06 Ipratropium 0.5 Mg/Albuterol Sulfate 2.5 Mg (Base) Ampul.Neb 3 Ml INHALATION Q6HRT PRN Wheezing Allopurinol 100 mg 10/29/25 08:00 10/30/25 08:58 Allopurinol 100 Mg Tablet PO 100 mg DAILY@0800 YFN Administration Atorvastatin Calcium 20 mg 10/29/25 09:00 10/30/25 08:58 Atorvastatin 20 Mg Tablet PO 20 mg DAILY YFN Administration Ergocalciferol 1,250 mcg 10/30/25 09:00 10/30/25 08:58 Ergocalciferol (Vitamin D2) 1,250 Mcg (50,000 Units) Capsule PO 1,250 mcg WEEKLY YFN Administration Ferrous Sulfate 325 mg 10/29/25 09:00 10/30/25 08:58 Ferrous Sulfate 325 Mg Tablet BY MOUTH 325 mg DAILY YFN Administration Furosemide 40 mg 10/30/25 09:00 10/30/25 08:58 Furosemide 40 Mg Tablet PO 40 mg DAILY YFN Administration Gabapentin 300 mg 10/29/25 06:00 10/31/25 05:40 Gabapentin 300 Mg Capsule PO 300 mg Q8HR YFN Administration Meropenem 1 gm/ Sodium 100 mls @ 200 mls/hr 10/30/25 07:00 10/31/25 05:39 Chloride IVPB 200 mls/hr Q8HR YFN Administration Levothyroxine Sodium 112 mcg 10/29/25 06:30 10/31/25 05:40 Levothyroxine Sodium 112 Mcg Tablet PO 112 mcg DAILY@0630 YFN Administration Levothyroxine Sodium 25 mcg 10/29/25 06:30 10/31/25 05:40 Levothyroxine Sodium 25 Mcg Tablet PO 25 mcg DAILY@0630 YFN Administration Methylprednisolone Sodium Succinate 80 mg 10/28/25 22:05 10/31/25 05:39 Methylprednisolone Sod Succ 125 Mg Vial IV PUSH 80 mg Q8HR YFN Administration Miconazole Nitrate 1 applic 10/28/25 21:30 10/30/25 20:44 Miconazole Nitrate 2% Cream 30 Gm Tube TOPICAL 1 applic Q12HR YFN Administration Montelukast Sodium 10 mg 10/29/25 21:00 10/30/25 20:43 Montelukast Sodium 10 Mg Tablet PO 10 mg HS [facility] Administration Senna/Docusate Sodium 1 tab 10/29/25 21:00 10/30/25 20:44 Senna/Docusate Sodium Tablet PO Not Given HS [facility] Radiology Results: ITS Impressions Chest X-Ray 10/28/25 18:59 Impression: CHF Chest CTA 10/29/25 07:14 IMPRESSION: 1. No pulmonary embolus. 2. Mild pulmonary edema. Labs Labs: Laboratory Results - last 24 hr 10/28/25 10/30/25 10/31/25 22:53 09:06 03:33 WBC 9.9 11.4 H RBC 4.24 3.89 L Hgb 12.1 10.9 L Hct 41.1 37.3 MCV 96.9 95.9 MCH 28.5 28.0 MCHC 29.4 L 29.2 L RDW 15.0 H 15.1 H Plt Count 230 251 MPV 9.5 9.9 Immature Gran % (Auto) 0.9 H 0.6 H Neut % (Auto) 93.7 H 88.2 H Lymph % (Auto) 3.5 L 5.2 L [place] % (Auto) 1.8 L 5.9 Eos % (Auto) 0.0 0.0 Baso % (Auto) 0.1 L 0.1 L Lymph # (Auto) 0.35 L 0.59 L [place] # (Auto) 0.2 0.7 H Eos # (Auto) 0.0 0.0 Baso # (Auto) 0.0 0.0 Abs Immat Gran (auto) 0.09 H 0.07 H Absolute Neuts (auto) 9.3 H 10.0 H Absolute Nucleated RBC 0.000 0.000 Band Neutrophils % Not Reportable Not Reportable Nucleated RBC % 0.0 0.0 Platelet Estimate Adequate Adequate Hypochromasia 1+ 1+ Anisocytosis 1+ Schistocytes None seen None seen Sodium 137 134 L Potassium 4.7 4.9 Chloride 92 L 96 L Carbon Dioxide 38 H 37 H Anion Gap 7 1 L BUN 44 H D 52 H Creatinine 1.17 H 1.15 H Estim Creat Clear Calc 55 56 Estimated GFR 46 L 47 L Glucose 265 H 123 H Calcium 9.3 8.7 Total Bilirubin 0.2 0.3 AST 21 18 ALT 19 9 Alkaline Phosphatase 81 69 Total Protein 6.7 6.3 Albumin 3.6 3.4 L Chlamy pneumoniae PCR Not detected Adenovirus (PCR) Not detected B. pertussis DNA (PCR) Not detected B.parapertussis DNA PCR Not detected Coronavirus OC43 (PCR) Not detected Coronavirus HKU1 (PCR) Not detected Coronavirus 229E (PCR) Not detected Coronavirus NL63 (PCR) Not detected Human Metapneumovir PCR Not detected Influenza A (H1) PCR Not detected Influ A (H1/09) PCR Not detected Influenza A (H3) PCR Not detected Influenza Type A (PCR) Not detected Influenza Type B (PCR) Not detected M. pneumoniae (PCR) Not detected Parainfluenza 1 (PCR) Not detected Parainfluenza 2 (PCR) Not detected Parainfluenza 3 (PCR) Not detected Parainfluenza 4 (PCR) Not detected RSV (PCR) Not detected Entero/Rhino (PCR) Not detected SARS-CoV-2 (PCR) Not detected
[2025-10-31] MEDS: FERROUS SULFATE 325 MG TABLET BY MOUTH (09:06)
[2025-10-31] MEDS: ATORVASTATIN 20 MG TABLET PO (09:06)
[2025-10-31] MEDS: FUROSEMIDE 40 MG TABLET PO (09:06)
[2025-10-31] MEDS: MICONAZOLE NITRATE 2% CREAM 30 GM TUBE 1 APPLIC TOPICAL ×2 (09:07→20:46)
--- NOTE | 2025-10-31 11:34 | P.DS_ITS ---
DS: Admitting Diagnosis Discharge Date 10/31/2025 Admitting Diagnosis VEE , Acute hypercapnic respiratory failure DS: Discharge Diagnosis Discharge Diagnosis (1) Acute hypercapnic respiratory failure: Code(s): J96.02 - Acute respiratory failure with hypercapnia Status: Acute (2) CHF exacerbation: Code(s): I50.9 - Heart failure, unspecified Status: Acute (3) UTI (urinary tract infection): Code(s): N39.0 - Urinary tract infection, site not specified Status: Ruled-out DS: Summary Hospital Course Reason for hospitalization: Shortness of breath/altered mental status Hospital Course: The patient is a 69-year-old female with a complex medical history including heart failure, chronic respiratory failure, obesity, hypothyroidism, iron deficiency anemia, asthma, gout, and hypertension. She was recently discharged from [facility] on 09/26/2025 after treatment for weakness, recurrent falls, VEE, and UTI/pneumonia. She presented again on 10/28/2025 from [facility] with acute shortness of breath, altered mental status, and wheezing. On arrival, she was drowsy and hypoxic, requiring escalation from her baseline 2L nasal cannula to BiPAP. Initial evaluation revealed evidence of fluid overload on chest x-ray, acute on chronic hypercapnic respiratory failure (ABG: pH 7.15, pCO2 127, HCO3 43), and urinalysis consistent with UTI. She was started on IV meropenem due to a history of ESBL organisms, and diuresed with IV Lasix for volume overload. EKG showed sinus rhythm without acute ischemia, and echocardiogram demonstrated normal biventricular function with mild concentric LV hypertrophy and no significant valvular disease. During her hospitalization, the patient?s respiratory status improved with BiPAP and bronchodilator therapy (DuoNebs), and she was transitioned back to her baseline 2L nasal cannula as her oxygenation stabilized. She remained afebrile and hemodynamically stable, though she experienced intermittent hypertension managed with antihypertensives. Her renal function showed mild worsening, likely related to diuresis, and was closely monitored. She continued on her home medications with adjustments as needed, including resumption of oral furosemide. The UTI was managed with ongoing meropenem pending final urine culture results. Urine culture resulted negative for any bacterial growth. Will discontinue antibiotics at this time. She also received topical miconazole for intertriginous dermatitis. Throughout her stay, the patient was alert and oriented, with improvement in her mental status and respiratory symptoms. She was maintained on fall precautions and received supportive care including physical and occupational therapy. Intake and output were closely tracked, and daily weights were obtained to guide diuresis. By 10/30/2025, she reported feeling much better, with stable vital signs and oxygen saturations in the mid-90s on 2L nasal cannula. She remained afebrile, without leukocytosis, and her overall clinical status was significantly improved from admission. Patient will be discharged on AVAPS when she arrives back to [facility] with the following instructions: Ordering ventilator for nocturnal and daytime as required. Patient needs an IV for management of acute on chronic hypercarbia respiratory failure due to OHS, home BiPAP is not the best option for the patient. Status at Discharge Functional status at discharge: uses cane/walker Overall status at discharge: patient is back to baseline Time Spent with Patient Time attestation: Total time spent providing and/or coordinating discharge services: 32 Exam Const: General: comfortable and no acute distress Other: A&O x3 HENMT: Face/Nose/Sinus: Normal nares present Mouth: Yes moist mucous membranes Eyes: General: appearance normal, both eyes and all related structures Resp: Effort & Inspection: normal respiratory effort Auscultation: clear to auscultation bilaterally, no crackles, no wheezes and lung sounds not diminished Cardio: Rate: regular rate Rhythm: regular rhythm GI: Inspection: non-distended GI Palp: Yes Soft to palpation Auscultation: normal bowel sounds : Other: Intertriginous dermatitis Extrem: Other: Lipodermatosclerosis bilateral lower extremities with minimal pitting edema DS: Data Data Completed and Pending Labs on day of discharge: Labs from last 24 hours 10/31/25 10/28/25 03:33 22:53 WBC 11.4 H RBC 3.89 L Hgb 10.9 L Hct 37.3 MCV 95.9 MCH 28.0 MCHC 29.2 L RDW 15.1 H Plt Count 251 MPV 9.9 Immature Gran % (Auto) 0.6 H Neut % (Auto) 88.2 H Lymph % (Auto) 5.2 L [place] % (Auto) 5.9 Eos % (Auto) 0.0 Baso % (Auto) 0.1 L Lymph # (Auto) 0.59 L [place] # (Auto) 0.7 H Eos # (Auto) 0.0 Baso # (Auto) 0.0 Abs Immat Gran (auto) 0.07 H Absolute Neuts (auto) 10.0 H Absolute Nucleated RBC 0.000 Band Neutrophils % Not Reportable Nucleated RBC % 0.0 Platelet Estimate Adequate Hypochromasia 1+ Anisocytosis 1+ Schistocytes None seen Sodium 134 L Potassium 4.9 Chloride 96 L Carbon Dioxide 37 H Anion Gap 1 L BUN 52 H Creatinine 1.15 H Estim Creat Clear Calc 56 Estimated GFR 47 L Glucose 123 H Calcium 8.7 Total Bilirubin 0.3 AST 18 ALT 9 Alkaline Phosphatase 69 Total Protein 6.3 Albumin 3.4 L Chlamy pneumoniae PCR Not detected Adenovirus (PCR) Not detected B. pertussis DNA (PCR) Not detected B.parapertussis DNA PCR Not detected Coronavirus OC43 (PCR) Not detected Coronavirus HKU1 (PCR) Not detected Coronavirus 229E (PCR) Not detected Coronavirus NL63 (PCR) Not detected Human Metapneumovir PCR Not detected Influenza A (H1) PCR Not detected Influ A (H1/09) PCR Not detected Influenza A (H3) PCR Not detected Influenza Type A (PCR) Not detected Influenza Type B (PCR) Not detected M. pneumoniae (PCR) Not detected Parainfluenza 1 (PCR) Not detected Parainfluenza 2 (PCR) Not detected Parainfluenza 3 (PCR) Not detected Parainfluenza 4 (PCR) Not detected RSV (PCR) Not detected Entero/Rhino (PCR) Not detected SARS-CoV-2 (PCR) Not detected Discharge Plan Discharge Attending physician on discharge: Stanislav Draper Consulting providers: Raffi Hodgson Discharging Clinician: Raffi Hodgson Anticipated Discharge Date/Time: 10/31/25 11:32 Patient Disposition: SNF Activity: as tolerated Diet: heart healthy Discharge Instructions: Discharge disposition: [facility] Take medications as prescribed You will be set up with AVAPS: Ordering ventilator for nocturnal and daytime as required. Patient needs an IV for management of acute on chronic hypercarbia respiratory failure due to OHS, home BiPAP is not the best option for the patient Monitor blood pressures Take caution while standing, rising, or moving Change positions slowly taking a break between each position change If you standing feel dizzy sit back down and take a break Encouraged to continue with yearly vaccinations Return to the emergency department if you develop sudden shortness of breath, chest pain, nausea, vomiting, upset stomach or intractable diarrhea Return to the emergency department if you develop fever greater than 101.5 Follow-up with the primary care physician within 1-2 weeks Thank you for [facility] for your healthcare needs Patient Instructions: Heart Failure (DC), Urinary Tract Infection in Women (DC), Urinary Tract Infection in Older Adults (DC) Patient Language: Azeri Stand Alone Forms: General Discharge Information Follow-up/Referrals: Ellie,Helen Garcia MD [Primary Care Provider, Unknown] Discharge Medications: Continued furosemide 40 mg tablet 40 mg PO DAILY levothyroxine 137 mcg tablet 137 mcg PO DAILY atorvastatin 20 mg tablet 20 mg PO DAILY allopurinol 100 mg tablet 100 mg PO DAILY ferrous sulfate 325 mg (65 mg iron) tablet 325 mg PO DAILY gabapentin 300 mg capsule 300 mg PO TID montelukast 10 mg tablet 10 mg PO HS sennosides-docusate sodium [Senokot-S] 8.6-50 mg Tablet 1 tablet PO HS Qty: 30 0RF acetaminophen [Tylenol Extra Strength] 500 mg tablet 1,000 mg PO Q6H PRN (Reason: fever or pain) cholecalciferol (vitamin D3) 1,250 mcg (50,000 unit) capsule 1,250 mcg PO WEEKLY Rx Instructions: Pt takes on Tuesdays. miconazole nitrate 2 % cream 1 applic topical BID Rx Instructions: Apply topically to rash in josr-area and skin folds. urea 20 % cream 1 applic topical DAILY Rx Instructions: Apply topically to bilateral legs daily. Date of admission: 10/28/25 20:06 Primary Care Provider: ReidHelen Admitting Provider: Marina Marquez Attending physician on admission: Marina Marquez Condition: Stable
--- NOTE | 2025-10-31 15:03 | PCRCNOTE ---
Home NIV being arranged with Jonah for use at [facility] and home post discharge from SNF.
[2025-10-31] MEDS: MONTELUKAST SODIUM 10 MG TABLET PO (20:45)
[2025-11-01] VITALS: BP 165/79; PULSE 69; RESP 20; TEMP 36.1; O2SAT 97
[2025-11-01 01:07] VITALS: PULSE 75; RESP 16; O2SAT 92
--- NOTE | 2025-11-01 03:33 | PC.NURSE ---
Report called to SALONI Macario. Pt going from 201 to 330 bed 1 at this time. All pt belongings and equipment were taken with pt to room 330 bed 1.
[2025-11-01 06:00] VITALS: BP 157/90; PULSE 70; RESP 18; TEMP 36.3; O2SAT 97
[2025-11-01] MEDS: MEROPENEM 1 GM in SODIUM CHLORIDE 0.9% IV 100 ML 200 ML IVPB (06:16)
[2025-11-01] MEDS: LEVOTHYROXINE SODIUM 25 MCG TABLET PO (06:17)
[2025-11-01] MEDS: GABAPENTIN 300 MG CAPSULE PO (06:17)
[2025-11-01] MEDS: LEVOTHYROXINE SODIUM 112 MCG TABLET PO (06:19)
[2025-11-01 06:25] LABS: Hematocrit 40.2 % (37.0-47.0); Hemoglobin 12.2 g/dL (12.0-15.0); Immature Granulocyte Percent A 0.7 % (0-0.5); Lymphocytes Absolute Auto 0.37 K/mm3 (0.9-3.2); Mean Corpuscular HGB Conc 30.3 g/dl (32-36); Mean Corpuscular Hemoglobin 29.1 pg (26-34); Mean Corpuscular Volume 95.9 fl (80-100); Nucleated Red Blood Cells Absolute Auto 0.000 K/mm3 (0.0-0.012); Nucleated Red Blood Cells Perc 0.0 % (0.0-0.2); Platelet Count Result 254 k/mm3 (150-375); Red Blood Count 4.19 M/mm3 (4.2-5.4); White Blood Count 8.3 K/mm3 (4.5-10.0)
[2025-11-01 07:06] LABS: Alanine Aminotransferase 10 U/L (6-35); Albumin Level 3.3 g/dL (3.5-5.1); Alkaline Phosphatase 70 U/L (38-126); Aspartate Amino Transferase 17 U/L (14-36); Bilirubin,Total 0.4 mg/dL (0.2-1.3); Blood Urea Nitrogen 54 mg/dL (7-17); Calcium 8.9 mg/dL (8.4-10.2); Chloride 94 mmol/L (98-107); Estimated CRCL calculation 63 ml/min; Estimated Glomerular Filt Rate 55; Glucose 141 mg/dL (65-110); Potassium 5.1 mmol/L (3.4-5.0); Sodium 135 mmol/L (137-145); Total Protein 6.0 g/dL (6.3-8.2)
[2025-11-01 07:12] LABS: Anion Gap 2 mmol/L (4-12); Carbon Dioxide 39 mmol/L (22-30)
[2025-11-01] MEDS: ATORVASTATIN 20 MG TABLET PO (09:08)
[2025-11-01] MEDS: FERROUS SULFATE 325 MG TABLET BY MOUTH (09:08)
[2025-11-01] MEDS: FUROSEMIDE 40 MG TABLET PO (09:08)
[2025-11-01 09:17] VITALS: RESP 18; O2SAT 98
[2025-11-01] MEDS: ACETAMINOPHEN 500 MG TABLET 1000 MG PO (09:17)
--- NOTE | 2025-11-01 09:25 | P.DS_ITS ---
DS: Admitting Diagnosis Discharge Date 10/31/2025 Admitting Diagnosis VEE , Acute hypercapnic respiratory failure DS: Discharge Diagnosis Discharge Diagnosis (1) Acute hypercapnic respiratory failure: Code(s): J96.02 - Acute respiratory failure with hypercapnia Status: Acute (2) CHF exacerbation: Code(s): I50.9 - Heart failure, unspecified Status: Acute (3) UTI (urinary tract infection): Code(s): N39.0 - Urinary tract infection, site not specified Status: Ruled-out DS: Summary Hospital Course Reason for hospitalization: Shortness of breath/altered mental status Hospital Course: The patient is a 69-year-old female with a complex medical history including heart failure, chronic respiratory failure, obesity, hypothyroidism, iron deficiency anemia, asthma, gout, and hypertension. She was recently discharged from [facility] on 09/26/2025 after treatment for weakness, recurrent falls, VEE, and UTI/pneumonia. She presented again on 10/28/2025 from [facility] with acute shortness of breath, altered mental status, and wheezing. On arrival, she was drowsy and hypoxic, requiring escalation from her baseline 2L nasal cannula to BiPAP. Initial evaluation revealed evidence of fluid overload on chest x-ray, acute on chronic hypercapnic respiratory failure (ABG: pH 7.15, pCO2 127, HCO3 43), and urinalysis consistent with UTI. She was started on IV meropenem due to a history of ESBL organisms, and diuresed with IV Lasix for volume overload. EKG showed sinus rhythm without acute ischemia, and echocardiogram demonstrated normal biventricular function with mild concentric LV hypertrophy and no significant valvular disease. During her hospitalization, the patient?s respiratory status improved with BiPAP and bronchodilator therapy (DuoNebs), and she was transitioned back to her baseline 2L nasal cannula as her oxygenation stabilized. She remained afebrile and hemodynamically stable, though she experienced intermittent hypertension managed with antihypertensives. Her renal function showed mild worsening, likely related to diuresis, and was closely monitored. She continued on her home medications with adjustments as needed, including resumption of oral furosemide. The UTI was managed with ongoing meropenem pending final urine culture results. Urine culture resulted negative for any bacterial growth. Will discontinue antibiotics at this time. She also received topical miconazole for intertriginous dermatitis. Throughout her stay, the patient was alert and oriented, with improvement in her mental status and respiratory symptoms. She was maintained on fall precautions and received supportive care including physical and occupational therapy. Intake and output were closely tracked, and daily weights were obtained to guide diuresis. By 10/30/2025, she reported feeling much better, with stable vital signs and oxygen saturations in the mid-90s on 2L nasal cannula. She remained afebrile, without leukocytosis, and her overall clinical status was significantly improved from admission. Patient will be discharged on AVAPS when she arrives back to [facility] with the following instructions: Ordering ventilator for nocturnal and daytime as required. Patient needs an IV for management of acute on chronic hypercarbia respiratory failure due to OHS, home BiPAP is not the best option for the patient. As the patient was to be discharged back to SNF on NIV, her AVAPS machine needed to be set up at the facility with the correct settings. As such, this was not ready at the time that discharge ordered were placed. On 11/01, these setting were confirmed and sent to the receiving facility - as such the patient is ready for discharge at this time. Status at Discharge Functional status at discharge: uses cane/walker Overall status at discharge: patient is back to baseline Time Spent with Patient Time attestation: Total time spent providing and/or coordinating discharge services: 27 Exam Const: General: comfortable and no acute distress Other: A&O x3 HENMT: Face/Nose/Sinus: Normal nares present Mouth: Yes moist mucous membranes Eyes: General: appearance normal, both eyes and all related structures Resp: Effort & Inspection: normal respiratory effort Auscultation: clear to auscultation bilaterally, no crackles, no wheezes and lung sounds not diminished Cardio: Rate: regular rate Rhythm: regular rhythm GI: Inspection: non-distended GI Palp: Yes Soft to palpation Auscultation: normal bowel sounds : Other: Intertriginous dermatitis Extrem: Other: Lipodermatosclerosis bilateral lower extremities with minimal pitting edema DS: Data Data Completed and Pending Labs on day of discharge: Labs from last 24 hours 11/01/25 10/28/25 05:58 22:53 WBC 8.3 RBC 4.19 L Hgb 12.2 Hct 40.2 MCV 95.9 MCH 29.1 MCHC 30.3 L RDW 14.8 H Plt Count 254 MPV 9.6 Immature Gran % (Auto) 0.7 H Neut % (Auto) 91.7 H Lymph % (Auto) 4.5 L [place] % (Auto) 3.0 Eos % (Auto) 0.0 Baso % (Auto) 0.1 L Lymph # (Auto) 0.37 L [place] # (Auto) 0.3 Eos # (Auto) 0.0 Baso # (Auto) 0.0 Abs Immat Gran (auto) 0.06 H Absolute Neuts (auto) 7.6 H Absolute Nucleated RBC 0.000 Nucleated RBC % 0.0 Sodium 135 L Potassium 5.1 H Chloride 94 L Carbon Dioxide 39 H Anion Gap 2 L BUN 54 H Creatinine 1.00 Estim Creat Clear Calc 63 Estimated GFR 55 L Glucose 141 H Calcium 8.9 Total Bilirubin 0.4 AST 17 ALT 10 Alkaline Phosphatase 70 Total Protein 6.0 L Albumin 3.3 L Nasal RSV Type A (PCR) Cancelled Nasal RSV Type B (PCR) Cancelled Chlamy pneumoniae PCR Cancelled Adenovirus DNA Cancelled Human Bocavirus (CHANO) Cancelled Coronavirus Type OC43 Cancelled Coronavirus Type HKU1 Cancelled Coronavirus Type 229E Cancelled Coronavirus Type NL63 Cancelled Human Metapneumovir PCR Cancelled Influenza A (PCR) Cancelled Influenza A (H1) RNA Cancelled Influenza A (H3) PCR Cancelled M. pneumoniae DNA Cancelled Parainfluenza PCR Cancelled Parainfluenza 2 (PCR) Cancelled Parainfluenza 3 RNA (PCR) Cancelled Parainfluenza 4 (PCR) Cancelled Rhino/Enterovirus (CHANO) Cancelled SARS-CoV-2 RNA (RT-PCR) Cancelled Influenza Type B (PCR) Cancelled Misc Test Comment Cancelled Discharge Plan Discharge Attending physician on discharge: Stanislav Draper Consulting providers: Raffi Hodgson Discharging Clinician: Raffi Hodgson Anticipated Discharge Date/Time: 10/31/25 11:32 Patient Disposition: SNF Activity: as tolerated Diet: heart healthy Discharge Instructions: Discharge disposition: [facility] Take medications as prescribed You will be set up with AVAPS: Ordering ventilator for nocturnal and daytime as required. Patient needs an IV for management of acute on chronic hypercarbia respiratory failure due to OHS, home BiPAP is not the best option for the patient Monitor blood pressures Take caution while standing, rising, or moving Change positions slowly taking a break between each position change If you standing feel dizzy sit back down and take a break Encouraged to continue with yearly vaccinations Return to the emergency department if you develop sudden shortness of breath, chest pain, nausea, vomiting, upset stomach or intractable diarrhea Return to the emergency department if you develop fever greater than 101.5 Follow-up with the primary care physician within 1-2 weeks Thank you for choosing [facility] for your healthcare needs Patient Instructions: Heart Failure (DC), Urinary Tract Infection in Women (DC) , Urinary Tract Infection in Older Adults (DC) Patient Language: Khmer Stand Alone Forms: General Discharge Information Follow-up/Referrals: Ellie,Helen Garcia MD [Primary Care Provider, Unknown] Discharge Medications: Continued furosemide 40 mg tablet 40 mg PO DAILY levothyroxine 137 mcg tablet 137 mcg PO DAILY atorvastatin 20 mg tablet 20 mg PO DAILY allopurinol 100 mg tablet 100 mg PO DAILY ferrous sulfate 325 mg (65 mg iron) tablet 325 mg PO DAILY gabapentin 300 mg capsule 300 mg PO TID montelukast 10 mg tablet 10 mg PO HS sennosides-docusate sodium [Senokot-S] 8.6-50 mg Tablet 1 tablet PO HS Qty: 30 0RF acetaminophen [Tylenol Extra Strength] 500 mg tablet 1,000 mg PO Q6H PRN (Reason: fever or pain) cholecalciferol (vitamin D3) 1,250 mcg (50,000 unit) capsule 1,250 mcg PO WEEKLY Rx Instructions: Pt takes on Tuesdays. miconazole nitrate 2 % cream 1 applic topical BID Rx Instructions: Apply topically to rash in josr-area and skin folds. urea 20 % cream 1 applic topical DAILY Rx Instructions: Apply topically to bilateral legs daily. Date of admission: 10/28/25 20:06 Primary Care Provider: Reid,Helen Garcia Admitting Provider: Marina Marquez Attending physician on admission: Marina Marquez Condition: Stable
== END 2025-11-01 12:09 | DRG 291 ==
LOC: ANHED 19:30 → ANHIMU 21:01 → ANH3MEDSUR 11-02 12:11 → ANHIMU 11-02 12:11
PROVIDERS: Admitting Provider General Practice; Emergency Provider Emergency Medicine; PCP Student in an Organized Health Care Education/Training Program; Visit Provider Physician Assistant
DX: I11.0 Hypertensive heart disease with heart failure (principal); J96.01 Acute respiratory failure with hypoxia; J96.22 Acute and chronic respiratory failure with hypercapnia; Z68.43 Body mass index [BMI] 50.0-59.9, adult; N39.0 Urinary tract infection, site not specified; N17.9 Acute kidney failure, unspecified; I50.9 Heart failure, unspecified; M79.3 Panniculitis, unspecified; L30.4 Erythema intertrigo; E66.01 Morbid (severe) obesity due to excess calories; E87.5 Hyperkalemia; I49.3 Ventricular premature depolarization; I44.30 Unspecified atrioventricular block; D50.9 Iron deficiency anemia, unspecified; E03.9 Hypothyroidism, unspecified; M10.9 Gout, unspecified; Z66 Do not resuscitate; Z20.822 Contact with and (suspected) exposure to COVID-19; Z90.49 Acquired absence of other specified parts of digestive tract; Z91.81 History of falling; Z79.2 Long term (current) use of antibiotics
CPT/HCPCS: 0202U; 36415; 36600; 71045; 71275; 80048; 80053; 80307; 81001; 82375; 82805; 83050; 83605; 83735; 83880; 84443; 85018; 85025; 87086; 87633; 87637; 93005; 94002; 94003; 94640; 96365; 96375; 97110; 97116; 97161; 97166; 97530; 99291; A9270; C8929; J0360; J1938; J2185; J2919; Q9957; Q9967

== ENCOUNTER 2025-11-09 10:42 | Inpatient (IN) | payer MEDICARE, SELFPAY ==
--- OUTSIDE RECORDS SUMMARY | 2025-11-06 01:00 | XMS_ITS ---
Author Organization [facility] Address [address] [place] [phone] Care Team Providers Care Process Architect Name Role Phone DR. YAO MONTEZ Primary Care Provider Tia Daley Unavailable [phone] Allergies Allergen (clinical drug ingredient) Drug/Non Drug Allergy documented on EMR Reaction Allergy Type Onset Date Status No Known Drug Allergy Unknown Drug Allergy Active REASON FOR VISIT LV, Routine & hosp f/[facility] 11/01 Medications Medication SIG (Take, Route, Frequency, Duration) Notes Start Date End Date Status Montelukast Sodium 10 MG Tablet 1 tablet Orally Once a day; Duration: 30 days 11/24/2024 Active Levothyroxine Sodium 137 MCG Capsule 1 tablet in the morning on an empty stomach Orally Once a day; Duration: 30 days 11/24/2024 Active Miconazole 2 % Powder 1 application Exte rnally Twice a day 10/25/2025 Active Urea 20 % Cream 1 application as nee ded Externally Once a day Active Senna Plus 8.6-50 MG Tablet 1 tablet as needed Orally Twice a day Active Lasix 40 MG Tablet 1 tablet Orally Once a day Active Gabapentin 300 MG Capsule 1 capsule Oral ly three times a day; Duration: 30 days 11/24/2024 Active Allopurinol 100 MG Tablet 1 tablet Orall y Once a day Active Ferrous Sulfate 325 (65 Fe) MG Tablet Delayed Release 1 tablet Orally once a day; Duration: 30 days 11/24/2024 Active Atorvastatin Calcium 20 MG Tablet 1 tablet Orally Once a day; Duration: 30 days 11/24/2024 Active Cholecalciferol 1.25 MG (20180 UT) Capsule 1 capsule once per week Orally; Duration: 30 days 09/30/2025 Active Acetaminophen 500 MG Tablet 2 tabs; oral Special Instructions: 2 tabs PO PRN Q 6 hrs for pain Orally every 6 hrs Active Social History Tobacco Use: Social History Observation Description Date Details (start date - stop date) Never Smoker NA - NA Social History Tobacco Use: Social Info Question Answer Notes Tobacco Control (Standard) Tobacco use: Nonsmoker Problems Problem Type SNOMED Code ICD Code Onset Dates Problem Status W/U Status Risk Notes Problem Chronic respiratory failure (34373705) Chronic respiratory failure, unspecified whether with hypoxia or hypercapnia (J96.10) Active confirmed Vital Signs Temperature 98.5 degrees Fahrenheit 11/06/20 25 Blood pressure systolic 130 mm Hg 11/06/20 25 Blood pressure diastolic 80 mm Hg 025 Heart Rate 86 /min 11/06/2025 Respiratory Rate 18 /min 11/06/2025 Oximetry 95 % 11/06/2025 Encounters Encounter Location Date Provider Diagnosis [facility] [address] [place] [address] 11/06/2025 Tia Daley Acute UTI N39.0 ; Chronic respiratory failure, unspecified whether with hypoxia or hypercapnia J96.10 ; Physical deconditioning R53.81 ; Hypothyroidism, unspecified E03.9 ; Vitamin D deficiency E55.9 and Groin rash R21 Assessments Encounter Date Diagnosis (ICD Code) Assessment Notes Treatment Notes Treatment Clinical Notes Section Notes 11/06/2025 Acute UTI (ICD-10 - N39.0) Patient was treated again in the hospital for UTI with IV meropenem. Patient denies any signs and symptoms of UTI at this time. Continue to monitor and update on changes. Educated patient on ensuring she drinks enough fluids to help with that, not getting any UTIs. 11/06/2025 Chronic respiratory failure, unspecified whether with hypoxia or hypercapnia (ICD-10 - J96.10) Patient was admitted to the hospital with acute respiratory failure with hypercapnia and hypoxia. Patient was started on a BiPAP machine which she is to wear at night now, and it is set up at bedside. Patient continues on 2 liters of O2 continuously. Patient denies any shortness of breath or any other issues breathing. 11/06/2025 Physical deconditioning (ICD-10 - R53.81) Patient is working with PT/OT for strengthening and mobility. Reports therapy is going well. Utilizes a wheelchair for ambulation. 11/06/2025 Hypothyroidism, unspecified (ICD-10 - E03.9) On 09/28/2025, TSH was elevated at 8.247. Patient reports that she had not been taking her thyroid medication correctly until she was in the hospital. Order given to repeat TSH and free T4 in four weeks. Due to patient arriving back from the hospital on 10/31/25, her labs were not drawn. We will give order on next visit to redraw TSH and free T4. 11/06/2025 Vitamin D deficiency (ICD-10 - E55.9) On 09/28/2025, vitamin D level was very low at 5. Order was given to start vitamin D3 50,000 units once per week and repeat vitamin D level in four weeks. Due to patient arriving back from the hospital on 10/31/25, her labs were not drawn. We will give order on next visit to redraw vitamin D. 11/06/2025 Groin rash (ICD-10 - R21) Staff report that her groin, buttocks and legs area is still red and raw looking, patient reports that it is still itchy at times. They continue to use the Miconazole cream. Continue to monitor and update with any changes. 11/06/2025 Other Patient with multiple chronic conditions, each requiring ongoing management and coordination of care. Reviewed and interpreted most recent laboratory results available, diagnostic studies, and prior specialist notes. Staff to continue to monitor and report any changes. Patient education provided and questions/concern s addressed. Close follow-up required; reassess in 3-7 days or sooner if condition worsens. Plan Of Treatment Treatment Notes Assessment Notes Acute UTI Patient was treated again in the hospital for UTI with IV meropenem. Patient denies any signs and symptoms of UTI at this time. Continue to monitor and update on changes. Educated patient on ensuring she drinks enough fluids to help with that, not getting any UTIs. Chronic respiratory failure, unspecified whether with hypoxia or hypercapnia Patient was admitted to the hospital wit h acute respiratory failure with hypercapnia and hypoxia. Patient was started on a BiPAP machine which she is to wear at night now, and it is set up at bedside. Patient continues on 2 liters of O2 continuously. Patient denies any shortness of breath or any other issues breathing. Physical deconditioning Patient is worki ng with PT/OT for strengthening and mobility. Reports therapy is going well. Utilizes a wheelchair for ambulation. Hypothyroidism, unspecified On , TSH was elevated at 8.247. Patient reports that she had not been taking her thyroid medication correctly until she was in the hospital. Order given to repeat TSH and free T4 in four weeks. Due to patient arriving back from the hospital on 10/31/25, her labs were not drawn. We will give order on next visit to redraw TSH and free T4. Vitamin D deficiency On 09/28/2025, xena min D level was very low at 5. Order was given to start vitamin D3 50,000 units once per week and repeat vitamin D level in four weeks. Due to patient arriving back from the hospital on 10/31/25, her labs were not drawn. We will give order on next visit to redraw vitamin D. Groin rash Staff report that he r groin, buttocks and legs area is still red and raw looking, patient reports that it is still itchy at times. They continue to use the Miconazole cream. Continue to monitor and update with any changes. Other Patient with multiple chronic conditions, each requiring ongoing management and coordination of care. Reviewed and interpreted most recent laboratory results available, diagnostic studies, and prior specialist notes. Staff to continue to monitor and report any changes. Patient education provided and questions/concerns addressed. Close follow-up required; reassess in 3-7 days or sooner if condition worsens. Next Appt Details Follow Up: 3-7 Days, Reason: Provider Name:Tia Edi , 11/14/2025 08:45:00 AM, [address] [place] [address], [id number], Provider Name:Tia Daley , 11/16/2025 10:45:00 AM, [address] [place] [address], [id number], History and Physical Notes * Examination Category Sub-Category Detail Notes Category Not es General Examination General appearance: alert, p leasant, well-nourished and in no acute distress Head: normocephalic, atrau matic Ears: normal Nose: nares patent Heart: regular rate and rhy thm without murmurs, gallops, clicks or rubs, no jugular venous distention Lungs: clear to auscultatio n bilaterally, with diminished breath sounds throughout, and no rales, rhonchi or wheezes, 2L O2 Abdomen: soft with good bowel sounds, nontender, and no masses or hepatosplenomegaly Neurologic: alert, cooperative w ith exam, gait abnormal, abnormal upper and lower extremity motor strength and function Skin: fungal rash noted to back of legs, buttocks, and groin area. Extremities: non-pitting edema no vangie to the bilateral lower extremities. Musculoskeletal: wheelchair for ambul ation Psych: alert and oriented x 3, cooperative with exam, maintains good eye contact, normal affect / mood Progress Notes * June MARIANODOB:1955 (69 yo F)Acc No.[id number]:11/06/2025 Patient: June Vinson Provider: REBECCA Wheatley :1955 A ge:69 Y S ex:Female Date:11/06/2025 Address:[address] [place] [address] Pcp:DR. YAO MONTEZ Subjective: * Chief Complaints: * L V, Routine & hosp f/u- Philip 11/01 * HPI: T ransition of Care: Patient is being seen at [facility] for an [facility] routine visit and a hospital follow-up. She was admitted to the hospital on 10/28 until 10/31 due to acute respiratory failure with hypercapnia, CHF, and a UTI. She was sent to the hospital due to being short of breath and altered mental status. Upon arriving to the emergency room, she was very drowsy and hypoxic, and they had to increase her baseline 2 L of O2 to a BiPAP machine. She was treated in the hospital with IV meropenem and IV Lasix. Once she was stabilized and was no longer on IV antibiotics and was back on her baseline of 2L of O2. Patient was discharged back to this facility to continue her rehab. She is alert and oriented x3, able to make needs known. She consented to today's exam. Patient seen while sitting up in her wheelchair after breakfast, denies any problems at this time. She reports she is feeling much better. Pleasant and cooperative with exam. She was originally admitted to this facility after being hospitalized due to a UTI and pneumonia. She was treated in the hospital and discharged once stable to this facility for rehab. She is working with PT and OT for strengthening and mobility. She reports therapy is going okay. She utilizes a wheelchair for ambulation. Staff do not have any other concerns at this time. * ROS: G eneral / Constitutional: Patient denies f atigue, headache, lightheadedness, sleep disturbance, weight gain. P atient complains of w eakness. E NT: Patient denies e ar pain, hoarseness, nasal congestion, pain, sinus pain, sore throat. R espiratory: Patient denies c hest pain, cough, shortness of breath, sputum production. C omments 2 L continuous O2. C ardiovascular: Patient denies c hest pain, chest pain with exertion, irregular heartbeat, palpitations, shortness of breath. G astrointestinal: Patient denies a bdominal pain, constipation, diarrhea, rectal bleeding, vomiting, weight loss, blood in stool. G enitourinary: Patient denies b lood in the urine, difficulty urinating, frequent urination, painful urination. M usculoskeletal: Patient denies a rthritis / arthralgia, back pain, back problems, painful joints. P eripheral Vascular: Patient denies c old extremities, decreased sensation in extremities, painful extremities. S kin: Patient denies d iscoloration, dry skin, ulcerations. P atient complains of r brad, i tching. N eurologic: Patient denies c onfusion, dizziness, tingling / numbness, tremor. P atient complains of g ait abnormality, loss of strength. P sychiatric: Patient denies a nxiety, depressed mood, loss of appetite, mood disorder, suicidal thoughts. * Medical History: Noninfective gastroenteritis and colitis, unspecified Acute respiratory failure, unspecified whether with hypoxia or hypercapnia Muscle weakness (generalized) Other abnormalities of gait and mobility Acute kidney failure, unspecified Unspecified intestinal obstruction, unspecified as to partial versus complete obstruction Morbid (severe) obesity due to excess calories Urinary tract infection, site not specified Infection of obstetric surgical wound, unspecified Ileus, unspecified Need for assistance with personal care Other hyperlipidemia Other iron deficiency anemia Secondary hypertension, unspecified Other allergic rhinitis Generalized abdominal pain Nausea with vomiting, unspecified Hypothyroidism, unspecified Pain, unspecified Constipation, unspecified Medical History Verified * Surgical History: BREAST SURGERY MOLE REMOVAL CUCA CATARACT SURGERY ABDOMEN SURGERY PROC UNLISTED Surgical History verified. * Hospitalization/Major Diagno stic Procedure: No Hospitalization Documented. Hospitalization Verified. * Family History: F ather: , carotid artery stenosis, arthritis, early hearing loss, diagnosed with Hypertension, Acute myocardial infarction, unspecified. M other: , hyperlipidemia, cancer, arthritis, kidney disease, diagnosed with Diabetes, Hypertension, Acute myocardial infarction, unspecified. M aternal Grandfather: alive, cancer. M aternal Grandmother: alive, ovarian cancer. Brother: , chronic obstructive pulmonary disease, diagnosed with Diabetes, Acute myocardial infarction, unspecified. S ister: alive, diagnosed with Diabetes. F amily History Verified.. * Social History: T obacco Use: T obacco Control (Standard) T obacco use: N onsmoker. Social History Verified. * Medications: T akingAcetaminophen 500 MG Tablet 2 tabs; oral Special Instructions: 2 tabs PO PRN Q 6 hrs for pain Orally every 6 hrs Cholecalciferol 1.25 MG (00639 UT) Capsule 1 capsule once per week Orally Allopurinol 100 MG Tablet 1 tablet Orally Once a day Atorvastatin Calcium 20 MG Tablet 1 tablet Orally Once a day Ferrous Sulfate 325 (65 Fe) MG Tablet Delayed Release 1 tablet Orally once a day Gabapentin 300 MG Capsule 1 capsule Orally three times a day Lasix 40 MG Tablet 1 tablet Orally Once a day Levothyroxine Sodium 137 MCG Capsule 1 tablet in the morning on an empty stomach Orally Once a day Montelukast Sodium 10 MG Tablet 1 tablet Orally Once a day Senna Plus 8.6-50 MG Tablet 1 tablet as needed Orally Twice a day Urea 20 % Cream 1 application as needed Externally Once a day Miconazole 2 % Powder 1 application Externally Twice a day Medication List reviewed and reconciled with the patientTaking Acetaminophen 500 MG Tablet 2 tabs; oral Special Instructions: 2 tabs PO PRN Q 6 hrs for pain Orally every 6 hrs Taking Cholecalciferol 1.25 MG (42989 UT) Capsule 1 capsule once per week Orally Taking Allopurinol 100 MG Tablet 1 tablet Orally Once a day Taking Atorvastatin Calcium 20 MG Tablet 1 tablet Orally Once a day Taking Ferrous Sulfate 325 (65 Fe) MG Tablet Delayed Release 1 tablet Orally once a day Taking Gabapentin 300 MG Capsule 1 capsule Orally three times a day Taking Lasix 40 MG Tablet 1 tablet Orally Once a day Taking Levothyroxine Sodium 137 MCG Capsule 1 tablet in the morning on an empty stomach Orally Once a day Taking Montelukast Sodium 10 MG Tablet 1 tablet Orally Once a day Taking Senna Plus 8.6-50 MG Tablet 1 tablet as needed Orally Twice a day Taking Urea 20 % Cream 1 application as needed Externally Once a day Taking Miconazole 2 % Powder 1 application Externally Twice a day Medication List reviewed and reconciled with the patient * Allergies: N o Known Drug AllergyyesAllergies Verified. Objective: * Vitals: B P:130/80mm Hg, HR:86/min, RR:18/min, Temp:98.5F, Oxygen sat %:95%. * Examination: G eneral Examination: General appearance: a lert, pleasant, well-nourished and in no acute distress. Head: n ormocephalic, atraumatic. Ears: n ormal. Nose: n margaret patent. Skin: f ungal rash noted to back of legs, buttocks, and groin area. . Heart: r egular rate and rhythm without murmurs, gallops, clicks or rubs, no jugular venous distention. Lungs: c lear to auscultation bilaterally, with diminished breath sounds throughout, and no rales, rhonchi or wheezes, 2L O2. Abdomen: s oft with good bowel sounds, nontender, and no masses or hepatosplenomegaly. Musculoskeletal: w heelchair for ambulation. Extremities: n on-pitting edema noted to the bilateral lower extremities. . Neurologic: a lert, cooperative with exam, gait abnormal, abnormal upper and lower extremity motor strength and function. Psych: a lert and oriented x 3, cooperative with exam, maintains good eye contact, normal affect / mood. Assessment: * Assessment: 1. C hronic respiratory failure, unspecified whether with hypoxia or hypercapnia - J96.10 (Primary) 2 . A cute UTI - N39.0 3 . P hysical deconditioning - R53.81 4 . H ypothyroidism, unspecified - E03.9 5 . V itamin D deficiency - E55.9 6 . G jose mejía - R21 Plan: * Treatment: 2. A cute UTI Notes: Patient was treated again in the hospital for UTI with IV meropenem. Patient denies any signs and symptoms of UTI at this time. Continue to monitor and update on changes. Educated patient on ensuring she drinks enough fluids to help with that, not getting any UTIs. 3. P hysical deconditioning Notes: Patient is working with PT/OT for strengthening and mobility. Reports therapy is going well. Utilizes a wheelchair for ambulation. 4. H ypothyroidism, unspecified Notes: On 09/28/2025, TSH was elevated at 8.247. Patient reports that she had not been taking her thyroid medication correctly until she was in the hospital. Order given to repeat TSH and free T4 in four weeks. Due to patient arriving back from the hospital on 10/31/25, her labs were not drawn. We will give order on next visit to redraw TSH and free T4. 5. V itamin D deficiency Notes: On 09/28/2025, vitamin D level was very low at 5. Order was given to start vitamin D3 50,000 units once per week and repeat vitamin D level in four weeks. Due to patient arriving back from the hospital on 10/31/25, her labs were not drawn. We will give order on next visit to redraw vitamin D. 6. G jose rash Notes: Staff report that her groin, buttocks and legs area is still red and raw looking, patient reports that it is still itchy at times. They continue to use the Miconazole cream. Continue to monitor and update with any changes. 7. O thers Notes: P atient with multiple chronic conditions, each requiring ongoing management and coordination of care. Reviewed and interpreted most recent laboratory results available, diagnostic studies, and prior specialist notes. Staff to continue to monitor and report any changes. Patient education provided and questions/concerns addressed. Close follow-up required; reassess in 3-7 days or sooner if condition worsens. * Procedure Codes: 9 9309 NURSING FAC CARE SUBSEQ * Follow Up: 3 -7 Days Billing Information: * Procedure Codes: 10779 NURSING FAC CARE SUBSEQ. * Electronic signature of GARCIA Valero on 11/09/2025 at 11:21 AM CITRUS FRUIT PACKER Sign off status: Pending * Provider: REBECCA Wheatley Date: 1 01/07/2025 Generated for Jerad cornelius/Eryn/Leona on: 01/10/2025 11:21 AM CITRUS FRUIT PACKER
--- OUTSIDE RECORDS SUMMARY | 2025-11-08 04:30 | XMS_ITS ---
Author Organization [facility] Address [address] [place] [phone] Care Team Providers Care Cannon Pinion Adjuster Name Role Phone DR. YAO MONTEZ Primary Care Provider Tia Daley Unavailable [phone] REASON FOR VISIT LV, skilled Encounters Encounter Location Date Provider Diagnosis [address] [address] 11/08/2025 Tia Daley Plan Of Treatment Next Appt Details Provider Name:Tia Daley , 11/14/2025 08:45:00 AM, [address] [place] [address], [id number], Provider Name:Tia Daley , 11/16/2025 10:45:00 AM, [address] [place] [address], [address], Progress Notes * June MARIANODOB:1955 (69 yo F)Acc No.[id number]:11/08/2025 Patient: Shravan Vinsonye Provider: REBECCA Wheatley :1955 A ge:69 Y S ex:Female Date:11/08/2025 Address:[address] [place] [address] [facility] Pcp:DR. YAO MONTEZ Subjective: * Chief Complaints: * L V, skilled * Electronic signature of GARCIA Valero on 11/09/2025 at 11:21 AM LEASE ATTENDANT Sign off status: Pending * Provider: REBECCA Wheatley Date: 01/09/2025 Generated for Jerad cornelius/Eryn/Michaelitting on: 1 01/10/2025 11:21 AM LEASE ATTENDANT
--- OUTSIDE RECORDS SUMMARY | 2025-11-08 15:32 | XMS_ITS ---
Author Organization [facility] Address [address] [place] [phone] Care Team Providers Care Research Executive Name Role Phone DR. YAO MONTEZ Primary Care Provider REASON FOR VISIT chart prep Medications Medication SIG (Take, Route, Frequency, Duration) Notes Start Date End Date Status Lasix 40 MG Tablet 1 tablet Orally Once a day Active Allopurinol 100 MG Tablet 1 tablet Orall y Once a day Active Atorvastatin Calcium 20 MG Tablet 1 tablet Orally Once a day; Duration: 30 days 11/24/2024 Active Ferrous Sulfate 325 (65 Fe) MG Tablet Delayed Release 1 tablet Orally once a day; Duration: 30 days 11/24/2024 Active Gabapentin 300 MG Capsule 1 capsule Oral ly three times a day; Duration: 30 days 11/24/2024 Active Senna Plus 8.6-50 MG Tablet 1 tablet as needed Orally Twice a day Active Urea 20 % Cream 1 application as nee ded Externally Once a day Active Acetaminophen 500 MG Tablet 2 tablet as needed Orally every 6 hrs Active Miconazole 2 % Powder 1 application Exte rnally Twice a day 10/25/2025 Active Cholecalciferol 1.25 MG (98534 UT) Capsule 1 capsule Orally once a day; Duration: 30 days on wednesday09/30/2025 Active Levothyroxine Sodium 137 MCG Capsule 1 tablet in the morning on an empty stomach Orally Once a day; Duration: 30 days 11/24/2024 Active Montelukast Sodium 10 MG Tablet 1 tablet Orally Once a day; Duration: 30 days 11/24/2024 Active Social History Tobacco Use: Social History Observation Description Date Details (start date - stop date) Never Smoker NA - NA Social History Tobacco Use: Social Info Question Answer Notes Tobacco Control (Standard) Tobacco use: Nonsmoker Encounters Encounter Location Date Provider Diagnosis [facility] [address] [place] [address] 11/08/2025 YAO MONTEZ Plan Of Treatment Next Appt Details Provider Name:Tia Daley , 11/14/2025 08:45:00 AM, [address], [place], [address], Provider Name:Tia Daley , 11/16/2025 10:45:00 AM, [address], [place], [address], Progress Notes * MONTSERRAT JuneDOB:1955 (69 yo F)Acc No.[id number]:11/08/2025 Patient: June BOOTH :1955 A ge:69 Y S ex:Female Address:[address] [place] [address], [place] [address] Subjective: * Chief Complaints: * C jacobs prep * Surgical History: BREAST SURGERY MOLE REMOVAL CUCA CATARACT SURGERY ABDOMEN SURGERY PROC UNLISTED Surgical History verified. * Family History: F ather: , carotid [...] Medications: T akingAcetaminophen 500 MG Tablet 2 tablet as needed Orally every 6 hrs Cholecalciferol 1.25 MG (19437 UT) Capsule 1 capsule Orally once a day on wednesdayAllopurinol 100 MG Tablet 1 tablet Orally Once [...] Powder 1 application Externally Twice a day Taking Acetaminophen 500 MG Tablet 2 tablet as needed Orally every 6 hrs Taking Cholecalciferol 1.25 MG (29717 UT) Capsule 1 capsule Orally once a day Allopurinol 100 MG Tablet 1 tablet Orally [...] Powder 1 application Externally Twice a day * true * Date: Generated for Jerad cornelius/Eryn/Leona on: 01/10/2025 11:21 AM GEAR ROLLER
[2025-11-09] VITALS (47 sets, daily range): BP systolic 82–121; BP diastolic 41–85; PULSE 59–110; RESP 14–24; TEMP 37.2–38.2; O2SAT 95–100
--- NOTE | ~2025-11-09 | CT_ITS ---
EXAMINATION: CT chest, abdomen and pelvis without contrast: DATE: 11/10/2025 INDICATION: Sepsis. Respiratory failure. Intubated. TECHNIQUE: CT through the chest was performed as well as abdomen and pelvis without oral or IV contrast and reviewed in multiple projections. Radiation dose 2095 MG Y C.M. COMPARISON: Chest x-ray dated 11/10/2025. KUB dated 11/09/2025. FINDINGS: The endotracheal tube tip at the level of the top of the aortic arch. Tip of the nasogastric tube within the stomach. Mild patchy consolidation of posterior basal segment of both lower lobes. Perihilar vascular congestion of both lungs. Platelike atelectasis of left mid lung field. Minimal bilateral pleural effusion. No pericardial effusion is seen. Below the diaphragm, distended gallbladder containing calcified gallstone. No focal lesions of liver and spleen. Kidneys do not show any obstructive changes. Both kidneys are atrophic in size. No pelvic mass or fluid collections are seen. No acute findings of lumbar spine and pelvic bones. IMPRESSION: 1. Satisfactory position of endotracheal tube and nasogastric tube. 2. Perihilar vascular congestion of both lungs. Platelike atelectasis of mid left lung. Partial atelectasis of lung bases on both sides. Minimal bilateral pleural effusion. 3. Distended gallbladder containing calcified gallstone. Atrophic kidneys. Reviewed, dictated and finalized at location T. LOGIST IMPRESSION: 1. Satisfactory position of endotracheal tube and nasogastric tube. 2. Perihilar vascular congestion of both lungs. Platelike atelectasis of mid le ft lung. Partial atelectasis of lung bases on both sides. Minimal bilateral ple ural effusion. 3. Distended gallbladder containing calcified gallstone. Atrophic kidneys.
--- NOTE | ~2025-11-09 | XR_ITS ---
EXAM/PROCEDURE: XR abdomen gastric tube insert HISTORY: OG tube placement COMPARISON: None available. TECHNIQUE: KUB FINDINGS: No gastric catheter is present in the abdomen. Gastric catheter tip may be present in the mid esophagus. IMPRESSION: No gastric catheter seen in the stomach. Reviewed, dictated and finalized at location A. WORKER SUPERVISOR
--- NOTE | ~2025-11-09 | XR_ITS ---
XR chest 1V portable 11/11/2025 05:33 Indication: Respiratory distress Procedure: AP portable chest Comparison: Comparison to multiple prior studies sequentially, with oldest reviewed study dated 09/21/2025. Findings: Endotracheal tube tip 4.1 cm above the jonathon. NG tube passes into the abdomen, tip not evaluated. There is bilateral airspace disease which has progressed on the right. No significant effusion. No pneumothorax. Impression: 1: Progression of bilateral airspace disease which may represent edema and/or pneumonia. Reviewed, dictated and finalized at location O. ENING MACHINE OPERATOR HELPER Impression: 1: Progression of bilateral airspace disease which may represent edema and/or p neumonia.
--- NOTE | ~2025-11-09 | XR_ITS ---
EXAMINATION: XR chest 1V portable DATE: 11/14/2025 04:40 INDICATION: Intubated TECHNIQUE: frontal view of the chest was obtained. COMPARISON: Chest radiograph dated 11/13/2025 FINDINGS: Endotracheal tube tip 3.1 cm above the jonathon. Nasogastric tube extends below the left hemidiaphragm with distal tip collimated off the study. Right upper extremity peripherally inserted central venous catheter (PICC) tip at the caudal superior vena cava. Persistent bilateral interstitial and airspace opacities throughout both lungs with perihilar predominance, most likely pneumonia although differential includes pulmonary edema. No pleural effusion or pneumothorax. Heart size is normal. Severe thoracic spondylosis. IMPRESSION: 1. Persistent bilateral perihilar predominant airspace and interstitial opacities which could represent pneumonia or pulmonary edema. Reviewed, dictated and finalized at location A. CENTER AGENT IMPRESSION: 1. Persistent bilateral perihilar predominant airspace and interstitial opaciti es which could represent pneumonia or pulmonary edema.
--- NOTE | ~2025-11-09 | XR_ITS ---
Examination: XR chest 1V portable Clinical History: Intubated Comparison: 1 day prior Technique: Portable AP Findings: ET tube, NG tube. Heart size normal. Persistent bilateral airspace disease. No acute bony abnormality. IMPRESSION: 1. No significant change, with persistent bilateral edema and/or airspace disease. Reviewed, dictated and finalized at location R. RING MACHINE TENDER IMPRESSION: 1. No significant change, with persistent bilateral edema and/or airspace dise ase.
--- NOTE | ~2025-11-09 | XR_ITS ---
EXAMINATION: XR chest 1V portable DATE: 11/09/2025 11:09 INDICATION: Respiratory failure TECHNIQUE: A single frontal view of the chest was obtained. COMPARISON: October 28 FINDINGS: Parahilar changes with prominent vascular markings and developing perihilar infiltrates or pulmonary edema; endotracheal tube present with tip approximately 2.3 cm above the jonathon. Gastric catheter also may be present with the tip in the midesophagus. Heart size mildly enlarged. No pneumothorax or subphrenic free air. IMPRESSION: 1. Perihilar changes may represent vascular congestion and bilateral perihilar edema; parahilar pneumonia could have a similar appearance. 2. Endotracheal tube and possible gastric catheter in the midesophagus. Reviewed, dictated and finalized at location A. APEUTIC MASSAGE TECHNICIAN
--- NOTE | ~2025-11-09 | XR_ITS ---
EXAMINATION: XR abdomen gastric tube rechec, 11/09/2025 12:50 COUNTY NURSE HISTORY: OG placement COMPARISON: No comparisons available. Technique: 3 view. Findings: Bowel gas pattern unremarkable. No obstruction. No free air. No abnormal calcifications No acute osseous abnormality. Nasogastric tube terminates in the body of the stomach Impression: 1. No acute abnormality. Reviewed, dictated and finalized at location P. TY NURSE Impression: 1. No acute abnormality.
--- NOTE | ~2025-11-09 | XR_ITS ---
EXAMINATION: XR chest 1V portable DATE: 11/16/2025 05:46 INDICATION: Respiratory failure. Pneumonia. TECHNIQUE: frontal view of the chest was obtained. COMPARISON: Chest radiograph dated 11/14/2025 FINDINGS: Endotracheal tube tip 4.3 cm above the jonathon. Nasogastric tube extends below the left hemidiaphragm with distal tip collimated off the study. Right upper extremity peripherally inserted central venous catheter (PICC) tip at the mid superior vena cava. Interval improvement in bilateral perihilar predominant bilateral airspace and interstitial opacities. No pleural effusion or pneumothorax. The cardiomediastinal silhouette is within normal limits for AP technique. IMPRESSION: 1. Slight interval decrease in bilateral perihilar predominant interstitial and airspace opacities consistent with improving pulmonary edema and/or pneumonia. Reviewed, dictated and finalized at location A. LSTERY TECH
--- NOTE | ~2025-11-09 | XR_ITS ---
Examination: XR chest 1V portable Clinical History: Intubated Comparison: 1 day prior Technique: Portable AP Findings: ET tube, NG tube. Right PICC. Unchanged cardiomegaly. Persistent scattered patchy bilateral airspace disease, not significantly changed. No sizable pleural effusion or pneumothorax. No acute bony abnormality. IMPRESSION: 1. No significant change in scattered patchy bilateral airspace disease. Reviewed, dictated and finalized at location R. THETIC DENTIST
--- NOTE | ~2025-11-09 | XR_ITS ---
Examination: XR abdomen gastric tube rechec Clinical History: Recheck tube placement, OG TUBE PULLED OUT AND REPLACED Comparison: Earlier same day Technique: Portable AP abdomen, lower chest and upper abdomen included Findings/impression: 1. NG tube coiled within gastric cardia. 2. Nonspecific bowel gas pattern. Reviewed, dictated and finalized at location R. ERNMAKER PLASTICS
--- NOTE | ~2025-11-09 | XR_ITS ---
XR chest 1V portable 11/12/2025 05:26 Indication: Respiratory distress Procedure: AP portable chest Comparison: Comparison to multiple prior studies sequentially, with oldest reviewed study dated 10/28/2025. Findings: Cardiomegaly. Bilateral airspace disease is present which has a past GE distribution. No significant change from prior examination. Endotracheal tube tip 3 cm above the jonathon. NG tube in the stomach. No significant effusion. No pneumothorax. Impression: 1: Unchanged patchy bilateral airspace consolidation which may represent pneumonia or edema. Reviewed, dictated and finalized at location O. O MACHINE OPERATOR Impression: 1: Unchanged patchy bilateral airspace consolidation which may represent pneumo alexis or edema.
--- NOTE | 2025-11-09 10:44 | ECG_ITS ---
Test Date: 2025-11-09 10:50:13 Measurements Intervals [place] Rate: 110 P: 43 TN: 178 QRS: 55 QRSD: 87 T: 35 QT: 319 QTc: 432 Interpretive Statements SINUS TACHYCARDIA CONSIDER INFERIOR INFARCT, AGE INDETERMINATE BASELINE ARTIFACT- I, III, AVR, AVL ABNORMAL ECG Compared to ECG 10/28/2025 18:27:02 HEART RATE HAS INCREASED Electronically Signed On 11-09-2025 11:09:44 PAPER CUTTER OPERATOR by Chris Farias D.O.
[2025-11-09 11:02] LABS: Hematocrit 47.2 % (37.0-47.0); Hemoglobin 13.4 g/dL (12.0-15.0); Immature Granulocyte Percent A 3.3 % (0-0.5); Lymphocytes Absolute Auto 0.36 K/mm3 (0.9-3.2); Mean Corpuscular HGB Conc 28.4 g/dl (32-36); Mean Corpuscular Hemoglobin 28.9 pg (26-34); Mean Corpuscular Volume 101.9 fl (80-100); Nucleated Red Blood Cells Absolute Auto 0.020 K/mm3 (0.0-0.012); Nucleated Red Blood Cells Perc 0.2 % (0.0-0.2); Platelet Count Result 198 k/mm3 (150-375); Red Blood Count 4.63 M/mm3 (4.2-5.4); White Blood Count 12.8 K/mm3 (4.5-10.0)
[2025-11-09] MEDS: FENTANYL 2,500MCG/NS250ML(*CRX 2,500 MCG/250 ML BAG IV CONT (11:13)
[2025-11-09] MEDS: MIDAZOLAM 100MG/NS 100ML(*CRX) 100 MG/100 ML BAG IV CONT (11:16)
--- OUTSIDE RECORDS SUMMARY | 2025-11-09 11:21 | XMS_ITS | Patient Health Record ---
Author Organization [facility] Address [address] [place] [id number] Care Team Providers Care High Scaler Name Role Phone DR. YAO MONTEZ Primary Care Provider Tia Daley Unavailable [phone] Aleisha Carson Unavailable [phone] Allergies Allergen (clinical drug ingredient) Drug/Non Drug Allergy documented on EMR Reaction Allergy Type Onset Date Status No Known Drug Allergy Unknown Drug Allergy Active Reason For Referral No Information Medications Medication SIG (Take, Route, Frequency, Duration) Notes Start Date End Date Status Lasix 40 MG Tablet 1 tablet Orally Once a day Active Levothyroxine Sodium 137 MCG Capsule 1 [...] a day 10/25/2025 Active Cholecalciferol 1.25 MG (67421 UT) Capsule 1 capsule Orally once a day; Duration: 30 days on wednesday09/30/2025 Active Allopurinol 100 MG Tablet 1 tablet [...] a day; Duration: 30 days 11/24/2024 Active Immunizations Vaccine Route Administration Date Status Comme nts COVID-19 Unknown 03/27/2021 Administered COVID-19 Unknown 04/18/2021 Administered COVID-19 Unknown 07/22/2022 Administered COVID-19 Unknown 08/29/2023 Administered Influenza (whole) Unknown 08/21/2017 Administered Influenza (whole) Unknown 12/16/2018 Administered Influenza (whole) Unknown 09/13/2019 Administered Influenza (whole) Unknown 08/25/2020 Administered Pneumococcal conjugate PVC 20 Unknown 07/02/2022 Admini stered Pneumococcal polysaccharide PPV23 Unknown 12/16/2018 Ad ministered RIG (Rabies immune globulin) , human, for IM/SC use Unknown 10/01/2023 Administered RIG (Rabies immune globulin) , human, for IM/SC use Unknown 10/01/2023 Administered RIG (Rabies immune globulin) , human, for IM/SC use Unknown 10/04/2023 Administered RIG (Rabies immune globulin) , human, for IM/SC use Unknown 10/08/2023 Administered RIG (Rabies immune globulin) , human, for IM/SC use Unknown 10/15/2023 Administered RSV-IGIV Unknown 08/29/2023 Administered Tdap Unknown 01/15/2012 Administered Social History Tobacco Use: Social History Observation Description Date Details (start date - stop date) Never Smoker NA - NA Social History Drug/Alcohol: Social Info Question Answer Notes Drugs Have you used drugs other than those for medical reasons in the past 12 months? No AUDIT-C (Standard) Did you have a drink containing alcohol in the past year? No Points 0 Interpretation Negative Tobacco Use: Social Info Question Answer Notes Tobacco Control (Standard) Tobacco use: Nonsmoker Problems Problem Type SNOMED Code ICD Code Onset Dates Problem Status W/U Status Risk Notes Problem Hypothyroidism (86755783) Hypothyroidism, unspecified (E03.9) Active confirmed Problem Vitamin D deficiency (60570650) Vitamin D deficiency, unspecified (E55.9) Active confirmed Problem Morbid obesity (disorder) (996523887) Morbid (severe) obesity due to excess calories (E66.01) Active confirmed Problem Secondary hypertension (13031184) Secondary hypertension, unspecified (I15.9) Active confirmed Problem Allergic rhinitis (11028632) Other allergic rhinitis (J30.89) Active confirmed Problem Chronic respiratory failure (21799372) Chronic respiratory failure, unspecified whether with hypoxia or hypercapnia (J96.10) Active confirmed Problem Constipation (49684696) Constipation, unspecified (K59.00) Active confirmed Problem Abnormal gait (50763615) Other abnormalities of gait and mobility (R26.89) Active confirmed Problem Hyperlipidemia (34680590) Other hyperlipidemia (E78.49) Active confirmed Problem Vitamin D deficiency (82246724) Vitamin D deficiency (E55.9) Active confirmed Problem Iron deficiency anemia (99183180) Other iron deficiency anemia (D50.8) Active confirmed Vital Signs Heart Rate 86 /min 11/06/2025 Temperature 98.5 degrees Fahrenheit 11/06/2025 Respiratory Rate 18 /min 11/06/2025 Oximetry 95 % 11/06/2025 Blood pressure diastolic 80 mm Hg 11/06/2025 Blood pressure systolic 130 mm Hg 11/06/2025 Encounters Encounter Location [place] [address] 11/06/2025 Tia Daley Acute UTI N39.0 ; Chronic respiratory failure, unspecified whether with hypoxia or hypercapnia J96.10 ; Physical deconditioning R53.81 ; Hypothyroidism, unspecified E03.9 ; Vitamin D deficiency E55.9 and Groin rash [address] [address] 11/08/2025 Tia Daley [address] [address] 11/16/2024 YAO MONTEZ [address] [address] 11/24/2024 Tia Daley Noninfectious gastroenteritis, unspecified type K52.9 ; Acute respiratory failure, unspecified whether with hypoxia or hypercapnia J96.00 ; Hypothyroidism, unspecified E03.9 ; Other hyperlipidemia E78.49 and Secondary hypertension, unspecified I15.[address] [address] 09/28/2025 Tia Daley Acute pneumonia J18. 9 ; Acute UTI N39.0 ; Physical deconditioning R53.81 ; Hypothyroidism, unspecified E03.9 ; Vitamin D deficiency E55.9 and Groin rash [address] [place] [address] 10/02/[address] [address] 10/03/2025 Tia Daley Acute pneumonia J18. 9 ; Acute UTI N39.0 ; Physical deconditioning R53.81 ; Hypothyroidism, unspecified E03.9 ; Vitamin D deficiency E55.9 and Groin rash [address] [place] [address] 10/12/2025 Aleisha Carson Acute pneumonia J18. 9 ; Acute UTI N39.0 and Physical deconditioning R53.[address] [address] 10/17/2025 Tia Daley Acute pneumonia J18. 9 ; Acute UTI N39.0 ; Physical deconditioning R53.81 ; Hypothyroidism, unspecified E03.9 ; Vitamin D deficiency E55.9 and Groin rash [address] [place] [address] 10/24/2025 Tia Daley Acute pneumonia J18. 9 ; Acute UTI N39.0 ; Physical deconditioning R53.81 ; Hypothyroidism, unspecified E03.9 ; Vitamin D deficiency E55.9 and Groin rash [address] [address] 10/26/2025 Tia Daley Acute pneumonia J18. 9 ; Acute UTI N39.0 ; Physical deconditioning R53.81 ; Hypothyroidism, unspecified E03.9 ; Vitamin D deficiency E55.9 and Groin rash [address] [address] 11/09/[address] [address] 11/09/[address] [address] 11/15/[address] [address] 11/20/[address] [address] 11/24/2024 [facility], [facility].[address] [place] [address] 11/26/2024 [facility] [address] [place] [address] 11/26/2024 [facility] [address] [place] [address] 11/27/2024 [facility] [address] [place] [address] 11/27/2024 YAO Giron [place] [address] [place] [address] 09/27/2025 YAO Giron [place] [address] [place] [address] 09/27/2025 [place] [address] [place] [address] 09/27/2025 [place] [address] [place] [address] 10/03/2025 YAO Giron [place] [address] [place] [address] 10/04/2025 YAO Giron [place] [address] [place] [address] 10/11/2025 YAO Giron [place] [address] [place] [address] 10/16/2025 YAO Giron [place] [address] [place] [address] 10/24/2025 YAO Giron [place] [address] [place] [address] 10/25/2025 YAO Giron [place] [address] [place] [address] 10/28/2025 YAO Giron [place] [address] [place] [address] 10/29/2025 YAO Giron [place] [address] [place] [address] 10/29/2025 YAO Giron [place] [address] [place] [address] 11/06/2025 YAO Giron [place] [address] [place] [address] 11/07/2025 [place] [address] [place] [address] 11/08/2025 YAO MONTEZ Assessments Encounter Date Diagnosis (ICD Code) Assessment Notes Treatment Notes Treatment Clinical Notes Section Notes 11/24/2024 Acute respiratory failure, unspecified whether with hypoxia or hypercapnia (ICD-10 - J96.00) Denies any issues with breathing. Well managed on current medication regimen. Continue with current treatment plan and monitoring. 11/24/2024 Noninfectious gastroenteritis, unspecified type (ICD-10 - K52.9) Patient had a small bowel obstruction and had surgery. She has abdominal incision which she is receiving wound care, the drainage is getting better. A culture was taken but no results to date. 11/15 Cipro and Flagyl were started x 7 days d/t entire stomach being very red and hot to the touch. Due to not having any results back but the abdomen is looking slightly better will order 7 more days of Cipro and Flagyl. Explained to her that when the culture is back and a different antibiotic is needed I will send a new script and will let her know. 09/28/2025 Acute pneumonia (ICD-10 - J18.9) Patient was treated in the hospital for pneumonia. She is currently on 3 liters of O2 continuous. Patient reports she has not been using O2 at home. Order given to titrate O2 to keep O2 sats 92% and above. 09/28/2025 Acute UTI (ICD-10 - N39.0) Patient was treated in the hospital for a UTI. She denies any signs and symptoms of a UTI at this time. Continue to monitor and update with any changes. 10/17/2025 Acute pneumonia (ICD-10 - J18.9) Patient was treated in the hospital for pneumonia. She is currently on 3 liters of O2 continuous. Patient reports she has not been using O2 at home. Order given to titrate O2 to keep O2 sats 92% and above. 11/06/2025 Chronic respiratory failure, unspecified whether with [...] breath or any other issues breathing. 11/06/2025 Acute UTI (ICD-10 - N39.0) Patient was treated again in the hospital for UTI with IV meropenem. Patient denies any signs and symptoms of UTI at this time. Continue to monitor and update on changes. Educated patient on ensuring she drinks enough fluids to help with that, not getting any UTIs. 10/26/2025 Acute pneumonia (ICD-10 - J18.9) Patient was treated in the hospital for pneumonia. She is currently on 2.5 liters of O2 continuous. Patient reports she has not been using O2 at home. 10/12/2025 Acute pneumonia (ICD-10 - J18.9) Stable and resolved at this time. Continue oxygen as ordered. 10/12/2025 Acute UTI (ICD-10 - N39.0) ENC FLUIDS FOR HYDRATION ENC PT TO KEEP BLADDER EMPTY BY VOIDING EVERY 2 HOURS AND NEEDED GOOD SKIN CARE AFTER VOIDING CRANBERRY JUICE OR MAY ADD LEMON JUICE TO WATER TO REDUCE THE ACIDITY IN THE BLADDER 10/24/2025 Acute pneumonia (ICD-10 - J18.9) Patient was treated in the hospital for pneumonia. She is currently on 2.5 liters of O2 continuous. Patient reports she has not been using O2 at home. Order given to titrate O2 to keep O2 sats 92% and above. 10/03/2025 Acute pneumonia (ICD-10 - J18.9) Patient was treated in the hospital for pneumonia. She is currently on 3 liters of O2 continuous. Patient reports she has not been using O2 at home. Order given to titrate O2 to keep O2 sats 92% and above. 10/03/2025 Acute UTI (ICD-10 - N39.0) Patient was treated in the hospital for a UTI. She denies any signs and symptoms of a UTI at this time. Continue to monitor and update with any changes. 10/24/2025 Acute UTI (ICD-10 - N39.0) Patient was treated in the hospital for a UTI. She denies any signs and symptoms of a UTI at this time. Continue to monitor and update with any changes. 10/12/2025 Physical deconditioning (ICD-10 - R53.81) Utilizes a wheelchair for mobility. Continue therapy to progress towards pic goals Report changes or concerns as needed 10/26/2025 Acute UTI (ICD-10 - N39.0) Patient was treated in the hospital for a UTI. She denies any signs and symptoms of a UTI at this time. Continue to monitor and update with any changes. 11/06/2025 Physical deconditioning (ICD-10 - R53.81) Patient is working with PT/OT for strengthening and mobility. Reports therapy is going well. Utilizes a wheelchair for ambulation. 10/17/2025 Acute UTI (ICD-10 - N39.0) Patient was treated in the hospital for a UTI. She denies any signs and symptoms of a UTI at this time. Continue to monitor and update with any changes. 09/28/2025 Physical deconditioning (ICD-10 - R53.81) Patient is working with PT/OT for strengthening and mobility. Reports therapy is going well. Utilizes a wheelchair for ambulation. 11/24/2024 Hypothyroidism, unspecified (ICD-10 - E03.9) 11/09/24- TSH 9.088- New script increasing levothyroxine being sent to [facility] in [place] per patient choice. 11/24/2024 Other hyperlipidemia (ICD-10 - E78.49) 11/09/24- lipid panel- Cholestrol 257, Triglycerides , and LDL 159- Atorvastatin increased to 40mg daily. Patient aware. 09/28/2025 Hypothyroidism, unspecified (ICD-10 - E03.9) On 09/28/2025, TSH was elevated at 8.247. Patient reports that she had not been taking her thyroid medication correctly until she was in the hospital. Order given to repeat TSH and free T4 in four weeks. 10/17/2025 Physical deconditioning (ICD-10 - R53.81) Patient is [...] visit to redraw TSH and free T4. 10/26/2025 Physical deconditioning (ICD-10 - R53.81) Patient is working with PT/OT for strengthening and mobility. Reports therapy is going well. Utilizes a wheelchair for ambulation. 10/24/2025 Physical deconditioning (ICD-10 - R53.81) Patient is working with PT/OT for strengthening and mobility. Reports therapy is going well. Utilizes a wheelchair for ambulation. 10/03/2025 Physical deconditioning (ICD-10 - R53.81) Patient is working with PT/OT for strengthening and mobility. Reports therapy is going well. Utilizes a wheelchair for ambulation. 10/24/2025 Hypothyroidism, unspecified (ICD-10 - E03.9) On 09/28/2025, TSH was elevated at 8.247. Patient reports that she had not been taking her thyroid medication correctly until she was in the hospital. Order given to repeat TSH and free T4 in four weeks. Labs to be drawn on 10/31/2025. 10/03/2025 Hypothyroidism, unspecified (ICD-10 - E03.9) On 09/28/2025, TSH was elevated at 8.247. Patient reports that she had not been taking her thyroid medication correctly until she was in the hospital. Order given to repeat TSH and free T4 in four weeks. 10/26/2025 Hypothyroidism, unspecified (ICD-10 - E03.9) On 09/28/2025, TSH was elevated at 8.247. Patient reports that she had not been taking her thyroid medication correctly until she was in the hospital. Order given to repeat TSH and free T4 in four weeks. Labs to be drawn on 10/31/2025. 10/17/2025 Hypothyroidism, unspecified (ICD-10 - E03.9) On 09/28/2025, TSH was elevated at 8.247. Patient reports that she had not been taking her thyroid medication correctly until she was in the hospital. Order given to repeat TSH and free T4 in four weeks. 11/06/2025 Vitamin D deficiency (ICD-10 - E55.9) On 09/28/2025, vitamin D level was very low at 5. Order was given to start vitamin D3 50,000 units once per week and repeat vitamin D level in four weeks. Due to patient arriving back from the hospital on 10/31/25, her labs were not drawn. We will give order on next visit to redraw vitamin D. 09/28/2025 Vitamin D deficiency (ICD-10 - E55.9) On 09/28/2025, vitamin D level was very low at 5. Order was given to start vitamin D3 50,000 units once per week and repeat vitamin D level in four weeks. 11/24/2024 Secondary hypertension, unspecified (ICD-10 - I15.9) BP stable. Well managed on current medication regimen. Continue with current treatment plan and monitoring. 09/28/2025 Groin rash (ICD-10 - R21) Patient has a fungal rash noted to her buttocks, back of legs, and groin area. Patient is currently using antifungal cream as well as order was given for diflucan 100 mg daily x7 days and update with any changes. 10/17/2025 Vitamin D deficiency (ICD-10 - E55.9) On 09/28/2025, vitamin D level was very low at 5. Order was given to start vitamin D3 50,000 units once per week and repeat vitamin D level in four weeks. 10/26/2025 Vitamin D deficiency (ICD-10 - E55.9) On 09/28/2025, vitamin D level was very low at 5. Order was given to start vitamin D3 50,000 units once per week and repeat vitamin D level in four weeks. Labs to be drawn on 10/31/2025. 11/06/2025 Groin rash (ICD-10 - R21) Staff report that her groin, buttocks and legs area is still red and raw looking, patient reports that it is still itchy at times. They continue to use the Miconazole cream. Continue to monitor and update with any changes. 10/03/2025 Vitamin D deficiency (ICD-10 - E55.9) On 09/28/2025, vitamin D level was very low at 5. Order was given to start vitamin D3 50,000 units once per week and repeat vitamin D level in four weeks. 10/24/2025 Vitamin D deficiency (ICD-10 - E55.9) On 09/28/2025, vitamin D level was very low at 5. Order was given to start vitamin D3 50,000 units once per week and repeat vitamin D level in four weeks. Labs to be drawn on 10/31/2025. 10/26/2025 Groin rash (ICD-10 - R21) Patient reports that the fungal rash noted to her buttocks, legs and groin area seems to be getting better since starting the miconazole cream. She reports that it is still itchy at times, but not itchy all the time like it was prior to that. Staff report the rash seems to be getting better. Patient denies any changes to the rash at this time. 10/17/2025 Groin rash (ICD-10 - R21) Patient has a fungal rash noted to her buttocks, back of legs, and groin area. Patient continues to use antifungal cream, patient received a total of 2 weeks of Diflucan that did not seem to help. Order given today to start miconazole 2% cream b.i.d. until healed. 10/24/2025 Groin rash (ICD-10 - R21) Patient reports that the fungal rash noted to her buttocks, legs and groin area seems to be getting better since starting the miconazole cream. She reports that it is still itchy at times, but not itchy all the time like it was prior to that. Staff report the rash seems to be getting better. 10/03/2025 Groin rash (ICD-10 - R21) Patient has a fungal rash noted to her buttocks, back of legs, and groin area. Patient is currently using antifungal cream, order given today to extend the Diflucan 100 mg daily x7 more days. 11/24/2024 Other Ok to discharge patient with current in house treatment plan and medications.Alfredo nt education provided and all questions/concern s addressed. Patient does not have PCP, gave her a list of PCPs in [place]. Follow up with PCP in one week.Reconciled home medications sent to [facility] in [place] on [address]. 09/28/2025 Other Continue curren t treatment plan.Staff to continue to monitor and report any changes.Patient education provided and questions/concern s addressed.Follow up in one week unless necessary sooner. 10/03/2025 Other Continue curren t treatment plan.Staff to continue to monitor and report any changes.Patient education provided and questions/concern s addressed.Follow up in one week unless necessary sooner. 10/12/2025 Other REVIEWED HIPAA RIGHTS PRIVACY PRACTICES WITH PT/FAMILY/CAREGIV ER COPY OF HIPAA RIGHTS PRIVACY PRACTICES GIVEN TO PT/FAMLY/CAREGIVE R 10/17/2025 Other Continue curren t treatment plan.Staff to continue to monitor and report any changes.Patient education provided and questions/concern s addressed.Follow up in one week unless necessary sooner. 10/24/2025 Other Continue curren t treatment plan.Staff to continue to monitor and report any changes.Patient education provided and questions/concern s addressed.Follow up in one week unless necessary sooner. 10/26/2025 Other Continue curren t treatment plan.Staff to continue to monitor and report any changes.Patient education provided and questions/concern s addressed.Follow up in one week unless necessary sooner. 11/06/2025 Other Patient with multiple chronic conditions, each requiring ongoing management and coordination of care. Reviewed and interpreted most recent laboratory results available, diagnostic studies, and prior specialist notes. Staff to continue to monitor and report any changes. Patient education provided and questions/concern s addressed. Close follow-up required; reassess in 3-7 days or sooner if condition worsens. Plan Of Treatment Pending Test Test Name Order Date Vitamin D, 25-Hydroxy 11/01/2025 Future Test Test Name Order Date TSH+Free T4 10/28/2025 Next Appt Details Provider Name:Tia Daley , 11/14/2025 08:45:00 AM, [address] [place] [address], [id number], Provider Name:Tia Daley , 11/16/2025 10:45:00 AM, [address], [address], Insurance Providers Payer Name Payer Address Payer Phone Subscriber Number Group Number Insured Name Patient Relationship to Insured Coverage Start Date Coverage End Date [facility] [address] [address] [place] [address] [id number] June Salas Self - patient is the insured [employer] of [place] [address] [facility] [place], [place] [id number] [phone] [id number] June Petty Self - patient is the insured Medical (General) History Medical History History ICD Code Noninfective gastroenteritis and colitis , unspecified K52.9 Acute respiratory failure, unspecified w hether with hypoxia or hypercapnia J96.00 Muscle weakness (generalized) M62.81 Other abnormalities of gait and mobility R26.89 Acute kidney failure, unspecified N17.9 Unspecified intestinal obstr uction, unspecified as to partial versus complete obstruction K56.609 Morbid (severe) obesity due to excess ca lories E66.01 Urinary tract infection, site not specif ied N39.0 Infection of obstetric surgical wound, u nspecified O86.00 Ileus, unspecified K56.7 Need for assistance with personal care Z 74.1 Other hyperlipidemia E78.49 Other iron deficiency anemia D50.8 Secondary hypertension, unspecified I15. 9 Other allergic rhinitis J30.89 Generalized abdominal pain R10.84 Nausea with vomiting, unspecified R11.2 Hypothyroidism, unspecified E03.9 Pain, unspecified R52 Constipation, unspecified K59.00 Surgical History Surgery Date(Month/Year) BREAST SURGERY MOLE REMOVAL [facility] CATARACT SURGERY ABDOMEN SURGERY PROC UNLISTED
--- OUTSIDE RECORDS SUMMARY | 2025-11-09 11:21 | XMS_ITS | Clinical Summary ---
Author Organization [facility] Address [address] [place] [address] Care Team Providers Care Scraper Tender Name Role Phone None, Physician Primary Care Provider Unavailabl e Source Comments [facility],non-owned Affiliates and Associated Physician Practices is amultiple site organization consisting of ambulatory clinics and hospital sitesin [place] and [place]. This disclosure is being madepursuant to the Care Everywhere program and may not contain all information available regarding this patient. Last updated 18.[facility] Allergies No known active allergies Medications * Be aware that medications may not be up to date on this document. Alwaysverify current medications with the patient. atorvastatin (Lipitor) 80 MG tablet Take 1 (one) tablet by mouth at bedtime for 90 days 30 tablet 2 01/19/2025 Active aspirin (Aspirin) 81 MG chew tablet Take 1 (one) tablet by mouth once daily for 90 days 90 tablet 01/20/2025 Active Active Problems Problem Noted Date Diagnosed Date Aphasia 01/18/2025 Speech disturbance, unspecified type 01/18/2025 AMS (altered mental status) 01/18/2025 Social History Tobacco Use Types Packs/Day Years Used Date Smoking Tobacco: Never Assessed AUDIT-C Answer Date Recorded Q1: How often do you have a drink containing alcohol? Never 01/18/2025 Q2: How many drinks containi ng alcohol do you have on a typical day when you are drinking? Patient does not drink Q3: How often do you have si x or more drinks on one occasion? Never 01/18/2025 Overall Financial Resource Strain (CARDIA) Answe r Date Recorded How hard is it for you to pa y for the very basics like food, housing, medical care, and heating? Not hard at all 01/18/2025 PHQ-2 Answer Date Recorded Patient Health Questionnaire-2 Score 0 01/18/2025 [facility] [place] [facility] Occup[facility] - Occupational Stress Questionnaire Answer Date Recorded Do you feel stress - tense, restless, nervous, or anxious, or unable to sleep at night because your mind is troubled all the time - these days? Not at all 01/18/2025 Hunger Vital Sign Answer Date Recorded Within the past 12 months, y ou worried that your food would run out before you got the money to buy more. Never true 01/18/20 25 Within the past 12 months, t he food you bought just didn't last and you didn't have money to get more. Never true 01/18/2025 PRAPARE - Transportation Answer Date Re corded In the past 12 months, has l ack of transportation kept you from medical appointments or from getting medications? No 12/24 In the past 12 months, has l ack of transportation kept you from meetings, work, or from getting things needed for daily living? No 01/18/2025 Housing Stability Vital Sign Answer Octavio e Recorded In the last 12 months, was t here a time when you were not able to pay the mortgage or rent on time? No 01/18/2025 In the past 12 months, how m any times have you moved where you were living? 0 01/18/2025 At any time in the past 12 m onths, were you homeless or living in a assisted (including now)? No 01/18/2025 Comments Unknown Sex and Gender Information Value Date Recorded Sex Assigned at Not on file Legal Sex Female 3:15 PM EMPLOYEE COMMUNICATIONS INTERN Gender Identity Not on file Sexual Orientation Not on file Last Filed Vital Signs Vital Sign Reading Time Taken Comments Blood Pressure 183/87 01/19/2025 2:07 PM EMPLOYEE COMM[employer]ICATION[employer] INTERN Pulse 72 01/19/2025 2:07 PM EMPLOYEE COMM[employer]ICATIONS INTERN Temperature 36.9 C (98.4 F) 01/19/2025 4:20 PM EMPLOYEE COMM[employer]ICATIONS INTERN Respiratory Rate 16 01/19/2025 4:20 PM EMPLOYEE COMM[employer]ICATIONS INTERN Oxygen Saturation 99% 01/19/2025 4:20 PM EMPLOYEE COMMUNICATIONS INTERN Inhaled Oxygen Concentration - - Weight 141 kg (310 lb 12.8 oz) 01/18/2025 10:48 PM EMPLOYEE COMMUNICATIONS INTERN Height 162.6 cm (5' 4) 01/18/2025 10:23 PM EMPLOYEE COMMUNICATIONS INTERN Body Mass Index 53.35 01/18/2025 10:23 PM EMPLOYEE COMMUNICATIONS INTERN Plan of Treatment Health Maintenance Due Date Last Done Comments BONE DENSITY TESTING 1955 COLOGUARD (AGES 45-75) - COLON CA SCREENING 1955 COLON MONITORING 1955 COLONOSCOPY - COLON CA SCREENING 1955 CT COLONOGRAPHY - COLON CA SCREENING 1955 Colorectal Cancer Screening 1955 FIT - COLON CA SCREENING 1955 FLEX SIG - COLON CA SCREENING 1955 MAMMOGRAM 1955 HEPATITIS C SCREENING 12/16/1973 DTAP/TDAP/TD VACCINES (1 - Tdap) 1974 PNEUMOCOCCAL VACCINE 50+ (1 of 1 - PCV) 2005 Respiratory Syncytial Virus (RSV) Vaccine Pt: or over 60 yrs (1 - Risk 50-74 years 1-dose series) 2005 ZOSTER VACCINE (1 of 2) 2005 COVID-19 VACCINE (3 - season) 2025 04/18/2021, 03/27/2021 INFLUENZA VACCINE (#1) 2025 , 09/13/2019, 12/16/2018, Additional history exists LIPID TESTING 01/19/2030 01/19/2025 DEPRESSION SCREENING Completed 01/18/2025 HEPATITIS B VACCINE Aged Out No longe r eligible based on patient's age to complete this topic HIB VACCINE Aged Out No longer eligi ble based on patient's age to complete this topic HPV VACCINE Aged Out No longer eligi ble based on patient's age to complete this topic MENINGOCOCCAL (Group B) VACCINE SHARED DECISION-MAKING Aged Out No longer eligible based on patient's age to complete this topic MENINGOCOCCAL GROUPS A/C/Y/W VACCINE Aged Out No longer eligible based on patient's age to complete this topic Procedures Procedure Name Priority Date/Time Associated Diagnosis Comments LIPID PROFILE Routine 01/19/2025 1:47 AM EMPLOYEE COMMUNICATIONS INTERN from Last 3 Months or Most Recently Relevant to Health Maintenance Results * (ABNORMAL) LIPID PROFILE (01/19/2025 1:47 AM [facility]) Cholesterol Total 221(H) <200 mg/dL 01/19/2025 3:08 AM [facility] HDL 69 >40 mg/dL 01/19/2025 3:08 AM [facility] Comment: ATP III Classification of HDL Cholesterol: <40 mg/dL: Considered a major risk factor. >60 mg/dL: Considered a negative risk factor. LDL Calculated 125(H) <100 mg/dL 01/19/2025 3:08 AM [facility] Comment: ATP III Classification of LDL Cholesterol: <100 mg/dL: Optimal 100 - 129 mg/dL: Near Optimal/Above Optimal 130 - 159 mg/dL: Borderline High 160 - 189 mg/dL: High >190 mg/dL: Very High Triglycerides 137 <150 mg/dL 01/19/2025 3:08 AM [facility] Comment: ATP III Classification of Triglycerides: <150 mg/dL: Normal 150 - 199 mg/dL: Borderline High 200 - 400 mg/dL: High >500 mg/dL: Very High Blood BLOOD SPECIMEN / Unknown Lab Venipuncture / Unknown 01/19/2025 1:47 AM EMPLOYEE COMMUNICATIONS INTERN 01/19/2025 2:39 AM [facility] Magda Hatfield MD LAB - CHEMISTRY ORDERABLES Final Result [facility] [address] [place] [address], [facility] [phone] from Last 3 Months or Most Recently Relevant to Health Maintenance Insurance MEDICARE Advance Directives * Full Code (Latest Code Status on File) Date Activated Date Inactivated Comments 01/18/2025 4:24 PM 01/19/2025 7:09 PM Care Teams Scraper Tender Relationship Specialty Start Date End Date None, Physician PCP - General 01/18/25
--- OUTSIDE RECORDS SUMMARY | 2025-11-09 11:21 | XMS_ITS | Clinical Summary ---
Author Organization [facility] Address [address] [place] [address] Care Team Providers Care School Secretary Name Role Phone Gamaliel Grajeda MD Unavailable [phone] Gamaliel Grajeda MD Primary Care Provider [phone] Allergies No known active allergies Medications atorvastatin [...] 1 tablet (137 mcg total) by mouth materials assistant before breakfast Active allopurinoL (ZYLOPRIM) 300 mg [...] 8:55 AM CDT): I endorse admission to [facility] care. The patient is at risk of [...] Tobacco: Never Tobacco Cessation:Counseling Given: Not Answered [facility] Utilities Answer Date Recorded In the past 12 months has [employer], gas, oil, or water [employer] threatened to shut off services in your [...] often do you attend chur ch or shinto services? Never 03/24/2024 Do you belong to any clubs o r organizations such as tenriism groups, unions, fraternal or athletic groups, or [...] place to sleep or slept in a retirement (including now)? No 03/24/2024 Personal Safety Answer Date Recorded Have you ever been in or are you currently in a harmful physical or emotional relationship or is someone making you feel afraid or unsafe? Denies 03/24/2024 Comments No Sex and Gender Information Value Date Recorded Sex Assigned at Not on file Legal Sex Female 2:13 AM [employer] Gender Identity Not on file Sexual Orientation [...] 2025 04/18/2021, 03/27/2021 Influenza Vaccine (#1) 2025 , 09/13/2019, 12/16/2018, Additional history exists Procedures Procedure [...] Current interpretive data was last reviewed 2021. [facility], [address] [place] [address], [place]., [address] Blood 04/11/2024 7:20 AM CDT 04/11/2024 7:39 AM CDT us Kirsty Paniagua NP LAB BLOOD ORDERABLES Final Result [facility] [address] [place] [address] * (ABNORMAL) Hemoglobin A1c (03/24/2024 2:13 AM CDT) Hgb A1C 6.1(H) 4.0 - 5.6 % Estimated Average Glucose 128 mg/dL [facility] Comment: The ADA recommends reporting an estimated Average Glucose (eAG) with all Hemoglobin A1c results using the equation derived from a study of 507 normal and diabetic adults. Minority populations were underrepresented and children were not included. (Diabetes Care 31:5452-6169, 2008). The eAG is not equivalent to a fasting glucose. Blood 03/24/2024 2:13 AM CDT 03/24/2024 3:38 AM CDT us Rip Miguel Trujillo COSTUME SHOP COORDINATOR LAB BLOOD ORDERABLES Fin al Result [facility] [address] [facility] [place] [address] * Lipid panel (03/24/2024 2:13 [...] 2018. HDL 63 >=40 mg/dL [facility] Comment: Interpretive Data [...] CDT 03/24/2024 3:38 AM CDT us Rip Taberneelimao Cassandra COSTUME SHOP COORDINATOR LAB BLOOD ORDERABLES Fin al Result [facility] [address] [facility] [place] [address] from Last 3 Months or Most Recently Relevant to Health Maintenance Insurance [facility] H[facility]/PPO Address: [place] [id number] MEDICARE [facility] H[facility]/PPO Address: [address] [address] Advance Directives For more information, please contact: [phone] * LIMITED - No CPR (Latest Code [...] 9:59 PM 07/18/2022 10:06 PM Care Teams School Secretary Relationship Specialty Start Date End Date Gamaliel Grajeda MD PCP - General Pulmonary Disease 10/27/24 Gamaliel Grajeda MD Consulting Physician Pulmonary Disease 10/27/24
[2025-11-09 11:26] LABS: INR 1.0; Prothrombin Time 13.1 Seconds (11.1-14.7)
[2025-11-09 11:27] LABS: Partial Thromboplastin Time 28.1 Seconds (22.3-36.8)
[2025-11-09 11:31] LABS: Alanine Aminotransferase 20 U/L (6-35); Albumin Level 3.6 g/dL (3.5-5.1); Alkaline Phosphatase 106 U/L (38-126); Aspartate Amino Transferase 27 U/L (14-36); Bilirubin,Total 0.4 mg/dL (0.2-1.3); Blood Urea Nitrogen 22 mg/dL (7-17); Calcium 8.6 mg/dL (8.4-10.2); Carbon Dioxide > 40 mmol/L (22-30); Chloride 94 mmol/L (98-107); Estimated CRCL calculation 59 ml/min; Estimated Glomerular Filt Rate 45; Glucose 154 mg/dL (65-110); NT Pro B Type Natriuretic Pept 1890 pg/mL (19.9-100); Potassium 5.0 mmol/L (3.4-5.0); Sodium 141 mmol/L (137-145); Total Protein 7.1 g/dL (6.3-8.2); Troponin I 0.080 ng/mL (0.000-0.034)
[2025-11-09 11:40] LABS: CRP 24.5 mg/dL (<1.0)
[2025-11-09 12:03] LABS: Alveolar/Arterial O2 Gradient 316.7 mmHg; Carboxyhemoglobin 1.3 % THb (0-2.0); Fractional Inspired Oxygen 100 %; HCO3 ABG 43.7 mEq/l (22.0-26.0); Methemoglobin ABG 0.3 %THb (0-1.5); Oxygen Content ABG 19.4 %vol (16.0-22.0); Oxygen Saturation ABG 99.7 % (95.0-100.0); PO2 ABG 314.4 mmHg (80.0-100.0); PO2 FiO2 Ratio Arterial Blood 3.14 %; Reduced Hemoglobin 0.1 %THb (0-5.0)
[2025-11-09 12:17] LABS: Modified Allen's Test Pass; PCO2 ABG 81.9 mmHg (35.0-45.0); Site Drawn LEFT RADIAL
[2025-11-09 12:18] LABS: Arterial Blood Gas Ventilator rate 16 /MIN
[2025-11-09 12:19] LABS: Arterial Blood Gas Tidal Volume 420 ml
--- NOTE | 2025-11-09 12:20 | PC.NURSE ---
Unable to obtain temperature upon arrival to ED.
--- NOTE | 2025-11-09 12:20 | PCRCNOTE ---
ABG ordered when patient initially came in. pt was put on vent and ABGs done after an hour
--- NOTE | 2025-11-09 12:25 | PC.NURSE ---
Spoke to pt sister at this time regarding pt condition. All questions answered.
--- NOTE | 2025-11-09 12:48 | ED.SOB ---
HPI - SOB/Dyspnea General Chief Complaint: Shortness of Breath/Dyspnea Stated Complaint: resp. failure Time Seen by Provider: 11/09/25 10:44 History of Present Illness HPI Narrative: Patient is a 69-year-old female who presents ER with respiratory failure. She was at her facility in became more more short of breath. She was diagnosed with COVID in the last 2 days. Due to her distress in low oxygenation staff asked patient if she would want to be intubated or be placed on a BiPAP and she reported to them that she did despite being DNR. EMS arrived and patient became unresponsive and she was being bagged. He then intubated the patient in the field. Patient has thick yellow secretions coming from the ET tube on arrival here. Related Data Home Medications ?Medication ?Instructions ?Recorded ?Confirmed ?Last Taken ?Type allopurinol 100 mg tablet 100 mg PO DAILY 10/27/24 11/09/25 09/10/25 History atorvastatin 20 mg tablet 20 mg PO DAILY 10/27/24 11/09/25 09/10/25 History ferrous sulfate 325 mg (65 mg 325 mg PO DAILY 10/27/24 11/09/25 09/10/25 History iron) tablet furosemide 40 mg tablet 40 mg PO DAILY 10/27/24 11/09/25 09/10/25 History gabapentin 300 mg capsule 300 mg PO TID 10/27/24 11/09/25 09/10/25 History levothyroxine 137 mcg tablet 137 mcg PO DAILY 10/27/24 11/09/25 09/10/25 History montelukast 10 mg tablet 10 mg PO HS 10/27/24 11/09/25 09/10/25 History acetaminophen 500 mg tablet 1,000 mg PO Q6H PRN fever or pain 10/29/25 11/09/25 Unknown History (Tylenol Extra Strength) cholecalciferol (vitamin D3) 1,250 1,250 mcg PO WEEKLY 10/29/25 11/09/25 10/23/25 History mcg (50,000 unit) capsule miconazole nitrate 2 % topical 1 applic topical BID 10/29/25 11/09/25 10/28/25 21:45 History cream urea 20 % topical cream 1 applic topical DAILY 10/29/25 11/09/25 Unknown History Allergies Allergy/AdvReac Type Severity Reaction Status Date / Time No Known Allergies Allergy Verified 11/09/25 15:10 Review of Systems Review of Systems: ROS unobtainable: Yes unobtainable due to endotracheal tube PMFSH Past Medical History Medical History (Updated 11/09/25 @ 19:22 by Tk Raymundo MD) Congestive heart failure Chronic respiratory failure Asthma Cardiomyopathy Echo 10/28/2024ummary 1. Complete two-dimensional, color flow and Doppler transthoracic echocardiogram is performed. 2. Left ventricle is normal size and systolic function. There is concentric left ventricular remodeling. The left ventricular ejection fraction is visually estimated to be 60-65%. 3. The right ventricle is normal in size and systolic function. 4. There is no significant valvular disease Obesity Iron deficiency anemia Hypothyroidism Gout Hypertension Surgical History Surgical History (Updated 09/22/25 @ 07:03 by Eve Freitas APRN) History of colon resection Family History Family History Mother Breast cancer Lung cancer Diabetes mellitus Hypertension Hyperlipemia Amputation of leg Father Myocardial infarct Hypertension Hyperlipemia Sibling Uterine cancer Diabetes mellitus Hypertension Sibling Rh negative blood type in fetus Sibling Heart problem Hypertension Myocardial infarct Diabetes mellitus Social History Social History (Updated 09/22/25 @ 07:06 by Eve Freitas APRN) Social History: She lives with her sister and is single. She has never been or had any children. Code status: Full code Smoking status: Never smoker Second hand tobacco smoke exposure: Yes Alcohol intake: never Substance use: never Substance use type: does not use Lack of Transportation: No Lack of Food: Never True Current Housing: I Have Housing Concerned About Future Housing: No Difficulty Paying Gas/Electric Bills: No Difficulty Paying for Meds: No Currently Unemployed: No Education: High School Diploma/GED Difficulty w/ Childcare or Family Care: No Spiritual care concerns: No Exam Narrative: GENERAL: Ill-appearing, morbidly obese, gagging on ET tube. HEAD: Normocephalic, atraumatic. EYES: PERRL and EOMI. ENT: Mucous membranes moist. CHEST: Clear to auscultation. No respiratory distress. HEART: Tachycardic and regular.. Normal peripheral pulses. ABDOMEN: Soft, nontender, nondistended. EXTREMITIES: Normal range of motion. No edema. SKIN: Warm, dry, no rash. NEURO: Intubated and sedated. Moves extremities to pain. Gag intact. Course Course Emergency Course: Admit to hospitalist service. ICU consult as well. Patient being given treatment for possible bacterial pneumonia but also for severe COVID with remdesivir and dexamethasone. Blood pressure responding to IV fluid. Discussed case with patient's sister who will be her power of employment law attorney as patient has no other relatives. She wishes for patient to remain intubated and is okay with central line access and IV vasopressors if required. She does not want the patient to have chest compressions. Vital Signs Vital signs: Vital Signs Pulse Rate 110 H 11/09/25 10:41 Respiratory Rate 16 11/09/25 10:41 Blood Pressure 105/59 L 11/09/25 10:41 Pulse Oximetry 100 11/09/25 10:41 Oxygen Delivery Room Air 11/09/25 10:41 Temperature 100.3 F H 11/09/25 18:00 Pulse Rate 59 L 11/09/25 18:00 Respiratory Rate 16 11/09/25 18:00 Blood Pressure 99/49 L 11/09/25 18:00 Pulse Oximetry 97 11/09/25 18:00 Oxygen Delivery Mechanical Ventilation 11/09/25 16:59 Fraction of Inspired Oxygen 50 11/09/25 16:59 [facility] Differential Diagnosis Differential Diagnosis: COVID pneumonia, sepsis, hypercapnia, VEE amongst others Lab Data [facility] Lab Attestation statement: I personally reviewed the patient's lab results. 11/09/25 10:56 11/09/25 10:56 Labs: Lab Results 11/09/25 11/09/25 11/09/25 Range/Units 10:56 11:55 13:09 WBC 12.8 H (4.5-10.0) K/mm3 RBC 4.63 (4.2-5.4) M/mm3 Hgb 13.4 (12.0-15.0) g/dL Hct 47.2 H (37.0-47.0) % MCV 101.9 H (80-100) fl MCH 28.9 (26-34) pg MCHC 28.4 L (32-36) g/dl RDW 14.4 (11.5-14.5) % Plt Count 198 (150-375) k/mm3 MPV 9.7 (7.4-10.4) fl Immature Gran % (Auto) 3.3 H (0-0.5) % Neut % (Auto) 85.0 H (45.5-73.1) % Lymph % (Auto) 2.8 L (18.3-44.2) % Dade % (Auto) 7.3 (2.6-8.5) % Eos % (Auto) 1.3 (0-4.4) % Baso % (Auto) 0.3 (0.2-1.2) % Lymph # (Auto) 0.36 L (0.9-3.2) K/mm3 Dade # (Auto) 0.9 H (0.1-0.6) K/mm3 Eos # (Auto) 0.2 (0-0.3) K/mm3 Baso # (Auto) 0.0 (0.0-0.1) K/mm3 Abs Immat Gran (auto) 0.42 H (0.00-0.031) K/mm3 Absolute Neuts (auto) 10.9 H (1.3-6.7) K/mm3 Absolute Nucleated RBC 0.020 H (0.0-0.012) K/mm3 Nucleated RBC % 0.2 (0.0-0.2) % PT 13.1 (11.1-14.7) Seconds INR 1.0 APTT 28.1 (22.3-36.8) Seconds Methemoglobin 0.3 (0-1.5) %THb Minute Volume Not Reportable Vent Mode Cmv Tidal Volume 420 ml PEEP 5 cmH2O Peak Inspir Pressure Not Reportable Pressure Support Not Reportable Sodium 141 (137-145) mmol/L Potassium 5.0 (3.4-5.0) mmol/L Chloride 94 L (98-107) mmol/L Carbon Dioxide > 40 H (22-30) mmol/L Anion Gap (4-12) mmol/L BUN 22 H D (7-17) mg/dL Creatinine 1.18 H (0.7-1.0) mg/dL Estim Creat Clear Calc 59 ml/min Estimated GFR 45 L (59 - ) Glucose 154 H (65-110) mg/dL Lactic Acid 1.7 (0.7-2.0) mmol/L Calcium 8.6 (8.4-10.2) mg/dL Total Bilirubin 0.4 (0.2-1.3) mg/dL AST 27 (14-36) U/L ALT 20 (6-35) U/L Alkaline Phosphatase 106 (38-126) U/L Troponin I 0.080 H* (0.000-0.034) ng/mL C-Reactive Protein 24.5 H (<1.0) mg/dL NT-Pro-B Natriuret Pep 1890 H (19.9-100) pg/mL Total Protein 7.1 (6.3-8.2) g/dL Albumin 3.6 (3.5-5.1) g/dL Nasal MRSA (PCR) Detected A* (NOT DETECTE) 11/09/25 Range/Units 13:28 WBC (4.5-10.0) K/mm3 RBC (4.2-5.4) M/mm3 Hgb (12.0-15.0) g/dL Hct (37.0-47.0) % MCV (80-100) fl MCH (26-34) pg MCHC (32-36) g/dl RDW (11.5-14.5) % Plt Count (150-375) k/mm3 MPV (7.4-10.4) fl Immature Gran % (Auto) (0-0.5) % Neut % (Auto) (45.5-73.1) % Lymph % (Auto) (18.3-44.2) % Dade % (Auto) (2.6-8.5) % Eos % (Auto) (0-4.4) % Baso % (Auto) (0.2-1.2) % Lymph # (Auto) (0.9-3.2) K/mm3 Dade # (Auto) (0.1-0.6) K/mm3 Eos # (Auto) (0-0.3) K/mm3 Baso # (Auto) (0.0-0.1) K/mm3 Abs Immat Gran (auto) (0.00-0.031) K/mm3 Absolute Neuts (auto) (1.3-6.7) K/mm3 Absolute Nucleated RBC (0.0-0.012) K/mm3 Nucleated RBC % (0.0-0.2) % PT (11.1-14.7) Seconds INR APTT (22.3-36.8) Seconds Methemoglobin 0.2 (0-1.5) %THb Minute Volume Not Reportable Vent Mode Cmv Tidal Volume 420 ml PEEP 5 cmH2O Peak Inspir Pressure Not Reportable Pressure Support Not Reportable Sodium (137-145) mmol/L Potassium (3.4-5.0) mmol/L Chloride (98-107) mmol/L Carbon Dioxide (22-30) mmol/L Anion Gap (4-12) mmol/L BUN (7-17) mg/dL Creatinine (0.7-1.0) mg/dL Estim Creat Clear Calc ml/min Estimated GFR (59 - ) Glucose (65-110) mg/dL Lactic Acid (0.7-2.0) mmol/L Calcium (8.4-10.2) mg/dL Total Bilirubin (0.2-1.3) mg/dL AST (14-36) U/L ALT (6-35) U/L Alkaline Phosphatase (38-126) U/L Troponin I (0.000-0.034) ng/mL C-Reactive Protein (<1.0) mg/dL NT-Pro-B Natriuret Pep (19.9-100) pg/mL Total Protein (6.3-8.2) g/dL Albumin (3.5-5.1) g/dL Nasal MRSA (PCR) (NOT DETECTE) ABG Data ABG results: 11/09/25 11/09/25 11:55 13:28 Puncture Site Left radial Right radial ABG pH 7.345 L 7.454 H ABG pCO2 81.9 H* 49.4 H ABG pO2 314.4 H 123.9 H ABG PO2/FiO2 Ratio 3.14 2.48 ABG HCO3 43.7 H 33.9 H ABG O2 Saturation 99.7 98.6 ABG O2 Content 19.4 17.8 ABG Base Excess 14.1 8.6 A-a Gradient 316.7 177.0 Oxyhemoglobin 98.3 97.6 Carboxyhemoglobin 1.3 1.2 Reduced Hemoglobin 0.1 1.0 Total Hemoglobin 13.5 12.8 O2 Delivery Device Ventilator Ventilator O2 Liters/Min Not Reportable Not Reportable Vent Rate 16 16 FiO2 100 50 Imaging Data Radiologist's impression: ITS Impressions Chest X-Ray 11/09/25 11:35 IMPRESSION: 1. Perihilar changes may represent vascular congestion and bilateral perihilar edema; parahilar pneumonia could have a similar appearance. 2. Endotracheal tube and possible gastric catheter in the midesophagus. Abdomen X-Ray 11/09/25 13:22 Impression: 1. No acute abnormality. Discharge Plan Discharge Clinical Impression: Acute hypercapnic respiratory failure, Pneumonia due to COVID-19 virus, Elevated troponin Patient Disposition: Still a Patient Condition: Serious
[2025-11-09] MEDS: cefTRIAXone 2 GM in SODIUM CHLORIDE 0.9% IV 100 ML 200 ML IVPB (13:03)
[2025-11-09] MEDS: SODIUM CHLORIDE 0.9% IV 1,000 ML 999 ML IV CONT ×2 (13:16→13:43)
--- NOTE | 2025-11-09 13:17 | PC.NURSE ---
patient peak pressure alarm on ventilator alarming 47. respiratory called and will come to bedside
[2025-11-09] MEDS: dexAMETHasone SOD PHOS INJ 10 MG/ML 1 ML VIAL 6 MG IV PUSH (13:20)
--- NOTE | 2025-11-09 13:23 | PC.NURSE ---
spoke with Ciera from pharmacy at this time, states that administering remdesivir and fentanyl concurrently is okay.
[2025-11-09 13:41] LABS: Alveolar/Arterial O2 Gradient 177.0 mmHg; Carboxyhemoglobin 1.2 % THb (0-2.0); Fractional Inspired Oxygen 50 %; HCO3 ABG 33.9 mEq/l (22.0-26.0); Methemoglobin ABG 0.2 %THb (0-1.5); Oxygen Content ABG 17.8 %vol (16.0-22.0); Oxygen Saturation ABG 98.6 % (95.0-100.0); PCO2 ABG 49.4 mmHg (35.0-45.0); PO2 ABG 123.9 mmHg (80.0-100.0); PO2 FiO2 Ratio Arterial Blood 2.48 %; Reduced Hemoglobin 1.0 %THb (0-5.0)
[2025-11-09 13:43] LABS: Modified Allen's Test Pass; Site Drawn RIGHT RADIAL
[2025-11-09] MEDS: REMDESIVIR 200 MG/NS 250 ML 200 MG/250 ML BAG 250 MG IVPB (13:43)
[2025-11-09 13:44] LABS: Arterial Blood Gas Tidal Volume 420 ml; Arterial Blood Gas Ventilator rate 16 /MIN
--- NOTE | 2025-11-09 13:45 | WPCEDHO ---
ED Hand Off Checklist All vitals saved:YES IV Site documented:YES All med administrations documented:YES Triage Note Triage Note Pt to ED from [facility] 11/09/25 10:41 with c/o SOB. Upon EMS arrival, pt was in respiratory failure that led to respiratory arrest en route. Pt received 10mg of decadron, 2mg mag, 20mg atomadate and 5mg versed. Pt is a DNR but verbalized to EMS that she wanted to be intubated. Pt has a pmh of COVID, pneumonia, CHF and was placed on bipap by staff. Pt has a 20g in her L wrist. Pt received OG tube measured 65 at the mouth . Allergies No Known Allergies Allergy (Verified 11/09/25 10:55) Family History (Last Reviewed 10/29/25 @ 03:51 by Lolis Arguello, RN) Mother Breast cancer Lung cancer Diabetes mellitus Hypertension Hyperlipemia Amputation of leg Father Myocardial infarct Hypertension Hyperlipemia Sibling Uterine cancer Diabetes mellitus Hypertension Sibling Rh negative blood type in fetus Sibling Heart problem Hypertension Myocardial infarct Diabetes mellitus Active Medications including assessments/comments Dexamethasone Sodium Phosphate (Dexamethasone Sod Phos Inj 10 Mg/Ml 1 Ml Vial) 6 mg IV PUSH Q24H YFN Stop: 11/18/25 13:01 Last Admin: 11/09/25 13:20 Dose: 6 mg Documented By: STEW Fentanyl Citrate (Fentanyl 2,500 Mcg/Ns 250 Ml) 2,500 mcg in 250 mls @ 5 mls/hr IV CONT .Q50H STA; Protocol Stop: 11/11/25 12:44 Last Titration: 11/09/25 12:46 Dose: 50 mcg/hr, 5 mls/hr Documented By: DEWAYNE Infusion/Titration Document 11/09/25 12:46 DEWAYNE (Rec: 11/09/25 12:47 DEWAYNE [id number]) Intake Intake 6.5 Cumulative Intake ( 8.8 bag) Cumulative Intake ( 8.8 Rx) Container Volume 241.2 Waste Amount 0 Dosing Dose Rate 50 Infusion Rate 5 Cumulative Dose 88 Increase/Decrease Decreased Elapsed Time Elapsed Time ( 1h 33m minutes) Fentanyl Infusion Assessment Document 11/09/25 12:46 DEWAYNE (Rec: 11/09/25 12:47 DEWAYNE [id number]) Infusion Action Fentanyl Infusion Titrated/Rate Changed Action Pulse Pulse Rate (60-100 65 beats/min) Respirations Respiratory Rate (12 20 -20 breaths/min) Yadav Agitation/Sedation Scale (RASS) Yadav Agitation/ Light Sedation/ -2 Sedation Scale (RASS ) Titration: 11/09/25 12:07 Dose: 100 mcg/hr, 10 mls/hr Documented By: ROSI Infusion/Titration Document 11/09/25 12:07 FLORIO (Rec: 11/09/25 12:10 FLORIO [id number]) Intake IV Site Peripheral Access Left Wrist Intake 2.3 Cumulative Intake ( 2.3 bag) Cumulative Intake ( 2.3 Rx) Container Volume 247.7 Waste Amount 0 Dosing Dose Rate 100 Infusion Rate 10 Cumulative Dose 23 Increase/Decrease Increased Elapsed Time Elapsed Time ( 54m minutes) Fentanyl Infusion Assessment Document 11/09/25 12:07 ROSI (Rec: 11/09/25 12:10 ROSI [id number]) Infusion Action Fentanyl Infusion Titrated/Rate Changed Action Pulse Pulse Rate (60-100 77 beats/min) Respirations Respiratory Rate (12 16 -20 breaths/min) Yadav Agitation/Sedation Scale (RASS) Yadav Agitation/ Unarousable/ -5 Sedation Scale (RASS ) Dose Verification Dose Verified By griffin sotomayor Admin: 11/09/25 11:13 Dose: 25 mcg/hr, 2.5 mls/hr Documented By: ROSI Co-signed By: DEWAYNE Infusion/Titration Document 11/09/25 11:13 FLORIO (Rec: 11/09/25 11:15 MCO [id number]) Co-signed By Griffin Ibarra RN Intake IV Site Peripheral Access Left Wrist Container Volume 250 Waste Amount 0 Dosing Dose Rate 25 Infusion Rate 2.5 Increase/Decrease Started Elapsed Time Elapsed Time ( 0m minutes) Fentanyl Infusion Assessment Document 11/09/25 11:13 ROSI (Rec: 11/09/25 11:15 FLORIO [id number]) Co-signed By Griffin Ibarra RN Infusion Action Fentanyl Infusion Initiated Action Pulse Pulse Rate (60-100 95 beats/min) Respirations Respiratory Rate (12 18 -20 breaths/min) Yadav Agitation/Sedation Scale (RASS) Yadav Agitation/ Unarousable/ -5 Sedation Scale (RASS ) Dose Verification Dose Verified By griffin QUEZADA Pain Assessment Document 11/09/25 11:13 ROSI (Rec: 11/09/25 11:15 MCO [id number]) Co-signed By Griffin Ibarra RN Pain Evaluation Pain Evaluation Sedation Use - ICU/ED Only Re-Assess: MAR Pain/Fever Reassessment Document 11/09/25 13:13 MCO (Rec: 11/09/25 13:14 MCO [id number]) Reason for Administratin Reason for Sedation Use - ICU/ED Only Administration Remdesivir () 200 mg in 250 mls @ 250 mls/hr IVPB ONCE ONE Stop: 11/09/25 14:02 Last Admin: 11/09/25 13:43 Dose: 250 mls/hr Documented By: MCO Infusion/Titration Document 11/09/25 13:43 MCO (Rec: 11/09/25 13:43 MCO [id number]) Intake IV Site Peripheral Access Left Wrist Container Volume 250 Waste Amount 0 Dosing Infusion Rate 250 Increase/Decrease Started Elapsed Time Elapsed Time ( 0m minutes) Sodium Chloride (Normal Saline Iv) 1,000 mls @ 999 mls/hr IV CONT .Q1H1M STA Stop: 11/09/25 14:12 Last Admin: 11/09/25 13:16 Dose: 999 mls/hr Documented By: SHELLW Infusion/Titration Document 11/09/25 13:16 AJW (Rec: 11/09/25 13:16 AJW [id number]) Intake IV Site Peripheral Access Left Wrist Container Volume 1,000 Waste Amount 0 Dosing Infusion Rate 999 Cumulative Dose Not Applicable Increase/Decrease Started Elapsed Time Elapsed Time ( 0m minutes) Sodium Chloride (Normal Saline Iv) 1,000 mls @ 999 mls/hr IV CONT .Q1H1M STA Stop: 11/09/25 14:13 Last Admin: 11/09/25 13:43 Dose: 999 mls/hr Documented By: MCO Infusion/Titration Document 11/09/25 13:43 MCO (Rec: 11/09/25 13:44 MCO [id number]) Intake IV Site Peripheral Access Right Forearm Container Volume 1,000 Waste Amount 0 Dosing Infusion Rate 999 Cumulative Dose Not Applicable Increase/Decrease Started Elapsed Time Elapsed Time ( 0m minutes) Administered/Completed Medications Discontinued Medications Midazolam HCl (Versed 100 Mg/Ns 100 Ml) 100 mg in 100 mls @ 0 mls/hr IV CONT .Q0M STA; Protocol Stop: 11/09/25 10:46 Last Titration: 12/19/25 13:09 Dose: 0 mg/hr, 0 mls/hr Documented By: Titration: 11/09/25 12:47 Dose: 1 mg/hr, 1 mls/hr Documented By: Titration: 11/09/25 12:09 Dose: 2 mg/hr, 2 mls/hr Documented By: Admin: 11/09/25 11:16 Dose: 1 mg/hr, 1 mls/hr Documented By: ROSI Co-signed By: DEWAYNE Ceftriaxone Sodium 2 gm/ (Sodium Chloride) 100 mls @ 200 mls/hr IVPB ONCE STA Stop: 11/09/25 13:13 Last Infusion: 11/09/25 13:26 Dose: Infused Documented By: Admin: 11/09/25 13:03 Dose: 200 mls/hr Documented By: DEWAYNE Notes 11/09/25 13:23 Nurse Note by Gabrielle Ervin spoke with Ciera from pharmacy at this time, states that administering remdesivir and fentanyl concurrently is okay. Initialized on 11/09/25 13:23 - END OF NOTE 11/09/25 13:17 Nurse Note by Gabrielle Ervin patient peak pressure alarm on ventilator alarming 47. respiratory called and will come to bedside Initialized on 11/09/25 13:17 - END OF NOTE 11/09/25 12:25 Nurse Note by Peter Bullard Spoke to pt sister at this time regarding pt condition. All questions answered. Initialized on 11/09/25 12:25 - END OF NOTE 11/09/25 12:20 Respiratory Therapy Note by Eve Mayberry ABG ordered when patient initially came in. pt was put on vent and ABGs done after an hour Initialized on 11/09/25 12:20 - END OF NOTE 11/09/25 12:20 Nurse Note by Peter Bullard Unable to obtain temperature upon arrival to ED. Initialized on 11/09/25 12:20 - END OF NOTE Interventions/Assessments Cardiac Monitoring Start: 11/09/25 10:50 Freq: Status: Active Protocol: Document 11/09/25 12:00 [facility] [place]Rec: 11/09/25 12:00 O [id number]) Bladder Changer Assessment Bladder Changer Yes Applied Pulse Rate (60-100 80 beats/min) EKG Rythm Sinus Rhythm IV / Saline Lock, Insert Start: 11/09/25 10:52 Freq: STAT Status: Active Protocol: Document 11/09/25 13:43 MCO (Rec: 11/09/25 13:44 MCO [id number]) IV Assessment Peripheral Access Right Forearm IV Catheter Access Initiated IV Insertion Date 11/09/25 IV Insertion Time 12:00 Catheter Gauge 20 Ultrasound Used for Yes Placement IV Site Assessment WNL IV Care and WNL Maintenance Peripheral Access Left Wrist IV Insertion Date 11/09/25 IV Insertion Time 12:00 PA: Cardiovascular Assessment Start: 11/09/25 10:50 Freq: Status: Active Protocol: Document 11/09/25 10:54 MCO (Rec: 11/09/25 10:55 MCO [id number]) Cardiovascular Assessment Cardiovascular Dyspnea Symptoms Skin Description Flushed Heart Sounds Normal Jugular Vein None Distention PA: Respiratory Assessment Start: 11/09/25 10:50 Freq: Status: Active Protocol: Document 11/09/25 10:54 MCO (Rec: 11/09/25 10:55 MCO [id number]) Respiratory Assessment Symptoms Shortness of Breath at Rest,Shortness of Breath With Exertion Effort Mechanically Ventilated Depth Normal Cough Description None Oxygen Delivery Oxygen Delivery Mechanical Ventilation Last Vital Signs Temperature 98.9 F 11/09/25 12:19 Pulse Rate 64 11/09/25 13:31 Respiratory Rate 16 11/09/25 13:31 Pulse Oximetry 98 11/09/25 13:31 Blood Pressure 101/57 L 11/09/25 13:31 Blood Pressure Mean 71 11/09/25 13:31 Blood Pressure Position Supine 11/09/25 12:19 Oxygen Delivery Mechanical Ventilation 11/09/25 12:21 Fraction of Inspired Oxygen 50 11/09/25 12:21 Weight 145.9 kg 11/09/25 10:41 Last Result - Abnormals Only WBC 12.8 K/mm3 (4.5-10.0) H 11/09/25 10:56 Hct 47.2 % (37.0-47.0) H 11/09/25 10:56 MCV 101.9 fl (80-100) H 11/09/25 10:56 MCHC 28.4 g/dl (32-36) L 11/09/25 10:56 Immature Gran % (Auto) 3.3 % (0-0.5) H 11/09/25 10:56 Neut % (Auto) 85.0 % (45.5-73.1) H 11/09/25 10:56 Lymph % (Auto) 2.8 % (18.3-44.2) L 11/09/25 10:56 Lymph # (Auto) 0.36 K/mm3 (0.9-3.2) L 11/09/25 10:56 Bledsoe # (Auto) 0.9 K/mm3 (0.1-0.6) H 11/09/25 10:56 Abs Immat Gran (auto) 0.42 K/mm3 (0.00-0.031) H 11/09/25 10:56 Absolute Neuts (auto) 10.9 K/mm3 (1.3-6.7) H 11/09/25 10:56 Absolute Nucleated RBC 0.020 K/mm3 (0.0-0.012) H 11/09/25 10:56 ABG pH 7.454 (7.350-7.450) H 11/09/25 13:28 ABG pCO2 49.4 mmHg (35.0-45.0) H 11/09/25 13:28 ABG pO2 123.9 mmHg (80.0-100.0) H 11/09/25 13:28 ABG HCO3 33.9 mEq/l (22.0-26.0) H 11/09/25 13:28 Chloride 94 mmol/L (98-107) L 11/09/25 10:56 Carbon Dioxide > 40 mmol/L (22-30) H 11/09/25 10:56 BUN 22 mg/dL (7-17) H D 11/09/25 10:56 Creatinine 1.18 mg/dL (0.7-1.0) H 11/09/25 10:56 Estimated GFR 45 (59-) L 11/09/25 10:56 Glucose 154 mg/dL (65-110) H 11/09/25 10:56 Troponin I 0.080 ng/mL (0.000-0.034) H* 11/09/25 10:56 C-Reactive Protein 24.5 mg/dL (<1.0) H 11/09/25 10:56 NT-Pro-B Natriuret Pep 1890 pg/mL (19.9-100) H 11/09/25 10:56
--- NOTE | 2025-11-09 13:56 | P.HP_ITS ---
H&P: HPI History of Present Illness Date/Time: 11/09/25 13:56 Chief Complaint: Shortness of breath Narrative: 69-year-old female past medical history of CHF, hypothyroidism, hypertension presents the hospital with shortness of breath. Positive facility and EMS was called due to shortness of breath and hypoxia. Whenever EMS arrived they asked if she would like to be intubated in due to shortness of breath she agreed. HPI is limited as patient is intubated, family no longer at bedside. Per ED physician patient was positive for COVID a fpc. Patient presented to the hospital with hypotension 82/42. Lab work in the ED shows leukocytosis at 12.8, ABG on presentation was 7.34, pCO2 of 81.9, PO2 of 314, bicarb of 43.7, carbon dioxide over 40, BUN 22, creatinine 1.18, GFR 45, glucose 154, troponin of 0.080 CRP of 24.5, BNP of 1890. Review of Systems Review of Systems: ROS unobtainable: Yes unobtainable due to endotracheal tube PMFSH Past Medical History Medical History (Updated 11/09/25 @ 14:42 by Handy Phillips MD) Congestive heart failure Chronic respiratory failure Asthma Cardiomyopathy Echo 10/28/2024ummary 1. Complete two-dimensional, color flow and Doppler transthoracic echocardiogram is performed. 2. Left ventricle is normal size and systolic function. There is concentric left ventricular remodeling. The left ventricular ejection fraction is visually estimated to be 60-65%. 3. The right ventricle is normal in size and systolic function. 4. There is no significant valvular disease Obesity Iron deficiency anemia Hypothyroidism Gout Hypertension Surgical History Surgical History (Updated 09/22/25 @ 07:03 by Eve Freitas APRN) History of colon resection Family History Family History Mother Breast cancer Lung cancer Diabetes mellitus Hypertension Hyperlipemia Amputation of leg Father Myocardial infarct Hypertension Hyperlipemia Sibling Uterine cancer Diabetes mellitus Hypertension Sibling Rh negative blood type in fetus Sibling Heart problem Hypertension Myocardial infarct Diabetes mellitus Social History Social History (Updated 09/22/25 @ 07:06 by Eve Freitas APRN) Social History: She lives with her sister and is single. She has never been or had any children. Code status: Full code Smoking status: Never smoker Second hand tobacco smoke exposure: Yes Alcohol intake: never Substance use: never Substance use type: does not use Lack of Transportation: No Lack of Food: Never True Current Housing: I Have Housing Concerned About Future Housing: No Difficulty Paying Gas/Electric Bills: No Difficulty Paying for Meds: No Currently Unemployed: No Education: High School Diploma/GED Difficulty w/ Childcare or Family Care: No Spiritual care concerns: No Meds Home Medications and Allergies Home Medications ?Medication ?Instructions ?Recorded ?Confirmed ?Type allopurinol 100 mg tablet 100 mg PO DAILY 10/27/24 History atorvastatin 20 mg tablet 20 mg PO DAILY 10/27/2410/22 History ferrous sulfate 325 mg (65 mg 325 mg PO DAILY 10/27/24 11/09/25 History iron) tablet furosemide 40 mg tablet 40 mg PO DAILY 10/27/2410/22 History gabapentin 300 mg capsule 300 mg PO TID 10/27/2411/09 History levothyroxine 137 mcg tablet 137 mcg PO DAILY 10/27/24 11/09/25 History montelukast 10 mg tablet 10 mg PO HS 10/27/24 5 History sennosides 8.6 mg-docusate sodium 1 tablet PO HS #30 t abs 09/26/25 11/09/25 Rx 50 mg tablet (Senokot-S) acetaminophen 500 mg tablet 1,000 mg PO Q6H PRN fever or pain 10/29/25 11/09/25 History (Tylenol Extra Strength) cholecalciferol (vitamin D3) 1,250 1,250 mcg PO WEEKLY 10/29/25 11/09/25 History mcg (50,000 unit) capsule miconazole nitrate 2 % topical 1 applic topical BID 11/09/25 History cream urea 20 % topical cream 1 applic topical DAILY 10/2911/09/25 History Allergies Allergy/AdvReac Type Severity Reaction Status Date / Time No Known Allergies Allergy Verified 11/09/25 15:10 Vital Signs Vital Signs - 24 hr 11/09/25 10:41 11/09/25 10:54 11/09/25 11:13 Temperature Pulse Rate 110 H 95 Respiratory Rate 16 18 Blood Pressure 105/59 L Pulse Oximetry 100 Oxygen Delivery Room Air Mechanical Ventilation Fraction of Inspired Oxygen 11/09/25 11:16 11/09/25 11:18 11/09/25 11:19 Temperature Pulse Rate 94 92 Respiratory Rate 17 14 Blood Pressure 121/85 Pulse Oximetry 100 100 Oxygen Delivery Mechanical Ventilation Fraction of Inspired Oxygen 11/09/25 11:26 11/09/25 11:30 11/09/25 11:33 Temperature Pulse Rate 87 86 95 Respiratory Rate 17 16 Blood Pressure Pulse Oximetry 100 100 97 Oxygen Delivery Mechanical Ventilation Fraction of Inspired Oxygen 100 11/09/25 11:45 11/09/25 11:50 11/09/25 11:51 Temperature Pulse Rate 96 83 83 Respiratory Rate 19 24 H 16 Blood Pressure 106/67 Pulse Oximetry 95 100 100 Oxygen Delivery Fraction of Inspired Oxygen 11/09/25 12:00 11/09/25 12:00 11/09/25 12:01 Temperature Pulse Rate 80 80 82 Respiratory Rate 17 18 Blood Pressure 100/41 L Pulse Oximetry 100 100 Oxygen Delivery Fraction of Inspired Oxygen 11/09/25 12:07 11/09/25 12:09 11/09/25 12:15 Temperature Pulse Rate 77 76 73 Respiratory Rate 16 16 18 Blood Pressure Pulse Oximetry 100 Oxygen Delivery Fraction of Inspired Oxygen 11/09/25 12:16 11/09/25 12:19 11/09/25 12:21 Temperature 98.9 F Pulse Rate 70 72 Respiratory Rate 16 14 Blood Pressure 100/69 100/69 Pulse Oximetry 100 98 Oxygen Delivery Mechanical Ventilation Fraction of Inspired Oxygen 50 11/09/25 12:30 11/09/25 12:31 11/09/25 12:35 Temperature Pulse Rate 67 67 65 Respiratory Rate 17 20 16 Blood Pressure 97/44 L 93/47 L Pulse Oximetry 98 100 99 Oxygen Delivery Fraction of Inspired Oxygen 11/09/25 12:45 11/09/25 12:46 11/09/25 12:46 Temperature Pulse Rate 65 65 65 Respiratory Rate 17 20 19 Blood Pressure 97/46 L Pulse Oximetry 98 98 Oxygen Delivery Fraction of Inspired Oxygen 11/09/25 12:47 11/09/25 13:00 11/09/25 13:01 Temperature Pulse Rate 66 64 65 Respiratory Rate 20 19 17 Blood Pressure 82/42 L Pulse Oximetry 99 99 Oxygen Delivery Fraction of Inspired Oxygen 11/09/25 13:02 11/09/25 13:09 11/09/25 13:09 Temperature Pulse Rate 64 64 65 Respiratory Rate 18 18 18 Blood Pressure 86/47 L Pulse Oximetry 99 99 Oxygen Delivery Fraction of Inspired Oxygen 11/09/25 13:15 11/09/25 13:16 11/09/25 13:17 Temperature Pulse Rate 64 64 63 Respiratory Rate 17 17 17 Blood Pressure 85/50 L Pulse Oximetry 99 99 99 Oxygen Delivery Fraction of Inspired Oxygen 11/09/25 13:30 11/09/25 13:31 11/09/25 13:31 Temperature Pulse Rate 63 64 64 Respiratory Rate 16 16 16 Blood Pressure 101/57 L 101/57 L Pulse Oximetry 97 98 98 Oxygen Delivery Fraction of Inspired Oxygen Exam Narrative: General: Intubated sedated HEENT: normocephalic, atraumatic. Mucous membranes moist. EOMI, PERRLA, bilateral sclera anicteric, no conjunctival injection. Neck supple without JVD, lymphadenopathy, or bruit. Respiratory: Course synchronized with that Cardiovascular: Regular rate and rhythm, normal S1-S2. No murmurs, rubs, or clicks. PMI is nondisplaced, capillary refill less than 3 second. Abdomen: Obese Soft, round, no pulsatile masses, nondistended and nontender. No rebound, no guarding. Bowel sounds present to all four quadrants. No high pitch or tinkling sounds, resonant to percussion. Extremities: No cyanosis, clubbing, or edema present. Pulses are palpable 2/2. Neuro: Intubated sedated withdrawals to pain Skin: Lower extremities dry, buttocks dark purple Psych: Unable to assess Results Labs Labs: Short CBC 11/09/25 Range/Units 10:56 WBC 12.8 H (4.5-10.0) K/mm3 Hgb 13.4 (12.0-15.0) g/dL Hct 47.2 H (37.0-47.0) % Plt Count 198 (150-375) k/mm3 BMP 11/09/25 10:56 Sodium 141 Potassium 5.0 Chloride 94 L Carbon Dioxide > 40 H BUN 22 H D Creatinine 1.18 H Glucose 154 H Calcium 8.6 Cardiac Enzymes 11/09/25 Range/Units 10:56 Troponin I 0.080 H* (0.000-0.034) ng/mL Liver Function 12/19/25 Range/Units 10:56 Total Bilirubin 0.4 (0.2-1.3) mg/dL AST 27 (14-36) U/L ALT 20 (6-35) U/L Alkaline Phosphatase 106 (38-126) U/L Albumin 3.6 (3.5-5.1) g/dL Attestation: I personally reviewed all lab results Imaging Chest x-ray: Attestation: I personally reviewed this imaging study Radiologist's impression: Perihilar changes may represent vascular congestion and bilateral perihilar edema; parahilar pneumonia could have a similar appearance. Endotracheal tube and possible gastric catheter in the midesophagus. Abdominal x-ray: Attestation: I personally reviewed this imaging study Radiologist's impression: Nasogastric tube terminates in the body of the stomach Quality VTE Prophylaxis VTE prophylaxis: pharmacologic ordered Assessment and Plan Assessment and plan (1) COVID: Code(s): U07.1 - COVID-19 Status: Acute Assessment and Plan: Positive test reported at facility Started on remdesivir, vancomycin, azithromycin and Rocephin IV dexamthasone Blood cultures pending (2) Acute respiratory failure: Code(s): J96.00 - Acute respiratory failure, unspecified whether with hypoxia or hypercapnia Status: Acute Assessment and Plan: Patient being admitted to ICU due to acute respiratory failure intubated by EMS Daily ABG and chest x-ray Wean ventilator as able DuoNeb (3) Congestive heart failure: Code(s): I50.9 - Heart failure, unspecified Status: Acute Assessment and Plan: Last echo on 10/29/2025 EF 60-65% Holding home Lasix Giving IV fluids due to dehydration monitor for fluid overload (4) Hypertension: Code(s): I10 - Essential (primary) hypertension Status: Acute Assessment and Plan: Hold anti hypertensives as patient's blood pressure is currently soft Patient receiving IV fluids PICC line case patient needs pressors (5) Troponin I above reference range: Code(s): R79.89 - Other specified abnormal findings of blood chemistry Status: Acute Assessment and Plan: Hypoxia versus ACS Trend troponins EKGs Telemetry (6) Hypothyroidism: Code(s): E03.9 - Hypothyroidism, unspecified Status: Acute Assessment and Plan: Continue Synthroid Prior Studies I have reviewed the following patient records and this information was taken into consideration when formulating the assessment and plan.: previous labs and previous hospitalizations Time Spent with Patient Time with patient: less than 45 minutes Hospitalist MIPS Advance Care Plan I have confirmed that the patient's Advanced Care Plan is present, code status is documented, or surrogate decision maker is listed in patient medical record.: Yes Medication Reconciliation I have utilized all available resources to obtain, update and review the patients current medications (includes all prescriptions, OTC, herbals, cannabis, and nutritional supplements).: Yes
--- NOTE | 2025-11-09 14:23 | WPDCNINT2 ---
Assessment and Plan Assessment and plan (1) Acute hypercapnic respiratory failure: Code(s): J96.02 - Acute respiratory failure with hypercapnia Status: Acute Assessment and Plan: Patient presented with shortness of breath, hypoxia, was a DNR/DNI, EMS asked the patient if she would want to be intubated, patient was in respiratory distress and patient said yes. ABG showed hypercapnic respiratory failure -11/09: Patient intubated in the ER -post intubation ABGs : 7.34/81/314/43/99%. Repeat ABGs, show improvement in hypercapnia --> pH 7.45, pCO2 49, PO2 123, HC03 33.9, O2 sats 98.6% on 50% FiO2 and peep of 5 -could be related to community-acquired pneumonia, COVID pneumonia, CHF -11/09: patient started on add azithromycin, ceftriaxone and vancomycin -will obtain sputum culture -added bronchodilators -will add Mucomyst and Mucomyst with 2 doses (2) Sepsis: Code(s): A41.9 - Sepsis, unspecified organism Status: Acute Assessment and Plan: Patient presented with acute shortness of breath, hypoxic/hypercapnic, intubated -chest x-ray shows likely pneumonia or congestive heart failure -11/09: blood cultures have been ordered -continue antibiotics as above -lactic acid was 1.7 -patient dropped her pressures with Versed, which was held -currently holding a pressures, maintain MAP > 65 mmHg for adequate end organ perfusion (3) Pneumonia: Code(s): J18.9 - Pneumonia, unspecified organism Status: Acute Assessment and Plan: Continue antibiotics (4) COVID: Code(s): U07.1 - COVID-19 Status: Acute Assessment and Plan: Patient apparently is tested positive for COVID -will start dexamethasone remdesivir -CRP 24.5, will start baricitinib -airborne and contact precautions -continue isolation (5) COPD (chronic obstructive pulmonary disease): Code(s): J44.9 - Chronic obstructive pulmonary disease, unspecified Status: Acute Assessment and Plan: History of COPD/asthma, now with hypercapnic respiratory failure -continue mechanical ventilation, -repeat ABG showed improvement in her CO2 -continue steroids, antibiotics (6) Congestive heart failure: Code(s): I50.9 - Heart failure, unspecified Status: Acute Assessment and Plan: History of congestive heart failure Continue to monitor for now 10/29/2025 echocardiogram: Summary 1. Technically difficult study with limited views. 2. The cardiac valves are not fully visualized in this study. 3. Overall, appears to have normal biventricular size and systolic function. (7) Hypertension: Code(s): I10 - Essential (primary) hypertension Status: Acute Assessment and Plan: Hold all antihypertensives (8) Troponin I above reference range: Code(s): R79.89 - Other specified abnormal findings of blood chemistry Status: Acute Assessment and Plan: Elevated troponins could be related to respiratory distress, type 2 infarct -repeat troponins pending (9) Hypothyroidism: Code(s): E03.9 - Hypothyroidism, unspecified Status: Acute Assessment and Plan: Continue levothyroxine Plan DVT prophylaxis: Lovenox Stress ulcer prophylaxis: Protonix Nutrition: NPO, will start tube feeds in a.m. Code Status: ER physician discussed with sister is the power of assistant county attorney, she made the patient do not resuscitate Critical Care Time Spent: 48 minutes Due to a high probability of clinically significant, life threatening deterioration, the patient required my highest level of preparedness to intervene emergently and I personally spent this critical care time directly and personally managing the patient. This critical care time included obtaining a history; examining the patient; pulse oximetry; ordering and review of studies; arranging urgent treatment with development of a management plan; evaluation of patient's response to treatment; frequent reassessment; and discussions with other providers. It was exclusive of separately billable procedures and treating other patients and teaching time. Please see Assessment and Plan section and the rest of the note for further information on patient assessment and treatment This dictation may have been done utilizing a voice recognition system. Attempts have been made to correct errors. However, there may be uncorrected grammatical, spelling, and recognitions errors present. Desk Pens Assembler Consult Note Consult date: 11/09/25 Reason for consult: Acute hypercapnic respiratory failure, shortness of breath, pneumonia, COVID positive, HPI: June Petty is a 69 year old female with significant past medical history of CHF, hypothyroidism, essential hypertension, asthma, hypothyroidism, obesity, gout, iron deficiency anemia presented the ED on 11/09/2025 from [facility] with complains of shortness of breath and hypoxia. Patient was a DNR/DNI, EMS put her on a BiPAP, and ask her if she would like to be intubated, due to the shortness of breath and respiratory distress she agreed to be intubated. ED physician contacted her POA and she was also in agreement to intubation, okay was central line but no CPR. Patient was intubated in the ED, placed on mechanical ventilation, started on Versed and fentanyl infusion. Patient dropped her pressures with Versed, which was discontinued, 2 L IV fluid bolus is being infused, currently on fentanyl infusion. WBC count 12.8, hemoglobin 13.4, platelets 198. Sodium 141, potassium 5.0, chloride 94, CO2>40, BUN 22, creatinine 1.18. Blood sugars 154, lactic acid 1.57, LFTs are within normal limits, troponin 0.080, C-reactive protein 24.5, proBNP 1890. ABGs immediately after intubation: 7.34/81/314/43/99%. Repeat ABGs, pH 7.45, pCO2 49, PO2 123, HC03 33.9, O2 sats 98.6% on 50% FiO2 and peep of 5 Patient was stated to be COVID positive but then no results in the chart Patient was started on ceftriaxone, azithromycin and vancomycin. Patient was also started on remdesivir and dexamethasone. Patient be transferred to the ICU for further management Patient seen and examined the ER, remains intubated on CMV mode of ventilation, peep of 5, 50% FiO2. Sedated with fentanyl infusion, patient tries to open her eyes but does not follow commands. C currently hemodynamically stable, adequate urine output, afebrile. Review of Systems Review of Systems: ROS unobtainable: Yes unobtainable due to endotracheal tube, unobtainable due to medical condition and unobtainable due to mental status PMFSH Past Medical History Medical History (Updated 11/09/25 @ 14:42 by Handy Phillips MD) Congestive heart failure Chronic respiratory failure Asthma Cardiomyopathy Echo 10/28/2024ummary 1. Complete two-dimensional, color flow and Doppler transthoracic echocardiogram is performed. 2. Left ventricle is normal size and systolic function. There is concentric left ventricular remodeling. The left ventricular ejection fraction is visually estimated to be 60-65%. 3. The right ventricle is normal in size and systolic function. 4. There is no significant valvular disease Obesity Iron deficiency anemia Hypothyroidism Gout Hypertension Surgical History Surgical History (Updated 09/22/25 @ 07:03 by Eve Freitas APRN) History of colon resection Family History Family History Mother Breast cancer Lung cancer Diabetes mellitus Hypertension Hyperlipemia Amputation of leg Father Myocardial infarct Hypertension Hyperlipemia Sibling Uterine cancer Diabetes mellitus Hypertension Sibling Rh negative blood type in fetus Sibling Heart problem Hypertension Myocardial infarct Diabetes mellitus Social History Social History (Updated 09/22/25 @ 07:06 by Eve Freitas APRN) Social History: She lives with her sister and is single. She has never been or had any children. Code status: Full code Smoking status: Never smoker Second hand tobacco smoke exposure: Yes Alcohol intake: never Substance use: never Substance use type: does not use Lack of Transportation: No Lack of Food: Never True Current Housing: I Have Housing Concerned About Future Housing: No Difficulty Paying Gas/Electric Bills: No Difficulty Paying for Meds: No Currently Unemployed: No Education: High School Diploma/GED Difficulty w/ Childcare or Family Care: No Spiritual care concerns: No Meds Home Medications and Allergies Home Medications ?Medication ?Instructions ?Recorded ?Confirmed ?Type allopurinol 100 mg tablet 100 mg PO DAILY 10/27/24 10/29/25 History atorvastatin 20 mg tablet 20 mg PO DAILY 10/27/24 10/29/25 History ferrous sulfate 325 mg (65 mg 325 mg PO DAILY 10/27/24 10/29/25 History iron) tablet furosemide 40 mg tablet 40 mg PO DAILY 10/27/24 10/29/25 History gabapentin 300 mg capsule 300 mg PO TID 10/27/24 10/29/25 History levothyroxine 137 mcg tablet 137 mcg PO DAILY 10/27/24 10/29/25 History montelukast 10 mg tablet 10 mg PO HS 10/27/24 10/29/25 History sennosides 8.6 mg-docusate sodium 1 tablet PO HS #30 tabs 09/26/25 10/29/25 Rx 50 mg tablet (Senokot-S) acetaminophen 500 mg tablet 1,000 mg PO Q6H PRN fever or pain 10/29/25 10/29/25 History (Tylenol Extra Strength) cholecalciferol (vitamin D3) 1,250 1,250 mcg PO WEEKLY 10/29/25 10/29/25 History mcg (50,000 unit) capsule miconazole nitrate 2 % topical 1 applic topical BID 10/29/25 10/29/25 History cream urea 20 % topical cream 1 applic topical DAILY 10/29/25 10/29/25 History Allergies Allergy/AdvReac Type Severity Reaction Status Date / Time No Known Allergies Allergy Verified 11/09/25 13:52 Vital Signs Vital Signs - 24 hr 11/09/25 10:41 11/09/25 10:54 11/09/25 11:13 Temperature Pulse Rate 110 H 95 Respiratory Rate 16 18 Blood Pressure 105/59 L Pulse Oximetry 100 Oxygen Delivery Room Air Mechanical Ventilation Fraction of Inspired Oxygen 11/09/25 11:16 11/09/25 11:18 11/09/25 11:19 Temperature Pulse Rate 94 92 Respiratory Rate 17 14 Blood Pressure 121/85 Pulse Oximetry 100 100 Oxygen Delivery Mechanical Ventilation Fraction of Inspired Oxygen 11/09/25 11:26 11/09/25 11:30 11/09/25 11:33 Temperature Pulse Rate 87 86 95 Respiratory Rate 17 16 Blood Pressure Pulse Oximetry 100 100 97 Oxygen Delivery Mechanical Ventilation Fraction of Inspired Oxygen 100 11/09/25 11:45 11/09/25 11:50 11/09/25 11:51 Temperature Pulse Rate 96 83 83 Respiratory Rate 19 24 H 16 Blood Pressure 106/67 Pulse Oximetry 95 100 100 Oxygen Delivery Fraction of Inspired Oxygen 11/09/25 12:00 11/09/25 12:00 11/09/25 12:01 Temperature Pulse Rate 80 80 82 Respiratory Rate 17 18 Blood Pressure 100/41 L Pulse Oximetry 100 100 Oxygen Delivery Fraction of Inspired Oxygen 11/09/25 12:07 11/09/25 12:09 11/09/25 12:15 Temperature Pulse Rate 77 76 73 Respiratory Rate 16 16 18 Blood Pressure Pulse Oximetry 100 Oxygen Delivery Fraction of Inspired Oxygen 11/09/25 12:16 11/09/25 12:19 11/09/25 12:21 Temperature 98.9 F Pulse Rate 70 72 Respiratory Rate 16 14 Blood Pressure 100/69 100/69 Pulse Oximetry 100 98 Oxygen Delivery Mechanical Ventilation Fraction of Inspired Oxygen 50 11/09/25 12:30 11/09/25 12:31 11/09/25 12:35 Temperature Pulse Rate 67 67 65 Respiratory Rate 17 20 16 Blood Pressure 97/44 L 93/47 L Pulse Oximetry 98 100 99 Oxygen Delivery Fraction of Inspired Oxygen 11/09/25 12:45 11/09/25 12:46 11/09/25 12:46 Temperature Pulse Rate 65 65 65 Respiratory Rate 17 20 19 Blood Pressure 97/46 L Pulse Oximetry 98 98 Oxygen Delivery Fraction of Inspired Oxygen 11/09/25 12:47 11/09/25 13:00 11/09/25 13:01 Temperature Pulse Rate 66 64 65 Respiratory Rate 20 19 17 Blood Pressure 82/42 L Pulse Oximetry 99 99 Oxygen Delivery Fraction of Inspired Oxygen 11/09/25 13:02 11/09/25 13:09 11/09/25 13:09 Temperature Pulse Rate 64 64 65 Respiratory Rate 18 18 18 Blood Pressure 86/47 L Pulse Oximetry 99 99 Oxygen Delivery Fraction of Inspired Oxygen 11/09/25 13:15 11/09/25 13:16 11/09/25 13:17 Temperature Pulse Rate 64 64 63 Respiratory Rate 17 17 17 Blood Pressure 85/50 L Pulse Oximetry 99 99 99 Oxygen Delivery Fraction of Inspired Oxygen 11/09/25 13:30 11/09/25 13:31 11/09/25 13:31 Temperature Pulse Rate 63 64 64 Respiratory Rate 16 16 16 Blood Pressure 101/57 L 101/57 L Pulse Oximetry 97 98 98 Oxygen Delivery Fraction of Inspired Oxygen Exam Narrative: General: Obese female intubated, sedated in no distress HEENT:? Pupils equal and reactive, sclera is clear, ETT in place Neck:? Short and thick neck Respiratory:? Coarse breath sounds bilaterally, decreased at bases, no wheezing, adequate air entry at this time Cardiac:? S1-S2 is normal, regular rate and rhythm Abdomen:? Soft, nontender, nondistended, morbidly obese, hypoactive bowel sounds Extremities:? Chronic venous stasis changes with Mora appearance, weak pedal pulses bilaterally Neuro:? Patient is intubated, sedated with fentanyl, tries to open her eyes but does not follow simple commands Skin:? Skin is dry and flaky on lower extremities Psych:? Unable to assess at this time Results Labs 11/09/25 10:56 11/09/25 10:56 Labs: Short CBC 11/09/25 Range/Units 10:56 WBC 12.8 H (4.5-10.0) K/mm3 Hgb 13.4 (12.0-15.0) g/dL Hct 47.2 H (37.0-47.0) % Plt Count 198 (150-375) k/mm3 BMP 11/09/25 10:56 Sodium 141 Potassium 5.0 Chloride 94 L Carbon Dioxide > 40 H BUN 22 H D Creatinine 1.18 H Glucose 154 H Calcium 8.6 Cardiac Enzymes 11/09/25 Range/Units 10:56 Troponin I 0.080 H* (0.000-0.034) ng/mL Liver Function 11/09/25 Range/Units 10:56 Total Bilirubin 0.4 (0.2-1.3) mg/dL AST 27 (14-36) U/L ALT 20 (6-35) U/L Alkaline Phosphatase 106 (38-126) U/L Albumin 3.6 (3.5-5.1) g/dL Quality VTE Prophylaxis VTE prophylaxis: pharmacologic ordered Hospitalist MIPS Advance Care Plan I have confirmed that the patient's Advanced Care Plan is present, code status is documented, or surrogate decision maker is listed in patient medical record.: Yes Medication Reconciliation I have utilized all available resources to obtain, update and review the patients current medications (includes all prescriptions, OTC, herbals, cannabis, and nutritional supplements).: Yes
[2025-11-09 14:43] LABS: MRSA (PCR) DETECTED (NOT DETECTE)
[2025-11-09] MEDS: IPRATROPIUM 0.5 MG/ALBUTEROL SULFATE 2.5 MG (BASE) AMPUL.NEB 3 ML INHALATION ×2 (14:50→20:14)
[2025-11-09] MEDS: ACETYLCYSTEINE 20% INHAL SOLN 800 MG/4 ML VIAL 200 MG INHALATION ×2 (15:07→20:14)
[2025-11-09 15:39] LABS: Troponin I 0.130 ng/mL (0.000-0.034)
[2025-11-09] MEDS: SODIUM CHLORIDE 0.9% IV 1,000 ML 125 ML IV CONT (15:54)
[2025-11-09] MEDS: ALBUMIN HUMAN 25% 25 GM/100 ML 100 ML IVPB ×2 (15:55→18:26)
[2025-11-09] MEDS: AZITHROMYCIN IV 500 MG in SODIUM CHLORIDE 0.9% IV 250 ML IVPB (15:55)
[2025-11-09] MEDS: ENOXAPARIN 40 MG/0.4 ML SYRINGE SUB-Q (15:59)
[2025-11-09] MEDS: VANCOMYCIN 1,250 MG/NS 250 ML 1,250 MG/250 ML BAG 166.67 MG IVPB ×2 (16:00)
--- NOTE | 2025-11-09 16:45 | ADMGEN ---
This patient, June Petty, was admitted to Intensive Care Unit-3. Patient/family oriented to hospital policies and general routines including ID bracelet, bed and alarms, visiting hours, pain management, procedures, bathroom and other care routines, personal items, smoking policy, room service/diet, and visiting hours. Information on how to activate the Rapid Response Team has been discussed. Patient/Family are encouraged to report perceived risks to care and to ask questions if they do not understand what they are told or what they should do.
[2025-11-09 16:59] LABS: Influenza A QL RT-PCR Negative (Negative); Influenza B QL RT-PCR Negative (Negative); RSV RNA, RT-PCR Negative (Negative); SARS-CoV-2 RNA PCR Positive (Negative)
[2025-11-09] MEDS: DORNASE ALFA INH SOLN 1 MG/ML 2.5 ML AMP 2.5 MG INHALATION (20:13)
[2025-11-09 20:48] LABS: Troponin I 0.094 ng/mL (0.000-0.034)
[2025-11-09] MEDS: MINERAL OIL/WHITE PETROLATUM OINTMENT 1 APPLIC EACH EYE (21:42)
[2025-11-10] VITALS (38 sets, daily range): BP systolic 96–175; BP diastolic 44–76; PULSE 53–97; RESP 16–21; TEMP 36.6–37.6; O2SAT 92–99
[2025-11-10] MEDS: ALBUMIN HUMAN 25% 25 GM/100 ML 100 ML IVPB ×2 (00:23→05:20)
[2025-11-10] MEDS: SODIUM CHLORIDE 0.9% IV 1,000 ML 125 ML IV CONT ×3 (00:31→16:15)
[2025-11-10] MEDS: IPRATROPIUM 0.5 MG/ALBUTEROL SULFATE 2.5 MG (BASE) AMPUL.NEB 3 ML INHALATION ×3 (02:33→14:07)
[2025-11-10] MEDS: ACETYLCYSTEINE 20% INHAL SOLN 800 MG/4 ML VIAL 200 MG INHALATION ×3 (02:33→14:07)
[2025-11-10 04:07] LABS: Hematocrit 35.9 % (37.0-47.0); Hemoglobin 10.5 g/dL (12.0-15.0); Mean Corpuscular HGB Conc 29.2 g/dl (32-36); Mean Corpuscular Hemoglobin 28.3 pg (26-34); Mean Corpuscular Volume 96.8 fl (80-100); Platelet Count Result 146 k/mm3 (150-375); Red Blood Count 3.71 M/mm3 (4.2-5.4); White Blood Count 13.4 K/mm3 (4.5-10.0)
[2025-11-10 04:19] LABS: INR 1.1; Prothrombin Time 14.4 Seconds (11.1-14.7)
[2025-11-10 04:20] LABS: Partial Thromboplastin Time 34.5 Seconds (22.3-36.8)
[2025-11-10 04:32] LABS: Alanine Aminotransferase 16 U/L (6-35); Albumin Level 3.2 g/dL (3.5-5.1); Alkaline Phosphatase 77 U/L (38-126); Anion Gap 5 mmol/L (4-12); Aspartate Amino Transferase 20 U/L (14-36); Bilirubin,Total 0.4 mg/dL (0.2-1.3); Blood Urea Nitrogen 25 mg/dL (7-17); Calcium 8.4 mg/dL (8.4-10.2); Carbon Dioxide 34 mmol/L (22-30); Chloride 101 mmol/L (98-107); Estimated CRCL calculation 64 ml/min; Estimated Glomerular Filt Rate 51; Glucose 151 mg/dL (65-110); Magnesium 1.8 mg/dL (1.6-2.3); Potassium 4.7 mmol/L (3.4-5.0); Sodium 140 mmol/L (137-145); Total Protein 5.5 g/dL (6.3-8.2)
[2025-11-10 04:42] LABS: CRP 26.2 mg/dL (<1.0)
[2025-11-10 04:58] LABS: Thyroid Stimulating Hormone 0.665 uIU/mL (0.465-4.680)
[2025-11-10] MEDS: LEVOTHYROXINE SODIUM 25 MCG TABLET PO (05:20)
[2025-11-10] MEDS: LEVOTHYROXINE SODIUM 112 MCG TABLET PO (05:20)
[2025-11-10 05:24] LABS: Alveolar/Arterial O2 Gradient 156.2 mmHg; Carboxyhemoglobin 0.2 % THb (0-2.0); Fractional Inspired Oxygen 45 %; HCO3 ABG 33.8 mEq/l (22.0-26.0); Methemoglobin ABG 0.1 %THb (0-1.5); Oxygen Content ABG 15.8 %vol (16.0-22.0); Oxygen Saturation ABG 97.6 % (95.0-100.0); PCO2 ABG 54.7 mmHg (35.0-45.0); PO2 ABG 102.4 mmHg (80.0-100.0); PO2 FiO2 Ratio Arterial Blood 2.28 %; Reduced Hemoglobin 2.2 %THb (0-5.0)
[2025-11-10 06:32] LABS: Modified Allen's Test Pass; Site Drawn RIGHT RADIAL
[2025-11-10 06:33] LABS: Arterial Blood Gas Ventilator rate 16 /MIN
[2025-11-10 06:34] LABS: Arterial Blood Gas Tidal Volume 420 ml
[2025-11-10] MEDS: DORNASE ALFA INH SOLN 1 MG/ML 2.5 ML AMP 2.5 MG INHALATION (07:53)
--- NOTE | 2025-11-10 08:49 | WPDINTPN2 ---
Assessment and Plan Assessment and Plan (1) Acute hypercapnic respiratory failure: Code(s): J96.02 - Acute respiratory failure with hypercapnia Status: Acute Assessment and Plan: Patient presented with shortness of breath, hypoxia, was a DNR/DNI, EMS asked the patient if she would want to be intubated, patient was in respiratory distress and patient said yes. ABG showed hypercapnic and hypoxic respiratory failure -11/09: Patient intubated in the ER Multifactorial hypoxic and hypercarbic community-acquired pneumonia, COVID pneumonia, CHF, history hypoventilation syndrome -11/09: patient started on add azithromycin, ceftriaxone and vancomycin. Rocephin changed to cefepime with as patient is from detention Sputum and blood culture ordered and pending Continue bronchodilators Patient received Mucomyst Conservative IV fluids due to overall volume overload Obtain CT chest to further investigate as patient is morbidly obese and chest x-rays are not very helpful Treatment of COVID as below (2) Sepsis: Code(s): A41.9 - Sepsis, unspecified organism Status: Acute Assessment and Plan: Patient presented with acute shortness of breath, hypoxic/hypercapnic, intubated -chest x-ray shows likely pneumonia and/ or congestive heart failure -11/09: blood and sputum cultures have been ordered -continue antibiotics as above Check procalcitonin level Check UA and micro (3) Pneumonia: Code(s): J18.9 - Pneumonia, unspecified organism Status: Acute Assessment and Plan: Continue antibiotics (4) COVID: Code(s): U07.1 - COVID-19 Status: Acute Assessment and Plan: Patient apparently is tested positive for COVID Continue dexamethasone remdesivir and baricitinib -airborne and contact precautions -continue isolation (5) COPD (chronic obstructive pulmonary disease): Code(s): J44.9 - Chronic obstructive pulmonary disease, unspecified Status: Acute Assessment and Plan: History of COPD/asthma, now with hypercapnic respiratory failure See above (6) Congestive heart failure: Code(s): I50.9 - Heart failure, unspecified Status: Acute Assessment and Plan: History of congestive heart failure conservative IV fluids 10/29/2025 echocardiogram: Summary 1. Technically difficult study with limited views. 2. The cardiac valves are not fully visualized in this study. 3. Overall, appears to have normal biventricular size and systolic function. (7) Hypertension: Code(s): I10 - Essential (primary) hypertension Status: Acute Assessment and Plan: Hold all antihypertensives (8) Troponin I above reference range: Code(s): R79.89 - Other specified abnormal findings of blood chemistry Status: Acute Assessment and Plan: Elevated troponins could be related to respiratory distress, type 2 infarct -repeat troponins pending (9) Hypothyroidism: Code(s): E03.9 - Hypothyroidism, unspecified Status: Acute Assessment and Plan: Continue levothyroxine Plan DVT prophylaxis: Lovenox Stress ulcer prophylaxis: Protonix Nutrition: Start tube feeds Code Status: Full Code Critical Care Time Spent: 35 minutes Due to a high probability of clinically significant, life threatening deterioration, the patient required my highest level of preparedness to intervene emergently and I personally spent this critical care time directly and personally managing the patient. This critical care time included obtaining a history; examining the patient; pulse oximetry; ordering and review of studies; arranging urgent treatment with development of a management plan; evaluation of patient's response to treatment; frequent reassessment; and discussions with other providers. It was exclusive of separately billable procedures and treating other patients and teaching time. Please see Assessment and Plan section and the rest of the note for further information on patient assessment and treatment This dictation may have been done utilizing a voice recognition system. Attempts have been made to correct errors. However, there may be uncorrected grammatical, spelling, and recognitions errors present. Subjective Date/time seen: 11/10/25 Overnight events reviewed. Afebrile Continues to be on mechanical ventilation 45% FiO2 and 5 of PEEP NPO Continues to be sedated with fentanyl Urine output on the lower side. Other Vitals acceptable Review of Systems Review of Systems: ROS unobtainable: Yes unobtainable due to endotracheal tube, unobtainable due to medical condition and unobtainable due to mental status Exam Narrative: General: Obese female intubated, sedated in no distress HEENT:? Pupils equal and reactive, sclera is clear, ETT in place Neck:? Short and thick neck Respiratory:? Coarse breath sounds bilaterally, decreased at bases, no wheezing, adequate air entry at this time Cardiac:? S1-S2 is normal, regular rate and rhythm Abdomen:? Soft, nontender, nondistended, morbidly obese, hypoactive bowel sounds Extremities:? Chronic venous stasis changes with [place] appearance, weak pedal pulses bilaterally, edema on the legs Neuro:? Patient is intubated, sedated with fentanyl, opens her eyes and follow simple commands with all 4 extremities Skin:? Skin is dry and flaky on lower extremities Psych:? Unable to assess at this time Objective Data Vital Signs Vital Signs: Vital Signs - 24 hr 11/09/25 10:41 11/09/25 10:54 11/09/25 11:13 Temperature Pulse Rate 110 H 95 Respiratory Rate 16 18 Blood Pressure 105/59 L Pulse Oximetry 100 Oxygen Delivery Room Air Mechanical Ventilation Fraction of Inspired Oxygen 11/09/25 11:16 11/09/25 11:18 11/09/25 11:19 Temperature Pulse Rate 94 92 Respiratory Rate 17 14 Blood Pressure 121/85 Pulse Oximetry 100 100 Oxygen Delivery Mechanical Ventilation Fraction of Inspired Oxygen 11/09/25 11:26 11/09/25 11:30 11/09/25 11:33 Temperature Pulse Rate 87 86 95 Respiratory Rate 17 16 Blood Pressure Pulse Oximetry 100 100 97 Oxygen Delivery Mechanical Ventilation Fraction of Inspired Oxygen 100 11/09/25 11:45 11/09/25 11:50 11/09/25 11:51 Temperature Pulse Rate 96 83 83 Respiratory Rate 19 24 H 16 Blood Pressure 106/67 Pulse Oximetry 95 100 100 Oxygen Delivery Fraction of Inspired Oxygen 11/09/25 12:00 11/09/25 12:00 11/09/25 12:01 Temperature Pulse Rate 80 80 82 Respiratory Rate 17 18 Blood Pressure 100/41 L Pulse Oximetry 100 100 Oxygen Delivery Fraction of Inspired Oxygen 11/09/25 12:07 11/09/25 12:09 11/09/25 12:15 Temperature Pulse Rate 77 76 73 Respiratory Rate 16 16 18 Blood Pressure Pulse Oximetry 100 Oxygen Delivery Fraction of Inspired Oxygen 11/09/25 12:16 11/09/25 12:19 11/09/25 12:21 Temperature 37.2 C Pulse Rate 70 72 Respiratory Rate 16 14 Blood Pressure 100/69 100/69 Pulse Oximetry 100 98 Oxygen Delivery Mechanical Ventilation Fraction of Inspired Oxygen 50 11/09/25 12:30 11/09/25 12:31 11/09/25 12:35 Temperature Pulse Rate 67 67 65 Respiratory Rate 17 20 16 Blood Pressure 97/44 L 93/47 L Pulse Oximetry 98 100 99 Oxygen Delivery Fraction of Inspired Oxygen 11/09/25 12:45 11/09/25 12:46 11/09/25 12:46 Temperature Pulse Rate 65 65 65 Respiratory Rate 17 20 19 Blood Pressure 97/46 L Pulse Oximetry 98 98 Oxygen Delivery Fraction of Inspired Oxygen 11/09/25 12:47 11/09/25 13:00 11/09/25 13:01 Temperature Pulse Rate 66 64 65 Respiratory Rate 20 19 17 Blood Pressure 82/42 L Pulse Oximetry 99 99 Oxygen Delivery Fraction of Inspired Oxygen 11/09/25 13:02 11/09/25 13:09 11/09/25 13:09 Temperature Pulse Rate 64 64 65 Respiratory Rate 18 18 18 Blood Pressure 86/47 L Pulse Oximetry 99 99 Oxygen Delivery Fraction of Inspired Oxygen 11/09/25 13:15 11/09/25 13:16 11/09/25 13:17 Temperature Pulse Rate 64 64 63 Respiratory Rate 17 17 17 Blood Pressure 85/50 L Pulse Oximetry 99 99 99 Oxygen Delivery Fraction of Inspired Oxygen 11/09/25 13:30 11/09/25 13:31 11/09/25 13:31 Temperature Pulse Rate 63 64 64 Respiratory Rate 16 16 16 Blood Pressure 101/57 L 101/57 L Pulse Oximetry 97 98 98 Oxygen Delivery Fraction of Inspired Oxygen 11/09/25 14:55 11/09/25 15:05 11/09/25 15:08 Temperature Pulse Rate 67 69 67 Respiratory Rate 16 16 Blood Pressure Pulse Oximetry 97 Oxygen Delivery Mechanical Ventilation Fraction of Inspired Oxygen 50 11/09/25 16:00 11/09/25 16:00 11/09/25 16:00 Temperature 38.2 C H Pulse Rate 64 63 65 Respiratory Rate 16 16 Blood Pressure 111/54 L Pulse Oximetry 97 Oxygen Delivery Fraction of Inspired Oxygen 11/09/25 16:59 11/09/25 17:00 11/09/25 18:00 Temperature 38.2 C H Pulse Rate 74 74 59 L Respiratory Rate 16 16 Blood Pressure 109/55 L Pulse Oximetry 95 95 Oxygen Delivery Mechanical Ventilation Fraction of Inspired Oxygen 50 11/09/25 18:00 11/09/25 18:00 11/09/25 20:00 Temperature 37.9 C H Pulse Rate 59 L 59 L Respiratory Rate 16 Blood Pressure 99/49 L Pulse Oximetry 97 Oxygen Delivery Mechanical Ventilation Fraction of Inspired Oxygen 50 11/09/25 20:00 11/09/25 20:00 11/09/25 20:00 Temperature Pulse Rate 59 L 60 Respiratory Rate 16 Blood Pressure Pulse Oximetry Oxygen Delivery Fraction of Inspired Oxygen 45 11/09/25 20:14 11/09/25 20:14 11/09/25 21:00 Temperature Pulse Rate 61 61 77 Respiratory Rate 16 16 Blood Pressure 108/55 L Pulse Oximetry 95 96 Oxygen Delivery Mechanical Ventilation Fraction of Inspired Oxygen 50 11/09/25 21:33 11/09/25 22:00 11/09/25 22:00 Temperature Pulse Rate 61 70 71 Respiratory Rate 16 16 Blood Pressure Pulse Oximetry 95 Oxygen Delivery Mechanical Ventilation Fraction of Inspired Oxygen 50 11/09/25 22:00 11/09/25 23:00 11/09/25 23:45 Temperature 37.5 C 37.2 C Pulse Rate 71 60 60 Respiratory Rate 16 16 Blood Pressure 99/44 L 103/46 L Pulse Oximetry 97 96 96 Oxygen Delivery Mechanical Ventilation Fraction of Inspired Oxygen 50 11/10/25 00:00 11/10/25 00:00 11/10/25 00:00 Temperature 37.1 C Pulse Rate 70 65 Respiratory Rate 16 Blood Pressure 157/66 H Pulse Oximetry 96 Oxygen Delivery Mechanical Ventilation Fraction of Inspired Oxygen 50 11/10/25 00:00 11/10/25 00:00 11/10/25 01:00 Temperature 37.3 C Pulse Rate 66 66 Respiratory Rate 16 16 Blood Pressure 115/46 L Pulse Oximetry 96 Oxygen Delivery Fraction of Inspired Oxygen 45 11/10/25 02:00 11/10/25 02:00 11/10/25 02:00 Temperature 37.2 C Pulse Rate 58 L 58 L 58 L Respiratory Rate 16 16 Blood Pressure 96/44 L Pulse Oximetry 97 Oxygen Delivery Fraction of Inspired Oxygen 11/10/25 02:33 11/10/25 02:33 11/10/25 03:00 Temperature 36.8 C Pulse Rate 61 61 72 Respiratory Rate 16 16 Blood Pressure 116/53 L Pulse Oximetry 96 96 Oxygen Delivery Mechanical Ventilation Fraction of Inspired Oxygen 45 11/10/25 04:00 11/10/25 04:00 11/10/25 04:00 Temperature 36.6 C Pulse Rate 80 75 Respiratory Rate 16 Blood Pressure 149/52 H Pulse Oximetry 95 Oxygen Delivery Mechanical Ventilation Fraction of Inspired Oxygen 45 11/10/25 04:00 11/10/25 04:00 11/10/25 05:00 Temperature 37.0 C Pulse Rate 75 85 Respiratory Rate 16 16 Blood Pressure 111/50 L Pulse Oximetry 96 Oxygen Delivery Fraction of Inspired Oxygen 45 11/10/25 05:15 11/10/25 06:00 11/10/25 06:00 Temperature 36.9 C Pulse Rate 81 70 70 Respiratory Rate 16 Blood Pressure 112/56 L Pulse Oximetry 96 95 Oxygen Delivery Mechanical Ventilation Fraction of Inspired Oxygen 45 11/10/25 06:00 11/10/25 07:44 11/10/25 07:44 Temperature Pulse Rate 70 74 74 Respiratory Rate 16 16 Blood Pressure Pulse Oximetry 96 Oxygen Delivery Mechanical Ventilation Fraction of Inspired Oxygen 45 11/10/25 07:50 Temperature Pulse Rate 72 Respiratory Rate 16 Blood Pressure Pulse Oximetry Oxygen Delivery Fraction of Inspired Oxygen Intake/Output Intake/Output: Intake & Output 11/07/25 11/08/25 11/09/25 11/10/25 23:59 23:59 23:59 23:59 Intake Total 2107.6 260 Output Total 225 900 Balance 1882.6 -640 Meds/Results Medications: Active Medications Generic Name Dose Route Start Last Admin Trade Name Freq PRN Reason Stop Dose Admin Acetaminophen 650 mg 11/09/25 13:04 Acetaminophen 650 Mg Suppository RECTAL Q6H PRN Mild Pain (1-3) or Fever Acetaminophen 650 mg 11/09/25 15:06 Acetaminophen 325 Mg Tablet PO Q6H PRN Mild Pain (1-3) or Fever Acetylcysteine 200 mg 11/09/25 14:35 11/10/25 07:44 Acetylcysteine 20% Inhal Soln 800 Mg/4 Ml Vial INHALATION 200 mg Q6HRT [facility] Administration Albuterol/Ipratropium 3 ml 11/10/25 08:03 Ipratropium 0.5 Mg/Albuterol Sulfate 2.5 Mg (Base) Ampul.Neb 3 Ml INHALATION Q6HRT PRN Wheezing Atorvastatin Calcium 20 mg 11/10/25 09:00 Atorvastatin 20 Mg Tablet PO DAILY YFN Baricitinib 2 mg 11/10/25 11:00 Baricitinib 2 Mg Tablet PO 11/23/25 11:01 DAILY@1100 [facility] Dexamethasone Sodium Phosphate 6 mg 11/09/25 13:00 11/09/25 13:20 Dexamethasone Sod Phos Inj 10 Mg/Ml 1 Ml Vial IV PUSH 11/18/25 13:01 6 mg Q24H YFN Administration Enoxaparin Sodium 40 mg 11/09/25 15:00 11/09/25 15:59 Enoxaparin 40 Mg/0.4 Ml Syringe SUB-Q 40 mg DAILY YFN Administration Fentanyl Citrate 2,500 mcg in 250 mls @ 10 mls/hr 11/09/25 10:45 11/10/25 06:00 Fentanyl 2,500 Mcg/Ns 250 Ml IV CONT 11/10/25 11:44 100 mcg/hr .Q25H STA 10 mls/hr Protocol Titration 100 MCG/HR Azithromycin 500 mg/ Sodium 250 mls @ 250 mls/hr 11/10/25 16:00 Chloride IVPB 11/13/25 16:59 Q24H YFN Remdesivir 100 mg in 250 mls @ 250 mls/hr 11/10/25 10:00 IVPB 11/13/25 10:59 Q24H YFN Sodium Chloride 1,000 mls @ 125 mls/hr 11/09/25 13:05 11/10/25 00:31 Normal Saline Iv IV CONT 11/11/25 07:00 125 mls/hr .Q8H YFN Administration Vancomycin HCl 1,500 mg in 500 mls @ 250 mls/hr 11/10/25 10:00 Vancomycin 1,500 Mg/Ns 500 Ml IVPB Q18H YFN Magnesium Sulfate 2 gm in 50 mls @ 25 mls/hr 11/10/25 08:00 Magnesium Sulf 2 Gm/Water 50ml IVPB 11/10/25 09:59 ONCE ONE Sodium Phosphate 20 mm/ 256.6667 mls @ 50 mls/hr 11/10/25 08:00 Dextrose IVPB 11/10/25 13:07 ONCE ONE Cefepime HCl 2 gm/ Sodium 50 mls @ 100 mls/hr 11/10/25 09:00 Chloride IVPB Q12H YFN Levothyroxine Sodium 112 mcg 11/10/25 06:30 11/10/25 05:20 Levothyroxine Sodium 112 Mcg Tablet PO 112 mcg DAILY@0630 YFN Administration Levothyroxine Sodium 25 mcg 11/10/25 06:30 11/10/25 05:20 Levothyroxine Sodium 25 Mcg Tablet PO 25 mcg DAILY@0630 YFN Administration Multi-Ingred Cream/Lotion/Oil/Oint 1 applic 12/19/25 21:00 11/09/25 21:42 Mineral Oil/White Petrolatum Ointment EACH EYE 1 applic Q12HR [facility] Administration Ondansetron HCl 4 mg 11/09/25 13:04 Ondansetron Inj 4 Mg/2 Ml Vial IV PUSH Q4H PRN Nausea Pantoprazole Sodium 40 mg 11/10/25 09:00 Pantoprazole Sodium Iv 40 Mg Vial IV PUSH QAM [facility] Radiology Results: ITS Impressions Abdomen X-Ray 11/09/25 13:22 Impression: 1. No acute abnormality. Chest X-Ray 11/10/25 07:52 IMPRESSION: 1. No significant change, with persistent bilateral edema and/or airspace disease. Labs Labs: Laboratory Results - last 24 hr 11/09/25 11/09/25 11/09/25 10:56 11:55 13:09 WBC 12.8 H RBC 4.63 Hgb 13.4 Hct 47.2 H MCV 101.9 H MCH 28.9 MCHC 28.4 L RDW 14.4 Plt Count 198 MPV 9.7 Immature Gran % (Auto) 3.3 H Neut % (Auto) 85.0 H Lymph % (Auto) 2.8 L [place] % (Auto) 7.3 Eos % (Auto) 1.3 Baso % (Auto) 0.3 Lymph # (Auto) 0.36 L [place] # (Auto) 0.9 H Eos # (Auto) 0.2 Baso # (Auto) 0.0 Abs Immat Gran (auto) 0.42 H Absolute Neuts (auto) 10.9 H Absolute Nucleated RBC 0.020 H Nucleated RBC % 0.2 PT 13.1 INR 1.0 APTT 28.1 Puncture Site Left radial ABG pH 7.345 L ABG pCO2 81.9 H* ABG pO2 314.4 H ABG PO2/FiO2 Ratio 3.14 ABG HCO3 43.7 H ABG O2 Saturation 99.7 ABG O2 Content 19.4 ABG Base Excess 14.1 A-a Gradient 316.7 Oxyhemoglobin 98.3 Carboxyhemoglobin 1.3 Methemoglobin 0.3 Reduced Hemoglobin 0.1 Total Hemoglobin 13.5 O2 Delivery Device Ventilator O2 Liters/Min Not Reportable Minute Volume Not Reportable Vent Rate 16 Vent Mode Cmv FiO2 100 Tidal Volume 420 PEEP 5 Peak Inspir Pressure Not Reportable Pressure Support Not Reportable Sodium 141 Potassium 5.0 Chloride 94 L Carbon Dioxide > 40 H Anion Gap BUN 22 H D Creatinine 1.18 H Estim Creat Clear Calc 59 Estimated GFR 45 L Glucose 154 H Lactic Acid 1.7 Calcium 8.6 Phosphorus Magnesium Total Bilirubin 0.4 AST 27 ALT 20 Alkaline Phosphatase 106 Troponin I 0.080 H* C-Reactive Protein 24.5 H NT-Pro-B Natriuret Pep 1890 H Total Protein 7.1 Albumin 3.6 TSH Nasal MRSA (PCR) Detected A* Influenza A (RT-PCR) Influenza B (RT-PCR) RSV (RT-PCR) SARS-CoV-2 RNA (RT-PCR) 11/09/25 11/09/25 11/09/25 13:28 15:02 16:07 WBC RBC Hgb Hct MCV MCH MCHC RDW Plt Count MPV Immature Gran % (Auto) Neut % (Auto) Lymph % (Auto) [place] % (Auto) Eos % (Auto) Baso % (Auto) Lymph # (Auto) [place] # (Auto) Eos # (Auto) Baso # (Auto) Abs Immat Gran (auto) Absolute Neuts (auto) Absolute Nucleated RBC Nucleated RBC % PT INR APTT Puncture Site Right radial ABG pH 7.454 H ABG pCO2 49.4 H ABG pO2 123.9 H ABG PO2/FiO2 Ratio 2.48 ABG HCO3 33.9 H ABG O2 Saturation 98.6 ABG O2 Content 17.8 ABG Base Excess 8.6 A-a Gradient 177.0 Oxyhemoglobin 97.6 Carboxyhemoglobin 1.2 Methemoglobin 0.2 Reduced Hemoglobin 1.0 Total Hemoglobin 12.8 O2 Delivery Device Ventilator O2 Liters/Min Not Reportable Minute Volume Not Reportable Vent Rate 16 Vent Mode Cmv FiO2 50 Tidal Volume 420 PEEP 5 Peak Inspir Pressure Not Reportable Pressure Support Not Reportable Sodium Potassium Chloride Carbon Dioxide Anion Gap BUN Creatinine Estim Creat Clear Calc Estimated GFR Glucose Lactic Acid Calcium Phosphorus Magnesium Total Bilirubin AST ALT Alkaline Phosphatase Troponin I 0.130 H* D C-Reactive Protein NT-Pro-B Natriuret Pep Total Protein Albumin TSH Nasal MRSA (PCR) Influenza A (RT-PCR) Negative Influenza B (RT-PCR) Negative RSV (RT-PCR) Negative SARS-CoV-2 RNA (RT-PCR) Positive A 11/09/25 11/10/25 11/10/25 20:17 04:01 05:13 WBC 13.4 H RBC 3.71 L Hgb 10.5 L Hct 35.9 L MCV 96.8 D MCH 28.3 MCHC 29.2 L RDW 14.4 Plt Count 146 L MPV 11.2 H Immature Gran % (Auto) Neut % (Auto) Lymph % (Auto) [place] % (Auto) Eos % (Auto) Baso % (Auto) Lymph # (Auto) [place] # (Auto) Eos # (Auto) Baso # (Auto) Abs Immat Gran (auto) Absolute Neuts (auto) Absolute Nucleated RBC Nucleated RBC % PT 14.4 INR 1.1 APTT 34.5 Puncture Site Right radial ABG pH 7.409 ABG pCO2 54.7 H ABG pO2 102.4 H ABG PO2/FiO2 Ratio 2.28 ABG HCO3 33.8 H ABG O2 Saturation 97.6 ABG O2 Content 15.8 L ABG Base Excess 7.8 A-a Gradient 156.2 Oxyhemoglobin 97.5 Carboxyhemoglobin 0.2 Methemoglobin 0.1 Reduced Hemoglobin 2.2 Total Hemoglobin 11.4 L O2 Delivery Device Ventilator O2 Liters/Min Not Reportable Minute Volume Not Reportable Vent Rate 16 Vent Mode Cmv FiO2 45 Tidal Volume 420 PEEP 5 Peak Inspir Pressure Not Reportable Pressure Support Not Reportable Sodium 140 Potassium 4.7 Chloride 101 Carbon Dioxide 34 H Anion Gap 5 BUN 25 H Creatinine 1.07 H Estim Creat Clear Calc 64 Estimated GFR 51 L Glucose 151 H Lactic Acid 2.6 H Calcium 8.4 Phosphorus 1.5 L Magnesium 1.8 Total Bilirubin 0.4 AST 20 ALT 16 Alkaline Phosphatase 77 Troponin I 0.094 H* D C-Reactive Protein 26.2 H NT-Pro-B Natriuret Pep Total Protein 5.5 L Albumin 3.2 L TSH 0.665 Nasal MRSA (PCR) Influenza A (RT-PCR) Influenza B (RT-PCR) RSV (RT-PCR) SARS-CoV-2 RNA (RT-PCR) 11/10/25 06:44 WBC RBC Hgb Hct MCV MCH MCHC RDW Plt Count MPV Immature Gran % (Auto) Neut % (Auto) Lymph % (Auto) [place] % (Auto) Eos % (Auto) Baso % (Auto) Lymph # (Auto) [place] # (Auto) Eos # (Auto) Baso # (Auto) Abs Immat Gran (auto) Absolute Neuts (auto) Absolute Nucleated RBC Nucleated RBC % PT INR APTT Puncture Site ABG pH ABG pCO2 ABG pO2 ABG PO2/FiO2 Ratio ABG HCO3 ABG O2 Saturation ABG O2 Content ABG Base Excess A-a Gradient Oxyhemoglobin Carboxyhemoglobin Methemoglobin Reduced Hemoglobin Total Hemoglobin O2 Delivery Device O2 Liters/Min Minute Volume Vent Rate Vent Mode FiO2 Tidal Volume PEEP Peak Inspir Pressure Pressure Support Sodium Potassium Chloride Carbon Dioxide Anion Gap BUN Creatinine Estim Creat Clear Calc Estimated GFR Glucose Lactic Acid 3.3 H Calcium Phosphorus Magnesium Total Bilirubin AST ALT Alkaline Phosphatase Troponin I C-Reactive Protein NT-Pro-B Natriuret Pep Total Protein Albumin TSH Nasal MRSA (PCR) Influenza A (RT-PCR) Influenza B (RT-PCR) RSV (RT-PCR) SARS-CoV-2 RNA (RT-PCR) Quality VTE Prophylaxis VTE prophylaxis: pharmacologic ordered
[2025-11-10 08:54] LABS: Immature Granulocyte Percent A 0.5 % (0-0.5); Lymphocytes Absolute Auto 0.30 K/mm3 (0.9-3.2); Nucleated Red Blood Cells Absolute Auto 0.000 K/mm3 (0.0-0.012); Nucleated Red Blood Cells Perc 0.0 % (0.0-0.2)
[2025-11-10] MEDS: MAGNESIUM SULF 2 GM/WATER 50ML 2 GM/50 ML BAG IVPB (08:59)
[2025-11-10] MEDS: CEFEPIME 2 GM in SODIUM CHLORIDE 0.9% IV 50 ML 100 ML IVPB ×2 (09:00→20:56)
[2025-11-10] MEDS: ENOXAPARIN 40 MG/0.4 ML SYRINGE SUB-Q (09:00)
[2025-11-10] MEDS: ATORVASTATIN 20 MG TABLET PO (09:00)
[2025-11-10] MEDS: PANTOPRAZOLE SODIUM IV 40 MG VIAL IV PUSH (09:00)
[2025-11-10 09:31] LABS: Procalcitonin 0.4 ng/mL
[2025-11-10] MEDS: SODIUM PHOSPHATE 20 MM in DEXTROSE 5% IN WATER 250 ML 50 MM IVPB (10:16)
[2025-11-10] MEDS: REMDESIVIR 100 MG/NS 250 ML 100 MG/250 ML BAG 250 MG IVPB (10:21)
[2025-11-10] MEDS: MINERAL OIL/WHITE PETROLATUM OINTMENT 1 APPLIC EACH EYE ×2 (10:29→20:57)
[2025-11-10 10:55] LABS: Add Urine Microscopic? YES; Appearance Urine Clear (Clear); Glucose Urine UA Negative (Negative); Leukocyte Esterase Ur 1+ LEU/UL (Negative); Need Manual Microscopic Reviewed; Nitrate Urine Negative (Negative); Non Pathogenic Casts >20; Specific Grav Ur 1.023 (1.001-1.035)
[2025-11-10] MEDS: VANCOMYCIN 1,500 MG/NS 500 ML 1,500 MG/500 ML BAG 250 MG IVPB (10:56)
[2025-11-10] MEDS: BARICITINIB 2 MG TABLET PO (10:56)
[2025-11-10] MEDS: dexAMETHasone SOD PHOS INJ 10 MG/ML 1 ML VIAL 6 MG IV PUSH (12:56)
[2025-11-10] MEDS: AZITHROMYCIN IV 500 MG in SODIUM CHLORIDE 0.9% IV 250 ML IVPB (16:15)
[2025-11-10] MEDS: FENTANYL 2,500MCG/NS250ML(*CRX 2,500 MCG/250 ML BAG 10 MCG IV CONT (17:02)
[2025-11-11] VITALS (39 sets, daily range): BP systolic 95–176; BP diastolic 48–82; PULSE 52–123; RESP 14–22; TEMP 36.5–38.6; O2SAT 93–99
[2025-11-11] MEDS: IPRATROPIUM 0.5 MG/ALBUTEROL SULFATE 2.5 MG (BASE) AMPUL.NEB 3 ML INHALATION ×2 (01:32→08:15)
[2025-11-11] MEDS: ACETAMINOPHEN 325 MG TABLET 650 MG PO (01:38)
[2025-11-11 03:46] LABS: Hematocrit 35.6 % (37.0-47.0); Hemoglobin 10.4 g/dL (12.0-15.0); Mean Corpuscular HGB Conc 29.2 g/dl (32-36); Mean Corpuscular Hemoglobin 28.7 pg (26-34); Mean Corpuscular Volume 98.1 fl (80-100); Platelet Count Result 166 k/mm3 (150-375); Red Blood Count 3.63 M/mm3 (4.2-5.4); White Blood Count 14.5 K/mm3 (4.5-10.0)
[2025-11-11 03:58] LABS: INR 1.1; Partial Thromboplastin Time 31.5 Seconds (22.3-36.8); Prothrombin Time 14.3 Seconds (11.1-14.7)
[2025-11-11 04:05] LABS: Alanine Aminotransferase 18 U/L (6-35); Albumin Level 3.6 g/dL (3.5-5.1); Alkaline Phosphatase 77 U/L (38-126); Anion Gap 6 mmol/L (4-12); Aspartate Amino Transferase 25 U/L (14-36); Bilirubin,Total 0.5 mg/dL (0.2-1.3); Blood Urea Nitrogen 30 mg/dL (7-17); Calcium 8.5 mg/dL (8.4-10.2); Carbon Dioxide 33 mmol/L (22-30); Chloride 103 mmol/L (98-107); Estimated CRCL calculation 56 ml/min; Estimated Glomerular Filt Rate 44; Glucose 154 mg/dL (65-110); Magnesium 2.1 mg/dL (1.6-2.3); Potassium 4.5 mmol/L (3.4-5.0); Sodium 142 mmol/L (137-145); Total Protein 6.4 g/dL (6.3-8.2)
[2025-11-11] MEDS: LEVOTHYROXINE SODIUM 112 MCG TABLET PO (04:49)
[2025-11-11] MEDS: LEVOTHYROXINE SODIUM 25 MCG TABLET PO (04:49)
[2025-11-11] MEDS: VANCOMYCIN 1,500 MG/NS 500 ML 1,500 MG/500 ML BAG 250 MG IVPB ×2 (04:49→21:08)
[2025-11-11 05:02] LABS: Alveolar/Arterial O2 Gradient 190.3 mmHg; Carboxyhemoglobin 0.4 % THb (0-2.0); Fractional Inspired Oxygen 50 %; HCO3 ABG 35.9 mEq/l (22.0-26.0); Methemoglobin ABG 0.1 %THb (0-1.5); Oxygen Content ABG 14.4 %vol (16.0-22.0); Oxygen Saturation ABG 96.7 % (95.0-100.0); PO2 ABG 94.0 mmHg (80.0-100.0); PO2 FiO2 Ratio Arterial Blood 1.88 %; Reduced Hemoglobin 2.7 %THb (0-5.0)
[2025-11-11 05:05] LABS: Modified Allen's Test Pass; PCO2 ABG 64.2 mmHg (35.0-45.0); Site Drawn RIGHT RADIAL
[2025-11-11 05:06] LABS: Arterial Blood Gas Tidal Volume 380 ml; Arterial Blood Gas Ventilator rate 16 /MIN
[2025-11-11 08:49] LABS: Band Neutrophils Percent 1 % (0-6); Basophils Absolute Manual 0.00 K/mm3 (0.0-0.1); Basophils Percent Manual 0 % (0-1); Eosinophils Absolute Manual 0.00 K/mm3 (0.02-0.50); Eosinophils Percent Manual 0 % (0-4); Lymphocytes Absolute Manual 0.14 K/mm3 (1.1-4.5); Lymphocytes Percent Manual 1 % (18-44); Monocytes Absolute Manual 0.14 K/mm3 (0.1-0.90); Monocytes Percent Manual 1 % (3-9); Neutrophils Absolute Manual 13.19 K/mm3 (1.3-6.7); Neutrophils Percent Manual 90 % (46-73); Total Cells Counted 100
[2025-11-11 08:50] LABS: Anisocytosis Occasional; Macrocytosis Occasional (NORMAL); Polychromasia Occasional; Schistocytes None Seen
[2025-11-11 08:51] LABS: Basophilic Stippling Occasional
[2025-11-11] MEDS: PANTOPRAZOLE SODIUM IV 40 MG VIAL IV PUSH (08:58)
[2025-11-11] MEDS: ATORVASTATIN 20 MG TABLET PO (08:58)
[2025-11-11] MEDS: FUROSEMIDE INJ 100 MG/10 ML VIAL 80 MG IV PUSH (08:58)
[2025-11-11] MEDS: ENOXAPARIN 40 MG/0.4 ML SYRINGE SUB-Q (08:58)
[2025-11-11] MEDS: CEFEPIME 2 GM in SODIUM CHLORIDE 0.9% IV 50 ML 100 ML IVPB ×2 (08:58→20:26)
[2025-11-11] MEDS: MINERAL OIL/WHITE PETROLATUM OINTMENT 1 APPLIC EACH EYE ×2 (08:59→20:27)
--- NOTE | 2025-11-11 09:30 | P.PNINT_ITS ---
Assessment and Plan Assessment and Plan (1) Acute hypercapnic respiratory failure: Code(s): J96.02 - Acute respiratory failure with hypercapnia Status: Acute Assessment and Plan: Patient presented with shortness of breath, hypoxia, was a DNR/DNI, EMS asked the patient if she would want to be intubated, patient was in respiratory distress and patient said yes. ABG showed hypercapnic and hypoxic respiratory failure -11/09: Patient intubated in the ER Multifactorial hypoxic and hypercarbic community-acquired pneumonia, COVID pneumonia, CHF, history hypoventilation syndrome -11/09: patient started on add azithromycin, ceftriaxone and vancomycin. Rocephin changed to cefepime with as patient is from care home Sputum and blood culture ordered and AND NEGATIVE TILL NOW CT chest 11/10 IMPRESSION: 1. Satisfactory position of endotracheal tube and nasogastric tube. 2. Perihilar vascular congestion of both lungs. Platelike atelectasis of mid left lung. Partial atelectasis of lung bases on both sides. Minimal bilateral pleural effusion. 3. Distended gallbladder containing calcified gallstone. Atrophic kidneys. ABG vent settings reviewed currently on 8 of PEEP and 50% FiO2 Start Lasix Continue bronchodilators Treatment of COVID as below (2) Sepsis: Code(s): A41.9 - Sepsis, unspecified organism Status: Acute Assessment and Plan: Patient presented with acute shortness of breath, hypoxic/hypercapnic, intubated -chest x-ray shows likely pneumonia and/ or congestive heart failure -11/09: blood and sputum cultures negative till now -continue antibiotics as above Check procalcitonin level 0.4 UA suggestive UTI. Culture pending (3) Pneumonia: Code(s): J18.9 - Pneumonia, unspecified organism Status: Acute Assessment and Plan: Continue antibiotics as above (4) COVID: Code(s): U07.1 - COVID-19 Status: Acute Assessment and Plan: Patient apparently is tested positive for COVID Continue dexamethasone remdesivir and baricitinib -airborne and contact precautions -continue isolation (5) COPD (chronic obstructive pulmonary disease): Code(s): J44.9 - Chronic obstructive pulmonary disease, unspecified Status: Acute Assessment and Plan: History of COPD/asthma, now with hypercapnic respiratory failure See above (6) Congestive heart failure: Code(s): I50.9 - Heart failure, unspecified Status: Acute Assessment and Plan: History of congestive heart failure Start Lasix 10/29/2025 echocardiogram: Summary 1. Technically difficult study with limited views. 2. The cardiac valves are not fully visualized in this study. 3. Overall, appears to have normal biventricular size and systolic function. (7) Hypertension: Code(s): I10 - Essential (primary) hypertension Status: Acute Assessment and Plan: Hold all antihypertensives (8) Troponin I above reference range: Code(s): R79.89 - Other specified abnormal findings of blood chemistry Status: Acute Assessment and Plan: Elevated troponins could be related to respiratory distress, type 2 infarct Troponin trended down Aspirin statin (9) Hypothyroidism: Code(s): E03.9 - Hypothyroidism, unspecified Status: Acute Assessment and Plan: Continue levothyroxine Plan DVT prophylaxis: Lovenox Stress ulcer prophylaxis: Protonix Nutrition: Continue tube feeds Code Status: Full Code Critical Care Time Spent: 30 minutes Due to a high probability of clinically significant, life threatening deterioration, the patient required my highest level of preparedness to intervene emergently and I personally spent this critical care time directly and personally managing the patient. This critical care time included obtaining a history; examining the patient; pulse oximetry; ordering and review of studies; arranging urgent treatment with development of a management plan; evaluation of patient's response to treatment; frequent reassessment; and discussions with other providers. It was exclusive of separately billable procedures and treating other patients and teaching time. Please see Assessment and Plan section and the rest of the note for further information on patient assessment and treatment This dictation may have been done utilizing a voice recognition system. Attempts have been made to correct errors. However, there may be uncorrected grammatical, spelling, and recognitions errors present. Subjective Date/time seen: 11/11/25 09:30 Review of Systems Review of Systems: ROS unobtainable: Yes unobtainable due to endotracheal tube, unobtainable due to medical condition and unobtainable due to mental status Exam Narrative: General: Obese female intubated, sedated in no distress HEENT:? Pupils equal and reactive, sclera is clear, ETT in place Neck:? Short and thick neck Respiratory:? Coarse breath sounds bilaterally, decreased at bases, no wheezing, adequate air entry at this time Cardiac:? S1-S2 is normal, regular rate and rhythm Abdomen:? Soft, nontender, nondistended, morbidly obese, hypoactive bowel sounds Extremities:? Chronic venous stasis changes with [place] appearance, weak pedal pulses bilaterally, edema on the legs Neuro:? Patient is intubated, sedated with fentanyl, opens her eyes and follow simple commands with all 4 extremities Skin:? Skin is dry and flaky on lower extremities Psych:? Unable to assess at this time Objective Data Vital Signs Vital Signs: Vital Signs - 24 hr 11/10/25 10:00 11/10/25 10:00 11/10/25 10:00 Temperature 37.2 C Pulse Rate 89 84 82 Respiratory Rate 16 16 Blood Pressure 129/60 Pulse Oximetry 96 Oxygen Delivery Fraction of Inspired Oxygen 11/10/25 11:00 11/10/25 11:20 11/10/25 12:00 Temperature 37.2 C Pulse Rate 85 75 Respiratory Rate 16 Blood Pressure 111/55 L Pulse Oximetry 99 96 Oxygen Delivery Mechanical Ventilation Fraction of Inspired Oxygen 40 60 11/10/25 12:00 11/10/25 12:00 11/10/25 12:00 Temperature 37.2 C Pulse Rate 76 81 Respiratory Rate 16 Blood Pressure 113/58 L Pulse Oximetry 99 99 Oxygen Delivery Mechanical Ventilation Fraction of Inspired Oxygen 45 11/10/25 12:00 11/10/25 13:00 11/10/25 14:00 Temperature 37.2 C Pulse Rate 71 72 95 Respiratory Rate 16 16 Blood Pressure 106/45 L Pulse Oximetry 98 Oxygen Delivery Fraction of Inspired Oxygen 11/10/25 14:00 11/10/25 14:00 11/10/25 14:07 Temperature 37.4 C Pulse Rate 97 97 78 Respiratory Rate 16 16 Blood Pressure 175/76 H Pulse Oximetry 97 97 Oxygen Delivery Mechanical Ventilation Fraction of Inspired Oxygen 40 11/10/25 14:07 11/10/25 14:10 11/10/25 15:00 Temperature 37.3 C Pulse Rate 75 72 75 Respiratory Rate 16 16 16 Blood Pressure 132/54 L Pulse Oximetry 95 Oxygen Delivery Fraction of Inspired Oxygen 11/10/25 16:00 11/10/25 16:00 11/10/25 16:00 Temperature 37.3 C Pulse Rate 73 Respiratory Rate 16 Blood Pressure 131/54 L Pulse Oximetry 97 97 Oxygen Delivery Mechanical Ventilation Fraction of Inspired Oxygen 60 60 11/10/25 16:00 11/10/25 17:00 11/10/25 17:02 Temperature 37.3 C Pulse Rate 69 69 72 Respiratory Rate 16 16 Blood Pressure 129/58 L Pulse Oximetry 95 Oxygen Delivery Fraction of Inspired Oxygen 11/10/25 17:03 11/10/25 17:25 11/10/25 18:00 Temperature Pulse Rate 69 77 65 Respiratory Rate 16 Blood Pressure Pulse Oximetry 97 Oxygen Delivery Mechanical Ventilation Fraction of Inspired Oxygen 40 11/10/25 18:00 11/10/25 18:00 11/10/25 19:00 Temperature 37.4 C 37.4 C Pulse Rate 69 61 67 Respiratory Rate 16 16 16 Blood Pressure 144/59 H 127/54 L Pulse Oximetry 95 94 Oxygen Delivery Fraction of Inspired Oxygen 11/10/25 20:00 11/10/25 20:00 11/10/25 20:00 Temperature 37.6 C Pulse Rate 64 71 Respiratory Rate 16 21 H Blood Pressure 139/61 Pulse Oximetry 95 Oxygen Delivery Fraction of Inspired Oxygen 55 11/10/25 20:00 11/10/25 20:00 11/10/25 20:15 Temperature Pulse Rate 71 73 66 Respiratory Rate 18 Blood Pressure Pulse Oximetry 97 92 Oxygen Delivery Mechanical Ventilation Mechanical Ventilation Fraction of Inspired Oxygen 55 60 11/10/25 20:15 11/10/25 21:00 11/10/25 22:00 Temperature 37.6 C Pulse Rate 66 73 62 Respiratory Rate 16 18 Blood Pressure 147/60 H Pulse Oximetry 92 97 Oxygen Delivery Mechanical Ventilation Fraction of Inspired Oxygen 60 11/10/25 22:00 11/10/25 22:00 11/10/25 23:00 Temperature 37.5 C 37.2 C Pulse Rate 63 64 55 L Respiratory Rate 16 16 16 Blood Pressure 110/46 L 125/53 L Pulse Oximetry 97 96 Oxygen Delivery Fraction of Inspired Oxygen 11/10/25 23:02 11/10/25 23:32 11/10/25 23:34 Temperature Pulse Rate 53 L 55 L Respiratory Rate 16 Blood Pressure Pulse Oximetry 97 Oxygen Delivery Mechanical Ventilation Fraction of Inspired Oxygen 50 50 11/10/25 23:37 11/11/25 00:00 11/11/25 00:00 Temperature 37.2 C Pulse Rate 55 L 52 L 52 L Respiratory Rate 16 18 Blood Pressure 146/58 H Pulse Oximetry 96 95 Oxygen Delivery Mechanical Ventilation Fraction of Inspired Oxygen 50 11/11/25 00:01 11/11/25 00:58 11/11/25 01:00 Temperature 37.7 C H Pulse Rate 55 L 115 H Respiratory Rate 16 20 Blood Pressure 162/59 H Pulse Oximetry 95 Oxygen Delivery Fraction of Inspired Oxygen 45 11/11/25 01:22 11/11/25 01:33 11/11/25 01:38 Temperature 38.1 C H Pulse Rate 116 H 123 H Respiratory Rate 22 H 20 Blood Pressure Pulse Oximetry Oxygen Delivery Fraction of Inspired Oxygen 11/11/25 02:00 11/11/25 02:00 11/11/25 02:00 Temperature 38.6 C H Pulse Rate 114 H 114 H 115 H Respiratory Rate 20 16 Blood Pressure 176/82 H Pulse Oximetry 96 Oxygen Delivery Fraction of Inspired Oxygen 11/11/25 02:31 11/11/25 02:38 11/11/25 03:00 Temperature 38.4 C H 38.2 C H 38.2 C H Pulse Rate 101 H 92 Respiratory Rate 16 16 Blood Pressure 132/58 L 121/48 L Pulse Oximetry 95 97 Oxygen Delivery Fraction of Inspired Oxygen 11/11/25 04:00 11/11/25 04:00 11/11/25 04:00 Temperature 37.7 C H Pulse Rate 92 80 Respiratory Rate 16 16 Blood Pressure 116/49 L Pulse Oximetry 97 98 Oxygen Delivery Mechanical Ventilation Fraction of Inspired Oxygen 50 50 11/11/25 04:00 11/11/25 04:00 11/11/25 04:53 Temperature Pulse Rate 80 80 81 Respiratory Rate 16 Blood Pressure Pulse Oximetry 95 Oxygen Delivery Mechanical Ventilation Fraction of Inspired Oxygen 50 11/11/25 05:00 11/11/25 06:00 11/11/25 06:00 Temperature 37.2 C 36.5 C Pulse Rate 74 77 78 Respiratory Rate 16 20 Blood Pressure 143/59 H 119/50 L Pulse Oximetry 95 94 Oxygen Delivery Fraction of Inspired Oxygen 11/11/25 06:00 11/11/25 07:00 11/11/25 08:00 Temperature 37.3 C 37.3 C Pulse Rate 66 80 79 Respiratory Rate 16 16 14 Blood Pressure 144/61 H 155/63 H Pulse Oximetry 97 96 Oxygen Delivery Fraction of Inspired Oxygen 11/11/25 08:00 11/11/25 08:00 11/11/25 08:00 Temperature Pulse Rate 86 96 Respiratory Rate 16 Blood Pressure Pulse Oximetry Oxygen Delivery Fraction of Inspired Oxygen 50 11/11/25 08:00 11/11/25 08:02 11/11/25 08:15 Temperature Pulse Rate 84 85 Respiratory Rate 16 Blood Pressure Pulse Oximetry 96 96 Oxygen Delivery Mechanical Ventilation Mechanical Ventilation Fraction of Inspired Oxygen 50 50 11/11/25 08:25 11/11/25 09:00 Temperature 37.3 C Pulse Rate 84 87 Respiratory Rate 16 16 Blood Pressure 162/67 H Pulse Oximetry 99 Oxygen Delivery Fraction of Inspired Oxygen Intake/Output Intake/Output: Intake & Output 11/08/25 11/09/25 11/10/25 11/11/25 23:59 23:59 23:59 23:59 Intake Total 2107.6 3963.3667 2220.0 Output Total 225 1675 500 Balance 1882.6 2288.3667 1720.0 Meds/Results Medications: Active Medications Generic Name Dose Route Start Last Admin Trade Name Freq PRN Reason Stop Dose Admin Acetaminophen 650 mg 11/09/25 13:04 Acetaminophen 650 Mg Suppository RECTAL Q6H PRN Mild Pain (1-3) or Fever Acetaminophen 650 mg 11/09/25 15:06 11/11/25 01:38 Acetaminophen 325 Mg Tablet PO 650 mg Q6H PRN Administration Mild Pain (1-3) or Fever Albuterol/Ipratropium 3 ml 11/10/25 08:03 11/11/25 08:15 Ipratropium 0.5 Mg/Albuterol Sulfate 2.5 Mg (Base) Ampul.Neb 3 Ml INHALATION 3 ml Q6HRT PRN Administration Wheezing Atorvastatin Calcium 20 mg 11/10/25 09:00 11/11/25 08:58 Atorvastatin 20 Mg Tablet PO 20 mg DAILY YFN Administration Baricitinib 2 mg 11/10/25 11:00 11/10/25 10:56 Baricitinib 2 Mg Tablet PO 11/23/25 11:01 2 mg DAILY@1100 YFN Administration Dexamethasone Sodium Phosphate 6 mg 11/09/25 13:00 11/10/25 12:56 Dexamethasone Sod Phos Inj 10 Mg/Ml 1 Ml Vial IV PUSH 11/18/25 13:01 6 mg Q24H YFN Administration Enoxaparin Sodium 40 mg 11/09/25 15:00 11/11/25 08:58 Enoxaparin 40 Mg/0.4 Ml Syringe SUB-Q 40 mg DAILY YFN Administration Azithromycin 500 mg/ Sodium 250 mls @ 250 mls/hr 11/10/25 16:00 11/10/25 17:15 Chloride IVPB 11/13/25 16:59 Infused Q24H YFN Infusion Remdesivir 100 mg in 250 mls @ 250 mls/hr 11/10/25 10:00 11/10/25 11:21 IVPB 11/13/25 10:59 Infused Q24H YFN Infusion Vancomycin HCl 1,500 mg in 500 mls @ 250 mls/hr 11/10/25 10:00 11/11/25 06:49 Vancomycin 1,500 Mg/Ns 500 Ml IVPB Infused Q18H YFN Infusion Cefepime HCl 2 gm/ Sodium 50 mls @ 100 mls/hr 11/10/25 09:00 11/11/25 08:58 Chloride IVPB 100 mls/hr Q12H YFN Administration Fentanyl Citrate 2,500 mcg in 250 mls @ 10 mls/hr 11/10/25 13:05 11/11/25 08:00 Fentanyl 2,500 Mcg/Ns 250 Ml IV CONT 100 mcg/hr .Q25H YFN 10 mls/hr Protocol Titration 100 MCG/HR Levothyroxine Sodium 112 mcg 11/10/25 06:30 11/11/25 04:49 Levothyroxine Sodium 112 Mcg Tablet PO 112 mcg DAILY@0630 YFN Administration Levothyroxine Sodium 25 mcg 11/10/25 06:30 11/11/25 04:49 Levothyroxine Sodium 25 Mcg Tablet PO 25 mcg DAILY@0630 YFN Administration Multi-Ingred Cream/Lotion/Oil/Oint 1 applic 11/09/25 21:00 11/11/25 08:59 Mineral Oil/White Petrolatum Ointment EACH EYE 1 applic Q12HR YFN Administration Ondansetron HCl 4 mg 11/09/25 13:04 Ondansetron Inj 4 Mg/2 Ml Vial IV PUSH Q4H PRN Nausea Pantoprazole Sodium 40 mg 11/10/25 09:00 11/11/25 08:58 Pantoprazole Sodium Iv 40 Mg Vial IV PUSH 40 mg QAM YFN Administration Radiology Results: ITS Impressions Abdomen X-Ray 11/09/25 13:22 Impression: 1. No acute abnormality. Chest/Abdomen/Pelvis CT 11/10/25 14:11 IMPRESSION: 1. Satisfactory position of endotracheal tube and nasogastric tube. 2. Perihilar vascular congestion of both lungs. Platelike atelectasis of mid left lung. Partial atelectasis of lung bases on both sides. Minimal bilateral pleural effusion. 3. Distended gallbladder containing calcified gallstone. Atrophic kidneys. Chest X-Ray 11/11/25 07:30 Impression: 1: Progression of bilateral airspace disease which may represent edema and/or pneumonia. Labs Labs: Laboratory Results - last 24 hr 11/10/25 11/10/25 11/10/25 06:44 10:13 11:26 WBC RBC Hgb Hct MCV MCH MCHC RDW Plt Count MPV Immature Gran % (Auto) Neut % (Auto) Lymph % (Auto) [place] % (Auto) Eos % (Auto) Baso % (Auto) Lymph # (Auto) [place] # (Auto) Eos # (Auto) Baso # (Auto) Abs Immat Gran (auto) Absolute Neuts (auto) Absolute Nucleated RBC Total Counted Neutrophils % (Manual) Band Neutrophils % Lymphocytes % (Manual) Monocytes % (Manual) Eosinophils % (Manual) Basophils % (Manual) Nucleated RBC % Abs Neuts (Manual) Abs Lymphs (Manual) Abs Monocytes (Manual) Absolute Eos (Manual) Abs Basophils (Manual) Platelet Estimate Polychromasia Basophilic Stippling Anisocytosis Macrocytosis Schistocytes PT INR APTT Puncture Site ABG pH ABG pCO2 ABG pO2 ABG PO2/FiO2 Ratio ABG HCO3 ABG O2 Saturation ABG O2 Content ABG Base Excess A-a Gradient Oxyhemoglobin Carboxyhemoglobin Methemoglobin Reduced Hemoglobin Total Hemoglobin O2 Delivery Device O2 Liters/Min Minute Volume Vent Rate Vent Mode FiO2 Tidal Volume PEEP Peak Inspir Pressure Pressure Support Sodium Potassium Chloride Carbon Dioxide Anion Gap BUN Creatinine Estim Creat Clear Calc Estimated GFR Glucose POC Capillary Glucose 121 H Calcium Phosphorus Magnesium Total Bilirubin AST ALT Alkaline Phosphatase Total Protein Albumin Procalcitonin 0.4 Urine Color Yellow Urine Appearance Clear Urine pH 8.5 Ur Specific [place] 1.023 Urine Protein 3+ H Urine Glucose (UA) Negative Urine Ketones Negative Ur Blood (Man) 1+ H Urine Nitrate Negative Urine Bilirubin Negative Urine Urobilinogen 1.0 Add Ur Microanalysis Reviewed Leukocyte Esterase Rfl 1+ H Urine RBC 21-50 H Urine WBC 21-50 H Ur Squamous Epith Cells Occasional Urine Bacteria None seen Urine Casts >20 Hyaline Casts Present Vancomycin Trough 11/10/25 11/10/25 11/11/25 17:31 23:06 03:22 WBC 14.5 H RBC 3.63 L Hgb 10.4 L Hct 35.6 L MCV 98.1 MCH 28.7 MCHC 29.2 L RDW 15.3 H Plt Count 166 MPV 10.0 Immature Gran % (Auto) Not Reportable Neut % (Auto) Not Reportable Lymph % (Auto) Not Reportable [place] % (Auto) Not Reportable Eos % (Auto) Not Reportable Baso % (Auto) Not Reportable Lymph # (Auto) Not Reportable [place] # (Auto) Not Reportable Eos # (Auto) Not Reportable Baso # (Auto) Not Reportable Abs Immat Gran (auto) Not Reportable Absolute Neuts (auto) Not Reportable Absolute Nucleated RBC Not Reportable Total Counted 100 Neutrophils % (Manual) 90 H Band Neutrophils % 1 Lymphocytes % (Manual) 1 L Monocytes % (Manual) 1 L Eosinophils % (Manual) 0 Basophils % (Manual) 0 Nucleated RBC % Not Reportable Abs Neuts (Manual) 13.19 H Abs Lymphs (Manual) 0.14 L Abs Monocytes (Manual) 0.14 Absolute Eos (Manual) 0.00 L Abs Basophils (Manual) 0.00 Platelet Estimate Adequate Polychromasia Occasional Basophilic Stippling Occasional Anisocytosis Occasional Macrocytosis Occasional Schistocytes None seen PT 14.3 INR 1.1 APTT 31.5 Puncture Site ABG pH ABG pCO2 ABG pO2 ABG PO2/FiO2 Ratio ABG HCO3 ABG O2 Saturation ABG O2 Content ABG Base Excess A-a Gradient Oxyhemoglobin Carboxyhemoglobin Methemoglobin Reduced Hemoglobin Total Hemoglobin O2 Delivery Device O2 Liters/Min Minute Volume Vent Rate Vent Mode FiO2 Tidal Volume PEEP Peak Inspir Pressure Pressure Support Sodium 142 Potassium 4.5 Chloride 103 Carbon Dioxide 33 H Anion Gap 6 BUN 30 H Creatinine 1.22 H Estim Creat Clear Calc 56 Estimated GFR 44 L Glucose 154 H POC Capillary Glucose 137 H 139 H Calcium 8.5 Phosphorus 4.1 Magnesium 2.1 Total Bilirubin 0.5 AST 25 ALT 18 Alkaline Phosphatase 77 Total Protein 6.4 Albumin 3.6 Procalcitonin Urine Color Urine Appearance Urine pH Ur Specific [place] Urine Protein Urine Glucose (UA) Urine Ketones Ur Blood (Man) Urine Nitrate Urine Bilirubin Urine Urobilinogen Add Ur Microanalysis Leukocyte Esterase Rfl Urine RBC Urine WBC Ur Squamous Epith Cells Urine Bacteria Urine Casts Hyaline Casts Vancomycin Trough 15.7 11/11/25 04:28 WBC RBC Hgb Hct MCV MCH MCHC RDW Plt Count MPV Immature Gran % (Auto) Neut % (Auto) Lymph % (Auto) [place] % (Auto) Eos % (Auto) Baso % (Auto) Lymph # (Auto) [place] # (Auto) Eos # (Auto) Baso # (Auto) Abs Immat Gran (auto) Absolute Neuts (auto) Absolute Nucleated RBC Total Counted Neutrophils % (Manual) Band Neutrophils % Lymphocytes % (Manual) Monocytes % (Manual) Eosinophils % (Manual) Basophils % (Manual) Nucleated RBC % Abs Neuts (Manual) Abs Lymphs (Manual) Abs Monocytes (Manual) Absolute Eos (Manual) Abs Basophils (Manual) Platelet Estimate Polychromasia Basophilic Stippling Anisocytosis Macrocytosis Schistocytes PT INR APTT Puncture Site Right radial ABG pH 7.366 ABG pCO2 64.2 H* ABG pO2 94.0 ABG PO2/FiO2 Ratio 1.88 ABG HCO3 35.9 H ABG O2 Saturation 96.7 ABG O2 Content 14.4 L ABG Base Excess 8.9 A-a Gradient 190.3 Oxyhemoglobin 96.8 Carboxyhemoglobin 0.4 Methemoglobin 0.1 Reduced Hemoglobin 2.7 Total Hemoglobin 10.5 L O2 Delivery Device Ventilator O2 Liters/Min Not Reportable Minute Volume Not Reportable Vent Rate 16 Vent Mode Cmv FiO2 50 Tidal Volume 380 PEEP 8 Peak Inspir Pressure Not Reportable Pressure Support Not Reportable Sodium Potassium Chloride Carbon Dioxide Anion Gap BUN Creatinine Estim Creat Clear Calc Estimated GFR Glucose POC Capillary Glucose Calcium Phosphorus Magnesium Total Bilirubin AST ALT Alkaline Phosphatase Total Protein Albumin Procalcitonin Urine Color Urine Appearance Urine pH Ur Specific [place] Urine Protein Urine Glucose (UA) Urine Ketones Ur Blood (Man) Urine Nitrate Urine Bilirubin Urine Urobilinogen Add Ur Microanalysis Leukocyte Esterase Rfl Urine RBC Urine WBC Ur Squamous Epith Cells Urine Bacteria Urine Casts Hyaline Casts Vancomycin Trough Quality VTE Prophylaxis VTE prophylaxis: pharmacologic ordered
[2025-11-11] MEDS: REMDESIVIR 100 MG/NS 250 ML 100 MG/250 ML BAG 250 MG IVPB (10:30)
[2025-11-11] MEDS: BARICITINIB 2 MG TABLET PO (11:43)
[2025-11-11] MEDS: dexAMETHasone SOD PHOS INJ 10 MG/ML 1 ML VIAL 6 MG IV PUSH (12:00)
[2025-11-11] MEDS: AZITHROMYCIN IV 500 MG in SODIUM CHLORIDE 0.9% IV 250 ML IVPB (15:01)
[2025-11-11] MEDS: FENTANYL 2,500MCG/NS250ML(*CRX 2,500 MCG/250 ML BAG 10 MCG IV CONT (17:38)
[2025-11-12] VITALS (37 sets, daily range): BP systolic 101–182; BP diastolic 45–92; PULSE 47–78; RESP 14–22; TEMP 37–38.6; O2SAT 94–98; BMI 53.9
[2025-11-12 03:30] LABS: Hematocrit 33.4 % (37.0-47.0); Hemoglobin 10.0 g/dL (12.0-15.0); Immature Granulocyte Percent A 0.9 % (0-0.5); Lymphocytes Absolute Auto 0.49 K/mm3 (0.9-3.2); Mean Corpuscular HGB Conc 29.9 g/dl (32-36); Mean Corpuscular Hemoglobin 28.7 pg (26-34); Mean Corpuscular Volume 96.0 fl (80-100); Nucleated Red Blood Cells Absolute Auto 0.000 K/mm3 (0.0-0.012); Nucleated Red Blood Cells Perc 0.0 % (0.0-0.2); Platelet Count Result 155 k/mm3 (150-375); Red Blood Count 3.48 M/mm3 (4.2-5.4); White Blood Count 10.5 K/mm3 (4.5-10.0)
[2025-11-12 03:48] LABS: Alanine Aminotransferase 22 U/L (6-35); Albumin Level 3.4 g/dL (3.5-5.1); Alkaline Phosphatase 78 U/L (38-126); Anion Gap 5 mmol/L (4-12); Aspartate Amino Transferase 38 U/L (14-36); Bilirubin,Total 0.5 mg/dL (0.2-1.3); Blood Urea Nitrogen 41 mg/dL (7-17); Calcium 8.7 mg/dL (8.4-10.2); Carbon Dioxide 34 mmol/L (22-30); Chloride 102 mmol/L (98-107); Estimated CRCL calculation 63 ml/min; Estimated Glomerular Filt Rate 48; Glucose 145 mg/dL (65-110); Magnesium 2.0 mg/dL (1.6-2.3); Potassium 4.4 mmol/L (3.4-5.0); Sodium 141 mmol/L (137-145); Total Protein 6.3 g/dL (6.3-8.2)
[2025-11-12 03:50] LABS: INR 1.1; Prothrombin Time 14.4 Seconds (11.1-14.7)
[2025-11-12 03:51] LABS: Partial Thromboplastin Time 35.8 Seconds (22.3-36.8)
[2025-11-12 04:57] LABS: Alveolar/Arterial O2 Gradient 165.1 mmHg; Carboxyhemoglobin 0.3 % THb (0-2.0); Fractional Inspired Oxygen 50 %; HCO3 ABG 32.5 mEq/l (22.0-26.0); Methemoglobin ABG 0.2 %THb (0-1.5); Oxygen Content ABG 15.0 %vol (16.0-22.0); Oxygen Saturation ABG 98.4 % (95.0-100.0); PCO2 ABG 57.3 mmHg (35.0-45.0); PO2 ABG 126.9 mmHg (80.0-100.0); PO2 FiO2 Ratio Arterial Blood 2.54 %; Reduced Hemoglobin 1.2 %THb (0-5.0)
[2025-11-12 05:02] LABS: Arterial Blood Gas Tidal Volume 380 ml; Arterial Blood Gas Ventilator rate 16 /MIN; Modified Allen's Test Pass; Site Drawn RIGHT RADIAL
[2025-11-12] MEDS: LEVOTHYROXINE SODIUM 25 MCG TABLET PO (05:30)
[2025-11-12] MEDS: LEVOTHYROXINE SODIUM 112 MCG TABLET PO (05:30)
[2025-11-12] MEDS: LIDOCAINE 1% PF INJ 5 ML VIAL INFILTRATE (08:40)
[2025-11-12] MEDS: ASPIRIN 325 MG TABLET FEED TUBE (09:00)
[2025-11-12] MEDS: CEFEPIME 2 GM in SODIUM CHLORIDE 0.9% IV 50 ML 100 ML IVPB ×2 (09:53→20:44)
[2025-11-12] MEDS: ATORVASTATIN 20 MG TABLET PO (09:53)
[2025-11-12] MEDS: FUROSEMIDE INJ 100 MG/10 ML VIAL 80 MG IV PUSH ×2 (09:54→17:48)
[2025-11-12] MEDS: ENOXAPARIN 40 MG/0.4 ML SYRINGE SUB-Q (09:54)
[2025-11-12] MEDS: PANTOPRAZOLE SODIUM IV 40 MG VIAL IV PUSH (09:54)
--- NOTE | 2025-11-12 10:03 | P.PNINT_ITS ---
Assessment and Plan Assessment and Plan (1) Acute hypercapnic respiratory failure: Code(s): J96.02 - Acute respiratory failure with hypercapnia Status: Acute Assessment and Plan: Patient presented with shortness of breath, hypoxia, was a DNR/DNI, EMS asked the patient if she would want to be intubated, patient was in respiratory distress and patient said yes. ABG showed hypercapnic and hypoxic respiratory failure -11/09: Patient intubated in the ER Multifactorial hypoxic and hypercarbic community-acquired pneumonia, COVID pneumonia, CHF, history hypoventilation syndrome -11/09: patient started on add azithromycin, ceftriaxone and vancomycin. Rocephin changed to cefepime with as patient is from [facility]. Vancomycin discontinued 11/12 Sputum and blood culture ordered and AND NEGATIVE TILL NOW CT chest 11/10 IMPRESSION: 1. Satisfactory position of endotracheal tube and nasogastric tube. 2. Perihilar vascular congestion of both lungs. Platelike atelectasis of mid left lung. Partial atelectasis of lung bases on both sides. Minimal bilateral pleural effusion. 3. Distended gallbladder containing calcified gallstone. Atrophic kidneys. ABG vent settings reviewed currently on 8 of PEEP and 50% FiO2 She needs more diuresis as she has significant volume overload. I will continue Lasix and increase to b.i.d. for Continue bronchodilators Treatment of COVID as below (2) Sepsis: Code(s): A41.9 - Sepsis, unspecified organism Status: Acute Assessment and Plan: Patient presented with acute shortness of breath, hypoxic/hypercapnic, intubated -chest x-ray shows likely pneumonia and/ or congestive heart failure -11/09: blood and sputum cultures negative till now -continue antibiotics as above procalcitonin level was low at 0.4 UA suggestive UTI. Culture pending (3) Pneumonia: Code(s): J18.9 - Pneumonia, unspecified organism Status: Acute Assessment and Plan: Continue antibiotics as above (4) COVID: Code(s): U07.1 - COVID-19 Status: Acute Assessment and Plan: Patient apparently is tested positive for COVID Continue dexamethasone remdesivir and baricitinib -airborne and contact precautions -continue isolation (5) COPD (chronic obstructive pulmonary disease): Code(s): J44.9 - Chronic obstructive pulmonary disease, unspecified Status: Acute Assessment and Plan: History of COPD/asthma, now with hypercapnic respiratory failure See above (6) Congestive heart failure: Code(s): I50.9 - Heart failure, unspecified Status: Acute Assessment and Plan: History of congestive heart failure Continue Lasix 10/29/2025 echocardiogram: Summary 1. Technically difficult study with limited views. 2. The cardiac valves are not fully visualized in this study. 3. Overall, appears to have normal biventricular size and systolic function. (7) Hypertension: Code(s): I10 - Essential (primary) hypertension Status: Acute Assessment and Plan: Hold all antihypertensives (8) Troponin I above reference range: Code(s): R79.89 - Other specified abnormal findings of blood chemistry Status: Acute Assessment and Plan: Elevated troponins could be related to respiratory distress, type 2 infarct Troponin trended down Aspirin statin (9) Hypothyroidism: Code(s): E03.9 - Hypothyroidism, unspecified Status: Acute Assessment and Plan: Continue levothyroxine Plan DVT prophylaxis: Lovenox Stress ulcer prophylaxis: Protonix Nutrition: Continue tube feeds Code Status: Full Code I had extensive discussion with patient's sister and nephew yesterday. Patient does not have any biological children and was never . We discussed goals of care and code status. They wanted to discuss with other family members before making any further decisions. Continue current therapy at this time. They told me that patient is in a [facility] Critical Care Time Spent: 30 minutes Due to a high probability of clinically significant, life threatening deterio ration, the patient required my highest level of preparedness to intervene emergently and I personally spent this critical care time directly and personally managing the patient. This critical care time included obtaining a history; examining the patient; pulse oximetry; ordering and review of studies; arranging urgent treatment with development of a management plan; evaluation of patient's response to treatment; frequent reassessment; and discussions with other providers. It was exclusive of separately billable procedures and treating other patients and teaching time. Please see Assessment and Plan section and the rest of the note for further information on patient assessment and treatment This dictation may have been done utilizing a voice recognition system. Attempts have been made to correct errors. However, there may be uncorrected grammatical, spelling, and recognitions errors present. Subjective Date/time seen: 11/12/25 Overnight events reviewed. Afebrile Continues to be on mechanical ventilation 50% FiO2 and 8 of PEEP Tolerating tube feed Continues to be sedated with fentanyl Good urine output in response to Lasix. Other Vitals acceptable Review of Systems Review of Systems: ROS unobtainable: Yes unobtainable due to endotracheal tube, unobtainable due to medical condition and unobtainable due to mental status Exam Narrative: General: Obese female intubated, sedated in no distress HEENT:? Pupils equal and reactive, sclera is clear, ETT in place Neck:? Short and thick neck Respiratory:? Coarse breath sounds bilaterally, decreased at bases, no wheezing, adequate air entry at this time Cardiac:? S1-S2 is normal, regular rate and rhythm Abdomen:? Soft, nontender, nondistended, morbidly obese, hypoactive bowel sounds Extremities:? Chronic venous stasis changes with [place] appearance, weak pedal pulses bilaterally, edema on the legs Neuro:? Patient is intubated, sedated with fentanyl, opens her eyes and follow simple commands with all 4 extremities Skin:? Skin is dry and flaky on lower extremities Psych:? Unable to assess at this time Objective Data Vital Signs Vital Signs: Vital Signs - 24 hr 11/11/25 10:52 11/11/25 11:00 11/11/25 12:00 Temperature 37.3 C Pulse Rate 86 87 82 Respiratory Rate 16 16 Blood Pressure 140/61 Pulse Oximetry 95 94 Oxygen Delivery Mechanical Ventilation Fraction of Inspired Oxygen 50 11/11/25 12:00 11/11/25 12:00 11/11/25 12:00 Temperature 37.4 C Pulse Rate 83 Respiratory Rate 16 Blood Pressure 145/53 H Pulse Oximetry 95 95 Oxygen Delivery Mechanical Ventilation Fraction of Inspired Oxygen 50 50 11/11/25 12:00 11/11/25 13:00 11/11/25 14:00 Temperature 37.4 C Pulse Rate 78 69 81 Respiratory Rate 16 Blood Pressure 118/50 L Pulse Oximetry 97 Oxygen Delivery Fraction of Inspired Oxygen 11/11/25 14:00 11/11/25 14:00 11/11/25 14:26 Temperature 37.4 C Pulse Rate 84 78 79 Respiratory Rate 16 16 Blood Pressure 142/62 H Pulse Oximetry 95 94 Oxygen Delivery Mechanical Ventilation Fraction of Inspired Oxygen 50 11/11/25 15:00 11/11/25 16:00 11/11/25 16:00 Temperature 37.4 C 37.3 C Pulse Rate 85 69 Respiratory Rate 16 16 Blood Pressure 122/51 L 105/53 L Pulse Oximetry 96 94 Oxygen Delivery Fraction of Inspired Oxygen 50 11/11/25 16:00 11/11/25 16:00 11/11/25 16:00 Temperature Pulse Rate 73 69 Respiratory Rate 16 Blood Pressure Pulse Oximetry 94 Oxygen Delivery Mechanical Ventilation Fraction of Inspired Oxygen 50 11/11/25 17:00 11/11/25 17:02 11/11/25 17:38 Temperature 37.3 C Pulse Rate 76 64 73 Respiratory Rate 16 16 Blood Pressure 133/61 Pulse Oximetry 94 94 Oxygen Delivery Mechanical Ventilation Fraction of Inspired Oxygen 50 11/11/25 17:38 11/11/25 18:00 11/11/25 18:00 Temperature 37.2 C Pulse Rate 73 71 69 Respiratory Rate 16 16 Blood Pressure 134/65 Pulse Oximetry 94 Oxygen Delivery Fraction of Inspired Oxygen 11/11/25 18:00 11/11/25 19:00 11/11/25 20:00 Temperature 37.2 C 37.0 C Pulse Rate 78 75 79 Respiratory Rate 16 16 16 Blood Pressure 95/50 L 153/68 H Pulse Oximetry 95 97 Oxygen Delivery Fraction of Inspired Oxygen 11/11/25 20:00 11/11/25 20:00 11/11/25 20:00 Temperature Pulse Rate 78 Respiratory Rate 16 Blood Pressure Pulse Oximetry 97 Oxygen Delivery Mechanical Ventilation Fraction of Inspired Oxygen 50 50 11/11/25 20:00 11/11/25 21:00 11/11/25 21:25 Temperature 37.1 C Pulse Rate 77 74 75 Respiratory Rate 16 Blood Pressure 117/51 L Pulse Oximetry 95 95 Oxygen Delivery Mechanical Ventilation Fraction of Inspired Oxygen 50 11/11/25 22:00 11/11/25 22:00 11/11/25 22:00 Temperature 37.1 C Pulse Rate 73 73 73 Respiratory Rate 16 16 Blood Pressure 134/48 L Pulse Oximetry 95 Oxygen Delivery Fraction of Inspired Oxygen 11/11/25 23:00 11/12/25 00:00 11/12/25 00:00 Temperature 37.1 C Pulse Rate 73 Respiratory Rate 16 Blood Pressure 127/62 Pulse Oximetry 97 96 Oxygen Delivery Mechanical Ventilation Fraction of Inspired Oxygen 50 50 11/12/25 00:00 11/12/25 00:00 11/12/25 00:00 Temperature 37.1 C Pulse Rate 74 74 76 Respiratory Rate 16 16 Blood Pressure 130/92 H Pulse Oximetry 97 Oxygen Delivery Fraction of Inspired Oxygen 11/12/25 00:06 11/12/25 01:00 11/12/25 02:00 Temperature 37.1 C Pulse Rate 68 60 58 L Respiratory Rate 16 Blood Pressure 121/60 Pulse Oximetry 96 95 Oxygen Delivery Mechanical Ventilation Fraction of Inspired Oxygen 50 11/12/25 02:00 11/12/25 02:00 11/12/25 02:42 Temperature 37.1 C Pulse Rate 58 L 58 L 51 L Respiratory Rate 16 16 Blood Pressure 115/58 L Pulse Oximetry 96 95 Oxygen Delivery Mechanical Ventilation Fraction of Inspired Oxygen 50 11/12/25 03:00 11/12/25 04:00 11/12/25 04:00 Temperature 37.2 C 37.2 C Pulse Rate 50 L 69 69 Respiratory Rate 16 16 16 Blood Pressure 113/51 L 121/45 L Pulse Oximetry 95 95 Oxygen Delivery Fraction of Inspired Oxygen 11/12/25 04:00 11/12/25 04:00 11/12/25 05:00 Temperature 37.2 C Pulse Rate 63 68 Respiratory Rate 16 Blood Pressure 124/60 Pulse Oximetry 94 97 Oxygen Delivery Mechanical Ventilation Fraction of Inspired Oxygen 50 11/12/25 05:03 11/12/25 06:00 11/12/25 06:00 Temperature Pulse Rate 74 68 68 Respiratory Rate 18 Blood Pressure Pulse Oximetry 97 Oxygen Delivery Mechanical Ventilation Fraction of Inspired Oxygen 50 11/12/25 06:00 11/12/25 07:00 11/12/25 08:00 Temperature 37.3 C 37.4 C 37.4 C Pulse Rate 68 69 61 Respiratory Rate 18 16 16 Blood Pressure 132/64 124/51 L 116/51 L Pulse Oximetry 97 98 98 Oxygen Delivery Fraction of Inspired Oxygen 11/12/25 08:03 11/12/25 09:14 Temperature 37.2 C Pulse Rate 69 71 Respiratory Rate 16 Blood Pressure 153/72 H Pulse Oximetry 96 97 Oxygen Delivery Mechanical Ventilation Fraction of Inspired Oxygen 50 Intake/Output Intake/Output: Intake & Output 11/09/25 11/10/25 11/11/25 11/12/25 23:59 23:59 23:59 23:59 Intake Total 2107.6 3963.3667 4114.7 886 Output Total 225 1675 2900 1100 Balance 1882.6 2288.3667 1214.7 -214 Meds/Results Medications: Active Medications Generic Name Dose Route Start Last Admin Trade Name Freq PRN Reason Stop Dose Admin Acetaminophen 650 mg 11/09/25 13:04 Acetaminophen 650 Mg Suppository RECTAL Q6H PRN Mild Pain (1-3) or Fever Acetaminophen 650 mg 11/09/25 15:06 11/11/25 01:38 Acetaminophen 325 Mg Tablet PO 650 mg Q6H PRN Administration Mild Pain (1-3) or Fever Albuterol/Ipratropium 3 ml 11/10/25 08:03 11/11/25 08:15 Ipratropium 0.5 Mg/Albuterol Sulfate 2.5 Mg (Base) Ampul.Neb 3 Ml INHALATION 3 ml Q6HRT PRN Administration Wheezing Aspirin 325 mg 11/12/25 08:00 Aspirin 325 Mg Tablet FEED TUBE DAILY@0800 YFN Atorvastatin Calcium 20 mg 11/10/25 09:00 11/11/25 08:58 Atorvastatin 20 Mg Tablet PO 20 mg DAILY YFN Administration Baricitinib 2 mg 11/10/25 11:00 11/11/25 11:43 Baricitinib 2 Mg Tablet PO 11/23/25 11:01 2 mg DAILY@1100 YFN Administration Dexamethasone Sodium Phosphate 6 mg 11/09/25 13:00 11/11/25 12:00 Dexamethasone Sod Phos Inj 10 Mg/Ml 1 Ml Vial IV PUSH 11/18/25 13:01 6 mg Q24H YFN Administration Enoxaparin Sodium 40 mg 11/09/25 15:00 11/11/25 08:58 Enoxaparin 40 Mg/0.4 Ml Syringe SUB-Q 40 mg DAILY YFN Administration Furosemide 80 mg 11/12/25 09:00 Furosemide Inj 100 Mg/10 Ml Vial IV PUSH 11/12/25 17:01 BID YFN Azithromycin 500 mg/ Sodium 250 mls @ 250 mls/hr 11/10/25 16:00 11/11/25 16:01 Chloride IVPB 11/13/25 16:59 Infused Q24H YFN Infusion Remdesivir 100 mg in 250 mls @ 250 mls/hr 11/10/25 10:00 11/11/25 11:30 IVPB 11/13/25 10:59 Infused Q24H YFN Infusion Vancomycin HCl 1,500 mg in 500 mls @ 250 mls/hr 11/10/25 10:00 11/11/25 23:08 Vancomycin 1,500 Mg/Ns 500 Ml IVPB Infused Q18H YFN Infusion Cefepime HCl 2 gm/ Sodium 50 mls @ 100 mls/hr 11/10/25 09:00 11/11/25 20:56 Chloride IVPB Infused Q12H YFN Infusion Fentanyl Citrate 2,500 mcg in 250 mls @ 10 mls/hr 11/10/25 13:05 11/12/25 06:00 Fentanyl 2,500 Mcg/Ns 250 Ml IV CONT 100 mcg/hr .Q25H YFN 10 mls/hr Protocol Titration 100 MCG/HR Levothyroxine Sodium 112 mcg 11/10/25 06:30 11/12/25 05:30 Levothyroxine Sodium 112 Mcg Tablet PO 112 mcg DAILY@0630 YFN Administration Levothyroxine Sodium 25 mcg 11/10/25 06:30 11/12/25 05:30 Levothyroxine Sodium 25 Mcg Tablet PO 25 mcg DAILY@0630 YFN Administration Multi-Ingred Cream/Lotion/Oil/Oint 1 applic 11/09/25 21:00 11/11/25 20:27 Mineral Oil/White Petrolatum Ointment EACH EYE 1 applic Q12HR YFN Administration Ondansetron HCl 4 mg 11/09/25 13:04 Ondansetron Inj 4 Mg/2 Ml Vial IV PUSH Q4H PRN Nausea Pantoprazole Sodium 40 mg 11/10/25 09:00 11/11/25 08:58 Pantoprazole Sodium Iv 40 Mg Vial IV PUSH 40 mg QAM YFN Administration Sodium Chloride 10 ml 11/12/25 14:00 Central Line Flush IV PUSH Q8HR YFN Sodium Chloride 10 ml 11/12/25 09:17 Central Line Flush IV PUSH PRN PRN with TPN bag changes Sodium Chloride 20 ml 11/12/25 09:17 Central Line Flush IV PUSH PRN PRN after blood draws Radiology Results: ITS Impressions Abdomen X-Ray 11/09/25 13:22 Impression: 1. No acute abnormality. Chest/Abdomen/Pelvis CT 11/10/25 14:11 IMPRESSION: 1. Satisfactory position of endotracheal tube and nasogastric tube. 2. Perihilar vascular congestion of both lungs. Platelike atelectasis of mid left lung. Partial atelectasis of lung bases on both sides. Minimal bilateral pleural effusion. 3. Distended gallbladder containing calcified gallstone. Atrophic kidneys. Labs Labs: Laboratory Results - last 24 hr 11/11/25 11/11/25 11/11/25 11:09 17:30 23:29 WBC RBC Hgb Hct MCV MCH MCHC RDW Plt Count MPV Immature Gran % (Auto) Neut % (Auto) Lymph % (Auto) [place] % (Auto) Eos % (Auto) Baso % (Auto) Lymph # (Auto) [place] # (Auto) Eos # (Auto) Baso # (Auto) Abs Immat Gran (auto) Absolute Neuts (auto) Absolute Nucleated RBC Nucleated RBC % PT INR APTT Puncture Site ABG pH ABG pCO2 ABG pO2 ABG PO2/FiO2 Ratio ABG HCO3 ABG O2 Saturation ABG O2 Content ABG Base Excess A-a Gradient Oxyhemoglobin Carboxyhemoglobin Methemoglobin Reduced Hemoglobin Total Hemoglobin O2 Delivery Device O2 Liters/Min Minute Volume Vent Rate Vent Mode FiO2 Tidal Volume PEEP Peak Inspir Pressure Pressure Support Sodium Potassium Chloride Carbon Dioxide Anion Gap BUN Creatinine Estim Creat Clear Calc Estimated GFR Glucose POC Capillary Glucose 154 H 144 H 143 H Calcium Phosphorus Magnesium Total Bilirubin AST ALT Alkaline Phosphatase Total Protein Albumin 11/12/25 11/12/25 03:24 04:47 WBC 10.5 H RBC 3.48 L Hgb 10.0 L Hct 33.4 L MCV 96.0 MCH 28.7 MCHC 29.9 L RDW 15.3 H Plt Count 155 MPV 9.8 Immature Gran % (Auto) 0.9 H Neut % (Auto) 87.1 H Lymph % (Auto) 4.6 L [place] % (Auto) 7.0 Eos % (Auto) 0.2 Baso % (Auto) 0.2 Lymph # (Auto) 0.49 L [place] # (Auto) 0.7 H Eos # (Auto) 0.0 Baso # (Auto) 0.0 Abs Immat Gran (auto) 0.10 H Absolute Neuts (auto) 9.2 H Absolute Nucleated RBC 0.000 Nucleated RBC % 0.0 PT 14.4 INR 1.1 APTT 35.8 Puncture Site Right radial ABG pH 7.372 ABG pCO2 57.3 H ABG pO2 126.9 H ABG PO2/FiO2 Ratio 2.54 ABG HCO3 32.5 H ABG O2 Saturation 98.4 ABG O2 Content 15.0 L ABG Base Excess 6.0 A-a Gradient 165.1 Oxyhemoglobin 98.3 Carboxyhemoglobin 0.3 Methemoglobin 0.2 Reduced Hemoglobin 1.2 Total Hemoglobin 10.7 L O2 Delivery Device Ventilator O2 Liters/Min Not Reportable Minute Volume Not Reportable Vent Rate 16 Vent Mode Cmv FiO2 50 Tidal Volume 380 PEEP 8 Peak Inspir Pressure Not Reportable Pressure Support Not Reportable Sodium 141 Potassium 4.4 Chloride 102 Carbon Dioxide 34 H Anion Gap 5 BUN 41 H D Creatinine 1.12 H Estim Creat Clear Calc 63 Estimated GFR 48 L Glucose 145 H POC Capillary Glucose Calcium 8.7 Phosphorus 3.8 Magnesium 2.0 Total Bilirubin 0.5 AST 38 H ALT 22 Alkaline Phosphatase 78 Total Protein 6.3 Albumin 3.4 L Quality VTE Prophylaxis VTE prophylaxis: pharmacologic ordered
[2025-11-12] MEDS: REMDESIVIR 100 MG/NS 250 ML 100 MG/250 ML BAG 250 MG IVPB (10:36)
[2025-11-12] MEDS: BARICITINIB 2 MG TABLET PO (10:36)
[2025-11-12] MEDS: CENTRAL LINE FLUSH 10 ML IV PUSH ×2 (13:00→21:16)
[2025-11-12] MEDS: dexAMETHasone SOD PHOS INJ 10 MG/ML 1 ML VIAL 6 MG IV PUSH (13:00)
[2025-11-12 16:01] LABS: Anion Gap 5 mmol/L (4-12); Blood Urea Nitrogen 47 mg/dL (7-17); Calcium 8.8 mg/dL (8.4-10.2); Carbon Dioxide 39 mmol/L (22-30); Chloride 97 mmol/L (98-107); Estimated CRCL calculation 56 ml/min; Estimated Glomerular Filt Rate 43; Glucose 149 mg/dL (65-110); Potassium 4.3 mmol/L (3.4-5.0); Sodium 141 mmol/L (137-145)
[2025-11-12] MEDS: AZITHROMYCIN IV 500 MG in SODIUM CHLORIDE 0.9% IV 250 ML IVPB (17:00)
[2025-11-12] MEDS: FENTANYL 2,500MCG/NS250ML(*CRX 2,500 MCG/250 ML BAG 10 MCG IV CONT (18:40)
[2025-11-12] MEDS: MINERAL OIL/WHITE PETROLATUM OINTMENT 1 APPLIC EACH EYE (20:46)
[2025-11-12] MEDS: VANCOMYCIN 1,500 MG/NS 500 ML 1,500 MG/500 ML BAG 250 MG IVPB (21:16)
[2025-11-13] VITALS (35 sets, daily range): BP systolic 127–192; BP diastolic 51–78; PULSE 47–108; RESP 14–21; TEMP 36.9–37.6; O2SAT 93–99
[2025-11-13 05:01] LABS: Hematocrit 34.3 % (37.0-47.0); Hemoglobin 10.3 g/dL (12.0-15.0); Immature Granulocyte Percent A 1.3 % (0-0.5); Lymphocytes Absolute Auto 0.79 K/mm3 (0.9-3.2); Mean Corpuscular HGB Conc 30.0 g/dl (32-36); Mean Corpuscular Hemoglobin 28.5 pg (26-34); Mean Corpuscular Volume 94.8 fl (80-100); Nucleated Red Blood Cells Absolute Auto 0.000 K/mm3 (0.0-0.012); Nucleated Red Blood Cells Perc 0.0 % (0.0-0.2); Platelet Count Result 183 k/mm3 (150-375); Red Blood Count 3.62 M/mm3 (4.2-5.4); White Blood Count 8.7 K/mm3 (4.5-10.0)
[2025-11-13 05:14] LABS: INR 1.2; Prothrombin Time 15.1 Seconds (11.1-14.7)
[2025-11-13 05:15] LABS: Partial Thromboplastin Time 30.7 Seconds (22.3-36.8)
[2025-11-13 05:23] LABS: Alanine Aminotransferase 31 U/L (6-35); Albumin Level 3.3 g/dL (3.5-5.1); Alkaline Phosphatase 85 U/L (38-126); Anion Gap 6 mmol/L (4-12); Aspartate Amino Transferase 36 U/L (14-36); Bilirubin,Total 0.4 mg/dL (0.2-1.3); Blood Urea Nitrogen 56 mg/dL (7-17); Calcium 8.8 mg/dL (8.4-10.2); Carbon Dioxide 38 mmol/L (22-30); Chloride 96 mmol/L (98-107); Estimated CRCL calculation 59 ml/min; Estimated Glomerular Filt Rate 45; Glucose 145 mg/dL (65-110); Magnesium 1.9 mg/dL (1.6-2.3); Potassium 4.1 mmol/L (3.4-5.0); Sodium 140 mmol/L (137-145); Total Protein 6.4 g/dL (6.3-8.2)
[2025-11-13] MEDS: LEVOTHYROXINE SODIUM 112 MCG TABLET PO (05:34)
[2025-11-13] MEDS: CENTRAL LINE FLUSH 10 ML IV PUSH ×3 (05:34→20:55)
[2025-11-13] MEDS: LEVOTHYROXINE SODIUM 25 MCG TABLET PO (05:34)
[2025-11-13 05:42] LABS: Alveolar/Arterial O2 Gradient 99.3 mmHg; Carboxyhemoglobin 0.6 % THb (0-2.0); Fractional Inspired Oxygen 35 %; HCO3 ABG 37.6 mEq/l (22.0-26.0); Methemoglobin ABG 0.1 %THb (0-1.5); Oxygen Content ABG 16.2 %vol (16.0-22.0); Oxygen Saturation ABG 95.9 % (95.0-100.0); PCO2 ABG 59.2 mmHg (35.0-45.0); PO2 ABG 81.4 mmHg (80.0-100.0); PO2 FiO2 Ratio Arterial Blood 2.33 %; Reduced Hemoglobin 4.0 %THb (0-5.0)
[2025-11-13 05:43] LABS: Site Drawn RIGHT RADIAL
[2025-11-13 05:44] LABS: Arterial Blood Gas Tidal Volume 380 ml; Arterial Blood Gas Ventilator rate 16 /MIN
--- NOTE | 2025-11-13 09:38 | WPDINTPN2 ---
Assessment and Plan Assessment and Plan Plan 1. Neurologically: The patient is on 75 mcg of fentanyl awake and interactive. Denies pain 2. Cardiovascular: Blood pressure has increased as she is more awake dear heart rate has also been increased your most recent echocardiogram shows preserved systolic function. I do not see any antihypertensive medications at home. Will monitor and if necessary will start low doses off hydralazine 3. Respiratory: Chest x-ray looks better today, she is having some bronchospasms so will schedule DuoNebs every 6 hours. She is already getting steroids. Will check MRSA PCR, if negative will discontinue vancomycin. Attempt pressure support trials today 4. GI: Tolerating tube feedings and having bowel movement. Continue prophylaxis 5. and Renal: BUN has gone up but creatinine is down to 1.18. Electrolytes are balanced with metabolic alkalosis. She had excellent urine output with diuretics yesterday. 6. Endocrine: Blood sugars are overall mostly below 180. Continue present management. 7. DVT prophylaxis: On Lovenox 8. Hematologically: White blood cell count has normalized with relatively stable hemoglobin and platelet count. 9. Id: No new culture data. Check MRSA PCR and if negative discontinue vancomycin. Subjective Date/time seen: 11/13/25 09:39 Interval history: The patient is awake on 75 mics of fentanyl. She is following commands if she is having some ectopy today as well as moderate hypertension Exam Const: General: comfortable HENMT: Mouth: Yes dry mucous membranes Eyes: General: appearance normal, both eyes and all related structures Neck: Neck: no JVD Resp: Other: Coarse breath sounds bilaterally with minimal wheezing Cardio: Other: Irregular non tachycardic GI: GI Palp: Yes Soft to palpation Auscultation: normal bowel sounds Urinary Catheter: Urinary Catheter: patent and draining Skin: General skin exam: normal color Neuro: Other: Patient is awake and does follow commands. Weak and debilitated Extrem: General: edema Other: Dry skin, 2+ edema Objective Data Vital Signs Vital Signs: Vital Signs - 24 hr 11/12/25 10:00 11/12/25 10:00 11/12/25 10:00 Temperature 99.0 F Pulse Rate 74 66 69 Respiratory Rate 16 18 Blood Pressure 151/51 H Pulse Oximetry 96 Oxygen Delivery Fraction of Inspired Oxygen 11/12/25 11:00 11/12/25 11:00 11/12/25 11:20 Temperature 99 F 99.0 F Pulse Rate 63 69 70 Respiratory Rate 18 16 Blood Pressure 146/53 H 134/46 L Pulse Oximetry 97 96 96 Oxygen Delivery Mechanical Ventilation Fraction of Inspired Oxygen 50 11/12/25 12:00 11/12/25 12:00 11/12/25 12:00 Temperature 99.1 F Pulse Rate 70 65 Respiratory Rate 16 Blood Pressure 121/67 Pulse Oximetry 98 Oxygen Delivery Fraction of Inspired Oxygen 50 11/12/25 12:00 11/12/25 12:00 11/12/25 13:00 Temperature 99.1 F Pulse Rate 68 71 67 Respiratory Rate 18 18 17 Blood Pressure 142/56 H Pulse Oximetry 97 96 Oxygen Delivery Mechanical Ventilation Fraction of Inspired Oxygen 50 11/12/25 13:28 11/12/25 14:00 11/12/25 14:00 Temperature 99.1 F Pulse Rate 68 67 65 Respiratory Rate 16 Blood Pressure 137/63 Pulse Oximetry 96 98 Oxygen Delivery Mechanical Ventilation Fraction of Inspired Oxygen 45 11/12/25 14:00 11/12/25 15:00 11/12/25 16:00 Temperature 99.1 F 98.9 F Pulse Rate 67 53 L 64 Respiratory Rate 18 14 16 Blood Pressure 143/65 H 158/75 H Pulse Oximetry 97 96 Oxygen Delivery Fraction of Inspired Oxygen 11/12/25 16:00 11/12/25 16:00 11/12/25 16:00 Temperature Pulse Rate 71 78 Respiratory Rate 16 Blood Pressure Pulse Oximetry 96 Oxygen Delivery Mechanical Ventilation Fraction of Inspired Oxygen 50 50 11/12/25 17:00 11/12/25 18:00 11/12/25 18:00 Temperature 98.9 F 98.7 F Pulse Rate 68 69 72 Respiratory Rate 22 H 16 Blood Pressure 161/79 H 182/73 H Pulse Oximetry 96 94 Oxygen Delivery Fraction of Inspired Oxygen 11/12/25 18:03 11/12/25 18:38 11/12/25 18:40 Temperature Pulse Rate 69 78 78 Respiratory Rate 16 16 Blood Pressure Pulse Oximetry 96 Oxygen Delivery Mechanical Ventilation Fraction of Inspired Oxygen 35 11/12/25 19:00 11/12/25 20:00 11/12/25 20:00 Temperature 98.6 F 98.7 F Pulse Rate 65 65 65 Respiratory Rate 20 17 18 Blood Pressure 101/54 L 142/61 H Pulse Oximetry 95 95 Oxygen Delivery Fraction of Inspired Oxygen 11/12/25 20:00 11/12/25 20:00 11/12/25 20:00 Temperature Pulse Rate 61 Respiratory Rate Blood Pressure Pulse Oximetry 94 Oxygen Delivery Mechanical Ventilation Fraction of Inspired Oxygen 50 50 11/12/25 20:12 11/12/25 21:00 11/12/25 22:00 Temperature 98.7 F Pulse Rate 60 49 L 58 L Respiratory Rate 16 Blood Pressure 133/54 L Pulse Oximetry 96 94 Oxygen Delivery Mechanical Ventilation Fraction of Inspired Oxygen 35 11/12/25 22:00 11/12/25 22:00 11/12/25 22:55 Temperature 98.7 F Pulse Rate 58 L 58 L 47 L Respiratory Rate 16 16 16 Blood Pressure 133/74 Pulse Oximetry 96 Oxygen Delivery Fraction of Inspired Oxygen 11/12/25 23:00 11/12/25 23:10 11/13/25 00:00 Temperature 98.6 F Pulse Rate 66 60 Respiratory Rate 18 Blood Pressure 142/46 H Pulse Oximetry 95 96 95 Oxygen Delivery Mechanical Ventilation Mechanical Ventilation Fraction of Inspired Oxygen 35 50 11/13/25 00:00 11/13/25 00:00 11/13/25 00:00 Temperature 98.6 F Pulse Rate 58 L 58 L Respiratory Rate 18 16 Blood Pressure 138/63 Pulse Oximetry 95 Oxygen Delivery Fraction of Inspired Oxygen 50 11/13/25 00:00 11/13/25 01:00 11/13/25 02:00 Temperature 98.7 F Pulse Rate 49 L 48 L 47 L Respiratory Rate 16 Blood Pressure 135/51 L Pulse Oximetry 96 Oxygen Delivery Fraction of Inspired Oxygen 11/13/25 02:00 11/13/25 02:00 11/13/25 02:35 Temperature 98.7 F Pulse Rate 47 L 47 L 71 Respiratory Rate 18 18 Blood Pressure 147/57 H Pulse Oximetry 97 96 Oxygen Delivery Mechanical Ventilation Fraction of Inspired Oxygen 35 11/13/25 03:00 11/13/25 04:00 11/13/25 04:00 Temperature 98.7 F Pulse Rate 49 L 50 L Respiratory Rate 16 16 Blood Pressure 149/61 H Pulse Oximetry 96 97 Oxygen Delivery Mechanical Ventilation Fraction of Inspired Oxygen 50 11/13/25 04:00 11/13/25 04:00 11/13/25 04:00 Temperature 98.7 F Pulse Rate 50 L 62 Respiratory Rate 16 Blood Pressure 156/61 H Pulse Oximetry 97 Oxygen Delivery Fraction of Inspired Oxygen 50 11/13/25 05:00 11/13/25 05:44 11/13/25 06:00 Temperature 98.8 F Pulse Rate 68 76 67 Respiratory Rate 19 16 Blood Pressure 146/56 H Pulse Oximetry 97 94 Oxygen Delivery Mechanical Ventilation Fraction of Inspired Oxygen 35 11/13/25 06:00 11/13/25 06:00 11/13/25 07:00 Temperature 98.7 F 99.0 F Pulse Rate 67 67 66 Respiratory Rate 16 17 Blood Pressure 192/67 H 183/62 H Pulse Oximetry 94 95 Oxygen Delivery Fraction of Inspired Oxygen 11/13/25 08:26 Temperature Pulse Rate 65 Respiratory Rate Blood Pressure Pulse Oximetry 95 Oxygen Delivery Mechanical Ventilation Fraction of Inspired Oxygen 35 Intake/Output Intake/Output: Intake & Output 11/10/25 11/11/25 11/12/25 11/13/25 23:59 23:59 23:59 23:59 Intake Total 3963.3667 4114.7 2285.8 690.1 Output Total 1675 2900 4500 3400 Balance 2288.3667 1214.7 -2214.2 -2709.9 Meds/Results Medications: Active Medications Generic Name Dose Route Start Last Admin Trade Name Freq PRN Reason Stop Dose Admin Acetaminophen 650 mg 11/09/25 13:04 Acetaminophen 650 Mg Suppository RECTAL Q6H PRN Mild Pain (1-3) or Fever Acetaminophen 650 mg 11/09/25 15:06 11/11/25 01:38 Acetaminophen 325 Mg Tablet PO 650 mg Q6H PRN Administration Mild Pain (1-3) or Fever Albuterol/Ipratropium 3 ml 11/10/25 08:03 11/11/25 08:15 Ipratropium 0.5 Mg/Albuterol Sulfate 2.5 Mg (Base) Ampul.Neb 3 Ml INHALATION 3 ml Q6HRT PRN Administration Wheezing Aspirin 325 mg 11/12/25 08:00 11/12/25 09:00 Aspirin 325 Mg Tablet FEED TUBE 325 mg DAILY@0800 YFN Administration Atorvastatin Calcium 20 mg 11/10/25 09:00 11/12/25 09:53 Atorvastatin 20 Mg Tablet PO 20 mg DAILY YFN Administration Baricitinib 2 mg 11/10/25 11:00 11/12/25 10:36 Baricitinib 2 Mg Tablet PO 11/23/25 11:01 2 mg DAILY@1100 YFN Administration Dexamethasone Sodium Phosphate 6 mg 11/09/25 13:00 11/12/25 13:00 Dexamethasone Sod Phos Inj 10 Mg/Ml 1 Ml Vial IV PUSH 11/18/25 13:01 6 mg Q24H YFN Administration Enoxaparin Sodium 40 mg 11/09/25 15:00 11/12/25 09:54 Enoxaparin 40 Mg/0.4 Ml Syringe SUB-Q 40 mg DAILY YFN Administration Azithromycin 500 mg/ Sodium 250 mls @ 250 mls/hr 11/10/25 16:00 11/12/25 17:00 Chloride IVPB 11/13/25 16:59 250 mls/hr Q24H YFN Administration Remdesivir 100 mg in 250 mls @ 250 mls/hr 11/10/25 10:00 11/12/25 10:36 IVPB 11/13/25 10:59 250 mls/hr Q24H YFN Administration Cefepime HCl 2 gm/ Sodium 50 mls @ 100 mls/hr 11/10/25 09:00 11/12/25 21:14 Chloride IVPB Infused Q12H YFN Infusion Fentanyl Citrate 2,500 mcg in 250 mls @ 7.5 mls/hr 11/10/25 13:05 11/13/25 06:00 Fentanyl 2,500 Mcg/Ns 250 Ml IV CONT 75 mcg/hr .[id number] YFN 7.5 mls/hr Protocol Titration 75 MCG/HR Vancomycin HCl 1,500 mg in 500 mls @ 250 mls/hr 11/12/25 22:00 11/12/25 23:16 Vancomycin 1,500 Mg/Ns 500 Ml IVPB Infused Q24H YFN Infusion Levothyroxine Sodium 112 mcg 11/10/25 06:30 11/13/25 05:34 Levothyroxine Sodium 112 Mcg Tablet PO 112 mcg DAILY@0630 YFN Administration Levothyroxine Sodium 25 mcg 11/10/25 06:30 11/13/25 05:34 Levothyroxine Sodium 25 Mcg Tablet PO 25 mcg DAILY@0630 YFN Administration Multi-Ingred Cream/Lotion/Oil/Oint 1 applic 11/09/25 21:00 11/12/25 20:46 Mineral Oil/White Petrolatum Ointment EACH EYE 1 applic Q12HR YFN Administration Ondansetron HCl 4 mg 11/09/25 13:04 Ondansetron Inj 4 Mg/2 Ml Vial IV PUSH Q4H PRN Nausea Pantoprazole Sodium 40 mg 11/10/25 09:00 11/12/25 09:54 Pantoprazole Sodium Iv 40 Mg Vial IV PUSH 40 mg QAM YFN Administration Sodium Chloride 10 ml 11/12/25 14:00 11/13/25 05:34 Central Line Flush IV PUSH 10 ml Q8HR YFN Administration Sodium Chloride 10 ml 11/12/25 09:17 Central Line Flush IV PUSH PRN PRN with TPN bag changes Sodium Chloride 20 ml 11/12/25 09:17 Central Line Flush IV PUSH PRN PRN after blood draws Radiology Results: ITS Impressions Abdomen X-Ray 11/09/25 13:22 Impression: 1. No acute abnormality. Chest/Abdomen/Pelvis CT 11/10/25 14:11 IMPRESSION: 1. Satisfactory position of endotracheal tube and nasogastric tube. 2. Perihilar vascular congestion of both lungs. Platelike atelectasis of mid left lung. Partial atelectasis of lung bases on both sides. Minimal bilateral pleural effusion. 3. Distended gallbladder containing calcified gallstone. Atrophic kidneys. Chest X-Ray 11/13/25 08:28 IMPRESSION: 1. No significant change in scattered patchy bilateral airspace disease. Labs Labs: Laboratory Results - last 24 hr 11/12/25 11/12/25 11/12/25 11:28 15:31 17:52 WBC RBC Hgb Hct MCV MCH MCHC RDW Plt Count MPV Immature Gran % (Auto) Neut % (Auto) Lymph % (Auto) [place] % (Auto) Eos % (Auto) Baso % (Auto) Lymph # (Auto) [place] # (Auto) Eos # (Auto) Baso # (Auto) Abs Immat Gran (auto) Absolute Neuts (auto) Absolute Nucleated RBC Nucleated RBC % PT INR APTT Puncture Site ABG pH ABG pCO2 ABG pO2 ABG PO2/FiO2 Ratio ABG HCO3 ABG O2 Saturation ABG O2 Content ABG Base Excess A-a Gradient Oxyhemoglobin Carboxyhemoglobin Methemoglobin Reduced Hemoglobin Total Hemoglobin O2 Delivery Device O2 Liters/Min Minute Volume Vent Rate Vent Mode FiO2 Tidal Volume PEEP Peak Inspir Pressure Pressure Support Sodium 141 Potassium 4.3 Chloride 97 L Carbon Dioxide 39 H Anion Gap 5 BUN 47 H Creatinine 1.24 H Estim Creat Clear Calc 56 Estimated GFR 43 L Glucose 149 H POC Capillary Glucose 121 H 164 H Calcium 8.8 Phosphorus Magnesium Total Bilirubin AST ALT Alkaline Phosphatase Total Protein Albumin Vancomycin Trough 21.4 H 11/12/25 11/13/25 11/13/25 23:23 04:56 05:31 WBC 8.7 RBC 3.62 L Hgb 10.3 L Hct 34.3 L MCV 94.8 MCH 28.5 MCHC 30.0 L RDW 14.9 H Plt Count 183 MPV 10.2 Immature Gran % (Auto) 1.3 H Neut % (Auto) 81.0 H Lymph % (Auto) 9.0 L [place] % (Auto) 8.1 Eos % (Auto) 0.5 Baso % (Auto) 0.1 L Lymph # (Auto) 0.79 L [place] # (Auto) 0.7 H Eos # (Auto) 0.0 Baso # (Auto) 0.0 Abs Immat Gran (auto) 0.11 H Absolute Neuts (auto) 7.1 H Absolute Nucleated RBC 0.000 Nucleated RBC % 0.0 PT 15.1 H INR 1.2 APTT 30.7 Puncture Site Right radial ABG pH 7.421 ABG pCO2 59.2 H ABG pO2 81.4 ABG PO2/FiO2 Ratio 2.33 ABG HCO3 37.6 H ABG O2 Saturation 95.9 ABG O2 Content 16.2 ABG Base Excess 11.1 A-a Gradient 99.3 Oxyhemoglobin 95.3 Carboxyhemoglobin 0.6 Methemoglobin 0.1 Reduced Hemoglobin 4.0 Total Hemoglobin 12.0 O2 Delivery Device Ventilator O2 Liters/Min Not Reportable Minute Volume Not Reportable Vent Rate 16 Vent Mode Cmv FiO2 35 Tidal Volume 380 PEEP 8 Peak Inspir Pressure Not Reportable Pressure Support Not Reportable Sodium 140 Potassium 4.1 Chloride 96 L Carbon Dioxide 38 H Anion Gap 6 BUN 56 H Creatinine 1.18 H Estim Creat Clear Calc 59 Estimated GFR 45 L Glucose 145 H POC Capillary Glucose 178 H Calcium 8.8 Phosphorus 3.6 Magnesium 1.9 Total Bilirubin 0.4 AST 36 ALT 31 Alkaline Phosphatase 85 Total Protein 6.4 Albumin 3.3 L Vancomycin Trough Ventilation Ventilation Ventilation Comments: Peep of 8 will be changed to 6 Critical Care Time Critical Care Time Critical Care Time: Yes Indication: Multiorgan system failure Time Type: Continuous Initial evaluation, discuss w/ involved parties, attempting to gather old records: 15 minutes Documenting medical record: 10 minutes Review of results (EKG's, labs, imaging): 10 minutes Serial repeat bedside evaluation: N/A Discussing case with multiple memebers of the care team and consultants: 10 minutes Total Critical Care Time: 45 Critical Care Time Overview: 45 minutes total critical care time
[2025-11-13] MEDS: PANTOPRAZOLE SODIUM IV 40 MG VIAL IV PUSH (10:08)
[2025-11-13] MEDS: MINERAL OIL/WHITE PETROLATUM OINTMENT 1 APPLIC EACH EYE ×2 (10:08→20:57)
[2025-11-13] MEDS: BARICITINIB 2 MG TABLET PO (10:08)
[2025-11-13] MEDS: ASPIRIN 325 MG TABLET FEED TUBE (10:08)
[2025-11-13] MEDS: REMDESIVIR 100 MG/NS 250 ML 100 MG/250 ML BAG 250 MG IVPB (10:09)
[2025-11-13] MEDS: ENOXAPARIN 40 MG/0.4 ML SYRINGE SUB-Q (10:09)
[2025-11-13] MEDS: ATORVASTATIN 20 MG TABLET PO (10:09)
[2025-11-13] MEDS: CEFEPIME 2 GM in SODIUM CHLORIDE 0.9% IV 50 ML 100 ML IVPB ×2 (10:09→20:54)
--- NOTE | 2025-11-13 10:40 | WPDINTPN2 ---
Assessment and Plan Assessment and Plan (1) Pneumonia due to COVID-19 virus: Code(s): U07.1 - COVID-19; J12.82 - Pneumonia due to coronavirus disease 2019 Status: Acute (2) Acute hypercapnic respiratory failure: Code(s): J96.02 - Acute respiratory failure with hypercapnia Status: Acute (3) Sepsis: Code(s): A41.9 - Sepsis, unspecified organism Status: Acute (4) CHF exacerbation: Code(s): I50.9 - Heart failure, unspecified Status: Acute (5) Acute hypercapnic respiratory failure: Code(s): J96.02 - Acute respiratory failure with hypercapnia Status: Acute (6) Pneumonia: Code(s): J18.9 - Pneumonia, unspecified organism Status: Acute Plan 1. Neurologically: The patient is on 75 mcg of fentanyl awake and interactive. Denies pain 2. Cardiovascular: Blood pressure has increased as she is more awake dear heart rate has also been increased your most recent echocardiogram shows preserved systolic function. I do not see any antihypertensive medications at home. Will monitor and if necessary will start low doses off hydralazine 3. Respiratory: Chest x-ray looks better today, she is having some bronchospasms so will schedule DuoNebs every 6 hours. She is already getting steroids. Will check MRSA PCR, if negative will discontinue vancomycin. Attempt pressure support trials today 4. GI: Tolerating tube feedings and having bowel movement. Continue prophylaxis 5. and Renal: BUN has gone up but creatinine is down to 1.18. Electrolytes are balanced with metabolic alkalosis. She had excellent urine output with diuretics yesterday. 6. Endocrine: Blood sugars are overall mostly below 180. Continue present management. 7. DVT prophylaxis: On Lovenox 8. Hematologically: White blood cell count has normalized with relatively stable hemoglobin and platelet count. 9. Id: No new culture data. Check MRSA PCR and if negative discontinue vancomycin. Subjective Date/time seen: 11/13/25 10:40 Interval history: The patient is awake on 75 mics of fentanyl. She is following commands if she is having some ectopy today as well as moderate hypertension Exam Const: General: comfortable HENMT: Mouth: Yes dry mucous membranes Eyes: General: appearance normal, both eyes and all related structures Neck: Neck: no JVD Resp: Other: Coarse breath sounds bilaterally with minimal wheezing Cardio: Other: Irregular non tachycardic GI: GI Palp: Yes Soft to palpation Auscultation: normal bowel sounds Urinary Catheter: Urinary Catheter: patent and draining Skin: General skin exam: normal color Neuro: Other: Patient is awake and does follow commands. Weak and debilitated Extrem: General: edema Other: Dry skin, 2+ edema Objective Data Vital Signs Vital Signs: Vital Signs - 24 hr 11/12/25 11:00 11/12/25 11:00 11/12/25 11:20 Temperature 99 F 99.0 F Pulse Rate 63 69 70 Respiratory Rate 18 16 Blood Pressure 146/53 H 134/46 L Pulse Oximetry 97 96 96 Oxygen Delivery Mechanical Ventilation Fraction of Inspired Oxygen 50 11/12/25 12:00 11/12/25 12:00 11/12/25 12:00 Temperature 99.1 F Pulse Rate 70 65 Respiratory Rate 16 Blood Pressure 121/67 Pulse Oximetry 98 Oxygen Delivery Fraction of Inspired Oxygen 50 11/12/25 12:00 11/12/25 12:00 11/12/25 13:00 Temperature 99.1 F Pulse Rate 68 71 67 Respiratory Rate 18 18 17 Blood Pressure 142/56 H Pulse Oximetry 97 96 Oxygen Delivery Mechanical Ventilation Fraction of Inspired Oxygen 50 11/12/25 13:28 11/12/25 14:00 11/12/25 14:00 Temperature 99.1 F Pulse Rate 68 67 65 Respiratory Rate 16 Blood Pressure 137/63 Pulse Oximetry 96 98 Oxygen Delivery Mechanical Ventilation Fraction of Inspired Oxygen 45 11/12/25 14:00 11/12/25 15:00 11/12/25 16:00 Temperature 99.1 F 98.9 F Pulse Rate 67 53 L 64 Respiratory Rate 18 14 16 Blood Pressure 143/65 H 158/75 H Pulse Oximetry 97 96 Oxygen Delivery Fraction of Inspired Oxygen 11/12/25 16:00 11/12/25 16:00 11/12/25 16:00 Temperature Pulse Rate 71 78 Respiratory Rate 16 Blood Pressure Pulse Oximetry 96 Oxygen Delivery Mechanical Ventilation Fraction of Inspired Oxygen 50 50 11/12/25 17:00 11/12/25 18:00 11/12/25 18:00 Temperature 98.9 F 98.7 F Pulse Rate 68 69 72 Respiratory Rate 22 H 16 Blood Pressure 161/79 H 182/73 H Pulse Oximetry 96 94 Oxygen Delivery Fraction of Inspired Oxygen 11/12/25 18:03 11/12/25 18:38 11/12/25 18:40 Temperature Pulse Rate 69 78 78 Respiratory Rate 16 16 Blood Pressure Pulse Oximetry 96 Oxygen Delivery Mechanical Ventilation Fraction of Inspired Oxygen 35 11/12/25 19:00 11/12/25 20:00 11/12/25 20:00 Temperature 98.6 F 98.7 F Pulse Rate 65 65 65 Respiratory Rate 20 17 18 Blood Pressure 101/54 L 142/61 H Pulse Oximetry 95 95 Oxygen Delivery Fraction of Inspired Oxygen 11/12/25 20:00 11/12/25 20:00 11/12/25 20:00 Temperature Pulse Rate 61 Respiratory Rate Blood Pressure Pulse Oximetry 94 Oxygen Delivery Mechanical Ventilation Fraction of Inspired Oxygen 50 50 11/12/25 20:12 11/12/25 21:00 11/12/25 22:00 Temperature 98.7 F Pulse Rate 60 49 L 58 L Respiratory Rate 16 Blood Pressure 133/54 L Pulse Oximetry 96 94 Oxygen Delivery Mechanical Ventilation Fraction of Inspired Oxygen 35 11/12/25 22:00 11/12/25 22:00 11/12/25 22:55 Temperature 98.7 F Pulse Rate 58 L 58 L 47 L Respiratory Rate 16 16 16 Blood Pressure 133/74 Pulse Oximetry 96 Oxygen Delivery Fraction of Inspired Oxygen 11/12/25 23:00 11/12/25 23:10 11/13/25 00:00 Temperature 98.6 F Pulse Rate 66 60 Respiratory Rate 18 Blood Pressure 142/46 H Pulse Oximetry 95 96 95 Oxygen Delivery Mechanical Ventilation Mechanical Ventilation Fraction of Inspired Oxygen 35 50 11/13/25 00:00 11/13/25 00:00 11/13/25 00:00 Temperature 98.6 F Pulse Rate 58 L 58 L Respiratory Rate 18 16 Blood Pressure 138/63 Pulse Oximetry 95 Oxygen Delivery Fraction of Inspired Oxygen 50 11/13/25 00:00 11/13/25 01:00 11/13/25 02:00 Temperature 98.7 F Pulse Rate 49 L 48 L 47 L Respiratory Rate 16 Blood Pressure 135/51 L Pulse Oximetry 96 Oxygen Delivery Fraction of Inspired Oxygen 11/13/25 02:00 11/13/25 02:00 11/13/25 02:35 Temperature 98.7 F Pulse Rate 47 L 47 L 71 Respiratory Rate 18 18 Blood Pressure 147/57 H Pulse Oximetry 97 96 Oxygen Delivery Mechanical Ventilation Fraction of Inspired Oxygen 35 11/13/25 03:00 11/13/25 04:00 11/13/25 04:00 Temperature 98.7 F Pulse Rate 49 L 50 L Respiratory Rate 16 16 Blood Pressure 149/61 H Pulse Oximetry 96 97 Oxygen Delivery Mechanical Ventilation Fraction of Inspired Oxygen 50 11/13/25 04:00 11/13/25 04:00 11/13/25 04:00 Temperature 98.7 F Pulse Rate 50 L 62 Respiratory Rate 16 Blood Pressure 156/61 H Pulse Oximetry 97 Oxygen Delivery Fraction of Inspired Oxygen 50 11/13/25 05:00 11/13/25 05:44 11/13/25 06:00 Temperature 98.8 F Pulse Rate 68 76 67 Respiratory Rate 19 16 Blood Pressure 146/56 H Pulse Oximetry 97 94 Oxygen Delivery Mechanical Ventilation Fraction of Inspired Oxygen 35 11/13/25 06:00 11/13/25 06:00 11/13/25 07:00 Temperature 98.7 F 99.0 F Pulse Rate 67 67 66 Respiratory Rate 16 17 Blood Pressure 192/67 H 183/62 H Pulse Oximetry 94 95 Oxygen Delivery Fraction of Inspired Oxygen 11/13/25 08:26 Temperature Pulse Rate 65 Respiratory Rate Blood Pressure Pulse Oximetry 95 Oxygen Delivery Mechanical Ventilation Fraction of Inspired Oxygen 35 Intake/Output Intake/Output: Intake & Output 11/10/25 11/11/25 11/12/25 11/13/25 23:59 23:59 23:59 23:59 Intake Total 3963.3667 4114.7 2785.8 690.1 Output Total 1675 2900 4500 3400 Balance 2288.3667 1214.7 -1714.2 -2709.9 Meds/Results Medications: Active Medications Generic Name Dose Route Start Last Admin Trade Name Freq PRN Reason Stop Dose Admin Acetaminophen 650 mg 11/09/25 13:04 Acetaminophen 650 Mg Suppository RECTAL Q6H PRN Mild Pain (1-3) or Fever Acetaminophen 650 mg 11/09/25 15:06 11/11/25 01:38 Acetaminophen 325 Mg Tablet PO 650 mg Q6H PRN Administration Mild Pain (1-3) or Fever Albuterol/Ipratropium 3 ml 11/10/25 08:03 11/11/25 08:15 Ipratropium 0.5 Mg/Albuterol Sulfate 2.5 Mg (Base) Ampul.Neb 3 Ml INHALATION 3 ml Q6HRT PRN Administration Wheezing Albuterol/Ipratropium 3 ml 11/13/25 14:00 Ipratropium 0.5 Mg/Albuterol Sulfate 2.5 Mg (Base) Ampul.Neb 3 Ml INHALATION Q6HRT YFN Aspirin 325 mg 11/12/25 08:00 11/13/25 10:08 Aspirin 325 Mg Tablet FEED TUBE 325 mg DAILY@0800 YFN Administration Atorvastatin Calcium 20 mg 11/10/25 09:00 11/13/25 10:09 Atorvastatin 20 Mg Tablet PO 20 mg DAILY YFN Administration Baricitinib 2 mg 11/10/25 11:00 11/13/25 10:08 Baricitinib 2 Mg Tablet PO 11/23/25 11:01 2 mg DAILY@1100 YFN Administration Dexamethasone Sodium Phosphate 6 mg 11/09/25 13:00 11/12/25 13:00 Dexamethasone Sod Phos Inj 10 Mg/Ml 1 Ml Vial IV PUSH 11/18/25 13:01 6 mg Q24H YFN Administration Enoxaparin Sodium 40 mg 11/09/25 15:00 11/13/25 10:09 Enoxaparin 40 Mg/0.4 Ml Syringe SUB-Q 40 mg DAILY YFN Administration Hydralazine HCl 5 mg 11/13/25 13:00 Hydralazine 5 Mg Tablet PO QID YFN Azithromycin 500 mg/ Sodium 250 mls @ 250 mls/hr 11/10/25 16:00 11/12/25 18:00 Chloride IVPB 11/13/25 16:59 Infused Q24H YFN Infusion Remdesivir 100 mg in 250 mls @ 250 mls/hr 11/10/25 10:00 11/13/25 10:09 IVPB 11/13/25 10:59 250 mls/hr Q24H YFN Administration Cefepime HCl 2 gm/ Sodium 50 mls @ 100 mls/hr 11/10/25 09:00 11/13/25 10:09 Chloride IVPB 100 mls/hr Q12H YFN Administration Fentanyl Citrate 2,500 mcg in 250 mls @ 7.5 mls/hr 11/10/25 13:05 11/13/25 06:00 Fentanyl 2,500 Mcg/Ns 250 Ml IV CONT 75 mcg/hr .[id number] YFN 7.5 mls/hr Protocol Titration 75 MCG/HR Vancomycin HCl 1,500 mg in 500 mls @ 250 mls/hr 11/12/25 22:00 11/12/25 23:16 Vancomycin 1,500 Mg/Ns 500 Ml IVPB Infused Q24H YFN Infusion Levothyroxine Sodium 112 mcg 11/10/25 06:30 11/13/25 05:34 Levothyroxine Sodium 112 Mcg Tablet PO 112 mcg DAILY@0630 YFN Administration Levothyroxine Sodium 25 mcg 11/10/25 06:30 11/13/25 05:34 Levothyroxine Sodium 25 Mcg Tablet PO 25 mcg DAILY@0630 YFN Administration Multi-Ingred Cream/Lotion/Oil/Oint 1 applic 11/09/25 21:00 11/13/25 10:08 Mineral Oil/White Petrolatum Ointment EACH EYE 1 applic Q12HR YFN Administration Ondansetron HCl 4 mg 11/09/25 13:04 Ondansetron Inj 4 Mg/2 Ml Vial IV PUSH Q4H PRN Nausea Pantoprazole Sodium 40 mg 11/10/25 09:00 11/13/25 10:08 Pantoprazole Sodium Iv 40 Mg Vial IV PUSH 40 mg QAM YFN Administration Sodium Chloride 10 ml 11/12/25 14:00 11/13/25 05:34 Central Line Flush IV PUSH 10 ml Q8HR YFN Administration Sodium Chloride 10 ml 11/12/25 09:17 Central Line Flush IV PUSH PRN PRN with TPN bag changes Sodium Chloride 20 ml 11/12/25 09:17 Central Line Flush IV PUSH PRN PRN after blood draws Radiology Results: ITS Impressions Abdomen X-Ray 11/09/25 13:22 Impression: 1. No acute abnormality. Chest/Abdomen/Pelvis CT 11/10/25 14:11 IMPRESSION: 1. Satisfactory position of endotracheal tube and nasogastric tube. 2. Perihilar vascular congestion of both lungs. Platelike atelectasis of mid left lung. Partial atelectasis of lung bases on both sides. Minimal bilateral pleural effusion. 3. Distended gallbladder containing calcified gallstone. Atrophic kidneys. Chest X-Ray 11/13/25 08:28 IMPRESSION: 1. No significant change in scattered patchy bilateral airspace disease. Labs Labs: Laboratory Results - last 24 hr 11/12/25 11/12/25 11/12/25 11:28 15:31 17:52 WBC RBC Hgb Hct MCV MCH MCHC RDW Plt Count MPV Immature Gran % (Auto) Neut % (Auto) Lymph % (Auto) [place] % (Auto) Eos % (Auto) Baso % (Auto) Lymph # (Auto) [place] # (Auto) Eos # (Auto) Baso # (Auto) Abs Immat Gran (auto) Absolute Neuts (auto) Absolute Nucleated RBC Nucleated RBC % PT INR APTT Puncture Site ABG pH ABG pCO2 ABG pO2 ABG PO2/FiO2 Ratio ABG HCO3 ABG O2 Saturation ABG O2 Content ABG Base Excess A-a Gradient Oxyhemoglobin Carboxyhemoglobin Methemoglobin Reduced Hemoglobin Total Hemoglobin O2 Delivery Device O2 Liters/Min Minute Volume Vent Rate Vent Mode FiO2 Tidal Volume PEEP Peak Inspir Pressure Pressure Support Sodium 141 Potassium 4.3 Chloride 97 L Carbon Dioxide 39 H Anion Gap 5 BUN 47 H Creatinine 1.24 H Estim Creat Clear Calc 56 Estimated GFR 43 L Glucose 149 H POC Capillary Glucose 121 H 164 H Calcium 8.8 Phosphorus Magnesium Total Bilirubin AST ALT Alkaline Phosphatase Total Protein Albumin Vancomycin Trough 21.4 H 11/12/25 11/13/25 11/13/25 23:23 04:56 05:31 WBC 8.7 RBC 3.62 L Hgb 10.3 L Hct 34.3 L MCV 94.8 MCH 28.5 MCHC 30.0 L RDW 14.9 H Plt Count 183 MPV 10.2 Immature Gran % (Auto) 1.3 H Neut % (Auto) 81.0 H Lymph % (Auto) 9.0 L [place] % (Auto) 8.1 Eos % (Auto) 0.5 Baso % (Auto) 0.1 L Lymph # (Auto) 0.79 L [place] # (Auto) 0.7 H Eos # (Auto) 0.0 Baso # (Auto) 0.0 Abs Immat Gran (auto) 0.11 H Absolute Neuts (auto) 7.1 H Absolute Nucleated RBC 0.000 Nucleated RBC % 0.0 PT 15.1 H INR 1.2 APTT 30.7 Puncture Site Right radial ABG pH 7.421 ABG pCO2 59.2 H ABG pO2 81.4 ABG PO2/FiO2 Ratio 2.33 ABG HCO3 37.6 H ABG O2 Saturation 95.9 ABG O2 Content 16.2 ABG Base Excess 11.1 A-a Gradient 99.3 Oxyhemoglobin 95.3 Carboxyhemoglobin 0.6 Methemoglobin 0.1 Reduced Hemoglobin 4.0 Total Hemoglobin 12.0 O2 Delivery Device Ventilator O2 Liters/Min Not Reportable Minute Volume Not Reportable Vent Rate 16 Vent Mode Cmv FiO2 35 Tidal Volume 380 PEEP 8 Peak Inspir Pressure Not Reportable Pressure Support Not Reportable Sodium 140 Potassium 4.1 Chloride 96 L Carbon Dioxide 38 H Anion Gap 6 BUN 56 H Creatinine 1.18 H Estim Creat Clear Calc 59 Estimated GFR 45 L Glucose 145 H POC Capillary Glucose 178 H Calcium 8.8 Phosphorus 3.6 Magnesium 1.9 Total Bilirubin 0.4 AST 36 ALT 31 Alkaline Phosphatase 85 Total Protein 6.4 Albumin 3.3 L Vancomycin Trough Ventilation Ventilation Ventilation Comments: Peep of 8 will be changed to 6 Critical Care Time Critical Care Time Critical Care Time: Yes Initial evaluation, discuss w/ involved parties, attempting to gather old records: N/A Documenting medical record: 10 minutes Review of results (EKG's, labs, imaging): 10 minutes Serial repeat bedside evaluation: 10 minutes Discussing case with multiple memebers of the care team and consultants: 10 minutes Total Critical Care Time: 40 Critical Care Time Overview: 45 minutes total critical care time
--- NOTE | 2025-11-13 10:45 | WPDINTPN2 ---
Subjective Date/time seen: 11/13/25 10:45 Objective Data Vital Signs Vital Signs: Vital Signs - 24 hr 11/12/25 11:00 11/12/25 11:00 11/12/25 11:20 Temperature 99 F 99.0 F Pulse Rate 63 69 70 Respiratory Rate 18 16 Blood Pressure 146/53 H 134/46 L Pulse Oximetry 97 96 96 Oxygen Delivery Mechanical Ventilation Fraction of Inspired Oxygen 50 11/12/25 12:00 11/12/25 12:00 11/12/25 12:00 Temperature 99.1 F Pulse Rate 70 65 Respiratory Rate 16 Blood Pressure 121/67 Pulse Oximetry 98 Oxygen Delivery Fraction of Inspired Oxygen 50 11/12/25 12:00 11/12/25 12:00 11/12/25 13:00 Temperature 99.1 F Pulse Rate 68 71 67 Respiratory Rate 18 18 17 Blood Pressure 142/56 H Pulse Oximetry 97 96 Oxygen Delivery Mechanical Ventilation Fraction of Inspired Oxygen 50 11/12/25 13:28 11/12/25 14:00 11/12/25 14:00 Temperature 99.1 F Pulse Rate 68 67 65 Respiratory Rate 16 Blood Pressure 137/63 Pulse Oximetry 96 98 Oxygen Delivery Mechanical Ventilation Fraction of Inspired Oxygen 45 11/12/25 14:00 11/12/25 15:00 11/12/25 16:00 Temperature 99.1 F 98.9 F Pulse Rate 67 53 L 64 Respiratory Rate 18 14 16 Blood Pressure 143/65 H 158/75 H Pulse Oximetry 97 96 Oxygen Delivery Fraction of Inspired Oxygen 11/12/25 16:00 11/12/25 16:00 11/12/25 16:00 Temperature Pulse Rate 71 78 Respiratory Rate 16 Blood Pressure Pulse Oximetry 96 Oxygen Delivery Mechanical Ventilation Fraction of Inspired Oxygen 50 50 11/12/25 17:00 11/12/25 18:00 11/12/25 18:00 Temperature 98.9 F 98.7 F Pulse Rate 68 69 72 Respiratory Rate 22 H 16 Blood Pressure 161/79 H 182/73 H Pulse Oximetry 96 94 Oxygen Delivery Fraction of Inspired Oxygen 11/12/25 18:03 11/12/25 18:38 11/12/25 18:40 Temperature Pulse Rate 69 78 78 Respiratory Rate 16 16 Blood Pressure Pulse Oximetry 96 Oxygen Delivery Mechanical Ventilation Fraction of Inspired Oxygen 35 11/12/25 19:00 11/12/25 20:00 11/12/25 20:00 Temperature 98.6 F 98.7 F Pulse Rate 65 65 65 Respiratory Rate 20 17 18 Blood Pressure 101/54 L 142/61 H Pulse Oximetry 95 95 Oxygen Delivery Fraction of Inspired Oxygen 11/12/25 20:00 11/12/25 20:00 11/12/25 20:00 Temperature Pulse Rate 61 Respiratory Rate Blood Pressure Pulse Oximetry 94 Oxygen Delivery Mechanical Ventilation Fraction of Inspired Oxygen 50 50 11/12/25 20:12 11/12/25 21:00 11/12/25 22:00 Temperature 98.7 F Pulse Rate 60 49 L 58 L Respiratory Rate 16 Blood Pressure 133/54 L Pulse Oximetry 96 94 Oxygen Delivery Mechanical Ventilation Fraction of Inspired Oxygen 35 11/12/25 22:00 11/12/25 22:00 11/12/25 22:55 Temperature 98.7 F Pulse Rate 58 L 58 L 47 L Respiratory Rate 16 16 16 Blood Pressure 133/74 Pulse Oximetry 96 Oxygen Delivery Fraction of Inspired Oxygen 11/12/25 23:00 11/12/25 23:10 11/13/25 00:00 Temperature 98.6 F Pulse Rate 66 60 Respiratory Rate 18 Blood Pressure 142/46 H Pulse Oximetry 95 96 95 Oxygen Delivery Mechanical Ventilation Mechanical Ventilation Fraction of Inspired Oxygen 35 50 11/13/25 00:00 11/13/25 00:00 11/13/25 00:00 Temperature 98.6 F Pulse Rate 58 L 58 L Respiratory Rate 18 16 Blood Pressure 138/63 Pulse Oximetry 95 Oxygen Delivery Fraction of Inspired Oxygen 50 11/13/25 00:00 11/13/25 01:00 11/13/25 02:00 Temperature 98.7 F Pulse Rate 49 L 48 L 47 L Respiratory Rate 16 Blood Pressure 135/51 L Pulse Oximetry 96 Oxygen Delivery Fraction of Inspired Oxygen 11/13/25 02:00 11/13/25 02:00 11/13/25 02:35 Temperature 98.7 F Pulse Rate 47 L 47 L 71 Respiratory Rate 18 18 Blood Pressure 147/57 H Pulse Oximetry 97 96 Oxygen Delivery Mechanical Ventilation Fraction of Inspired Oxygen 35 11/13/25 03:00 11/13/25 04:00 11/13/25 04:00 Temperature 98.7 F Pulse Rate 49 L 50 L Respiratory Rate 16 16 Blood Pressure 149/61 H Pulse Oximetry 96 97 Oxygen Delivery Mechanical Ventilation Fraction of Inspired Oxygen 50 11/13/25 04:00 11/13/25 04:00 11/13/25 04:00 Temperature 98.7 F Pulse Rate 50 L 62 Respiratory Rate 16 Blood Pressure 156/61 H Pulse Oximetry 97 Oxygen Delivery Fraction of Inspired Oxygen 50 11/13/25 05:00 11/13/25 05:44 11/13/25 06:00 Temperature 98.8 F Pulse Rate 68 76 67 Respiratory Rate 19 16 Blood Pressure 146/56 H Pulse Oximetry 97 94 Oxygen Delivery Mechanical Ventilation Fraction of Inspired Oxygen 35 11/13/25 06:00 11/13/25 06:00 11/13/25 07:00 Temperature 98.7 F 99.0 F Pulse Rate 67 67 66 Respiratory Rate 16 17 Blood Pressure 192/67 H 183/62 H Pulse Oximetry 94 95 Oxygen Delivery Fraction of Inspired Oxygen 11/13/25 08:26 Temperature Pulse Rate 65 Respiratory Rate Blood Pressure Pulse Oximetry 95 Oxygen Delivery Mechanical Ventilation Fraction of Inspired Oxygen 35 Intake/Output Intake/Output: Intake & Output 11/10/25 11/11/25 11/12/25 11/13/25 23:59 23:59 23:59 23:59 Intake Total 3963.3667 4114.7 2785.8 690.1 Output Total 1675 2900 4500 3400 Balance 2288.3667 1214.7 -1714.2 -2709.9 Meds/Results Medications: Active Medications Generic Name Dose Route Start Last Admin Trade Name Freq PRN Reason Stop Dose Admin Acetaminophen 650 mg 11/09/25 13:04 Acetaminophen 650 Mg Suppository RECTAL Q6H PRN Mild Pain (1-3) or Fever Acetaminophen 650 mg 11/09/25 15:06 11/11/25 01:38 Acetaminophen 325 Mg Tablet PO 650 mg Q6H PRN Administration Mild Pain (1-3) or Fever Albuterol/Ipratropium 3 ml 11/10/25 08:03 11/11/25 08:15 Ipratropium 0.5 Mg/Albuterol Sulfate 2.5 Mg (Base) Ampul.Neb 3 Ml INHALATION 3 ml Q6HRT PRN Administration Wheezing Albuterol/Ipratropium 3 ml 11/13/25 14:00 Ipratropium 0.5 Mg/Albuterol Sulfate 2.5 Mg (Base) Ampul.Neb 3 Ml INHALATION Q6HRT YFN Aspirin 325 mg 11/12/25 08:00 11/13/25 10:08 Aspirin 325 Mg Tablet FEED TUBE 325 mg DAILY@0800 YFN Administration Atorvastatin Calcium 20 mg 11/10/25 09:00 11/13/25 10:09 Atorvastatin 20 Mg Tablet PO 20 mg DAILY YFN Administration Baricitinib 2 mg 11/10/25 11:00 11/13/25 10:08 Baricitinib 2 Mg Tablet PO 11/23/25 11:01 2 mg DAILY@1100 YFN Administration Dexamethasone Sodium Phosphate 6 mg 11/09/25 13:00 11/12/25 13:00 Dexamethasone Sod Phos Inj 10 Mg/Ml 1 Ml Vial IV PUSH 11/18/25 13:01 6 mg Q24H YFN Administration Enoxaparin Sodium 40 mg 11/09/25 15:00 11/13/25 10:09 Enoxaparin 40 Mg/0.4 Ml Syringe SUB-Q 40 mg DAILY YFN Administration Hydralazine HCl 5 mg 11/13/25 13:00 Hydralazine 5 Mg Tablet PO QID YFN Azithromycin 500 mg/ Sodium 250 mls @ 250 mls/hr 11/10/25 16:00 11/12/25 18:00 Chloride IVPB 11/13/25 16:59 Infused Q24H YFN Infusion Remdesivir 100 mg in 250 mls @ 250 mls/hr 11/10/25 10:00 11/13/25 10:09 IVPB 11/13/25 10:59 250 mls/hr Q24H YFN Administration Cefepime HCl 2 gm/ Sodium 50 mls @ 100 mls/hr 11/10/25 09:00 11/13/25 10:09 Chloride IVPB 100 mls/hr Q12H YFN Administration Fentanyl Citrate 2,500 mcg in 250 mls @ 7.5 mls/hr 11/10/25 13:05 11/13/25 06:00 Fentanyl 2,500 Mcg/Ns 250 Ml IV CONT 75 mcg/hr .[id number] YFN 7.5 mls/hr Protocol Titration 75 MCG/HR Vancomycin HCl 1,500 mg in 500 mls @ 250 mls/hr 11/12/25 22:00 11/12/25 23:16 Vancomycin 1,500 Mg/Ns 500 Ml IVPB Infused Q24H YFN Infusion Levothyroxine Sodium 112 mcg 11/10/25 06:30 11/13/25 05:34 Levothyroxine Sodium 112 Mcg Tablet PO 112 mcg DAILY@0630 YFN Administration Levothyroxine Sodium 25 mcg 11/10/25 06:30 11/13/25 05:34 Levothyroxine Sodium 25 Mcg Tablet PO 25 mcg DAILY@0630 YFN Administration Multi-Ingred Cream/Lotion/Oil/Oint 1 applic 11/09/25 21:00 11/13/25 10:08 Mineral Oil/White Petrolatum Ointment EACH EYE 1 applic Q12HR YFN Administration Ondansetron HCl 4 mg 11/09/25 13:04 Ondansetron Inj 4 Mg/2 Ml Vial IV PUSH Q4H PRN Nausea Pantoprazole Sodium 40 mg 11/10/25 09:00 11/13/25 10:08 Pantoprazole Sodium Iv 40 Mg Vial IV PUSH 40 mg QAM YFN Administration Sodium Chloride 10 ml 11/12/25 14:00 11/13/25 05:34 Central Line Flush IV PUSH 10 ml Q8HR YFN Administration Sodium Chloride 10 ml 11/12/25 09:17 Central Line Flush IV PUSH PRN PRN with TPN bag changes Sodium Chloride 20 ml 11/12/25 09:17 Central Line Flush IV PUSH PRN PRN after blood draws Radiology Results: ITS Impressions Abdomen X-Ray 11/09/25 13:22 Impression: 1. No acute abnormality. Chest/Abdomen/Pelvis CT 11/10/25 14:11 IMPRESSION: 1. Satisfactory position of endotracheal tube and nasogastric tube. 2. Perihilar vascular congestion of both lungs. Platelike atelectasis of mid left lung. Partial atelectasis of lung bases on both sides. Minimal bilateral pleural effusion. 3. Distended gallbladder containing calcified gallstone. Atrophic kidneys. Chest X-Ray 11/13/25 08:28 IMPRESSION: 1. No significant change in scattered patchy bilateral airspace disease. Labs Labs: Laboratory Results - last 24 hr 11/12/25 11/12/25 11/12/25 11:28 15:31 17:52 WBC RBC Hgb Hct MCV MCH MCHC RDW Plt Count MPV Immature Gran % (Auto) Neut % (Auto) Lymph % (Auto) [place] % (Auto) Eos % (Auto) Baso % (Auto) Lymph # (Auto) [place] # (Auto) Eos # (Auto) Baso # (Auto) Abs Immat Gran (auto) Absolute Neuts (auto) Absolute Nucleated RBC Nucleated RBC % PT INR APTT Puncture Site ABG pH ABG pCO2 ABG pO2 ABG PO2/FiO2 Ratio ABG HCO3 ABG O2 Saturation ABG O2 Content ABG Base Excess A-a Gradient Oxyhemoglobin Carboxyhemoglobin Methemoglobin Reduced Hemoglobin Total Hemoglobin O2 Delivery Device O2 Liters/Min Minute Volume Vent Rate Vent Mode FiO2 Tidal Volume PEEP Peak Inspir Pressure Pressure Support Sodium 141 Potassium 4.3 Chloride 97 L Carbon Dioxide 39 H Anion Gap 5 BUN 47 H Creatinine 1.24 H Estim Creat Clear Calc 56 Estimated GFR 43 L Glucose 149 H POC Capillary Glucose 121 H 164 H Calcium 8.8 Phosphorus Magnesium Total Bilirubin AST ALT Alkaline Phosphatase Total Protein Albumin Vancomycin Trough 21.4 H 11/12/25 11/13/25 11/13/25 23:23 04:56 05:31 WBC 8.7 RBC 3.62 L Hgb 10.3 L Hct 34.3 L MCV 94.8 MCH 28.5 MCHC 30.0 L RDW 14.9 H Plt Count 183 MPV 10.2 Immature Gran % (Auto) 1.3 H Neut % (Auto) 81.0 H Lymph % (Auto) 9.0 L [place] % (Auto) 8.1 Eos % (Auto) 0.5 Baso % (Auto) 0.1 L Lymph # (Auto) 0.79 L [place] # (Auto) 0.7 H Eos # (Auto) 0.0 Baso # (Auto) 0.0 Abs Immat Gran (auto) 0.11 H Absolute Neuts (auto) 7.1 H Absolute Nucleated RBC 0.000 Nucleated RBC % 0.0 PT 15.1 H INR 1.2 APTT 30.7 Puncture Site Right radial ABG pH 7.421 ABG pCO2 59.2 H ABG pO2 81.4 ABG PO2/FiO2 Ratio 2.33 ABG HCO3 37.6 H ABG O2 Saturation 95.9 ABG O2 Content 16.2 ABG Base Excess 11.1 A-a Gradient 99.3 Oxyhemoglobin 95.3 Carboxyhemoglobin 0.6 Methemoglobin 0.1 Reduced Hemoglobin 4.0 Total Hemoglobin 12.0 O2 Delivery Device Ventilator O2 Liters/Min Not Reportable Minute Volume Not Reportable Vent Rate 16 Vent Mode Cmv FiO2 35 Tidal Volume 380 PEEP 8 Peak Inspir Pressure Not Reportable Pressure Support Not Reportable Sodium 140 Potassium 4.1 Chloride 96 L Carbon Dioxide 38 H Anion Gap 6 BUN 56 H Creatinine 1.18 H Estim Creat Clear Calc 59 Estimated GFR 45 L Glucose 145 H POC Capillary Glucose 178 H Calcium 8.8 Phosphorus 3.6 Magnesium 1.9 Total Bilirubin 0.4 AST 36 ALT 31 Alkaline Phosphatase 85 Total Protein 6.4 Albumin 3.3 L Vancomycin Trough
--- NOTE | 2025-11-13 11:15 | PCNFU ---
Nutrition Follow-Up Complete: Suboptimal Energy Intake as related to mechanical ventilation as evidenced by tube feedings. Goal: Meet estimated nutritional needs We will continue current goal. Pt current nutrition is Vital HP at 50 ml/hr. Last recorded weight is 146.4 kg, down from 147.1 kg on admit. Bowel Motility: No BM reported Labs Reviewed: Glu 145, BUN 56,Cr 1.18, Alb 3.3 Meds Noted:Fentanyl, Decadron, Protonix Skin: WNL Additional Notes: Patient remains on mechanical vent. COVID+. Tube feedings are being tolerated of Vital HP at 50 ml/hr. Total Nutrition:1100 kcal/96 gm protein/920 ml water. Flush 30 ml q 4 hours. Tube feedings providing 88% kcal needs at 22 kcal/kg IBW and 85% protein needs at 2.0 gm/kg IBW. Agree with diet orders. Will monitor weight, labs, skin, diet orders, meds every Wednesday and Wednesday.
[2025-11-13 11:37] LABS: MRSA (PCR) DETECTED (NOT DETECTE)
[2025-11-13] MEDS: dexAMETHasone SOD PHOS INJ 10 MG/ML 1 ML VIAL 6 MG IV PUSH (12:55)
[2025-11-13] MEDS: hydrALAZINE 5 MG TABLET PO ×3 (12:56→20:56)
[2025-11-13] MEDS: IPRATROPIUM 0.5 MG/ALBUTEROL SULFATE 2.5 MG (BASE) AMPUL.NEB 3 ML INHALATION ×2 (13:38→20:28)
[2025-11-13] MEDS: AZITHROMYCIN IV 500 MG in SODIUM CHLORIDE 0.9% IV 250 ML IVPB (18:17)
[2025-11-13] MEDS: VANCOMYCIN 1,500 MG/NS 500 ML 1,500 MG/500 ML BAG 250 MG IVPB (21:16)
[2025-11-14] VITALS (38 sets, daily range): BP systolic 124–180; BP diastolic 51–102; PULSE 51–81; RESP 14–75; TEMP 36.9–37.3; O2SAT 92–100
[2025-11-14] MEDS: IPRATROPIUM 0.5 MG/ALBUTEROL SULFATE 2.5 MG (BASE) AMPUL.NEB 3 ML INHALATION ×4 (02:35→22:25)
[2025-11-14] MEDS: FENTANYL 2,500MCG/NS250ML(*CRX 2,500 MCG/250 ML BAG 7.5 MCG IV CONT (04:32)
[2025-11-14] MEDS: CENTRAL LINE FLUSH 10 ML IV PUSH ×2 (04:33→21:41)
[2025-11-14 04:48] LABS: Hematocrit 33.3 % (37.0-47.0); Hemoglobin 10.1 g/dL (12.0-15.0); Immature Granulocyte Percent A 1.5 % (0-0.5); Lymphocytes Absolute Auto 1.08 K/mm3 (0.9-3.2); Mean Corpuscular HGB Conc 30.3 g/dl (32-36); Mean Corpuscular Hemoglobin 28.2 pg (26-34); Mean Corpuscular Volume 93.0 fl (80-100); Nucleated Red Blood Cells Absolute Auto 0.000 K/mm3 (0.0-0.012); Nucleated Red Blood Cells Perc 0.0 % (0.0-0.2); Platelet Count Result 202 k/mm3 (150-375); Red Blood Count 3.58 M/mm3 (4.2-5.4); White Blood Count 9.8 K/mm3 (4.5-10.0)
[2025-11-14 05:08] LABS: Alveolar/Arterial O2 Gradient 96.8 mmHg; Carboxyhemoglobin 0.8 % THb (0-2.0); Fractional Inspired Oxygen 35 %; HCO3 ABG 32.9 mEq/l (22.0-26.0); Methemoglobin ABG 0.2 %THb (0-1.5); Oxygen Content ABG 16.1 %vol (16.0-22.0); Oxygen Saturation ABG 97.0 % (95.0-100.0); PCO2 ABG 52.3 mmHg (35.0-45.0); PO2 ABG 92.0 mmHg (80.0-100.0); PO2 FiO2 Ratio Arterial Blood 2.63 %; Reduced Hemoglobin 2.8 %THb (0-5.0)
[2025-11-14 05:10] LABS: Modified Allen's Test Pass; Site Drawn RIGHT RADIAL
[2025-11-14 05:11] LABS: Arterial Blood Gas Ventilator rate 16 /MIN
[2025-11-14 05:12] LABS: Arterial Blood Gas Tidal Volume 380 ml
[2025-11-14] MEDS: LEVOTHYROXINE SODIUM 112 MCG TABLET PO (05:12)
[2025-11-14] MEDS: LEVOTHYROXINE SODIUM 25 MCG TABLET PO (05:12)
[2025-11-14 05:22] LABS: INR 1.2; Partial Thromboplastin Time 30.2 Seconds (22.3-36.8); Prothrombin Time 14.6 Seconds (11.1-14.7)
[2025-11-14 05:34] LABS: Hypochromasia 1+; Ovalocytes 1+; Schistocytes None Seen
[2025-11-14 05:45] LABS: Alanine Aminotransferase 28 U/L (6-35); Albumin Level 3.2 g/dL (3.5-5.1); Alkaline Phosphatase 80 U/L (38-126); Anion Gap 3 mmol/L (4-12); Aspartate Amino Transferase 27 U/L (14-36); Bilirubin,Total 0.3 mg/dL (0.2-1.3); Blood Urea Nitrogen 59 mg/dL (7-17); Calcium 8.6 mg/dL (8.4-10.2); Carbon Dioxide 39 mmol/L (22-30); Chloride 98 mmol/L (98-107); Estimated CRCL calculation 57 ml/min; Estimated Glomerular Filt Rate 45; Glucose 147 mg/dL (65-110); Magnesium 1.8 mg/dL (1.6-2.3); Potassium 4.2 mmol/L (3.4-5.0); Sodium 140 mmol/L (137-145); Total Protein 6.1 g/dL (6.3-8.2)
[2025-11-14] MEDS: ATORVASTATIN 20 MG TABLET PO (08:50)
[2025-11-14] MEDS: MINERAL OIL/WHITE PETROLATUM OINTMENT 1 APPLIC EACH EYE ×2 (08:50→21:40)
[2025-11-14] MEDS: PANTOPRAZOLE SODIUM IV 40 MG VIAL IV PUSH (08:50)
[2025-11-14] MEDS: ASPIRIN 325 MG TABLET FEED TUBE (08:51)
[2025-11-14] MEDS: ENOXAPARIN 40 MG/0.4 ML SYRINGE SUB-Q (08:51)
[2025-11-14] MEDS: hydrALAZINE 5 MG TABLET PO ×4 (08:51→21:40)
[2025-11-14] MEDS: CEFEPIME 2 GM in SODIUM CHLORIDE 0.9% IV 50 ML 100 ML IVPB ×2 (08:51→21:41)
--- NOTE | 2025-11-14 11:31 | PCFNICU ---
ICU Rounding Note: Pt current nutrition is Vital HP at 50 ml/hr. Last recorded weight is 142.1 kg, down from 147.1 Bowel Motility: No BM reported. Labs Reviewed: Glu 147, BUN 59, Cr 1.2, Alb 3.2, Hgb 10.1, Hct 33.3 Meds Noted: Fentanyl, Decadron, Protonix Skin: WNL Additional Notes: Patient remains on mechanical vent. Tube feedings are being tolerated of Vital HP at 50 ml/hr with flush 30 ml q 4 hours. Total Nutrition: 1100 kcal/96 gm protein/920 ml water. Agree with diet orders. Following in ICU rounds. Will monitor weight, labs, skin, diet orders, meds every Wednesday and Wednesday.
[2025-11-14] MEDS: BARICITINIB 2 MG TABLET PO (12:08)
[2025-11-14] MEDS: dexAMETHasone SOD PHOS INJ 10 MG/ML 1 ML VIAL 6 MG IV PUSH (12:08)
--- NOTE | 2025-11-14 13:33 | WPDINTPN2 ---
Assessment and Plan Assessment and Plan (1) Acute hypercapnic respiratory failure: Code(s): J96.02 - Acute respiratory failure with hypercapnia Status: Acute (2) Pneumonia: Code(s): J18.9 - Pneumonia, unspecified organism Status: Acute (3) COVID: Code(s): U07.1 - COVID-19 Status: Acute Plan 1. Neurologically: On fentanyl at 50 mics, she looked comfortable and able to follow commands. 2. Cardiovascular: Blood pressure seems to have gotten better with hydralazine. She continues to have frequent ectopy. 3. Respiratory: Failure associated with bilateral pneumonia which is probably bacterial superimposed to COVID. FiO2 is down as well as PEEP but did not do well on pressure support trials today. We will consider further diuresis. She has at least moderate amount of secretions. Will attempt pressure support trials in the morning. Continue with updrafts and steroids plus antibiotics. She completed Zithromax. 4. GI: Patient is on tube feedings. Continue GI prophylaxis. She is having bowel movements. LFTs are normal. 5. and renal: BUN is mildly increased creatinine is similar. Good urine output. Electrolytes are balanced. 6. Endocrine: Blood sugars are mildly elevated on steroids. 7. DVT prophylaxis: Lovenox. 8. Hematological: Her CBCs overall similar with some anemia and normal white blood cell count. 9. Id: Currently on cefepime and vancomycin since her MRSA PCR was positive. Her chest x-rays not necessarily consistent with COVID pneumonia but more bacterial pneumonia. Sputum culture so far negative as well as blood cultures. Will continue with present antibiotics. She concluded azithromycin. Subjective Date/time seen: 11/14/25 13:33 Interval history: Patient was placed on pressure support trials today but became more tachypneic and dropper tidal volume so she could not be extubated. She still has at least moderate amount of secretions. Last chest x-ray done today still has bilateral infiltrates Exam Narrative: Patient does wake up and tries to interact Const: General: no acute distress and uncomfortable HENMT: Mouth: Yes dry mucous membranes Eyes: General: appearance normal, both eyes and all related structures Neck: Neck: no JVD Resp: Auscultation: rhonchi and wheezes Cardio: Other: Irregular no murmurs GI: GI Palp: Yes Soft to palpation Auscultation: normal bowel sounds Urinary Catheter: Urinary Catheter: patent and draining Skin: General skin exam: normal color Neuro: Other: She does wake up and interact Extrem: General: edema Objective Data Vital Signs Vital Signs: Vital Signs - 24 hr 11/13/25 13:38 11/13/25 13:42 11/13/25 13:50 Temperature Pulse Rate 78 79 82 Respiratory Rate 14 16 Blood Pressure Pulse Oximetry 96 Oxygen Delivery Mechanical Ventilation Fraction of Inspired Oxygen 35 11/13/25 14:00 11/13/25 14:00 11/13/25 14:00 Temperature 98.9 F Pulse Rate 81 91 83 Respiratory Rate 14 16 Blood Pressure 156/66 H Pulse Oximetry 95 Oxygen Delivery Fraction of Inspired Oxygen 11/13/25 15:00 11/13/25 16:00 11/13/25 16:00 Temperature 98.6 F 98.4 F Pulse Rate 78 73 73 Respiratory Rate 14 14 Blood Pressure 137/62 128/72 Pulse Oximetry 93 94 Oxygen Delivery Fraction of Inspired Oxygen 11/13/25 16:00 11/13/25 16:00 11/13/25 17:00 Temperature 98.4 F Pulse Rate 66 81 69 Respiratory Rate 16 17 Blood Pressure 130/72 Pulse Oximetry 96 94 Oxygen Delivery Mechanical Ventilation Fraction of Inspired Oxygen 30 11/13/25 17:04 11/13/25 18:00 11/13/25 18:00 Temperature 98.6 F Pulse Rate 68 64 64 Respiratory Rate Blood Pressure 137/61 Pulse Oximetry 95 94 Oxygen Delivery Mechanical Ventilation Fraction of Inspired Oxygen 35 11/13/25 18:00 11/13/25 19:00 11/13/25 20:00 Temperature 98.8 F 99.1 F Pulse Rate 108 H 68 59 L Respiratory Rate 18 16 Blood Pressure 128/57 L 148/56 H Pulse Oximetry 97 97 Oxygen Delivery Fraction of Inspired Oxygen 11/13/25 20:00 11/13/25 20:00 11/13/25 20:00 Temperature Pulse Rate 64 Respiratory Rate 18 Blood Pressure Pulse Oximetry Oxygen Delivery Mechanical Ventilation Fraction of Inspired Oxygen 35 35 11/13/25 20:00 11/13/25 20:29 11/13/25 20:29 Temperature Pulse Rate 58 L 64 64 Respiratory Rate 18 Blood Pressure Pulse Oximetry 97 Oxygen Delivery Mechanical Ventilation Fraction of Inspired Oxygen 35 11/13/25 21:00 11/13/25 22:00 11/13/25 22:00 Temperature 99.0 F 99.0 F Pulse Rate 75 74 74 Respiratory Rate 16 20 20 Blood Pressure 152/60 H 148/57 H Pulse Oximetry 96 96 Oxygen Delivery Fraction of Inspired Oxygen 11/13/25 22:00 11/13/25 23:00 11/13/25 23:58 Temperature 99.0 F Pulse Rate 74 69 74 Respiratory Rate 16 Blood Pressure 138/58 L Pulse Oximetry 98 99 Oxygen Delivery Mechanical Ventilation Fraction of Inspired Oxygen 35 11/14/25 00:00 11/14/25 00:00 11/14/25 00:00 Temperature 99.1 F Pulse Rate 70 Respiratory Rate 18 Blood Pressure 172/61 H Pulse Oximetry 96 Oxygen Delivery Mechanical Ventilation Fraction of Inspired Oxygen 35 35 11/14/25 00:00 11/14/25 00:00 11/14/25 01:00 Temperature 99.0 F Pulse Rate 70 70 51 L Respiratory Rate 18 16 Blood Pressure 124/59 L Pulse Oximetry 98 Oxygen Delivery Fraction of Inspired Oxygen 11/14/25 02:00 11/14/25 02:00 11/14/25 02:00 Temperature 98.9 F Pulse Rate 57 L 57 L 57 L Respiratory Rate 16 16 Blood Pressure 155/64 H Pulse Oximetry 99 Oxygen Delivery Fraction of Inspired Oxygen 11/14/25 02:36 11/14/25 02:37 11/14/25 02:46 Temperature Pulse Rate 68 66 65 Respiratory Rate 17 16 Blood Pressure Pulse Oximetry 97 Oxygen Delivery Mechanical Ventilation Fraction of Inspired Oxygen 35 11/14/25 03:00 11/14/25 04:00 11/14/25 04:00 Temperature 98.9 F Pulse Rate 71 Respiratory Rate 16 Blood Pressure 151/51 H Pulse Oximetry 95 Oxygen Delivery Mechanical Ventilation Fraction of Inspired Oxygen 35 35 11/14/25 04:00 11/14/25 04:00 11/14/25 04:00 Temperature 98.9 F Pulse Rate 78 78 77 Respiratory Rate 18 18 Blood Pressure 149/61 H Pulse Oximetry 93 Oxygen Delivery Fraction of Inspired Oxygen 11/14/25 04:32 11/14/25 05:00 11/14/25 05:32 Temperature 98.7 F Pulse Rate 73 71 78 Respiratory Rate 16 16 Blood Pressure 180/79 H Pulse Oximetry 100 96 Oxygen Delivery Mechanical Ventilation Fraction of Inspired Oxygen 35 11/14/25 06:00 11/14/25 06:00 11/14/25 06:00 Temperature 98.8 F Pulse Rate 68 68 68 Respiratory Rate 18 18 Blood Pressure 153/58 H Pulse Oximetry 97 Oxygen Delivery Fraction of Inspired Oxygen 11/14/25 07:00 11/14/25 08:00 11/14/25 08:00 Temperature 99.0 F 99.0 F Pulse Rate 64 57 L 57 L Respiratory Rate 29 H 16 18 Blood Pressure 154/62 H 154/102 H Pulse Oximetry 97 98 98 Oxygen Delivery Mechanical Ventilation Fraction of Inspired Oxygen 35 11/14/25 08:49 11/14/25 09:00 11/14/25 09:00 Temperature Pulse Rate 68 73 73 Respiratory Rate 18 16 Blood Pressure Pulse Oximetry 95 Oxygen Delivery Mechanical Ventilation Fraction of Inspired Oxygen 35 11/14/25 09:00 11/14/25 09:08 11/14/25 10:00 Temperature 99.2 F 99.0 F Pulse Rate 68 72 81 Respiratory Rate 18 16 20 Blood Pressure 172/78 H 179/76 H Pulse Oximetry 99 97 Oxygen Delivery Fraction of Inspired Oxygen 11/14/25 11:00 11/14/25 11:15 11/14/25 12:00 Temperature 98.9 F 99.1 F Pulse Rate 79 72 73 Respiratory Rate 26 H 15 Blood Pressure 126/85 133/69 Pulse Oximetry 97 95 96 Oxygen Delivery Mechanical Ventilation Fraction of Inspired Oxygen 35 Intake/Output Intake/Output: Intake & Output 11/11/25 11/12/25 11/13/25 11/14/25 23:59 23:59 23:59 23:59 Intake Total 4114.7 2785.8 2443.1 537.5 Output Total 2900 4500 4300 800 Balance 1214.7 -1714.2 -1856.9 -262.5 Meds/Results Medications: Active Medications Generic Name Dose Route Start Last Admin Trade Name Freq PRN Reason Stop Dose Admin Acetaminophen 650 mg 11/09/25 13:04 Acetaminophen 650 Mg Suppository RECTAL Q6H PRN Mild Pain (1-3) or Fever Acetaminophen 650 mg 11/09/25 15:06 11/11/25 01:38 Acetaminophen 325 Mg Tablet PO 650 mg Q6H PRN Administration Mild Pain (1-3) or Fever Albuterol/Ipratropium 3 ml 11/10/25 08:03 11/11/25 08:15 Ipratropium 0.5 Mg/Albuterol Sulfate 2.5 Mg (Base) Ampul.Neb 3 Ml INHALATION 3 ml Q6HRT PRN Administration Wheezing Albuterol/Ipratropium 3 ml 11/13/25 14:00 11/14/25 09:00 Ipratropium 0.5 Mg/Albuterol Sulfate 2.5 Mg (Base) Ampul.Neb 3 Ml INHALATION 3 ml Q6HRT YFN Administration Aspirin 325 mg 11/12/25 08:00 11/14/25 08:51 Aspirin 325 Mg Tablet FEED TUBE 325 mg DAILY@0800 YFN Administration Atorvastatin Calcium 20 mg 11/10/25 09:00 11/14/25 08:50 Atorvastatin 20 Mg Tablet PO 20 mg DAILY YFN Administration Baricitinib 2 mg 11/10/25 11:00 11/14/25 12:08 Baricitinib 2 Mg Tablet PO 11/23/25 11:01 2 mg DAILY@1100 YFN Administration Dexamethasone Sodium Phosphate 6 mg 11/09/25 13:00 11/14/25 12:08 Dexamethasone Sod Phos Inj 10 Mg/Ml 1 Ml Vial IV PUSH 11/18/25 13:01 6 mg Q24H YFN Administration Enoxaparin Sodium 40 mg 11/09/25 15:00 11/14/25 08:51 Enoxaparin 40 Mg/0.4 Ml Syringe SUB-Q 40 mg DAILY YFN Administration Hydralazine HCl 5 mg 11/13/25 13:00 11/14/25 12:09 Hydralazine 5 Mg Tablet PO 5 mg QID YFN Administration Cefepime HCl 2 gm/ Sodium 50 mls @ 100 mls/hr 11/10/25 09:00 11/14/25 08:51 Chloride IVPB 100 mls/hr Q12H YFN Administration Fentanyl Citrate 2,500 mcg in 250 mls @ 5 mls/hr 11/10/25 13:05 11/14/25 08:49 Fentanyl 2,500 Mcg/Ns 250 Ml IV CONT 50 mcg/hr .Q50H YFN 5 mls/hr Protocol Titration 50 MCG/HR Vancomycin HCl 1,500 mg in 500 mls @ 250 mls/hr 11/12/25 22:00 11/13/25 23:16 Vancomycin 1,500 Mg/Ns 500 Ml IVPB Infused Q24H YFN Infusion Levothyroxine Sodium 112 mcg 11/10/25 06:30 11/14/25 05:12 Levothyroxine Sodium 112 Mcg Tablet PO 112 mcg DAILY@0630 YFN Administration Levothyroxine Sodium 25 mcg 11/10/25 06:30 11/14/25 05:12 Levothyroxine Sodium 25 Mcg Tablet PO 25 mcg DAILY@0630 YFN Administration Multi-Ingred Cream/Lotion/Oil/Oint 1 applic 11/09/25 21:00 11/14/25 08:50 Mineral Oil/White Petrolatum Ointment EACH EYE 1 applic Q12HR YFN Administration Ondansetron HCl 4 mg 11/09/25 13:04 Ondansetron Inj 4 Mg/2 Ml Vial IV PUSH Q4H PRN Nausea Pantoprazole Sodium 40 mg 11/10/25 09:00 11/14/25 08:50 Pantoprazole Sodium Iv 40 Mg Vial IV PUSH 40 mg QAM YFN Administration Sodium Chloride 10 ml 11/12/25 14:00 11/14/25 13:04 Central Line Flush IV PUSH Not Given Q8HR YFN Sodium Chloride 10 ml 11/12/25 09:17 Central Line Flush IV PUSH PRN PRN with TPN bag changes Sodium Chloride 20 ml 11/12/25 09:17 Central Line Flush IV PUSH PRN PRN after blood draws Radiology Results: ITS Impressions Abdomen X-Ray 11/09/25 13:22 Impression: 1. No acute abnormality. Chest/Abdomen/Pelvis CT 11/10/25 14:11 IMPRESSION: 1. Satisfactory position of endotracheal tube and nasogastric tube. 2. Perihilar vascular congestion of both lungs. Platelike atelectasis of mid left lung. Partial atelectasis of lung bases on both sides. Minimal bilateral pleural effusion. 3. Distended gallbladder containing calcified gallstone. Atrophic kidneys. Chest X-Ray 11/14/25 08:08 IMPRESSION: 1. Persistent bilateral perihilar predominant airspace and interstitial opacities which could represent pneumonia or pulmonary edema. Labs Labs: Laboratory Results - last 24 hr 11/13/25 11/14/25 11/14/25 18:15 04:42 04:59 WBC 9.8 RBC 3.58 L Hgb 10.1 L Hct 33.3 L MCV 93.0 MCH 28.2 MCHC 30.3 L RDW 14.9 H Plt Count 202 MPV 9.9 Immature Gran % (Auto) 1.5 H Neut % (Auto) 79.5 H Lymph % (Auto) 11.1 L [place] % (Auto) 7.2 Eos % (Auto) 0.5 Baso % (Auto) 0.2 Lymph # (Auto) 1.08 [place] # (Auto) 0.7 H Eos # (Auto) 0.1 Baso # (Auto) 0.0 Abs Immat Gran (auto) 0.15 H Absolute Neuts (auto) 7.8 H Absolute Nucleated RBC 0.000 Band Neutrophils % Not Reportable Nucleated RBC % 0.0 Platelet Estimate Adequate Hypochromasia 1+ Ovalocytes 1+ Schistocytes None seen PT 14.6 INR 1.2 APTT 30.2 Puncture Site Right radial ABG pH 7.416 ABG pCO2 52.3 H ABG pO2 92.0 ABG PO2/FiO2 Ratio 2.63 ABG HCO3 32.9 H ABG O2 Saturation 97.0 ABG O2 Content 16.1 ABG Base Excess 7.1 A-a Gradient 96.8 Oxyhemoglobin 96.2 Carboxyhemoglobin 0.8 Methemoglobin 0.2 Reduced Hemoglobin 2.8 Total Hemoglobin 11.8 L O2 Delivery Device Ventilator O2 Liters/Min Not Reportable Minute Volume Not Reportable Vent Rate 16 Vent Mode Cmv FiO2 35 Tidal Volume 380 PEEP 6 Peak Inspir Pressure Not Reportable Pressure Support Not Reportable Sodium 140 Potassium 4.2 Chloride 98 Carbon Dioxide 39 H Anion Gap 3 L BUN 59 H Creatinine 1.20 H Estim Creat Clear Calc 57 Estimated GFR 45 L Glucose 147 H POC Capillary Glucose 187 H Calcium 8.6 Phosphorus 3.7 Magnesium 1.8 Total Bilirubin 0.3 AST 27 ALT 28 Alkaline Phosphatase 80 Total Protein 6.1 L Albumin 3.2 L Critical Care Time Critical Care Time Critical Care Time: Yes Initial evaluation, discuss w/ involved parties, attempting to gather old records: 10 minutes Documenting medical record: 10 minutes Review of results (EKG's, labs, imaging): 10 minutes Serial repeat bedside evaluation: 10 minutes Discussing case with multiple memebers of the care team and consultants: 10 minutes Total Critical Care Time: 50
[2025-11-14] MEDS: VANCOMYCIN 1,500 MG/NS 500 ML 1,500 MG/500 ML BAG 250 MG IVPB (23:00)
[2025-11-15] VITALS (40 sets, daily range): BP systolic 106–187; BP diastolic 53–98; PULSE 60–85; RESP 14–71; TEMP 36.8–37.2; O2SAT 91–99
[2025-11-15] MEDS: IPRATROPIUM 0.5 MG/ALBUTEROL SULFATE 2.5 MG (BASE) AMPUL.NEB 3 ML INHALATION ×4 (02:52→20:17)
[2025-11-15] MEDS: LEVOTHYROXINE SODIUM 25 MCG TABLET PO (05:17)
[2025-11-15] MEDS: LEVOTHYROXINE SODIUM 112 MCG TABLET PO (05:17)
[2025-11-15] MEDS: CENTRAL LINE FLUSH 10 ML IV PUSH ×3 (05:17→21:03)
[2025-11-15 05:22] LABS: Hematocrit 33.6 % (37.0-47.0); Hemoglobin 10.3 g/dL (12.0-15.0); Immature Granulocyte Percent A 4.8 % (0-0.5); Lymphocytes Absolute Auto 1.18 K/mm3 (0.9-3.2); Mean Corpuscular HGB Conc 30.7 g/dl (32-36); Mean Corpuscular Hemoglobin 28.8 pg (26-34); Mean Corpuscular Volume 93.9 fl (80-100); Nucleated Red Blood Cells Absolute Auto 0.000 K/mm3 (0.0-0.012); Nucleated Red Blood Cells Perc 0.0 % (0.0-0.2); Platelet Count Result 212 k/mm3 (150-375); Red Blood Count 3.58 M/mm3 (4.2-5.4); White Blood Count 10.4 K/mm3 (4.5-10.0)
[2025-11-15 05:51] LABS: Alveolar/Arterial O2 Gradient 67.3 mmHg; Fractional Inspired Oxygen 30 %; HCO3 ABG 34.8 mEq/l (22.0-26.0); Oxygen Content ABG 16.5 %vol (16.0-22.0); Oxygen Saturation ABG 96.2 % (95.0-100.0); PCO2 ABG 54.1 mmHg (35.0-45.0); PO2 ABG 83.0 mmHg (80.0-100.0); PO2 FiO2 Ratio Arterial Blood 2.77 %
[2025-11-15 05:56] LABS: Modified Allen's Test Pass; Site Drawn LEFT RADIAL
[2025-11-15 05:57] LABS: Arterial Blood Gas Tidal Volume 380 ml; Arterial Blood Gas Ventilator rate 14 /MIN
[2025-11-15] MEDS: ASPIRIN 325 MG TABLET FEED TUBE (08:55)
[2025-11-15] MEDS: PANTOPRAZOLE SODIUM IV 40 MG VIAL IV PUSH (08:55)
[2025-11-15] MEDS: hydrALAZINE 5 MG TABLET PO ×2 (08:55→12:09)
[2025-11-15] MEDS: ENOXAPARIN 40 MG/0.4 ML SYRINGE SUB-Q (08:55)
[2025-11-15] MEDS: MINERAL OIL/WHITE PETROLATUM OINTMENT 1 APPLIC EACH EYE ×2 (08:55→20:43)
[2025-11-15] MEDS: ATORVASTATIN 20 MG TABLET PO (08:55)
[2025-11-15] MEDS: CEFEPIME 2 GM in SODIUM CHLORIDE 0.9% IV 50 ML 100 ML IVPB ×2 (08:56→20:43)
[2025-11-15] MEDS: BARICITINIB 2 MG TABLET PO (12:08)
[2025-11-15] MEDS: dexAMETHasone SOD PHOS INJ 10 MG/ML 1 ML VIAL 6 MG IV PUSH (12:09)
--- NOTE | 2025-11-15 14:06 | P.PNINT_ITS ---
Assessment and Plan Assessment and Plan (1) Acute hypercapnic respiratory failure: Code(s): J96.02 - Acute respiratory failure with hypercapnia Status: Acute (2) COVID: Code(s): U07.1 - COVID-19 Status: Acute (3) COPD (chronic obstructive pulmonary disease): Code(s): J44.9 - Chronic obstructive pulmonary disease, unspecified Status: Acute Plan 1. Neurologically: Patient is awake and interactive. 2. Cardiovascular she has frequent ectopy. Blood pressure is overall better but still elevated so will increase hydralazine. 3. Respiratory: Failure overall clinically better and tolerated trials longer but still became tachypneic with decreased tidal volumes. We will attempt further weaning tomorrow he. 4. GI: She is tolerating tube feedings and having bowel movements. 5. and Renal: BUN and creatinine similar. Electrolytes are balanced. 6. Endocrine: Blood sugars are overall stable. Continue present management. Continue Synthroid 7. DVT prophylaxis, Lovenox. 8. Hematologically: CBC shows mild leukocytosis. Stable hemoglobin and platelet count 9. Id: Today is day 6 of antibiotics for treatment of pneumonia superimposed on COVID. MRSA PCR was positive so she is receiving vancomycin plus cefepime. Will consider 7 days total of antibiotics but will repeat chest x-ray tomorrow. Subjective Date/time seen: 11/15/25 14:06 Interval history: Patient was placed on pressure support trials but unfortunately developed tachypnea and decrease tidal volumes so did not get extubated Exam Narrative: Patient is awake and interactive Const: General: comfortable Eyes: General: appearance normal, both eyes and all related structures Neck: Neck: no JVD Resp: Effort & Inspection: normal respiratory effort Other: She has minimal wheezing which have improved since yesterday Cardio: Rate: regular rate GI: GI Palp: Yes Soft to palpation Other: Diminished bowel sounds Urinary Catheter: Urinary Catheter: urine clear Skin: General skin exam: normal color Extrem: Other: Edema present Objective Data Vital Signs Vital Signs: Vital Signs - 24 hr 11/14/25 14:08 11/14/25 15:00 11/14/25 16:00 Temperature 99.0 F 99.0 F Pulse Rate 69 65 75 Respiratory Rate 14 22 H 14 Blood Pressure 130/51 L 170/61 H Pulse Oximetry 94 93 Oxygen Delivery Fraction of Inspired Oxygen 11/14/25 16:00 11/14/25 16:00 11/14/25 16:00 Temperature Pulse Rate 73 73 Respiratory Rate 73 H Blood Pressure Pulse Oximetry 92 Oxygen Delivery Mechanical Ventilation Fraction of Inspired Oxygen 35 30 11/14/25 17:00 11/14/25 17:54 11/14/25 18:00 Temperature 99 F Pulse Rate 70 72 76 Respiratory Rate 20 Blood Pressure 163/69 H Pulse Oximetry 95 96 Oxygen Delivery Mechanical Ventilation Fraction of Inspired Oxygen 35 11/14/25 18:00 11/14/25 19:00 11/14/25 20:00 Temperature 99 F 98.9 F Pulse Rate 74 68 Respiratory Rate 18 16 Blood Pressure 177/75 H 166/65 H Pulse Oximetry 95 96 Oxygen Delivery Fraction of Inspired Oxygen 30 11/14/25 20:00 11/14/25 20:00 11/14/25 20:00 Temperature 98.9 F Pulse Rate 65 66 Respiratory Rate 19 Blood Pressure 124/55 L Pulse Oximetry 95 95 Oxygen Delivery Mechanical Ventilation Fraction of Inspired Oxygen 30 11/14/25 20:00 11/14/25 21:00 11/14/25 22:00 Temperature 98.7 F 98.7 F Pulse Rate 66 69 66 Respiratory Rate 19 16 24 H Blood Pressure 146/88 H 156/62 H Pulse Oximetry 97 96 Oxygen Delivery Fraction of Inspired Oxygen 11/14/25 22:00 11/14/25 22:00 11/14/25 22:33 Temperature Pulse Rate 66 66 69 Respiratory Rate 24 H Blood Pressure Pulse Oximetry 97 Oxygen Delivery Mechanical Ventilation Fraction of Inspired Oxygen 35 11/14/25 22:35 11/14/25 22:45 11/14/25 23:00 Temperature 98.5 F Pulse Rate 69 70 72 Respiratory Rate 14 14 22 H Blood Pressure 165/90 H Pulse Oximetry 94 Oxygen Delivery Fraction of Inspired Oxygen 11/15/25 00:00 11/15/25 00:00 11/15/25 00:00 Temperature 98.4 F Pulse Rate 68 68 Respiratory Rate 20 20 Blood Pressure 126/56 L Pulse Oximetry 94 94 Oxygen Delivery Mechanical Ventilation Fraction of Inspired Oxygen 30 11/15/25 00:00 11/15/25 00:00 11/15/25 01:00 Temperature 98.2 F Pulse Rate 67 64 Respiratory Rate 19 Blood Pressure 123/53 L Pulse Oximetry 93 Oxygen Delivery Fraction of Inspired Oxygen 30 11/15/25 02:00 11/15/25 02:00 11/15/25 02:00 Temperature 98.2 F Pulse Rate 62 62 62 Respiratory Rate 23 H 23 H Blood Pressure 160/62 H Pulse Oximetry 96 Oxygen Delivery Fraction of Inspired Oxygen 11/15/25 02:54 11/15/25 02:57 11/15/25 03:00 Temperature 98.2 F Pulse Rate 68 68 66 Respiratory Rate 14 22 H Blood Pressure 160/68 H Pulse Oximetry 95 95 Oxygen Delivery Mechanical Ventilation Fraction of Inspired Oxygen 30 11/15/25 03:07 11/15/25 04:00 11/15/25 04:00 Temperature Pulse Rate 72 Respiratory Rate 14 Blood Pressure Pulse Oximetry 97 Oxygen Delivery Mechanical Ventilation Fraction of Inspired Oxygen 30 30 11/15/25 04:00 11/15/25 04:00 11/15/25 04:00 Temperature 98.3 F Pulse Rate 65 65 65 Respiratory Rate 21 H 21 H Blood Pressure 161/83 H Pulse Oximetry 94 Oxygen Delivery Fraction of Inspired Oxygen 11/15/25 05:00 11/15/25 05:38 11/15/25 06:00 Temperature 98.4 F Pulse Rate 66 67 64 Respiratory Rate 22 H Blood Pressure 158/91 H Pulse Oximetry 97 95 Oxygen Delivery Mechanical Ventilation Fraction of Inspired Oxygen 30 11/15/25 06:00 11/15/25 06:00 11/15/25 07:00 Temperature 98.4 F 98.5 F Pulse Rate 64 64 60 Respiratory Rate 20 20 22 H Blood Pressure 106/63 146/54 H Pulse Oximetry 96 95 Oxygen Delivery Fraction of Inspired Oxygen 11/15/25 07:51 11/15/25 07:51 11/15/25 08:00 Temperature Pulse Rate 66 66 Respiratory Rate 15 Blood Pressure Pulse Oximetry 96 Oxygen Delivery Mechanical Ventilation Fraction of Inspired Oxygen 30 30 11/15/25 08:00 11/15/25 08:00 11/15/25 08:00 Temperature 98.5 F Pulse Rate 66 64 62 Respiratory Rate 19 71 H Blood Pressure 182/67 H Pulse Oximetry 97 Oxygen Delivery Fraction of Inspired Oxygen 11/15/25 09:00 11/15/25 09:03 11/15/25 10:00 Temperature 98.5 F 98.9 F Pulse Rate 74 66 70 Respiratory Rate 20 15 21 H Blood Pressure 187/81 H 165/98 H Pulse Oximetry 99 94 Oxygen Delivery Fraction of Inspired Oxygen 11/15/25 10:00 11/15/25 10:00 11/15/25 10:57 Temperature Pulse Rate 70 70 71 Respiratory Rate 21 H Blood Pressure Pulse Oximetry 94 Oxygen Delivery Mechanical Ventilation Fraction of Inspired Oxygen 30 11/15/25 11:00 11/15/25 11:02 11/15/25 12:00 Temperature 99.0 F Pulse Rate 74 65 Respiratory Rate 22 H Blood Pressure 175/71 H Pulse Oximetry 99 98 95 Oxygen Delivery Mechanical Ventilation Mechanical Ventilation Fraction of Inspired Oxygen 30 11/15/25 12:00 11/15/25 12:00 11/15/25 12:00 Temperature 98.8 F Pulse Rate 68 64 Respiratory Rate 19 19 Blood Pressure 174/82 H Pulse Oximetry 94 Oxygen Delivery Fraction of Inspired Oxygen 30 11/15/25 12:01 11/15/25 13:38 11/15/25 13:38 Temperature Pulse Rate 70 75 75 Respiratory Rate 15 Blood Pressure Pulse Oximetry 94 92 Oxygen Delivery Mechanical Ventilation Mechanical Ventilation Fraction of Inspired Oxygen 30 30 11/15/25 13:52 Temperature Pulse Rate 65 Respiratory Rate 15 Blood Pressure Pulse Oximetry Oxygen Delivery Fraction of Inspired Oxygen Intake/Output Intake/Output: Intake & Output 11/12/25 11/13/25 11/14/25 11/15/25 23:59 23:59 23:59 23:59 Intake Total 2785.8 2443.1 1380.4 1319 Output Total 4500 4300 1700 900 Balance -1714.2 -1856.9 -319.6 419 Meds/Results Medications: Active Medications Generic Name Dose Route Start Last Admin Trade Name Freq PRN Reason Stop Dose Admin Acetaminophen 650 mg 11/09/25 13:04 Acetaminophen 650 Mg Suppository RECTAL Q6H PRN Mild Pain (1-3) or Fever Acetaminophen 650 mg 11/09/25 15:06 11/11/25 01:38 Acetaminophen 325 Mg Tablet PO 650 mg Q6H PRN Administration Mild Pain (1-3) or Fever Albuterol/Ipratropium 3 ml 11/10/25 08:03 11/11/25 08:15 Ipratropium 0.5 Mg/Albuterol Sulfate 2.5 Mg (Base) Ampul.Neb 3 Ml INHALATION 3 ml Q6HRT PRN Administration Wheezing Albuterol/Ipratropium 3 ml 11/13/25 14:00 11/15/25 13:42 Ipratropium 0.5 Mg/Albuterol Sulfate 2.5 Mg (Base) Ampul.Neb 3 Ml INHALATION 3 ml Q6HRT YFN Administration Aspirin 325 mg 11/12/25 08:00 11/15/25 08:55 Aspirin 325 Mg Tablet FEED TUBE 325 mg DAILY@0800 YFN Administration Atorvastatin Calcium 20 mg 11/10/25 09:00 11/15/25 08:55 Atorvastatin 20 Mg Tablet PO 20 mg DAILY YFN Administration Baricitinib 2 mg 11/10/25 11:00 11/15/25 12:08 Baricitinib 2 Mg Tablet PO 11/23/25 11:01 2 mg DAILY@1100 YFN Administration Dexamethasone Sodium Phosphate 6 mg 11/09/25 13:00 11/15/25 12:09 Dexamethasone Sod Phos Inj 10 Mg/Ml 1 Ml Vial IV PUSH 11/18/25 13:01 6 mg Q24H YFN Administration Dextrose 12.5 gm 11/14/25 20:50 Dextrose 50% 25 Gm/50 Ml Syringe IV PUSH PRN PRN Hypoglycemia Protocol Enoxaparin Sodium 40 mg 11/09/25 15:00 11/15/25 08:55 Enoxaparin 40 Mg/0.4 Ml Syringe SUB-Q 40 mg DAILY YFN Administration Glucose 15 gm 11/14/25 20:50 Glucose Oral Gel 15 Gm Of Glucse In 37.5 Gm Tube PO PRN PRN Hypoglycemia Protocol Hydralazine HCl 5 mg 11/13/25 13:00 11/15/25 12:09 Hydralazine 5 Mg Tablet PO 5 mg QID YFN Administration Cefepime HCl 2 gm/ Sodium 50 mls @ 100 mls/hr 11/10/25 09:00 11/15/25 12:16 Chloride IVPB Infused Q12H YFN Infusion Fentanyl Citrate 2,500 mcg in 250 mls @ 5 mls/hr 11/10/25 13:05 11/15/25 12:00 Fentanyl 2,500 Mcg/Ns 250 Ml IV CONT 50 mcg/hr .Q50H YFN 5 mls/hr Protocol Titration 50 MCG/HR Dextrose 1,000 mls @ 100 mls/hr 11/14/25 20:50 Dextrose 5% 1,000 Ml IVPB PRN PRN Hypoglycemia Protocol Vancomycin HCl 1,500 mg in 500 mls @ 250 mls/hr 11/14/25 23:00 11/15/25 01:00 Vancomycin 1,500 Mg/Ns 500 Ml IVPB Infused Q24H YFN Infusion Levothyroxine Sodium 112 mcg 11/10/25 06:30 11/15/25 05:17 Levothyroxine Sodium 112 Mcg Tablet PO 112 mcg DAILY@0630 YFN Administration Levothyroxine Sodium 25 mcg 11/10/25 06:30 11/15/25 05:17 Levothyroxine Sodium 25 Mcg Tablet PO 25 mcg DAILY@0630 YFN Administration Multi-Ingred Cream/Lotion/Oil/Oint 1 applic 11/09/25 21:00 11/15/25 08:55 Mineral Oil/White Petrolatum Ointment EACH EYE 1 applic Q12HR YFN Administration Ondansetron HCl 4 mg 11/09/25 13:04 Ondansetron Inj 4 Mg/2 Ml Vial IV PUSH Q4H PRN Nausea Pantoprazole Sodium 40 mg 11/10/25 09:00 11/15/25 08:55 Pantoprazole Sodium Iv 40 Mg Vial IV PUSH 40 mg QAM YFN Administration Sodium Chloride 10 ml 11/12/25 14:00 11/15/25 12:15 Central Line Flush IV PUSH 10 ml Q8HR YFN Administration Sodium Chloride 10 ml 11/12/25 09:17 Central Line Flush IV PUSH PRN PRN with TPN bag changes Sodium Chloride 20 ml 11/12/25 09:17 Central Line Flush IV PUSH PRN PRN after blood draws Radiology Results: ITS Impressions Abdomen X-Ray 11/09/25 13:22 Impression: 1. No acute abnormality. Chest/Abdomen/Pelvis CT 11/10/25 14:11 IMPRESSION: 1. Satisfactory position of endotracheal tube and nasogastric tube. 2. Perihilar vascular congestion of both lungs. Platelike atelectasis of mid left lung. Partial atelectasis of lung bases on both sides. Minimal bilateral pleural effusion. 3. Distended gallbladder containing calcified gallstone. Atrophic kidneys. Chest X-Ray 11/14/25 08:08 IMPRESSION: 1. Persistent bilateral perihilar predominant airspace and interstitial opacities which could represent pneumonia or pulmonary edema. Labs Labs: Laboratory Results - last 24 hr 11/14/25 11/15/25 11/15/25 21:36 00:27 05:08 WBC RBC Hgb Hct MCV MCH MCHC RDW Plt Count MPV Immature Gran % (Auto) Neut % (Auto) Lymph % (Auto) [place] % (Auto) Eos % (Auto) Baso % (Auto) Lymph # (Auto) [place] # (Auto) Eos # (Auto) Baso # (Auto) Abs Immat Gran (auto) Absolute Neuts (auto) Absolute Nucleated RBC Nucleated RBC % Puncture Site ABG pH ABG pCO2 ABG pO2 ABG PO2/FiO2 Ratio ABG HCO3 ABG O2 Saturation ABG O2 Content ABG Base Excess A-a Gradient Oxyhemoglobin Total Hemoglobin O2 Delivery Device O2 Liters/Min Minute Volume Vent Rate Vent Mode FiO2 Tidal Volume PEEP Peak Inspir Pressure Pressure Support POC Capillary Glucose 157 H 164 H Vancomycin Trough 18.2 11/15/25 11/15/25 11/15/25 05:13 05:41 12:02 WBC 10.4 H RBC 3.58 L Hgb 10.3 L Hct 33.6 L MCV 93.9 MCH 28.8 MCHC 30.7 L RDW 15.0 H Plt Count 212 MPV 9.9 Immature Gran % (Auto) 4.8 H Neut % (Auto) 75.6 H Lymph % (Auto) 11.3 L [place] % (Auto) 6.4 Eos % (Auto) 1.7 Baso % (Auto) 0.2 Lymph # (Auto) 1.18 [place] # (Auto) 0.7 H Eos # (Auto) 0.2 Baso # (Auto) 0.0 Abs Immat Gran (auto) 0.50 H Absolute Neuts (auto) 7.9 H Absolute Nucleated RBC 0.000 Nucleated RBC % 0.0 Puncture Site Left radial ABG pH 7.426 ABG pCO2 54.1 H ABG pO2 83.0 ABG PO2/FiO2 Ratio 2.77 ABG HCO3 34.8 H ABG O2 Saturation 96.2 ABG O2 Content 16.5 ABG Base Excess 8.8 A-a Gradient 67.3 Oxyhemoglobin 95.1 Total Hemoglobin 12.3 O2 Delivery Device Ventilator O2 Liters/Min Not Reportable Minute Volume Not Reportable Vent Rate 14 Vent Mode Cmv FiO2 30 Tidal Volume 380 PEEP 5 Peak Inspir Pressure Not Reportable Pressure Support Not Reportable POC Capillary Glucose 111 H Vancomycin Trough Critical Care Time Critical Care Time Critical Care Time: Yes Time Type: Intermittent Initial evaluation, discuss w/ involved parties, attempting to gather old records: 15 minutes Documenting medical record: 5 minutes Review of results (EKG's, labs, imaging): 5 minutes Serial repeat bedside evaluation: 10 minutes Discussing case with multiple memebers of the care team and consultants: 5 minutes Total Critical Care Time: 40
[2025-11-15] MEDS: VANCOMYCIN 1,500 MG/NS 500 ML 1,500 MG/500 ML BAG 250 MG IVPB (22:49)
[2025-11-16] VITALS (43 sets, daily range): BP systolic 103–177; BP diastolic 48–90; PULSE 59–76; RESP 14–28; TEMP 36.8–37.1; O2SAT 90–96
[2025-11-16] MEDS: FENTANYL 2,500MCG/NS250ML(*CRX 2,500 MCG/250 ML BAG IV CONT (00:06)
[2025-11-16] MEDS: IPRATROPIUM 0.5 MG/ALBUTEROL SULFATE 2.5 MG (BASE) AMPUL.NEB 3 ML INHALATION ×6 (02:28→23:51)
[2025-11-16 04:17] LABS: Hematocrit 35.2 % (37.0-47.0); Hemoglobin 10.7 g/dL (12.0-15.0); Immature Granulocyte Percent A 4.7 % (0-0.5); Lymphocytes Absolute Auto 1.21 K/mm3 (0.9-3.2); Mean Corpuscular HGB Conc 30.4 g/dl (32-36); Mean Corpuscular Hemoglobin 28.7 pg (26-34); Mean Corpuscular Volume 94.4 fl (80-100); Nucleated Red Blood Cells Absolute Auto 0.000 K/mm3 (0.0-0.012); Nucleated Red Blood Cells Perc 0.0 % (0.0-0.2); Platelet Count Result 237 k/mm3 (150-375); Red Blood Count 3.73 M/mm3 (4.2-5.4); White Blood Count 11.5 K/mm3 (4.5-10.0)
[2025-11-16 04:37] LABS: Alanine Aminotransferase 23 U/L (6-35); Albumin Level 3.2 g/dL (3.5-5.1); Alkaline Phosphatase 81 U/L (38-126); Anion Gap 5 mmol/L (4-12); Aspartate Amino Transferase 27 U/L (14-36); Bilirubin,Total 0.5 mg/dL (0.2-1.3); Blood Urea Nitrogen 56 mg/dL (7-17); Calcium 8.7 mg/dL (8.4-10.2); Carbon Dioxide 35 mmol/L (22-30); Chloride 100 mmol/L (98-107); Estimated CRCL calculation 61 ml/min; Estimated Glomerular Filt Rate 49; Glucose 124 mg/dL (65-110); Magnesium 1.9 mg/dL (1.6-2.3); Potassium 4.5 mmol/L (3.4-5.0); Sodium 140 mmol/L (137-145); Total Protein 6.1 g/dL (6.3-8.2)
[2025-11-16 05:33] LABS: Alveolar/Arterial O2 Gradient 75.7 mmHg; Carboxyhemoglobin 0.7 % THb (0-2.0); Fractional Inspired Oxygen 30 %; HCO3 ABG 34.8 mEq/l (22.0-26.0); Methemoglobin ABG 0.1 %THb (0-1.5); Oxygen Content ABG 15.5 %vol (16.0-22.0); Oxygen Saturation ABG 96.0 % (95.0-100.0); PCO2 ABG 50.8 mmHg (35.0-45.0); PO2 ABG 78.5 mmHg (80.0-100.0); PO2 FiO2 Ratio Arterial Blood 2.62 %; Reduced Hemoglobin 4.9 %THb (0-5.0)
[2025-11-16 05:36] LABS: Arterial Blood Gas Ventilator rate 14 /MIN; Modified Allen's Test Pass; Site Drawn RIGHT RADIAL
[2025-11-16 05:37] LABS: Arterial Blood Gas Tidal Volume 380 ml
[2025-11-16] MEDS: LEVOTHYROXINE SODIUM 25 MCG TABLET PO (05:42)
[2025-11-16] MEDS: LEVOTHYROXINE SODIUM 112 MCG TABLET PO (05:42)
[2025-11-16] MEDS: CENTRAL LINE FLUSH 10 ML IV PUSH ×3 (05:42→21:20)
[2025-11-16] MEDS: FUROSEMIDE INJ 40 MG/4 ML VIAL IV PUSH (08:09)
[2025-11-16] MEDS: ACETAMINOPHEN 325 MG TABLET 650 MG PO (08:09)
[2025-11-16] MEDS: ENOXAPARIN 40 MG/0.4 ML SYRINGE SUB-Q (08:09)
[2025-11-16] MEDS: PANTOPRAZOLE SODIUM IV 40 MG VIAL IV PUSH (08:09)
[2025-11-16] MEDS: ATORVASTATIN 20 MG TABLET PO (08:10)
[2025-11-16] MEDS: ASPIRIN 325 MG TABLET FEED TUBE (08:10)
[2025-11-16] MEDS: MINERAL OIL/WHITE PETROLATUM OINTMENT 1 APPLIC EACH EYE ×2 (08:11→21:20)
[2025-11-16] MEDS: CEFEPIME 2 GM in SODIUM CHLORIDE 0.9% IV 50 ML 100 ML IVPB ×2 (08:12→21:18)
--- NOTE | 2025-11-16 10:47 | PCNFU ---
Nutrition Follow-Up Complete: Suboptimal Energy Intake as related to mechanical ventilation as evidenced by tube feedings. Meet estimated nutritional needs - Progressing with goal per tube feedings Goal: Pt current nutrition is Vital High Protein @ 50 ml/h with flushes 30 ml q 4 hours. Nutrition recommendation: Could increase tube feedings rate to 60 ml/h to better meet estimated protein energy needs Last recorded weight is 141.2 kg. Bowel Motility: +1 BM 11/14 Labs Reviewed: Hgb 10.7, Hct 35.2, Alb 3.2, BUN 56, Cre 1.11, Glu 124 Meds Noted: Fentanyl, decadron, cefepime, protonix Skin: No skin issues noted Additional Notes: Remains on mechanical vent, tolerating tube feedings Vital HP @ 50 ml/h to provide 1100 kcal, 96 g protein, 920 ml free water. Meeting needs @ 20 kcal/kg IBW, 1,7 g protein IBW. Could increase to 60 ml/h to provide 1320 kcal, 115 g protein, 1103 ml free water to meet estimated needs @ 24 kcal/kg IBW, 2 g protein IBW. Continue flushes @ 30 ml q 4 hours. Will monitor weight, labs, skin, diet orders, meds every Wednesday and Wednesday.
--- NOTE | 2025-11-16 11:44 | P.PNIM_ITS ---
Assessment and Plan Assessment and Plan (1) Acute hypercapnic respiratory failure: Code(s): J96.02 - Acute respiratory failure with hypercapnia Status: Acute Assessment and Plan: Patient presented with shortness of breath, hypoxia, was a DNR/DNI, EMS asked the patient if she would want to be intubated, patient was in respiratory distress and patient said yes. ABG showed hypercapnic and hypoxic respiratory failure -11/09: Patient intubated in the ER Multifactorial hypoxic and hypercarbic community-acquired pneumonia, COVID pneumonia, CHF, history hypoventilation syndrome -11/09: patient started on add azithromycin, ceftriaxone and vancomycin. Rocephin changed to cefepime with as patient is from skilled nursing. Vancomycin discontinued 11/12 Sputum and blood culture ordered and AND NEGATIVE TILL NOW CT chest 11/10 IMPRESSION: 1. Satisfactory position of endotracheal tube and nasogastric tube. 2. Perihilar vascular congestion of both lungs. Platelike atelectasis of mid left lung. Partial atelectasis of lung bases on both sides. Minimal bilateral pleural effusion. 3. Distended gallbladder containing calcified gallstone. Atrophic kidneys. ABG vent settings reviewed currently on 8 of PEEP and 50% FiO2 She needs more diuresis as she has significant volume overload. I will continue Lasix and increase to b.i.d. for Continue bronchodilators Treatment of COVID as below (2) Sepsis: Code(s): A41.9 - Sepsis, unspecified organism Status: Acute Assessment and Plan: Patient presented with acute shortness of breath, hypoxic/hypercapnic, intubated -chest x-ray shows likely pneumonia and/ or congestive heart failure -11/09: blood and sputum cultures negative till now ON CEfepime and Vanc monitor cultures (3) Pneumonia: Code(s): J18.9 - Pneumonia, unspecified organism Status: Acute Assessment and Plan: Continue antibiotics as above (4) COVID: Code(s): U07.1 - COVID-19 Status: Acute Assessment and Plan: Patient apparently is tested positive for COVID Continue dexamethasone remdesivir and baricitinib -airborne and contact precautions -continue isolation (5) COPD (chronic obstructive pulmonary disease): Code(s): J44.9 - Chronic obstructive pulmonary disease, unspecified Status: Acute Assessment and Plan: History of COPD/asthma, now with hypercapnic respiratory failure See above (6) Congestive heart failure: Code(s): I50.9 - Heart failure, unspecified Status: Acute Assessment and Plan: History of congestive heart failure Continue Lasix 10/29/2025 echocardiogram showed normal BiV function (7) Hypertension: Code(s): I10 - Essential (primary) hypertension Status: Acute Assessment and Plan: Hold all antihypertensives (8) Troponin I above reference range: Code(s): R79.89 - Other specified abnormal findings of blood chemistry Status: Acute Assessment and Plan: Elevated troponins could be related to respiratory distress, type 2 infarct Troponin trended down Aspirin statin (9) Hypothyroidism: Code(s): E03.9 - Hypothyroidism, unspecified Status: Acute Assessment and Plan: Continue levothyroxine Plan DVT prophylaxis: Lovenox Stress ulcer prophylaxis: Protonix Nutrition: Continue tube feeds Code Status: Full Code Subjective Date/time seen: 11/16/25 11:44 Interval history: Patient intubated at bedside Review of Systems Review of Systems: ROS unobtainable: Yes unobtainable due to endotracheal tube, unobtainable due to medical condition and unobtainable due to mental status Exam Narrative: General: Obese female intubated, sedated in no distress HEENT:? Pupils equal and reactive, sclera is clear, ETT in place Neck:? Short and thick neck Respiratory:? Coarse breath sounds bilaterally, decreased at bases, no wheezing, adequate air entry at this time Cardiac:? S1-S2 is normal, regular rate and rhythm Abdomen:? Soft, nontender, nondistended, morbidly obese, hypoactive bowel sounds Extremities:? Chronic venous stasis changes with [place] appearance, weak pedal pulses bilaterally, edema on the legs Neuro:? Patient is intubated, sedated with fentanyl, opens her eyes and follow simple commands with all 4 extremities Skin:? Skin is dry and flaky on lower extremities Psych:? Unable to assess at this time Objective Data Vital Signs Vital Signs: Vital Signs - 24 hr 11/15/25 12:00 11/15/25 12:00 11/15/25 12:00 Temperature 98.8 F Pulse Rate 68 Respiratory Rate 19 Blood Pressure 174/82 H Pulse Oximetry 95 94 Oxygen Delivery Mechanical Ventilation Fraction of Inspired Oxygen 30 11/15/25 12:00 11/15/25 12:00 11/15/25 12:01 Temperature Pulse Rate 64 69 70 Respiratory Rate 19 Blood Pressure Pulse Oximetry 94 Oxygen Delivery Mechanical Ventilation Fraction of Inspired Oxygen 30 11/15/25 13:00 11/15/25 13:38 11/15/25 13:38 Temperature 98.7 F Pulse Rate 85 75 75 Respiratory Rate 19 15 Blood Pressure 152/80 H Pulse Oximetry 99 92 Oxygen Delivery Mechanical Ventilation Fraction of Inspired Oxygen 30 11/15/25 13:52 11/15/25 14:00 11/15/25 14:00 Temperature Pulse Rate 65 84 84 Respiratory Rate 15 20 Blood Pressure Pulse Oximetry Oxygen Delivery Fraction of Inspired Oxygen 11/15/25 14:00 11/15/25 15:00 11/15/25 16:00 Temperature 98.8 F 98.7 F Pulse Rate 84 68 73 Respiratory Rate 20 17 20 Blood Pressure 157/81 H 159/72 H Pulse Oximetry 98 93 Oxygen Delivery Fraction of Inspired Oxygen 11/15/25 16:00 11/15/25 16:00 11/15/25 16:00 Temperature 98.7 F Pulse Rate 67 Respiratory Rate 18 Blood Pressure 172/67 H Pulse Oximetry 93 Oxygen Delivery Mechanical Ventilation Fraction of Inspired Oxygen 30 30 11/15/25 16:00 11/15/25 16:49 11/15/25 17:00 Temperature 98.8 F Pulse Rate 70 75 72 Respiratory Rate 21 H Blood Pressure 159/54 H Pulse Oximetry 91 91 Oxygen Delivery Mechanical Ventilation Fraction of Inspired Oxygen 30 11/15/25 18:00 11/15/25 18:00 11/15/25 18:00 Temperature 98.8 F Pulse Rate 68 68 68 Respiratory Rate 19 19 Blood Pressure 151/56 H Pulse Oximetry 94 Oxygen Delivery Fraction of Inspired Oxygen 11/15/25 19:00 11/15/25 20:00 11/15/25 20:00 Temperature 98.8 F Pulse Rate 63 77 Respiratory Rate 17 19 Blood Pressure 162/69 H Pulse Oximetry 95 93 Oxygen Delivery Mechanical Ventilation Fraction of Inspired Oxygen 30 11/15/25 20:00 11/15/25 20:00 11/15/25 20:00 Temperature 98.8 F Pulse Rate 65 77 Respiratory Rate 19 Blood Pressure 167/90 H Pulse Oximetry 93 Oxygen Delivery Fraction of Inspired Oxygen 30 11/15/25 20:17 11/15/25 20:18 11/15/25 20:28 Temperature Pulse Rate 67 68 65 Respiratory Rate 16 16 Blood Pressure Pulse Oximetry 94 Oxygen Delivery Mechanical Ventilation Fraction of Inspired Oxygen 30 11/15/25 21:00 11/15/25 22:00 11/15/25 22:00 Temperature 98.8 F Pulse Rate 74 67 67 Respiratory Rate 21 H 17 Blood Pressure 151/58 H Pulse Oximetry 94 Oxygen Delivery Fraction of Inspired Oxygen 11/15/25 22:00 11/15/25 23:00 11/15/25 23:31 Temperature 98.9 F 98.9 F Pulse Rate 67 67 67 Respiratory Rate 17 19 Blood Pressure 143/58 H 147/54 H Pulse Oximetry 92 96 95 Oxygen Delivery Mechanical Ventilation Fraction of Inspired Oxygen 30 11/16/25 00:00 11/16/25 00:00 11/16/25 00:00 Temperature 98.8 F Pulse Rate 64 Respiratory Rate 18 Blood Pressure 123/53 L Pulse Oximetry 95 95 Oxygen Delivery Mechanical Ventilation Fraction of Inspired Oxygen 30 30 11/16/25 00:00 11/16/25 00:06 11/16/25 00:06 Temperature Pulse Rate 64 65 65 Respiratory Rate 16 16 Blood Pressure Pulse Oximetry Oxygen Delivery Fraction of Inspired Oxygen 11/16/25 01:00 11/16/25 02:00 11/16/25 02:00 Temperature 98.7 F Pulse Rate 63 61 61 Respiratory Rate 17 19 Blood Pressure 120/52 L Pulse Oximetry 94 Oxygen Delivery Fraction of Inspired Oxygen 11/16/25 02:00 11/16/25 02:28 11/16/25 02:29 Temperature 98.7 F Pulse Rate 61 64 67 Respiratory Rate 19 18 Blood Pressure 103/48 L Pulse Oximetry 92 94 Oxygen Delivery Mechanical Ventilation Fraction of Inspired Oxygen 30 11/16/25 03:00 11/16/25 04:00 11/16/25 04:00 Temperature 98.5 F Pulse Rate 72 76 Respiratory Rate 17 16 Blood Pressure 120/49 L Pulse Oximetry 94 94 Oxygen Delivery Mechanical Ventilation Fraction of Inspired Oxygen 30 11/16/25 04:00 11/16/25 04:00 11/16/25 04:00 Temperature 98.3 F Pulse Rate 74 73 Respiratory Rate 17 Blood Pressure 138/51 L Pulse Oximetry 94 Oxygen Delivery Fraction of Inspired Oxygen 30 11/16/25 05:00 11/16/25 05:26 11/16/25 06:00 Temperature 98.3 F Pulse Rate 70 68 71 Respiratory Rate 19 19 Blood Pressure 136/82 Pulse Oximetry 94 95 Oxygen Delivery Mechanical Ventilation Fraction of Inspired Oxygen 30 11/16/25 06:00 11/16/25 06:00 11/16/25 07:00 Temperature 98.5 F 98.7 F Pulse Rate 71 71 67 Respiratory Rate 19 17 Blood Pressure 177/60 H 147/61 H Pulse Oximetry 96 96 Oxygen Delivery Fraction of Inspired Oxygen 11/16/25 08:00 11/16/25 08:00 11/16/25 08:00 Temperature Pulse Rate 67 Respiratory Rate 22 H Blood Pressure Pulse Oximetry 92 Oxygen Delivery Mechanical Ventilation Fraction of Inspired Oxygen 30 30 11/16/25 08:00 11/16/25 08:00 11/16/25 08:08 Temperature 98.8 F Pulse Rate 67 73 66 Respiratory Rate 22 H 20 Blood Pressure 144/72 H Pulse Oximetry 90 Oxygen Delivery Fraction of Inspired Oxygen 11/16/25 08:45 11/16/25 08:53 11/16/25 08:54 Temperature Pulse Rate 59 L 66 66 Respiratory Rate 14 14 Blood Pressure Pulse Oximetry 93 Oxygen Delivery Mechanical Ventilation Fraction of Inspired Oxygen 30 11/16/25 09:00 11/16/25 10:00 11/16/25 10:00 Temperature 98.7 F Pulse Rate 67 72 72 Respiratory Rate 18 17 Blood Pressure 151/55 H Pulse Oximetry 92 Oxygen Delivery Fraction of Inspired Oxygen 11/16/25 10:00 Temperature 98.7 F Pulse Rate 72 Respiratory Rate 17 Blood Pressure 136/89 Pulse Oximetry 93 Oxygen Delivery Fraction of Inspired Oxygen Intake/Output Intake/Output: Intake & Output 11/13/25 11/14/25 11/15/25 11/16/25 23:59 23:59 23:59 23:59 Intake Total 2443.1 1380.4 2220 1221.7 Output Total 4300 1700 1900 900 Balance -1856.9 -319.6 320 321.7 Meds/Results Medications: Active Medications Generic Name Dose Route Start Last Admin Trade Name Freq PRN Reason Stop Dose Admin Acetaminophen 650 mg 11/09/25 13:04 Acetaminophen 650 Mg Suppository RECTAL Q6H PRN Mild Pain (1-3) or Fever Acetaminophen 650 mg 11/09/25 15:06 11/16/25 08:09 Acetaminophen 325 Mg Tablet PO 650 mg Q6H PRN Administration Mild Pain (1-3) or Fever Albuterol/Ipratropium 3 ml 11/10/25 08:03 11/11/25 08:15 Ipratropium 0.5 Mg/Albuterol Sulfate 2.5 Mg (Base) Ampul.Neb 3 Ml INHALATION 3 ml Q6HRT PRN Administration Wheezing Albuterol/Ipratropium 3 ml 11/13/25 14:00 11/16/25 08:45 Ipratropium 0.5 Mg/Albuterol Sulfate 2.5 Mg (Base) Ampul.Neb 3 Ml INHALATION 3 ml Q6HRT YFN Administration Aspirin 325 mg 11/12/25 08:00 11/16/25 08:10 Aspirin 325 Mg Tablet FEED TUBE 325 mg DAILY@0800 YFN Administration Atorvastatin Calcium 20 mg 11/10/25 09:00 11/16/25 08:10 Atorvastatin 20 Mg Tablet PO 20 mg DAILY YFN Administration Baricitinib 2 mg 11/10/25 11:00 11/15/25 12:08 Baricitinib 2 Mg Tablet PO 11/23/25 11:01 2 mg DAILY@1100 YFN Administration Dexamethasone Sodium Phosphate 6 mg 11/09/25 13:00 11/15/25 12:09 Dexamethasone Sod Phos Inj 10 Mg/Ml 1 Ml Vial IV PUSH 11/18/25 13:01 6 mg Q24H YFN Administration Dextrose 12.5 gm 11/14/25 20:50 Dextrose 50% 25 Gm/50 Ml Syringe IV PUSH PRN PRN Hypoglycemia Protocol Enoxaparin Sodium 40 mg 11/09/25 15:00 11/16/25 08:09 Enoxaparin 40 Mg/0.4 Ml Syringe SUB-Q 40 mg DAILY YFN Administration Glucose 15 gm 11/14/25 20:50 Glucose Oral Gel 15 Gm Of Glucse In 37.5 Gm Tube PO PRN PRN Hypoglycemia Protocol Hydralazine HCl 10 mg 11/15/25 17:00 11/16/25 08:10 Hydralazine 10 Mg Tablet PO 10 mg QID YFN Administration Cefepime HCl 2 gm/ Sodium 50 mls @ 100 mls/hr 11/10/25 09:00 11/16/25 08:12 Chloride IVPB 100 mls/hr Q12H YFN Administration Fentanyl Citrate 2,500 mcg in 250 mls @ 0 mls/hr 11/10/25 13:05 11/16/25 10:00 Fentanyl 2,500 Mcg/Ns 250 Ml IV CONT 0 mcg/hr .Q0M YFN 0 mls/hr Protocol Titration 0 MCG/HR Dextrose 1,000 mls @ 100 mls/hr 11/14/25 20:50 Dextrose 5% 1,000 Ml IVPB PRN PRN Hypoglycemia Protocol Vancomycin HCl 1,500 mg in 500 mls @ 250 mls/hr 11/14/25 23:00 11/16/25 00:49 Vancomycin 1,500 Mg/Ns 500 Ml IVPB Infused Q24H YFN Infusion Levothyroxine Sodium 112 mcg 11/10/25 06:30 11/16/25 05:42 Levothyroxine Sodium 112 Mcg Tablet PO 112 mcg DAILY@0630 YFN Administration Levothyroxine Sodium 25 mcg 11/10/25 06:30 11/16/25 05:42 Levothyroxine Sodium 25 Mcg Tablet PO 25 mcg DAILY@0630 YFN Administration Multi-Ingred Cream/Lotion/Oil/Oint 1 applic 11/09/25 21:00 11/16/25 08:11 Mineral Oil/White Petrolatum Ointment EACH EYE 1 applic Q12HR YFN Administration Ondansetron HCl 4 mg 11/09/25 13:04 Ondansetron Inj 4 Mg/2 Ml Vial IV PUSH Q4H PRN Nausea Pantoprazole Sodium 40 mg 11/10/25 09:00 11/16/25 08:09 Pantoprazole Sodium Iv 40 Mg Vial IV PUSH 40 mg QAM YFN Administration Sodium Chloride 10 ml 11/12/25 14:00 11/16/25 05:42 Central Line Flush IV PUSH 10 ml Q8HR YFN Administration Sodium Chloride 10 ml 11/12/25 09:17 Central Line Flush IV PUSH PRN PRN with TPN bag changes Sodium Chloride 20 ml 11/12/25 09:17 Central Line Flush IV PUSH PRN PRN after blood draws Radiology Results: ITS Impressions Abdomen X-Ray 11/09/25 13:22 Impression: 1. No acute abnormality. Chest/Abdomen/Pelvis CT 11/10/25 14:11 IMPRESSION: 1. Satisfactory position of endotracheal tube and nasogastric tube. 2. Perihilar vascular congestion of both lungs. Platelike atelectasis of mid left lung. Partial atelectasis of lung bases on both sides. Minimal bilateral pleural effusion. 3. Distended gallbladder containing calcified gallstone. Atrophic kidneys. Chest X-Ray 11/16/25 08:04 IMPRESSION: 1. Slight interval decrease in bilateral perihilar predominant interstitial and airspace opacities consistent with improving pulmonary edema and/or pneumonia. Labs Labs: Laboratory Results - last 24 hr 11/15/25 11/15/25 11/16/25 12:02 18:32 00:05 WBC RBC Hgb Hct MCV MCH MCHC RDW Plt Count MPV Immature Gran % (Auto) Neut % (Auto) Lymph % (Auto) Island % (Auto) Eos % (Auto) Baso % (Auto) Lymph # (Auto) [place] # (Auto) Eos # (Auto) Baso # (Auto) Abs Immat Gran (auto) Absolute Neuts (auto) Absolute Nucleated RBC Nucleated RBC % Puncture Site ABG pH ABG pCO2 ABG pO2 ABG PO2/FiO2 Ratio ABG HCO3 ABG O2 Saturation ABG O2 Content ABG Base Excess A-a Gradient Oxyhemoglobin Carboxyhemoglobin Methemoglobin Reduced Hemoglobin Total Hemoglobin O2 Delivery Device O2 Liters/Min Minute Volume Vent Rate Vent Mode FiO2 Tidal Volume PEEP Peak Inspir Pressure Pressure Support Sodium Potassium Chloride Carbon Dioxide Anion Gap BUN Creatinine Estim Creat Clear Calc Estimated GFR Glucose POC Capillary Glucose 111 H 204 H 150 H Calcium Magnesium Total Bilirubin AST ALT Alkaline Phosphatase Total Protein Albumin 11/16/25 11/16/25 04:09 05:13 WBC 11.5 H RBC 3.73 L Hgb 10.7 L Hct 35.2 L MCV 94.4 MCH 28.7 MCHC 30.4 L RDW 15.0 H Plt Count 237 MPV 10.3 Immature Gran % (Auto) 4.7 H Neut % (Auto) 75.7 H Lymph % (Auto) 10.5 L [place] % (Auto) 6.6 Eos % (Auto) 2.2 Baso % (Auto) 0.3 Lymph # (Auto) 1.21 [place] # (Auto) 0.8 H Eos # (Auto) 0.3 Baso # (Auto) 0.0 Abs Immat Gran (auto) 0.54 H Absolute Neuts (auto) 8.7 H Absolute Nucleated RBC 0.000 Nucleated RBC % 0.0 Puncture Site Right radial ABG pH 7.453 H ABG pCO2 50.8 H ABG pO2 78.5 L ABG PO2/FiO2 Ratio 2.62 ABG HCO3 34.8 H ABG O2 Saturation 96.0 ABG O2 Content 15.5 L ABG Base Excess 9.4 A-a Gradient 75.7 Oxyhemoglobin 94.3 Carboxyhemoglobin 0.7 Methemoglobin 0.1 Reduced Hemoglobin 4.9 Total Hemoglobin 11.6 L O2 Delivery Device Ventilator O2 Liters/Min Not Reportable Minute Volume Not Reportable Vent Rate 14 Vent Mode Cmv FiO2 30 Tidal Volume 380 PEEP 5 Peak Inspir Pressure Not Reportable Pressure Support Not Reportable Sodium 140 Potassium 4.5 Chloride 100 Carbon Dioxide 35 H Anion Gap 5 BUN 56 H Creatinine 1.11 H Estim Creat Clear Calc 61 Estimated GFR 49 L Glucose 124 H POC Capillary Glucose Calcium 8.7 Magnesium 1.9 Total Bilirubin 0.5 AST 27 ALT 23 Alkaline Phosphatase 81 Total Protein 6.1 L Albumin 3.2 L Quality VTE Prophylaxis VTE prophylaxis: pharmacologic ordered
[2025-11-16 11:46] LABS: Alveolar/Arterial O2 Gradient 173.7 mmHg; Fractional Inspired Oxygen 40 %; HCO3 ABG 30.9 mEq/l (22.0-26.0); Oxygen Content ABG 15.4 %vol (16.0-22.0); Oxygen Saturation ABG 94.3 % (95.0-100.0); PCO2 ABG 40.5 mmHg (35.0-45.0); PO2 ABG 64.9 mmHg (80.0-100.0); PO2 FiO2 Ratio Arterial Blood 1.62 %
[2025-11-16 11:49] LABS: Arterial Blood Gas Ventilator rate 13 /MIN; Modified Allen's Test Pass; Site Drawn RIGHT RADIAL
[2025-11-16 11:50] LABS: Arterial Blood Gas Tidal Volume 380 ml
[2025-11-16] MEDS: dexAMETHasone SOD PHOS INJ 10 MG/ML 1 ML VIAL 6 MG IV PUSH ×2 (12:51→21:18)
[2025-11-16] MEDS: BARICITINIB 2 MG TABLET PO (12:51)
--- NOTE | 2025-11-16 12:59 | P.PNINT_ITS ---
Assessment and Plan Assessment and Plan (1) Acute hypercapnic respiratory failure: Code(s): J96.02 - Acute respiratory failure with hypercapnia Status: Acute (2) COVID: Code(s): U07.1 - COVID-19 Status: Acute (3) Pneumonia: Code(s): J18.9 - Pneumonia, unspecified organism Status: Acute (4) COPD (chronic obstructive pulmonary disease): Code(s): J44.9 - Chronic obstructive pulmonary disease, unspecified Status: Acute (5) Obesity: Code(s): E66.9 - Obesity, unspecified Status: Acute Plan 1. Neurologically: Patient is somnolent arousable currently on sedation interruption. 2. Cardiovascular: She still has frequent PVCs. Blood pressure still elevated so will increase hydralazine. 3. Respiratory: X-ray improved, patient has no phlegm, we have diuresed her as well but her wheezing is worse today which is affecting her ability to wean. Will increase steroids and frequency of nebulizer treatments. She is on cefepime and vancomycin. She is not behaving like having COVID pneumonia since her infiltrates are more consistent with bacterial pneumonia. Will discontinue Miguel. 4. GI: Tolerating tube feedings and having bowel movements. Will add MiraLax. Continue prophylaxis with pantoprazole. LFTs are normal. 5. and Renal: BUN and creatinine overall stable. She is diuresing well with Lasix today. Edema is better. 6. Endocrine: Most glucose are below 200. Continue present regimen. Continue Synthroid for hypothyroidism 7. Hematologically: CBC overall stable. 8. DVT prophylaxis: Sequentials and Lovenox 9. Id: Continue antibiotics for at least 7 days for bacterial pneumonia. Will discontinue Miguel. Subjective Date/time seen: 11/16/25 12:59 Interval history: Patient has been diuresed for the last couple of days. Chest x-ray today is better with minimal residual infiltrate. Exam Narrative: She some on per arousable Const: General: comfortable HENMT: Mouth: Yes dry mucous membranes Eyes: General: appearance normal, both eyes and all related structures Neck: Neck: no JVD Resp: Auscultation: wheezes Other: Some tachypnea noticed Cardio: Other: Irregular heart rate GI: GI Palp: Yes Soft to palpation Auscultation: normal bowel sounds Urinary Catheter: Urinary Catheter: patent and draining Skin: General skin exam: normal color Neuro: Other: Somnolent and weak but nonfocal Extrem: General: edema Objective Data Vital Signs Vital Signs: Vital Signs - 24 hr 11/15/25 13:00 11/15/25 13:38 11/15/25 13:38 Temperature 98.7 F Pulse Rate 85 75 75 Respiratory Rate 19 15 Blood Pressure 152/80 H Pulse Oximetry 99 92 Oxygen Delivery Mechanical Ventilation Fraction of Inspired Oxygen 30 11/15/25 13:52 11/15/25 14:00 11/15/25 14:00 Temperature Pulse Rate 65 84 84 Respiratory Rate 15 20 Blood Pressure Pulse Oximetry Oxygen Delivery Fraction of Inspired Oxygen 11/15/25 14:00 11/15/25 15:00 11/15/25 16:00 Temperature 98.8 F 98.7 F Pulse Rate 84 68 73 Respiratory Rate 20 17 20 Blood Pressure 157/81 H 159/72 H Pulse Oximetry 98 93 Oxygen Delivery Fraction of Inspired Oxygen 11/15/25 16:00 11/15/25 16:00 11/15/25 16:00 Temperature 98.7 F Pulse Rate 67 Respiratory Rate 18 Blood Pressure 172/67 H Pulse Oximetry 93 Oxygen Delivery Mechanical Ventilation Fraction of Inspired Oxygen 30 30 11/15/25 16:00 11/15/25 16:49 11/15/25 17:00 Temperature 98.8 F Pulse Rate 70 75 72 Respiratory Rate 21 H Blood Pressure 159/54 H Pulse Oximetry 91 91 Oxygen Delivery Mechanical Ventilation Fraction of Inspired Oxygen 30 11/15/25 18:00 11/15/25 18:00 11/15/25 18:00 Temperature 98.8 F Pulse Rate 68 68 68 Respiratory Rate 19 19 Blood Pressure 151/56 H Pulse Oximetry 94 Oxygen Delivery Fraction of Inspired Oxygen 11/15/25 19:00 11/15/25 20:00 11/15/25 20:00 Temperature 98.8 F Pulse Rate 63 77 Respiratory Rate 17 19 Blood Pressure 162/69 H Pulse Oximetry 95 93 Oxygen Delivery Mechanical Ventilation Fraction of Inspired Oxygen 30 11/15/25 20:00 11/15/25 20:00 11/15/25 20:00 Temperature 98.8 F Pulse Rate 65 77 Respiratory Rate 19 Blood Pressure 167/90 H Pulse Oximetry 93 Oxygen Delivery Fraction of Inspired Oxygen 30 11/15/25 20:17 11/15/25 20:18 11/15/25 20:28 Temperature Pulse Rate 67 68 65 Respiratory Rate 16 16 Blood Pressure Pulse Oximetry 94 Oxygen Delivery Mechanical Ventilation Fraction of Inspired Oxygen 30 11/15/25 21:00 11/15/25 22:00 11/15/25 22:00 Temperature 98.8 F Pulse Rate 74 67 67 Respiratory Rate 21 H 17 Blood Pressure 151/58 H Pulse Oximetry 94 Oxygen Delivery Fraction of Inspired Oxygen 11/15/25 22:00 11/15/25 23:00 11/15/25 23:31 Temperature 98.9 F 98.9 F Pulse Rate 67 67 67 Respiratory Rate 17 19 Blood Pressure 143/58 H 147/54 H Pulse Oximetry 92 96 95 Oxygen Delivery Mechanical Ventilation Fraction of Inspired Oxygen 30 11/16/25 00:00 11/16/25 00:00 11/16/25 00:00 Temperature 98.8 F Pulse Rate 64 Respiratory Rate 18 Blood Pressure 123/53 L Pulse Oximetry 95 95 Oxygen Delivery Mechanical Ventilation Fraction of Inspired Oxygen 30 30 11/16/25 00:00 11/16/25 00:06 11/16/25 00:06 Temperature Pulse Rate 64 65 65 Respiratory Rate 16 16 Blood Pressure Pulse Oximetry Oxygen Delivery Fraction of Inspired Oxygen 11/16/25 01:00 11/16/25 02:00 11/16/25 02:00 Temperature 98.7 F Pulse Rate 63 61 61 Respiratory Rate 17 19 Blood Pressure 120/52 L Pulse Oximetry 94 Oxygen Delivery Fraction of Inspired Oxygen 11/16/25 02:00 11/16/25 02:28 11/16/25 02:29 Temperature 98.7 F Pulse Rate 61 64 67 Respiratory Rate 19 18 Blood Pressure 103/48 L Pulse Oximetry 92 94 Oxygen Delivery Mechanical Ventilation Fraction of Inspired Oxygen 30 11/16/25 03:00 11/16/25 04:00 11/16/25 04:00 Temperature 98.5 F Pulse Rate 72 76 Respiratory Rate 17 16 Blood Pressure 120/49 L Pulse Oximetry 94 94 Oxygen Delivery Mechanical Ventilation Fraction of Inspired Oxygen 30 11/16/25 04:00 11/16/25 04:00 11/16/25 04:00 Temperature 98.3 F Pulse Rate 74 73 Respiratory Rate 17 Blood Pressure 138/51 L Pulse Oximetry 94 Oxygen Delivery Fraction of Inspired Oxygen 30 11/16/25 05:00 11/16/25 05:26 11/16/25 06:00 Temperature 98.3 F Pulse Rate 70 68 71 Respiratory Rate 19 19 Blood Pressure 136/82 Pulse Oximetry 94 95 Oxygen Delivery Mechanical Ventilation Fraction of Inspired Oxygen 30 11/16/25 06:00 11/16/25 06:00 11/16/25 07:00 Temperature 98.5 F 98.7 F Pulse Rate 71 71 67 Respiratory Rate 19 17 Blood Pressure 177/60 H 147/61 H Pulse Oximetry 96 96 Oxygen Delivery Fraction of Inspired Oxygen 11/16/25 08:00 11/16/25 08:00 11/16/25 08:00 Temperature Pulse Rate 67 Respiratory Rate 22 H Blood Pressure Pulse Oximetry 92 Oxygen Delivery Mechanical Ventilation Fraction of Inspired Oxygen 30 30 11/16/25 08:00 11/16/25 08:00 11/16/25 08:08 Temperature 98.8 F Pulse Rate 67 73 66 Respiratory Rate 22 H 20 Blood Pressure 144/72 H Pulse Oximetry 90 Oxygen Delivery Fraction of Inspired Oxygen 11/16/25 08:45 11/16/25 08:53 11/16/25 08:54 Temperature Pulse Rate 59 L 66 66 Respiratory Rate 14 14 Blood Pressure Pulse Oximetry 93 Oxygen Delivery Mechanical Ventilation Fraction of Inspired Oxygen 30 11/16/25 09:00 11/16/25 10:00 11/16/25 10:00 Temperature 98.7 F Pulse Rate 67 72 72 Respiratory Rate 18 17 Blood Pressure 151/55 H Pulse Oximetry 92 Oxygen Delivery Fraction of Inspired Oxygen 11/16/25 10:00 11/16/25 11:00 11/16/25 12:00 Temperature 98.7 F 98.7 F Pulse Rate 72 66 Respiratory Rate 17 18 Blood Pressure 136/89 145/67 H Pulse Oximetry 93 90 94 Oxygen Delivery Mechanical Ventilation Fraction of Inspired Oxygen 40 11/16/25 12:00 11/16/25 12:00 11/16/25 12:00 Temperature 98.8 F Pulse Rate 66 66 Respiratory Rate 19 19 Blood Pressure 146/68 H Pulse Oximetry 93 Oxygen Delivery Fraction of Inspired Oxygen 40 Intake/Output Intake/Output: Intake & Output 11/13/25 11/14/25 11/15/25 11/16/25 23:59 23:59 23:59 23:59 Intake Total 2443.1 1380.4 2220 1271.7 Output Total 4300 1700 1900 2950 Balance -1856.9 -319.6 320 -1678.3 Meds/Results Medications: Active Medications Generic Name Dose Route Start Last Admin Trade Name Freq PRN Reason Stop Dose Admin Acetaminophen 650 mg 11/09/25 13:04 Acetaminophen 650 Mg Suppository RECTAL Q6H PRN Mild Pain (1-3) or Fever Acetaminophen 650 mg 11/09/25 15:06 11/16/25 08:09 Acetaminophen 325 Mg Tablet PO 650 mg Q6H PRN Administration Mild Pain (1-3) or Fever Albuterol/Ipratropium 3 ml 11/10/25 08:03 11/11/25 08:15 Ipratropium 0.5 Mg/Albuterol Sulfate 2.5 Mg (Base) Ampul.Neb 3 Ml INHALATION 3 ml Q6HRT PRN Administration Wheezing Albuterol/Ipratropium 3 ml 11/16/25 16:00 Ipratropium 0.5 Mg/Albuterol Sulfate 2.5 Mg (Base) Ampul.Neb 3 Ml INHALATION Q4HRT YFN Aspirin 325 mg 11/12/25 08:00 11/16/25 08:10 Aspirin 325 Mg Tablet FEED TUBE 325 mg DAILY@0800 YFN Administration Atorvastatin Calcium 20 mg 11/10/25 09:00 11/16/25 08:10 Atorvastatin 20 Mg Tablet PO 20 mg DAILY YFN Administration Dexamethasone Sodium Phosphate 6 mg 11/16/25 21:00 Dexamethasone Sod Phos Inj 10 Mg/Ml 1 Ml Vial IV PUSH 11/17/25 21:01 Q12HR [facility] Dextrose 12.5 gm 11/14/25 20:50 Dextrose 50% 25 Gm/50 Ml Syringe IV PUSH PRN PRN Hypoglycemia Protocol Enoxaparin Sodium 40 mg 11/09/25 15:00 11/16/25 08:09 Enoxaparin 40 Mg/0.4 Ml Syringe SUB-Q 40 mg DAILY YFN Administration Glucose 15 gm 11/14/25 20:50 Glucose Oral Gel 15 Gm Of Glucse In 37.5 Gm Tube PO PRN PRN Hypoglycemia Protocol Hydralazine HCl 50 mg 11/16/25 14:00 Hydralazine Hcl 50 Mg Tablet PO Q8HR [facility] Cefepime HCl 2 gm/ Sodium 50 mls @ 100 mls/hr 11/10/25 09:00 11/16/25 08:45 Chloride IVPB Infused Q12H YFN Infusion Fentanyl Citrate 2,500 mcg in 250 mls @ 0 mls/hr 11/10/25 13:05 11/16/25 12:00 Fentanyl 2,500 Mcg/Ns 250 Ml IV CONT 0 mcg/hr .Q0M YFN 0 mls/hr Protocol Titration 0 MCG/HR Dextrose 1,000 mls @ 100 mls/hr 11/14/25 20:50 Dextrose 5% 1,000 Ml IVPB PRN PRN Hypoglycemia Protocol Vancomycin HCl 1,500 mg in 500 mls @ 250 mls/hr 11/14/25 23:00 11/16/25 00:49 Vancomycin 1,500 Mg/Ns 500 Ml IVPB Infused Q24H YFN Infusion Levothyroxine Sodium 112 mcg 11/10/25 06:30 11/16/25 05:42 Levothyroxine Sodium 112 Mcg Tablet PO 112 mcg DAILY@0630 YFN Administration Levothyroxine Sodium 25 mcg 11/10/25 06:30 11/16/25 05:42 Levothyroxine Sodium 25 Mcg Tablet PO 25 mcg DAILY@0630 YFN Administration Multi-Ingred Cream/Lotion/Oil/Oint 1 applic 11/09/25 21:00 11/16/25 08:11 Mineral Oil/White Petrolatum Ointment EACH EYE 1 applic Q12HR YFN Administration Ondansetron HCl 4 mg 11/09/25 13:04 Ondansetron Inj 4 Mg/2 Ml Vial IV PUSH Q4H PRN Nausea Pantoprazole Sodium 40 mg 11/10/25 09:00 11/16/25 08:09 Pantoprazole Sodium Iv 40 Mg Vial IV PUSH 40 mg QAM YFN Administration Sodium Chloride 10 ml 11/12/25 14:00 11/16/25 12:58 Central Line Flush IV PUSH 10 ml Q8HR YFN Administration Sodium Chloride 10 ml 11/12/25 09:17 Central Line Flush IV PUSH PRN PRN with TPN bag changes Sodium Chloride 20 ml 11/12/25 09:17 Central Line Flush IV PUSH PRN PRN after blood draws Radiology Results: ITS Impressions Abdomen X-Ray 11/09/25 13:22 Impression: 1. No acute abnormality. Chest/Abdomen/Pelvis CT 11/10/25 14:11 IMPRESSION: 1. Satisfactory position of endotracheal tube and nasogastric tube. 2. Perihilar vascular congestion of both lungs. Platelike atelectasis of mid left lung. Partial atelectasis of lung bases on both sides. Minimal bilateral pleural effusion. 3. Distended gallbladder containing calcified gallstone. Atrophic kidneys. Chest X-Ray 11/16/25 08:04 IMPRESSION: 1. Slight interval decrease in bilateral perihilar predominant interstitial and airspace opacities consistent with improving pulmonary edema and/or pneumonia. Labs Labs: Laboratory Results - last 24 hr 11/15/25 11/15/25 11/16/25 12:02 18:32 00:05 WBC RBC Hgb Hct MCV MCH MCHC RDW Plt Count MPV Immature Gran % (Auto) Neut % (Auto) Lymph % (Auto) [place] % (Auto) Eos % (Auto) Baso % (Auto) Lymph # (Auto) [place] # (Auto) Eos # (Auto) Baso # (Auto) Abs Immat Gran (auto) Absolute Neuts (auto) Absolute Nucleated RBC Nucleated RBC % Puncture Site ABG pH ABG pCO2 ABG pO2 ABG PO2/FiO2 Ratio ABG HCO3 ABG O2 Saturation ABG O2 Content ABG Base Excess A-a Gradient Oxyhemoglobin Carboxyhemoglobin Methemoglobin Reduced Hemoglobin Total Hemoglobin O2 Delivery Device O2 Liters/Min Minute Volume Vent Rate Vent Mode FiO2 Tidal Volume PEEP Peak Inspir Pressure Pressure Support Sodium Potassium Chloride Carbon Dioxide Anion Gap BUN Creatinine Estim Creat Clear Calc Estimated GFR Glucose POC Capillary Glucose 111 H 204 H 150 H Calcium Magnesium Total Bilirubin AST ALT Alkaline Phosphatase Total Protein Albumin 11/16/25 11/16/25 11/16/25 04:09 05:13 11:42 WBC 11.5 H RBC 3.73 L Hgb 10.7 L Hct 35.2 L MCV 94.4 MCH 28.7 MCHC 30.4 L RDW 15.0 H Plt Count 237 MPV 10.3 Immature Gran % (Auto) 4.7 H Neut % (Auto) 75.7 H Lymph % (Auto) 10.5 L [place] % (Auto) 6.6 Eos % (Auto) 2.2 Baso % (Auto) 0.3 Lymph # (Auto) 1.21 [place] # (Auto) 0.8 H Eos # (Auto) 0.3 Baso # (Auto) 0.0 Abs Immat Gran (auto) 0.54 H Absolute Neuts (auto) 8.7 H Absolute Nucleated RBC 0.000 Nucleated RBC % 0.0 Puncture Site Right radial Right radial ABG pH 7.453 H 7.501 H ABG pCO2 50.8 H 40.5 ABG pO2 78.5 L 64.9 L ABG PO2/FiO2 Ratio 2.62 1.62 ABG HCO3 34.8 H 30.9 H ABG O2 Saturation 96.0 94.3 L ABG O2 Content 15.5 L 15.4 L ABG Base Excess 9.4 7.2 A-a Gradient 75.7 173.7 Oxyhemoglobin 94.3 92.0 Carboxyhemoglobin 0.7 Methemoglobin 0.1 Reduced Hemoglobin 4.9 Total Hemoglobin 11.6 L 11.9 L O2 Delivery Device Ventilator Ventilator O2 Liters/Min Not Reportable Not Reportable Minute Volume Not Reportable Not Reportable Vent Rate 14 13 Vent Mode Cmv Cmv FiO2 30 40 Tidal Volume 380 380 PEEP 5 5 Peak Inspir Pressure Not Reportable Not Reportable Pressure Support Not Reportable Not Reportable Sodium 140 Potassium 4.5 Chloride 100 Carbon Dioxide 35 H Anion Gap 5 BUN 56 H Creatinine 1.11 H Estim Creat Clear Calc 61 Estimated GFR 49 L Glucose 124 H POC Capillary Glucose Calcium 8.7 Magnesium 1.9 Total Bilirubin 0.5 AST 27 ALT 23 Alkaline Phosphatase 81 Total Protein 6.1 L Albumin 3.2 L Critical Care Time Critical Care Time Critical Care Time: Yes Time Type: Intermittent Initial evaluation, discuss w/ involved parties, attempting to gather old records: 15 minutes Documenting medical record: 10 minutes Review of results (EKG's, labs, imaging): 5 minutes Serial repeat bedside evaluation: 10 minutes Discussing case with multiple memebers of the care team and consultants: 10 minutes Total Critical Care Time: 50
[2025-11-17] VITALS (50 sets, daily range): BP systolic 115–158; BP diastolic 52–110; PULSE 58–110; RESP 13–24; TEMP 36.7–37.2; O2SAT 91–98
[2025-11-17] MEDS: IPRATROPIUM 0.5 MG/ALBUTEROL SULFATE 2.5 MG (BASE) AMPUL.NEB 3 ML INHALATION ×6 (04:04→23:18)
[2025-11-17 04:51] LABS: Alveolar/Arterial O2 Gradient 147.3 mmHg; Carboxyhemoglobin 0.6 % THb (0-2.0); Fractional Inspired Oxygen 40 %; HCO3 ABG 30.4 mEq/l (22.0-26.0); Methemoglobin ABG 0.1 %THb (0-1.5); Oxygen Content ABG 16.1 %vol (16.0-22.0); Oxygen Saturation ABG 96.8 % (95.0-100.0); PCO2 ABG 45.0 mmHg (35.0-45.0); PO2 ABG 86.2 mmHg (80.0-100.0); PO2 FiO2 Ratio Arterial Blood 2.15 %; Reduced Hemoglobin 3.9 %THb (0-5.0)
[2025-11-17 04:52] LABS: Arterial Blood Gas Tidal Volume 380 ml; Arterial Blood Gas Ventilator rate 13 /MIN; Modified Allen's Test Unable to perform; Site Drawn RIGHT RADIAL
[2025-11-17] MEDS: LEVOTHYROXINE SODIUM 112 MCG TABLET PO (06:24)
[2025-11-17] MEDS: CENTRAL LINE FLUSH 10 ML IV PUSH ×3 (06:24→20:56)
[2025-11-17] MEDS: LEVOTHYROXINE SODIUM 25 MCG TABLET PO (06:24)
[2025-11-17] MEDS: VANCOMYCIN 1,250 MG/NS 250 ML 1,250 MG/250 ML BAG 166.67 MG IVPB (06:25)
[2025-11-17 07:02] LABS: Albumin Level 3.3 g/dL (3.5-5.1); Anion Gap 4 mmol/L (4-12); Blood Urea Nitrogen 56 mg/dL (7-17); Calcium 8.7 mg/dL (8.4-10.2); Carbon Dioxide 36 mmol/L (22-30); Chloride 97 mmol/L (98-107); Estimated CRCL calculation 59 ml/min; Estimated Glomerular Filt Rate 48; Glucose 154 mg/dL (65-110); Potassium 4.7 mmol/L (3.4-5.0); Sodium 137 mmol/L (137-145)
[2025-11-17] MEDS: CEFEPIME 2 GM in SODIUM CHLORIDE 0.9% IV 50 ML 100 ML IVPB ×2 (09:07→20:56)
[2025-11-17] MEDS: MINERAL OIL/WHITE PETROLATUM OINTMENT 1 APPLIC EACH EYE ×2 (09:08→20:57)
[2025-11-17] MEDS: ATORVASTATIN 20 MG TABLET PO (09:08)
[2025-11-17] MEDS: ENOXAPARIN 40 MG/0.4 ML SYRINGE SUB-Q (09:08)
[2025-11-17] MEDS: ASPIRIN 325 MG TABLET FEED TUBE (09:08)
[2025-11-17] MEDS: PANTOPRAZOLE SODIUM IV 40 MG VIAL IV PUSH (09:08)
[2025-11-17] MEDS: dexAMETHasone SOD PHOS INJ 10 MG/ML 1 ML VIAL 6 MG IV PUSH ×2 (09:08→20:56)
[2025-11-17 09:23] LABS: Hematocrit 35.5 % (37.0-47.0); Hemoglobin 11.0 g/dL (12.0-15.0); Immature Granulocyte Percent A 4.2 % (0-0.5); Lymphocytes Absolute Auto 0.69 K/mm3 (0.9-3.2); Mean Corpuscular HGB Conc 31.0 g/dl (32-36); Mean Corpuscular Hemoglobin 28.5 pg (26-34); Mean Corpuscular Volume 92.0 fl (80-100); Nucleated Red Blood Cells Absolute Auto 0.000 K/mm3 (0.0-0.012); Nucleated Red Blood Cells Perc 0.0 % (0.0-0.2); Platelet Count Result 278 k/mm3 (150-375); Red Blood Count 3.86 M/mm3 (4.2-5.4); White Blood Count 14.1 K/mm3 (4.5-10.0)
--- NOTE | 2025-11-17 11:27 | P.PNINT_ITS ---
Assessment and Plan Assessment and Plan (1) Acute hypercapnic respiratory failure: Code(s): J96.02 - Acute respiratory failure with hypercapnia Status: Acute (2) COVID: Code(s): U07.1 - COVID-19 Status: Acute (3) Pneumonia: Code(s): J18.9 - Pneumonia, unspecified organism Status: Acute (4) COPD (chronic obstructive pulmonary disease): Code(s): J44.9 - Chronic obstructive pulmonary disease, unspecified Status: Acute Plan 1. Neurologically: Patient is following commands, she is weak and debilitated. 2. Cardiovascular she still has frequent PVCs, her blood pressure has been moderately elevated despite of increasing her hydralazine 3. Respiratory: She seems to be tolerating pressure support trials her today although at higher pressures. She still has some bronchospasms for which we increased steroids and the frequency of nebulizer treatments. She has diuresed well and her last chest x-ray was significantly better so my expectation is for her to be liberated from mechanical ventilation soon. 4. GI: She is tolerating tube feedings. Will increase MiraLax to twice a day and add Colace. Continue GI prophylaxis with pantoprazole 5. and Renal: Electrolytes are overall balanced. Her urine was output was very good with Lasix. Her BUN and creatinine have not changed much. 6. Endocrine: Blood sugars are overall better. 7. DVT prophylaxis: Lovenox and sequentials. 8. Hematologically: White count has increased tone which in part could be related to increment on the steroid dose. 9. Id: She has received 8 days of antibiotics, she is afebrile but her white blood cell count did increase some. She has mild secretions. Will consider discontinuation of antibiotic soon Subjective Date/time seen: 11/17/25 11:27 Interval history: Continues to be tolerating pressure support trials better today Exam Narrative: She is awake and interactive Const: General: no acute distress HENMT: Mouth: Yes dry mucous membranes Eyes: General: appearance normal, both eyes and all related structures Neck: Neck: no JVD Resp: Auscultation: rhonchi and wheezes Cardio: Rate: regular rate GI: GI Palp: Yes Soft to palpation Auscultation: normal bowel sounds Urinary Catheter: Urinary Catheter: patent and draining Skin: General skin exam: normal color Neuro: Other: Interactive, weak Extrem: General: normal to inspection Other: Edema persists but better Objective Data Vital Signs Vital Signs: Vital Signs - 24 hr 11/16/25 12:00 11/16/25 12:00 11/16/25 12:00 Temperature 98.8 F Pulse Rate 66 Respiratory Rate 19 Blood Pressure 146/68 H Pulse Oximetry 94 93 Oxygen Delivery Mechanical Ventilation Fraction of Inspired Oxygen 40 40 11/16/25 12:00 11/16/25 12:00 11/16/25 13:00 Temperature 98.8 F Pulse Rate 66 66 67 Respiratory Rate 19 25 H Blood Pressure 150/65 H Pulse Oximetry 93 Oxygen Delivery Fraction of Inspired Oxygen 11/16/25 13:21 11/16/25 13:23 11/16/25 13:30 Temperature Pulse Rate 64 66 65 Respiratory Rate 28 H 27 H Blood Pressure Pulse Oximetry 94 Oxygen Delivery Mechanical Ventilation Fraction of Inspired Oxygen 40 11/16/25 14:00 11/16/25 14:00 11/16/25 14:00 Temperature 98.7 F Pulse Rate 69 69 70 Respiratory Rate 22 H 22 H Blood Pressure 146/53 H Pulse Oximetry 93 Oxygen Delivery Fraction of Inspired Oxygen 11/16/25 14:30 11/16/25 15:00 11/16/25 16:00 Temperature 98.7 F Pulse Rate 63 64 63 Respiratory Rate 18 20 Blood Pressure 145/72 H Pulse Oximetry 91 90 Oxygen Delivery Mechanical Ventilation Fraction of Inspired Oxygen 30 11/16/25 16:00 11/16/25 16:00 11/16/25 16:00 Temperature 98.8 F Pulse Rate 64 Respiratory Rate 21 H Blood Pressure 137/72 Pulse Oximetry 91 91 Oxygen Delivery Mechanical Ventilation Fraction of Inspired Oxygen 40 30 11/16/25 16:00 11/16/25 16:40 11/16/25 17:00 Temperature 98.8 F Pulse Rate 63 72 69 Respiratory Rate 19 17 Blood Pressure 141/79 H Pulse Oximetry 96 Oxygen Delivery Fraction of Inspired Oxygen 11/16/25 17:26 11/16/25 18:00 11/16/25 18:00 Temperature 98.7 F Pulse Rate 72 73 73 Respiratory Rate 19 19 Blood Pressure 140/67 Pulse Oximetry 95 95 Oxygen Delivery Mechanical Ventilation Fraction of Inspired Oxygen 40 11/16/25 18:00 11/16/25 19:00 11/16/25 20:00 Temperature 98.6 F Pulse Rate 73 67 64 Respiratory Rate 16 16 Blood Pressure 144/90 H Pulse Oximetry 92 Oxygen Delivery Fraction of Inspired Oxygen 11/16/25 20:00 11/16/25 20:00 11/16/25 20:00 Temperature Pulse Rate 67 Respiratory Rate Blood Pressure Pulse Oximetry Oxygen Delivery Mechanical Ventilation Fraction of Inspired Oxygen 40 30 11/16/25 20:01 11/16/25 20:12 11/16/25 20:13 Temperature 98.6 F Pulse Rate 70 63 64 Respiratory Rate 14 21 H Blood Pressure Pulse Oximetry 94 96 Oxygen Delivery Mechanical Ventilation Fraction of Inspired Oxygen 40 11/16/25 22:00 11/16/25 23:13 11/16/25 23:48 Temperature 98.8 F Pulse Rate 62 63 65 Respiratory Rate 19 Blood Pressure Pulse Oximetry 95 96 Oxygen Delivery Mechanical Ventilation Fraction of Inspired Oxygen 40 11/16/25 23:51 11/16/25 23:57 11/17/25 00:00 Temperature Pulse Rate 65 75 Respiratory Rate 15 15 Blood Pressure Pulse Oximetry Oxygen Delivery Mechanical Ventilation Fraction of Inspired Oxygen 40 11/17/25 00:00 11/17/25 00:00 11/17/25 00:00 Temperature 98.8 F Pulse Rate 60 63 Respiratory Rate 16 Blood Pressure Pulse Oximetry 97 Oxygen Delivery Fraction of Inspired Oxygen 30 11/17/25 00:01 11/17/25 01:00 11/17/25 01:02 Temperature 98.8 F 98.7 F 98.7 F Pulse Rate 65 64 63 Respiratory Rate 18 15 14 Blood Pressure 158/76 H 152/77 H Pulse Oximetry 97 96 96 Oxygen Delivery Fraction of Inspired Oxygen 11/17/25 02:00 11/17/25 02:00 11/17/25 02:12 Temperature 98.5 F Pulse Rate 58 L 59 L 59 L Respiratory Rate 15 Blood Pressure 158/79 H Pulse Oximetry 95 95 Oxygen Delivery Mechanical Ventilation Fraction of Inspired Oxygen 40 11/17/25 03:00 11/17/25 04:00 11/17/25 04:00 Temperature 98.3 F Pulse Rate 72 70 Respiratory Rate 17 Blood Pressure 133/94 H Pulse Oximetry 95 Oxygen Delivery Mechanical Ventilation Fraction of Inspired Oxygen 40 11/17/25 04:00 11/17/25 04:00 11/17/25 04:04 Temperature 98.1 F Pulse Rate 67 69 Respiratory Rate 17 13 Blood Pressure 147/56 H Pulse Oximetry 94 Oxygen Delivery Fraction of Inspired Oxygen 30 11/17/25 04:11 11/17/25 04:42 11/17/25 05:00 Temperature 98.1 F Pulse Rate 67 71 72 Respiratory Rate 13 20 Blood Pressure 133/71 Pulse Oximetry 95 94 Oxygen Delivery Mechanical Ventilation Fraction of Inspired Oxygen 40 11/17/25 06:00 11/17/25 06:00 11/17/25 07:00 Temperature 98.2 F 98.2 F Pulse Rate 68 70 72 Respiratory Rate 14 15 Blood Pressure 131/56 L 134/67 Pulse Oximetry 94 91 Oxygen Delivery Fraction of Inspired Oxygen 11/17/25 07:50 11/17/25 07:50 11/17/25 08:00 Temperature Pulse Rate 99 93 92 Respiratory Rate 19 15 Blood Pressure Pulse Oximetry 95 Oxygen Delivery Mechanical Ventilation Fraction of Inspired Oxygen 40 11/17/25 08:00 11/17/25 08:00 11/17/25 08:00 Temperature 98.5 F Pulse Rate 88 99 Respiratory Rate 23 H 21 H Blood Pressure 154/68 H Pulse Oximetry 95 95 Oxygen Delivery Mechanical Ventilation Fraction of Inspired Oxygen 40 11/17/25 08:00 11/17/25 08:00 11/17/25 08:08 Temperature Pulse Rate 100 88 Respiratory Rate Blood Pressure Pulse Oximetry 94 Oxygen Delivery Mechanical Ventilation Fraction of Inspired Oxygen 40 40 11/17/25 08:08 11/17/25 09:00 11/17/25 09:32 Temperature 98.6 F Pulse Rate 86 77 Respiratory Rate 20 18 Blood Pressure 150/68 H Pulse Oximetry 95 Oxygen Delivery Fraction of Inspired Oxygen 40 11/17/25 10:00 Temperature Pulse Rate 73 Respiratory Rate Blood Pressure Pulse Oximetry Oxygen Delivery Fraction of Inspired Oxygen Intake/Output Intake/Output: Intake & Output 11/14/25 11/15/25 11/16/25 11/17/25 23:59 23:59 23:59 23:59 Intake Total 1380.4 2220 2196.7 595 Output Total 1700 1900 3800 800 Balance -319.6 320 -1603.3 -205 Meds/Results Medications: Active Medications Generic Name Dose Route Start Last Admin Trade Name Freq PRN Reason Stop Dose Admin Acetaminophen 650 mg 11/09/25 13:04 Acetaminophen 650 Mg Suppository RECTAL Q6H PRN Mild Pain (1-3) or Fever Acetaminophen 650 mg 11/09/25 15:06 11/16/25 08:09 Acetaminophen 325 Mg Tablet PO 650 mg Q6H PRN Administration Mild Pain (1-3) or Fever Albuterol/Ipratropium 3 ml 11/10/25 08:03 11/16/25 13:21 Ipratropium 0.5 Mg/Albuterol Sulfate 2.5 Mg (Base) Ampul.Neb 3 Ml INHALATION 3 ml Q6HRT PRN Administration Wheezing Albuterol/Ipratropium 3 ml 11/16/25 16:00 11/17/25 07:49 Ipratropium 0.5 Mg/Albuterol Sulfate 2.5 Mg (Base) Ampul.Neb 3 Ml INHALATION 3 ml Q4HRT YFN Administration Aspirin 325 mg 11/12/25 08:00 11/17/25 09:08 Aspirin 325 Mg Tablet FEED TUBE 325 mg DAILY@0800 YFN Administration Atorvastatin Calcium 20 mg 11/10/25 09:00 11/17/25 09:08 Atorvastatin 20 Mg Tablet PO 20 mg DAILY YFN Administration Dexamethasone Sodium Phosphate 6 mg 11/16/25 21:00 11/17/25 09:08 Dexamethasone Sod Phos Inj 10 Mg/Ml 1 Ml Vial IV PUSH 11/17/25 21:01 6 mg Q12HR YFN Administration Dextrose 12.5 gm 11/14/25 20:50 Dextrose 50% 25 Gm/50 Ml Syringe IV PUSH PRN PRN Hypoglycemia Protocol Enoxaparin Sodium 40 mg 11/09/25 15:00 11/17/25 09:08 Enoxaparin 40 Mg/0.4 Ml Syringe SUB-Q 40 mg DAILY YFN Administration Glucose 15 gm 11/14/25 20:50 Glucose Oral Gel 15 Gm Of Glucse In 37.5 Gm Tube PO PRN PRN Hypoglycemia Protocol Hydralazine HCl 50 mg 11/16/25 22:00 11/17/25 06:23 Hydralazine Hcl 50 Mg Tablet PO 50 mg Q8HR YFN Administration Cefepime HCl 2 gm/ Sodium 50 mls @ 100 mls/hr 11/10/25 09:00 11/17/25 09:07 Chloride IVPB 100 mls/hr Q12H YFN Administration Dextrose 1,000 mls @ 100 mls/hr 11/14/25 20:50 Dextrose 5% 1,000 Ml IVPB PRN PRN Hypoglycemia Protocol Vancomycin HCl 1,250 mg in 250 mls @ 166.667 mls/hr 11/17/25 06:00 11/17/25 06:25 Vancomycin 1,250 Mg/Ns 250 Ml IVPB 166.67 mls/hr Q24H YFN Administration Levothyroxine Sodium 112 mcg 11/10/25 06:30 11/17/25 06:24 Levothyroxine Sodium 112 Mcg Tablet PO 112 mcg DAILY@0630 YFN Administration Levothyroxine Sodium 25 mcg 11/10/25 06:30 11/17/25 06:24 Levothyroxine Sodium 25 Mcg Tablet PO 25 mcg DAILY@0630 YFN Administration Multi-Ingred Cream/Lotion/Oil/Oint 1 applic 11/09/25 21:00 11/17/25 09:08 Mineral Oil/White Petrolatum Ointment EACH EYE 1 applic Q12HR YFN Administration Ondansetron HCl 4 mg 11/09/25 13:04 Ondansetron Inj 4 Mg/2 Ml Vial IV PUSH Q4H PRN Nausea Pantoprazole Sodium 40 mg 11/10/25 09:00 11/17/25 09:08 Pantoprazole Sodium Iv 40 Mg Vial IV PUSH 40 mg QAM YFN Administration Polyethylene Glycol 17 gm 11/16/25 13:00 11/17/25 09:08 Polyethylene Glycol 3350 17 Gm Powd.Pack FEED TUBE 17 gm QAM YFN Administration Sodium Chloride 10 ml 11/12/25 14:00 11/17/25 06:24 Central Line Flush IV PUSH 10 ml Q8HR YFN Administration Sodium Chloride 10 ml 11/12/25 09:17 Central Line Flush IV PUSH PRN PRN with TPN bag changes Sodium Chloride 20 ml 11/12/25 09:17 Central Line Flush IV PUSH PRN PRN after blood draws Radiology Results: ITS Impressions Abdomen X-Ray 11/09/25 13:22 Impression: 1. No acute abnormality. Chest/Abdomen/Pelvis CT 11/10/25 14:11 IMPRESSION: 1. Satisfactory position of endotracheal tube and nasogastric tube. 2. Perihilar vascular congestion of both lungs. Platelike atelectasis of mid left lung. Partial atelectasis of lung bases on both sides. Minimal bilateral pleural effusion. 3. Distended gallbladder containing calcified gallstone. Atrophic kidneys. Chest X-Ray 11/16/25 08:04 IMPRESSION: 1. Slight interval decrease in bilateral perihilar predominant interstitial and airspace opacities consistent with improving pulmonary edema and/or pneumonia. Labs Labs: Laboratory Results - last 24 hr 11/16/25 11/16/25 11/16/25 11:42 12:49 18:25 WBC RBC Hgb Hct MCV MCH MCHC RDW Plt Count MPV Immature Gran % (Auto) Neut % (Auto) Lymph % (Auto) Dukes % (Auto) Eos % (Auto) Baso % (Auto) Lymph # (Auto) Dukes # (Auto) Eos # (Auto) Baso # (Auto) Abs Immat Gran (auto) Absolute Neuts (auto) Absolute Nucleated RBC Nucleated RBC % Puncture Site Right radial ABG pH 7.501 H ABG pCO2 40.5 ABG pO2 64.9 L ABG PO2/FiO2 Ratio 1.62 ABG HCO3 30.9 H ABG O2 Saturation 94.3 L ABG O2 Content 15.4 L ABG Base Excess 7.2 A-a Gradient 173.7 Oxyhemoglobin 92.0 Carboxyhemoglobin Methemoglobin Reduced Hemoglobin Total Hemoglobin 11.9 L O2 Delivery Device Ventilator O2 Liters/Min Not Reportable Minute Volume Not Reportable Vent Rate 13 Vent Mode Cmv FiO2 40 Tidal Volume 380 PEEP 5 Peak Inspir Pressure Not Reportable Pressure Support Not Reportable Sodium Potassium Chloride Carbon Dioxide Anion Gap BUN Creatinine Estim Creat Clear Calc Estimated GFR Glucose POC Capillary Glucose 138 H 177 H Calcium Phosphorus Albumin Vancomycin Trough 11/16/25 11/17/25 11/17/25 23:07 04:33 06:21 WBC RBC Hgb Hct MCV MCH MCHC RDW Plt Count MPV Immature Gran % (Auto) Neut % (Auto) Lymph % (Auto) Dukes % (Auto) Eos % (Auto) Baso % (Auto) Lymph # (Auto) Dukes # (Auto) Eos # (Auto) Baso # (Auto) Abs Immat Gran (auto) Absolute Neuts (auto) Absolute Nucleated RBC Nucleated RBC % Puncture Site Right radial ABG pH 7.448 ABG pCO2 45.0 ABG pO2 86.2 ABG PO2/FiO2 Ratio 2.15 ABG HCO3 30.4 H ABG O2 Saturation 96.8 ABG O2 Content 16.1 ABG Base Excess 5.7 A-a Gradient 147.3 Oxyhemoglobin 95.4 Carboxyhemoglobin 0.6 Methemoglobin 0.1 Reduced Hemoglobin 3.9 Total Hemoglobin 11.9 L O2 Delivery Device Ventilator O2 Liters/Min Not Reportable Minute Volume Not Reportable Vent Rate 13 Vent Mode Cmv FiO2 40 Tidal Volume 380 PEEP 5 Peak Inspir Pressure Not Reportable Pressure Support Not Reportable Sodium 137 Potassium 4.7 Chloride 97 L Carbon Dioxide 36 H Anion Gap 4 BUN 56 H Creatinine 1.13 H Estim Creat Clear Calc 59 Estimated GFR 48 L Glucose 154 H POC Capillary Glucose Calcium 8.7 Phosphorus 4.0 Albumin 3.3 L Vancomycin Trough 19.6 11/17/25 09:15 WBC 14.1 H RBC 3.86 L Hgb 11.0 L Hct 35.5 L MCV 92.0 MCH 28.5 MCHC 31.0 L RDW 15.1 H Plt Count 278 MPV 10.0 Immature Gran % (Auto) 4.2 H Neut % (Auto) 85.3 H Lymph % (Auto) 4.9 L Dukes % (Auto) 5.1 Eos % (Auto) 0.4 Baso % (Auto) 0.1 L Lymph # (Auto) 0.69 L Dukes # (Auto) 0.7 H Eos # (Auto) 0.1 Baso # (Auto) 0.0 Abs Immat Gran (auto) 0.59 H Absolute Neuts (auto) 12.0 H Absolute Nucleated RBC 0.000 Nucleated RBC % 0.0 Puncture Site ABG pH ABG pCO2 ABG pO2 ABG PO2/FiO2 Ratio ABG HCO3 ABG O2 Saturation ABG O2 Content ABG Base Excess A-a Gradient Oxyhemoglobin Carboxyhemoglobin Methemoglobin Reduced Hemoglobin Total Hemoglobin O2 Delivery Device O2 Liters/Min Minute Volume Vent Rate Vent Mode FiO2 Tidal Volume PEEP Peak Inspir Pressure Pressure Support Sodium Potassium Chloride Carbon Dioxide Anion Gap BUN Creatinine Estim Creat Clear Calc Estimated GFR Glucose POC Capillary Glucose Calcium Phosphorus Albumin Vancomycin Trough Critical Care Time Critical Care Time Critical Care Time: Yes Time Type: Intermittent Initial evaluation, discuss w/ involved parties, attempting to gather old record s: 15 minutes Documenting medical record: 5 minutes Review of results (EKG's, labs, imaging): 10 minutes Serial repeat bedside evaluation: 10 minutes Discussing case with multiple memebers of the care team and consultants: 5 minutes Total Critical Care Time: 45
[2025-11-17] MEDS: FUROSEMIDE INJ 40 MG/4 ML VIAL IV PUSH (13:00)
[2025-11-18] VITALS (41 sets, daily range): BP systolic 104–145; BP diastolic 46–98; PULSE 65–80; RESP 13–31; TEMP 36.6–37.2; O2SAT 93–99
[2025-11-18] MEDS: IPRATROPIUM 0.5 MG/ALBUTEROL SULFATE 2.5 MG (BASE) AMPUL.NEB 3 ML INHALATION ×5 (03:21→20:44)
[2025-11-18 05:08] LABS: Alveolar/Arterial O2 Gradient 139.2 mmHg; Carboxyhemoglobin 0.8 % THb (0-2.0); Fractional Inspired Oxygen 40 %; HCO3 ABG 34.4 mEq/l (22.0-26.0); Methemoglobin ABG 0.2 %THb (0-1.5); Oxygen Content ABG 17.3 %vol (16.0-22.0); Oxygen Saturation ABG 97.4 % (95.0-100.0); PCO2 ABG 47.2 mmHg (35.0-45.0); PO2 ABG 91.7 mmHg (80.0-100.0); PO2 FiO2 Ratio Arterial Blood 2.29 %; Reduced Hemoglobin 2.8 %THb (0-5.0)
[2025-11-18 05:10] LABS: Modified Allen's Test Pass; Site Drawn LEFT RADIAL
[2025-11-18 05:11] LABS: Arterial Blood Gas Tidal Volume 380 ml; Arterial Blood Gas Ventilator rate 13 /MIN
[2025-11-18] MEDS: LEVOTHYROXINE SODIUM 112 MCG TABLET PO (05:16)
[2025-11-18] MEDS: LEVOTHYROXINE SODIUM 25 MCG TABLET PO (05:16)
[2025-11-18] MEDS: VANCOMYCIN 1,250 MG/NS 250 ML 1,250 MG/250 ML BAG 166.7 MG IVPB (05:17)
[2025-11-18] MEDS: CENTRAL LINE FLUSH 10 ML IV PUSH ×3 (05:17→21:20)
[2025-11-18 05:40] LABS: Hematocrit 34.0 % (37.0-47.0); Hemoglobin 10.8 g/dL (12.0-15.0); Immature Granulocyte Percent A 2.0 % (0-0.5); Lymphocytes Absolute Auto 0.38 K/mm3 (0.9-3.2); Mean Corpuscular HGB Conc 31.8 g/dl (32-36); Mean Corpuscular Hemoglobin 29.1 pg (26-34); Mean Corpuscular Volume 91.6 fl (80-100); Nucleated Red Blood Cells Absolute Auto 0.000 K/mm3 (0.0-0.012); Nucleated Red Blood Cells Perc 0.0 % (0.0-0.2); Platelet Count Result 300 k/mm3 (150-375); Red Blood Count 3.71 M/mm3 (4.2-5.4); White Blood Count 14.2 K/mm3 (4.5-10.0)
[2025-11-18 05:47] LABS: Albumin Level 3.4 g/dL (3.5-5.1); Anion Gap 2 mmol/L (4-12); Blood Urea Nitrogen 58 mg/dL (7-17); Calcium 8.9 mg/dL (8.4-10.2); Carbon Dioxide 36 mmol/L (22-30); Chloride 98 mmol/L (98-107); Estimated CRCL calculation 58 ml/min; Estimated Glomerular Filt Rate 46; Glucose 162 mg/dL (65-110); Potassium 4.6 mmol/L (3.4-5.0); Sodium 136 mmol/L (137-145)
[2025-11-18 06:09] LABS: Anisocytosis 1+
[2025-11-18 06:10] LABS: Schistocytes None Seen
[2025-11-18] MEDS: CEFEPIME 2 GM in SODIUM CHLORIDE 0.9% IV 50 ML 100 ML IVPB ×2 (08:26→21:20)
[2025-11-18] MEDS: ASPIRIN 325 MG TABLET FEED TUBE (08:26)
[2025-11-18] MEDS: ATORVASTATIN 20 MG TABLET PO (08:26)
[2025-11-18] MEDS: ENOXAPARIN 40 MG/0.4 ML SYRINGE SUB-Q (08:27)
[2025-11-18] MEDS: MINERAL OIL/WHITE PETROLATUM OINTMENT 1 APPLIC EACH EYE (08:27)
[2025-11-18] MEDS: PANTOPRAZOLE SODIUM IV 40 MG VIAL IV PUSH (08:27)
--- NOTE | 2025-11-18 10:14 | P.PNINT_ITS ---
Assessment and Plan Assessment and Plan (1) COVID: Code(s): U07.1 - COVID-19 Status: Acute (2) Pneumonia: Code(s): J18.9 - Pneumonia, unspecified organism Status: Acute (3) Chronic respiratory failure: Code(s): J96.10 - Chronic respiratory failure, unspecified whether with hypoxia or hypercapnia Status: Acute (4) Hypothyroidism: Code(s): E03.9 - Hypothyroidism, unspecified Status: Acute (5) Hypertension: Code(s): I10 - Essential (primary) hypertension Status: Acute Plan 1. Neurologically: The patient was awake and interactive. Weak and debilitated 2. Cardiovascular: Blood pressure overall has improved on higher doses of hydralazine. 3. Respiratory failure due to pneumonia: Patient was placed on pressure support trials and did well so she was successfully extubated. Will wean FiO2 as tolerated. She will finish antibiotics tomorrow. Bronchus proximally overall better will decrease steroids. GI: She was tolerating tube feedings and having bowel movements on bowel regimen 5. and Renal: She diuresed well with Lasix x2 yesterday. Chemistry similar with a BUN of 58 and creatinine of 1.1. 6. Endocrine: Continue Synthroid, glucose overall adequately control. 7. Id: 1 more day of antibiotics for treatment of pneumonia. 8. Hematologically: White count on still elevated but overall the CBCs similar to yesterday. This is in part related to steroids. 9. DVT prophylaxis on Lovenox Subjective Date/time seen: 11/18/25 10:14 Interval history: Patient was placed on pressure support trials today and successfully extubated Exam Narrative: She was awake and interactive Const: General: no acute distress HENMT: Mouth: Yes dry mucous membranes Eyes: General: appearance normal, both eyes and all related structures Neck: Neck: no JVD Resp: Auscultation: diminished lung sounds Cardio: Other: Irregular rate GI: GI Palp: Yes Soft to palpation Auscultation: normal bowel sounds Urinary Catheter: Urinary Catheter: patent and draining Skin: General skin exam: normal color Extrem: General: edema Objective Data Vital Signs Vital Signs: Vital Signs - 24 hr 11/17/25 11:00 11/17/25 11:35 11/17/25 11:35 Temperature 98.8 F Pulse Rate 71 70 93 Respiratory Rate 21 H 19 Blood Pressure 147/66 H Pulse Oximetry 93 92 Oxygen Delivery Mechanical Ventilation Oxygen Flow Rate Fraction of Inspired Oxygen 40 11/17/25 11:45 11/17/25 12:00 11/17/25 12:00 Temperature 98.8 F Pulse Rate 90 73 Respiratory Rate 20 24 H Blood Pressure 139/61 Pulse Oximetry 91 Oxygen Delivery Oxygen Flow Rate Fraction of Inspired Oxygen 40 11/17/25 12:00 11/17/25 12:00 11/17/25 13:00 Temperature 98.8 F Pulse Rate 110 H 86 Respiratory Rate 20 Blood Pressure 130/64 Pulse Oximetry 91 98 Oxygen Delivery Mechanical Ventilation Oxygen Flow Rate Fraction of Inspired Oxygen 40 11/17/25 13:20 11/17/25 14:00 11/17/25 14:00 Temperature 99 F Pulse Rate 80 67 75 Respiratory Rate 15 Blood Pressure 125/62 Pulse Oximetry 93 94 Oxygen Delivery Mechanical Ventilation Oxygen Flow Rate Fraction of Inspired Oxygen 40 11/17/25 15:00 11/17/25 16:00 11/17/25 16:00 Temperature 98.9 F 98.6 F Pulse Rate 73 70 66 Respiratory Rate 14 16 Blood Pressure 115/56 L 122/61 Pulse Oximetry 94 93 Oxygen Delivery Oxygen Flow Rate Fraction of Inspired Oxygen 11/17/25 16:00 11/17/25 16:00 11/17/25 16:27 Temperature Pulse Rate 75 Respiratory Rate Blood Pressure Pulse Oximetry 93 93 Oxygen Delivery Mechanical Ventilation Mechanical Ventilation Oxygen Flow Rate Fraction of Inspired Oxygen 40 40 40 11/17/25 16:27 11/17/25 16:35 11/17/25 17:00 Temperature 98.5 F Pulse Rate 75 70 70 Respiratory Rate 18 20 21 H Blood Pressure 126/57 L Pulse Oximetry 93 Oxygen Delivery Oxygen Flow Rate Fraction of Inspired Oxygen 11/17/25 18:00 11/17/25 18:00 11/17/25 19:00 Temperature 98.6 F 98.6 F Pulse Rate 67 75 67 Respiratory Rate 22 H 17 Blood Pressure 123/52 L 137/66 Pulse Oximetry 93 95 Oxygen Delivery Oxygen Flow Rate Fraction of Inspired Oxygen 11/17/25 19:38 11/17/25 19:46 11/17/25 20:00 Temperature 98.6 F 98.6 F Pulse Rate 67 69 Respiratory Rate 23 H 22 H Blood Pressure Pulse Oximetry 96 96 Oxygen Delivery Oxygen Flow Rate Fraction of Inspired Oxygen 40 11/17/25 20:00 11/17/25 20:00 11/17/25 20:02 Temperature 98.5 F Pulse Rate 71 69 Respiratory Rate 18 Blood Pressure Pulse Oximetry 98 95 Oxygen Delivery Mechanical Ventilation Oxygen Flow Rate Fraction of Inspired Oxygen 40 11/17/25 20:11 11/17/25 20:22 11/17/25 20:36 Temperature 98.5 F 98.6 F Pulse Rate 69 66 Respiratory Rate 23 H 16 Blood Pressure 140/110 H Pulse Oximetry 96 98 Oxygen Delivery Oxygen Flow Rate Fraction of Inspired Oxygen 11/17/25 20:52 11/17/25 20:53 11/17/25 21:00 Temperature Pulse Rate 75 75 Respiratory Rate 18 Blood Pressure 141/62 H Pulse Oximetry 98 Oxygen Delivery Mechanical Ventilation Oxygen Flow Rate Fraction of Inspired Oxygen 40 11/17/25 21:00 11/17/25 21:08 11/17/25 22:00 Temperature 98.8 F Pulse Rate 76 80 71 Respiratory Rate 18 18 18 Blood Pressure 132/65 Pulse Oximetry 98 Oxygen Delivery Oxygen Flow Rate Fraction of Inspired Oxygen 11/17/25 22:00 11/17/25 23:00 11/17/25 23:20 Temperature 98.9 F Pulse Rate 71 67 66 Respiratory Rate 19 Blood Pressure 136/71 Pulse Oximetry 98 98 Oxygen Delivery Mechanical Ventilation Oxygen Flow Rate Fraction of Inspired Oxygen 40 11/17/25 23:23 11/17/25 23:30 11/18/25 00:00 Temperature 98.9 F Pulse Rate 66 68 70 Respiratory Rate 18 18 16 Blood Pressure 124/63 Pulse Oximetry 96 Oxygen Delivery Oxygen Flow Rate Fraction of Inspired Oxygen 11/18/25 00:00 11/18/25 00:00 11/18/25 00:00 Temperature Pulse Rate 70 Respiratory Rate Blood Pressure Pulse Oximetry 96 Oxygen Delivery Mechanical Ventilation Oxygen Flow Rate Fraction of Inspired Oxygen 40 40 11/18/25 01:00 11/18/25 02:00 11/18/25 02:00 Temperature 98.9 F 98.9 F Pulse Rate 67 72 72 Respiratory Rate 31 H 16 Blood Pressure 123/60 134/60 Pulse Oximetry 96 97 Oxygen Delivery Oxygen Flow Rate Fraction of Inspired Oxygen 11/18/25 02:32 11/18/25 03:00 11/18/25 03:21 Temperature 99.0 F Pulse Rate 68 76 79 Respiratory Rate 20 22 H Blood Pressure 114/98 H Pulse Oximetry 98 96 Oxygen Delivery Mechanical Ventilation Oxygen Flow Rate Fraction of Inspired Oxygen 40 11/18/25 03:30 11/18/25 04:00 11/18/25 04:00 Temperature 98.9 F Pulse Rate 80 69 Respiratory Rate 22 H 17 Blood Pressure 111/58 L Pulse Oximetry 97 Oxygen Delivery Oxygen Flow Rate Fraction of Inspired Oxygen 40 11/18/25 04:00 11/18/25 04:45 11/18/25 05:00 Temperature 98.8 F Pulse Rate 70 67 Respiratory Rate 18 Blood Pressure 113/59 L Pulse Oximetry 97 97 Oxygen Delivery Mechanical Ventilation Oxygen Flow Rate Fraction of Inspired Oxygen 40 11/18/25 05:14 11/18/25 06:00 11/18/25 06:00 Temperature 98.8 F Pulse Rate 74 71 71 Respiratory Rate 13 Blood Pressure 120/70 Pulse Oximetry 99 94 Oxygen Delivery Mechanical Ventilation Oxygen Flow Rate Fraction of Inspired Oxygen 40 11/18/25 07:00 11/18/25 07:40 11/18/25 07:42 Temperature 98.7 F Pulse Rate 69 71 71 Respiratory Rate 17 26 H Blood Pressure 121/61 Pulse Oximetry 95 95 Oxygen Delivery Mechanical Ventilation Oxygen Flow Rate Fraction of Inspired Oxygen 30 11/18/25 07:50 11/18/25 08:00 11/18/25 08:00 Temperature 98.7 F Pulse Rate 73 72 Respiratory Rate 28 H 25 H Blood Pressure 126/77 Pulse Oximetry 95 Oxygen Delivery Oxygen Flow Rate Fraction of Inspired Oxygen 30 11/18/25 08:00 11/18/25 08:00 11/18/25 09:00 Temperature 98.6 F Pulse Rate 66 75 Respiratory Rate 25 H Blood Pressure 145/63 H Pulse Oximetry 95 97 Oxygen Delivery Mechanical Ventilation Oxygen Flow Rate Fraction of Inspired Oxygen 30 11/18/25 09:20 11/18/25 09:22 11/18/25 10:00 Temperature Pulse Rate 75 Respiratory Rate Blood Pressure Pulse Oximetry 96 95 Oxygen Delivery Nasal Cannula Nasal Cannula Oxygen Flow Rate 2 2 Fraction of Inspired Oxygen 28 11/18/25 10:00 Temperature 98.7 F Pulse Rate 76 Respiratory Rate 29 H Blood Pressure 136/58 L Pulse Oximetry 98 Oxygen Delivery Oxygen Flow Rate Fraction of Inspired Oxygen Intake/Output Intake/Output: Intake & Output 11/15/25 11/16/25 11/17/25 11/18/25 23:59 23:59 23:59 23:59 Intake Total 2220 2196.7 2260 498 Output Total 1900 3800 2050 1125 Balance 320 -1043.3 210 -227 Meds/Results Medications: Active Medications Generic Name Dose Route Start Last Admin Trade Name Freq PRN Reason Stop Dose Admin Acetaminophen 650 mg 11/09/25 13:04 Acetaminophen 650 Mg Suppository RECTAL Q6H PRN Mild Pain (1-3) or Fever Acetaminophen 650 mg 11/09/25 15:06 11/16/25 08:09 Acetaminophen 325 Mg Tablet PO 650 mg Q6H PRN Administration Mild Pain (1-3) or Fever Albuterol/Ipratropium 3 ml 11/10/25 08:03 11/16/25 13:21 Ipratropium 0.5 Mg/Albuterol Sulfate 2.5 Mg (Base) Ampul.Neb 3 Ml INHALATION 3 ml Q6HRT PRN Administration Wheezing Albuterol/Ipratropium 3 ml 11/16/25 16:00 11/18/25 07:46 Ipratropium 0.5 Mg/Albuterol Sulfate 2.5 Mg (Base) Ampul.Neb 3 Ml INHALATION 3 ml Q4HRT YFN Administration Aspirin 325 mg 11/12/25 08:00 11/18/25 08:26 Aspirin 325 Mg Tablet FEED TUBE 325 mg DAILY@0800 YFN Administration Atorvastatin Calcium 20 mg 11/10/25 09:00 11/18/25 08:26 Atorvastatin 20 Mg Tablet PO 20 mg DAILY YFN Administration Dextrose 12.5 gm 11/14/25 20:50 Dextrose 50% 25 Gm/50 Ml Syringe IV PUSH PRN PRN Hypoglycemia Protocol Docusate Sodium 100 mg 11/17/25 21:00 11/18/25 08:26 Docusate Sodium Liq 100 Mg/10 Ml Udc FEED TUBE 100 mg Q12HR YFN Administration Enoxaparin Sodium 40 mg 11/09/25 15:00 11/18/25 08:27 Enoxaparin 40 Mg/0.4 Ml Syringe SUB-Q 40 mg DAILY YFN Administration Glucose 15 gm 11/14/25 20:50 Glucose Oral Gel 15 Gm Of Glucse In 37.5 Gm Tube PO PRN PRN Hypoglycemia Protocol Hydralazine HCl 50 mg 11/17/25 12:00 11/18/25 05:16 Hydralazine Hcl 50 Mg Tablet PO 50 mg Q6HR YFN Administration Cefepime HCl 2 gm/ Sodium 50 mls @ 100 mls/hr 11/10/25 09:00 11/18/25 08:56 Chloride IVPB Infused Q12H YFN Infusion Dextrose 1,000 mls @ 100 mls/hr 11/14/25 20:50 Dextrose 5% 1,000 Ml IVPB PRN PRN Hypoglycemia Protocol Vancomycin HCl 1,250 mg in 250 mls @ 166.667 mls/hr 11/17/25 06:00 11/18/25 05:17 Vancomycin 1,250 Mg/Ns 250 Ml IVPB 166.7 mls/hr Q24H YFN Administration Levothyroxine Sodium 112 mcg 11/10/25 06:30 11/18/25 05:16 Levothyroxine Sodium 112 Mcg Tablet PO 112 mcg DAILY@0630 YFN Administration Levothyroxine Sodium 25 mcg 11/10/25 06:30 11/18/25 05:16 Levothyroxine Sodium 25 Mcg Tablet PO 25 mcg DAILY@0630 YFN Administration Multi-Ingred Cream/Lotion/Oil/Oint 1 applic 11/09/25 21:00 11/18/25 08:27 Mineral Oil/White Petrolatum Ointment EACH EYE 1 applic Q12HR YFN Administration Ondansetron HCl 4 mg 11/09/25 13:04 Ondansetron Inj 4 Mg/2 Ml Vial IV PUSH Q4H PRN Nausea Pantoprazole Sodium 40 mg 11/10/25 09:00 11/18/25 08:27 Pantoprazole Sodium Iv 40 Mg Vial IV PUSH 40 mg QAM YFN Administration Polyethylene Glycol 17 gm 11/17/25 17:00 11/18/25 08:26 Polyethylene Glycol 3350 17 Gm Powd.Pack FEED TUBE 17 gm BID YFN Administration Sodium Chloride 10 ml 11/12/25 14:00 11/18/25 05:17 Central Line Flush IV PUSH 10 ml Q8HR YFN Administration Sodium Chloride 10 ml 11/12/25 09:17 Central Line Flush IV PUSH PRN PRN with TPN bag changes Sodium Chloride 20 ml 11/12/25 09:17 Central Line Flush IV PUSH PRN PRN after blood draws Radiology Results: ITS Impressions Abdomen X-Ray 11/09/25 13:22 Impression: 1. No acute abnormality. Chest/Abdomen/Pelvis CT 11/10/25 14:11 IMPRESSION: 1. Satisfactory position of endotracheal tube and nasogastric tube. 2. Perihilar vascular congestion of both lungs. Platelike atelectasis of mid left lung. Partial atelectasis of lung bases on both sides. Minimal bilateral pleural effusion. 3. Distended gallbladder containing calcified gallstone. Atrophic kidneys. Chest X-Ray 11/16/25 08:04 IMPRESSION: 1. Slight interval decrease in bilateral perihilar predominant interstitial and airspace opacities consistent with improving pulmonary edema and/or pneumonia. Labs Labs: Laboratory Results - last 24 hr 11/17/25 11/17/25 11/18/25 11:57 18:09 00:29 WBC RBC Hgb Hct MCV MCH MCHC RDW Plt Count MPV Immature Gran % (Auto) Neut % (Auto) Lymph % (Auto) [place] % (Auto) Eos % (Auto) Baso % (Auto) Lymph # (Auto) [place] # (Auto) Eos # (Auto) Baso # (Auto) Abs Immat Gran (auto) Absolute Neuts (auto) Absolute Nucleated RBC Band Neutrophils % Nucleated RBC % Platelet Estimate Clumped Platelets Anisocytosis Schistocytes Puncture Site ABG pH ABG pCO2 ABG pO2 ABG PO2/FiO2 Ratio ABG HCO3 ABG O2 Saturation ABG O2 Content ABG Base Excess A-a Gradient Oxyhemoglobin Carboxyhemoglobin Methemoglobin Reduced Hemoglobin Total Hemoglobin O2 Delivery Device O2 Liters/Min Minute Volume Vent Rate Vent Mode FiO2 Tidal Volume PEEP Peak Inspir Pressure Pressure Support Sodium Potassium Chloride Carbon Dioxide Anion Gap BUN Creatinine Estim Creat Clear Calc Estimated GFR Glucose POC Capillary Glucose 149 H 151 H 159 H Calcium Phosphorus Albumin 11/18/25 11/18/25 04:57 05:11 WBC 14.2 H RBC 3.71 L Hgb 10.8 L Hct 34.0 L MCV 91.6 MCH 29.1 MCHC 31.8 L RDW 15.2 H Plt Count 300 MPV 10.2 Immature Gran % (Auto) 2.0 H Neut % (Auto) 92.3 H Lymph % (Auto) 2.7 L [place] % (Auto) 2.7 Eos % (Auto) 0.1 Baso % (Auto) 0.2 Lymph # (Auto) 0.38 L [place] # (Auto) 0.4 Eos # (Auto) 0.0 Baso # (Auto) 0.0 Abs Immat Gran (auto) 0.28 H Absolute Neuts (auto) 13.1 H Absolute Nucleated RBC 0.000 Band Neutrophils % Not Reportable Nucleated RBC % 0.0 Platelet Estimate Adequate Clumped Platelets Present Anisocytosis 1+ Schistocytes None seen Puncture Site Left radial ABG pH 7.480 H ABG pCO2 47.2 H ABG pO2 91.7 ABG PO2/FiO2 Ratio 2.29 ABG HCO3 34.4 H ABG O2 Saturation 97.4 ABG O2 Content 17.3 ABG Base Excess 9.6 A-a Gradient 139.2 Oxyhemoglobin 96.2 Carboxyhemoglobin 0.8 Methemoglobin 0.2 Reduced Hemoglobin 2.8 Total Hemoglobin 12.7 O2 Delivery Device Ventilator O2 Liters/Min Not Reportable Minute Volume Not Reportable Vent Rate 13 Vent Mode Cmv FiO2 40 Tidal Volume 380 PEEP 5 Peak Inspir Pressure Not Reportable Pressure Support Not Reportable Sodium 136 L Potassium 4.6 Chloride 98 Carbon Dioxide 36 H Anion Gap 2 L BUN 58 H Creatinine 1.16 H Estim Creat Clear Calc 58 Estimated GFR 46 L Glucose 162 H POC Capillary Glucose Calcium 8.9 Phosphorus 3.9 Albumin 3.4 L Critical Care Time Critical Care Time Critical Care Time: Yes Time Type: Intermittent Initial evaluation, discuss w/ involved parties, attempting to gather old records: 10 minutes Documenting medical record: 5 minutes Review of results (EKG's, labs, imaging): 10 minutes Serial repeat bedside evaluation: 10 minutes Discussing case with multiple memebers of the care team and consultants: 10 minutes Total Critical Care Time: 45
--- NOTE | 2025-11-18 13:50 | PCSTNOTE ---
Please refer to the Bedside Swallow Evaluation in the EMR. Please note, silent aspiration cannot be ruled out at bedside. Communication skills appear WFL as judging from today's interaction.
[2025-11-19] VITALS (32 sets, daily range): BP systolic 93–133; BP diastolic 45–78; PULSE 57–73; RESP 16–26; TEMP 36.3–36.9; O2SAT 87–100; BMI 51.6
[2025-11-19] MEDS: IPRATROPIUM 0.5 MG/ALBUTEROL SULFATE 2.5 MG (BASE) AMPUL.NEB 3 ML INHALATION ×4 (03:26→21:24)
[2025-11-19] MEDS: LEVOTHYROXINE SODIUM 112 MCG TABLET PO (05:57)
[2025-11-19] MEDS: CENTRAL LINE FLUSH 10 ML IV PUSH ×3 (05:57→20:50)
[2025-11-19] MEDS: LEVOTHYROXINE SODIUM 25 MCG TABLET PO (05:57)
[2025-11-19] MEDS: ATORVASTATIN 20 MG TABLET PO (08:17)
[2025-11-19] MEDS: PANTOPRAZOLE SODIUM IV 40 MG VIAL IV PUSH (08:17)
[2025-11-19] MEDS: ASPIRIN 325 MG TABLET FEED TUBE (08:17)
[2025-11-19] MEDS: ENOXAPARIN 40 MG/0.4 ML SYRINGE SUB-Q (08:18)
[2025-11-19] MEDS: CEFEPIME 2 GM in SODIUM CHLORIDE 0.9% IV 50 ML 100 ML IVPB (08:18)
--- NOTE | 2025-11-19 11:01 | WPDINTPN2 ---
Assessment and Plan Assessment and Plan (1) Acute hypercapnic respiratory failure: Code(s): J96.02 - Acute respiratory failure with hypercapnia Status: Acute (2) COVID: Code(s): U07.1 - COVID-19 Status: Acute (3) CHF exacerbation: Code(s): I50.9 - Heart failure, unspecified Status: Acute (4) Pneumonia: Code(s): J18.9 - Pneumonia, unspecified organism Status: Acute (5) COPD (chronic obstructive pulmonary disease): Code(s): J44.9 - Chronic obstructive pulmonary disease, unspecified Status: Acute Plan 1. Neurologically: Patient is weak and debilitated but following commands. We have consulted PT, OT, speech. Apparently she does not get much mobility at the long-term 2. Cardiovascular: Blood pressure did decrease some with hydralazine 50 q.6 hours which has been decreased. She continued to have frequent ectopy which has occurred throughout the admission. 3. Respiratory failure: Patient completed 7 days of antibiotics including cefepime and vancomycin today. No new culture data. She is on 4 L nasal cannula which is what she uses at home. She had a couple of days of progress spasms for which she was started on DuoNebs which I will decrease to Q 8 hours. She has been weaned off steroids. Last chest x-ray was almost completely clear with mild interstitial prominence and no confluent infiltrate 4. GI: She has been able to tolerate p.o. intake and having bowel movements. Continue with bowel regimen. 5. and Renal: Mildly elevated BUN and creatinine which will be recheck tomorrow. Will restart her home dose of Lasix which is 40 mg p.o. daily. 6. Endocrine: Blood sugars are significantly better after we stop steroids. 7. DVT prophylaxis: Lovenox 8. Hematologically: Will check CBC tomorrow. 9. Id: She completed antibiotics today. Cultures were negative. 10. Disposition: Stable to move to IMU Time Spent With Patient Time with patient: Greater than 35 minutes Subjective Date/time seen: 11/19/25 11:01 Interval history: 69-year-old lady was admitted on 11/13 with respiratory failure, positive COVID test and confluent infiltrates consistent with pneumonia. Patient has a history of hypothyroidism and CHF. Patient was placed on mechanical ventilation started on antibiotics, steroids, Miguel, tube feedings. Patient became volume overloaded and required intermittent diuresis. Her clinical condition slowly improved and on 11/18/2025 she was extubated. She finished antibiotics today currently on nasal cannula 4 L which is what she takes at home. Exam Narrative: Awake and interactive Const: General: comfortable HENMT: Face/Nose/Sinus: Normal nares present Eyes: General: appearance normal, both eyes and all related structures Neck: Neck: no JVD Resp: Auscultation: rhonchi and diminished lung sounds Cardio: Other: Irregular GI: GI Palp: Yes Soft to palpation Auscultation: normal bowel sounds Other: Obese Skin: General skin exam: normal color Neuro: Other: Weak and debilitated Extrem: General: edema Objective Data Vital Signs Vital Signs: Vital Signs - 24 hr 11/18/25 11:04 11/18/25 11:15 11/18/25 12:00 Temperature Pulse Rate 68 67 Respiratory Rate 20 20 Blood Pressure Pulse Oximetry 98 Oxygen Delivery Nasal Cannula Oxygen Flow Rate 2 11/18/25 12:00 11/18/25 12:00 11/18/25 13:00 Temperature 98.8 F 98.8 F Pulse Rate 70 75 72 Respiratory Rate 28 H 23 H Blood Pressure 105/54 L 121/77 Pulse Oximetry 98 98 Oxygen Delivery Oxygen Flow Rate 11/18/25 14:00 11/18/25 14:00 11/18/25 15:00 Temperature 98.8 F 98.7 F Pulse Rate 74 69 65 Respiratory Rate 26 H 29 H Blood Pressure 119/63 124/64 Pulse Oximetry 99 97 Oxygen Delivery Oxygen Flow Rate 11/18/25 16:00 11/18/25 16:00 11/18/25 16:00 Temperature 98.8 F Pulse Rate 75 70 Respiratory Rate 25 H Blood Pressure 136/48 L Pulse Oximetry 97 93 Oxygen Delivery Nasal Cannula Oxygen Flow Rate 2 11/18/25 16:35 11/18/25 16:42 11/18/25 17:00 Temperature 98.7 F Pulse Rate 70 67 68 Respiratory Rate 20 20 16 Blood Pressure 137/48 L Pulse Oximetry 97 Oxygen Delivery Oxygen Flow Rate 11/18/25 18:00 11/18/25 18:00 11/18/25 19:00 Temperature 98.7 F 98.6 F Pulse Rate 74 74 75 Respiratory Rate 18 19 Blood Pressure 136/74 128/59 L Pulse Oximetry 98 96 Oxygen Delivery Oxygen Flow Rate 11/18/25 20:00 11/18/25 20:00 11/18/25 20:00 Temperature 98.8 F Pulse Rate 71 71 Respiratory Rate 19 Blood Pressure 130/89 Pulse Oximetry 95 95 Oxygen Delivery Nasal Cannula Oxygen Flow Rate 2 11/18/25 20:44 11/18/25 20:49 11/18/25 20:52 Temperature Pulse Rate 69 70 65 Respiratory Rate 22 H 23 H Blood Pressure Pulse Oximetry 98 Oxygen Delivery Nasal Cannula Oxygen Flow Rate 2 11/18/25 21:00 11/18/25 22:00 11/18/25 22:00 Temperature 98.5 F 98.2 F Pulse Rate 69 72 72 Respiratory Rate 21 H 21 H Blood Pressure 124/46 L 104/57 L Pulse Oximetry 97 93 Oxygen Delivery Oxygen Flow Rate 11/18/25 23:00 11/19/25 00:00 11/19/25 00:00 Temperature 98 F 97.9 F Pulse Rate 71 67 Respiratory Rate 22 H 22 H Blood Pressure 104/52 L 129/54 L Pulse Oximetry 93 95 95 Oxygen Delivery Nasal Cannula Oxygen Flow Rate 2 11/19/25 00:00 11/19/25 01:00 11/19/25 02:00 Temperature 97.8 F Pulse Rate 67 67 66 Respiratory Rate 20 Blood Pressure 100/75 Pulse Oximetry 95 Oxygen Delivery Oxygen Flow Rate 11/19/25 02:00 11/19/25 03:00 11/19/25 03:26 Temperature 97.7 F 97.7 F Pulse Rate 66 61 62 Respiratory Rate 19 23 H 22 H Blood Pressure 110/49 L 101/48 L Pulse Oximetry 96 100 Oxygen Delivery Oxygen Flow Rate 11/19/25 03:34 11/19/25 04:00 11/19/25 04:00 Temperature 97.6 F Pulse Rate 59 L 67 Respiratory Rate 18 26 H Blood Pressure 94/75 L Pulse Oximetry 91 91 Oxygen Delivery Nasal Cannula Oxygen Flow Rate 2 11/19/25 04:00 11/19/25 05:00 11/19/25 06:00 Temperature 97.3 F L 97.4 F L Pulse Rate 67 63 60 Respiratory Rate 24 H 24 H Blood Pressure 93/78 L 133/56 L Pulse Oximetry 94 96 Oxygen Delivery Oxygen Flow Rate 11/19/25 06:00 11/19/25 07:00 11/19/25 08:00 Temperature 97.4 F L 97.5 F L Pulse Rate 60 57 L 60 Respiratory Rate 16 21 H Blood Pressure 124/58 L 118/49 L Pulse Oximetry 99 100 Oxygen Delivery Oxygen Flow Rate 11/19/25 08:00 11/19/25 08:00 11/19/25 08:50 Temperature Pulse Rate 60 62 Respiratory Rate 19 Blood Pressure Pulse Oximetry 91 Oxygen Delivery Nasal Cannula Oxygen Flow Rate 2 11/19/25 08:59 11/19/25 08:59 11/19/25 09:00 Temperature 97.8 F Pulse Rate 60 65 64 Respiratory Rate 22 H 26 H Blood Pressure 111/61 Pulse Oximetry 97 98 Oxygen Delivery Nasal Cannula Oxygen Flow Rate 2 11/19/25 09:49 11/19/25 10:00 Temperature 98.1 F Pulse Rate 63 61 Respiratory Rate Blood Pressure 111/54 L Pulse Oximetry 87 L Oxygen Delivery Oxygen Flow Rate Intake/Output Intake/Output: Intake & Output 11/16/25 11/17/25 11/18/25 11/19/25 23:59 23:59 23:59 23:59 Intake Total 2196.7 2260 1443 Output Total 3800 2050 5 850 Balance -1603.3 210 -632 -850 Meds/Results Medications: Active Medications Generic Name Dose Route Start Last Admin Trade Name Freq PRN Reason Stop Dose Admin Acetaminophen 650 mg 11/09/25 13:04 Acetaminophen 650 Mg Suppository RECTAL Q6H PRN Mild Pain (1-3) or Fever Acetaminophen 650 mg 11/09/25 15:06 11/16/25 08:09 Acetaminophen 325 Mg Tablet PO 650 mg Q6H PRN Administration Mild Pain (1-3) or Fever Albuterol/Ipratropium 3 ml 11/10/25 08:03 11/16/25 13:21 Ipratropium 0.5 Mg/Albuterol Sulfate 2.5 Mg (Base) Ampul.Neb 3 Ml INHALATION 3 ml Q6HRT PRN Administration Wheezing Albuterol/Ipratropium 3 ml 11/16/25 16:00 11/19/25 08:58 Ipratropium 0.5 Mg/Albuterol Sulfate 2.5 Mg (Base) Ampul.Neb 3 Ml INHALATION 3 ml Q4HRT YFN Administration Aspirin 325 mg 11/12/25 08:00 11/19/25 08:17 Aspirin 325 Mg Tablet FEED TUBE 325 mg DAILY@0800 YFN Administration Atorvastatin Calcium 20 mg 11/10/25 09:00 11/19/25 08:17 Atorvastatin 20 Mg Tablet PO 20 mg DAILY YFN Administration Dextrose 12.5 gm 11/14/25 20:50 Dextrose 50% 25 Gm/50 Ml Syringe IV PUSH PRN PRN Hypoglycemia Protocol Docusate Sodium 100 mg 11/17/25 21:00 11/19/25 08:18 Docusate Sodium Liq 100 Mg/10 Ml Udc FEED TUBE 100 mg Q12HR YFN Administration Enoxaparin Sodium 40 mg 11/09/25 15:00 11/19/25 08:18 Enoxaparin 40 Mg/0.4 Ml Syringe SUB-Q 40 mg DAILY YFN Administration Furosemide 40 mg 11/20/25 09:00 Furosemide 40 Mg Tablet PO DAILY YFN Glucose 15 gm 11/14/25 20:50 Glucose Oral Gel 15 Gm Of Glucse In 37.5 Gm Tube PO PRN PRN Hypoglycemia Protocol Hydralazine HCl 25 mg 11/19/25 12:00 Hydralazine Hcl 25 Mg Tablet PO Q6HR YFN Cefepime HCl 2 gm/ Sodium 50 mls @ 100 mls/hr 11/10/25 09:00 11/19/25 08:18 Chloride IVPB 100 mls/hr Q12H YFN Administration Dextrose 1,000 mls @ 100 mls/hr 11/14/25 20:50 Dextrose 5% 1,000 Ml IVPB PRN PRN Hypoglycemia Protocol Levothyroxine Sodium 112 mcg 11/10/25 06:30 11/19/25 05:57 Levothyroxine Sodium 112 Mcg Tablet PO 112 mcg DAILY@0630 YFN Administration Levothyroxine Sodium 25 mcg 11/10/25 06:30 11/19/25 05:57 Levothyroxine Sodium 25 Mcg Tablet PO 25 mcg DAILY@0630 YFN Administration Miscellaneous Information 1 each 11/19/25 00:01 Please Renew Cefepime. Per [employer] Procedure, It Will Discontinue If Not Renewed. XX 12/19/25 00:00 CLARIFY YFN Ondansetron HCl 4 mg 11/09/25 13:04 Ondansetron Inj 4 Mg/2 Ml Vial IV PUSH Q4H PRN Nausea Pantoprazole Sodium 40 mg 11/10/25 09:00 11/19/25 08:17 Pantoprazole Sodium Iv 40 Mg Vial IV PUSH 40 mg QAM YFN Administration Polyethylene Glycol 17 gm 11/17/25 17:00 11/19/25 08:18 Polyethylene Glycol 3350 17 Gm Powd.Pack FEED TUBE 17 gm BID YFN Administration Sodium Chloride 10 ml 11/12/25 14:00 11/19/25 05:57 Central Line Flush IV PUSH 10 ml Q8HR YFN Administration Sodium Chloride 10 ml 11/12/25 09:17 Central Line Flush IV PUSH PRN PRN with TPN bag changes Sodium Chloride 20 ml 11/12/25 09:17 Central Line Flush IV PUSH PRN PRN after blood draws Radiology Results: ITS Impressions Abdomen X-Ray 11/09/25 13:22 Impression: 1. No acute abnormality. Chest/Abdomen/Pelvis CT 11/10/25 14:11 IMPRESSION: 1. Satisfactory position of endotracheal tube and nasogastric tube. 2. Perihilar vascular congestion of both lungs. Platelike atelectasis of mid left lung. Partial atelectasis of lung bases on both sides. Minimal bilateral pleural effusion. 3. Distended gallbladder containing calcified gallstone. Atrophic kidneys. Chest X-Ray 11/16/25 08:04 IMPRESSION: 1. Slight interval decrease in bilateral perihilar predominant interstitial and airspace opacities consistent with improving pulmonary edema and/or pneumonia. Labs Labs: Laboratory Results - last 24 hr 11/18/25 11/18/25 11/19/25 12:43 17:51 00:24 POC Capillary Glucose 87 88 78 11/19/25 05:53 POC Capillary Glucose 75
[2025-11-19] MEDS: ACETAMINOPHEN 325 MG TABLET 650 MG PO (20:48)
[2025-11-20] VITALS (15 sets, daily range): BP systolic 111–137; BP diastolic 44–62; PULSE 56–80; RESP 16–24; TEMP 36.1–37.2; O2SAT 90–100
[2025-11-20 04:59] LABS: Hematocrit 35.6 % (37.0-47.0); Hemoglobin 10.9 g/dL (12.0-15.0); Immature Granulocyte Percent A 1.3 % (0-0.5); Lymphocytes Absolute Auto 1.05 K/mm3 (0.9-3.2); Mean Corpuscular HGB Conc 30.6 g/dl (32-36); Mean Corpuscular Hemoglobin 28.6 pg (26-34); Mean Corpuscular Volume 93.4 fl (80-100); Nucleated Red Blood Cells Absolute Auto 0.000 K/mm3 (0.0-0.012); Nucleated Red Blood Cells Perc 0.0 % (0.0-0.2); Platelet Count Result 337 k/mm3 (150-375); Red Blood Count 3.81 M/mm3 (4.2-5.4); White Blood Count 9.4 K/mm3 (4.5-10.0)
[2025-11-20 05:17] LABS: Albumin Level 3.2 g/dL (3.5-5.1); Anion Gap 3 mmol/L (4-12); Blood Urea Nitrogen 41 mg/dL (7-17); Calcium 8.6 mg/dL (8.4-10.2); Carbon Dioxide 34 mmol/L (22-30); Chloride 100 mmol/L (98-107); Estimated CRCL calculation 57 ml/min; Estimated Glomerular Filt Rate 47; Glucose 70 mg/dL (65-110); Potassium 4.4 mmol/L (3.4-5.0); Sodium 137 mmol/L (137-145)
[2025-11-20] MEDS: LEVOTHYROXINE SODIUM 112 MCG TABLET PO (06:26)
[2025-11-20] MEDS: LEVOTHYROXINE SODIUM 25 MCG TABLET PO (06:26)
[2025-11-20] MEDS: CENTRAL LINE FLUSH 10 ML IV PUSH ×3 (06:26→21:25)
[2025-11-20] MEDS: DEXTROSE 50% 25 GM/50 ML SYRINGE IV PUSH (06:49)
--- NOTE | 2025-11-20 09:30 | PM.IMPN2 ---
Assessment and Plan Assessment and Plan (1) Acute hypercapnic respiratory failure: Code(s): J96.02 - Acute respiratory failure with hypercapnia Status: Acute (2) COVID: Code(s): U07.1 - COVID-19 Status: Acute (3) CHF exacerbation: Code(s): I50.9 - Heart failure, unspecified Status: Acute (4) Pneumonia: Code(s): J18.9 - Pneumonia, unspecified organism Status: Acute (5) COPD (chronic obstructive pulmonary disease): Code(s): J44.9 - Chronic obstructive pulmonary disease, unspecified Status: Acute Plan 1. Neurologically: Patient is weak and debilitated but alert oriented and following commands. Continue PT, OT, speech. Apparently she does not get much mobility at the [facility] 2. Cardiovascular: Blood pressure adequate. She has sinus bradycardia She continued to have frequent ectopy which has occurred throughout the admission. Bradycardia does not allow adding beta-grace. Echo reviewed. 3. Respiratory failure: Patient completed 7 days of antibiotics including cefepime and vancomycin today. No new culture data. She is on 2 L nasal cannula which is what she uses at home. She had a couple of days of progress spasms for which she was started on DuoNebs which I will change to p.r.n.. She has been weaned off steroids. Last chest x-ray was almost completely clear with mild interstitial prominence and no confluent infiltrate. Continue diuretics 4. GI: She has been able to tolerate p.o. intake and having bowel movements. Continue with bowel regimen. Advance diet to heart healthy 5. and Renal: Mildly elevated BUN and creatinine which will be recheck tomorrow. Continue her home dose of Lasix which is 40 mg p.o. daily. 6. Endocrine: Blood sugars are significantly better after we stop steroids. Continue sliding scale 7. DVT prophylaxis: Lovenox 8. Hematologically: Monitor count 9. Id: She completed antibiotics today. Cultures were negative. 10. Disposition: Currently in IMU PT OT, speech, incentive spirometer Subjective Date/time seen: 11/20/25 Overnight events reviewed. Afebrile. On 2 L nasal cannula. Good urine output. Otherwise in stable Tolerating liquid diet Denies any new complaints. She states she is feeling better. Denies any pain or shortness of breath. No cough. Feels weak. All other systems were reviewed and were negative. Interval history: 69-year-old lady was admitted on 11/13 with respiratory failure, positive COVID test and confluent infiltrates consistent with pneumonia. Patient has a history of hypothyroidism and CHF. Patient was placed on mechanical ventilation started on antibiotics, steroids, Miguel, tube feedings. Patient became volume overloaded and required intermittent diuresis. Her clinical condition slowly improved and on 11/18/2025 she was extubated. She finished antibiotics currently on nasal cannula 2 L Exam Narrative: General: Pt is alert awake and in NAD Lungs/Chest: Trachea central breath sounds are decreased at bases Cardiac:? S1-S2 is normal, regular rate and rhythm Abdomen:? Soft, nontender, nondistended, morbidly obese, hypoactive bowel sounds Extremities:? Chronic venous stasis changes with [place] appearance, weak pedal pulses bilaterally, edema on the legs Neuro:? AO x3, moves all 4 extremities Skin:? Skin is dry and flaky on lower extremities Psych:? Normal speech and affect Objective Data Vital Signs Vital Signs: Vital Signs - 24 hr 11/19/25 09:49 11/19/25 10:00 11/19/25 11:00 Temperature 36.7 C 36.8 C Pulse Rate 63 61 61 Respiratory Rate Blood Pressure 111/54 L 114/58 L Pulse Oximetry 87 L 99 Oxygen Delivery Oxygen Flow Rate 11/19/25 11:30 11/19/25 12:00 11/19/25 12:00 Temperature 36.8 C 36.8 C Pulse Rate 73 72 Respiratory Rate 20 Blood Pressure 111/56 L 111/56 L Pulse Oximetry 98 98 97 Oxygen Delivery Nasal Cannula Oxygen Flow Rate 2 11/19/25 12:00 11/19/25 13:00 11/19/25 14:00 Temperature 36.9 C 36.9 C Pulse Rate 72 60 62 Respiratory Rate Blood Pressure 120/57 L 109/45 L Pulse Oximetry 100 96 Oxygen Delivery Oxygen Flow Rate 11/19/25 14:00 11/19/25 14:00 11/19/25 14:15 Temperature 36.9 C Pulse Rate 60 59 L 59 L Respiratory Rate 20 19 Blood Pressure 109/45 L Pulse Oximetry 93 Oxygen Delivery Oxygen Flow Rate 11/19/25 15:00 11/19/25 15:18 11/19/25 16:00 Temperature 36.9 C 36.8 C Pulse Rate 65 65 Respiratory Rate 25 H 16 Blood Pressure 114/62 112/55 L Pulse Oximetry 100 99 98 Oxygen Delivery Nasal Cannula Oxygen Flow Rate 2 11/19/25 16:00 11/19/25 17:00 11/19/25 17:42 Temperature 36.7 C Pulse Rate 64 69 70 Respiratory Rate Blood Pressure Pulse Oximetry 100 Oxygen Delivery Oxygen Flow Rate 11/19/25 20:00 11/19/25 20:00 11/19/25 20:00 Temperature 36.7 C Pulse Rate 60 60 Respiratory Rate 26 H Blood Pressure 124/52 L Pulse Oximetry 95 95 Oxygen Delivery Nasal Cannula Oxygen Flow Rate 2 11/19/25 21:24 11/19/25 21:34 11/19/25 21:56 Temperature Pulse Rate 59 L 59 L Respiratory Rate 19 19 Blood Pressure Pulse Oximetry 97 Oxygen Delivery Nasal Cannula Oxygen Flow Rate 2 11/19/25 22:00 11/20/25 00:00 11/20/25 00:00 Temperature 36.2 C L Pulse Rate 63 58 L Respiratory Rate 23 H Blood Pressure 111/54 L Pulse Oximetry 99 99 Oxygen Delivery Nasal Cannula Oxygen Flow Rate 2 11/20/25 00:00 11/20/25 02:00 11/20/25 04:00 Temperature Pulse Rate 58 L 58 L Respiratory Rate Blood Pressure Pulse Oximetry 100 Oxygen Delivery Nasal Cannula Oxygen Flow Rate 2 11/20/25 04:00 11/20/25 04:00 11/20/25 06:00 Temperature 36.1 C L Pulse Rate 56 L 56 L 57 L Respiratory Rate 20 Blood Pressure 119/62 Pulse Oximetry 100 Oxygen Delivery Oxygen Flow Rate 11/20/25 08:00 Temperature 36.2 C L Pulse Rate 65 Respiratory Rate 18 Blood Pressure 125/59 L Pulse Oximetry 100 Oxygen Delivery Oxygen Flow Rate Intake/Output Intake/Output: Intake & Output 11/17/25 11/18/25 11/19/25 11/20/25 23:59 23:59 23:59 23:59 Intake Total 2260 1443 340 Output Total 2050 2076 1550 600 Balance 210 -632 -1210 -600 Meds/Results Medications: Active Medications Generic Name Dose Route Start Last Admin Trade Name Freq PRN Reason Stop Dose Admin Acetaminophen 650 mg 11/09/25 15:06 11/19/25 20:48 Acetaminophen 325 Mg Tablet PO 650 mg Q6H PRN Administration Mild Pain (1-3) or Fever Albuterol/Ipratropium 3 ml 11/10/25 08:03 11/16/25 13:21 Ipratropium 0.5 Mg/Albuterol Sulfate 2.5 Mg (Base) Ampul.Neb 3 Ml INHALATION 3 ml Q6HRT PRN Administration Wheezing Albuterol/Ipratropium 3 ml 11/19/25 14:00 11/19/25 21:24 Ipratropium 0.5 Mg/Albuterol Sulfate 2.5 Mg (Base) Ampul.Neb 3 Ml INHALATION 3 ml TIDRT YFN Administration Aspirin 325 mg 11/12/25 08:00 11/19/25 08:17 Aspirin 325 Mg Tablet FEED TUBE 325 mg DAILY@0800 YFN Administration Atorvastatin Calcium 20 mg 11/10/25 09:00 11/19/25 08:17 Atorvastatin 20 Mg Tablet PO 20 mg DAILY YFN Administration Dextrose 12.5 gm 11/14/25 20:50 Dextrose 50% 25 Gm/50 Ml Syringe IV PUSH PRN PRN Hypoglycemia Protocol Docusate Sodium 100 mg 11/17/25 21:00 11/19/25 20:49 Docusate Sodium Liq 100 Mg/10 Ml Udc FEED TUBE Not Given Q12HR [facility] Enoxaparin Sodium 40 mg 11/09/25 15:00 11/19/25 08:18 Enoxaparin 40 Mg/0.4 Ml Syringe SUB-Q 40 mg DAILY YFN Administration Furosemide 40 mg 11/20/25 09:00 Furosemide 40 Mg Tablet PO DAILY [facility] Glucose 15 gm 11/14/25 20:50 Glucose Oral Gel 15 Gm Of Glucse In 37.5 Gm Tube PO PRN PRN Hypoglycemia Protocol Hydralazine HCl 25 mg 11/19/25 12:00 11/20/25 06:26 Hydralazine Hcl 25 Mg Tablet PO 25 mg Q6HR YFN Administration Dextrose 1,000 mls @ 100 mls/hr 11/14/25 20:50 Dextrose 5% 1,000 Ml IVPB PRN PRN Hypoglycemia Protocol Levothyroxine Sodium 112 mcg 11/10/25 06:30 11/20/25 06:26 Levothyroxine Sodium 112 Mcg Tablet PO 112 mcg DAILY@0630 YFN Administration Levothyroxine Sodium 25 mcg 11/10/25 06:30 11/20/25 06:26 Levothyroxine Sodium 25 Mcg Tablet PO 25 mcg DAILY@0630 YFN Administration Ondansetron HCl 4 mg 11/09/25 13:04 Ondansetron Inj 4 Mg/2 Ml Vial IV PUSH Q4H PRN Nausea Pantoprazole Sodium 40 mg 11/10/25 09:00 11/19/25 08:17 Pantoprazole Sodium Iv 40 Mg Vial IV PUSH 40 mg QAM YFN Administration Polyethylene Glycol 17 gm 11/17/25 17:00 11/19/25 16:09 Polyethylene Glycol 3350 17 Gm Powd.Pack FEED TUBE 17 gm BID YFN Administration Sodium Chloride 10 ml 11/12/25 14:00 11/20/25 06:26 Central Line Flush IV PUSH 10 ml Q8HR YFN Administration Sodium Chloride 10 ml 11/12/25 09:17 Central Line Flush IV PUSH PRN PRN with TPN bag changes Sodium Chloride 20 ml 11/12/25 09:17 Central Line Flush IV PUSH PRN PRN after blood draws Radiology Results: ITS Impressions Abdomen X-Ray 11/09/25 13:22 Impression: 1. No acute abnormality. Chest/Abdomen/Pelvis CT 11/10/25 14:11 IMPRESSION: 1. Satisfactory position of endotracheal tube and nasogastric tube. 2. Perihilar vascular congestion of both lungs. Platelike atelectasis of mid left lung. Partial atelectasis of lung bases on both sides. Minimal bilateral pleural effusion. 3. Distended gallbladder containing calcified gallstone. Atrophic kidneys. Chest X-Ray 11/16/25 08:04 IMPRESSION: 1. Slight interval decrease in bilateral perihilar predominant interstitial and airspace opacities consistent with improving pulmonary edema and/or pneumonia. Labs Labs: Laboratory Results - last 24 hr 11/19/25 11/19/25 11/20/25 11:22 18:15 00:41 WBC RBC Hgb Hct MCV MCH MCHC RDW Plt Count MPV Immature Gran % (Auto) Neut % (Auto) Lymph % (Auto) Mc[place]osh % (Auto) Eos % (Auto) Baso % (Auto) Lymph # (Auto) [place] # (Auto) Eos # (Auto) Baso # (Auto) Abs Immat Gran (auto) Absolute Neuts (auto) Absolute Nucleated RBC Nucleated RBC % Sodium Potassium Chloride Carbon Dioxide Anion Gap BUN Creatinine Estim Creat Clear Calc Estimated GFR Glucose POC Capillary Glucose 72 110 H 76 Calcium Phosphorus Albumin 11/20/25 11/20/25 11/20/25 04:21 06:22 06:42 WBC 9.4 RBC 3.81 L Hgb 10.9 L Hct 35.6 L MCV 93.4 MCH 28.6 MCHC 30.6 L RDW 15.1 H Plt Count 337 MPV 9.9 Immature Gran % (Auto) 1.3 H Neut % (Auto) 72.3 Lymph % (Auto) 11.2 L Mcintosh % (Auto) 7.0 Eos % (Auto) 7.9 H Baso % (Auto) 0.3 Lymph # (Auto) 1.05 [place]osh # (Auto) 0.7 H Eos # (Auto) 0.7 H Baso # (Auto) 0.0 Abs Immat Gran (auto) 0.12 H Absolute Neuts (auto) 6.8 H Absolute Nucleated RBC 0.000 Nucleated RBC % 0.0 Sodium 137 Potassium 4.4 Chloride 100 Carbon Dioxide 34 H Anion Gap 3 L BUN 41 H D Creatinine 1.15 H Estim Creat Clear Calc 57 Estimated GFR 47 L Glucose 70 POC Capillary Glucose 62 L 60 L Calcium 8.6 Phosphorus 4.1 Albumin 3.2 L 11/20/25 07:11 WBC RBC Hgb Hct MCV MCH MCHC RDW Plt Count MPV Immature Gran % (Auto) Neut % (Auto) Lymph % (Auto) [place] % (Auto) Eos % (Auto) Baso % (Auto) Lymph # (Auto) [place] # (Auto) Eos # (Auto) Baso # (Auto) Abs Immat Gran (auto) Absolute Neuts (auto) Absolute Nucleated RBC Nucleated RBC % Sodium Potassium Chloride Carbon Dioxide Anion Gap BUN Creatinine Estim Creat Clear Calc Estimated GFR Glucose POC Capillary Glucose 124 H Calcium Phosphorus Albumin Quality VTE Prophylaxis VTE prophylaxis: pharmacologic ordered
[2025-11-20] MEDS: IPRATROPIUM 0.5 MG/ALBUTEROL SULFATE 2.5 MG (BASE) AMPUL.NEB 3 ML INHALATION ×3 (09:35→20:57)
[2025-11-20] MEDS: PANTOPRAZOLE SODIUM IV 40 MG VIAL IV PUSH (10:00)
[2025-11-20] MEDS: ENOXAPARIN 40 MG/0.4 ML SYRINGE SUB-Q (10:00)
[2025-11-20] MEDS: ATORVASTATIN 20 MG TABLET PO (10:01)
[2025-11-20] MEDS: ASPIRIN 325 MG TABLET FEED TUBE (10:01)
[2025-11-20] MEDS: FUROSEMIDE 40 MG TABLET PO (10:02)
[2025-11-20] MEDS: ACETAMINOPHEN 325 MG TABLET 650 MG PO ×2 (14:54→21:24)
[2025-11-21] VITALS: BP 156/67; PULSE 65; PULSE 67; RESP 22; TEMP 36.6; O2SAT 92
[2025-11-21 02:00] VITALS: PULSE 66
[2025-11-21 04:00] VITALS: BP 170/63; PULSE 61; RESP 20; TEMP 36.5; O2SAT 91
[2025-11-21] MEDS: CENTRAL LINE FLUSH 10 ML IV PUSH (05:37)
[2025-11-21] MEDS: LEVOTHYROXINE SODIUM 112 MCG TABLET PO (05:37)
[2025-11-21] MEDS: LEVOTHYROXINE SODIUM 25 MCG TABLET PO (05:37)
[2025-11-21 06:51] LABS: Hematocrit 36.6 % (37.0-47.0); Hemoglobin 11.4 g/dL (12.0-15.0); Mean Corpuscular HGB Conc 31.1 g/dl (32-36); Mean Corpuscular Hemoglobin 28.7 pg (26-34); Mean Corpuscular Volume 92.2 fl (80-100); Platelet Count Result 397 k/mm3 (150-375); Red Blood Count 3.97 M/mm3 (4.2-5.4); White Blood Count 9.7 K/mm3 (4.5-10.0)
[2025-11-21 08:00] VITALS: BP 145/54; PULSE 69; PULSE 75; RESP 20; TEMP 37; O2SAT 94
[2025-11-21 08:33] VITALS: PULSE 72; RESP 20; O2SAT 94
[2025-11-21] MEDS: IPRATROPIUM 0.5 MG/ALBUTEROL SULFATE 2.5 MG (BASE) AMPUL.NEB 3 ML INHALATION (08:33)
[2025-11-21 08:46] VITALS: PULSE 73; RESP 20
[2025-11-21 08:55] LABS: Alanine Aminotransferase 19 U/L (6-35); Albumin Level 3.2 g/dL (3.5-5.1); Alkaline Phosphatase 85 U/L (38-126); Anion Gap 3 mmol/L (4-12); Aspartate Amino Transferase 30 U/L (14-36); Bilirubin,Total 0.9 mg/dL (0.2-1.3); Blood Urea Nitrogen 35 mg/dL (7-17); Calcium 8.7 mg/dL (8.4-10.2); Carbon Dioxide 33 mmol/L (22-30); Chloride 99 mmol/L (98-107); Estimated CRCL calculation 55 ml/min; Estimated Glomerular Filt Rate 45; Glucose 82 mg/dL (65-110); Potassium 4.4 mmol/L (3.4-5.0); Sodium 135 mmol/L (137-145); Total Protein 5.9 g/dL (6.3-8.2)
--- NOTE | 2025-11-21 09:23 | PM.IMPN2 ---
Assessment and Plan Assessment and Plan (1) Acute hypercapnic respiratory failure: Code(s): J96.02 - Acute respiratory failure with hypercapnia Status: Acute (2) COVID: Code(s): U07.1 - COVID-19 Status: Acute (3) CHF exacerbation: Code(s): I50.9 - Heart failure, unspecified Status: Acute (4) Pneumonia: Code(s): J18.9 - Pneumonia, unspecified organism Status: Acute (5) COPD (chronic obstructive pulmonary disease): Code(s): J44.9 - Chronic obstructive pulmonary disease, unspecified Status: Acute Plan 1. Neurologically: Patient is weak and debilitated but alert oriented and following commands. Continue PT, OT, speech. Apparently she does not get much mobility at the [facility] 2. Cardiovascular: Blood pressure adequate. She has sinus bradycardia She continued to have frequent ectopy which has occurred throughout the admission. Bradycardia does not allow adding beta-grace. Echo reviewed. 3. Respiratory failure: Patient completed 7 days of antibiotics including cefepime and vancomycin today. No new culture data. She is on 2 L nasal cannula at [facility] and currently on room air. She had a couple of days of progress spasms for which she was started on DuoNebs which I will change to p.r.n.. She has been weaned off steroids. Last chest x-ray was almost completely clear with mild interstitial prominence and no confluent infiltrate. Continue diuretics 4. GI: She has been able to tolerate p.o. intake and having bowel movements. Continue with bowel regimen. Advance diet to heart healthy 5. and Renal: Mildly elevated BUN and creatinine which will be recheck tomorrow. Continue her home dose of Lasix which is 40 mg p.o. daily. 6. Endocrine: Blood sugars are significantly better after we stop steroids. Continue sliding scale 7. DVT prophylaxis: Lovenox 8. Hematologically: Monitor count 9. Id: She completed antibiotics today. Cultures were negative. 10. Disposition: Transfer to [facility] PT OT, speech, incentive spirometer Will discuss with care coordination and PT OT regarding transferring back to [facility]. Subjective Date/time seen: 11/21/25 Patient denies any complaints this morning states. She is on p.o. diet. She is not on any infusion. Good urine output. She is wondering when she can go back to [facility]. Patient denies fever, chest pain, shortness of breath, cough, nausea vomiting, abdominal pain,, diarrhea, headache or constipation. All other systems were reviewed and were negative Afebrile stable vital signs On room air Interval history: 69-year-old lady was admitted on 11/13 with respiratory failure, positive COVID test and confluent infiltrates consistent with pneumonia. Patient has a history of hypothyroidism and CHF. Patient was placed on mechanical ventilation started on antibiotics, steroids, Miguel, tube feedings. Patient became volume overloaded and required intermittent diuresis. Her clinical condition slowly improved and on 11/18/2025 she was extubated. She finished antibiotics currently on nasal cannula 2 L Review of Systems Review of Systems: All systems reviewed & are unremarkable except as noted in HPI and below (HPI) Exam Narrative: General: Pt is alert awake and in NAD Lungs/Chest: Trachea central breath sounds are decreased at bases Cardiac:? S1-S2 is normal, regular rate and rhythm Abdomen:? Soft, nontender, nondistended, morbidly obese, hypoactive bowel sounds Extremities:? Chronic venous stasis changes with [place] appearance, weak pedal pulses bilaterally, edema on the legs Neuro:? AO x3, moves all 4 extremities Skin:? Skin is dry and flaky on lower extremities Psych:? Normal speech and affect Objective Data Vital Signs Vital Signs: Vital Signs - 24 hr 11/20/25 09:35 11/20/25 09:35 11/20/25 09:50 Temperature Pulse Rate 64 64 60 Respiratory Rate 24 H 24 H 20 Blood Pressure Pulse Oximetry 100 Oxygen Delivery Nasal Cannula Oxygen Flow Rate 2 Fraction of Inspired Oxygen 11/20/25 10:10 11/20/25 12:00 11/20/25 12:00 Temperature 37.0 C Pulse Rate 80 Respiratory Rate 20 Blood Pressure 137/47 L Pulse Oximetry 100 100 Oxygen Delivery Nasal Cannula Nasal Cannula Oxygen Flow Rate 2 2 Fraction of Inspired Oxygen 11/20/25 14:50 11/20/25 14:50 11/20/25 15:00 Temperature Pulse Rate 69 69 70 Respiratory Rate 20 20 20 Blood Pressure Pulse Oximetry 100 Oxygen Delivery Room Air Oxygen Flow Rate Fraction of Inspired Oxygen 21 11/20/25 16:00 11/20/25 16:00 11/20/25 20:00 Temperature 37.2 C Pulse Rate 77 Respiratory Rate 18 Blood Pressure 126/54 L Pulse Oximetry 93 93 Oxygen Delivery Room Air Room Air Oxygen Flow Rate Fraction of Inspired Oxygen 11/20/25 20:00 11/20/25 20:00 11/20/25 20:57 Temperature 36.9 C Pulse Rate 66 70 Respiratory Rate 16 Blood Pressure 134/44 L Pulse Oximetry 90 94 Oxygen Delivery Room Air Oxygen Flow Rate Fraction of Inspired Oxygen 11/20/25 20:57 11/20/25 21:03 11/20/25 22:00 Temperature Pulse Rate 69 68 68 Respiratory Rate 19 17 Blood Pressure Pulse Oximetry Oxygen Delivery Oxygen Flow Rate Fraction of Inspired Oxygen 11/21/25 00:00 11/21/25 00:00 11/21/25 00:00 Temperature 36.6 C Pulse Rate 65 67 Respiratory Rate 22 H Blood Pressure 156/67 H Pulse Oximetry 92 Oxygen Delivery Room Air Oxygen Flow Rate Fraction of Inspired Oxygen 21 11/21/25 02:00 11/21/25 04:00 11/21/25 04:00 Temperature Pulse Rate 66 61 Respiratory Rate Blood Pressure Pulse Oximetry Oxygen Delivery Room Air Oxygen Flow Rate Fraction of Inspired Oxygen 11/21/25 04:00 11/21/25 08:33 11/21/25 08:33 Temperature 36.5 C Pulse Rate 61 72 72 Respiratory Rate 20 20 20 Blood Pressure 170/63 H Pulse Oximetry 91 94 Oxygen Delivery Room Air Oxygen Flow Rate Fraction of Inspired Oxygen 11/21/25 08:46 Temperature Pulse Rate 73 Respiratory Rate 20 Blood Pressure Pulse Oximetry Oxygen Delivery Oxygen Flow Rate Fraction of Inspired Oxygen Intake/Output Intake/Output: Intake & Output 11/18/25 11/19/25 11/20/25 11/21/25 23:59 23:59 23:59 23:59 Intake Total 6999 340 1280 Output Total 2075 1550 1700 1000 [facility] -632 -1210 -170 -1000 Meds/Results Medications: Active Medications Generic Name Dose Route Start Last Admin Trade Name Freq PRN Reason Stop Dose Admin Acetaminophen 650 mg 11/09/25 15:06 11/20/25 21:24 Acetaminophen 325 Mg Tablet PO 650 mg Q6H PRN Administration Mild Pain (1-3) or Fever Albuterol/Ipratropium 3 ml 11/10/25 08:03 11/16/25 13:21 Ipratropium 0.5 Mg/Albuterol Sulfate 2.5 Mg (Base) Ampul.Neb 3 Ml INHALATION 3 ml Q6HRT PRN Administration Wheezing Albuterol/Ipratropium 3 ml 11/19/25 14:00 11/21/25 08:33 Ipratropium 0.5 Mg/Albuterol Sulfate 2.5 Mg (Base) Ampul.Neb 3 Ml INHALATION 3 ml TIDRT YFN Administration Alteplase, Recombinant 2 mg 11/21/25 05:52 Alteplase 2 Mg Vial (Cathflo) IV PUSH ONCE PRN Line Occlusion Aspirin 325 mg 11/12/25 08:00 11/20/25 10:01 Aspirin 325 Mg Tablet FEED TUBE 325 mg DAILY@0800 YFN Administration Atorvastatin Calcium 20 mg 11/10/25 09:00 11/20/25 10:01 Atorvastatin 20 Mg Tablet PO 20 mg DAILY YFN Administration Dextrose 12.5 gm 11/14/25 20:50 Dextrose 50% 25 Gm/50 Ml Syringe IV PUSH PRN PRN Hypoglycemia Protocol Docusate Sodium 100 mg 11/17/25 21:00 11/20/25 21:24 Docusate Sodium Liq 100 Mg/10 Ml Udc FEED TUBE 100 mg Q12HR YFN Administration Enoxaparin Sodium 40 mg 11/09/25 15:00 11/20/25 10:00 Enoxaparin 40 Mg/0.4 Ml Syringe SUB-Q 40 mg DAILY YFN Administration Furosemide 40 mg 11/20/25 09:00 11/20/25 10:02 Furosemide 40 Mg Tablet PO 40 mg DAILY YFN Administration Glucose 15 gm 11/14/25 20:50 Glucose Oral Gel 15 Gm Of Glucse In 37.5 Gm Tube PO PRN PRN Hypoglycemia Protocol Hydralazine HCl 25 mg 11/19/25 12:00 11/21/25 05:37 Hydralazine Hcl 25 Mg Tablet PO 25 mg Q6HR YFN Administration Dextrose 1,000 mls @ 100 mls/hr 11/14/25 20:50 Dextrose 5% 1,000 Ml IVPB PRN PRN Hypoglycemia Protocol Levothyroxine Sodium 112 mcg 11/10/25 06:30 11/21/25 05:37 Levothyroxine Sodium 112 Mcg Tablet PO 112 mcg DAILY@0630 YFN Administration Levothyroxine Sodium 25 mcg 11/10/25 06:30 11/21/25 05:37 Levothyroxine Sodium 25 Mcg Tablet PO 25 mcg DAILY@0630 YFN Administration Ondansetron HCl 4 mg 11/09/25 13:04 Ondansetron Inj 4 Mg/2 Ml Vial IV PUSH Q4H PRN Nausea Pantoprazole Sodium 40 mg 11/10/25 09:00 11/20/25 10:00 Pantoprazole Sodium Iv 40 Mg Vial IV PUSH 40 mg QAM YFN Administration Polyethylene Glycol 17 gm 11/17/25 17:00 11/20/25 17:45 Polyethylene Glycol 3350 17 Gm Powd.Pack FEED TUBE Not Given BID YFN Sodium Chloride 10 ml 11/12/25 14:00 11/21/25 05:37 Central Line Flush IV PUSH 10 ml Q8HR YFN Administration Sodium Chloride 10 ml 11/12/25 09:17 Central Line Flush IV PUSH PRN PRN with TPN bag changes Sodium Chloride 20 ml 11/12/25 09:17 Central Line Flush IV PUSH PRN PRN after blood draws Radiology Results: ITS Impressions Abdomen X-Ray 11/09/25 13:22 Impression: 1. No acute abnormality. Chest/Abdomen/Pelvis CT 11/10/25 14:11 IMPRESSION: 1. Satisfactory position of endotracheal tube and nasogastric tube. 2. Perihilar vascular congestion of both lungs. Platelike atelectasis of mid left lung. Partial atelectasis of lung bases on both sides. Minimal bilateral pleural effusion. 3. Distended gallbladder containing calcified gallstone. Atrophic kidneys. Chest X-Ray 11/16/25 08:04 IMPRESSION: 1. Slight interval decrease in bilateral perihilar predominant interstitial and airspace opacities consistent with improving pulmonary edema and/or pneumonia. Labs Labs: Laboratory Results - last 24 hr 11/20/25 11/20/25 11/21/25 11:39 16:35 01:32 WBC RBC Hgb Hct MCV MCH MCHC RDW Plt Count MPV Sodium Potassium Chloride Carbon Dioxide Anion Gap BUN Creatinine Estim Creat Clear Calc Estimated GFR Glucose POC Capillary Glucose 105 125 H 94 Calcium Total Bilirubin AST ALT Alkaline Phosphatase Total Protein Albumin 11/21/25 11/21/25 11/21/25 05:39 06:44 08:19 WBC 9.7 RBC 3.97 L Hgb 11.4 L Hct 36.6 L MCV 92.2 MCH 28.7 MCHC 31.1 L RDW 15.1 H Plt Count 397 H MPV 10.0 Sodium 135 L Potassium 4.4 Chloride 99 Carbon Dioxide 33 H Anion Gap 3 L BUN 35 H Creatinine 1.19 H Estim Creat Clear Calc 55 Estimated GFR 45 L Glucose 82 POC Capillary Glucose 85 Calcium 8.7 Total Bilirubin 0.9 AST 30 ALT 19 Alkaline Phosphatase 85 Total Protein 5.9 L Albumin 3.2 L
[2025-11-21] MEDS: FUROSEMIDE 40 MG TABLET PO (09:46)
[2025-11-21] MEDS: ASPIRIN 325 MG TABLET FEED TUBE (09:46)
[2025-11-21] MEDS: ATORVASTATIN 20 MG TABLET PO (09:46)
[2025-11-21] MEDS: ENOXAPARIN 40 MG/0.4 ML SYRINGE SUB-Q (09:47)
[2025-11-21] MEDS: PANTOPRAZOLE SODIUM IV 40 MG VIAL IV PUSH (09:47)
--- NOTE | 2025-11-21 10:40 | PM.DS ---
DS: Admitting Diagnosis Discharge Date 11/21/2025 Admitting Diagnosis Acute respiratory failure DS: Discharge Diagnosis Discharge Diagnosis (1) Acute hypercapnic respiratory failure: Code(s): J96.02 - Acute respiratory failure with hypercapnia Status: Acute (2) COVID: Code(s): U07.1 - COVID-19 Status: Acute (3) CHF exacerbation: Code(s): I50.9 - Heart failure, unspecified Status: Acute (4) Pneumonia: Code(s): J18.9 - Pneumonia, unspecified organism Status: Acute (5) COPD (chronic obstructive pulmonary disease): Code(s): J44.9 - Chronic obstructive pulmonary disease, unspecified Status: Acute DS: Summary Hospital Course Reason for hospitalization: Acute respiratory failure Hospital Course: 69-year-old morbidly obese female with past history of congestive heart failure, hypothyroidism, hypertension, asthma, obesity, gout, iron deficiency anemia was admitted on 11/09 from [facility] with chief complaint of shortness of breath. Patient was DNR DNI at the time of presentation but agreed for intubation. Patient was intubated. Patient also tested positive for COVID and was found to be having congestive heart failure with pulmonary edema along with ats concerning of pneumonia Patient was treated for pneumonia with antibiotics including Rocephin azithromycin and vancomycin Patient was treated for COVID with remdesivir and dexamethasone Patient was also diuresed with IV diuretics She was placed on mechanical ventilation and sedated with Versed and fentanyl For the hospital course patient gradually improved with decrease requirement of FiO2 and PEEP on the ventilator. Patient completed a 7 day course of antibiotics which were later switched to cefepime and vancomycin. She also completed course of dexamethasone and remdesivir She was successfully extubated on 11/18. Patient was eventually transferred out of ICU. Diet was slowly advanced to heart healthy. She was evaluated by PT OT. She has fairly limited activity even prior to coming to the hospital as she the retirement facility Post extubation her blood pressure was elevated. She is normal in sinus bradycardia. She was started on hydralazine short-acting which he is going to be switched to Norvasc for blood pressure apart from that no significant changes have been made in her medications. Patient is now on room air although she does wear oxygen at home patient will be discharged back to [facility] facility for further care and therapy. Time Spent with Patient Time attestation: Total time spent providing and/or coordinating discharge services: Exam Narrative: General: Pt is alert awake and in NAD Lungs/Chest: Trachea central breath sounds are decreased at bases Cardiac:? S1-S2 is normal, regular rate and rhythm Abdomen:? Soft, nontender, nondistended, morbidly obese, hypoactive bowel sounds Extremities:? Chronic venous stasis changes with [place] appearance, weak pedal pulses bilaterally, edema on the legs Neuro:? AO x3, moves all 4 extremities Skin:? Skin is dry and flaky on lower extremities Psych:? Normal speech and affect DS: Data Data Completed and Pending Completed studies during hospitalization: CT chest abdomen IMPRESSION: 1. Satisfactory position of endotracheal tube and nasogastric tube. 2. Perihilar vascular congestion of both lungs. Platelike atelectasis of mid left lung. Partial atelectasis of lung bases on both sides. Minimal bilateral pleural effusion. 3. Distended gallbladder containing calcified gallstone. Atrophic kidneys. Labs on day of discharge: Labs from last 24 hours 11/21/25 11/21/25 11/21/25 08:19 06:44 05:39 WBC 9.7 RBC 3.97 L Hgb 11.4 L Hct 36.6 L MCV 92.2 MCH 28.7 MCHC 31.1 L RDW 15.1 H Plt Count 397 H MPV 10.0 Sodium 135 L Potassium 4.4 Chloride 99 Carbon Dioxide 33 H Anion Gap 3 L BUN 35 H Creatinine 1.19 H Estim Creat Clear Calc 55 Estimated GFR 45 L Glucose 82 POC Capillary Glucose 85 Calcium 8.7 Total Bilirubin 0.9 AST 30 ALT 19 Alkaline Phosphatase 85 Total Protein 5.9 L Albumin 3.2 L 11/21/25 11/20/25 11/20/25 01:32 16:35 11:39 WBC RBC Hgb Hct MCV MCH MCHC RDW Plt Count MPV Sodium Potassium Chloride Carbon Dioxide Anion Gap BUN Creatinine Estim Creat Clear Calc Estimated GFR Glucose POC Capillary Glucose 94 125 H 105 Calcium Total Bilirubin AST ALT Alkaline Phosphatase Total Protein Albumin Discharge Plan Discharge Attending physician on discharge: Wilmer Hemphill Consulting providers: Handy Phillips Discharging Clinician: Wilmer Hemphill Patient Disposition: SNF Activity: other - see discharge instructions Diet: heart healthy Patient Instructions: Dexamethasone (By injection), Baricitinib (By mouth), Remdesivir (By injection), Endotracheal Tube (GEN), Ventilator (GEN), COVID-19 (Coronavirus Disease 2019) (DC), COVID-19 and Chronic Health Conditions (DC) Patient Language: Martiniquais Stand Alone Forms: General Discharge Information, Assisted Discharge Discharge Medications: New amlodipine [Norvasc] 10 mg tablet 10 mg PO DAILY Qty: 30 0RF Continued furosemide 40 mg tablet 40 mg PO DAILY levothyroxine 137 mcg tablet 137 mcg PO DAILY atorvastatin 20 mg tablet 20 mg PO DAILY ferrous sulfate 325 mg (65 mg iron) tablet 325 mg PO DAILY gabapentin 300 mg capsule 300 mg PO TID sennosides-docusate sodium [Senokot-S] 8.6-50 mg Tablet 1 tablet PO HS Qty: 30 0RF acetaminophen [Tylenol Extra Strength] 500 mg tablet 1,000 mg PO Q6H PRN (Reason: fever or pain) cholecalciferol (vitamin D3) 1,250 mcg (50,000 unit) capsule 1,250 mcg PO WEEKLY Rx Instructions: Pt takes on Tuesdays. miconazole nitrate 2 % cream 1 applic topical BID Rx Instructions: Apply topically to rash in josr-area and skin folds. urea 20 % cream 1 applic topical DAILY Rx Instructions: Apply topically to bilateral legs daily. No Action allopurinol 100 mg tablet 100 mg PO DAILY montelukast 10 mg tablet 10 mg PO HS Date of admission: 11/09/25 13:54 Primary Care Provider: ReidHelen Admitting Provider: Ayan Puente Attending physician on admission: Ayan Puente Condition: Serious Quality VTE Prophylaxis VTE prophylaxis: pharmacologic ordered Hospitalist MIPS Heart Failure (Exclusion) Patient has history of Heart Transplant or Left Ventricular Assistive Device?: No IF YES, STOP HERE Heart Failure (Qualifier) Patient has current or prior documentation of LVEF less than or equal to 40%, or mod/servere depressed LVSF?: No IF NO, STOP HERE
== END 2025-11-21 12:26 | DRG 870 ==
LOC: ANHED 10:49 → ANHICU 13:40
PROVIDERS: Internal Medicine; Internal Medicine Critical Care Medicine; Nurse Practitioner; Nurse Practitioner Gerontology; Admitting Provider Internal Medicine; Emergency Provider Emergency Medicine; PCP Student in an Organized Health Care Education/Training Program; Visit Provider Internal Medicine
DX: A41.89 Other specified sepsis (principal); U07.1 COVID-19; J12.82 Pneumonia due to coronavirus disease 2019; J96.02 Acute respiratory failure with hypercapnia; I42.9 Cardiomyopathy, unspecified; Z68.43 Body mass index [BMI] 50.0-59.9, adult; J96.10 Chronic respiratory failure, unspecified whether with hypoxia or hypercapnia; I11.0 Hypertensive heart disease with heart failure; I50.9 Heart failure, unspecified; D50.9 Iron deficiency anemia, unspecified; E03.9 Hypothyroidism, unspecified; M10.9 Gout, unspecified; E66.01 Morbid (severe) obesity due to excess calories; J44.9 Chronic obstructive pulmonary disease, unspecified
CPT/HCPCS: 36415; 36569; 36600; 71045; 71250; 74176; 80048; 80053; 80069; 80202; 81001; 82375; 82805; 82948; 83050; 83605; 83735; 83880; 84100; 84145; 84443; 84484; 85018; 85025; 85027; 85610; 85730; 86140; 87040; 87070; 87086; 87205; 87637; 87641; 92610; 93005; 94002; 94003; 94640; 96365; 96366; 96367; 97162; 99285; A9270; C1751; G0378; J0248; J0456; J0692; J0696; J1100; J1650; J1938; J2003; J2250; J2470; J3010; J3373; J3475; J7030; J7040; J7050; J7060; J7639; P9047